=== PATIENT | female | born 1960 | race Caucasian/White ===

== ENCOUNTER → 2017-08-10 07:52 | Outpatient (CLI) | payer OTHER, SELFPAY ==
[2017-08-10 10:47] LABS: ALB/GLOB Ratio 1.1 RATIO (0.9-2.4); AST(SGOT) 27 U/L (15-37); Alanine Aminotransfer ALT/SGPT 25 U/L (13-56); Albumin, Serum 3.3 g/dL (3.2-5.0); Alkaline Phosphatase 87 U/L (45-117); Anion Gap 7 (5-15); BUN 15 mg/dL (7-18); BUN/Creat Ratio 24.5 RATIO (10-20); Bilirubin, Direct 0.15 mg/dL (0.00-0.30); Calcium,Total 8.6 mg/dL (8.5-10.1); Chloride 103 mmol/L (98-107); Cholesterol 150 mg/dL (200); Creatinine, Serum 0.61 mg/dL (0.55-1.02); EST Glomerular Filtration Rate 107 mL/min (>60); Est Glom Filt Rate - Afr Amer 130 mL/min (>60); Globulin 3.1 g/dL (2.2-4.2); Glucose 66 mg/dL (74-106); High Density Lipoprotein 80 mg/dL; Potassium 3.5 mmol/L (3.5-5.1); Protein, Total 6.4 g/dL (6.4-8.2); Sodium Level 141 mmol/L (136-145); Triglycerides 38 mg/dL; Very Low Density Lipoprotein 8 mg/dL (5-40)
[2017-08-10 12:42] LABS: Absolute Lymphocyte Count 1.02 X10^3/ul (0.83-4.51); Absolute Neutrophil Count 2.3 X10^3/uL (2.0-7.7); Basophil# 0.04 X10^3/uL; Eosinophil# 0.31 X10^3/uL; Eosinophils% 7.6 % (0-5); Hematocrit 38.3 % (37-47); Hemoglobin 13.1 g/dl (12.0-15.0); Lymphocyte # 1.02 X10^3/ul (4.0); Lymphocyte % 25.1 % (19-41); Mean Corp Hgb Conc 34.2 g/gl (32-36); Mean Corpuscular Hgb 31.2 pg (27.0-32.0); Mean Corpuscular Volume 91.2 fL (81-99); Mean Platelet Vol. 10.1 fl (6.2-12.0); Monocyte# 0.42 X10^3/uL; Monocyte% 10.3 % (0-10); Neutrophil # 2.28 X10^3/uL (2.7-7.7); Platelet Count 245 K/mm3 (150-450); RBC Distribution Width CV 11.7 % (11.6-14.6); RBC Distribution Width SD 38.5 fl (35.1-43.9); White Blood Count 4.1 K/mm3 (4.4-11.0)
[2017-08-10 12:55] LABS: POSITIVE COUNT NO; POSITIVE DIFFERENTIAL NO; POSITIVE MORPHOLOGY NO
== END ==
PROVIDERS: Nurse Practitioner Family; Family Provider Family Medicine; PCP Family Medicine; Visit Provider Internal Medicine Rheumatology
DX: E78.5 Hyperlipidemia, unspecified (principal); Z79.899 Other long term (current) drug therapy; I10 Essential (primary) hypertension; M06.4 Inflammatory polyarthropathy
CPT/HCPCS: 36415; 80053; 80061; 82248; 85025

== ENCOUNTER → 2018-02-02 10:15 | Outpatient (CLI) | payer OTHER, SELFPAY ==
[2018-02-02 12:10] LABS: Absolute Neutrophil Count 2.6 X10^3/uL (2.0-7.7); Basophil# 0.04 X10^3/uL; Basophil% 0.8 % (0-1); Eosinophil# 0.45 X10^3/uL; Eosinophils% 8.9 % (0-5); Hemoglobin 13.1 g/dl (12.0-15.0); Lymphocyte % 29.8 % (19-41); Mean Corp Hgb Conc 33.6 g/gl (32-36); Mean Corpuscular Volume 92.4 fL (81-99); Monocyte# 0.47 X10^3/uL; Monocyte% 9.3 % (0-10); Neutrophil # 2.56 X10^3/uL (2.7-7.7); Platelet Count 247 K/mm3 (150-450); RBC Distribution Width CV 11.8 % (11.6-14.6); RBC Distribution Width SD 39.4 fl (35.1-43.9); Red Blood Count 4.22 M/mm3 (4.2-5.4)
[2018-02-02 12:13] LABS: POSITIVE COUNT NO; POSITIVE DIFFERENTIAL NO; POSITIVE MORPHOLOGY NO
[2018-02-02 12:34] LABS: ALB/GLOB Ratio 1.2 RATIO (0.9-2.4); AST(SGOT) 23 U/L (15-37); Alanine Aminotransfer ALT/SGPT 26 U/L (13-56); Albumin, Serum 3.5 g/dL (3.2-5.0); Alkaline Phosphatase 91 U/L (45-117); Anion Gap 6 (5-15); BUN 14 mg/dL (7-18); BUN/Creat Ratio 21.9 RATIO (10-20); Calcium,Total 9.1 mg/dL (8.5-10.1); Chloride 103 mmol/L (98-107); Creatinine, Serum 0.64 mg/dL (0.55-1.02); EST Glomerular Filtration Rate 102 mL/min (>60); Est Glom Filt Rate - Afr Amer 123 mL/min (>60); Glucose 80 mg/dL (74-106); Potassium 4.1 mmol/L (3.5-5.1); Protein, Total 6.5 g/dL (6.4-8.2); Sodium Level 142 mmol/L (136-145)
== END ==
PROVIDERS: Family Provider Family Medicine; PCP Family Medicine; Visit Provider Internal Medicine Rheumatology
DX: M06.4 Inflammatory polyarthropathy (principal); I10 Essential (primary) hypertension
CPT/HCPCS: 36415; 80053; 85025

== ENCOUNTER → 2018-06-09 11:54 | Outpatient (CLI) | payer OTHER, SELFPAY ==
[2018-04-03 15:40] VITALS: BMI 27.1
--- NOTE | 2018-06-09 11:59 | RAD_ITS ---
STUDY: X-RAY - SACRUM/COCCYX REASON FOR EXAM: Female, 58 years old. Pain for 10 days after falling on ice TECHNIQUE: 3 view(s) of the sacrum and coccyx were obtained. COMPARISON: None. FINDINGS: Normal bilateral sacroiliac joints. Normal visualized sacral ala and fused sacral bodies. Normal sacrococcygeal junction with a normal angulation. Normal coccygeal segments. The presacral soft tissue structures are unremarkable. Axial calcification mass of the soft tissue pelvis likely representing calcified fibroid, although is nonspecific. RAD/Sacrum-Coccyx min 2 Views IMPRESSION: 1. No sacral fracture. 2. Probable calcified uterine fibroid. Electronically Signed: Tom Regan MD at 18:41 EST , Service support ,
== END ==
PROVIDERS: Family Provider Family Medicine; PCP Family Medicine; Referring Provider Family Medicine; Visit Provider Family Medicine
DX: M53.3 Sacrococcygeal disorders, not elsewhere classified (principal)
CPT/HCPCS: 72220

== ENCOUNTER → 2018-07-31 07:19 | Outpatient (CLI) | payer OTHER, SELFPAY ==
[2018-04-03 15:40] VITALS: BMI 27.1
[2018-07-31 10:23] LABS: Absolute Lymphocyte Count 1.16 X10^3/ul (0.83-4.51); Absolute Neutrophil Count 2.9 X10^3/uL (2.0-7.7); Basophil# 0.01 X10^3/uL; Basophil% 0.2 % (0-1); Eosinophil# 0.43 X10^3/uL; Eosinophils% 8.8 % (0-5); Hemoglobin 12.9 g/dl (12.0-15.0); Lymphocyte # 1.16 X10^3/ul (4.0); Lymphocyte % 23.7 % (19-41); Mean Corp Hgb Conc 33.1 g/gl (32-36); Mean Corpuscular Hgb 30.9 pg (27.0-32.0); Mean Corpuscular Volume 93.3 fL (81-99); Mean Platelet Vol. 10.2 fl (6.2-12.0); Monocyte# 0.39 X10^3/uL; Neutrophil # 2.91 X10^3/uL (2.7-7.7); Neutrophil % 59.3 % (47-70); Platelet Count 228 K/mm3 (150-450); RBC Distribution Width SD 40.5 fl (35.1-43.9); Red Blood Count 4.18 M/mm3 (4.2-5.4); White Blood Count 4.9 K/mm3 (4.4-11.0)
[2018-07-31 10:28] LABS: POSITIVE COUNT NO; POSITIVE DIFFERENTIAL NO; POSITIVE MORPHOLOGY NO
[2018-07-31 10:42] LABS: ALB/GLOB Ratio 1.1 RATIO (0.9-2.4); AST(SGOT) 25 U/L (15-37); Alanine Aminotransfer ALT/SGPT 26 U/L (13-56); Albumin, Serum 3.2 g/dL (3.2-5.0); Alkaline Phosphatase 91 U/L (45-117); Anion Gap 5 (5-15); BUN 16 mg/dL (7-18); BUN/Creat Ratio 28.7 RATIO (10-20); Calcium,Total 8.6 mg/dL (8.5-10.1); Chloride 107 mmol/L (98-107); Creatinine, Serum 0.56 mg/dL (0.55-1.02); EST Glomerular Filtration Rate 119 mL/min (>60); Est Glom Filt Rate - Afr Amer 144 mL/min (>60); Glucose 77 mg/dL (74-106); Potassium 3.7 mmol/L (3.5-5.1); Protein, Total 6.2 g/dL (6.4-8.2); Sodium Level 143 mmol/L (136-145)
== END ==
PROVIDERS: Family Provider Family Medicine; PCP Family Medicine; Referring Provider Internal Medicine Rheumatology; Visit Provider Internal Medicine Rheumatology
DX: M06.4 Inflammatory polyarthropathy (principal); I10 Essential (primary) hypertension
CPT/HCPCS: 36415; 80053; 85025

== ENCOUNTER → 2018-10-06 12:18 | Outpatient (CLI) | payer OTHER, SELFPAY ==
[2018-04-03 15:40] VITALS: BMI 27.1
--- NOTE | 2018-10-06 12:20 | CT_ITS ---
STUDY: CT ABDOMEN AND PELVIS WITH CONTRAST REASON FOR EXAM: Female, 58 years old. Left lower quadrant pain RADIATION DOSAGE (If Supplied By Facility): CTDIvol = ( 8.76 ) mGy, DLP = ( 797.60 ) mGycm TECHNIQUE: Transaxial images were obtained from the dome of the diaphragm to the symphysis pubis with oral contrast. 100 IV/Oral Isovue 300 was administered. Sagittal and coronal images were reconstructed. Individualized dose optimization techniques were used for this CT. COMPARISON: None. FINDINGS: The visualized lung bases are unremarkable. The visualized portions of the heart are within normal limits. Normal liver. Normal gallbladder and extrahepatic biliary system. Normal spleen. Normal pancreas. Normal bilateral adrenal glands. Bilateral renal cysts including measuring 3.4 cm on the right and 3.5 cm on the left. There is no hydronephrosis. Normal visualized stomach. Normal small intestine. Normal colon. There is moderate stool. There is non-visualization of the appendix. Normal abdominal aorta. Normal inferior vena cava. Normal retroperitoneum. Normal urinary bladder. There is calcified uterine fibroid. There is no free fluid in the abdomen or pelvis. Normal abdominal wall. There is dextroscoliosis with degenerative change of the spine. CT/Abdomen/Pelvis WITH Contrast IMPRESSION: Fibroid uterus. Renal cysts. No dilated loops of bowel. Electronically Signed: Jose G Conrad MD at 15:29 EDT , Service support ,
== END ==
PROVIDERS: Family Provider Family Medicine; PCP Family Medicine; Referring Provider Family Medicine; Visit Provider Family Medicine
DX: R10.9 Unspecified abdominal pain (principal)
CPT/HCPCS: 74177; Q9967

== ENCOUNTER → 2018-10-25 14:36 | Outpatient (CLI) | payer OTHER, SELFPAY ==
[2018-04-03 15:40] VITALS: BMI 27.1
[2018-10-25 18:44] LABS: AST(SGOT) 39 U/L (15-37); Alanine Aminotransfer ALT/SGPT 31 U/L (13-56); Albumin, Serum 3.4 g/dL (3.2-5.0); Alkaline Phosphatase 94 U/L (45-117); Bilirubin, Direct 0.14 mg/dL (0.00-0.30); Cholesterol 147 mg/dL (200); Globulin 3.2 g/dL (2.2-4.2); High Density Lipoprotein 79 mg/dL; Protein, Total 6.6 g/dL (6.4-8.2); Triglycerides 49 mg/dL; Very Low Density Lipoprotein 10 mg/dL (5-40)
== END ==
PROVIDERS: Family Provider Family Medicine; PCP Family Medicine; Referring Provider Internal Medicine Cardiovascular Disease; Visit Provider Internal Medicine Cardiovascular Disease
DX: E78.5 Hyperlipidemia, unspecified (principal); I25.10 Atherosclerotic heart disease of native coronary artery without angina pectoris
CPT/HCPCS: 36415; 80061; 80076

== ENCOUNTER → 2019-01-23 09:18 | Outpatient (CLI) | payer OTHER, SELFPAY ==
[2018-10-31 13:01] VITALS: BMI 25.7
[2019-01-23 10:33] LABS: Absolute Lymphocyte Count 1.31 X10^3/uL (0.83-4.51); Absolute Neutrophil Count 2.4 X10^3/uL (2.0-7.7); Basophil# 0.03 X10^3/uL; Basophil% 0.7 % (0-1); Eosinophil# 0.31 X10^3/uL; Eosinophils% 6.8 % (0-5); Hematocrit 38.8 % (37-47); Hemoglobin 13.1 g/dL (12.0-15.0); Lymphocyte # 1.31 X10^3/ul (4.0); Lymphocyte % 28.8 % (19-41); Mean Corp Hgb Conc 33.8 g/dL (32-36); Mean Corpuscular Hgb 30.7 pg (27.0-32.0); Mean Corpuscular Volume 90.9 fL (81-99); Mean Platelet Vol. 9.8 fl (6.2-12.0); NRBC Flagged by Analyzer 0 % (0-5); Neutrophil # 2.38 X10^3/uL (2.7-7.7); Neutrophil % 52.3 % (47-70); Platelet Count 242 K/mm3 (150-450); RBC Distribution Width CV 11.6 % (11.6-14.6); RBC Distribution Width SD 38.3 fl (35.1-43.9); Red Blood Count 4.27 M/mm3 (4.2-5.4); White Blood Count 4.6 K/mm3 (4.4-11.0)
[2019-01-23 11:15] LABS: ALB/GLOB Ratio 1.1 RATIO (0.9-2.4); AST(SGOT) 27 U/L (15-37); Alanine Aminotransfer ALT/SGPT 26 U/L (13-56); Albumin, Serum 3.2 g/dL (3.2-5.0); Alkaline Phosphatase 93 U/L (45-117); Anion Gap 4 (5-15); BUN 11 mg/dL (7-18); BUN/Creat Ratio 20.4 RATIO (10-20); Calcium,Total 8.8 mg/dL (8.5-10.1); Chloride 108 mmol/L (98-107); Creatinine, Serum 0.54 mg/dL (0.55-1.02); EST Glomerular Filtration Rate 124 mL/min (>60); Est Glom Filt Rate - Afr Amer 150 mL/min (>60); Glucose 89 mg/dL (74-106); Protein, Total 6.2 g/dL (6.4-8.2); Sodium Level 142 mmol/L (136-145)
== END ==
PROVIDERS: Family Provider Family Medicine; PCP Family Medicine; Referring Provider Internal Medicine Rheumatology; Visit Provider Internal Medicine Rheumatology
DX: M06.4 Inflammatory polyarthropathy (principal); I10 Essential (primary) hypertension
CPT/HCPCS: 36415; 80053; 85025

== ENCOUNTER → 2019-05-04 10:35 | Outpatient (CLI) | payer OTHER, SELFPAY ==
[2018-10-31 13:01] VITALS: BMI 25.7
[2019-05-04 12:16] LABS: AST(SGOT) 25 U/L (15-37); Alanine Aminotransfer ALT/SGPT 26 U/L (13-56); Albumin, Serum 3.2 g/dL (3.2-5.0); Alkaline Phosphatase 92 U/L (45-117); Bilirubin, Direct 0.13 mg/dL (0.00-0.30); Cholesterol 145 mg/dL (200); High Density Lipoprotein 79 mg/dL; Protein, Total 6.2 g/dL (6.4-8.2); Triglycerides 46 mg/dL; Very Low Density Lipoprotein 9 mg/dL (5-40)
== END ==
PROVIDERS: Family Provider Family Medicine; PCP Family Medicine; Referring Provider Internal Medicine Cardiovascular Disease; Visit Provider Internal Medicine Cardiovascular Disease
DX: E78.5 Hyperlipidemia, unspecified (principal)
CPT/HCPCS: 36415; 80061; 80076

== ENCOUNTER → 2019-06-08 15:00 | Outpatient (CLI) | payer OTHER, SELFPAY ==
[2019-05-07 11:19] VITALS: BMI 27.1
--- NOTE | 2019-06-08 15:05 | ECHOD_ITS ---
Reason For Study: CAD/ASHD Procedure This was a 2D Doppler, Color Flow transthoracic echocardiogram. Exam performed in department. Left Ventricle Normal size and thickness. The estimated ejection fraction is 65 %. Normal diastology for age. No regional wall motion abnormalities noted. Right Ventricle Normal size and thickness. Normal systolic function. Atria Normal left atrium. Normal right atrium. Normal atrial septum. Mitral Valve The mitral valve is structurally normal. No prolapse or stenosis seen. Trivial mitral valve insufficiency. Tricuspid Valve Normal tricuspid valve. Trivial tricuspid valve insufficiency. Right ventricular systolic pressure estimated to be 27 mmHg. Aortic Valve Normal aortic valve. Trisinus/trileaflet aortic valve. Pulmonic Valve Normal pulmonic valve. Trivial pulmonic valve insufficiency. Great Vessels Normal aortic root. Normal arch. Normal inferior vena cava. Inferior vena cava collapse with sniff. Pericardium/Pleural No pericardial effusion. MMode/2D Measurements & Calculations LVIDd: 4.5 cm IVSd: 1.1 cm Ao root diam: 2.7 cm LVIDs: 3.2 cm LVPWd: 1.0 cm RVDd: 3.4 cm FS: 30.0 % LAV(MOD-bp): 32.7 ml LVAd ap4: 21.5 cm2 SV(MOD-sp4): 37.6 ml LAV(MOD-bp) Indexed: 17.9 ml/m2 EDV(MOD-sp4): 57.0 ml LAV(MOD-sp2): 44.0 ml EDV(sp4-el): 56.1 ml LAV(MOD-sp4): 19.2 ml LVAs ap4: 11.3 cm2 ESV(MOD-sp4): 19.3 ml ESV(sp4-el): 18.8 ml EF(MOD-sp4): 66.1 % EF(sp4-el): 66.4 % SV(sp4-el): 37.2 ml LA A4 area: 9.4 cm2 LA dimension(2D): 3.3 cm RA A4 area: 11.0 cm2 Doppler Measurements & Calculations MV E max arpan: 51.8 cm/sec Lat Peak E' Arpan: 8.5 cm/sec Med Peak E' Arpan: 7.8 cm/sec MV A max arpan: 43.9 cm/sec E/E' lat: 6.1 E/E' med: 6.6 MV E/A: 1.2 Ao V2 max: 128.6 cm/sec LV V1 max: 83.3 cm/sec PA V2 max: 77.0 cm/sec Ao max P.6 mmHg LV V1 max P.8 mmHg Ao V2 mean: 90.9 cm/sec Ao mean P.7 mmHg Ao V2 VTI: 24.3 cm PI end-d arpan: 105.3 cm/sec TR max arpan: 231.5 cm/sec TR max P.4 mmHg Interpretation Summary The estimated ejection fraction is 65 %. Normal diastology for age. Trivial mitral valve insufficiency. Trivial tricuspid valve insufficiency. Right ventricular systolic pressure estimated to be 27 mmHg. Compared to echo report dated 03/07/2014, no appreciable changes noted. Ordering Physician: Timo Araiza Referring Physician: Bryanna Anders Performed By: Ana Craig, DANIEL, RVT
== END ==
PROVIDERS: PCP Family Medicine; Referring Provider Internal Medicine Cardiovascular Disease; Visit Provider Internal Medicine Cardiovascular Disease
DX: I10 Essential (primary) hypertension (principal); I25.10 Atherosclerotic heart disease of native coronary artery without angina pectoris; E78.5 Hyperlipidemia, unspecified; Z98.890 Other specified postprocedural states
CPT/HCPCS: 93306

== ENCOUNTER → 2019-06-15 10:35 | Outpatient (CLI) | payer OTHER, SELFPAY ==
[2019-05-07 11:19] VITALS: BMI 27.1
--- NOTE | 2019-06-15 10:36 | STE_ITS ---
Reason For Study: CAD Stress Results Protocol: [facility]le Protocol Maximum Predicted HR: 162 bpm Target HR: 138 bpm % Maximum Predicted HR: 100 % DurationHeart Rate Stage (mm:ss) (bpm) BP Comment Baseline 71 130/68No Chest Pain [facility]le Protocol Stage I 3:00 105 122/70No Chest Pain [facility]le Protocol Stage II 3:00 129 130/68No Chest Pain [facility]le Protocol Stage III 3:00 133 142/64No Chest Pain [facility]le Protocol Stage IV 3:00 162 152/58No Chest Pain Recovery 96 122/70No Chest Pain Stress Duration: 12:00 mm:ss Maximum Stress HR: 162 bpm METS: 13 Baseline Echocardiogram Findings The estimated ejection fraction is 65 %. Stress Echo Wall motion Data Resting WM Intermediate WM Stress WM Resting Wall Motion Wall Motion Stress No regional wall motion No regional wall motion abnormalities noted. abnormalities noted. EKG Data The baseline ECG displays normal sinus rhythm. The patient exercised according to the regular Earle protocol for a total duration of 12:00. The maximum heart rate attained was 171 beats per minute. This was 105% of maximum predicted heart rate. The patient exercised into stage 5 of the Earle protocol. At peak exercise, upsloping ST changes only were noted, which did not meet the criteria for ischemia. No clinical angina was noted. Interpretation Summary The estimated ejection fraction is 65 %. Normal, adequate, treadmill echocardiogram. Negative for ischemia by EKG and echocardiographic criteria. No anginal symptoms noted. Rare PVC noted. Appropriate blood pressure response to exercise. Above average exercise capacity for age. Patient tolerated procedure well. No complications. Test terminated due to target heart rate achieved. Final LVEF is 75%. Ordering Physician: Timo Araiza Referring Physician: Bryanna Anders Performed By: Shaina Jones, STEPHONCS, RVT
== END ==
PROVIDERS: PCP Family Medicine; Referring Provider Internal Medicine Cardiovascular Disease; Visit Provider Internal Medicine Cardiovascular Disease
DX: I10 Essential (primary) hypertension (principal); I25.10 Atherosclerotic heart disease of native coronary artery without angina pectoris; E78.5 Hyperlipidemia, unspecified
CPT/HCPCS: 93017; 93350

== ENCOUNTER → 2019-07-26 14:46 | Outpatient (CLI) | payer OTHER, SELFPAY ==
[2019-05-07 11:19] VITALS: BMI 27.1
[2019-07-26 17:56] LABS: Absolute Neutrophil Count 3.4 X10^3/uL (2.0-7.7); Basophil# 0.04 X10^3/uL; Basophil% 0.7 % (0-1); Eosinophil# 0.26 X10^3/uL; Eosinophils% 4.7 % (0-5); Hematocrit 41.2 % (37-47); Hemoglobin 13.1 g/dL (12.0-15.0); Lymphocyte % 23.7 % (19-41); Mean Corp Hgb Conc 31.8 g/dL (32-36); Mean Corpuscular Hgb 29.6 pg (27.0-32.0); Monocyte% 9.1 % (0-10); NRBC Flagged by Analyzer 0 % (0-5); Neutrophil # 3.37 X10^3/uL (2.7-7.7); Neutrophil % 61.4 % (47-70); Platelet Count 265 K/mm3 (150-450); RBC Distribution Width CV 12.2 % (11.6-14.6); RBC Distribution Width SD 42.1 fl (35.1-43.9); Red Blood Count 4.43 M/mm3 (4.2-5.4); White Blood Count 5.5 K/mm3 (4.4-11.0)
[2019-07-26 18:00] LABS: AST(SGOT) 27 U/L (15-37); Alanine Aminotransfer ALT/SGPT 30 U/L (13-56); Albumin, Serum 3.4 g/dL (3.2-5.0); Alkaline Phosphatase 107 U/L (45-117); Anion Gap 5 (5-15); BUN 15 mg/dL (7-18); BUN/Creat Ratio 23.8 RATIO (10-20); Calcium,Total 8.7 mg/dL (8.5-10.1); Chloride 104 mmol/L (98-107); Creatinine, Serum 0.63 mg/dL (0.55-1.02); EST Glomerular Filtration Rate 103 mL/min (>60); Est Glom Filt Rate - Afr Amer 125 mL/min (>60); Globulin 3.3 g/dL (2.2-4.2); Glucose 84 mg/dL (74-106); Potassium 3.5 mmol/L (3.5-5.1); Protein, Total 6.7 g/dL (6.4-8.2); Sodium Level 141 mmol/L (136-145)
== END ==
PROVIDERS: PCP Family Medicine; Referring Provider Internal Medicine Rheumatology; Visit Provider Internal Medicine Rheumatology
DX: M06.4 Inflammatory polyarthropathy (principal); I10 Essential (primary) hypertension
CPT/HCPCS: 36415; 80053; 85025

== ENCOUNTER → 2019-12-06 09:22 | Outpatient (CLI) | payer OTHER, SELFPAY ==
[2019-05-07 11:19] VITALS: BMI 27.1
[2019-12-06 12:44] LABS: AST(SGOT) 23 U/L (15-37); Alanine Aminotransfer ALT/SGPT 21 U/L (13-56); Albumin, Serum 3.1 g/dL (3.2-5.0); Alkaline Phosphatase 87 U/L (45-117); Cholesterol 155 mg/dL (200); High Density Lipoprotein 77 mg/dL; Protein, Total 6.1 g/dL (6.4-8.2); Triglycerides 42 mg/dL; Very Low Density Lipoprotein 8 mg/dL (5-40)
== END ==
PROVIDERS: PCP Family Medicine; Referring Provider Internal Medicine Cardiovascular Disease; Visit Provider Internal Medicine Cardiovascular Disease
DX: E78.00 Pure hypercholesterolemia, unspecified (principal); E78.5 Hyperlipidemia, unspecified
CPT/HCPCS: 36415; 80061; 80076

== ENCOUNTER → 2019-12-28 13:59 | Outpatient (CLI) | payer OTHER, SELFPAY ==
[2019-12-13 10:27] VITALS: BMI 29.7
--- NOTE | 2019-12-28 13:59 | ECHOD_ITS ---
Reason For Study: CP Procedure This was a 2D Doppler, Color Flow transthoracic echocardiogram. Exam performed in department. Left Ventricle Normal size and thickness. The estimated ejection fraction is 65 %. Stage 1 diastolic dysfunction. No regional wall motion abnormalities noted. Right Ventricle Normal size and thickness. Normal systolic function. Atria Normal left atrium. Normal right atrium. Normal atrial septum. Mitral Valve The mitral valve is structurally normal. No prolapse or stenosis seen. Tricuspid Valve Normal tricuspid valve. Trivial tricuspid valve insufficiency. Unable to estimate RV systolic pressure due to insufficient tricuspid regurgitant envelope. Aortic Valve Trisinus/trileaflet aortic valve. Pulmonic Valve Normal pulmonic valve. Great Vessels Normal aortic root. Normal arch. Normal inferior vena cava. Inferior vena cava collapse with sniff. Pericardium/Pleural No pericardial effusion. MMode/2D Measurements & Calculations LVIDd: 4.8 cm IVSd: 1.1 cm Ao root diam: 3.3 cm LVIDs: 2.7 cm LVPWd: 0.94 cm LA dimension: 3.9 cm FS: 43.1 % LAV(MOD-bp): 51.3 ml LA A4 area: 15.8 cm2 RA A4 area: 16.6 cm2 LAV(MOD-bp) Indexed: 27.4 ml/m2 LAV(MOD-sp2): 60.1 ml LAV(MOD-sp4): 41.9 ml Time Measurements MV dec time: 0.24 sec Doppler Measurements & Calculations MV E max arpan: 75.5 cm/sec Lat Peak E' Arpan: 8.9 cm/sec Med Peak E' Arpan: 14.2 cm/sec MV A max arpan: 87.9 cm/sec E/E' lat: 8.5 E/E' med: 5.3 MV E/A: 0.86 MV V2 max: 111.7 cm/sec MV P1/2t max arpan: 111.0 cm/sec Ao V2 max: 157.3 cm/sec MV max P.0 mmHg MV P1/2t: 51.2 msec Ao max P.9 mmHg MV V2 mean: 57.3 cm/sec MV dec slope: 634.9 cm/sec2 Ao V2 mean: 103.9 cm/sec MV mean P.5 mmHg MVA(P1/2t): 4.3 cm2 Ao mean P.0 mmHg MV V2 VTI: 26.4 cm Ao V2 VTI: 30.3 cm LV V1 max: 118.7 cm/sec PA V2 max: 95.3 cm/sec LV V1 max P.6 mmHg LV V1 mean P.5 mmHg LV V1 mean: 72.5 cm/sec LV V1 VTI: 25.2 cm Interpretation Summary The estimated ejection fraction is 65 %. Stage 1 diastolic dysfunction. Trivial tricuspid valve insufficiency. Unable to estimate RV systolic pressure due to insufficient tricuspid regurgitant envelope. Compared to echo report dated 06/08/2019, no appreciable changes noted. Ordering Physician: Timo Araiza Referring Physician: Bryanna Anders M.D. Performed By: Tylor Chavarria RCS
== END ==
PROVIDERS: PCP Family Medicine; Referring Provider Internal Medicine Cardiovascular Disease; Visit Provider Internal Medicine Cardiovascular Disease
DX: R07.9 Chest pain, unspecified (principal); I25.10 Atherosclerotic heart disease of native coronary artery without angina pectoris; E78.5 Hyperlipidemia, unspecified; I10 Essential (primary) hypertension
CPT/HCPCS: 93306

== ENCOUNTER → 2020-01-04 10:26 | Outpatient (CLI) | payer OTHER, SELFPAY ==
[2019-12-13 10:27] VITALS: BMI 29.7
--- NOTE | 2020-01-04 10:27 | STE_ITS ---
Reason For Study: CHEST PAIN Stress Results Protocol: Earle Protocol Maximum Predicted HR: 162 bpm Target HR: 138 bpm % Maximum Predicted HR: 102 % DurationHeart Rate Stage (mm:ss) (bpm) BP Comment BASELINE 71 126/74 STAGE 1 3:00 110 140/62 STAGE 2 3:00 121 148/78 STAGE 3 3:00 129 158/72 STAGE 4 3:00 166 192/72SOB RECOVERY 102 140/82 Stress Duration: 12:00 mm:ss Maximum Stress HR: 166 bpm Baseline Echocardiogram Findings The estimated ejection fraction is 65 %. Stress Echo Wall motion Data Resting WM Intermediate WM Stress WM Resting Wall Motion Wall Motion Stress No regional wall motion No regional wall motion abnormalities noted. abnormalities noted. EKG Data The baseline ECG displays normal sinus rhythm. The patient exercised according to the regular Earle protocol for a total duration of 12:01. The maximum heart rate attained was 166 beats per minute. This was 102% of maximum predicted heart rate. The patient exercised into stage 5 of the Earle protocol. During stress, there were no ST or T wave changes noted to suggest ischemia. No clinical angina was noted. Interpretation Summary The estimated ejection fraction is 65 %. Normal, adequate, treadmill echocardiogram. Negative for ischemia by EKG and echocardiographic criteria. No anginal symptoms noted. Rare PVCs noted. Appropriate blood pressure response to exercise. Average exercise capacity for age. Test terminated due to the attainment target heart rate, and dyspnea. Final LVEF is 75%. Patient tolerated procedure well. No complications. Ordering Physician: Timo Araiza Referring Physician: Timo Araiza Performed By: Ainsley Dumas RDCS
== END ==
PROVIDERS: PCP Family Medicine; Referring Provider Internal Medicine Cardiovascular Disease; Visit Provider Internal Medicine Cardiovascular Disease
DX: I25.10 Atherosclerotic heart disease of native coronary artery without angina pectoris (principal); R07.9 Chest pain, unspecified; I10 Essential (primary) hypertension; E78.5 Hyperlipidemia, unspecified; Z86.19 Personal history of other infectious and parasitic diseases
CPT/HCPCS: 93017; 93350

== ENCOUNTER → 2020-01-29 16:42 | Outpatient (CLI) | payer OTHER, SELFPAY ==
[2019-12-13 10:27] VITALS: BMI 29.7
[2020-01-29 17:42] LABS: Absolute Lymphocyte Count 1.38 X10^3/uL (0.83-4.51); Absolute Neutrophil Count 2.9 X10^3/uL (2.0-7.7); Basophil# 0.05 X10^3/uL; Eosinophil# 0.28 X10^3/uL; Eosinophils% 5.4 % (0-5); Hematocrit 38.8 % (37-47); Lymphocyte # 1.38 X10^3/ul (4.0); Lymphocyte % 26.8 % (19-41); Mean Corp Hgb Conc 33.5 g/dL (32-36); Mean Corpuscular Hgb 31.1 pg (27.0-32.0); Mean Corpuscular Volume 92.8 fL (81-99); Mean Platelet Vol. 9.9 fl (6.2-12.0); Monocyte# 0.49 X10^3/uL; Monocyte% 9.5 % (0-10); NRBC Flagged by Analyzer 0 % (0-5); Neutrophil # 2.92 X10^3/uL (2.7-7.7); Neutrophil % 56.9 % (47-70); Platelet Count 265 K/mm3 (150-450); RBC Distribution Width CV 11.7 % (11.6-14.6); RBC Distribution Width SD 39.7 fl (35.1-43.9); Red Blood Count 4.18 M/mm3 (4.2-5.4); White Blood Count 5.1 K/mm3 (4.4-11.0)
[2020-01-29 18:38] LABS: ALB/GLOB Ratio 1.1 RATIO (0.9-2.4); AST(SGOT) 28 U/L (15-37); Alanine Aminotransfer ALT/SGPT 26 U/L (13-56); Albumin, Serum 3.4 g/dL (3.2-5.0); Alkaline Phosphatase 105 U/L (45-117); Anion Gap 3 (5-15); BUN 15 mg/dL (7-18); BUN/Creat Ratio 21.9 RATIO (10-20); Chloride 105 mmol/L (98-107); Creatinine, Serum 0.68 mg/dL (0.55-1.02); EST Glomerular Filtration Rate 93 mL/min (>60); Est Glom Filt Rate - Afr Amer 113 mL/min (>60); Globulin 3.2 g/dL (2.2-4.2); Glucose 98 mg/dL (74-106); Potassium 3.9 mmol/L (3.5-5.1); Protein, Total 6.6 g/dL (6.4-8.2); Sodium Level 139 mmol/L (136-145)
[2020-06-10 11:07] LABS: AST(SGOT) 30 U/L (15-37); Alanine Aminotransfer ALT/SGPT 26 U/L (13-56); Albumin, Serum 3.4 g/dL (3.2-5.0); Alkaline Phosphatase 104 U/L (45-117); Bilirubin, Direct 0.19 mg/dL (0.00-0.30); Cholesterol 171 mg/dL (200); Globulin 3.2 g/dL (2.2-4.2); High Density Lipoprotein 95 mg/dL; Protein, Total 6.6 g/dL (6.4-8.2); Triglycerides 46 mg/dL; Very Low Density Lipoprotein 9 mg/dL (5-40)
== END ==
PROVIDERS: Internal Medicine Cardiovascular Disease; PCP Family Medicine; Referring Provider Internal Medicine Rheumatology; Visit Provider Internal Medicine Rheumatology
DX: M06.4 Inflammatory polyarthropathy (principal); I10 Essential (primary) hypertension
CPT/HCPCS: 36415; 80053; 80061; 80076; 85025

== ENCOUNTER → 2020-06-10 08:20 | Outpatient (CLI) | payer OTHER, SELFPAY ==
[2019-12-13 10:27] VITALS: BMI 29.7
== END ==
PROVIDERS: PCP Family Medicine; Referring Provider Internal Medicine Cardiovascular Disease; Visit Provider Internal Medicine Cardiovascular Disease
DX: Z00.00 Encounter for general adult medical examination without abnormal findings (principal)

== ENCOUNTER → 2020-07-01 14:20 | Outpatient (CLI) | payer OTHER, SELFPAY ==
[2020-06-20 15:54] VITALS: BMI 30.9
[2020-07-01 17:30] LABS: Absolute Lymphocyte Count 1.28 X10^3/uL (0.83-4.51); Absolute Neutrophil Count 2.7 X10^3/uL (2.0-7.7); Basophil# 0.05 X10^3/uL; Basophil% 1.1 % (0-1); Eosinophil# 0.26 X10^3/uL; Eosinophils% 5.6 % (0-5); Hematocrit 40.9 % (37-47); Hemoglobin 13.3 g/dL (12.0-15.0); Lymphocyte # 1.28 X10^3/ul (4.0); Lymphocyte % 27.7 % (19-41); Mean Corp Hgb Conc 32.5 g/dL (32-36); Mean Corpuscular Hgb 30.2 pg (27.0-32.0); Mean Corpuscular Volume 92.7 fL (81-99); Mean Platelet Vol. 10.1 fl (6.2-12.0); Monocyte# 0.37 X10^3/uL; NRBC Flagged by Analyzer 0 % (0-5); Neutrophil # 2.65 X10^3/uL (2.7-7.7); Neutrophil % 57.4 % (47-70); Platelet Count 258 K/mm3 (150-450); RBC Distribution Width CV 11.9 % (11.6-14.6); RBC Distribution Width SD 41.1 fl (35.1-43.9); Red Blood Count 4.41 M/mm3 (4.2-5.4); White Blood Count 4.6 K/mm3 (4.4-11.0)
[2020-07-01 17:44] LABS: CRP < 2.90 mg/L (0.0-3.0)
[2020-07-01 17:54] LABS: Erythrocyte Sedimentation Rate 2 mm/hr (0-30)
[2020-07-05 09:17] LABS: B. pertussis IgA 1.1 index (0.0-0.9); B. pertussis IgG 2.75 index (0.00-0.94); B. pertussis IgM 1.3 index (0.0-0.9)
== END ==
PROVIDERS: PCP Family Medicine; Referring Provider Family Medicine; Visit Provider Family Medicine
DX: R59.1 Generalized enlarged lymph nodes (principal)
CPT/HCPCS: 36415; 85025; 85652; 86140

== ENCOUNTER → 2020-07-02 11:29 | Outpatient (CLI) | payer OTHER, SELFPAY ==
[2020-06-20 15:54] VITALS: BMI 30.9
--- NOTE | 2020-07-02 11:35 | RAD_ITS ---
STUDY: X-RAY CHEST REASON FOR EXAM: Female, 60 years old. Patient complains of cough TECHNIQUE: PA and lateral views of the chest. COMPARISON: Comparison is made with prior study dated 03/11/2014. FINDINGS: Hyperinflation. Scattered calcified granulomas. There is no demonstrated pleural abnormality. Normal size heart. Normal mediastinum and tara. Normal visualized pulmonary arteries. There is atherosclerotic tortuosity of the aortic arch and descending thoracic aorta. There are degenerative changes of the visualized thoracic spine. Normal visualized ribs, clavicles, and shoulders. There is no demonstrated abnormality of the visualized soft tissue structures of the upper abdomen. RAD/Chest PA and Lateral IMPRESSION: Hyperinflation. The lungs are clear. Electronically Signed: Robert Judd MD at 13:40 EST , Service support ,
== END ==
PROVIDERS: PCP Family Medicine; Referring Provider Family Medicine; Visit Provider Family Medicine
DX: R05 Cough (principal)
CPT/HCPCS: 71046

== ENCOUNTER → 2020-07-08 16:45 | Outpatient (CLI) | payer OTHER, SELFPAY ==
[2020-06-20 15:54] VITALS: BMI 30.9
--- NOTE | 2020-07-08 16:47 | CT_ITS ---
STUDY: CT SOFT TISSUE NECK WITH CONTRAST REASON FOR EXAM: Female, 60 years old. Lymphadenopathy x few months slightly worse on left. Hx hypertension. RADIATION DOSAGE (If Supplied By Facility): CTDIvol = ( 17.24 ) mGy, DLP = ( 534.17 ) mGycm TECHNIQUE: The patient was scanned in a multi-detector CT scanner. High resolution transaxial imaging was performed following intravenous administration of IV 75mL Isovue-300. Sagittal and coronal images were reconstructed. Individualized dose optimization techniques were used for this CT. COMPARISON: None. FINDINGS: Normal bilateral parotid glands. 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 Normal bilateral parapharyngeal spaces. Normal bilateral carotid spaces. Normal bilateral sublingual and submandibular glands and spaces. Normal visualized nasopharynx. Normal retropharyngeal space. Normal perivertebral space. Normal visualized bilateral faucial tonsils. The visualized tongue, tongue base and oropharynx are normal. The visualized cervical lymph nodes (levels I-) are within normal size limits, and maintain normal morphology. There is no demonstrated solid or cystic mass lesion. There is no abnormal contrast enhancement. Normal epiglottis, bilateral vallecula and hypopharynx. The pre-epiglottic and paraglottic adipose spaces are normal. Normal visualized bilateral piriform sinuses, aryepiglottic folds, vocal cords, and arytenoid-cricoid articulations. Normal subglottic trachea. Normal bilateral lobes of the thyroid gland. Normal visualized pulmonary apices. Normal visualized paranasal sinuses. Normal visualized cervical spine. CT/Soft Tissue Neck WITH Contrast IMPRESSION: Normal enhanced CT examination of the soft tissues of the neck. Electronically Signed: Mariya Blanco MD at 6:59 EST Tel , Service support ,
== END ==
PROVIDERS: PCP Family Medicine; Referring Provider Family Medicine; Visit Provider Family Medicine
DX: R59.1 Generalized enlarged lymph nodes (principal)
CPT/HCPCS: 70491; Q9967

== ENCOUNTER 2020-07-17 10:55 | Emergency (ER) | payer OTHER, SELFPAY ==
[2020-06-20 15:54] VITALS: BMI 30.9
[2020-07-17 10:56] VITALS: BP 145/82; PULSE 87; RESP 16; TEMP 36.2; O2SAT 99; BMI 30.7
--- NOTE | 2020-07-17 11:12 | EKG12_ITS ---
Test Reason : COUGH Blood Pressure : / mmHG Vent. Rate : 069 BPM Atrial Rate : 069 BPM P-R Int : 130 ms QRS Dur : 092 ms QT Int : 418 ms P-R-T Axes : 057 047 000 degrees QTc Int : 447 ms Normal sinus rhythm Normal ECG Confirmed by KENYA RIVERA, JENNIFER ([id number]), sound editor PETROS LOJA ([id number]) on 07/21/2020 2:39:12 PM Referred By: DARIA Confirmed By:JENNIFER ZAMBRANO MD
--- NOTE | 2020-07-17 11:15 | CT_ITS ---
STUDY: CTA CHEST REASON FOR EXAM: Female, 60 years old. Dyspnea. Cough, left-sided chest pain and left shoulder pain. This is worse with deep breath. History of prior COVID. RADIATION DOSAGE (If Supplied By Facility): CTDIvol = ( 11.33 ) mGy, DLP = ( 377.13 ) mGycm TECHNIQUE: The examination was performed with the intravenous administration of IV 100mL Isovue-370. Post-processing of the angiographic images was performed, with multiplanar reformation and 3D reconstruction. Individualized dose optimization techniques were used for this CT. COMPARISON: Comparison is made with prior examination dated 01/05/2013. FINDINGS: Normal enhancement of the main pulmonary artery and right and left pulmonary arteries. Normal enhancement of the bilateral peripheral pulmonary arteries. There is no demonstrated pulmonary embolism. Normal thoracic aorta and visualized great vessels. There is no demonstrated aortic dissection. Normal heart and pericardium. Normal mediastinum. Normal hilar regions. Normal visualized trachea and bronchi. The lungs are well expanded. Normal pulmonary parenchyma. Normal pleura. Normal chest wall structures. There are degenerative changes of thoracic spine. Normal visualized upper abdomen. CT/CTA Chest W/WO Contrast IMPRESSION: No acute abnormality is seen. Electronically Signed: Robert Judd MD at 12:56 EST , Service support ,
--- NOTE | 2020-07-17 11:33 | ED.DCSUM_ITS ---
- ER Visit Summary Date of Service: 07/17/20 Chief Complaint: Chest pain History of Present Illness: The patient is a 60 F who presents with chest pain that began yesterday. Patient states the pain began in her left scapula and then radiated around to the front of her left chest. Patient describes it as a peña. Patient states the pain is worse with coughing, bending, and deep breathing. Patient states the pain is better whenever she applies pressure to her left upper chest. Patient admits to some rhinorrhea. Patient also admits to some shortness of breath and cough. Patient denies any sputum production. Patient admits to nausea but denies any vomiting. Physical Examination: Vital signs are stable. Patient is afebrile. Patient is in no acute distress. Oral mucosa is pink and moist. Neck is supple. Trachea is midline. There is no JVD noted. Heart was regular rate and rhythm. Lungs are clear and equal bilaterally. There is no reproducible tenderness over the left upper chest. Abdomen is soft. Bowel sounds are normal. There is no tenderness. There is no rebound or guarding noted. Skin is warm dry. Cranial nerves II through XII are intact. There are no focal motor or sensory deficits noted. Extremities are intact. There is no calf tenderness or edema. Test Results: EKG was obtained. On my interpretation, there is a normal sinus rhythm with a rate of 69. VA interval, QRS interval, and QT interval are within normal limits. [place] is normal. There are no acute ST or T wave changes. CBC and comprehensive metabolic profile were within normal limits. Troponin was normal. COVID-19 rapid antigen was obtained and was negative. CTA of the chest was obtained. There is no acute cardiopulmonary process noted. This was interpreted by the radiologist and reviewed by myself. Emergency Department Course and Treatment: Patient was given a dose of Toradol here. Patient was given a prescription for Naprosyn. Patient has a HEART score of 3. Patient was advised that this is low risk for acute cardiac event. Case was discussed with Dr. Wilian Cyr. He is agreeable with the plan. He will follow up with the patient. Patient was instructed to follow-up with her primary care physician in 5 to 7 days. Patient understood and was agreeable with the plan. All questions were answered. Disposition: Discharge home Impression: 1. Chest pain This note was generated with [employer] software. It may contain incorrect words, spelling, and punctuation that were not noted in review of the chart prior to signing ED Disposition - Plan for ED Patient: Disposition: Home or Assisted Living Diagnosis: Chest pain Instructions: ED Chest Pain, Uncertain Cause Prescriptions: Naproxen [Naprosyn] 500 mg PO BID PRN #20 tab Transmission Status: Pending to [id number] Referrals: Bryanna Anders MD [Primary Care Provider] - 3-5 Days
[2020-07-17 11:39] VITALS: BP 142/97; PULSE 89; RESP 22; O2SAT 100
[2020-07-17 11:40] VITALS: O2SAT 100
[2020-07-17 11:50] LABS: Absolute Lymphocyte Count 1.15 X10^3/uL (0.83-4.51); Basophil# 0.03 X10^3/uL; Basophil% 0.6 % (0-1); Eosinophils% 4.2 % (0-5); Hematocrit 41.8 % (37-47); Hemoglobin 13.9 g/dL (12.0-15.0); Lymphocyte # 1.15 X10^3/ul (4.0); Lymphocyte % 24.2 % (19-41); Mean Corp Hgb Conc 33.3 g/dL (32-36); Mean Corpuscular Hgb 30.4 pg (27.0-32.0); Mean Corpuscular Volume 91.5 fL (81-99); Mean Platelet Vol. 9.1 fl (6.2-12.0); Monocyte# 0.35 X10^3/uL; Monocyte% 7.4 % (0-10); NRBC Flagged by Analyzer 0 % (0-5); Neutrophil # 3.01 X10^3/uL (2.7-7.7); Neutrophil % 63.2 % (47-70); Platelet Count 271 K/mm3 (150-450); RBC Distribution Width CV 11.9 % (11.6-14.6); RBC Distribution Width SD 39.7 fl (35.1-43.9); Red Blood Count 4.57 M/mm3 (4.2-5.4); White Blood Count 4.8 K/mm3 (4.4-11.0)
[2020-07-17 12:17] LABS: ALB/GLOB Ratio 1.1 RATIO (0.9-2.4); AST(SGOT) 32 U/L (15-37); Alanine Aminotransfer ALT/SGPT 31 U/L (13-56); Albumin, Serum 3.6 g/dL (3.2-5.0); Alkaline Phosphatase 108 U/L (45-117); Anion Gap 6 (5-15); BUN 12 mg/dL (7-18); BUN/Creat Ratio 18.4 RATIO (10-20); Calcium,Total 9.6 mg/dL (8.5-10.1); Chloride 105 mmol/L (98-107); Creatinine, Serum 0.65 mg/dL (0.55-1.02); EST Glomerular Filtration Rate 99 mL/min (>60); Est Glom Filt Rate - Afr Amer 120 mL/min (>60); Estimated Creatinine Clearance 83.86 ml/min; Globulin 3.2 g/dL (2.2-4.2); Glucose 81 mg/dL (74-106); Potassium 3.9 mmol/L (3.5-5.1); Protein, Total 6.8 g/dL (6.4-8.2); Sodium Level 142 mmol/L (136-145)
[2020-07-17] MEDS: Ketorolac 30 MG/ML Syringe IV (13:32)
[2020-07-17 13:41] VITALS: BP 135/82; PULSE 70; RESP 18; O2SAT 98
== END 2020-07-17 13:42 | disposition home or self-care (01) ==
PROVIDERS: Emergency Provider Emergency Medicine; PCP Family Medicine
DX: R07.9 Chest pain, unspecified (principal); R06.02 Shortness of breath; R05 Cough; I25.10 Atherosclerotic heart disease of native coronary artery without angina pectoris; I10 Essential (primary) hypertension; E78.00 Pure hypercholesterolemia, unspecified; Z79.82 Long term (current) use of aspirin; Z79.899 Other long term (current) drug therapy
CPT/HCPCS: 71275; 80053; 84484; 85025; 87426; 93005; 96374; 99285; Q9967; A4216

== ENCOUNTER → 2020-08-13 12:32 | Outpatient (CLI) | payer OTHER, SELFPAY ==
[2020-07-17 10:56] VITALS: BMI 30.7
[2020-08-13 15:37] LABS: Absolute Neutrophil Count 1.8 X10^3/uL (2.0-7.7); Basophil# 0.04 X10^3/uL; Basophil% 1.2 % (0-1); Eosinophils% 5.8 % (0-5); Hematocrit 38.8 % (37-47); Lymphocyte % 31.9 % (19-41); Mean Corp Hgb Conc 33.5 g/dL (32-36); Mean Corpuscular Hgb 30.8 pg (27.0-32.0); Mean Corpuscular Volume 91.9 fL (81-99); Mean Platelet Vol. 10.2 fl (6.2-12.0); Monocyte# 0.34 X10^3/uL; Monocyte% 9.9 % (0-10); NRBC Flagged by Analyzer 0 % (0-5); Neutrophil # 1.76 X10^3/uL (2.7-7.7); Neutrophil % 50.9 % (47-70); POSITIVE MORPHOLOGY YES; Platelet Count 251 K/mm3 (150-450); RBC Distribution Width CV 11.7 % (11.6-14.6); RBC Distribution Width SD 39.8 fl (35.1-43.9); Red Blood Count 4.22 M/mm3 (4.2-5.4); White Blood Count 3.5 K/mm3 (4.4-11.0)
[2020-08-13 15:43] LABS: AST(SGOT) 28 U/L (15-37); Alanine Aminotransfer ALT/SGPT 30 U/L (13-56); Albumin, Serum 3.3 g/dL (3.2-5.0); Alkaline Phosphatase 96 U/L (45-117); Anion Gap 1 (5-15); BUN 14 mg/dL (7-18); BUN/Creat Ratio 22.8 RATIO (10-20); Calcium,Total 9.4 mg/dL (8.5-10.1); Chloride 104 mmol/L (98-107); Creatinine, Serum 0.62 mg/dL (0.55-1.02); EST Glomerular Filtration Rate 106 mL/min (>60); Est Glom Filt Rate - Afr Amer 128 mL/min (>60); Globulin 3.3 g/dL (2.2-4.2); Glucose 75 mg/dL (74-106); Potassium 3.8 mmol/L (3.5-5.1); Protein, Total 6.6 g/dL (6.4-8.2); Sodium Level 139 mmol/L (136-145)
[2020-08-13 16:10] LABS: Differential Indicated SCAN CRITERIA MET
[2020-08-13 16:32] LABS: Differential Comment SCANNED
== END ==
PROVIDERS: PCP Family Medicine; Referring Provider Internal Medicine Rheumatology; Visit Provider Internal Medicine Rheumatology
DX: M06.4 Inflammatory polyarthropathy (principal); I10 Essential (primary) hypertension
CPT/HCPCS: 36415; 80053; 85025

== ENCOUNTER → 2021-02-16 12:40 | Outpatient (CLI) | payer OTHER, SELFPAY ==
[2021-02-16 15:30] LABS: Absolute Lymphocyte Count 0.95 X10^3/uL (0.83-4.51); Absolute Neutrophil Count 3.8 X10^3/uL (2.0-7.7); Basophil# 0.03 X10^3/uL; Basophil% 0.6 % (0-1); Eosinophils% 3.7 % (0-5); Hematocrit 39.9 % (37-47); Hemoglobin 13.3 g/dL (12.0-15.0); Lymphocyte # 0.95 X10^3/ul (0.83-4.51); Lymphocyte % 17.4 % (19-41); Mean Corp Hgb Conc 33.3 g/dL (32-36); Mean Corpuscular Hgb 30.2 pg (27.0-32.0); Mean Corpuscular Volume 90.7 fL (81-99); Mean Platelet Vol. 10.1 fl (6.2-12.0); Monocyte# 0.42 X10^3/uL; Monocyte% 7.7 % (0-10); NRBC Flagged by Analyzer 0 % (0-5); Neutrophil # 3.84 X10^3/uL (2.7-7.7); Neutrophil % 70.4 % (47-70); Platelet Count 261 K/mm3 (150-450); RBC Distribution Width CV 11.8 % (11.6-14.6); RBC Distribution Width SD 39.4 fl (35.1-43.9); White Blood Count 5.5 K/mm3 (4.4-11.0)
[2021-02-16 15:37] LABS: ALB/GLOB Ratio 0.9 RATIO (0.9-2.4); AST(SGOT) 35 U/L (15-37); Alanine Aminotransfer ALT/SGPT 31 U/L (13-56); Albumin, Serum 3.4 g/dL (3.2-5.0); Alkaline Phosphatase 100 U/L (45-117); Anion Gap 5 (5-15); BUN 14 mg/dL (7-18); BUN/Creat Ratio 22.3 RATIO (10-20); Calcium,Total 9.3 mg/dL (8.5-10.1); Chloride 105 mmol/L (98-107); Creatinine, Serum 0.63 mg/dL (0.55-1.02); EST Glomerular Filtration Rate 103 mL/min (>60); Est Glom Filt Rate - Afr Amer 124 mL/min (>60); Globulin 3.6 g/dL (2.2-4.2); Glucose 85 mg/dL (74-106); Potassium 3.8 mmol/L (3.5-5.1); Sodium Level 140 mmol/L (136-145)
== END ==
PROVIDERS: PCP Family Medicine; Referring Provider Internal Medicine Rheumatology; Visit Provider Internal Medicine Rheumatology
DX: M06.4 Inflammatory polyarthropathy (principal); I10 Essential (primary) hypertension
CPT/HCPCS: 36415; 80053; 85025

== ENCOUNTER 2021-05-27 17:11 | Outpatient (CLI) | payer OTHER, SELFPAY | END 2021-05-27 23:59 | disposition short-term general hospital (02) | PROVIDERS: PCP Family Medicine; Referring Provider Family Medicine; Visit Provider Family Medicine | DX: J06.9 Acute upper respiratory infection, unspecified (principal) | CPT/HCPCS: 87635; U0003; U0005 ==

== ENCOUNTER 2021-08-13 13:04 | Outpatient (CLI) | payer OTHER, SELFPAY ==
--- NOTE | 2021-08-13 13:08 | RAD_ITS ---
STUDY: X-RAY CHEST REASON FOR EXAM: Female, 61 years old. CHEST PAIN CHEST PAIN TECHNIQUE: XR Chest 2 Views COMPARISON: Prior comparison studies are not available for review at this time. FINDINGS: There is no demonstrated pleural abnormality. Normal size heart. Normal mediastinum and tara. Normal visualized pulmonary arteries. There is atherosclerotic calcification of the aortic arch with tortuosity. Normal visualized thoracic spine. Normal visualized ribs, clavicles, and shoulders. There is no demonstrated abnormality of the visualized soft tissue structures of the upper abdomen. RAD/Chest PA and Lateral IMPRESSION: There are no acute findings. Electronically Signed: Davi Ziegler MD at 17:32 EDT ,
[2021-08-13 15:08] LABS: Hematocrit 40.3 % (37-47); Hemoglobin 13.3 g/dL (12.0-15.0); Mean Corpuscular Hgb 30.6 pg (27.0-32.0); Mean Corpuscular Volume 92.9 fL (81-99); Mean Platelet Vol. 10.2 fl (6.2-12.0); Platelet Count 287 K/mm3 (150-450); RBC Distribution Width SD 41.4 fl (35.1-43.9); Red Blood Count 4.34 M/mm3 (4.2-5.4); White Blood Count 6.1 K/mm3 (4.4-11.0)
[2021-08-13 15:22] LABS: D-Dimer Quantitative (DVT/PE) 0.59 FEU/ug/m (0.27-0.49)
[2021-08-13 15:27] LABS: Anion Gap 4 (5-15); BUN 15 mg/dL (7-18); BUN/Creat Ratio 20.5 RATIO (10-20); Calcium,Total 8.9 mg/dL (8.5-10.1); Chloride 105 mmol/L (98-107); Creatinine, Serum 0.73 mg/dL (0.55-1.02); EST Glomerular Filtration Rate 86 mL/min (>60); Est Glom Filt Rate - Afr Amer 104 mL/min (>60); Glucose 116 mg/dL (74-106); Potassium 3.9 mmol/L (3.5-5.1); Sodium Level 141 mmol/L (136-145)
== END 2021-08-13 23:59 | disposition home or self-care (01) ==
LOC: MTLAB 13:06
PROVIDERS: PCP Family Medicine; Referring Provider Family Medicine; Visit Provider Family Medicine
DX: R07.9 Chest pain, unspecified (principal)
CPT/HCPCS: 36415; 71046; 80048; 85027; 85379

== ENCOUNTER 2021-08-13 17:04 | Outpatient (CLI) | payer OTHER, SELFPAY ==
--- NOTE | 2021-08-13 17:12 | CT_ITS ---
EXAM: CT ANGIOGRAPHY CHEST WITHOUT AND WITH INTRAVENOUS CONTRAST CLINICAL INDICATION: Chest pain, Elevated D-dimer TECHNIQUE: Helically acquired angiography images were obtained of the chest without and with intravenous contrast. This CT exam was performed using one or more of the following dose reduction techniques: automated exposure control, adjustment of the mA and/or kV according to patient size, and/or use of iterative reconstruction technique. This report was created using [employer] report generation technology. MIP reconstructed images were created and reviewed. CONTRAST: IV 100mL Isovue-370 COMPARISON: None. FINDINGS: PULMONARY ARTERIES: No demonstrated pulmonary embolism or arterial dissection. AORTA: There is atherosclerotic calcification of the aortic arch with tortuosity and elongation of the aortic arch and descending thoracic aorta. Normal in caliber. No evidence of dissection. GREAT VESSELS OF AORTIC ARCH: Unremarkable. Normal in caliber. No evidence of dissection. LUNGS AND PLEURAL SPACES: Unremarkable. No mass. No consolidation or edema. No pleural effusion or thickening. No pneumothorax. HEART: There are calcifications of the coronary arteries. No pericardial effusion. No signs of right heart strain, ratio of right ventricle to left ventricle measures less than 1. MEDIASTINUM: Unremarkable. No mediastinal or hilar adenopathy. Esophagus is unremarkable. No hiatal hernia. THYROID: Unremarkable. No thyroid lesions. BONES/JOINTS: There are degenerative changes of the shoulders. There are multi-level degenerative changes of the thoracic spine. No suspicious lytic or blastic abnormality. CT/CTA Chest W/WO Contrast IMPRESSION: No demonstrated pulmonary embolism or arterial dissection. Electronically Signed: Davi Ziegler MD at 17:52 EDT ,
== END 2021-08-13 23:59 | disposition home or self-care (01) ==
PROVIDERS: PCP Family Medicine; Visit Provider Family Medicine
DX: R07.9 Chest pain, unspecified (principal)
CPT/HCPCS: 71275; Q9967

== ENCOUNTER 2021-08-19 13:53 | Outpatient (CLI) | payer OTHER, SELFPAY ==
[2021-08-19 14:58] LABS: Absolute Lymphocyte Count 1.42 X10^3/uL (0.83-4.51); Absolute Neutrophil Count 3.2 X10^3/uL (2.0-7.7); Basophil# 0.04 X10^3/uL; Basophil% 0.7 % (0-1); Eosinophil# 0.29 X10^3/uL; Eosinophils% 5.4 % (0-5); Hematocrit 38.7 % (37-47); Hemoglobin 12.9 g/dL (12.0-15.0); Lymphocyte # 1.42 X10^3/ul (0.83-4.51); Lymphocyte % 26.4 % (19-41); Mean Corp Hgb Conc 33.3 g/dL (32-36); Mean Corpuscular Hgb 30.7 pg (27.0-32.0); Mean Corpuscular Volume 92.1 fL (81-99); Mean Platelet Vol. 9.9 fl (6.2-12.0); Monocyte# 0.41 X10^3/uL; Monocyte% 7.6 % (0-10); NRBC Flagged by Analyzer 0 % (0-5); Neutrophil % 59.7 % (47-70); Platelet Count 280 K/mm3 (150-450); RBC Distribution Width SD 40.6 fl (35.1-43.9); White Blood Count 5.4 K/mm3 (4.4-11.0)
[2021-08-19 15:28] LABS: AST(SGOT) 36 U/L (15-37); Alanine Aminotransfer ALT/SGPT 28 U/L (13-56); Albumin, Serum 3.3 g/dL (3.2-5.0); Alkaline Phosphatase 101 U/L (45-117); Anion Gap 2 (5-15); BUN 15 mg/dL (7-18); BUN/Creat Ratio 16.3 RATIO (10-20); Calcium,Total 9.2 mg/dL (8.5-10.1); Chloride 106 mmol/L (98-107); Creatinine, Serum 0.92 mg/dL (0.55-1.02); EST Glomerular Filtration Rate 66 mL/min (>60); Est Glom Filt Rate - Afr Amer 80 mL/min (>60); Globulin 3.4 g/dL (2.2-4.2); Glucose 91 mg/dL (74-106); Potassium 3.8 mmol/L (3.5-5.1); Protein, Total 6.7 g/dL (6.4-8.2); Sodium Level 141 mmol/L (136-145)
== END 2021-08-19 23:59 | disposition home or self-care (01) ==
LOC: MTLAB 13:54
PROVIDERS: PCP Family Medicine; Referring Provider Internal Medicine Rheumatology; Visit Provider Internal Medicine Rheumatology
DX: M06.4 Inflammatory polyarthropathy (principal); I10 Essential (primary) hypertension
CPT/HCPCS: 36415; 80053; 85025

== ENCOUNTER → 2021-10-13 | Outpatient (CLI) | payer OTHER, SELFPAY ==
--- NOTE | 2021-10-13 14:10 | RAD_ITS ---
STUDY: X-RAY - RIGHT HAND REASON FOR EXAM: Female, 61 years old. SPRAIN OF FINGER TECHNIQUE: 3 view(s) of the hand. COMPARISON: None. FINDINGS: Normal radiocarpal articulation. Normal distal radioulnar joint. Normal visualized carpal bones. Normal carpal articulations Normal carpometacarpal articulation of the thumb. Normal second through fifth carpometacarpal joints. Normal metacarpi. Normal metacarpophalangeal joint of the thumb. Normal interphalangeal joint of the thumb. Normal proximal and distal phalanges of the thumb. Normal metacarpophalangeal joints of the second through fifth fingers. Obliquely oriented fracture of the base of the fourth middle phalanx along the dorsal surface seen only on the lateral view. Normal phalanges of the second through fifth fingers. Mild soft tissue swelling of the fourth digit. RAD/Hand Min 3 Views IMPRESSION: Hyperflexion avulsion fracture at the dorsal base of the fourth middle phalanx. Electronically Signed: Tom Regan MD ([place]) at 16:00 EDT ,
== END | disposition home or self-care (01) ==
PROVIDERS: PCP Family Medicine; Referring Provider Family Medicine; Visit Provider Family Medicine
DX: S63.619A Unspecified sprain of unspecified finger, initial encounter (principal)
CPT/HCPCS: 73130

== ENCOUNTER → 2021-10-26 | Outpatient (CLI) | payer OTHER, SELFPAY ==
[2021-10-26 17:43] LABS: Absolute Neutrophil Count 4.4 X10^3/uL (2.0-7.7); Basophil# 0.04 X10^3/uL; Basophil% 0.6 % (0-1); Eosinophil# 0.28 X10^3/uL; Eosinophils% 4.2 % (0-5); Hematocrit 37.8 % (37-47); Hemoglobin 12.7 g/dL (12.0-15.0); Mean Corp Hgb Conc 33.6 g/dL (32-36); Mean Corpuscular Volume 92.2 fL (81-99); Mean Platelet Vol. 9.9 fl (6.2-12.0); Monocyte% 7.5 % (0-10); NRBC Flagged by Analyzer 0 % (0-5); Neutrophil # 4.42 X10^3/uL (2.7-7.7); Neutrophil % 66.4 % (47-70); Platelet Count 288 K/mm3 (150-450); RBC Distribution Width CV 12.1 % (11.6-14.6); RBC Distribution Width SD 40.9 fl (35.1-43.9); White Blood Count 6.7 K/mm3 (4.4-11.0)
[2021-10-26 18:05] LABS: ALB/GLOB Ratio 0.9 RATIO (0.9-2.4); AST(SGOT) 36 U/L (15-37); Alanine Aminotransfer ALT/SGPT 35 U/L (13-56); Albumin, Serum 3.2 g/dL (3.2-5.0); Alkaline Phosphatase 100 U/L (45-117); Anion Gap 4 (5-15); BUN 14 mg/dL (7-18); BUN/Creat Ratio 20.4 RATIO (10-20); Calcium,Total 9.1 mg/dL (8.5-10.1); Chloride 105 mmol/L (98-107); Creatinine, Serum 0.68 mg/dL (0.55-1.02); EST Glomerular Filtration Rate 93 mL/min (>60); Est Glom Filt Rate - Afr Amer 112 mL/min (>60); Globulin 3.4 g/dL (2.2-4.2); Glucose 97 mg/dL (74-106); Potassium 3.9 mmol/L (3.5-5.1); Protein, Total 6.6 g/dL (6.4-8.2); Sodium Level 140 mmol/L (136-145)
== END | disposition home or self-care (01) ==
LOC: MTLAB 15:04
PROVIDERS: PCP Family Medicine; Referring Provider Internal Medicine Rheumatology; Visit Provider Internal Medicine Rheumatology
DX: M06.4 Inflammatory polyarthropathy (principal); I10 Essential (primary) hypertension; E78.5 Hyperlipidemia, unspecified; Z79.899 Other long term (current) drug therapy
CPT/HCPCS: 36415; 80053; 85025

== ENCOUNTER → 2021-12-28 | Outpatient (CLI) | payer OTHER, SELFPAY ==
[2021-12-28 17:58] LABS: Absolute Lymphocyte Count 1.07 X10^3/uL (0.83-4.51); Basophil# 0.04 X10^3/uL; Basophil% 0.8 % (0-1); Eosinophil# 0.28 X10^3/uL; Eosinophils% 5.7 % (0-5); Hemoglobin 12.7 g/dL (12.0-15.0); Lymphocyte # 1.07 X10^3/ul (0.83-4.51); Lymphocyte % 21.9 % (19-41); Mean Corp Hgb Conc 33.4 g/dL (32-36); Mean Corpuscular Hgb 31.4 pg (27.0-32.0); Mean Corpuscular Volume 93.8 fL (81-99); Mean Platelet Vol. 9.7 fl (6.2-12.0); Monocyte% 10.2 % (0-10); NRBC Flagged by Analyzer 0 % (0-5); Neutrophil # 2.98 X10^3/uL (2.7-7.7); Neutrophil % 61.2 % (47-70); Platelet Count 292 K/mm3 (150-450); RBC Distribution Width CV 12.4 % (11.6-14.6); RBC Distribution Width SD 42.8 fl (35.1-43.9); Red Blood Count 4.05 M/mm3 (4.2-5.4); White Blood Count 4.9 K/mm3 (4.4-11.0)
[2021-12-28 20:37] LABS: ALB/GLOB Ratio 0.9 RATIO (0.9-2.4); AST(SGOT) 35 U/L (15-37); Alanine Aminotransfer ALT/SGPT 33 U/L (13-56); Albumin, Serum 3.2 g/dL (3.2-5.0); Alkaline Phosphatase 107 U/L (45-117); Anion Gap 9 (5-15); BUN 11 mg/dL (7-18); BUN/Creat Ratio 17.5 RATIO (10-20); Calcium,Total 9.1 mg/dL (8.5-10.1); Chloride 105 mmol/L (98-107); Creatinine, Serum 0.63 mg/dL (0.55-1.02); EST Glomerular Filtration Rate 103 mL/min (>60); Est Glom Filt Rate - Afr Amer 124 mL/min (>60); Globulin 3.5 g/dL (2.2-4.2); Glucose 90 mg/dL (74-106); Potassium 3.7 mmol/L (3.5-5.1); Protein, Total 6.7 g/dL (6.4-8.2); Sodium Level 141 mmol/L (136-145)
== END | disposition home or self-care (01) ==
PROVIDERS: PCP Family Medicine; Referring Provider Internal Medicine Rheumatology; Visit Provider Internal Medicine Rheumatology
DX: M06.4 Inflammatory polyarthropathy (principal); I10 Essential (primary) hypertension; E78.5 Hyperlipidemia, unspecified; Z79.899 Other long term (current) drug therapy
CPT/HCPCS: 36415; 80053; 85025

== ENCOUNTER → 2022-03-08 | Outpatient (CLI) | payer OTHER, SELFPAY ==
[2022-03-08 10:10] LABS: Absolute Lymphocyte Count 1.24 X10^3/uL (0.83-4.51); Absolute Neutrophil Count 2.7 X10^3/uL (2.0-7.7); Basophil# 0.04 X10^3/uL; Basophil% 0.9 % (0-1); Eosinophil# 0.21 X10^3/uL; Eosinophils% 4.5 % (0-5); Hematocrit 38.5 % (37-47); Hemoglobin 13.2 g/dL (12.0-15.0); Lymphocyte # 1.24 X10^3/ul (0.83-4.51); Lymphocyte % 26.4 % (19-41); Mean Corp Hgb Conc 34.3 g/dL (32-36); Mean Corpuscular Hgb 31.7 pg (27.0-32.0); Mean Corpuscular Volume 92.3 fL (81-99); Mean Platelet Vol. 10.3 fl (6.2-12.0); Monocyte# 0.45 X10^3/uL; Monocyte% 9.6 % (0-10); NRBC Flagged by Analyzer 0 % (0-5); Neutrophil # 2.74 X10^3/uL (2.7-7.7); Neutrophil % 58.2 % (47-70); POSITIVE COUNT YES; Platelet Count 247 K/mm3 (150-450); RBC Distribution Width CV 12.3 % (11.6-14.6); RBC Distribution Width SD 40.8 fl (35.1-43.9); Red Blood Count 4.17 M/mm3 (4.2-5.4); White Blood Count 4.7 K/mm3 (4.4-11.0)
[2022-03-08 11:26] LABS: AST(SGOT) 37 U/L (15-37); Alanine Aminotransfer ALT/SGPT 30 U/L (13-56); Albumin, Serum 3.3 g/dL (3.2-5.0); Alkaline Phosphatase 101 U/L (45-117); Anion Gap 2 (5-15); BUN 13 mg/dL (7-18); BUN/Creat Ratio 21.5 RATIO (10-20); Calcium,Total 9.2 mg/dL (8.5-10.1); Chloride 107 mmol/L (98-107); EST Glomerular Filtration Rate 107 mL/min (>60); Est Glom Filt Rate - Afr Amer 129 mL/min (>60); Globulin 3.4 g/dL (2.2-4.2); Glucose 73 mg/dL (74-106); Potassium 4.2 mmol/L (3.5-5.1); Protein, Total 6.7 g/dL (6.4-8.2); Sodium Level 141 mmol/L (136-145)
== END | disposition home or self-care (01) ==
LOC: MTLAB 09:05
PROVIDERS: PCP Family Medicine; Referring Provider Internal Medicine Rheumatology; Visit Provider Internal Medicine Rheumatology
DX: M06.4 Inflammatory polyarthropathy (principal); I10 Essential (primary) hypertension; E78.5 Hyperlipidemia, unspecified; Z79.899 Other long term (current) drug therapy
CPT/HCPCS: 36415; 80053; 85025

== ENCOUNTER 2022-03-11 13:00 | Outpatient (RCR) | payer OTHER, SELFPAY ==
--- NOTE | 2021-12-11 06:57 | HP.OTEVAL ---
Patient's Visit Information SERAFIN KHAN is a 61 year old F, referred to Occupational Therapy by Tito Childers PA-C, with a diagnosis of R RF middle phalanx non disp fx contusion right hand. Date of Evaluation: 12/10/21 Occupational Therapist: Marjorie Lees, LINUS/Julio César, CHT - Subjective This 61 year old female was seen for OT eval with dx right non displaced fx of MF and contusion of right hand-. pt states fall happened September 24. pt states her hand was swollen- she did see a dr. nash two weeks later- pt states she went to ortho about 5 weeks later- pt states she wasn't sure what she could do while waiting to see ortho . pt is right handed. 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 pt states she is seeing Dr. Timmons on Tuesday to discuses her options. until then she would like to know what she can do to increase her ROM and and strength to return to her PLOF. 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 Pt will demo an increase in lateral and tripod pinch by 2# to increase pts independent with opening baggies, containers at PLOF by D/C. Goal:: pt will demo right RF PIP ext to -5* or less demo increase ability to straighten her fingers to put her hand in her pocket by d.c. pt will demo right RF PIP flex to 95* or greater to increase composite fist to hold small objects by d/c Goal:: pt will report no pain greater than 2/10 with use of right hand with ADLs and IADLs by d.c - Rehabilitation General Assessment: pt arrives to OT 11 weeks after she injured her finger- right RF demo with limited PIP flex and extension- weakness and pain have decreased pts IND with ADls and IADLs- pt would benefit from skilled OT services 1-2 x week for 8 weeks to increase pts ROM and return pt to her PLOF. Today therapist ed. pt on AROM, PIP blocking flex/ext to gain ROM along with PROM stretch- pt demo understanding and agree to POC. Rehabilitation Potential: Good - Anticipated Interventions A/AAROM/PROM, Strengthening, Triggerpoint Release, Modalities, Orthoses, Joint Protection/Energy Conservation, Fine Motor Coord/Rick, Education re assistive Equipment, Education re Diagnosis - Visit Plan Frequency: 2-3x /Week Duration: 4 Weeks TEXT: Thank you for the opportunity to evaluate your patient. For Medicare and Medicare HMO plans, please review the plan of care and approve it. It will need to be FAXED BACK to us at [phone] for Medicare purposes. Please let me know if there are questions or concerns regarding this plan of care. Physician Signature: Date:
--- NOTE | 2022-05-12 09:56 | HP.OT.NRP ---
SERAFIN KHAN was seen in my office for initial evaluation on 12/10/21. The following Plan of Care was established for this patient: Initial Frequency: 2-3x /Week Initial Duration: 4 Weeks Plan: pt to use LMB as much as possible. advised to flex in to fist about 10x prior to removing LMB Anticipated Interventions: A/AAROM/PROM, Strengthening, Triggerpoint Release, Modalities, Orthoses, Joint Protection/Energy Conservation, Fine Motor Coord/Rick, Education re assistive Equipment, Education re Diagnosis This patient was last seen in our office 03/11/22. Pertinent comments regarding their Occupational therapy will appear below: pt to use LMB as much as possible advised to flex in to fist about 10x prior to removing LMB to decrease joint soreness. pt continues to struggle with full ext. at -25* flexion at 95* pt ed. on HEP and that recovery from injury does take 6-9 months. pt demo understanding of HEP. at this time pt has not scheduled further apts and due to time lapse in services pt d/c. At this point I will be discontinuing this patient from occupational therapy. I would be happy to see this patient again in the future if found appropriate by the physician. Thank you! Marjorie Lees, OTR/L, CHT
== END 2022-03-11 19:00 | disposition home or self-care (01) ==
LOC: OT 13:00
PROVIDERS: PCP Family Medicine; Referring Provider Physician Assistant; Visit Provider Physician Assistant
DX: M24.541 Contracture, right hand (principal); S62.654D Nondisplaced fracture of middle phalanx of right ring finger, subsequent encounter for fracture with routine healing; S60.221D Contusion of right hand, subsequent encounter
CPT/HCPCS: 97035; 97110; 97140; 97166; 97530

== ENCOUNTER → 2022-06-10 | Outpatient (CLI) | payer OTHER, SELFPAY ==
[2022-06-10 12:15] LABS: Absolute Lymphocyte Count 1.12 X10^3/uL (0.83-4.51); Absolute Neutrophil Count 2.7 X10^3/uL (2.0-7.7); Basophil# 0.03 X10^3/uL; Basophil% 0.7 % (0-1); Eosinophil# 0.17 X10^3/uL; Eosinophils% 3.9 % (0-5); Hematocrit 39.8 % (37-47); Hemoglobin 13.4 g/dL (12.0-15.0); Lymphocyte # 1.12 X10^3/ul (0.83-4.51); Lymphocyte % 25.5 % (19-41); Mean Corp Hgb Conc 33.7 g/dL (32-36); Mean Corpuscular Hgb 31.9 pg (27.0-32.0); Mean Corpuscular Volume 94.8 fL (81-99); Mean Platelet Vol. 9.6 fl (6.2-12.0); Monocyte# 0.39 X10^3/uL; Monocyte% 8.9 % (0-10); NRBC Flagged by Analyzer 0 % (0-5); Neutrophil # 2.65 X10^3/uL (2.7-7.7); Neutrophil % 60.3 % (47-70); Platelet Count 268 K/mm3 (150-450); RBC Distribution Width CV 12.1 % (11.6-14.6); RBC Distribution Width SD 41.8 fl (35.1-43.9); White Blood Count 4.4 K/mm3 (4.4-11.0)
[2022-06-10 12:48] LABS: ALB/GLOB Ratio 0.9 RATIO (0.9-2.4); AST(SGOT) 30 U/L (15-37); Alanine Aminotransfer ALT/SGPT 34 U/L (13-56); Albumin, Serum 3.1 g/dL (3.2-5.0); Alkaline Phosphatase 97 U/L (45-117); Anion Gap 6 (5-15); BUN 17 mg/dL (7-18); BUN/Creat Ratio 26.2 RATIO (10-20); Chloride 104 mmol/L (98-107); Creatinine, Serum 0.65 mg/dL (0.55-1.02); EST Glomerular Filtration Rate 99 mL/min (>60); Est Glom Filt Rate - Afr Amer 120 mL/min (>60); Globulin 3.5 g/dL (2.2-4.2); Glucose 81 mg/dL (74-106); Potassium 3.8 mmol/L (3.5-5.1); Protein, Total 6.6 g/dL (6.4-8.2); Sodium Level 140 mmol/L (136-145)
== END | disposition home or self-care (01) ==
LOC: MTLAB 09:49
PROVIDERS: PCP Family Medicine; Referring Provider Internal Medicine Rheumatology; Visit Provider Internal Medicine Rheumatology
DX: M06.4 Inflammatory polyarthropathy (principal); I10 Essential (primary) hypertension; E78.5 Hyperlipidemia, unspecified; Z79.899 Other long term (current) drug therapy
CPT/HCPCS: 36415; 80053; 85025

== ENCOUNTER → 2022-09-13 | Outpatient (CLI) | payer OTHER, SELFPAY ==
[2022-09-13 10:26] LABS: Absolute Lymphocyte Count 0.96 X10^3/uL (0.83-4.51); Absolute Neutrophil Count 3.3 X10^3/uL (2.0-7.7); Basophil# 0.04 X10^3/uL; Basophil% 0.8 % (0-1); Eosinophil# 0.22 X10^3/uL; Eosinophils% 4.4 % (0-5); Hematocrit 40.1 % (37-47); Hemoglobin 13.3 g/dL (12.0-15.0); Lymphocyte # 0.96 X10^3/ul (0.83-4.51); Lymphocyte % 19.1 % (19-41); Mean Corp Hgb Conc 33.2 g/dL (32-36); Mean Corpuscular Hgb 31.1 pg (27.0-32.0); Mean Corpuscular Volume 93.9 fL (81-99); Mean Platelet Vol. 9.7 fl (6.2-12.0); Monocyte% 9.9 % (0-10); NRBC Flagged by Analyzer 0 % (0-5); Neutrophil # 3.29 X10^3/uL (2.7-7.7); Neutrophil % 65.4 % (47-70); Platelet Count 256 K/mm3 (150-450); RBC Distribution Width CV 12.2 % (11.6-14.6); RBC Distribution Width SD 41.7 fl (35.1-43.9); Red Blood Count 4.27 M/mm3 (4.2-5.4)
[2022-09-13 10:40] LABS: AST(SGOT) 29 U/L (15-37); Alanine Aminotransfer ALT/SGPT 31 U/L (13-56); Albumin, Serum 3.2 g/dL (3.2-5.0); Alkaline Phosphatase 100 U/L (45-117); Anion Gap 5 (5-15); BUN 18 mg/dL (7-18); BUN/Creat Ratio 30.5 RATIO (10-20); Chloride 105 mmol/L (98-107); Creatinine, Serum 0.59 mg/dL (0.55-1.02); EST Glomerular Filtration Rate 110 mL/min (>60); Est Glom Filt Rate - Afr Amer 133 mL/min (>60); Globulin 3.3 g/dL (2.2-4.2); Glucose 88 mg/dL (74-106); Protein, Total 6.5 g/dL (6.4-8.2); Sodium Level 141 mmol/L (136-145)
== END | disposition home or self-care (01) ==
LOC: MTLAB 08:28
PROVIDERS: PCP Family Medicine; Referring Provider Internal Medicine Rheumatology; Visit Provider Internal Medicine Rheumatology
DX: M06.4 Inflammatory polyarthropathy (principal); I10 Essential (primary) hypertension; E78.5 Hyperlipidemia, unspecified; Z79.899 Other long term (current) drug therapy
CPT/HCPCS: 36415; 80053; 85025

== ENCOUNTER → 2022-11-08 | Outpatient (CLI) | payer OTHER, SELFPAY ==
--- NOTE | 2022-11-08 16:43 | RAD_ITS ---
INDICATION: cough EXAMINATION/TECHNIQUE: X-RAY - XR Chest 2 Views COMPARISON: 08/13/2021 FINDINGS: LINES/DEVICES: None. LUNGS: No consolidation. No pneumothorax. MEDIASTINUM: Unremarkable. CARDIAC SILHOUETTE: Not enlarged. BONES AND SOFT TISSUES: Mild degenerative changes of the dorsal spine. RAD/Chest PA and Lateral IMPRESSION: No evidence of active intrathoracic disease. Electronically Signed: Shaina Guido MD at 0:26 EDT ,
[2022-11-08 18:03] LABS: Absolute Lymphocyte Count 1.17 X10^3/uL (0.83-4.51); Absolute Neutrophil Count 2.3 X10^3/uL (2.0-7.7); Basophil# 0.04 X10^3/uL; Eosinophil# 0.14 X10^3/uL; Eosinophils% 3.5 % (0-5); Hematocrit 39.3 % (37-47); Hemoglobin 13.4 g/dL (12.0-15.0); Lymphocyte # 1.17 X10^3/ul (0.83-4.51); Mean Corp Hgb Conc 34.1 g/dL (32-36); Mean Corpuscular Hgb 31.8 pg (27.0-32.0); Mean Corpuscular Volume 93.1 fL (81-99); Mean Platelet Vol. 9.5 fl (6.2-12.0); Monocyte# 0.38 X10^3/uL; Monocyte% 9.4 % (0-10); NRBC Flagged by Analyzer 0 % (0-5); Neutrophil # 2.29 X10^3/uL (2.7-7.7); Neutrophil % 56.9 % (47-70); Platelet Count 271 K/mm3 (150-450); RBC Distribution Width CV 12.3 % (11.6-14.6); RBC Distribution Width SD 41.8 fl (35.1-43.9); Red Blood Count 4.22 M/mm3 (4.2-5.4)
== END | disposition home or self-care (01) ==
LOC: MTLAB 16:42
PROVIDERS: PCP Family Medicine; Referring Provider Family Medicine; Visit Provider Family Medicine
DX: R05.9 Cough, unspecified (principal)
CPT/HCPCS: 36415; 71046; 85025

== ENCOUNTER → 2022-11-08 | Outpatient (CLI) | payer OTHER, SELFPAY | END | disposition home or self-care (01) | LOC: RAD 17:37 | PROVIDERS: PCP Family Medicine; Referring Provider Family Medicine; Visit Provider Family Medicine | DX: Z00.00 Encounter for general adult medical examination without abnormal findings (principal) ==

== ENCOUNTER → 2022-11-10 | Outpatient (CLI) | payer OTHER, SELFPAY ==
[2022-11-10 11:32] LABS: Vitamin D,25 Hydroxy 39.5 ng/mL
[2022-11-10 11:34] LABS: ALB/GLOB Ratio 0.9 RATIO (0.9-2.4); AST(SGOT) 28 U/L (15-37); Alanine Aminotransfer ALT/SGPT 25 U/L (13-56); Alkaline Phosphatase 106 U/L (45-117); Anion Gap 4 (5-15); BUN 16 mg/dL (7-18); BUN/Creat Ratio 29.8 RATIO (10-20); Calcium,Total 8.8 mg/dL (8.5-10.1); Chloride 107 mmol/L (98-107); Creatinine, Serum 0.54 mg/dL (0.55-1.02); EST Glomerular Filtration Rate 123 mL/min (>60); Est Glom Filt Rate - Afr Amer 148 mL/min (>60); Globulin 3.4 g/dL (2.2-4.2); Glucose 86 mg/dL (74-106); Potassium 3.7 mmol/L (3.5-5.1); Protein, Total 6.4 g/dL (6.4-8.2); Sodium Level 139 mmol/L (136-145)
== END | disposition home or self-care (01) ==
LOC: MTLAB 09:17
PROVIDERS: PCP Family Medicine; Referring Provider Family Medicine; Visit Provider Family Medicine
DX: R53.83 Other fatigue (principal)
CPT/HCPCS: 36415; 80053; 82306; 84443

== ENCOUNTER → 2022-11-29 | Outpatient (CLI) | payer OTHER, SELFPAY ==
[2022-11-29 18:07] LABS: Absolute Lymphocyte Count 1.14 X10^3/uL (0.83-4.51); Absolute Neutrophil Count 2.7 X10^3/uL (2.0-7.7); Basophil# 0.03 X10^3/uL; Basophil% 0.7 % (0-1); Eosinophil# 0.19 X10^3/uL; Eosinophils% 4.2 % (0-5); Hematocrit 35.6 % (37-47); Hemoglobin 12.1 g/dL (12.0-15.0); Lymphocyte # 1.14 X10^3/ul (0.83-4.51); Lymphocyte % 24.9 % (19-41); Mean Corpuscular Hgb 31.4 pg (27.0-32.0); Mean Corpuscular Volume 92.5 fL (81-99); Mean Platelet Vol. 9.7 fl (6.2-12.0); Monocyte# 0.53 X10^3/uL; Monocyte% 11.6 % (0-10); NRBC Flagged by Analyzer 0 % (0-5); Neutrophil # 2.67 X10^3/uL (2.7-7.7); Neutrophil % 58.4 % (47-70); Platelet Count 255 K/mm3 (150-450); RBC Distribution Width CV 12.6 % (11.6-14.6); RBC Distribution Width SD 41.6 fl (35.1-43.9); Red Blood Count 3.85 M/mm3 (4.2-5.4); White Blood Count 4.6 K/mm3 (4.4-11.0)
[2022-11-29 18:08] LABS: ALB/GLOB Ratio 0.9 RATIO (0.9-2.4); AST(SGOT) 35 U/L (15-37); Alanine Aminotransfer ALT/SGPT 33 U/L (13-56); Alkaline Phosphatase 105 U/L (45-117); Anion Gap 5 (5-15); BUN 16 mg/dL (7-18); BUN/Creat Ratio 22.8 RATIO (10-20); Calcium,Total 8.3 mg/dL (8.5-10.1); Chloride 108 mmol/L (98-107); EST Glomerular Filtration Rate 90 mL/min (>60); Est Glom Filt Rate - Afr Amer 109 mL/min (>60); Globulin 3.2 g/dL (2.2-4.2); Glucose 94 mg/dL (74-106); Potassium 3.9 mmol/L (3.5-5.1); Protein, Total 6.2 g/dL (6.4-8.2); Sodium Level 142 mmol/L (136-145)
== END | disposition home or self-care (01) ==
LOC: MTLAB 11-30 16:40
PROVIDERS: PCP Family Medicine; Referring Provider Internal Medicine Rheumatology; Visit Provider Internal Medicine Rheumatology
DX: M06.4 Inflammatory polyarthropathy (principal); I10 Essential (primary) hypertension; E78.2 Mixed hyperlipidemia; Z79.899 Other long term (current) drug therapy
CPT/HCPCS: 36415; 80053; 85025

== ENCOUNTER → 2023-02-15 | Outpatient (CLI) | payer OTHER, SELFPAY ==
[2023-02-15 12:11] LABS: Absolute Lymphocyte Count 0.96 X10^3/uL (0.83-4.51); Absolute Neutrophil Count 2.6 X10^3/uL (2.0-7.7); Basophil# 0.04 X10^3/uL; Basophil% 0.9 % (0-1); Hematocrit 39.5 % (37-47); Hemoglobin 13.3 g/dL (12.0-15.0); Lymphocyte # 0.96 X10^3/ul (0.83-4.51); Lymphocyte % 21.1 % (19-41); Mean Corp Hgb Conc 33.7 g/dL (32-36); Mean Corpuscular Hgb 31.2 pg (27.0-32.0); Mean Corpuscular Volume 92.7 fL (81-99); Mean Platelet Vol. 9.6 fl (6.2-12.0); Monocyte# 0.46 X10^3/uL; Monocyte% 10.1 % (0-10); NRBC Flagged by Analyzer 0 % (0-5); Neutrophil # 2.56 X10^3/uL (2.7-7.7); Neutrophil % 56.2 % (47-70); Platelet Count 289 K/mm3 (150-450); RBC Distribution Width CV 12.7 % (11.6-14.6); Red Blood Count 4.26 M/mm3 (4.2-5.4); White Blood Count 4.6 K/mm3 (4.4-11.0)
[2023-02-15 12:59] LABS: AST(SGOT) 33 U/L (15-37); Alanine Aminotransfer ALT/SGPT 37 U/L (13-56); Albumin, Serum 3.1 g/dL (3.2-5.0); Alkaline Phosphatase 101 U/L (45-117); Anion Gap 6 (5-15); BUN 13 mg/dL (7-18); BUN/Creat Ratio 21.2 RATIO (10-20); Bilirubin, Direct 0.13 mg/dL (0.00-0.30); Calcium,Total 8.6 mg/dL (8.5-10.1); Chloride 107 mmol/L (98-107); Cholesterol 164 mg/dL (200); Creatinine, Serum 0.61 mg/dL (0.55-1.02); EST Glomerular Filtration Rate 105 mL/min (>60); Est Glom Filt Rate - Afr Amer 127 mL/min (>60); Globulin 3.2 g/dL (2.2-4.2); Glucose 82 mg/dL (74-106); High Density Lipoprotein 87 mg/dL; Potassium 3.8 mmol/L (3.5-5.1); Protein, Total 6.3 g/dL (6.4-8.2); Sodium Level 140 mmol/L (136-145); Triglycerides 56 mg/dL; Very Low Density Lipoprotein 11 mg/dL (5-40)
== END | disposition home or self-care (01) ==
PROVIDERS: PCP Family Medicine; Referring Provider Nurse Practitioner Gerontology; Visit Provider Nurse Practitioner Gerontology
DX: E78.5 Hyperlipidemia, unspecified (principal); M06.4 Inflammatory polyarthropathy; I10 Essential (primary) hypertension; Z79.899 Other long term (current) drug therapy
CPT/HCPCS: 36415; 80053; 80061; 82248; 85025

== ENCOUNTER 2023-05-07 02:32 | Emergency (ER) | payer OTHER, SELFPAY ==
[2023-05-07 02:33] VITALS: PULSE 77; RESP 18; TEMP 36.1; O2SAT 100; BMI 35.0
--- NOTE | 2023-05-07 02:41 | EKG12_ITS ---
Test Reason : CP Blood Pressure : / mmHG Vent. Rate : 071 BPM Atrial Rate : 071 BPM P-R Int : 118 ms QRS Dur : 100 ms QT Int : 404 ms P-R-T Axes : 060 042 -27 degrees QTc Int : 439 ms Normal sinus rhythm Abnormal QRS-T angle, consider primary T wave abnormality Abnormal ECG Confirmed by SEBLE RIVERA, DEJAN ([id number]), health editor PATRICIO LOPEZ ([id number]) on 05/17/2023 8:51:18 AM Referred By: DARIA Confirmed By:DEJAN PRUETT MD
--- NOTE | 2023-05-07 02:49 | ED.VIS.CHEST ---
HPI History of Present Illness Chief Complaint: Chest Pain Informant: patient Onset/Context/Timing Onset: Hours (2) Activity at onset: sudden Timing: Continuous Quality: Positive for Sharp Location: Left Parasternal Worsened By: Nothing Relieved By: Nothing Associated Symptoms: Positive for Nausea; Negative for Vomiting, Diaphoresis, Dyspnea, Cough, Fever, Lightheadedness, Acid Reflux or Palpitations Narrative Narrative: Patient presents with chest pain that began approximately 2 hours prior to arrival. Patient states it began rather suddenly. Patient states the pain is sharp. Patient states the pain is over the left parasternal area. Patient states nothing makes it better nothing makes it worse. Patient admits to some nausea with the pain. Patient denies any vomiting or diaphoresis. Patient denies any shortness of breath or cough. Patient denies any lightheadedness or dizziness. 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 Chest pain, precordial Essential hypertension Head mass History of 2019 novel coronavirus disease (COVID-19) (08/2019) History of DVT (deep vein thrombosis) Hyperlipidemia Osteoarthritis Rheumatoid arthritis Home Medications hydroxychloroquine 200 mg tablet 200 mg PO BIDCM 03/21/14 [History Last Taken Unknown] aspirin 81 mg tablet,delayed release 81 mg PO QDAY 08/17/17 [History Last Taken Unknown] calcium-vitamin D3-vitamin K 500 mg-500 unit-40 mcg chewable tablet (Viactiv) 1 tab PO QDAY 08/17/17 [History Last Taken Unknown] folic acid 1 mg tablet 2 mg PO DAILY 01/21/22 [History Last Taken Unknown] methotrexate sodium 2.5 mg tablet 15 mg PO QWEEK 01/21/22 [History Last Taken Unknown] multivitamin 1 tab PO DAILY 01/21/22 [History Last Taken Unknown] lisinopril 20 mg tablet 20 mg PO DAILY #90 tabs 02/14/23 [Rx Last Taken Unknown] simvastatin 20 mg tablet 20 mg PO QHS #90 tabs 04/12/23 [Rx Last Taken Unknown] fluticasone propionate 50 mcg/actuation nasal spray,suspension 2 spray intranasal DAILY 05/07/23 [History Last Taken Unknown] Allergy/AdvReac Type Severity Reaction Status Date / Time No Known Allergies Allergy Verified 05/07/23 02:33 Family History (Reviewed 02/14/23 @ 13:56 by Lashawn Dahl NURSING INFORMATICS SPECIALIST, NURSING INFORMATICS SPECIALIST-C) Brother Congenital heart disease Father Hypertension Surgical History History of endometrial ablation History of left heart catheterization (03/22/14) History of local excision of skin lesion S/p bilateral blepharoplasty Social History Smoking Status: Never smoker alcohol intake: current alcohol intake frequency: holidays/special occasions only Alcohol type: wine details: occasional substance use type: does not use caffeine: No ROS ROS ED Constitutional Constitutional ED: Denies chills or fever(s) Eyes Eyes: Denies blurry vision or change in vision ENT ENT ED: Denies rhinorrhea or sore throat Cardiovascular Cardiovascular: Reports chest pain; Denies palpitations Respiratory/Chest Respiratory/Chest: Denies cough or dyspnea Gastrointestinal Gastrointestinal: Reports nausea; Denies vomiting Genitourinary Genitourinary ED: Denies dysuria or hematuria Musculoskeletal Musculoskeletal: Denies back pain or neck pain Integumentary Denies abscess or rash Neurologic Neurologic: Reports headache(s); Denies weakness Allergic/Immunologic Allergic/Immunologic ED: Denies mouth swelling or urticaria EXAM Physical Exam Const Vital Signs: 05/07/23 02:33 05/07/23 02:37 05/07/23 02:42 Temperature 97 F L Temperature Source Temporal Pulse Rate 77 Respiratory Rate 18 Respiratory Effort Normal Blood Pressure Blood Pressure Mean Pulse Ox 100 Oxygen Delivery Method Room Air 05/07/23 04:33 05/07/23 05:06 05/07/23 07:00 Temperature 97.8 F Temperature Source Temporal Pulse Rate 82 65 64 Respiratory Rate 18 14 Respiratory Effort Blood Pressure 131/73 H 139/64 H 132/78 H Blood Pressure Mean 92 89 96 Pulse Ox 99 98 Oxygen Delivery Method Room Air Room Air Positive well nourished and well developed General Appearance ED: well developed and NAD HEENT Reports moist mucous membranes Neck supple and no JVD Chest Wall Chest: tenderness costochondral junction (Left) 3rd rib, 4th rib and 5th rib Resp normal respiratory effort and clear to auscultation bilaterally Cardio regular rate and regular rhythm GI soft to palpation, non-tender and non-distended Extremity normal to inspection General Extremety ED: Negative for edema or tenderness General Extremity: Negative for edema Neuro oriented x3, CN's II-XII intact bilaterally and no sensory deficits noted Sensorium / Orientation: awake and alert Motor Exam: strength 5/5 throughout Psych mental status grossly normal Heart Score History: Slightly/Non-Suspicious ECG: Normal Age: >45 - <65 years Risk Factors: 1 or 2 Risk Factors Troponin: </= Normal Limit Score: 2 MDM MDM MDM Narrative Medical decision making narrative: Differential diagnosis includes cardiac dysrhythmia, cardiac ischemia, pulmonary embolism, pneumonia, pneumothorax, musculoskeletal pain, and anxiety. EKG will be obtained to assess for cardiac dysrhythmia and cardiac ischemia. Chest x-ray will be obtained to assess for pneumonia and pneumothorax. Basic metabolic profile will be obtained to assess for electrolyte abnormality and renal function. High-sensitivity troponin will be obtained to assess for cardiac ischemia. 2-hour repeat high-sensitivity troponin will be obtained to assess for ongoing cardiac ischemia. D-dimer will be obtained to assess for pulmonary embolism. Lab Data Attestation: I reviewed the patient's lab results. Lab results narrative: CBC was reviewed and was within normal limits. Basic metabolic profile was reviewed and was essentially within normal limits. Initial high-sensitivity troponin was reviewed and was normal at 8. D-dimer was reviewed and was elevated at 0.72. 2-hour repeat high-sensitivity troponin was reviewed and was normal at 9. Labs: Laboratory Results - last 24 hr 05/07/23 05/07/23 05/07/23 02:50 04:30 05:03 WBC 6.1 RBC 4.11 L Hgb 12.8 Hct 37.8 MCV 92.0 MCH 31.1 MCHC 33.9 RDW Std Deviation 41.2 RDW Coeff of Diana 12.5 Plt Count 259 MPV 9.2 Immature Gran % (Auto) 0.300 Neut % (Auto) 47.5 Lymph % (Auto) 30.2 Evans % (Auto) 15.0 H Eos % (Auto) 6.2 H Baso % (Auto) 0.8 Absolute Neuts (auto) 2.9 Absolute Lymphs (auto) 1.85 Nucleated RBC % 0 D-Dimer Quant (PE/DVT) 0.72 H* Sodium 143 Potassium 3.7 Chloride 110 H Carbon Dioxide 29.0 Anion Gap 4 L BUN 20 H Creatinine 0.70 Estim Creat Clear Calc 74.98 Est GFR (MDRD) Af Amer 108 Est GFR (MDRD) Non-Af 89 BUN/Creatinine Ratio 28.4 H Glucose 96 Calcium 8.6 Troponin I High Sens 8 9 Radiography Chest X-Ray - ED: 1 View, Read by ED Physician, Read by Radiologist and No Acute Disease CTA PE Study: No Evidence of PE and No Evidence of Dissection Diagnostic Testing: Clinical Impression(s) from Imaging Studies Chest X-Ray 05/07/23 02:55 IMPRESSION: No radiographic evidence of acute cardiopulmonary disease. Electronically Signed: Davi Gonzalez MD at 3:35 EST Reading Location ID and State: [facility] / [place] Tel , Service support , Chest CTA 05/07/23 05:44 IMPRESSION: 1. No pulmonary embolism or other acute abnormality identified. 2. Coronary artery calcifications. Electronically Signed: Davi Gonzalez MD at 6:36 EST Reading Location ID and State: [facility] / [place] Tel , Service support , Portable 1 view chest x-ray was obtained. On my independent interpretation, lung avina are clear. There is normal cardiac silhouette. Bony thorax is normal. There is no acute process noted. Radiologist also interpreted the x-ray and agrees. Because of the elevated D-dimer, CTA of the chest was obtained. There is no evidence of pulmonary embolism or other acute abnormality noted. There are coronary artery calcifications noted. This was interpreted by the radiologist and was also independently reviewed by myself. EKG Initial EKG: Attestation: I personally reviewed and interpreted this EKG as follows: Interpretation: Sinus Rhythm (71) and Non-Specific ST Changes Comments: EKG was obtained. On my independent interpretation, it showed a normal sinus rhythm with a rate of 71. MD interval, QRS interval, and QTc intervals were all normal. Loa was normal. There are no acute ST or T wave changes. Prior EKG tracings: available for review Prior: Unchanged (07/17/2020) Treatment and Re-Evaluation :: Patient was given aspirin here. Patient was advised of her findings. Patient has a HEART score of 2. Patient was advised that this is low risk for acute cardiac event. Patient was instructed to follow-up with her primary care physician in 5 to 7 days. Patient was instructed to return if worse in any way. Patient understood and was agreeable with the plan. All questions were answered. Discharge Plan Triage Chief Complaint: Chest Pain ED Provider: Jose Antonio Poole Dx/Rx/DC Orders Clinical Impression: Chest pain, Essential hypertension Instructions: ED Chest Pain, Uncertain Cause Prescriptions: No Action aspirin 81 mg tablet,delayed release (DR/EC) 81 mg PO QDAY calcium-vitamin D3-vitamin K [Viactiv] 500-500-40 mg-unit-mcg tablet,chewable 1 tab PO QDAY folic acid 1 mg tablet 2 mg PO DAILY methotrexate sodium 2.5 mg tablet 15 mg PO QWEEK multivitamin Tablet 1 tab PO DAILY lisinopril 20 mg tablet 20 mg PO DAILY Qty: 90 3RF hydroxychloroquine 200 MG tablet 200 mg PO BIDCM fluticasone propionate 50 mcg/actuation spray,suspension 2 spray INTRANASAL DAILY Patient Comments: instill 2 sprays into each nostril once daily simvastatin 20 mg tablet 20 mg PO QHS Qty: 90 4RF Primary Care Provider: Bryanna Anders Referrals: Bryanna Anders MD [Primary Care Provider] - 5-7 Days Disposition Disposition: Home, Self Care Discharge Date/Time: 05/07/23 07:41
--- NOTE | 2023-05-07 02:55 | RAD_ITS ---
EXAM: XR CHEST, 1 VIEW CLINICAL INDICATION: chest pain TECHNIQUE: Frontal view of the chest. COMPARISON: Two-view chest 11/08/2022 FINDINGS: LUNGS AND PLEURAL SPACES: Unremarkable. No consolidation or edema. No pneumothorax. No effusion. HEART: Unremarkable. Cardiac silhouette not enlarged. MEDIASTINUM: Central airways and mediastinal contour are unremarkable. BONES/JOINTS: Unremarkable. No acute fracture. SOFT TISSUES: Unremarkable. RAD/Chest 1 View (Portable) IMPRESSION: No radiographic evidence of acute cardiopulmonary disease. Electronically Signed: Davi Gonzalez MD at 3:35 EST ,
[2023-05-07 02:57] LABS: Absolute Lymphocyte Count 1.85 X10^3/uL (0.83-4.51); Absolute Neutrophil Count 2.9 X10^3/uL (2.0-7.7); Basophil# 0.05 X10^3/uL; Basophil% 0.8 % (0-1); Eosinophil# 0.38 X10^3/uL; Eosinophils% 6.2 % (0-5); Hematocrit 37.8 % (37-47); Hemoglobin 12.8 g/dL (12.0-15.0); Lymphocyte # 1.85 X10^3/ul (0.83-4.51); Lymphocyte % 30.2 % (19-41); Mean Corp Hgb Conc 33.9 g/dL (32-36); Mean Corpuscular Hgb 31.1 pg (27.0-32.0); Mean Platelet Vol. 9.2 fl (6.2-12.0); Monocyte# 0.92 X10^3/uL; NRBC Flagged by Analyzer 0 % (0-5); Neutrophil # 2.91 X10^3/uL (2.7-7.7); Neutrophil % 47.5 % (47-70); Platelet Count 259 K/mm3 (150-450); RBC Distribution Width CV 12.5 % (11.6-14.6); RBC Distribution Width SD 41.2 fl (35.1-43.9); Red Blood Count 4.11 M/mm3 (4.2-5.4); White Blood Count 6.1 K/mm3 (4.4-11.0)
[2023-05-07 03:15] LABS: Anion Gap 4 (5-15); BUN 20 mg/dL (7-18); BUN/Creat Ratio 28.4 RATIO (10-20); Calcium,Total 8.6 mg/dL (8.5-10.1); Chloride 110 mmol/L (98-107); EST Glomerular Filtration Rate 89 mL/min (>60); Est Glom Filt Rate - Afr Amer 108 mL/min (>60); Estimated Creatinine Clearance 74.98 ml/min; Glucose 96 mg/dL (74-106); Potassium 3.7 mmol/L (3.5-5.1); Sodium Level 143 mmol/L (136-145); Troponin-I HS (w/2H Reflex) 8 pg/mL (3.0-54.0)
[2023-05-07] MEDS: Aspirin 81 MG TAB.CHEW 324 MG PO (04:26)
[2023-05-07 04:33] VITALS: BP 131/73; PULSE 82
[2023-05-07 04:55] LABS: Reflex Troponin-HS? (from REC) Y
[2023-05-07 05:00] LABS: D-Dimer Quantitative (DVT/PE) 0.72 FEU/ug/m (0.27-0.49)
[2023-05-07 05:06] VITALS: BP 139/64; PULSE 65; RESP 18; O2SAT 99
[2023-05-07 05:32] LABS: Troponin-I HS 9 pg/mL (3.0-54.0)
--- NOTE | 2023-05-07 05:44 | CT_ITS ---
EXAM: CT ANGIOGRAPHY CHEST WITHOUT AND WITH INTRAVENOUS CONTRAST CLINICAL INDICATION: Elevated D-dimer TECHNIQUE: Helically acquired angiography images were obtained of the chest without and with intravenous contrast. This CT exam was performed using one or more of the following dose reduction techniques: automated exposure control, adjustment of the mA and/or kV according to patient size, and/or use of iterative reconstruction technique. MIP reconstructed images were created and reviewed. CONTRAST: IV 100mL Isovue-370 RADIATION DOSE: CTDIvol = 13.9 mGy, DLP = 488.44 mGy-cm COMPARISON: CTA chest 08/13/2021 FINDINGS: PULMONARY ARTERIES: Unremarkable. Normal in caliber. No evidence of pulmonary embolism. AORTA: Unremarkable. No thoracic aortic aneurysm or dissection. GREAT VESSELS OF AORTIC ARCH: Unremarkable. Normal in caliber. No evidence of dissection. LUNGS AND PLEURAL SPACES: Mild scarring in the right middle and left lower lobes. No mass. No pleural effusion or thickening. No pneumothorax. HEART: Coronary artery calcifications. Heart size is normal. No pericardial effusion. MEDIASTINUM: Unremarkable. No mediastinal or hilar adenopathy. Esophagus is unremarkable. No hiatal hernia. THYROID: Unremarkable. No thyroid lesions. BONES/JOINTS: Degenerative changes of the spine. No suspicious lytic or blastic abnormality. CT/CTA Chest W/WO Contrast IMPRESSION: 1. No pulmonary embolism or other acute abnormality identified. 2. Coronary artery calcifications. Electronically Signed: Davi Gonzalez MD at 6:36 EST ,
[2023-05-07 07:00] VITALS: BP 132/78; PULSE 64; RESP 14; TEMP 36.6; O2SAT 98
== END 2023-05-07 07:41 | disposition home or self-care (01) ==
PROVIDERS: Emergency Provider Emergency Medicine; PCP Family Medicine; Visit Provider Emergency Medicine
DX: R07.9 Chest pain, unspecified (principal); I10 Essential (primary) hypertension; I25.10 Atherosclerotic heart disease of native coronary artery without angina pectoris; E78.00 Pure hypercholesterolemia, unspecified; Z79.82 Long term (current) use of aspirin; Z79.899 Other long term (current) drug therapy; Z86.718 Personal history of other venous thrombosis and embolism; Z86.16 Personal history of COVID-19
CPT/HCPCS: 71045; 71275; 80048; 84484; 85025; 85379; 93005; 99283; Q9967; A4216

== ENCOUNTER → 2023-05-17 | Outpatient (CLI) | payer OTHER, SELFPAY ==
[2023-05-17 15:18] LABS: Absolute Lymphocyte Count 1.23 X10^3/uL (0.83-4.51); Absolute Neutrophil Count 2.5 X10^3/uL (2.0-7.7); Basophil# 0.06 X10^3/uL; Basophil% 1.4 % (0-1); Eosinophil# 0.15 X10^3/uL; Eosinophils% 3.5 % (0-5); Hematocrit 39.6 % (37-47); Hemoglobin 12.9 g/dL (12.0-15.0); Lymphocyte # 1.23 X10^3/ul (0.83-4.51); Lymphocyte % 28.3 % (19-41); Mean Corp Hgb Conc 32.6 g/dL (32-36); Mean Corpuscular Hgb 30.3 pg (27.0-32.0); Mean Platelet Vol. 9.5 fl (6.2-12.0); Monocyte# 0.42 X10^3/uL; Monocyte% 9.7 % (0-10); NRBC Flagged by Analyzer 0 % (0-5); Neutrophil # 2.47 X10^3/uL (2.7-7.7); Neutrophil % 56.9 % (47-70); Platelet Count 282 K/mm3 (150-450); RBC Distribution Width CV 12.7 % (11.6-14.6); RBC Distribution Width SD 43.2 fl (35.1-43.9); Red Blood Count 4.26 M/mm3 (4.2-5.4); White Blood Count 4.3 K/mm3 (4.4-11.0)
[2023-05-17 16:05] LABS: AST(SGOT) 48 U/L (15-37); Alanine Aminotransfer ALT/SGPT 40 U/L (13-56); Albumin, Serum 3.3 g/dL (3.2-5.0); Alkaline Phosphatase 97 U/L (45-117); Anion Gap 7 (5-15); BUN 17 mg/dL (7-18); BUN/Creat Ratio 24.3 RATIO (10-20); Calcium,Total 8.9 mg/dL (8.5-10.1); Chloride 105 mmol/L (98-107); EST Glomerular Filtration Rate 90 mL/min (>60); Est Glom Filt Rate - Afr Amer 109 mL/min (>60); Globulin 3.4 g/dL (2.2-4.2); Glucose 100 mg/dL (74-106); Potassium 3.9 mmol/L (3.5-5.1); Protein, Total 6.7 g/dL (6.4-8.2); Sodium Level 140 mmol/L (136-145)
== END | disposition home or self-care (01) ==
LOC: MTLAB 14:00
PROVIDERS: PCP Family Medicine; Referring Provider Internal Medicine Rheumatology; Visit Provider Internal Medicine Rheumatology
DX: M06.4 Inflammatory polyarthropathy (principal); I10 Essential (primary) hypertension; E78.5 Hyperlipidemia, unspecified; Z79.899 Other long term (current) drug therapy
CPT/HCPCS: 36415; 80053; 85025

== ENCOUNTER → 2023-05-30 | Outpatient (CLI) | payer OTHER, SELFPAY ==
--- NOTE | 2023-05-30 09:26 | US_ITS ---
STUDY: ABDOMINAL ULTRASOUND - RIGHT UPPER QUADRANT REASON FOR VISIT: Female, 63 years old ABDOMINAL PAIN -- ELEVATED LIVER ENZ TECHNIQUE: Ultrasound evaluation of the right upper quadrant was performed with real-time and static mackenzie-scale imaging. TECHNICAL QUALITY: Adequate. COMPARISON: None. FINDINGS: Liver: The liver measures 14.8 cm. There is normal echogenicity of the liver. The bile ducts are within normal limits. There is hepatic color flow. The direction of portal flow is hepatopetal. There is no demonstrated mass lesion. Gallbladder: Normal distended gallbladder. The gallbladder wall measures 2.1 mm. There is a negative sonographic Berman''s sign. There is no pericholecystic fluid. There are no gallstones. Common Bile Duct (C.B.D.): The common bile duct measures 6.2 mm. Pancreas: Normal size of the head, body and tail of the pancreas. There is normal echogenicity of the pancreas. There is no demonstrated pancreatic mass or cyst. Right Kidney: Normal size of the right kidney. The right kidney measures 13.5 cm x 5.6 cm x 6 cm. Normal renal cortex. The right cortex measures 1.8 cm. 2 right renal cysts are seen. The larger cyst measures 5.5 cm x 4.7 cm x 4.2 cm. There is no right hydronephrosis. US/Liver IMPRESSION: Right renal cysts. Electronically Signed: Robert Judd MD at 12:48 EST ,
== END | disposition home or self-care (01) ==
PROVIDERS: PCP Family Medicine; Referring Provider Internal Medicine Rheumatology; Visit Provider Internal Medicine Rheumatology
DX: M06.4 Inflammatory polyarthropathy (principal); I10 Essential (primary) hypertension; E78.5 Hyperlipidemia, unspecified; Z79.899 Other long term (current) drug therapy
CPT/HCPCS: 76705

== ENCOUNTER → 2023-06-13 | Outpatient (CLI) | payer OTHER, SELFPAY ==
--- OUTSIDE RECORDS SUMMARY | 2023-06-13 13:04 | XMS RPT_ITS | CCD ---
Author Name Unknown Address [address] [place] [address] Organization [facility] Care Team Providers Care 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 Name Role Phone SURI Gee, Solange Cooney Unavailable Unavailabl Claudia Hui Unavailable Unavailable Salvador Alcantar Unavailable Unavailable Roof MOTTLE LAY UP OPERATOR, Titi Villa Unavailable SURI Gee, Solange Cooney Unavailable Unavailpritesh Gee RN, Solange Cooney Unavailable UnavailBryanna Wiley Primary Care Provider PAMELLA TRUJILLO Attending Unavailable JOELLE CASAS Referring Unavailable BRYANNA ANDERS Primary Care Unavailable Bryanna Anders Primary Care Provider Bryanna Anders Primary Care Provider [phone] BRYANNA ANDERS Primary Care Unavailable FRANCI METCALF Attending Unavailable BRYANNA ANDERS Primary Care Unavailable FRANCI METCALF Referring Unavailable Medications Current Medications Medication Drug Class(es) Dates Sig (Normalized) Sig (Original) polyethylene glycol 3350 341106 mg / potassium chloride 2970 mg / sodium bicarbonate 6740 mg / sodium chloride 5860 mg / sodium sulfate 05771 mg powder for oral solution (1 source) Osmotic Laxative Start: 03-08-2022 End: 03-08-2022 peg 3350-Electrolytes (GOLYTELY) 236-22.74-6.74 -5.86 gram suspension Take 4,000 mL by mouth one time only for 1 dose. 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 Disorders of lipid metabolism (6 sources) Hyperlipidemia; Translations: [Hyperlipidemia, unspecified] Onset: 03-22-2014 03-22-2014 Chronic Essential hypertension (15 sources) Hypertensive disorder; Translations: [Essential hypertension] Onset: 02-15-2014 02-15-2014 Chronic Headache, including migraine (4 sources) Migraine with aura; Translations: [Migraine with aura, not intractable, without status migrainosus] Onset: 01-27-2017 01-27-2017 Chronic Other non-traumatic joint disorders (6 sources) Arthritis; Translations: [Unspecified osteoarthritis, unspecified site] Onset: 02-15-2014 02-15-2014 Chronic Other nutritional; endocrine; and metabolic disorders (10 sources) Body mass index (BMI) 34.0-34.9, adult; Translations: [Body mass index (BMI) 39.0-39.9, adult] Onset: 05-27-2015 12-16-2015 Chronic Other nutritional; endocrine; and metabolic disorders (2 sources) Body mass index (BMI) 39.0-39.9, adult; Translations: [Body mass index (BMI) 39.0-39.9, adult] Onset: 05-27-2015 05-27-2015 Chronic Other nutritional; endocrine; and metabolic disorders (8 sources) Obese class I; Translations: [Obesity, unspecified] Onset: 04-01-2022 Chronic Other screening for suspected conditions (not mental disorders or infectious disease) (6 sources) Patient encounter status; Translations: [Encounter for screening for malignant neoplasm of colon] Onset: 04-13-2023 Episodic Unclassified (6 sources) Aftercare ; Translations: [Encounter for other specified surgical aftercare] Onset: 12-29-2015 12-30-2015 Past or Other Problems Problem Classification Problem Date Documented Date Episodic/Chronic Nonspecific chest pain (6 sources) Precordial pain; Translations: [Precordial pain] Onset: 02-15-2014 02-15-2014 Episodic Other aftercare (12 sources) Long-term (current) use of other medications; Translations: [Other intermediate project manager (current) drug therapy] Onset: 03-22-2014 Resolved: 11-25-2014 11-25-2014 Episodic Other aftercare (2 sources) Other shelter (current) drug therapy; Translations: [Other shelter (current) drug therapy] Onset: 11-25-2014 11-25-2014 Episodic Other and unspecified benign neoplasm (6 sources) Lipoma of head and neck; Translations: [Benign lipomatous neoplasm of skin and subcutaneous tissue of head, face and neck] Onset: 12-29-2015 12-30-2015 Episodic Other circulatory disease (6 sources) Abnormal result of cardiovascular function study, unspecified; Translations: [Abnormal result of cardiovascular function study, unspecified] Onset: 02-15-2014 02-15-2014 Episodic Other lower respiratory disease (4 sources) Dyspnea; Translations: [Shortness of breath] Onset: 01-27-2017 01-27-2017 Episodic Other nutritional; endocrine; and metabolic disorders (6 sources) Body mass index (BMI) 29.0-29.9, adult; Translations: [Body mass index (BMI) 29.0-29.9, adult] Onset: 05-27-2015 07-05-2016 Episodic Residual codes; unclassified (2 sources) FH: Hypertension; Translations: [Family history of ischemic heart disease and other diseases of the circulatory system] 02-15-2014 Episodic Residual codes; unclassified (11 sources) Family history of cancer of colon; Translations: [Family history of malignant neoplasm of digestive organs] Onset: 02-24-2017 Episodic Residual codes; unclassified (1 source) Family history of malignant neoplasm of digestive organs; Translations: [Family history of colon cancer] Onset: 02-24-2017 Episodic Unclassified (10 sources) Mass of head; Translations: [FH: Hypertension] Onset: 10-06-2015 11-11-2015 Episodic Unclassified (4 sources) Long-term drug therapy; Translations: [Long-term (current) use of other medications] Onset: 03-22-2014 Resolved: 11-25-2014 03-22-2014 Results Test Name Value Interpretation Reference Range Facil ity Vital Signs Date Time Vital Sign Value Performing Clinician Facility 04-13-2023 14:25-0500 Body height 165.1 cm Franci Metcalf MD Work Phone: [facility] 04-13-2023 14:25-0500 Body weight 91.17 kg Franci Metcalf MD Work Phone: [facility] 04-13-2023 14:25-0500 Diastolic blood pressure 74 mm[Hg] Franci Metcalf MD Work Phone: [facility] 04-13-2023 14:25-0500 Systolic blood pressure 122 mm[Hg] Franci Metcalf MD Work Phone: [facility] 04-01-2022 09:06-0500 Body height 165.1 cm Franci Metcalf MD Work Phone: [facility] 04-01-2022 09:06-0500 Body weight 87.09 kg Franci Metcalf MD Work Phone: [facility] 04-01-2022 09:06-0500 Diastolic blood pressure 76 mm[Hg] Franci Metcalf MD Work Phone: [facility] 04-01-2022 09:06-0500 Systolic blood pressure 122 mm[Hg] Franci Metcalf MD Work Phone: [facility] 03-08-2022 08:10-0400 Body height 167.6 cm Diane [place]ney[place] PA-C Work Phone: [facility] 03-08-2022 08:10-0400 Body temperature 96.91 [degF] Diane Edgardo PA-C Work Phone: [facility] 03-08-2022 08:10-0400 Body weight 87.36 kg Diane [place]ney[place] PA-C Work Phone: [facility] 03-08-2022 08:10-0400 Diastolic blood pressure 70 mm[Hg] Diane Edgardo PA-C Work Phone: [facility] 03-08-2022 08:10-0400 Heart rate 77 /min Diane [place] PA-C Work Phone: [facility] 03-08-2022 08:10-0400 SaO2% (BldA) [Mass fraction] 100 % Diane PA-C Work Phone: [facility] 03-08-2022 08:10-0400 Systolic blood pressure 114 mm[Hg] Diane Leonf PA-C Work Phone: [facility] 01-27-2017 11:59-0400 BMI (Body Mass Index) 26.62 kg/m2 [facility] Work Phone: 01-27-2017 11:59-0400 BP Diastolic 62 mm[Hg] [facility] Work Phone: 01-27-2017 11:59-0400 BP Systolic 124 mm[Hg] Claudia [facility] Work Phone: 01-27-2017 11:59-0400 Height 165.1 cm Claudia [facility] Work Phone: 01-27-2017 11:59-0400 Pulse (Heart Rate) 80 /min [facility] Work Phone: 01-27-2017 11:59-0400 Respiratory Rate 18 /min Claudia [facility] Work Phone: 01-27-2017 11:59-0400 Weight 72.58 kg Claudia [facility] Work Phone: 07-05-2016 08:43-0500 BMI (Body Mass Index) 29.62 kg/m2 Titi Craig NP [facility] Work Phone: 07-05-2016 08:43-0500 BP Diastolic 70 mm[Hg] Titi Craig NP [facility] Work Phone: 07-05-2016 08:43-0500 BP Systolic 128 mm[Hg] Titi Craig NP [facility] Work Phone: 07-05-2016 08:43-0500 BSA (Body Surface Area) 1.88 m2 Titi Craig NP [facility] Work Phone: 07-05-2016 08:43-0500 Height 165.1 cm Titi Craig MOTTLE LAY UP OPERATOR [facility] Work Phone: 07-05-2016 08:43-0500 Pulse (Heart Rate) 78 /min Titi Craig MOTTLE LAY UP OPERATOR [facility] Work Phone: 07-05-2016 08:43-0500 Respiratory Rate 18 /min Titi Craig MOTTLE LAY UP OPERATOR [facility] Work Phone: 07-05-2016 08:43-0500 Weight 80.74 kg Titi Craig MOTTLE LAY UP OPERATOR [facility] Work Phone: 12-29-2015 14:49-0400 Body Temperature 98.6 [degF] Titi Craig MOTTLE LAY UP OPERATOR [facility] Work Phone: 02-15-2014 13:51-0400 Heart rate 89 /min Solange Gee RN [facility] Work Phone: 02-15-2014 13:51-0400 Heart rate 422 ms Solange Gee RN [facility] Work Phone: Encounters Encounter Date Encounter Type Care Provider Facility Start: 04-14-2023 Documentation procedure Mammog elijah Coordinator [facility] Start: 04-14-2023 Letter encounter Mammography Coordinator [facility] Department Start: 04-13-2023 End: 04-14-2023 ambulatory BRYANNA KEYSHA ANDERS Facility:[facility] Start: 04-13-2023 Encounter for gynecological examination (general) (routine) without abnormal findings FRANCI METCALF [facility] Start: 04-13-2023 End: 04-13-2023 Patient encounter procedure Franci Metcalf MD Work Phone: OB/Gynecology Procedures Date Procedure Procedure Detail Performing Clinician Start: 04-01-2022 End: 04-01-2022 Mammography Franci Metcalf MD Work Phone: Start: 03-30-2021 Mammography Diane cerda PA-C Work Phone: Start: 03-31-2017 Colonoscopy Diane cerda PA-C Work Phone: Start: 01-27-2017 End: 01-27-2017 TRIPP Araiza MD Work Phone: Start: 01-27-2017 End: 01-27-2017 Follow Up Appt 6 months Timo Araiza MD Work Phone: Start: 01-27-2017 End: 01-27-2017 TRIPP Araiza MD Work Phone: Start: 01-27-2017 End: 01-27-2017 Follow Up Appt 6 months Timo Araiza MD Work Phone: Start: 01-03-2017 End: 01-20-2017 *Hepatic Function Panel Timo Araiza MD Work Phone: Start: 01-03-2017 End: 01-20-2017 Lipid 1996 panel - Serum or Plasma Timo Araiza MD Work Phone: Start: 01-03-2017 End: 01-20-2017 *Hepatic Function Panel Timo Araiza MD Work Phone: Start: 01-03-2017 End: 01-20-2017 Lipid panel [AGGREGATE] Timo Araiza MD Work Phone: Start: 07-05-2016 End: 07-05-2016 TRIPP Araiza MD Work Phone: Start: 07-05-2016 End: 07-05-2016 Follow Up Appt 6 months Timo Araiza MD Work Phone: Start: 07-05-2016 End: 07-05-2016 TRIPP Araiza MD Work Phone: Start: 07-05-2016 End: 07-05-2016 Follow Up Appt 6 months Timo Araiza MD Work Phone: Start: 06-11-2016 End: 07-01-2016 *Hepatic Function Panel Timo Araiza MD Work Phone: Start: 06-11-2016 End: 07-01-2016 Lipid 1996 panel - Serum or Plasma Timo Araiza MD Work Phone: Start: 06-11-2016 End: 07-01-2016 *Hepatic Function Panel Timo Araiza MD Work Phone: Start: 06-11-2016 End: 07-01-2016 Lipid panel [AGGREGATE] Timo Araiza MD Work Phone: Start: 12-29-2015 End: 01-01-2016 Follow Up Appt Other Micha Edwards MD Start: 12-29-2015 End: 01-01-2016 Follow Up Appt Other Micha Edwards MD Start: 12-16-2015 End: 12-16-2015 TRIPP Araiza MD Work Phone: Start: 12-16-2015 End: 12-16-2015 Follow Up Appt 6 months Timo Araiza MD Work Phone: Start: 12-16-2015 End: 12-16-2015 TRIPP Araiza MD Work Phone: Start: 12-16-2015 End: 12-16-2015 Follow Up Appt 6 months Timo Araiza MD Work Phone: Start: 11-28-2015 End: 12-08-2015 *Hepatic Function Panel Timo Araiza MD Work Phone: Start: 11-28-2015 End: 12-08-2015 Lipid 1996 panel - Serum or Plasma Timo Araiza MD Work Phone: Start: 11-28-2015 End: 12-08-2015 *Hepatic Function Panel Timo Araiza MD Work Phone: Start: 11-28-2015 End: 12-08-2015 Lipid panel [AGGREGATE] Timo Araiza MD Work Phone: Start: 05-28-2015 End: 05-30-2015 *Hepatic Function Panel Marjorie mohan PA-C Work Phone: Start: 05-28-2015 End: 05-30-2015 Lipid 1996 panel - Serum or Plasma Marjorie Jenkins PA-C Work Phone: Start: 05-28-2015 End: 05-30-2015 *Hepatic Function Panel Marjorie mohan PA-C Work Phone: Start: 05-28-2015 End: 05-30-2015 Lipid panel [AGGREGATE] Marjorie mohan PA-C Work Phone: Start: 05-27-2015 End: 12-16-2015 Complete sleep workup (PSG,CPAP as indicated) & Follow up Timo Araiza MD Work Phone: Start: 05-27-2015 End: 05-27-2015 TRIPP Araiza MD Work Phone: Start: 05-27-2015 End: 05-27-2015 Follow Up Appt 6 months Timo Araiza MD Work Phone: Start: 05-27-2015 End: 12-16-2015 Complete sleep workup (PSG,CPAP as indicated) & Follow up Timo Araiza MD Work Phone: Start: 05-27-2015 End: 05-27-2015 TRIPP Araiza MD Work Phone: Start: 05-27-2015 End: 05-27-2015 Follow Up Appt 6 months Timo Araiza MD Work Phone: Start: 11-11-2014 End: 11-25-2014 *Hepatic Function Panel Timo Araiza MD Work Phone: Start: 11-11-2014 End: 11-25-2014 Lipid 1996 panel - Serum or Plasma Timo Araiza MD Work Phone: Start: 11-11-2014 End: 11-25-2014 *Hepatic Function Panel Timo Araiza MD Work Phone: Start: 11-11-2014 End: 11-25-2014 Lipid panel [AGGREGATE] Timo Araiza MD Work Phone: Start: 05-06-2014 End: 05-16-2014 *Hepatic Function Panel Timo Araiza MD Work Phone: Start: 05-06-2014 End: 05-16-2014 Lipid 1996 panel - Serum or Plasma Timo Araiza MD Work Phone: Start: 05-06-2014 End: 05-16-2014 *Hepatic Function Panel Timo Araiza MD Work Phone: Start: 05-06-2014 End: 05-16-2014 Lipid panel [AGGREGATE] Timo Araiza MD Work Phone: Start: 03-04-2014 End: 03-22-2014 *BMP Timo Araiza MD Work Phone: Start: 03-04-2014 End: 03-22-2014 CBC W Auto Differential panel - Blood Timo Araiza MD Work Phone: Start: 03-04-2014 End: 03-22-2014 Chest x-ray Timo Araiza MD Work Phone: Start: 03-04-2014 End: 03-22-2014 *BMP Timo Araiza MD Work Phone: Start: 03-04-2014 End: 03-22-2014 CBC W Auto Differential panel - Blood Timo Araiza MD Work Phone: Start: 03-04-2014 End: 03-22-2014 Chest x-ray Timo Araiza MD Work Phone: Start: 02-15-2014 End: 03-22-2014 DJN Timo Araiza MD Work Phone: Start: 02-15-2014 End: 03-11-2014 Echocardiography Timo Araiza MD Work Phone: Start: 02-15-2014 End: 03-22-2014 Follow Up Appt 1 year Eros Lanza Work Phone: Start: 02-15-2014 End: 03-22-2014 Left Heart Cath Timo Araiza MD Work Phone: Start: 02-15-2014 End: 03-22-2014 TRIPP Araiza MD Work Phone: Start: 02-15-2014 End: 03-11-2014 Echocardiography Timo Araiza MD Work Phone: Start: 02-15-2014 End: 03-22-2014 Follow Up Appt 1 year Eros Lanza Work Phone: Start: 02-15-2014 End: 03-22-2014 Left Heart Cath Timo Araiza MD Work Phone: Plan of Treatment Date Care Activity Detail Author Start: 03-30-2026 HPV TESTING HPV TESTING [facility] Start: 03-30-2026 PAP TESTING PAP TESTING [facility] Start: 02-25-2025 Urine microalbumin profile [place] [facility] Start: 04-13-2024 BP Controlled (<130/80) BP Controlled (<130/80) [facility] Start: 04-13-2024 Mammography Mammogram Screening [facility] Start: 05-13-2023 Covid-19 Vaccine () Covid-19 Vaccine () [facility] Start: 04-01-2023 BP CONTROLLED (<130/80) BP CONTROLLED (<130/80) [facility] Start: 04-01-2023 Mammography [facility] Start: 03-08-2023 BP CONTROLLED (<130/80) BP CONTROLLED (<130/80) [facility] Start: 01-14-2023 Covid-19 Vaccine () Covid-19 Vaccine () [facility] Start: 01-14-2023 Influenza [facility] Start: 05-16-2022 DEPRESSION ASSESSMENT DEPRESSION ASSESSMENT [facility] Start: 03-31-2022 Colonoscopy COLONOSCOPY [facility] Start: 03-31-2022 COLORECTAL CANCER SCREENING COLORECTAL CANCER SCREENING [facility] Start: 03-30-2022 Mammography MAMMOGRAM [facility] Start: 01-20-2022 LIPID SCREEN LIPID SCREEN [facility] Start: 01-14-2022 Influenza vaccination INFLUENZA (#1) [facility] Start: 01-03-2022 Lipid 1996 panel - Serum or Plasma Lipid Screening [facility] Start: 12-27-2021 COVID-19 VACCINE (5 - Booster for Moderna series) COVID-19 VACCINE (5 - Booster for Moderna series) [facility] Start: 05-16-2021 DEPRESSION ASSESSMENT DEPRESSION ASSESSMENT [facility] Start: 08-04-2017 End: 08-04-2017 Appointment Appointment [facility] Work Phone: Start: 07-20-2017 End: 01-24-2017 *Hepatic Function Panel *Hepatic Function Panel [facility] Work Phone: Start: 07-20-2017 End: 01-24-2017 Lipid 1996 panel *Lipid Profile CC PCP [facility] Work Phone: Start: 07-20-2017 End: 01-24-2017 *Hepatic Function Panel *Hepatic Function Panel [facility] Work Phone: Start: 07-20-2017 End: 01-24-2017 Lipid panel [AGGREGATE] *Lipid Profile CC PCP [facility] Work Phone: Start: 01-27-2017 End: 01-27-2017 TRIPP ALMAGUER [facility] Work Phone: Start: 01-27-2017 End: 01-27-2017 Follow Up Appt 6 months Follow Up Appt 6 months [facility] Work Phone: Start: 01-27-2017 End: 01-27-2017 Neurology Referral Neurology Referral Radha Varghese MD, [address], [address], [place], [address] [facility] Work Phone: Start: 01-27-2017 End: 01-27-2017 Stress Echocardiogram (treadmill) Stress Echocardiogram (treadmill) [facility] Work Phone: Start: 01-27-2017 End: 01-27-2017 Appointment Appointment [facility] Work Phone: Start: 01-27-2017 End: 01-27-2017 TRIPP ALMAGUER [facility] Work Phone: Start: 01-27-2017 End: 01-27-2017 Follow Up Appt 6 months Follow Up Appt 6 months [facility] Work Phone: Start: 01-27-2017 End: 01-27-2017 Neurology Referral Neurology Referral Radha Varghese MD, [address], [place], [address] [facility] Work Phone: Start: 01-27-2017 End: 01-27-2017 Stress Echocardiogram (treadmill) Stress Echocardiogram (treadmill) [facility] Work Phone: Start: 01-03-2017 End: 01-20-2017 *Hepatic Function Panel *Hepatic Function Panel [facility] Work Phone: Start: 01-03-2017 End: 01-20-2017 Lipid 1996 panel *Lipid Profile CC PCP [facility] Work Phone: Start: 01-03-2017 End: 01-20-2017 *Hepatic Function Panel *Hepatic Function Panel [facility] Work Phone: Start: 01-03-2017 End: 01-20-2017 Lipid panel [AGGREGATE] *Lipid Profile CC PCP [facility] Work Phone: Start: 09-23-2016 LIPID SCREEN LIPID SCREEN [facility] Start: 07-05-2016 End: 07-05-2016 DJN DJN [facility] Work Phone: Start: 07-05-2016 End: 07-05-2016 Follow Up Appt 6 months Follow Up Appt 6 months [facility] Work Phone: Start: 07-05-2016 End: 07-05-2016 DJN DJN [facility] Work Phone: Start: 07-05-2016 End: 07-05-2016 Follow Up Appt 6 months Follow Up Appt 6 months [facility] Work Phone: Start: 06-11-2016 End: 07-01-2016 *Hepatic Function Panel *Hepatic Function Panel [facility] Work Phone: Start: 06-11-2016 End: 07-01-2016 Lipid 1996 panel *Lipid Profile CC PCP [facility] Work Phone: Start: 06-11-2016 End: 07-01-2016 *Hepatic Function Panel *Hepatic Function Panel [facility] Work Phone: Start: 06-11-2016 End: 07-01-2016 Lipid panel [AGGREGATE] *Lipid Profile CC PCP [facility] Work Phone: Start: 12-29-2015 End: 01-01-2016 Follow Up Appt Other Follow Up Appt Other [facility] Work Phone: Start: 12-29-2015 End: 12-29-2015 Primary Care Physician Primary Care Physician Bryanna Anders, [facility], [address] [place] [address] [address], [place], [address] [facility] Work Phone: Start: 12-29-2015 End: 01-01-2016 Follow Up Appt Other Follow Up Appt Other [facility] Work Phone: Start: 12-29-2015 End: 12-29-2015 Primary Care Physician Primary Care Physician Bryanna Anders, [facility], [address] [place] [address] [address], [place], [address] [facility] Work Phone: Start: 12-16-2015 End: 12-16-2015 TRIPP DJN [facility] Work Phone: Start: 12-16-2015 End: 12-16-2015 Follow Up Appt 6 months Follow Up Appt 6 months [facility] Work Phone: Start: 12-16-2015 End: 12-16-2015 DJN DJN [facility] Work Phone: Start: 12-16-2015 End: 12-16-2015 Follow Up Appt 6 months Follow Up Appt 6 months [facility] Work Phone: Start: 11-28-2015 End: 12-08-2015 *Hepatic Function Panel *Hepatic Function Panel [facility] Work Phone: Start: 11-28-2015 End: 12-08-2015 Lipid 1996 panel *Lipid Profile CC PCP [facility] Work Phone: Start: 11-28-2015 End: 12-08-2015 *Hepatic Function Panel *Hepatic Function Panel [facility] Work Phone: Start: 11-28-2015 End: 12-08-2015 Lipid panel [AGGREGATE] *Lipid Profile CC PCP [facility] Work Phone: Start: 05-28-2015 End: 05-30-2015 *Hepatic Function Panel *Hepatic Function Panel [facility] Work Phone: Start: 05-28-2015 End: 05-30-2015 Lipid 1996 panel *Lipid Profile CC PCP [facility] Work Phone: Start: 05-28-2015 End: 05-30-2015 *Hepatic Function Panel *Hepatic Function Panel [facility] Work Phone: Start: 05-28-2015 End: 05-30-2015 Lipid panel [AGGREGATE] *Lipid Profile CC PCP [facility] Work Phone: Start: 05-27-2015 End: 12-16-2015 Complete sleep workup (PSG,CPAP as indicated) & Follow up Complete sleep workup (PSG,CPAP as indicated) & Follow up [facility] Work Phone: Start: 05-27-2015 End: 05-27-2015 TRIPP ALMAGUER [facility] Work Phone: Start: 05-27-2015 End: 05-27-2015 Follow Up Appt 6 months Follow Up Appt 6 months [facility] Work Phone: Start: 05-27-2015 End: 12-16-2015 Complete sleep workup (PSG,CPAP as indicated) & Follow up Complete sleep workup (PSG,CPAP as indicated) & Follow up [facility] Work Phone: Start: 05-27-2015 End: 05-27-2015 TRIPP JONN [facility] Work Phone: Start: 05-27-2015 End: 05-27-2015 Follow Up Appt 6 months Follow Up Appt 6 months [facility] Work Phone: Start: 11-11-2014 End: 11-25-2014 *Hepatic Function Panel *Hepatic Function Panel [facility] Work Phone: Start: 11-11-2014 End: 11-25-2014 Lipid 1996 panel *Lipid Profile CC PCP [facility] Work Phone: Start: 11-11-2014 End: 11-25-2014 *Hepatic Function Panel *Hepatic Function Panel [facility] Work Phone: Start: 11-11-2014 End: 11-25-2014 Lipid panel [AGGREGATE] *Lipid Profile CC PCP [facility] Work Phone: Start: 09-23-2014 DIABETES SCREEN DIABETES SCREEN [facility] Start: 09-23-2014 Diabetes Screening Diabetes Screening [facility] Start: 05-06-2014 End: 05-13-2014 *Hepatic Function Panel *Hepatic Function Panel [facility] Work Phone: Start: 05-06-2014 End: 05-13-2014 Lipid 1996 panel *Lipid Profile CC PCP [facility] Work Phone: Start: 05-06-2014 End: 05-13-2014 *Hepatic Function Panel *Hepatic Function Panel [facility] Work Phone: Start: 05-06-2014 End: 05-13-2014 Lipid panel [AGGREGATE] *Lipid Profile CC PCP [facility] Work Phone: Start: 03-04-2014 End: 03-22-2014 *BMP *BMP [facility] Work Phone: Start: 03-04-2014 End: 03-22-2014 CBC W Auto Differential panel - Blood *CBC without Diff [facility] Work Phone: Start: 03-04-2014 End: 03-22-2014 Chest x-ray X-Ray, Chest, PA & Lateral [facility] Work Phone: Start: 03-04-2014 End: 03-22-2014 *BMP *BMP [facility] Work Phone: Start: 03-04-2014 End: 03-22-2014 CBC W Auto Differential panel - Blood *CBC without Diff [facility] Work Phone: Start: 03-04-2014 End: 03-22-2014 Chest x-ray X-Ray, Chest, PA & Lateral [facility] Work Phone: Start: 02-15-2014 End: 03-22-2014 TRIPP ALMAGUER [facility] Work Phone: Start: 02-15-2014 End: 02-15-2014 Echocardiography Echocardiogram (complete) [facility] Work Phone: Start: 02-15-2014 End: 03-22-2014 Follow Up Appt 1 year Follow Up Appt 1 year [facility] Work Phone: Start: 02-15-2014 End: 02-15-2014 Left Heart Cath Left Heart Cath [facility] Work Phone: Start: 02-15-2014 End: 03-22-2014 TRIPP ALMAGUER [facility] Work Phone: Start: 02-15-2014 End: 02-15-2014 Echocardiography Echocardiogram (complete) [facility] Work Phone: Start: 02-15-2014 End: 03-22-2014 Follow Up Appt 1 year Follow Up Appt 1 year [facility] Work Phone: Start: 02-15-2014 End: 02-15-2014 Left Heart Cath Left Heart Cath [facility] Work Phone: Start: 2006 COLOGUARD (FIT-DNA) COLOGUARD (FIT-DNA) [facility] Start: [address] COLONOGRAPHY [facility] Start: 2006 FECAL OCCULT BLOOD FECAL OCCULT BLOOD [facility] Start: 2006 SIGMOIDOSCOPY SIGMOIDOSCOPY [facility] Start: 01-30-1980 SHINGRIX VACCINE (1 of 2) SHINGRIX VACCINE (1 of 2) [facility] Start: 1979 ANNUAL PCP TEAM CHRONIC DISEASE VISIT ANNUAL PCP TEAM CHRONIC DISEASE VISIT [facility] Start: 1979 HEPATITIS C SCREENING HEPATITIS C SCREENING [facility] Start: 1979 HIV SCREENING HIV SCREENING [facility] Start: 1967 PNEUMOCOCCAL (1 - PCV) PNEUMOCOCCAL (1 - PCV) [facility] Start: 1967 Pneumococcal vaccination Pneumococcal Vaccine (1 - PCV) [facility] End: 05-12-2024 ROSIE SCREENING ROSIE SCREENING Radiology Routine Encounter for gynecological examination (general) (routine) without abnormal findings Encounter for screening mammogram for breast cancer 1 Occurrences starting 04/13/2023 until 05/12/2024 [facility] Work Phone: Immunizations Immunization Date Immunization Notes Care Provider Fa cili 03-18-2023 influenza, injectabl e, quadrivalent, preservative free Franci Metcalf MD Work Phone: [facility] Work Phone: 03-18-2023 respiratory syncytia l virus (RSV) vaccine, bivalent (ABRYSVO) Franci Metcalf MD Work Phone: [facility] Work Phone: 05-11-2021 zoster vaccine recombinant Franci Metcalf MD Work Phone: [facility] Work Phone: 11-11-2020 zoster vaccine recombinant Franci Metcalf MD Work Phone: [facility] Work Phone: 09-13-2020 COVID-19 original vaccine, full dose, monovalent (MODERNA) Franci Metcalf MD Work Phone: [facility] Work Phone: 02-03-2020 influenza, injectabl e, quadrivalent, preservative free Diane Reynoso PA-C Work Phone: [facility] Work Phone: 02-03-2020 influenza virus vaccine, unspecified formulation Screen Wstr [facility] 02-25-2019 influenza, injectabl e, quadrivalent, preservative free Diane Reynoso PA-C Work Phone: [facility] Work Phone: 02-23-2018 influenza, injectabl e, quadrivalent, preservative free Diane [place] PA-C Work Phone: [facility] Work Phone: 02-01-2017 influenza, seasonal, injectable Diane [place] PA-C Work Phone: [facility] Work Phone: 02-25-2015 tetanus toxoid, redu rell diphtheria toxoid, and acellular pertussis vaccine, adsorbed Diane Edgardo PA-C Work Phone: [facility] Work Phone: 2014 influenza, seasonal, injectable Diane [place] PA-C Work Phone: [facility] Work Phone: 02-08-2012 influenza, seasonal, injectable Diane Edgardo PA-C Work Phone: [facility] Work Phone: Payers Date Payer Category Payer Unknown [id number] 2020 Unknown [id number] 2020 Unknown [id number] Social History Date Type Detail Facility Start: 04-01-2022 Tobacco smoking stat [facility] Never smoked tobacco [facility] Start: 03-08-2022 End: 04-13-2023 Alcohol intake Current drinker of alcohol (finding) [facility] Start: 09-16-2011 Alcohol Comment ocas glass of wine [facility] Start: 1960 Sex Assigned At Not on file [facility] Start: 02-26-2022 End: 04-01-2022 Exposure to SARS-CoV-2 (event) Not sure [facility] Start: 04-01-2022 Tobacco use and exposure Smoke less tobacco non-user [facility] Start: 04-01-2022 End: 04-13-2023 History of Social function [facility] Start: 04-01-2022 End: 04-13-2023 Tobacco use panel [facility] National Score (1-10 0), lower number is lower risk Not on file [facility] Clinical Notes 07-12-2006 to 04-14-2023 Letter - Coordinator, Mammography - 04/14/2023 2:08 PM Franci Mccormack MD - 04/13/2023 2:23 PM Rebecca Jon Mammo Tech - 04/13/2023 1:50 PM Tony Reynoso PA-C - 03/08/2022 8:14 AM EDT Note Date & Type Note Facility 04-14-2023 Miscellaneous Notes April 15, 2023 PID: [id number] Maegan Pruett [address] [place] [address] Dear Ms. Pruett, We are pleased to inform you that the results of your recent breast imaging exam on 04/13/2023 are normal. Early detection of cancer is very important. We also understand recommendations regarding breast cancer screening are controversial. Please discuss with your primary care provider which strategy is best for you and whether a mammogram is right for you. Your imaging studies and report will be kept on file at [facility] as part of your permanent medical record and are available for your continuing care. Thank you for allowing us to help in meeting your health care needs. Sincerely, Dr. Hdez Interpreting Radiologist [facility] (Normal over 40) documented in this encounter [facility] 04-13-2023 Note HNO ID: [id number] Author: Franci Metcalf MD Service: ? Author Type: Physician Type: Progress Notes Filed: 04/13/2023 2:40 PM Note Text: Maegan is a 63 year old who presents for an annual gynecologic exam without complaints. Postmenopausal: yes HRT use: No. Last Pap: 04/07/2021 normal HPV: 04/01/2021 negative History of abnormal pap: No Last mammogram: today pending History of abnormal mammogram: call back but no bx OB History T4 L4 SAB0 IAB0 Ectopic0 Multiple0 Live Births0 Comment: 4 vaginal deliveries [employer] History LMP: 09/14/2006, Ablation Age at Menarche: Age at First : Age at Menopause: [employer] History Comments: Sexual Activity: Yes; Male; husbands vasectomy Contraception: Vasectomy PAST MEDICAL HISTORY Diagnosis Date Arthritis Embolism and thrombosis of unspecified site 07/12/06 blood clot in left leg Hepatitis in other infectious diseases classified elsewhere Hypertension PMH - PAST MEDICAL HISTORY OF DVT DURING Snoring PAST SURGICAL HISTORY Procedure Laterality Date ANESTHESIA ARTHROSCOPIC PROCEDURE ANKLE AND FOOT CARDIAC CATHETERIZATION HX fall 2013 COLONOSCOPY FLX DX W/COLLJ SPEC WHEN PFRMD 11/16/2011 5 yr repeat due to family history of colon cancer COLONOSCOPY FLX DX W/COLLJ SPEC WHEN PFRMD 03/31/2017 Colonoscopy COLONOSCOPY SCREENING 03/2022 repeat in 5 years ENDOMETRIAL BX W/WO ENDOCERVIX BX W/O DILAT SPX 06/18/2006 EYELID SURGERY PROCEDURE 11/2022 LAPS ABD PRTMANDOMENTUM DX W/WO SPEC BR/WA SPX Laparoscopy, laser PAST SURGICAL HISTORY OF 11/22/2006 Novasure PAST SURGICAL HISTORY OF 2004 left bunionectomy UTERINE ARTERY EMBOLIZ 08/2009 FAMILY HISTORY Problem Relation Age of Onset Cancer Mother colon other (pulmonary fibrosis) Mother other (back surgery) Mother Hypertension Father Prostate Cancer Father Stroke Father Colon Cancer Father other (triple bypass) Father PR x 2 other (near kidney/liver failure) Father Emphysema Brother Cancer Maternal Grandmother Breast Cancer Colon Cancer Maternal Grandmother Stroke Paternal Grandmother Heart Paternal Grandfather Cancer Maternal Aunt Abdominal Cancer ??etiology SOCIAL HISTORY Social History Tobacco Use Smoking status: Never Smokeless tobacco: Never Vaping Use Vaping Use: Never used Substance Use Topics Alcohol use: Yes Comment: ocas glass of wine Drug use: No REVIEW OF SYSTEMS Abdomen: No abdominal pain, nausea, vomiting, diarrhea, or constipation. No bloating, early satiety, indigestion, or increased flatulence. Bladder: No dysuria, gross hematuria, urinary frequency, urinary urgency, or incontinence Breast: No breast lumps, nipple d/c, overlying skin changes, redness or skin retraction Allergies and current medication updated:Yes EXAM: BP 122/74 Ht 5' 5 (1.65m) Wt 201 lb (91.2kg) LMP 09/14/2006 BMI 33.45 kg/(m2). GENERAL: pleasant, female in no apparent distress HEENT: Normocephalic, atraumatic, mucus membranes moist, and no lesions NECK: Supple, full range of motion, no adenopathy, and thyroid normal DERMATOLOGY: Normal, without lesions, non-icteric, and non-hirsute BREAST: soft, non-tender, symmetric, no dominant mass, normal nipple-areolar complex, no lymphadenopathy, and no nipple discharge CHEST: Normal inspiratory effort ABDOMEN: soft, non-tender, and no masses PELVIC: external genitalia normal, normal Bartholin's glands, urethra, [place]'s glands, no vulvar lesions, no cervical lesions, physiologic discharge present, normal appearing perineal body and perianal region, cystocele 1st degree, rectocele 1st degree, cervical prolapse 1st degree BIMANUAL: uterus normal size, shape and consistency, no adnexal masses, and non-tender RECTOVAGINAL: deferred. NEURO: alert and oriented x3,exam grossly non-focal EXTREMITIES: normal ASSESSMENT/PLAN: 1) Health maintenance: Pap/HPV up to date. Mammogram ordered Colon cancer screening: up to date with screening 2) Follow up one year or sooner as needed Franci Metcalf MD [facility] 04-13-2023 Note HNO ID: [id number] Author: Rebecca Sena Mammo Tech Service: ? Author Type: Health Safety Coordinator Type: Progress Notes Filed: 04/13/2023 2:13 PM Note Text: Radiology Service Progress Note PATIENT NAME: Maegan Pruett DATE OF SERVICE: April 13, 2023 TIME: 1:45 PM PATIENT IDENTITY VERIFICATION COMPLETED USING TWO (2) IDENTIFIERS: Name and Date of confirmed by patient verbally. FALL SCREENING: Has the patient had 2 falls in the last year or 1 fall with injury or currently using an Ambulatory Assistive Device (Walker, Cane, Wheelchair, Crutches, etc.)? No PATIENT GENDER DATA: Female. status: : No status: NO. PATIENT RELEVANT IMPLANT DATA REVIEWED: Yes RADIOLOGY DEPARTMENT: Mammography PERIPHERAL IV DATA: Not applicable SIGNED BY: Jaspreet Lizama April 13, 2023 1:45 PM [facility] 04-13-2023 History of Presen t illness Narrative Maegan is a 63 year old who presents for an annual gynecologic exam without complaints. Postmenopausal: yes HRT use: No. Last Pap: 04/07/2021 normal HPV: 04/01/2021 negative History of abnormal pap: No Last mammogram: today pending History of abnormal mammogram: call back but no bx OB History T4 L4 SAB0 IAB0 Ectopic0 Multiple0 Live Births0 Comment: 4 vaginal deliveries [employer] History LMP: 09/14/2006, Ablation Age at Menarche: Age at First : Age at Menopause: [employer] History Comments: Sexual Activity: Yes; Male; husbands vasectomy Contraception: Vasectomy PAST MEDICAL HISTORY Diagnosis Date Arthritis Embolism and thrombosis of unspecified site 07/12/06 blood clot in left leg Hepatitis in other infectious diseases classified elsewhere Hypertension PMH - PAST MEDICAL HISTORY OF DVT DURING Snoring PAST SURGICAL HISTORY Procedure Laterality Date ANESTHESIA ARTHROSCOPIC PROCEDURE ANKLE & FOOT CARDIAC CATHETERIZATION HX fall COLONOSCOPY FLX DX W/COLLJ SPEC WHEN PFRMD 11/16/2011 5 yr repeat due to family history of colon cancer COLONOSCOPY FLX DX W/COLLJ SPEC WHEN PFRMD 03/31/2017 Colonoscopy COLONOSCOPY SCREENING 03/2022 repeat in 5 years ENDOMETRIAL BX W/WO ENDOCERVIX BX W/O DILAT SPX 06/18/2006 EYELID SURGERY PROCEDURE 11/2022 LAPS ABD PRTM&OMENTUM DX W/WO SPEC BR/WA SPX Laparoscopy, laser PAST SURGICAL HISTORY OF 11/22/2006 Novasure PAST SURGICAL HISTORY OF 2004 left bunionectomy UTERINE ARTERY EMBOLIZ 08/2009 FAMILY HISTORY Problem Relation Age of Onset Cancer Mother colon other (pulmonary fibrosis) Mother other (back surgery) Mother Hypertension Father Prostate Cancer Father Stroke Father Colon Cancer Father other (triple bypass) Father PR x 2 other (near kidney/liver failure) Father Emphysema Brother Cancer Maternal Grandmother Breast Cancer Colon Cancer Maternal Grandmother Stroke Paternal Grandmother Heart Paternal Grandfather Cancer Maternal Aunt Abdominal Cancer ??etiology SOCIAL HISTORY Social History Tobacco Use Smoking status: Never Smokeless tobacco: Never Vaping Use Vaping Use: Never used Substance Use Topics Alcohol use: Yes Comment: ocas glass of wine Drug use: No REVIEW OF SYSTEMS Abdomen: No abdominal pain, nausea, vomiting, diarrhea, or constipation. No bloating, early satiety, indigestion, or increased flatulence. Bladder: No dysuria, gross hematuria, urinary frequency, urinary urgency, or incontinence Breast: No breast lumps, nipple d/c, overlying skin changes, redness or skin retraction Allergies and current medication updated:Yes EXAM: BP 122/74 Ht 5' 5 (1.65m) Wt 201 lb (91.2kg) LMP 09/14/2006 BMI 33.45 kg/(m^2). GENERAL: pleasant, female in no apparent distress HEENT: Normocephalic, atraumatic, mucus membranes moist, and no lesions NECK: Supple, full range of motion, no adenopathy, and thyroid normal DERMATOLOGY: Normal, without lesions, non-icteric, and non-hirsute BREAST: soft, non-tender, symmetric, no dominant mass, normal nipple-areolar complex, no lymphadenopathy, and no nipple discharge CHEST: Normal inspiratory effort ABDOMEN: soft, non-tender, and no masses PELVIC: external genitalia normal, normal Bartholin's glands, urethra, [place]'s glands, no vulvar lesions, no cervical lesions, physiologic discharge present, normal appearing perineal body and perianal region, cystocele 1st degree, rectocele 1st degree, cervical prolapse 1st degree BIMANUAL: uterus normal size, shape and consistency, no adnexal masses, and non-tender RECTOVAGINAL: deferred. NEURO: alert and oriented x3,exam grossly non-focal EXTREMITIES: normal ASSESSMENT/PLAN: 1) Health maintenance: Pap/HPV up to date. Mammogram ordered Colon cancer screening: up to date with screening 2) Follow up one year or sooner as needed Franci Metcalf MD documented in this encounter [facility] 04-13-2023 History of Presen t illness Narrative Radiology Service Progress Note PATIENT NAME: Maegan Pruett DATE OF SERVICE: April 13, 2023 TIME: 1:45 PM PATIENT IDENTITY VERIFICATION COMPLETED USING TWO (2) IDENTIFIERS: Name and Date of confirmed by patient verbally. FALL SCREENING: Has the patient had 2 falls in the last year or 1 fall with injury or currently using an Ambulatory Assistive Device (Walker, Cane, Wheelchair, Crutches, etc.)? No PATIENT GENDER DATA: Female. status: : No status: NO. PATIENT RELEVANT IMPLANT DATA REVIEWED: Yes RADIOLOGY DEPARTMENT: Mammography PERIPHERAL IV DATA: Not applicable SIGNED BY: Rebecca Sena Twillion April 13, 2023 1:45 PM documented in this encounter [facility] 07-22-2022 Miscellaneous Notes 2017 colonoscopy report faxed to Dr. Bryanna Anders. Fax confirmation sheet received. Celena Persaud RN Patient called in requesting Colonoscopy report sent to bryanna anders office. Berenice Villagran LPN documented in this encounter [facility] 04-01-2022 Miscellaneous Notes April 01, 2022 PID: [id number] Maegan Pruett [address] [place] [address] Dear Seble, We are pleased to inform you that the results of your recent breast imaging exam on 04/01/2022 are normal. Early detection of cancer is very important. We also understand recommendations regarding breast cancer screening are controversial. Please discuss with your primary care provider which strategy is best for you and whether a mammogram is right for you. Your imaging studies and report will be kept on file at [facility] as part of your permanent medical record and are available for your continuing care. Thank you for allowing us to help in meeting your health care needs. Sincerely, Dr. Dsouza Interpreting Radiologist [facility] (Normal over 40) documented in this encounter [facility] 04-01-2022 History of Presen t illness Narrative Radiology Service Progress Note PATIENT NAME: Maegan Pruett DATE OF SERVICE: April 01, 2022 TIME: 9:55 AM PATIENT IDENTITY VERIFICATION COMPLETED USING TWO (2) IDENTIFIERS: Name and Date of confirmed by patient verbally. FALL SCREENING: Has the patient had 2 falls in the last year or 1 fall with injury or currently using an Ambulatory Assistive Device (Walker, Cane, Wheelchair, Crutches, etc.)? No PATIENT GENDER DATA: Female. status: : No status: NO. PATIENT RELEVANT IMPLANT DATA REVIEWED: Not Applicable RADIOLOGY DEPARTMENT: Mammography PERIPHERAL IV DATA: Not applicable SIGNED BY: Pily Barry Twillion April 01, 2022 9:55 AM documented in this encounter [facility] 04-01-2022 History of Presen t illness Narrative Maegan is a 62 year old who presents for an annual gynecologic exam without complaints. Postmenopausal: yes HRT use: No. Last Pap: 04/07/2021 normal HPV: 04/01/2021 negative History of abnormal pap: No Last mammogram: 2020 normal History of abnormal mammogram: No Sexually active: Yes OB History T4 L4 SAB0 IAB0 Ectopic0 Multiple0 Live Births0 Comment: 4 vaginal deliveries [employer] History LMP: 09/14/2006, Ablation Age at Menarche: Age at First : Age at Menopause: Route [employer] History Comments: Sexual Activity: Yes; Male; husbands vasectomy Contraception: Vasectomy PAST MEDICAL HISTORY Diagnosis Date Arthritis Embolism and thrombosis of unspecified site 07/12/06 blood clot in left leg Hepatitis in other infectious diseases classified elsewhere Hypertension PMH - PAST MEDICAL HISTORY OF DVT DURING Snoring PAST SURGICAL HISTORY Procedure Laterality Date ANESTHESIA ARTHROSCOPIC PROCEDURE ANKLE & FOOT CARDIAC CATHETERIZATION HX fall COLONOSCOPY FLX DX W/COLLJ SPEC WHEN PFRMD 11/16/2011 5 yr repeat due to family history of colon cancer COLONOSCOPY FLX DX W/COLLJ SPEC WHEN PFRMD 03/31/2017 Colonoscopy COLONOSCOPY SCREENING 03/2022 repeat in 5 years ENDOMETRIAL BX W/WO ENDOCERVIX BX W/O DILAT SPX 06/18/2006 LAPS ABD PRTM&OMENTUM DX W/WO SPEC BR/WA SPX Laparoscopy, laser PAST SURGICAL HISTORY OF 11/22/2006 Novasure PAST SURGICAL HISTORY OF 2004 left bunionectomy UTERINE ARTERY EMBOLIZ 08/2009 FAMILY HISTORY Problem Relation Age of Onset Cancer Mother colon other (pulmonary fibrosis) Mother other (back surgery) Mother Hypertension Father Prostate Cancer Father Stroke Father Colon Cancer Father other (triple bypass) Father PR x 2 other (near kidney/liver failure) Father Emphysema Brother Cancer Maternal Grandmother Breast Cancer Colon Cancer Maternal Grandmother Stroke Paternal Grandmother Heart Paternal Grandfather Cancer Maternal Aunt Abdominal Cancer ??etiology SOCIAL HISTORY Social History Tobacco Use Smoking status: Never Smokeless tobacco: Never Vaping Use Vaping Use: Never used Substance Use Topics Alcohol use: Yes Comment: ocas glass of wine Drug use: No REVIEW OF SYSTEMS Abdomen: No abdominal pain, nausea, vomiting, diarrhea, or constipation. No bloating, early satiety, indigestion, or increased flatulence. Bladder: No dysuria, gross hematuria, urinary frequency, urinary urgency, or incontinence Breast: No breast lumps, nipple d/c, overlying skin changes, redness or skin retraction Allergies and current medication updated:Yes EXAM: BP 122/76 Ht 5' 5 (1.65m) Wt 192 lb (87.1kg) LMP 09/14/2006 BMI 31.95 kg/(m^2). GENERAL: pleasant, female in no apparent distress HEENT: Normocephalic, atraumatic, mucus membranes moist, and no lesions NECK: Supple, full range of motion, no adenopathy, and thyroid normal DERMATOLOGY: Normal, without lesions, non-icteric, and non-hirsute BREAST: soft, non-tender, symmetric, no dominant mass, normal nipple-areolar complex, no lymphadenopathy, and no nipple discharge CHEST: Normal inspiratory effort ABDOMEN: soft, non-tender, and no masses PELVIC: external genitalia normal, normal Bartholin's glands, urethra, [place]'s glands, no vulvar lesions, no cervical lesions, good vaginal support, physiologic discharge present, normal appearing perineal body and perianal region, rectocele 1st degree, cervical prolapse 1st degree BIMANUAL: uterus normal size, shape and consistency, no adnexal masses, and non-tender RECTOVAGINAL: deferred. NEURO: alert and oriented x3,exam grossly non-focal EXTREMITIES: normal ASSESSMENT/PLAN: 1) Health maintenance: Pap/HPV up to date. Colon cancer screening: up to date with screening 2) Follow up one year or sooner as needed Franci Metcalf MD documented in this encounter [facility] 03-08-2022 Miscellaneous Notes 03/25 COLON LODI Patient scheduled for colon consult in office with Diane Reynoso 03/08 Nettie Devine Palaeontologist Patient calling to schedule colonoscopy. States she received letter stating she was due. Please contact patient to facilitate. 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 Maegan notes no colon complaints. Patient denies any change in bowel habits, weight changes, blood in stools, black tarry stools or abdominal pain. NOTES family history of colon cancer. Maegan has undergone prior endoscopy. Most recent colonoscopy 03/31/[address] Casas with findings of non-bleeding internal and external hemorrhoids and tortuous colon. Repeat colonoscopy was recommended in 5 years based on family history, and surgeon recommended next procedure be performed with [facility]. Patient denies chest pain, shortness of breath or recent hospitalizations. Denies problems with sedation in the past. PAST MEDICAL HISTORY Diagnosis Date Arthritis Embolism and thrombosis of unspecified site 07/12/06 blood clot in left leg Hepatitis in other infectious diseases classified elsewhere Hypertension PMH - PAST MEDICAL HISTORY OF DVT DURING Snoring PAST SURGICAL HISTORY Procedure Laterality Date ANESTHESIA ARTHROSCOPIC PROCEDURE ANKLE & FOOT CARDIAC CATHETERIZATION HX fall of 2013 COLONOSCOPY FLX DX W/COLLJ SPEC WHEN PFRMD 11/16/2011 5 yr repeat due to family history of colon cancer COLONOSCOPY FLX DX W/COLLJ SPEC WHEN PFRMD 03/31/2017 Colonoscopy ENDOMETRIAL BX W/WO ENDOCERVIX BX W/O DILAT SPX 06/18/06 LAPS ABD PRTM&OMENTUM DX W/WO SPEC BR/WA SPX Laparoscopy, laser PAST SURGICAL HISTORY OF 11/22/2006 [place] PAST SURGICAL HISTORY OF 2004 left bunionectomy UTERINE ARTERY EMBOLIZ 08/2009 Current Outpatient Medications Medication Sig methotrexate 2.5 mg tablet folic acid 1 mg tablet omeprazole (PRILOSEC) 20 mg capsule Take 20 mg by mouth once daily. SIMVASTATIN ORAL Take 20 mg by mouth. LISINOPRIL ORAL Take 20 mg by mouth once daily. ASPIRIN LOW DOSE ORAL Take by mouth. hydroxychloroquine sulfate(PLAQUENIL 200 MG TAB) Take one(1) tablet twice daily. MULTIVITAMIN TAB Take one(1) tablet daily. CALCIUM 500 MG TAB No current facility-administered medications for this visit. ALLERGIES: Patient has no known allergies. PERSONAL HISTORY: Social History Tobacco Use Smoking status: Never Smokeless tobacco: Never Vaping Use Vaping Use: Never used Substance Use Topics Alcohol use: Yes Comment: ocas glass of wine Drug use: No FAMILY HISTORY: FAMILY HISTORY Problem Relation Age of Onset Cancer Mother colon other (pulmonary fibrosis) Mother other (back surgery) Mother Hypertension Father Prostate Cancer Father Stroke Father Colon Cancer Father other (triple bypass) Father PR x 2 other (near kidney/liver failure) Father Emphysema Brother Cancer Maternal Grandmother Breast Cancer Colon Cancer Maternal Grandmother Stroke Paternal Grandmother Heart Paternal Grandfather Cancer Maternal Aunt Abdominal Cancer ??etiology REVIEW OF SYMPTOMS: The review of systems data was entered by the nurse and reviewed by id Nursing Notes: Mary Deutsch RN 03/08/2022 8:12 AM Signed REVIEW OF SYSTEMS: General: The patient denies fatigue, denies weight loss, denies weight gain, denies feeling hot, and denies feelings of cold. Eyes: The patient denies glaucoma, denies eye injury/surgery, wears glasses or contacts. Ear/Nose/Throat: The patient denies allergies, denies hayfever, denies ear infections, and denies bloody noses. Cardiovascular: The patient NOTES chest pain, NOTES heart disease, NOTES high blood pressure,denies cardiac stent, denies prior heart attack, denies irregular heart beat, NOTES high cholesterol, denies poor circulation, denies heart failure, other cardiac issues, denies claudication, denies cold feet, denies peripheral arterial stent. Respiratory: The patient denies tuberculosis, denies pneumonia, denies frequent cough, denies pulmonary embolism, denies shortness of breath, and denies coughing up blood. Gastrointestinal: The patient denies difficulty swallowing, denies acid reflux, denies ulcers, denies vomiting, denies jaundice/hepatitis, denies gallbladder problems, denies black or tarry stools, denies hemorrhoids, denies bleeding from rectum, denies diverticulitis, denies constipation, denies diarrhea, denies loss of stool control, and denies hernias. Kidney/Bladder: The patient denies kidney stones, denies urine infections, and denies bloody urine. Skin: The patient denies a history of skin cancer, denies bleeding/changing moles, and denies a history of skin rash. Neurologic: The patient denies a history of epilepsy/convulsions, denies headaches, denies head/spinal injuries, and denies stroke/TIA. Psychiatric: The patient denies psychiatric medications, denies depression, and denies voices, denies substance abuse. Endocrine: The patient denies thyroid disorders, denies diabetes, and denies hormonal problems. Hematologic: The patient denies a history of bruising, denies bleeding, and denies anemia, NOTES blood clots. Infections: The patient denies a history of measles and mumps, denies rheumatic fever, and denies sexually transmitted diseases. Musculoskeletal: The patient NOTES back pain/injury, denies back problems, denies sciatica, denies knee/foot trouble, NOTES arthritis, or denies gout. When was patient's last Mammogram screening? 2020 Last Colonoscopy: 2016 Mary Deutsch RN I have confirmed and edited as necessary, the PFSH and ROS obtained by others. Diane Reynoso PA-C PHYSICAL EXAMINATION: General: The patient is 62 year old female, well nourished, well hydrated in no acute distress. The patient is oriented to time, place, and person. VITALS: Blood pressure 114/70, pulse 77, temperature 36.1 C (96.9 F), height 167.6 cm (5' 6 ), weight 87.4 kg (192 lb 9.6 oz), last menstrual period 09/14/2006, SpO2 100 %. Body mass index is 31.09 kg/m . HEENT: Normal cephalic, ataumatic, pupils are equally round, sclera are anicteric, mucous membranes are moist, oropharynx is clear. Neck has no masses, asymmetry or lymphadenopathy. Respiratory: Clear to auscultation and percussion. Normal respiratory excursion and pattern. Cardiac: Examination is regular rate and rhythm. Normal S1/S2 Abdominal exam: Soft, nontender, with no palpable masses. No hepatosplenomegaly. No palpable hernias. Extremities: no clubbing, cyanosis or edema. No adenopathy. LABORATORY VALUES: As Noted RADIOLOGIC STUDIES: As Noted Assessment IMPRESSION: family history of colon cancer. Tortuous colon PLAN: I have reviewed my findings with the surgeon. Will plan for lower endoscopy. We discussed the risks and benefits of the planned endoscopy with MAC. I have informed the patient that complications can occur including failure to complete the endoscopy and perforation. The patient had the opportunity to ask questions concerning the planned endoscopy. My staff has also explained the procedure to the patient in understandable terms and has given the patient printed material concerning the procedure. The patient freely consents to surgery. The patient was offered a surgery/procedure at a [facility] facility. I have counseled the patient regarding the risk of exposure to and/or potential harm posed by the COVID-19 virus with having a surgery/procedure at this time versus the risk of delaying the surgery/procedure. It is not possible to know either the risk of delaying the surgery or procedure or chance of getting an infection with perfect accuracy, but a joint decision was made between the patient and myself to proceed at this time with endoscopy. I plan to use Golytely bowel preparation Patient to remain on routine meds including her aspirin for the procedure We will plan for Monitored Anesthetic Care. Recommended per surgeon for patient comfort d/t tortuous colon Diagnoses: (Z12.11) Encounter for screening for malignant neoplasm of colon (primary encounter diagnosis) (Z80.0) Family history of colon cancer (Q43.8) Tortuous colon Consultation requested by Dr. Anders for an opinion regarding screening colonoscopy. My final recommendations will be communicated back to the requesting physician by way of shared Medical record or letter to requesting physician via US mail. Diane Reynoso PA-C documented in this encounter [facility] 03-08-2022 Nurse Note REVIEW OF SYSTEMS: General: The patient denies fatigue, denies weight loss, denies weight gain, denies feeling hot, and denies feelings of cold. Eyes: The patient denies glaucoma, denies eye injury/surgery, wears glasses or contacts. Ear/Nose/Throat: The patient denies allergies, denies hayfever, denies ear infections, and denies bloody noses. Cardiovascular: The patient NOTES chest pain, NOTES heart disease, NOTES high blood pressure,denies cardiac stent, denies prior heart attack, denies irregular heart beat, NOTES high cholesterol, denies poor circulation, denies heart failure, other cardiac issues, denies claudication, denies cold feet, denies peripheral arterial stent. Respiratory: The patient denies tuberculosis, denies pneumonia, denies frequent cough, denies pulmonary embolism, denies shortness of breath, and denies coughing up blood. Gastrointestinal: The patient denies difficulty swallowing, denies acid reflux, denies ulcers, denies vomiting, denies jaundice/hepatitis, denies gallbladder problems, denies black or tarry stools, denies hemorrhoids, denies bleeding from rectum, denies diverticulitis, denies constipation, denies diarrhea, denies loss of stool control, and denies hernias. Kidney/Bladder: The patient denies kidney stones, denies urine infections, and denies bloody urine. Skin: The patient denies a history of skin cancer, denies bleeding/changing moles, and denies a history of skin rash. Neurologic: The patient denies a history of epilepsy/convulsions, denies headaches, denies head/spinal injuries, and denies stroke/TIA. Psychiatric: The patient denies psychiatric medications, denies depression, and denies voices, denies substance abuse. Endocrine: The patient denies thyroid disorders, denies diabetes, and denies hormonal problems. Hematologic: The patient denies a history of bruising, denies bleeding, and denies anemia, NOTES blood clots. Infections: The patient denies a history of measles and mumps, denies rheumatic fever, and denies sexually transmitted diseases. Musculoskeletal: The patient NOTES back pain/injury, denies back problems, denies sciatica, denies knee/foot trouble, NOTES arthritis, or denies gout. When was patient's last Mammogram screening? 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/22/2012 documented as of this encounter (statuses as of 03/31/2022) [facility]02-27-2007 History of Past illness Narrative* Problem Noted Date Resolved Date Embolism and thrombosis of unspecified site 06/1709/22/2012 Overview: blood clot in right leg Leiomyoma of uterus, unspecified 06/18/2005 09/22/2012 Irregular menstrual cycle 06/18/20052012 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 09/22/2012 documented as of this encounter (statuses as of 04/01/2022) [facility]-27-2007 History of Past illness Narrative* Problem Noted Date Resolved Date Embolism and thrombosis of unspecified site 06/1709/22/2012 Overview: blood clot in right leg Leiomyoma of uterus, unspecified 06/18/2005 09/22/2012 Irregular menstrual cycle 06/18/20052012 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 09/22/2012 documented as of this encounter (statuses as of 04/03/2022) [facility]-27[facility]2007 History of Past illness Narrative* Problem Noted Date Resolved Date Embolism and thrombosis of unspecified site 06/1709/22/2012 Overview: blood clot in right leg Leiomyoma of uterus, unspecified 06/18/2005 09/22/2012 Irregular menstrual cycle 06/18/20052012 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 09/22/2012 documented as of this encounter (statuses as of 07/22/2022) [place] [address]-27-2007 History of Past illness Narrative* Problem Noted Date Diagnosed Date Resolved Date Embolism and thrombosis of unspecified site 07/12/2006 09/22/2012 Overview: blood clot in right leg Leiomyoma of uterus, unspecified 06/18/2005 09/22/2012 Irregular menstrual cycle 06/18/2005 Iron deficiency anemia secon alesia to blood loss (chronic) 06/18/2005 09/22/2012 documented as of this encounter (statuses as of 03/20/2023) [place] [address]-27-2007 History of Past illness Narrative* Problem Noted Date Diagnosed Date Resolved Date Embolism and thrombosis of unspecified site 07/12/2006 09/22/2012 Overview: blood clot in right leg Leiomyoma of uterus, unspecified 06/18/2005 09/22/2012 Irregular menstrual cycle 06/18/2005 Iron deficiency anemia secon alesia to blood loss (chronic) 06/18/2005 09/22/2012 documented as of this encounter (statuses as of 04/14/2023) [place] [address]-27-2007 History of Past illness Narrative* Problem Noted Date Diagnosed Date Resolved Date Embolism and thrombosis of unspecified site 07/12/2006 09/22/2012 Overview: blood clot in right leg Leiomyoma of uterus, unspecified 06/18/2005 09/22/2012 Irregular menstrual cycle 06/18/2005 Iron deficiency anemia secon alesia to blood loss (chronic) 06/18/2005 09/22/2012 documented as of this encounter (statuses as of 04/14/2023) [facility] History of Past illness Narrative* Problem Noted Date Diagnosed Date Resolved Date Embolism and thrombosis of unspecified site 07/12/2006 09/22/2012 Overview: blood clot in right leg Leiomyoma of uterus, unspecified 06/18/2005 09/22/2012 Irregular menstrual cycle 06/18/2005 Iron deficiency anemia secon alesia to blood loss (chronic) 06/18/2005 09/22/2012 documented as of this encounter (statuses as of 04/16/2023) [facility] note* Diagnosis Encounter for screening for malignant neoplasm of colon- Primary Special screening for malignant neoplasms, colon Family history of colon cancer Family history of malignant neoplasm of gastrointestinal tract Tortuous colon Volvulus [facility] Diagnosis Family history of colon cancer- Primary Family history of malignant neoplasm of gastrointestinal tract documented in this encounter [facility] note* Diagnosis Encounter for gynecological examination (general) (routine) without abnormal findings- Primary Encounter for screening mammogram for breast cancer Obesity, Class I, BMI 30-34.9 Obesity, unspecified documented in this encounter [facility] note* Diagnosis Encounter for gynecological examination (general) (routine) without abnormal findings Encounter for screening mammogram for breast cancer documented in this encounter [facility] note* Diagnosis Encounter for gynecological examination (general) (routine) without abnormal findings- Primary Encounter for screening mammogram for breast cancer documented in this encounter [facility] note* Diagnosis Encounter for screening mammogram for breast cancer documented in this encounter [facility] for referral (narrative)* Outpatient Procedure (Routine) - Closed Specialty Diagnoses / Procedures Referred By Иван t Referred To Contact [facility] Diagnoses Family history of colon cancer Procedures COLONOSCOPY SCREENING COLONOSCOPY SCREENING COLONOSCOPY FLX DX W/COLLJ SPEC WHEN PFRMD Joelle Casas MD [address] [place] [address] [facility] [address] [place] [address] Referral ID Status Reason Start Date Expiration Date V isits Requested Visits Authorized [id number] Closed Auto-Generate d Referral 03/08/2022 03/08/2023 1 1 [facility] for referral (narrative)* Diagnostic Procedure Only (Routine) - Pending Review Specialty Diagnoses / Procedures Referred By Иван christine Referred To Contact [facility] Diagnoses Encounter for screening mammogram for breast cancer Procedures ROSIE SCREENING W NICOLLE SCREENING DIGITAL BREAST TOMOSYNTHESIS BI SCREENING MAMMOGRAPHY BI 2-VIEW BREAST INC Franci Cruz MD [address] [place] [address] [facility] [address] [place] [address] Referral ID Status Reason Start Date Expiration Date Visits Requested Visits Authorized [id number] Pending Review Auto-Generat ed Referral 05/01/2023 1 1 [facility] for referral (narrative)* Diagnostic Procedure Only (Routine) - Closed Specialty Diagnoses / Procedures Referred By Иван christine Referred To Contact [facility] Diagnoses Encounter for gynecological examination (general) (routine) without abnormal findings Encounter for screening mammogram for breast cancer Procedures ROSIE SCREENING SCREENING MAMMOGRAPHY BI 2-VIEW BREAST INC Franci Cruz MD [address] [place] [address] [facility] [address] [place] [address] Referral ID Status Reason Start Date Expiration Date V isits Requested Visits Authorized [id number] Closed Auto-Generate d Referral 04/01/2022 05/15/2022 1 1 [facility] for referral (narrative)* Diagnostic Procedure Only (Routine) - Pending Review Specialty Diagnoses / Procedures Referred By Иван christine Referred To Contact [facility] Diagnoses Encounter for gynecological examination (general) (routine) without abnormal findings Encounter for screening mammogram for breast cancer Procedures ROSIE SCREENING SCREENING MAMMOGRAPHY BI 2-VIEW BREAST INC Franci Cruz MD [address] [place] [address] [facility] [address] [place] [address] Referral ID Status Reason Start Date Expiration Date Visits Requested Visits Authorized [id number] Pending Review Auto-Generat ed Referral 3 05/12/2024 1 1 [facility] for visit Narrative* Diagnostic Procedure Only (Routine) - Closed Specialty Diagnoses / Procedures Referred By Иван christine Referred To Contact [facility] Diagnoses Encounter for gynecological examination (general) (routine) without abnormal findings Encounter for screening mammogram for breast cancer Procedures ROSIE SCREENING SCREENING MAMMOGRAPHY BI 2-VIEW BREAST INC Franci Cruz MD [address] [place] [address] [facility] [address] [place] [address] Referral ID Status Reason Start Date Expiration Date V isits Requested Visits Authorized [id number] Closed Auto-Generate d Referral 04/01/2022 05/15/2022 1 1 [facility] for visit Narrative* Diagnostic Procedure Only (Routine) - Closed Specialty Diagnoses / Procedures Referred By Иван christine Referred To Contact [facility] Diagnoses Encounter for screening mammogram for breast cancer Procedures ROSIE SCREENING W NICOLLE SCREENING DIGITAL BREAST TOMOSYNTHESIS BI SCREENING MAMMOGRAPHY BI 2-VIEW BREAST INC Franci Cruz MD [address] [place] [address] [facility] [address] [place] [address] Referral ID Status Reason Start Date Expiration Date V isits Requested Visits Authorized [id number] Closed Auto-Generate d Referral 04/01/2022 05/01/2023 1 0 [facility] Summary Purpose Family History No Family History Records FoundNo Family History Records Found Advance Directives No Advanced Directives Records FoundNo Advanced Directives Records Found Additional Source Comments Source Comments (unrecognize d section and content) In the event this informatio n is protected by the Federal Confidentiality of Alcohol and Drug Abuse Patient Records regulations: The Federal rules restrict any use of the information to criminally investigate or prosecute any alcohol or drug abuse patient.[facility] the event this information is protected by the Federal Confidentiality of Alcohol and Drug Abuse Patient Records regulations: The Federal rules restrict any use of the information to criminally investigate or prosecute any alcohol or drug abuse patient.[facility] the event this information is protected by the Federal Confidentiality of Alcohol and Drug Abuse Patient Records regulations: The Federal rules restrict any use of the information to criminally investigate or prosecute any alcohol or drug abuse patient.[facility] the event this information is protected by the Federal Confidentiality of Alcohol and Drug Abuse Patient Records regulations: The Federal rules restrict any use of the information to criminally investigate or prosecute any alcohol or drug abuse patient.[facility] the event this information is protected by the Federal Confidentiality of Alcohol and Drug Abuse Patient Records regulations: The Federal rules restrict any use of the information to criminally investigate or prosecute any alcohol or drug abuse patient.[facility] the event this information is protected by the Federal Confidentiality of Alcohol and Drug Abuse Patient Records regulations: The Federal rules restrict any use of the information to criminally investigate or prosecute any alcohol or drug abuse patient.[facility] the event this information is protected by the Federal Confidentiality of Alcohol and Drug Abuse Patient Records regulations: The Federal rules restrict any use of the information to criminally investigate or prosecute any alcohol or drug abuse patient.[facility] the event this information is protected by the Federal Confidentiality of Alcohol and Drug Abuse Patient Records regulations: The Federal rules restrict any use of the information to criminally investigate or prosecute any alcohol or drug abuse patient.[facility] the event this information is protected by the Federal Confidentiality of Alcohol and Drug Abuse Patient Records regulations: The Federal rules restrict any use of the information to criminally investigate or prosecute any alcohol or drug abuse patient.[facility] Reason for Visit (unrecogniz ed section and content) Specialty Diagnoses / Procedures Referred By Contac t Referred To Contact General Surgery / GENERAL SURGERY Diagnoses COLONOSCOPY RECALL LETTER Procedures NEW DDI PATIENT Self Diane Reynoso PA-C [address] [place] [address] Referral ID Status Reason Start Date Expiration Date Visits Re quested Visits Authorized [id number] Closed 03/08/2022 05/15/2022 1 1 Reason Comments 03/25 COLON LODI Reason Comments Yearly Exam Specialty Diagnoses / Procedures [facility] Diagnoses annual Procedures EST [facility] ANNUAL PATIENT Self Franci Metcalf MD [address] [place] [id number] Referral ID Status Reason Start Date Expiration Date Visits Re quested Visits Authorized [id number] Closed 04/01/2022 05/15/2022 1 1 Reason Comments Results Specialty Diagnoses / Procedures [facility] To Contact [facility] Diagnoses Encounter for gynecological examination (general) (routine) without abnormal findings Annual exam Procedures WELLNESS EXAMS EST 40-64 YRS EST [facility] ANNUAL PATIENT Self Franci Metcalf MD [address] [place] [address] Referral ID Status Reason Start Date Expiration Date Visits Re quested Visits Authorized [id number] Closed 03/28/2023 05/15/2023 1 1 Care Teams (unrecognized sec tion and content) 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 Relationship Specialty Start Date End Date Bryanna Anders [address] [place] [address] PCP - General 08/13/03 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 Relationship Specialty Start Date End Date Bryanna Anders [address] [place] [address] PCP - General 08/13/03 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 Relationship Specialty Start Date End Date Bryanna Anders [address] [place] [address] PCP - General 08/13/03 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 Relationship Specialty Start Date End Date Bryanna Anders [address] [place] [address] PCP - General 08/13/03 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 Relationship Specialty Start Date End Date Bryanna Anders [address] [place] [address] PCP - General 08/13/03 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 Relationship Specialty Start Date End Date Bryanna Anders [address] [place] [address] PCP - General 08/13/03 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 This clinical summary was aggregated from multiple sources. Caution should be exercised in using it in the provision of clinical care. This summary normalizes information from multiple sources, and as a consequence, information in this document may materially change the coding, format and clinical context of patient data. In addition, data may be omitted in some cases. CLINICAL DECISIONS SHOULD BE BASED ON THE PRIMARY CLINICAL RECORDS. [employer]. provides no warranty or guarantee of the accuracy or completeness of information in this document.
[2023-06-13 15:22] LABS: ALB/GLOB Ratio 1.1 RATIO (0.9-2.4); AST(SGOT) 33 U/L (15-37); Alanine Aminotransfer ALT/SGPT 32 U/L (13-56); Albumin, Serum 3.3 g/dL (3.2-5.0); Alkaline Phosphatase 97 U/L (45-117); Anion Gap 4 (5-15); BUN 16 mg/dL (7-18); BUN/Creat Ratio 26.3 RATIO (10-20); Calcium,Total 8.9 mg/dL (8.5-10.1); Chloride 105 mmol/L (98-107); Creatinine, Serum 0.61 mg/dL (0.55-1.02); EST Glomerular Filtration Rate 106 mL/min (>60); Est Glom Filt Rate - Afr Amer 128 mL/min (>60); Globulin 3.1 g/dL (2.2-4.2); Glucose 78 mg/dL (74-106); Potassium 3.7 mmol/L (3.5-5.1); Protein, Total 6.4 g/dL (6.4-8.2); Sodium Level 138 mmol/L (136-145)
== END | disposition home or self-care (01) ==
PROVIDERS: PCP Family Medicine; Referring Provider Internal Medicine Rheumatology; Visit Provider Internal Medicine Rheumatology
DX: M06.4 Inflammatory polyarthropathy (principal); Z79.899 Other long term (current) drug therapy
CPT/HCPCS: 36415; 80053

== ENCOUNTER → 2023-09-06 | Outpatient (CLI) | payer OTHER, SELFPAY ==
[2023-09-06 17:37] LABS: Absolute Neutrophil Count 3.1 X10^3/uL (2.0-7.7); Basophil# 0.05 X10^3/uL; Eosinophil# 0.25 X10^3/uL; Eosinophils% 4.9 % (0-5); Hematocrit 39.7 % (37-47); Hemoglobin 13.2 g/dL (12.0-15.0); Lymphocyte % 23.4 % (19-41); Mean Corp Hgb Conc 33.2 g/dL (32-36); Mean Corpuscular Hgb 31.1 pg (27.0-32.0); Mean Corpuscular Volume 93.4 fL (81-99); Mean Platelet Vol. 9.7 fl (6.2-12.0); Monocyte# 0.47 X10^3/uL; Monocyte% 9.2 % (0-10); NRBC Flagged by Analyzer 0 % (0-5); Neutrophil # 3.14 X10^3/uL (2.7-7.7); Neutrophil % 61.3 % (47-70); Platelet Count 256 K/mm3 (150-450); RBC Distribution Width CV 12.4 % (11.6-14.6); RBC Distribution Width SD 42.3 fl (35.1-43.9); Red Blood Count 4.25 M/mm3 (4.2-5.4); White Blood Count 5.1 K/mm3 (4.4-11.0)
[2023-09-06 19:22] LABS: ALB/GLOB Ratio 0.9 RATIO (0.9-2.4); AST(SGOT) 30 U/L (15-37); Alanine Aminotransfer ALT/SGPT 28 U/L (13-56); Albumin, Serum 3.1 g/dL (3.2-5.0); Alkaline Phosphatase 105 U/L (45-117); Anion Gap 4 (5-15); BUN 15 mg/dL (7-18); BUN/Creat Ratio 19.8 RATIO (10-20); Calcium,Total 9.1 mg/dL (8.5-10.1); Chloride 106 mmol/L (98-107); Creatinine, Serum 0.76 mg/dL (0.55-1.02); EST Glomerular Filtration Rate 82 mL/min (>60); Est Glom Filt Rate - Afr Amer 99 mL/min (>60); Globulin 3.4 g/dL (2.2-4.2); Glucose 74 mg/dL (74-106); Potassium 3.6 mmol/L (3.5-5.1); Protein, Total 6.5 g/dL (6.4-8.2); Sodium Level 141 mmol/L (136-145)
== END | disposition home or self-care (01) ==
LOC: MTLAB 14:08
PROVIDERS: PCP Family Medicine; Referring Provider Internal Medicine Rheumatology; Visit Provider Internal Medicine Rheumatology
DX: M06.4 Inflammatory polyarthropathy (principal); I10 Essential (primary) hypertension; E78.5 Hyperlipidemia, unspecified; Z79.899 Other long term (current) drug therapy
CPT/HCPCS: 36415; 80053; 85025

== ENCOUNTER → 2023-09-07 | Outpatient (CLI) | payer OTHER, SELFPAY ==
--- NOTE | 2023-09-07 10:51 | VDLE_ITS ---
Reason For Study: LLE PAIN RIGHT LEFT CFV is compressible, spontaneous, phasic, GSV is normal. competent and demonstrates normal CFV is compressible, spontaneous, phasic, augmentation. competent, and demonstrates normal Procedure augmentation. This is a venous duplex using B-mode, color FV is compressible, spontaneous, phasic, flow and spectral Doppler. competent and demonstrates normal Exam performed in department. augmentation. The exam was diagnostic. POP V is compressible, spontaneous, and A preliminary report was called and/or faxed phasic. to Lashawn Dahl. T/P Trunk is compressible. PTV is compressible. Acute deep vein thrombosis is noted in the Per V. It is dilated and NONCOMPRESSIBLE. Acute deep vein thrombosis is noted in the SOLEAL V. It is dilated and NONCOMPRESSIBLE. VL/Venous Duplex US, Unilateral Interpretation Summary Acute deep venous thrombosis left peroneal and soleus veins Patent and compressible left great saphenous vein Normal flow patterns right common femoral vein Ordering Physician: Lashawn Dahl Referring Physician: Bryanna Kathleen Performed By: Herber Buck RVT
== END | disposition home or self-care (01) ==
LOC: CVS 10:49
PROVIDERS: PCP Family Medicine; Referring Provider Nurse Practitioner Gerontology; Visit Provider Nurse Practitioner Gerontology
DX: M79.605 Pain in left leg (principal); Z86.718 Personal history of other venous thrombosis and embolism
CPT/HCPCS: 93971

== ENCOUNTER → 2023-12-06 | Outpatient (CLI) | payer OTHER, SELFPAY ==
[2023-12-06 15:10] LABS: Absolute Lymphocyte Count 1.25 X10^3/uL (0.83-4.51); Absolute Neutrophil Count 2.9 X10^3/uL (2.0-7.7); Basophil# 0.05 X10^3/uL; Eosinophil# 0.23 X10^3/uL; Eosinophils% 4.7 % (0-5); Hematocrit 38.3 % (37-47); Lymphocyte # 1.25 X10^3/ul (0.83-4.51); Lymphocyte % 25.6 % (19-41); Mean Corp Hgb Conc 33.9 g/dL (32-36); Mean Corpuscular Hgb 31.6 pg (27.0-32.0); Mean Corpuscular Volume 93.2 fL (81-99); Mean Platelet Vol. 9.9 fl (6.2-12.0); Monocyte# 0.39 X10^3/uL; NRBC Flagged by Analyzer 0 % (0-5); Neutrophil # 2.94 X10^3/uL (2.7-7.7); Neutrophil % 60.3 % (47-70); Platelet Count 299 K/mm3 (150-450); RBC Distribution Width CV 12.2 % (11.6-14.6); RBC Distribution Width SD 42.1 fl (35.1-43.9); Red Blood Count 4.11 M/mm3 (4.2-5.4); White Blood Count 4.9 K/mm3 (4.4-11.0)
[2023-12-06 15:31] LABS: AST(SGOT) 31 U/L (15-37); Alanine Aminotransfer ALT/SGPT 29 U/L (13-56); Albumin, Serum 3.1 g/dL (3.2-5.0); Alkaline Phosphatase 100 U/L (45-117); Anion Gap 5 (5-15); BUN 11 mg/dL (7-18); BUN/Creat Ratio 17.8 RATIO (10-20); Calcium,Total 9.1 mg/dL (8.5-10.1); Chloride 106 mmol/L (98-107); Creatinine, Serum 0.62 mg/dL (0.55-1.02); EST Glomerular Filtration Rate 104 mL/min (>60); Est Glom Filt Rate - Afr Amer 126 mL/min (>60); Globulin 3.2 g/dL (2.2-4.2); Glucose 88 mg/dL (74-106); Potassium 3.9 mmol/L (3.5-5.1); Protein, Total 6.3 g/dL (6.4-8.2); Sodium Level 140 mmol/L (136-145)
== END | disposition home or self-care (01) ==
LOC: MTLAB 13:09
PROVIDERS: PCP Family Medicine; Referring Provider Internal Medicine Rheumatology; Visit Provider Internal Medicine Rheumatology
DX: M06.4 Inflammatory polyarthropathy (principal); Z79.899 Other long term (current) drug therapy
CPT/HCPCS: 36415; 80053; 85025

== ENCOUNTER → 2023-12-08 | Outpatient (CLI) | payer OTHER, SELFPAY ==
--- NOTE | 2023-12-08 10:48 | VDLE_ITS ---
Reason For Study: LLE DVT RIGHT LEFT CFV is compressible, spontaneous, phasic, GSV is normal. competent and demonstrates normal CFV is compressible, spontaneous, phasic, augmentation. competent, and demonstrates normal Procedure augmentation. This is a venous duplex using B-mode, color FV is compressible, spontaneous, phasic, flow and spectral Doppler. competent and demonstrates normal Exam performed in department. augmentation. The exam was diagnostic. POP V is compressible, spontaneous, phasic, A preliminary report was called and/or faxed competent and demonstrates normal to Lashawn Dahl [employer]. augmentation. T/P Trunk is compressible. PTV is compressible. LT PerV is compressible. Soleus V is compressible. Previous DVT from 09/07/23 has resolved. VL/Venous Duplex US, Unilateral Interpretation Summary There is no evidence of left lower extremity deep vein thrombosis. Left great s aphenous vein appears patent and compressible segmentally. Resolved left soleus DVT Normal flow patterns right common femoral vein Ordering Physician: Lashawn Dahl Referring Physician: Lashawn Dahl Performed By: Reuben Stoddard RVT
== END | disposition home or self-care (01) ==
LOC: CVS 10:47
PROVIDERS: PCP Family Medicine; Referring Provider Nurse Practitioner Gerontology; Visit Provider Nurse Practitioner Gerontology
DX: Z86.718 Personal history of other venous thrombosis and embolism (principal)
CPT/HCPCS: 93971

== ENCOUNTER → 2024-02-24 | Outpatient (CLI) | payer OTHER, SELFPAY ==
[2024-02-24 15:11] LABS: Absolute Lymphocyte Count 1.18 X10^3/uL (0.83-4.51); Absolute Neutrophil Count 3.7 X10^3/uL (2.0-7.7); Basophil# 0.05 X10^3/uL; Basophil% 0.8 % (0-1); Eosinophil# 0.29 X10^3/uL; Eosinophils% 4.8 % (0-5); Hematocrit 37.8 % (37-47); Hemoglobin 12.6 g/dL (12.0-15.0); Lymphocyte # 1.18 X10^3/ul (0.83-4.51); Lymphocyte % 19.7 % (19-41); Mean Corp Hgb Conc 33.3 g/dL (32-36); Mean Corpuscular Hgb 30.8 pg (27.0-32.0); Mean Corpuscular Volume 92.4 fL (81-99); Mean Platelet Vol. 9.7 fl (6.2-12.0); Monocyte% 11.7 % (0-10); NRBC Flagged by Analyzer 0.3 % (0-5); Neutrophil # 3.74 X10^3/uL (2.7-7.7); Neutrophil % 62.5 % (47-70); Platelet Count 312 K/mm3 (150-450); RBC Distribution Width CV 12.3 % (11.6-14.6); RBC Distribution Width SD 41.3 fl (35.1-43.9); Red Blood Count 4.09 M/mm3 (4.2-5.4)
[2024-02-24 15:39] LABS: AST(SGOT) 27 U/L (15-37); Alanine Aminotransfer ALT/SGPT 27 U/L (13-56); Albumin, Serum 3.2 g/dL (3.2-5.0); Alkaline Phosphatase 103 U/L (45-117); Anion Gap 4 (5-15); BUN 14 mg/dL (7-18); BUN/Creat Ratio 21.6 RATIO (10-20); Calcium,Total 9.7 mg/dL (8.5-10.1); Chloride 106 mmol/L (98-107); Creatinine, Serum 0.65 mg/dL (0.55-1.02); EST Glomerular Filtration Rate 98 mL/min (>60); Est Glom Filt Rate - Afr Amer 119 mL/min (>60); Globulin 3.1 g/dL (2.2-4.2); Glucose 98 mg/dL (74-106); Potassium 3.6 mmol/L (3.5-5.1); Protein, Total 6.3 g/dL (6.4-8.2); Sodium Level 140 mmol/L (136-145)
== END | disposition home or self-care (01) ==
LOC: MTLAB 13:43
PROVIDERS: PCP Family Medicine; Referring Provider Internal Medicine Rheumatology; Visit Provider Internal Medicine Rheumatology
DX: M06.4 Inflammatory polyarthropathy (principal); Z79.899 Other long term (current) drug therapy
CPT/HCPCS: 36415; 80053; 85025

== ENCOUNTER → 2024-03-13 | Outpatient (CLI) | payer OTHER, SELFPAY ==
--- OUTSIDE RECORDS SUMMARY | 2024-03-13 14:16 | XMS RPT_ITS | CCD ---
Author Organization [facility] Inform ion Partnership [facility] Care Team Providers Care Qa Tech Name Role Phone SURI Gee, Solange Cooney Unavailable UnavailClaudia Lanza Unavailable Unavailable Salvador Alcantar Unavailable Unavailable Roof REGISTERED DENTAL ASSISTANT, Titi Villa Unavailable SURI Gee, Solange Cooney Unavailable Unavailpritesh Gee RN, Solange Cooney Unavailable UnavailBrett Wiley Primary Care Provider PAMELLA TRUJILLO Attending Unavailable JOELLE CASAS Referring Unavailable BRETT ANDERS Primary Care Unavailable Brett Anders Primary Care Provider Brett Anders Primary Care Provider BRETT ANDERS Primary Care Unavailable FRANCI METCALF Attending Unavailable BRETT ANDERS Primary Care Unavailable FRANCI METCALF Referring Unavailable Medications Current Medications Medication Drug Class(es) Dates Sig (Normalized) Sig (Original) polyethylene glycol 3350 399447 mg / potassium chloride 2970 mg / sodium bicarbonate 6740 mg / sodium chloride 5860 mg / sodium sulfate 96170 mg powder for oral solution (1 source) Osmotic Laxative Start: 03-08-2022 End: 03-08-2022 peg 3350-Electrolytes (GOLYTELY) 236-22.74-6.74 -5.86 gram suspension Take 4,000 mL by mouth one time only for 1 dose. 1 Each 0 03/08/2022 03/08/2022 Active Comment on above: Take 4,000 mL by juany th one time only for 1 dose. Completed/Discontinued Medications Medication Drug Class(es) Dates Sig (Normalized) Sig (Original) aspirin 81 mg oral tablet (20 sources) Nonsteroidal Anti-inflammatory Drug Start: 02-15-2014 take 1 tablet by mouth once daily ASPIRIN 81 MG TABS One tablet by mouth daily ASPIRIN [id number] Joanna Falcon RN Start: 02-15-2014 take 1 tablet by juany th once daily ASPIRIN 81 MG TABS One tablet by mouth daily ASPIRIN [id number] Joanna Falcon RN Start: 02-15-2014 take 1 tablet by juany th once daily ASPIRIN EC 81 MG TBEC One tablet by mouth daily ASPIRIN [id number] Marjorie Leahy RN ASPIRIN LOW DOSE ORAL Take by mouth. 0 Active Comment on above: Take by mouth. betamethasone 0.5 mg/ml topical cream (7 sources) Corticosteroid Start: 03-30-20 22 betamethasone dipropionate (DIPROSONE) 0.05 % cream Apply to affected area twice daily. APPLY TO AFFECTED AREA 0 03/30/2022 Active Comment on above: Apply to affected ar ea twice daily. APPLY TO AFFECTED AREA Calcium (9 sources) Phosphate Binder, Calcium Start: 04-29-20 05 CALCIUM 500 MG TAB CALCIUM-VITAMIN D-VITAMIN K CHEW (6 sources) Start: 02-16-20 14 take 1 tablet by mouth once daily VIACTIV CHEW One tablet by mouth daily CALCIUM-VITAMIN D-VITAMIN K CHEW [id number] Joanna Falcon RN Start: 02-15-2014 take 1 tablet by juany th once daily VIACTIV CHEW One tablet by mouth daily CALCIUM-VITAMIN D-VITAMIN K CHEW [id number] Joanna Falcon RN fluticasone propionate 0.05 mg/actuat metered dose nasal spray (7 sources) Corticosteroid Start: 03-09-2022 fluticasone (FLONASE) 50 mcg/actuation nasal spray 2 Sprays once daily. 0 03/09/2022 Active Comment on above: 2 Sprays once daily. folic acid 1 mg oral tablet (8 sources) Start: 12-30-2021 folic acid 1 mg tablet hydroxychloroquine sulfate 200 mg oral tablet (20 sources) Antirheumatic Agent Start: 11-13-2008 hydroxychloroquine sulfate(PLAQUENIL 200 MG TAB) Take one(1) tablet twice daily. 0 0 11/13/2008 Active Comment on above: Take one(1) tablet t wice daily. lisinopril 20 mg oral tablet (20 sources) Angiotensin Converting Enzyme Inhibitor Start: 02-15-2014 take 1 tablet by mouth once daily LISINOPRIL 20 MG TABS One tablet by mouth daily LISINOPRIL [id number] Joanna Falcon RN Comment on above: Take 20 mg by mouth once daily. meloxicam 7.5 mg oral tablet (20 sources) Nonsteroidal Anti-inflammatory Drug Start: 02-15-2014 take 1 tablet by mouth once daily MELOXICAM 7.5 MG TABS One tablet by mouth daily MELOXICAM [id number] Joanna Falcon RN Start: 02-15-2014 MELOXICAM 7.5 MG TABS one tablet every five days. MELOXICAM [id number] Timo Araiza MD Start: 02-15-2014 MELOXICAM 7.5 MG TABS every other day MELOXICAM [id number] Timo Araiza MD methotrexate 2.5 mg oral tablet (8 sources) Folate Analog Metabolic Inhibitor Start: 12-30-2021 methotrexate 2.5 mg tablet MULTIPLE VITAMIN (4 sources) Start: 02-15-2014 take 1 tablet by mouth once daily MULTIVITAMINS CAPS One tablet by mouth daily MULTIPLE VITAMIN 83997812325 Joanna Falcon RN MULTIPLE VITAMIN (2 sources) Start: 02-15-2014 take 1 tablet by mouth once daily MULTIVITAMINS CAPS One tablet by mouth daily MULTIPLE VITAMIN [id number] Joanna Falcon RN Start: 02-15-2014 take 1 tablet by juany th once daily MULTIVITAMINS CAPS One tablet by mouth daily MULTIPLE VITAMIN [id number] Joanna Falcon RN MULTIVITAMIN TAB (9 sources) Start: 04-29-2005 MULTIVITAMIN T AB Take one(1) tablet daily. 0 04/29/2005 Active Comment on above: Take one(1) tablet d aily. omeprazole 20 mg delayed release oral capsule (15 sources) Proton Pump Inhibitor Start: 02-01-2017 take 1 capsule by mouth once daily omeprazole (PRILOSEC) 20 mg capsule Take 20 mg by mouth once daily. 11 02/01/2017 Active Start: 02-15-2014 take 1 tablet by juany th once daily [facility] OMEPRAZOLE 20 MG TBEC One tablet by mouth daily OMEPRAZOLE [id number] Marjorie Jenkins PA-C Start: 02-15-2014 take 1 tablet by juany th once daily [facility] OMEPRAZOLE 20 MG TBEC One tablet by mouth daily OMEPRAZOLE [id number] Marjorie Jenkins PA-C Comment on above: Take 20 mg by mouth once daily. simvastatin 20 mg oral tablet (15 sources) HMG-CoA Reductase Inhibitor Start: 4 take 1 tablet by mouth at bedtime ZOCOR 20 MG TABS One tablet by mouth at bedtime SIMVASTATIN [id number] Marjorie Jenkins PA-C Comment on above: Take 20 mg by mouth. Problems Active Problems Problem Classification Problem Date [...] (current) use of other medications; Translations: [Other custodial (current) drug therapy] Onset: 03-22-2014 Resolved: 11-25-2014 11-25-2014 Episodic Other aftercare (2 sources) Other custodial (current) drug therapy; Translations: [Other custodial (current) drug therapy] Onset: 11-25-2014 11-25-2014 Episodic [...] Results Test Name Value Interpretation Reference Range Facility [facility] 04-14-2023 [facility] HNO ID: [id number] Author: Coordinator, Mammography Service: ? Author Type: Physician Type: Letter Filed: 04/18/2023 11:33 PM Note Text: April 15, 2023 PID: [id number] Serafin Pruett [address] [place] [address] Dear Ms. Pruett, We are pleased to [...] report will be kept on file at [facility] as part of your permanent medical record and are available for your continuing care. Thank you for allowing us to help in meeting your health care needs. Sincerely, Dr. Hdez Interpreting Radiologist [facility] (Normal over 40) Normal [facility] CNOVon 04-13-2023 CNOV Office Visit (OBGYWM ) SERAFIN PRUETT ([id number]) 1960 F Date Time Provider Department 04/13/23 2:20 PM FRANCI METCALF OBGYWM During your visit today, we recorded the following information about you: Blood pressure Weight Height 122/74 91.2 kg 1.651 m Franci Metcalf MD 04/13/2023 2:40 PM Signed Serafin is a 63 year old who presents for an annual gynecologic exam without complaints. Postmenopausal: yes HRT use: No. 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 LMP: 09/14/2006, Ablation Age at Menarche: Age at First : Age at Menopause: Plumber Maintenance History Comments: Sexual Activity: Yes; Male; husbands vasectomy Contraception: Vasectomy PAST MEDICAL HISTORY Diagnosis Date Arthritis Embolism and thrombosis of unspecified site 07/12/06 blood clot in left leg Hepatitis in other infectious diseases classified elsewhere Hypertension PMH - PAST MEDICAL HISTORY OF DVT DURING Snoring PAST SURGICAL HISTORY Procedure Laterality Date ANESTHESIA ARTHROSCOPIC PROCEDURE ANKLE AND FOOT CARDIAC CATHETERIZATION HX fall COLONOSCOPY FLX [...] Colon Cancer Father other (triple bypass) Father CT x 2 other (near kidney/liver failure) Father [...] external genitalia normal, normal Bartholin's glands, urethra, [place]'s glands, no vulvar lesions, no cervical lesions, [...] or sooner as needed Franci Metcalf MD Referring Provider: SELF [200] Allergies As of Date: 04/13/2023 (No Known Allergies) Date Reviewed: 04/13/2023 Reviewed by: Franci Metcalf MD - Fully Assessed Primary Visit Diagnosis:Encounter for gynecological examination (general) (routine) without abnormal findings [Z01.419] Other Visit Diagnosis:Encounter for screening mammogram for breast cancer [Z12.31] Order(s):ROSIE SCREENING [[id number]] Order #: [id number] FUTURE Prescriptions as of 04/13/2023 - betamethasone dipropionate (DIPROSONE) 0.05 % cream Apply to affected area twice daily. APPLY TO AFFECTED AREA - f (more content not included)... Normal [facility] ROSIE SCREENING W TOMOon 04-13 ROSIE SCREENING W NICOLLE * * *Final Report* * * DATE OF EXAM: Apr 13 2023 2:12PM WRW [id number] - ROSIE SCREENING W NICOLLE / PROCEDURE REASON: Encounter for screening mammogram for breast cancer * * * * Physician Interpretation * * * * RESULT: #[id number] - ROSIE SCREENING W NICOLLE BILATERAL DIGITAL SCREENING MAMMOGRAM TOMOSYNTHESIS WITH CAD: 04/13/2023 HISTORY: /Screening Mammogram with NICOLLE - patient reports NO breast symptoms /priors available for comparison Encounter For Screening Mammogram For Breast Cancer. RESULT: TECHNIQUE: The study was acquired using full field digital technology and interpreted from soft copy. Digital Breast Tomosynthesis (DBT) images were obtained and used to assist in the interpretation of this examination. Current study was also evaluated with a Computer Aided Detection (CAD). Comparison is made to exams dated: 01/18/2019 mammogram - [facility], 02/29/2020 mammogram, 03/30/2021 mammogram, and 04/01/2022 mammogram - [facility]. There are scattered areas of fibroglandular density. No significant masses, calcifications, or other findings are seen in either breast. There has been no significant interval change. IMPRESSION: NEGATIVE There is no mammographic evidence of malignancy. A 1 year screening mammogram is recommended. Brianna gallegos/jerrell:04/14/2023 14:08:37 Rubber Attacher(s): RT Dl(Juno)(M), [facility] letter sent: Normal over 40 Mammogram BI-RADS: 1 Negative Multiple national specialty organizations have released breast cancer screening guidelines for women at average risk for developing breast cancer - guidelines that are based on both evidence and opinion, yet differ on when to start and how often to screen for breast cancer. With representation from Breast Imaging, Internal Medicine, Women's Health, Family Medicine, and Medical/Surgical Oncology, the [facility] has carefully reviewed the data and reached the following consensus: 1) All women should engage in shared decision-making with their providers to decide when to start and how often to screen; 2) All women should have the opportunity to start screening mammography at age 40; 3) For women ages 45-55, we recommend annual screening mammograms; 4) For women ages 55 and over, we support both the transition from an annual to a biennial interval if this aligns more with patient's values and preferences, or continuation with annual screening; 5) All women should discuss with their providers when to stop screening mammograms. Engineering Teacher: Jerrell Transcribe Date/Time: Apr 13 2023 1:48P Dictated by: BRIANNA HDEZ MD This examination was interpreted and the report reviewed and electronically signed by: BRIANNA HDEZ MD on Apr 14 2023 2:08PM EST [id number] Normal [facility] 07-22-2022 CNPN Telephone (GENSWS) SEARFIN PRUETT ([id number]) 1960 F Date Time Provider Department 07/22/22 JOELLE CASAS During your visit today, we recorded the following information about you: Berenice Villagran LPN 07/22/2022 10:27 AM Signed Patient called in requesting Colonoscopy report sent to brett anders office. ALON Mason RN 07/22/2022 12:56 PM Signed 2017 colonoscopy report faxed to Dr. Brett Anders. Fax confirmation sheet received. Alanna Lehcuga RN Allergies As of Date: 07/22/2022 (No Known Allergies) Date Reviewed: 04/01/2022 Reviewed by: Franci Metcalf MD - Fully Assessed Reason for Visit: Results [95] Prescriptions as of 07/22/2022 - betamethasone dipropionate (DIPROSONE) 0.05 % cream Apply to affected area twice daily. APPLY TO AFFECTED AREA - fluticasone (FLONASE) 50 mcg/actuation nasal spray 2 Sprays once daily. - methotrexate 2.5 mg tablet - folic acid 1 mg tablet - omeprazole (PRILOSEC) 20 mg capsule Take 20 mg by mouth once daily. - SIMVASTATIN ORAL Take 20 mg by mouth. - LISINOPRIL ORAL Take 20 mg by mouth once daily. - ASPIRIN LOW DOSE ORAL Take by mouth. - hydroxychloroquine sulfate(PLAQUENIL 200 MG TAB) Take one(1) tablet twice daily. - MULTIVITAMIN TAB Take one(1) tablet daily. - CALCIUM 500 MG TAB Problem List As Of Date 07/22/2022 Noted Resolved Leiomyoma of uterus, unspecified [D25.9] 06/18/2005 09/22/2012 Irregular menstrual cycle [N92.6] 06/18/2005 09/22/2012 Iron deficiency anemia secondary to blood loss *06/18/2005 09/22/2012 Embolism and thrombosis of unspecified site [I7*07/12/2006 09/22/2012 Family history of colon cancer [Z80.0] 02/24/2017 Essential (primary) hypertension [I10] 02/21/2017 Obesity, Class I, BMI 30-34.9 [E66.9] 04/01/2022 Encounter Status:Closed by ALANNA LECHUGA on 07/22/22 Normal [facility] ROSIE SCREENINGon 04-01-2022 [facility] ANES POSTPROC EVALon 022 ANES POSTPROC EVAL HNO ID: [id number] Author: Pamella Trujillo APRN.CONTROL CHEMIST Service: Anesthesiology Author Type: Nurse Freight Trucker Type: Anesthesia Postprocedure Evaluation Filed: 03/25/2022 11:53 AM Note Text: POST ANESTHESIA EVALUATION NOTE : 1960 Procedure Summary Date: 03/25/22 Room / Location: LD SURGERY Anesthesia Start: 1121 Anesthesia Stop: 1152 Procedure: COLONOSCOPY SCREENING Diagnosis: Family history of colon cancer Scheduled Providers: Joelle Casas MD; Pamella Trujillo APRN.CONTROL CHEMIST Responsible Provider: Pamella Trujillo APRN.CONTROL CHEMIST Anesthesia Type: MAC ASA Status: 2 Anesthesia Type: MAC Last Vitals Vitals Value Taken Time BP 03/25/22 1152 Temp 03/25/22 1152 Pulse 03/25/22 1152 Resp 03/25/22 1152 SpO2 03/25/22 1152 Post Anesthesia Patient Status Patient Evaluation: PACU. Anticipated Disposition: phase 2 then home. Neurological Status: aware and responsive. Pulmonary Status: breathing comfortably on room air Airway Control: returned to baseline unsupported. Cardiovascular Status: stable. Pain Management: clinically adequate Postoperative Hydration: acceptable. Intraoperative Events: no significant anesthesia events Post Operative Nausea/Vomiting Status: no significant post operative nausea or vomiting Recommendation: continue current plan of care. Anesthesia Observations No Documentation SIGNATURE: Pamella Trujillo APRN.CONTROL CHEMIST PATIENT NAME: Serafin Pruett DATE: March 25, 2022 TIME: 11:52 AM CSN: [id number] [facility] ANES PRE-OPon 03-25-2022 ANES PRE-OP HNO ID: [id number] Author: Pamella Trujillo APRN.CONTROL CHEMIST Service: Anesthesiology Author Type: Nurse Freight Trucker Type: Anesthesia Preprocedure Evaluation Filed: 03/25/2022 11:02 AM Note Text: ANESTHESIOLOGY DAY OF SURGERY NOTE : 1960 Procedure Information Date/Time: 03/25/22 1130 Scheduled providers: Joelle Casas MD; Pamella Trujillo APRN.CONTROL CHEMIST Procedure: COLONOSCOPY SCREENING Location: [facility] SURGERY Estimated body mass index is 31.12 kg/m? as calculated from the following: Height as of 03/22/22: 165.1 cm (5' 5 ). Weight as of 03/22/22: 84.8 kg (187 lb). Most recent hematocrit and potassium results: No results found for this basename: HCT,HEMATOCRIT,K,POTAS SIUM Relevant Problems CARDIO (+) Essential (primary) hypertension I - PHYSICAL EVALUATION AIRWAY Patient intubated: No. Tracheostomy tube not present Mallampati: III. TM distance: >3 FB. Neck ROM: full ROM without neurological symptoms. Mouth opening: adequate. Short neck: no. Thick neck: no Hodge present: no DENTAL Dental findings: teeth intact. Additional exam findings: no II - ANESTHESIA PLAN ASA Score: 2 Anesthetic Plan: MAC The patient is not a current smoker. NPO Status: adequate Beta Prashant Administration of chronic beta prashant medication not planned. Monitoring Plan Monitoring plan: standard ASA. Post Procedure Analgesic Plan Postoperative analgesic plan: per surgical service. Informed Consent Anesthetic risks, benefits, alternatives, personnel and consent discussed: yes. Patient / Responsible Green Party agrees to proceed: yes Patient / Surrogate agrees to blood products: blood products not planned DNR status reviewed with patient and/or family prior to surgery. patient elects to suspend DNR status in the perioperative setting (Full Code). Significant changes in the patient condition since the History and Physical, not otherwise documented in primary service progress note: no. Potential Anesthesia issues that may suggest increased risk of complications or contraindication to planned procedure: potential difficult intubation. No vitals data found for the desired time range. Outpatient Medications as of 03/25/2022 Medication Sig - LISINOPRIL ORAL Take 20 mg by mouth once daily. - ASPIRIN LOW DOSE ORAL Take by mouth. - methotrexate 2.5 mg tablet - folic acid 1 mg tablet - omeprazole (PRILOSEC) 20 mg capsule Take 20 mg by mouth once daily. - SIMVASTATIN ORAL Take 20 mg by mouth. - hydroxychloroquine sulfate(PLAQUENIL 200 MG TAB) Take one(1) tablet twice daily. - MULTIVITAMIN TAB Take one(1) tablet daily. - CALCIUM 500 MG TAB Facility-Administered Medications as of 03/25/2022 Medication Dose Route Frequency - lactated ringers iv infusion 75 mL/hr INTRAVENOUS CONTINUOUS I have interviewed and examined the patient. I have reviewed the medical record and/or the pre-anesthesia evaluation, pertinent labs, and test results. This contains updated information obtained within 48 hours of Surgery/Procedure. SIGNATURE: Pamella Trujillo APRN.CONTROL CHEMIST PATIENT NAME: Serafin Pruett DATE: March 25, 2022 TIME: 11:01 AM CSN: [id number] [facility] BRIEF OP NOTon 03-25-2022 BRIEF OP NOT HNO ID: [id number] Author: Joelle Casas MD Service: General Surgery Author Type: Physician Type: Brief Op Note Filed: 03/25/2022 11:49 AM Note Text: BRIEF OPERATIVE NOTE SURGERY DATE: 03/25/2022 Incision/Procedure Start Time: 11:25 cecal intubation time: 11:38 Incision Close/Procedure End Time: 11:47 Surgeon(s)/Procedurali st(s) and Air Liaison And Special Staff(s): adebayo Procedures: colonoscopy Anesthesia: MAC Findings: hemorrhoids Estimated Blood Loss: 0 ml Specimens: None Complications: None Preop Diagnosis: screening for colon cancer - high risk family history of colon cancer Postop Diagnosis: same as above, hemorrhoids SIGNATURE: Joelle Casas MD PATIENT NAME: Serafin Pruett DATE: March 25, 2022 TIME: 11:48 AM Acct: [id number] Normal [facility] HISTORY PHYSICALon HISTORY PHYSICAL HNO ID: [id number] Author: Joelle Casas MD Service: General Surgery Author Type: Physician Type: HANDP Filed: 03/25/2022 11:13 AM Note Text: HISTORY AND PHYSICAL Serafin Pruett 1960 REFERRING PHYSICIAN: Self CHIEF COMPLAINT: Consult (colonoscopy) HPI: The patient is a 62 year old female referred for endoscopy. Serafin notes no colon complaints. Patient denies any change in bowel habits, weight changes, blood in stools, black tarry stools or abdominal pain. NOTES family history of colon cancer. Serafin has undergone prior endoscopy. Most recent colonoscopy [...] sedation in the past. PAST MEDICAL HISTORY PAST MEDICAL HISTORY Diagnosis Date Arthritis Embolism and thrombosis of unspecified site 07/12/06 blood clot in left leg Hepatitis in other infectious diseases classified elsewhere Hypertension PMH - PAST MEDICAL HISTORY OF DVT DURING Snoring PAST SURGICAL HISTORY PAST SURGICAL HISTORY Procedure Laterality Date ANESTHESIA ARTHROSCOPIC PROCEDURE ANKLE AND FOOT CARDIAC CATHETERIZATION HX fall 2013 COLONOSCOPY FLX DX W/COLLJ SPEC WHEN PFRMD 11/16/2011 5 yr repeat due to family history of colon cancer COLONOSCOPY FLX DX W/COLLJ SPEC WHEN PFRMD 03/31/2017 Colonoscopy ENDOMETRIAL BX W/WO ENDOCERVIX BX W/O DILAT SPX 06/18/06 LAPS ABD PRTMANDOMENTUM DX W/WO SPEC BR/WA SPX Laparoscopy, laser PAST SURGICAL HISTORY OF 11/22/2006 Novasure PAST SURGICAL HISTORY OF 2004 left bunionectomy UTERINE ARTERY EMBOLIZ 08/2009 CURRENT MEDICATIONS Current Outpatient Medications Medication Sig methotrexate 2.5 [...] Patient has no known allergies. PERSONAL HISTORY: SOCIAL HISTORY Social History Tobacco Use Smoking status: Never Smokeless tobacco: Never Vaping Use Vaping Use: Never used Substance Use Topics Alcohol use: Yes Comment: ocas glass of wine Drug use: No FAMILY HISTORY: FAMILY HISTORY FAMILY HISTORY Problem Relation Age of Onset Cancer Mother colon other (pulmonary fibrosis) Mother other (back surgery) Mother Hypertension Father Prostate Cancer Father Stroke Father Colon Cancer Father other (triple bypass) Father CT x 2 other (near kidney/liver failure) Father Emphysema Brother Cancer Maternal Grandmother Breast Cancer Colon Cancer Maternal Grandmother Stroke Paternal Grandmother Heart Paternal Grandfather Cancer Maternal Aunt Abdominal Cancer ??etiology REVIEW OF SYMPTOMS: The review of systems data was entered by the nurse and reviewed by ne Nursing Notes: Mary Deutsch RN 03/08/2022 8:12 [...] patient denies a history of epilepsy/convulsions, denies (more content not included)... Normal [facility] OPERATIVE NOon 03-25-2022 OPERATIVE NO HNO ID: [id number] Author: Joelle Casas MD Service: General Surgery Author Type: Physician Type: Operative Report Filed: 03/26/2022 7:28 AM Note Text: [facility] - Operative Report - SERAFIN Muniz : 1960 AGE: 62. SEX: F PATIENT TYPE: O HOSP SVC: LOCATION: ATTENDING PHYSICIAN: PAMELLA TRUJILLO [facility] NUMBER: [id number] DATE OF SURGERY/PROCEDURE: 03/25/2022 INCISION/PROCEDURE START TIME: 11:25 AM INCISION CLOSE/PROCEDURE END TIME: 11:47 AM PREOPERATIVE DIAGNOSIS: Family history of colon cancer. POSTOPERATIVE DIAGNOSIS: Family history of colon cancer and hemorrhoids. SURGEON: Joelle Casas MD OYSTER FARMER: No Additional Staff SURGERY/PROCEDURE: Screening colonoscopy for high risk for colon cancer. ANESTHESIA: Monitored anesthesia care. LOCATION: [facility]. FINDINGS: Hemorrhoids. INDICATIONS: Serafin Pruett is a 62-year-old female who presents with she states family history of colon cancer. She states her mother had colon cancer. She last had a colonoscopy in 2017. She has been counseled as to the risks of the colonoscopy including but not limited to infection, bleeding, perforation of GI tract requiring emergency surgery, inability to complete the procedure, complications, anesthesia, etc. The patient understands and agrees to proceed. DESCRIPTION OF PROCEDURE: After informed consent was given, the patient was brought to the endoscopy suite. Appropriate time-out protocol was done in the preprocedure area as well as in the endoscopy suite. Patient was then given IV anesthesia by the Anesthesia provider. The endoscope was lubricated, carefully inserted into the patient's anus and advanced into the rectum. It was then advanced into the sigmoid colon, then left colon, past splenic flexure into transverse colon, past hepatic flexure down the right colon into the cecum. The cecum was identified by confluence of taeniae coli, identification of ileocecal valve, appendiceal orifice, and external palpation. At this level, the colonoscope was slowly retracted back and entire colonic mucosal surface was examined. There was no evidence of any masses, polyps, or lesions in the right colon. There was no evidence of any masses, polyps, lesions in the transverse colon. There was no evidence of any masses, polyps, or lesions in the left colon. There was no evidence of any masses, polyps, or lesions in the sigmoid colon. There was no evidence of any masses or polyps in the rectum. Retroflex view in the rectum revealed hemorrhoidal changes, but no active inflammation or bleeding was noted. The colon cleansing preparation was adequate. The endoscope was removed intact. The anal canal revealed no palpable masses. The patient tolerated the procedure well, was brought to recovery room in stable condition. COMPLICATIONS: None. SPECIMENS: None. ESTIMATED BLOOD LOSS: None. Joelle Casas MD LW:[id number] /[id number] Normal [facility] Office Visiton 01-27-2017 Documentation of current medications (procedure) Done Invalid Interpretation Code [facility] Work Phone: [phone] Fall risk assessment No Invalid Interpretation Code [facility] Work Phone: [phone] Protein mass conc Done Invalid Interpretation Code [facility] Work Phone: [phone] Lab Report: Lipid Profileon 01-20-2017 Cholesterol 144 mg/dL Invalid Interpretation Code 200 [facility] Work Phone: [phone] HDL Cholesterol 84 mg/dL Invalid Interpretation Code [facility] Work Phone: [phone] LDL Cholesterol 50 mg/dL Invalid Interpretation Code 0-130 [facility] Work Phone: [phone] Triglyceride 50 mg/dL Invalid Interpretation Code [facility] Work Phone: [phone] very low density lipoproteins 10 mg/dL Invalid Interpretation Code 5-40 [facility] Work Phone: [phone] Lab Report: Liver Profileon 01-20-2017 Alanine aminotransferase (ALT) 25 U/L Invalid Interpretation Code 12-78 [facility] Work Phone: [phone] Albumin 3.5 g/dL Invalid Interpretation Code 3.4-5.0 [facility] Phone: [phone] Alkaline phosphatase (ALP) 91 U/L Invalid Interpretation Code 45-117 [facility] Work Phone: [phone] ALP enzyme act/vol (Bld) 91 U/L Invalid Interpretation Code 45-117 [facility] Phone: [phone] Aspartate aminotransferase (AST) 26 U/L Invalid Interpretation Code 15-37 [facility] Phone: [phone] Bilirubin (direct) 0.16 mg/dL Invalid Interpretation Code 0.00-0.30 [facility] Phone: [phone] Bilirubin (total) 0.50 mg/dL Invalid Interpretation Code 0.20-1.00 [facility] Phone: [phone] Globulin 3.2 g/dL Invalid Interpretation Code 2.3-3.5 [facility] Phone: [phone] Globulin mass conc (S) 3.2 g/dL 2.3-3.5 [facility] Phone: [phone] Protein 6.7 g/dL Invalid Interpretation Code 6.4-8.2 [facility] Phone: [phone] Office Visiton 07-05-2016 Dietary management education, guidance, and counseling (procedure) yes Invalid Interpretation Code [facility] Phone: [phone] Documentation of current medications (procedure) Done Invalid Interpretation Code [facility] Phone: [phone] 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 Left ventricular Ejection fraction 65 % Invalid Interpretation Code [facility] Phone: [phone] Office Visit: postop surgery 8//16on 12-29-2015 Tobacco smoking status NHIS Never Invalid Interpretation Code [facility] Phone: [phone] Tobacco smoking status NHIS Never smoker Invalid Interpretation Code [facility] Work Phone: [phone] Tobacco use CPHS Never smoker Invalid Interpretation Code [facility] Work Phone: [phone] Office Visit: eval soft tiss ue mass left medial foreheadon 10-06-2015 Alcoholism counseling (procedure) no Invalid Interpretation Code [facility] Work Phone: [phone] Protein mass conc no Invalid Interpretation Code [facility] Work Phone: [phone] Office Visiton 05-27-2015 cardiac risk group B Invalid Interpretation Code [facility] Work Phone: [phone] General cardiovascular disease 10Y risk [#] Moran.D'Agostino 3 % Invalid Interpretation Code [facility] Work Phone: [phone] Lab Report: Liver Profileon 05-07-2014 ALK P 91 U/L Invalid Interpretation Code [address] [facility] Work Phone: [phone] GE use only - for [employer] import when terms are not otherwise specified 91 U/L Invalid Interpretation Code [address]36 [facility] Work Phone: [phone] Lab Report: CBCDon 4 Absolute Neutrophil count 3.1 X10 3/UL Normal 2.0-7.7 [facility] Work Phone: [phone] ANC 3.1 X10 3/UL Normal 2.0-7.7 [facility] Work Phone: [phone] Basophils/100 leukocytes 0.7 % Normal 0-1 [facility] Work Phone: [phone] Basophils/100 WBC (Bld) 0.7 % Normal 0-1 [facility] Work Phone: [phone] Eosinophils/100 leukocytes 11.4 % High 0-5 [facility] Work Phone: [phone] Eosinophils/100 WBC (Bld) 11.4 % High 0-5 [facility] Work Phone: [phone] Erythrocytes (RBC) 4.39 10*6/uL Normal 4.2-5.[address] [facility] Work Phone: [phone] Hematocrit (HCT) 39.9 % Normal 37-47 [facility] Work Phone: [phone] Hematocrit Volume Fraction (Bld) 39.9 % Normal 37-47 [facility] Work Phone: [phone] Hemoglobin (HGB) 13.4 g/dL Normal 12.0-15.0 [facility] Work Phone: [phone] Lymphocytes/100 leukocytes 24.2 % Normal 19-41 [facility] Work [phone] Lymphocytes/100 WBC (Bld) 24.2 % Normal 19-41 [facility] Work Phone: [phone] MCH 30.5 pg Normal 27.0-32.0 [facility] Work [phone] Entitic mass (RBC) 30.5 pg Normal 27.0-32.0 [facility] Work Phone: [phone] MCHC 33.6 G/GL Normal 32-36 [facility] Work Phone: [phone] MCHC mass conc (RBC) 33.6 G/GL Normal 32-[address] [facility] [address] [facility] Work Phone: [phone] MCV 90.9 fL Normal 81-99 [facility] Work Phone: [phone] MCV Entitic volume (RBC) 90.9 fL Normal 81-99 [facility] Work Phone: [phone] Monocytes/100 leukocytes 7.2 % Normal 0-10 [facility] Work Phone: [phone] Monocytes/100 WBC (Bld) 7.2 % Normal 0-10 [facility] Work Phone: [phone] Neutrophils/100 leukocytes 56.1 % Normal 47-70 [facility] Work Phone: [phone] Neutrophils/100 WBC (Bld) 56.1 % Normal 47-70 [facility] Work Phone: [phone] Platelet mean volume Entitic volume (Bld) 9.9 fL Normal 6.2-12.0 [facility] Work Phone: Platelets [phone] 10*3/mm3 Normal 150-450 [facility] Work Phone: [phone] Platelets #/vol (Bld) 256 10*3/mm3 Normal 150-450 [facility] Work Phone: [phone] PMV by Tierney 9.9 fL Normal 6.2-12.0 [facility] Work Phone: [phone] RBC #/vol (Bld) 4.39 10*6/uL Normal 4.2-5.4 [facility] Work Phone: [phone] WBC #/vol (Bld) 5.6 10*3/uL Normal 4.4-11.0 [facility] Work Phone: [phone] WBC (Leukocytes) 5.6 10*3/uL Normal 4.4-11.0 [facility] Work Phone: [phone] Lab Report: [facility] 03-11-2014 Albumin/Globulin Ratio 1 {ratio} Normal 0.9-2.4 [facility] Work Phone: [phone] Anion gap 5 mmol/L Normal 5-15 [facility] Work Phone: [phone] Anion gap 4 molar conc 5 Normal 5-15 [facility] Work Phone: [phone] Anion gap molar conc 5 mmol/L Normal 5-15 [facility] Work Phone: [phone] BUN/Creatinine Ratio 20.0 RATIO Normal 10-20 [facility] Work Phone: [phone] Calcium 8.8 mg/dL Normal 8.5-10.1 [facility] Work Phone: [phone] Chloride 105 mmol/L Normal 98-107 [facility] Work Phone: [phone] CO2 30.0 mmol/L Normal 21.0-32.0 [facility] Work Phone: [phone] CO2 ppres (BldV) 30.0 mmol/L Normal 21.0-32.0 [facility] Work Phone: [phone] Creatinine 0.7 mg/dL Normal 0.6-1.0 [facility] Work Phone: [phone] eGFR (non-black) 93 mL/min/{1.73_m2} Normal >60 [facility] Work Phone: [phone] eGFR (non-black) 113 mL/min/{1.73_m2} Normal >60 [facility] Work Phone: [phone] GFRAA 113 mL/min Normal >60 [facility] Work Phone: [phone] Glucose 100 mg/dL Normal 70-110 [facility] Work Phone: [phone] Glucose mass conc 100 mg/dL Normal 70-110 [facility] Work Phone: [phone] Potassium 3.7 mmol/L Normal 3.5-5.1 [facility] Work Phone: [phone] Sodium 140 mmol/L Normal 136-145 [facility] Work Phone: [phone] Urea nitrogen 14 mg/dL Normal 7-18 [facility] Work Phone: [phone] Replaced Document: Tony Garner 02-15-2014 EKG QRS axis 25 deg Invalid Interpretation Code [facility] Work Phone: [phone] electrocardiogram interpretation Sinus Rhythm WITHIN NORMAL LIMITS Invalid Interpretation Code [facility] Work Phone: [phone] Interpretation Sinus Rhythm WITHIN NORMAL LIMITS Invalid Interpretation Code [facility] Work Phone: [phone] P [place] 34 deg Invalid Interpretation Code [facility] Work Phone: [phone] P wave axis, electrocardiogram 34 deg Invalid Interpretation Code [facility] Work Phone: [phone] NV Interval 122 ms Invalid Interpretation Code [facility] Work Phone: [phone] NV interval, electrocardiogram 122 ms Invalid Interpretation Code [facility] Work Phone: [phone] Pulse (Heart Rate) 89 /min Invalid Interpretation Code [facility] Work Phone: [phone] Pulse (Heart Rate) 422 ms Invalid Interpretation Code [facility] Work Phone: [phone] QRS axis, electrocardiogram 25 deg Invalid Interpretation Code [facility] Work Phone: [phone] QRS Duration 100 ms Invalid Interpretation Code [facility] Work Phone: [phone] QRS duration, electrocardiogram 100 ms Invalid Interpretation Code [facility] Work Phone: [phone] QT Interval new path ms Invalid Interpretation Code [facility] Work Phone: [phone] QT interval, electrocardiogram new path ms Invalid Interpretation Code [facility] Work Phone: [phone] T [place] -1 deg Invalid Interpretation Code [facility] Work Phone: [phone] T wave axis, electrocardiogram -1 deg Invalid Interpretation Code [facility] Work Phone: [phone] 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 Glucose 85 mg/dL Invalid Interpretation Code [facility] Work Phone: [phone] Glucose fasting mass conc 85 mg/dL [facility] Work Phone: [phone] Glucose fasting mass conc (BldV) 85 mg/dL Invalid Interpretation Code [facility] Work Phone: [phone] Vital Signs Date Time Vital Sign Value Performing Clinician Facility 04-13-2023 14:25-0500 Body height 165.1 cm Franci Metcalf MD Work Phone: [facility] 04-13-2023 14:25-0500 Body weight 91.17 kg Franci Metcalf MD Work Phone: [facility] 04-13-2023 14:25-0500 Diastolic blood pressure 74 mm[Hg] Franci Metcalf MD Work Phone: [facility] 04-13-2023 14:25-0500 Systolic blood pressure 122 mm[Hg] Franci Metcalf MD Work Phone: [facility] 04-01-2022 09:06-0500 Body height 165.1 cm Franci Metcalf MD Work Phone: [facility] 04-01-2022 09:06-0500 Body weight 87.09 kg Franci Metcalf MD Work Phone: [facility] 04-01-2022 09:06-0500 Diastolic blood pressure 76 mm[Hg] Franci Metcalf MD Work Phone: [facility] 04-01-2022 09:06-0500 Systolic blood pressure 122 mm[Hg] Franci Metcalf MD Work Phone: [facility] 03-08-2022 08:10-0400 Body height 167.6 cm Diane Three Oaks PA-C Work Phone: [facility] 03-08-2022 08:10-0400 Body temperature 96.91 [degF] Diane Three Oaks PA-C Work Phone: [facility] 03-08-2022 08:10-0400 Body weight 87.36 kg Diane Three Oaks PA-C Work Phone: [facility] 03-08-2022 08:10-0400 Diastolic blood pressure 70 mm[Hg] Diane Edgardo PA-C Work Phone: [facility] 03-08-2022 08:10-0400 Heart rate 77 /min Diane Three Oaks PA-C Work Phone: [facility] 03-08-2022 08:10-0400 SaO2% (BldA) [Mass fraction] 100 % Diane Edgardo PA-C Work Phone: [facility] 03-08-2022 08:10-0400 Systolic blood pressure 114 mm[Hg] Diane Leonf PA-C Work Phone: [facility] 01-27-2017 11:59-0400 BMI (Body Mass Index) 26.62 kg/m2 Raisawesley [facility] Work Phone: 01-27-2017 11:59-0400 BP Diastolic 62 mm[Hg] [facility] Work Phone: 01-27-2017 11:59-0400 BP Systolic 124 mm[Hg] [facility] Work Phone: 01-27-2017 11:59-0400 Height 165.1 cm [facility] Work Phone: 01-27-2017 11:59-0400 Pulse (Heart Rate) 80 /min [facility] Work Phone: 01-27-2017 11:59-0400 Respiratory Rate 18 /min Chantalle Corrine [facility] Work Phone: 01-27-2017 11:59-0400 Weight 72.58 kg Claudia Castle [facility] Work Phone: 07-05-2016 08:43-0500 BMI (Body Mass Index) 29.62 kg/m2 Titi Rafa ART [facility] Work Phone: 07-05-2016 08:43-0500 BP Diastolic 70 mm[Hg] Titi Rafa ART [facility] Work Phone: 07-05-2016 08:43-0500 BP Systolic 128 mm[Hg] Titi Rafa ART [facility] Work Phone: 07-05-2016 08:43-0500 BSA (Body Surface Area) 1.88 m2 Titi Rafa ART [facility] Work Phone: 07-05-2016 08:43-0500 Height 165.1 cm Titi Rafa ART [facility] Work Phone: 07-05-2016 08:43-0500 Pulse (Heart Rate) 78 /min Titi Rafa ART [facility] Work Phone: 07-05-2016 08:43-0500 Respiratory Rate 18 /min Titi Rafa ART [facility] Work Phone: 07-05-2016 08:43-0500 Weight 80.74 kg Titi Rafa ART [facility] Work Phone: 12-29-2015 14:49-0400 Body Temperature 98.6 [degF] Titi Craig NP [facility] Work Phone: 02-15-2014 13:51-0400 Heart rate 89 /min Solange Gee RN [facility] Work Phone: 02-15-2014 13:51-0400 Heart rate 422 ms Solange Gee RN [facility] Work Phone: Encounters Encounter Date Encounter Type Care Provider Facility Start: 04-14-2023 Documentation procedure Mammog elijah Coordinator [facility] Start: 04-14-2023 Letter encounter Mammography Coordinator [facility] Start: 04-13-2023 End: 04-14-2023 ambulatory BRETT ANDERS Facility:[facility] Start: 04-13-2023 Encounter for gynecological examination (general) (routine) without abnormal findings FRANCI METCALF [facility] Start: 04-13-2023 End: 04-13-2023 Patient encounter procedure Franci Metcalf MD Work Phone: OB/Gynecology Comment on above: Encounter for gyneco logical examination (general) (routine) without abnormal findings (Primary Dx); Encounter for screening mammogram for breast cancer Start: 04-13-2023 End: 04-13-2023 Patient encounter status Franci Metcalf MD Work Phone: [facility] Start: 04-13-2023 End: 04-13-2023 Subsequent hospital visit by physician [facility] Comment on above: Encounter for screen ing mammogram for breast cancer [Z12.31] Start: 07-22-2022 Telephone encounter Joelle Torres MD Work Phone: General Surgery Comment on above: Results Start: 04-01-2022 Documentation procedure Mammog elijah Coordinator [facility] Start: 04-01-2022 Letter encounter Mammography Coordinator [facility] Department Start: 04-01-2022 End: 04-01-2022 Patient encounter procedure Franci Metcalf MD Work Phone: OB/Gynecology Comment on above: Encounter for gyneco logical examination (general) (routine) without abnormal findings (Primary Dx); Encounter for screening mammogram for breast cancer; Obesity, Class I, BMI 30-34.9 Start: 04-01-2022 End: 04-01-2022 Patient encounter status Franci Metcalf MD Work Phone: OB/Gynecology Start: 04-01-2022 End: 04-01-2022 Subsequent hospital visit by physician [facility] Comment on above: Encounter for gyneco logical examination (general) (routine) without abnormal findings [Z01.419] Start: 03-25-2022 ambulatory PAMELLA TRUJILLO Facility:[facility] Start: 03-08-2022 End: 03-08-2022 Patient encounter procedure Diane Three Oaks PA-C Work Phone: General Surgery Comment on above: Encounter for screen ing for malignant neoplasm of colon (Primary Dx); Family history of colon cancer; Tortuous colon Start: 02-18-2022 Telephone encounter Joelle Torres MD Work Phone: General Surgery Comment on above: 03/25 COLON LODI Procedures Date Procedure Procedure Detail Performing Clinician Start: 04-01-2022 End: 04-01-2022 Mammography Franci Metcalf MD Work Phone: Start: 03-30-2021 Mammography Diane Gra f PA-C Work Phone: Start: 03-31-2017 Colonoscopy Diane Gra f PA-C Work Phone: Start: 01-27-2017 End: 01-27-2017 [...] Start: 12-29-2015 End: 01-01-2016 Follow Up Appt Jacky Edwards MD Start: 12-16-2015 End: 12-16-2015 TRIPP [...] Start: 05-28-2015 End: 05-30-2015 *Hepatic Function Panel EMI [facility] Work Phone: Start: 05-28-2015 End: 05-30-2015 Lipid 1996 panel - Serum or Plasma Marjorie Jenkins PA-C Work Phone: Start: 05-28-2015 End: 05-30-2015 *Hepatic Function Panel [facility] Work Phone: Start: 05-28-2015 End: 05-30-2015 Lipid panel [AGGREGATE] SHAYNA Cuevas-C Work Phone: Start: 05-27-2015 End: 12-16-2015 Complete [...] Author Start: 03-30-2026 HPV TESTING HPV TESTING [facility] Start: 03-30-2026 PAP TESTING PAP TESTING [facility] Start: 02-25-2025 Urine microalbumin profile [facility] Start: 04-13-2024 BP Controlled (<130/80) BP Controlle d (<130/80) [facility] Start: 04-13-2024 Mammography Mammogram Screening [facility] Start: 05-13-2023 Covid-19 Vaccine () Covid-19 Vaccine () [facility] Start: 04-01-2023 BP CONTROLLED (<130/80) BP CONTROLLE D (<130/80) [facility] Start: 04-01-2023 Mammography [facility] Start: 03-08-2023 BP CONTROLLED (<130/80) BP CONTROLLE D (<130/80) [facility] Start: 01-14-2023 Covid-19 Vaccine () Covid-19 Vaccine (2022-24 season) [facility] Start: 01-14-2023 Influenza vaccination Influenza Vacc ine (#1) [facility] Start: 05-16-2022 DEPRESSION ASSESSMENT DEPRESSION ASS ESSMENT [facility] Start: 03-31-2022 Colonoscopy COLONOSCOPY [facility] Start: 03-31-2022 COLORECTAL CANCER SCREENING COLORECTAL CANCER SCREENING [facility] Start: 03-30-2022 Mammography MAMMOGRAM [facility] Start: 01-20-2022 LIPID SCREEN LIPID SCREEN [facility] Start: 01-14-2022 Influenza vaccination INFLUENZA (#1) [facility] Start: 01-03-2022 Lipid 1996 panel - S serenity or Plasma Lipid Screening [facility] Start: 12-27-2021 COVID-19 VACCINE (5 - Booster for Moderna series) COVID-19 VACCINE (5 - Booster for Moderna series) [facility] Start: 05-16-2021 [facility] Start: 08-04-2017 End: 08-04-2017 Appointment Appointment [facility] Work Phone: Start: 07-20-2017 End: 01-24-2017 *Hepatic Function Panel *Hepatic Function Panel [facility] Work Phone: Start: 07-20-2017 End: 01-24-2017 Lipid 1996 panel *Lipid Profile CC PCP [facility] Work Phone: Start: 07-20-2017 End: 01-24-2017 *Hepatic Function Panel *Hepatic Function Panel [facility] Work Phone: Start: 07-20-2017 End: 01-24-2017 Lipid panel [AGGREGATE] *Lipid Profile CC PCP [facility] Work Phone: Start: 01-27-2017 End: 01-27-2017 DJN DJKarla [facility] Work Phone: Start: 01-27-2017 End: 01-27-2017 Follow Up Appt 6 months Follow Up Appt 6 months [facility] Work Phone: Start: 01-27-2017 End: 01-27-2017 Neurology Referral Neurology Referral Radha Varghese MD, [address], [place], [address] [facility] Work Phone: Start: 01-27-2017 End: 01-27-2017 Stress Echocardiogram (treadmill) Stress Echocardiogram (treadmill) [facility] Work Phone: Start: 01-27-2017 End: 01-27-2017 Appointment Appointment [facility] Work Phone: Start: 01-27-2017 End: 01-27-2017 TRIPP ALMAGUER [facility] Work Phone: Start: 01-27-2017 End: 01-27-2017 Follow Up Appt 6 months Follow Up Appt 6 months [facility] Work Phone: Start: 01-27-2017 End: 01-27-2017 Neurology Referral Neurology Referral Radha Varghese MD, [address], [address], [place], [address] [facility] Work Phone: Start: 01-27-2017 End: 01-27-2017 Stress Echocardiogram (treadmill) Stress Echocardiogram (treadmill) [facility] Work Phone: Start: 01-03-2017 End: 01-20-2017 *Hepatic Function Panel *Hepatic Function Panel [facility] Work Phone: Start: 01-03-2017 End: 01-20-2017 Lipid 1996 panel *Lipid Profile CC PCP [facility] Work Phone: Start: 01-03-2017 End: 01-20-2017 *Hepatic Function Panel *Hepatic Function Panel [facility] Work Phone: Start: 01-03-2017 End: 01-20-2017 Lipid panel [AGGREGATE] *Lipid Profile CC PCP [facility] Work Phone: Start: 09-23-2016 LIPID SCREEN LIPID SCREEN [facility] Start: 07-05-2016 End: 07-05-2016 TRIPP ALMAGUER [facility] Work Phone: Start: 07-05-2016 End: 07-05-2016 Follow Up Appt 6 months Follow Up Appt 6 months [facility] Work Phone: Start: 07-05-2016 End: 07-05-2016 TRIPP ALMAGUER [facility] Work Phone: Start: 07-05-2016 End: 07-05-2016 Follow Up Appt 6 months Follow Up Appt 6 months [facility] Work Phone: Start: 06-11-2016 End: 07-01-2016 *Hepatic Function Panel *Hepatic Function Panel [facility] Work Phone: Start: 06-11-2016 End: 07-01-2016 Lipid 1996 panel *Lipid Profile CC PCP [facility] Work Phone: Start: 06-11-2016 End: 07-01-2016 *Hepatic Function Panel *Hepatic Function Panel [facility] Work Phone: Start: 06-11-2016 End: 07-01-2016 Lipid panel [AGGREGATE] *Lipid Profile CC PCP [facility] Work Phone: Start: 12-29-2015 End: 01-01-2016 Follow Up Appt Other Follow Up Appt Other [facility] Work Phone: Start: 12-29-2015 End: 12-29-2015 Primary Care Physician [facility] [address] [place] [address], [address], [place], [address] [facility] Work Phone: Start: 12-29-2015 End: 01-01-2016 Follow Up Appt Other Follow Up Appt Other [facility] Work Phone: Start: 12-29-2015 End: 12-29-2015 Primary Care Physician Primary Care Physician Brett Anders [facility], [address] [place] [address], [facility], [place], [address] [facility] Work Phone: Start: 12-16-2015 End: 12-16-2015 DJN DANAYN [facility] Work Phone: Start: 12-16-2015 End: 12-16-2015 Follow Up Appt 6 months Follow Up Appt 6 months [facility] Work Phone: Start: 12-16-2015 End: 12-16-2015 DJN DANAYN [facility] Work Phone: Start: 12-16-2015 End: 12-16-2015 Follow Up Appt 6 months Follow Up Appt 6 months [facility] Work Phone: Start: 11-28-2015 End: 12-08-2015 *Hepatic Function Panel *Hepatic Function Panel [facility] Work Phone: Start: 11-28-2015 End: 12-08-2015 Lipid 1996 panel *Lipid Profile CC PCP [facility] Work Phone: Start: 11-28-2015 End: 12-08-2015 *Hepatic Function Panel *Hepatic Function Panel [facility] Work Phone: Start: 11-28-2015 End: 12-08-2015 Lipid panel [AGGREGATE] *Lipid Profile CC PCP [facility] Work Phone: Start: 05-28-2015 End: 05-30-2015 *Hepatic Function Panel *Hepatic Function Panel [facility] Work Phone: Start: 05-28-2015 End: 05-30-2015 Lipid 1996 panel *Lipid Profile CC PCP [facility] Work Phone: Start: 05-28-2015 End: 05-30-2015 *Hepatic Function Panel *Hepatic Function Panel [facility] Work Phone: Start: 05-28-2015 End: 05-30-2015 Lipid panel [AGGREGATE] *Lipid Profile CC PCP [facility] Work Phone: Start: 05-27-2015 End: 12-16-2015 Complete sleep workup (PSG,CPAP as indicated) & Follow up Complete sleep workup (PSG,CPAP as indicated) & Follow up [facility] Work Phone: Start: 05-27-2015 End: 05-27-2015 TRIPP ALMAGUER [facility] Work Phone: Start: 05-27-2015 End: 05-27-2015 Follow Up Appt 6 months Follow Up Appt 6 months [facility] Work Phone: Start: 05-27-2015 End: 12-16-2015 Complete sleep workup (PSG,CPAP as indicated) & Follow up Complete sleep workup (PSG,CPAP as indicated) & Follow up [facility] Work Phone: Start: 05-27-2015 End: 05-27-2015 TRIPP ALMAGUER [facility] Work Phone: Start: 05-27-2015 End: 05-27-2015 Follow Up Appt 6 months Follow Up Appt 6 months [facility] Work Phone: Start: 11-11-2014 End: 11-25-2014 *Hepatic Function Panel *Hepatic Function Panel [facility] Work Phone: Start: 11-11-2014 End: 11-25-2014 Lipid 1996 panel *Lipid Profile CC PCP [facility] Work Phone: Start: 11-11-2014 End: 11-25-2014 *Hepatic Function Panel *Hepatic Function Panel [facility] Work Phone: Start: 11-11-2014 End: 11-25-2014 Lipid panel [AGGREGATE] *Lipid Profile CC PCP [facility] Work Phone: Start: 09-23-2014 DIABETES SCREEN DIABETES SCREEN [facility] Start: 09-23-2014 Diabetes Screening Diabetes Screenin g [facility] Start: 05-06-2014 End: 05-13-2014 *Hepatic Function Panel *Hepatic Function Panel [facility] Work Phone: Start: 05-06-2014 End: 05-13-2014 Lipid 1996 panel *Lipid Profile CC PCP [facility] Work Phone: Start: 05-06-2014 End: 05-13-2014 *Hepatic Function Panel *Hepatic Function Panel [facility] Work Phone: Start: 05-06-2014 End: 05-13-2014 Lipid panel [AGGREGATE] *Lipid Profile CC PCP [facility] Work Phone: Start: 03-04-2014 End: 03-22-2014 *BMP *BMP [facility] Work Phone: Start: 03-04-2014 End: 03-22-2014 CBC W Auto Differential panel - Blood *CBC without Diff [facility] Work Phone: Start: 03-04-2014 End: 03-22-2014 Chest x-ray X-Ray, Chest, PA & Lateral [facility] Work Phone: Start: 03-04-2014 End: 03-22-2014 *BMP *BMP [facility] Work Phone: Start: 03-04-2014 End: 03-22-2014 CBC W Auto Differential panel - Blood *CBC without Diff [facility] Work Phone: Start: 03-04-2014 End: 03-22-2014 Chest x-ray X-Ray, Chest, PA & Lateral [facility] Work Phone: Start: 02-15-2014 End: 03-22-2014 DJKarla DJN [facility] Work Phone: Start: 02-15-2014 End: 02-15-2014 Echocardiography Echocardiogram (complete) [facility] Work Phone: Start: 02-15-2014 End: 03-22-2014 Follow Up Appt 1 year Follow Up Appt 1 year [facility] Work Phone: Start: 02-15-2014 End: 02-15-2014 Left Heart Cath Left Heart Cath [facility] Work Phone: Start: 02-15-2014 End: 03-22-2014 DJN DJN [facility] Work Phone: Start: 02-15-2014 End: 02-15-2014 Echocardiography Echocardiogram (complete) [facility] Work Phone: Start: 02-15-2014 End: 03-22-2014 Follow Up Appt 1 year Follow Up Appt 1 year [facility] Work Phone: Start: 02-15-2014 End: 02-15-2014 Left Heart Cath Left Heart Cath [facility] Work Phone: Start: 2006 COLOGUARD (FIT-DNA) COLOGUARD (FIT-D NA) [facility] Start: [address] COLONOGRAPHY [facility] Start: 2006 FECAL OCCULT BLOOD FECAL OCCULT BLOO D [facility] Start: 2006 SIGMOIDOSCOPY SIGMOIDOSCOPY [facility] Start: 01-30-1980 SHINGRIX VACCINE (1 of 2) MEREDITH GRIX VACCINE (1 of 2) [facility] Start: 1979 ANNUAL PCP TEAM CAVALRY OFFICER MAHI DISEASE VISIT ANNUAL PCP TEAM CHRONIC DISEASE VISIT [facility] Start: 1979 HEPATITIS C SCREENING HEPATITIS C SC REENING [facility] Start: 1979 HIV SCREENING HIV SCREENING [facility] Start: 1967 PNEUMOCOCCAL (1 - PCV) PNEUMOCOCCAL (1 - PCV) [facility] Start: 1967 Pneumococcal vaccination Pneum ococcal Vaccine (1 - PCV) [facility] End: 05-12-2024 ROSIE SCREENING ROSIE SCREENING Radiology Routine Encounter for gynecological examination (general) (routine) without abnormal findings Encounter for screening mammogram for breast cancer 1 Occurrences starting 04/13/2023 until 05/12/2024 [facility] Work Phone: Comment on above: 1 Occurrences starti ng 04/13/2023 until 05/12/2024 End: 05-01-2023 ROSIE SCREENING W NICOLLE ROSIE SCREENING W NICOLLE Radiology Routine Encounter for screening mammogram for breast cancer 1 Occurrences starting 04/01/2022 until 05/01/2023 [facility] Work Phone: Comment on above: 1 Occurrences starti ng 04/01/2022 until 05/01/2023 ROSIE SCREENING W NICOLLE ROSIE SCREENI NG W NICOLLE Radiology Routine Encounter for screening mammogram for breast cancer 04/13/2023 2:12 PM EST [facility] Work Phone: Patient Education [facility] Work Phone: End: 03-08-2023 Screening colonoscopy COLONOSCOPY SCREENING Endoscopy Routine Family history of colon cancer 1 Occurrences starting 03/08/2022 until 03/08/2023 [facility] Work Phone: Comment on above: 1 Occurrences starti ng 03/08/2022 until 03/08/2023 [facility] Immunizations Immunization Date Immunization Notes Care Provider Fa cility 03-18-2023 influenza, injectabl e, quadrivalent, preservative free Franci Metcalf MD Work Phone: [facility] Work Phone: 03-18-2023 respiratory syncytia l virus (RSV) vaccine, bivalent (ABRYSVO) Franci Metcalf MD Work Phone: [facility] Work Phone: 05-11-2021 zoster vaccine recombinant Franci Metcalf MD Work Phone: [facility] Work Phone: 11-11-2020 zoster vaccine recombinant Franci Metcalf MD Work Phone: [facility] Work Phone: 09-13-2020 COVID-19 original vaccine, full dose, monovalent (MODERNA) Franci Metcalf MD Work Phone: [facility] Work Phone: 02-03-2020 influenza, injectabl e, quadrivalent, preservative free Diane Three Oaks PA-C Work Phone: [facility] Work Phone: 02-03-2020 influenza virus vaccine, unspecified formulation Screen Wstr [facility] 02-25-2019 influenza, injectabl e, quadrivalent, preservative free Diane Edgardo PA-C Work Phone: [facility] Work Phone: 02-23-2018 influenza, injectabl e, quadrivalent, preservative free Diane Three Oaks PA-C Work Phone: [facility] Work Phone: 02-01-2017 influenza, seasonal, injectable Diane Edgardo PA-C Work Phone: [facility] Work Phone: 02-25-2015 tetanus toxoid, redu rell diphtheria toxoid, and acellular pertussis vaccine, adsorbed Diane Edgardo PA-C Work Phone: [facility] Work Phone: 2014 influenza, seasonal, injectable Diane Three Oaks PA-C Work Phone: [facility] Work Phone: 02-08-2012 influenza, seasonal, injectable Diane Three Oaks PA-C Work Phone: [facility] Work Phone: Payers Date Payer Category Payer Unknown [id number] 2020 Unknown [id number] 2020 Unknown [id number] Social History Date Type Detail Facility Start: 04-01-2022 Tobacco smoking stat [facility] Never smoked tobacco [facility] Start: 03-08-2022 End: 04-13-2023 Alcohol intake Current drinker of alcohol (finding) [facility] Start: 09-16-2011 Alcohol Comment ocas glass of wine [facility] Start: 1960 Sex Assigned At Not on file [facility] Start: 02-26-2022 End: 04-01-2022 Exposure to SARS-CoV-2 (event) Not sure [facility] Start: 04-01-2022 Tobacco use and exposure Smoke less tobacco non-user [facility] Start: 04-01-2022 End: 04-13-2023 History of Social function [facility] Start: 04-01-2022 End: 04-13-2023 Tobacco use panel [facility] National Score (1-10 0), lower number is lower risk Not on file [facility] Clinical Notes 07-12-2006 to 04-14-2023 Letter - Coordinator, Mammography - 04/14/2023 2:08 PM Franci Mccormack MD - 04/13/2023 2:23 PM Rebecca Jon Mammo Tech - 04/13/2023 1:50 PM Tony Reynoso PA-C - 03/08/2022 8:14 AM EDT Note Date & Type Note Facility 04-14-2023 Miscellaneous Notes April 15, 2023 PID: [id number] Serafin Pruett [address] [place] [address] Dear Ms. Pruett, We are pleased to [...] report will be kept on file at [facility] as part of your permanent medical record and are available for your continuing care. Thank you for allowing us to help in meeting your health care needs. Sincerely, Dr. Hdez Interpreting Radiologist [facility] (Normal over 40) documented in this encounter [facility] 04-13-2023 Note HNO ID: [id number] Author: Franci Metcalf MD Service: ? Author Type: Physician Type: Progress Notes Filed: 04/13/2023 2:40 PM Note Text: Serafin is a 63 year old who presents for an annual gynecologic exam without complaints. Postmenopausal: yes HRT use: No. 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 LMP: 09/14/2006, Ablation Age at Menarche: Age at First : Age at Menopause: Plumber Maintenance History Comments: Sexual Activity: Yes; Male; husbands vasectomy Contraception: Vasectomy PAST MEDICAL HISTORY Diagnosis Date Arthritis Embolism and thrombosis of unspecified site 07/12/06 blood clot in left leg Hepatitis in other infectious diseases classified elsewhere Hypertension PMH - PAST MEDICAL HISTORY OF DVT DURING Snoring PAST SURGICAL HISTORY Procedure Laterality Date ANESTHESIA ARTHROSCOPIC PROCEDURE ANKLE AND FOOT CARDIAC CATHETERIZATION HX fall COLONOSCOPY FLX [...] Colon Cancer Father other (triple bypass) Father CT x 2 other (near kidney/liver failure) Father [...] external genitalia normal, normal Bartholin's glands, urethra, [place]'s glands, no vulvar lesions, no cervical lesions, [...] or sooner as needed Franci Metcalf MD [facility] 04-13-2023 Note HNO ID: [id number] Author: Rebecca Sena Mammo Tech Service: ? 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 Postmenopausal: yes HRT use: No. 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 LMP: 09/14/2006, Ablation Age at Menarche: Age at First : Age at Menopause: Plumber Maintenance History Comments: Sexual Activity: Yes; Male; husbands [...] Colon Cancer Father other (triple bypass) Father CT x 2 other (near kidney/liver failure) Father [...] external genitalia normal, normal Bartholin's glands, urethra, [place]'s glands, no vulvar lesions, no cervical lesions, [...] Franci Metcalf MD documented in this encounter [facility] 04-13-2023 History of Presen t illness Narrative Radiology Service Progress Note PATIENT NAME: Serafin Pruett DATE OF SERVICE: April 13, 2023 [...] Jaspreet Lizama April 13, 2023 1:45 PM documented in this encounter [facility] 07-22-2022 Miscellaneous Notes 2016 colonoscopy report faxed to Dr. Brett Anders. Fax confirmation sheet received. Alanna Lechuga RN Patient called in requesting Colonoscopy report sent to brett anders office. Berenice Villagran LPN documented in this encounter [facility] 04-01-2022 Miscellaneous Notes April 01, 2022 PID: [id number] Serafin Pruett [address] [place] [address] Dear Ms. Pruett, We are pleased to [...] report will be kept on file at [facility] as part of your permanent medical record and are available for your continuing care. Thank you for allowing us to help in meeting your health care needs. Sincerely, Dr. Dsouza Interpreting Radiologist [facility] (Normal over 40) documented in this encounter [facility] 04-01-2022 History of Presen t illness Narrative Radiology Service Progress Note PATIENT NAME: Serafin Pruett DATE OF SERVICE: April 01, 2022 [...] DATA: Not applicable SIGNED BY: Pily Barry [employer]over[employer] April 01, 2022 9:55 AM documented in this encounter [facility] 04-01-2022 History of Presen t illness Narrative Serafin is a 62 year old who presents for an annual gynecologic exam without complaints. Postmenopausal: yes HRT use: No. 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 LMP: 09/14/2006, Ablation Age at Menarche: Age at First : Age at Menopause: Plumber Maintenance History Comments: Sexual Activity: Yes; Male; husbands [...] Laparoscopy, laser PAST SURGICAL HISTORY OF 11/22/2006 Altafasure PAST SURGICAL HISTORY OF 2004 left bunionectomy UTERINE ARTERY EMBOLIZ 08/2009 FAMILY HISTORY Problem Relation Age of Onset Cancer Mother colon other (pulmonary fibrosis) Mother other (back surgery) Mother Hypertension Father Prostate Cancer Father Stroke Father Colon Cancer Father other (triple bypass) Father CT x 2 other (near kidney/liver failure) Father [...] external genitalia normal, normal Bartholin's glands, urethra, [place]'s glands, no vulvar lesions, no cervical lesions, [...] Franci Metcalf MD documented in this encounter [facility] 03-08-2022 Miscellaneous Notes 11/10 COLON LODI Patient scheduled for colon consult in office with Diane Reynoso 03/08 Nettie Devine Reinforcing Steel Erector Patient calling to schedule colonoscopy. States she received letter stating she was due. Please contact patient to facilitate. documented in this encounter [facility] 03-08-2022 History of Presen t illness Narrative HISTORY AND PHYSICAL Serafin Pruett 1960 REFERRING PHYSICIAN: Self CHIEF COMPLAINT: Consult (colonoscopy) HPI: The patient is a 62 year old female referred for endoscopy. Serafin notes no colon complaints. Patient denies any change in bowel habits, weight changes, blood in stools, black tarry stools or abdominal pain. NOTES family history of colon cancer. Serafin has undergone prior endoscopy. Most recent colonoscopy [...] Colon Cancer Father other (triple bypass) Father CT x 2 other (near kidney/liver failure) Father Emphysema Brother Cancer Maternal Grandmother Breast Cancer Colon Cancer Maternal Grandmother Stroke Paternal Grandmother Heart Paternal Grandfather Cancer Maternal Aunt Abdominal Cancer ??etiology REVIEW OF SYMPTOMS: The review of systems data was entered by the nurse and reviewed by ne Nursing Notes: Mary Deutsch RN 03/08/2022 8:12 [...] Mammogram screening? 2020 Last Colonoscopy: 2016 Mary Deustch RN I have confirmed and edited as [...] patient was offered a surgery/procedure at a [facility] facility. I have counseled the patient regarding [...] Diane Reynoso PA-C documented in this encounter [facility] 03-08-2022 Nurse Note REVIEW OF SYSTEMS: General: [...] patient's last Mammogram screening? 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/2012 documented as of this encounter (statuses as of 03/08/2022) [facility] History of Past illness Narrative* Problem Noted Date Resolved Date Embolism and thrombosis of unspecified site 06/1709/22/2012 Overview: blood clot in right leg Leiomyoma of uterus, unspecified 06/18/2005 09/22/2012 Irregular menstrual cycle 06/18/20052012 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 09/22/2012 documented as of this encounter (statuses as of 03/31/2022) [facility] History of Past illness Narrative* Problem Noted Date Resolved Date Embolism and thrombosis of unspecified site 06/1709/22/2012 Overview: blood clot in right leg Leiomyoma of uterus, unspecified 06/18/2005 09/22/2012 Irregular menstrual cycle 06/18/20052012 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 09/22/2012 documented as of this encounter (statuses as of 04/01/2022) [facility] History of Past illness Narrative* Problem Noted Date Resolved Date Embolism and thrombosis of unspecified site 06/1709/22/2012 Overview: blood clot in right leg Leiomyoma of uterus, unspecified 06/18/2005 09/22/2012 Irregular menstrual cycle 06/18/20052012 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 09/22/2012 documented as of this encounter (statuses as of 04/03/2022) [facility] History of Past illness Narrative* Problem Noted Date Resolved Date Embolism and thrombosis of unspecified site 06/1709/22/2012 Overview: blood clot in right leg Leiomyoma of uterus, unspecified 06/18/2005 09/22/2012 Irregular menstrual cycle 06/18/20052012 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 09/22/2012 documented as of this encounter (statuses as of 07/22/2022) [facility] History of Past illness Narrative* Problem Noted Date Diagnosed Date Resolved Date Embolism and thrombosis of unspecified site 07/12/2006 09/22/2012 Overview: blood clot in right leg Leiomyoma of uterus, unspecified 06/18/2005 09/22/2012 Irregular menstrual cycle 06/18/2005 Iron deficiency anemia secon alesia to blood loss (chronic) 06/18/2005 09/22/2012 documented as of this encounter (statuses as of 03/20/2023) [facility] History of Past illness Narrative* Problem Noted Date Diagnosed Date Resolved Date Embolism and thrombosis of unspecified site 07/12/2006 09/22/2012 Overview: blood clot in right leg Leiomyoma of uterus, unspecified 06/18/2005 09/22/2012 Irregular menstrual cycle 06/18/2005 Iron deficiency anemia secon alesia to blood loss (chronic) 06/18/2005 09/22/2012 documented as of this encounter (statuses as of 04/14/2023) [facility] History of Past illness Narrative* Problem Noted Date Diagnosed Date Resolved Date Embolism and thrombosis of unspecified site 07/12/2006 09/22/2012 Overview: blood clot in right leg Leiomyoma of uterus, unspecified 06/18/2005 09/22/2012 Irregular menstrual cycle 06/18/2005 Iron deficiency anemia secon alesia to blood loss (chronic) 06/18/2005 09/22/2012 documented as of this encounter (statuses as of 04/14/2023) [facility] History of Past illness Narrative* Problem Noted Date Diagnosed Date Resolved Date Embolism and thrombosis of unspecified site 07/12/2006 09/22/2012 Overview: blood clot in right leg Leiomyoma of uterus, unspecified 06/18/2005 09/22/2012 Irregular menstrual cycle 06/18/2005 Iron deficiency anemia secon alesia to blood loss (chronic) 06/18/2005 09/22/2012 documented as of this encounter (statuses as of 04/16/2023) [facility] Diagnosis Encounter for screening for malignant neoplasm of colon- Primary Special screening for malignant neoplasms, colon Family history of colon cancer Family history of malignant neoplasm of gastrointestinal tract Tortuous colon Volvulus [facility] Diagnosis Family history of colon cancer- Primary Family history of malignant neoplasm of gastrointestinal tract [facility] Diagnosis Encounter for gynecological examination (general) (routine) without abnormal findings- Primary Encounter for screening mammogram for breast cancer Obesity, Class I, BMI 30-34.9 Obesity, unspecified [facility] Diagnosis Encounter for gynecological examination (general) (routine) without abnormal findings Encounter for screening mammogram for breast cancer [facility] Diagnosis Encounter for gynecological examination (general) (routine) without abnormal findings- Primary Encounter for screening mammogram for breast cancer [facility] Diagnosis Encounter for screening mammogram for breast cancer documented in this encounter [facility] for referral (narrative)* Outpatient Procedure (Routine) - Closed Specialty Diagnoses / Procedures Referred By Иван t Referred To Contact [facility] Diagnoses Family history of colon cancer Procedures COLONOSCOPY SCREENING COLONOSCOPY SCREENING COLONOSCOPY FLX DX W/COLLJ SPEC WHEN Joelle Osman MD [address] [place] [address] [facility] [place] [address] Referral ID Status Reason Start Date Expiration Date V isits Requested Visits Authorized [id number] Closed Auto-Generate d Referral 03/08/2022 03/08/2023 1 1 [facility] for referral (narrative)* Diagnostic Procedure Only (Routine) - Pending Review Specialty Diagnoses / Procedures Referred By Contac t Referred To Contact [facility] Diagnoses Encounter for screening mammogram for breast cancer Procedures ROSIE SCREENING W NICOLLE SCREENING DIGITAL BREAST TOMOSYNTHESIS BI SCREENING MAMMOGRAPHY BI 2-VIEW BREAST INC Franci Cruz MD [address] [place] [address] [facility] [address] [place] [address] Referral ID Status Reason Start Date Expiration Date Visits Requested Visits Authorized [id number] Pending Review Auto-Generat ed Referral 05/01/2023 1 1 [facility] for referral (narrative)* Diagnostic Procedure Only (Routine) - Closed Specialty Diagnoses / Procedures Referred By Иван christine Referred To Contact [facility] Diagnoses Encounter for gynecological examination (general) (routine) without abnormal findings Encounter for screening mammogram for breast cancer Procedures ROSIE SCREENING SCREENING MAMMOGRAPHY BI 2-VIEW BREAST INC Franci Cruz MD [address] [place] [address] [facility] [address] [place] [address] Referral ID Status Reason Start Date Expiration Date V isits Requested Visits Authorized [id number] Closed Auto-Generate d Referral 04/01/2022 05/15/2022 1 1 [facility] for referral (narrative)* Diagnostic Procedure Only (Routine) - Pending Review Specialty Diagnoses / Procedures Referred By Иван christine Referred To Contact [facility] Diagnoses Encounter for gynecological examination (general) (routine) without abnormal findings Encounter for screening mammogram for breast cancer Procedures ROSIE SCREENING SCREENING MAMMOGRAPHY BI 2-VIEW BREAST INC Franci Cruz MD [address] [place] [address] [facility] [address] [place] [address] Referral ID Status Reason Start Date Expiration Date Visits Requested Visits Authorized [id number] Pending Review Auto-Generat ed Referral 3 05/12/2024 1 1 [facility] for visit Narrative* Diagnostic Procedure Only (Routine) - Closed Specialty Diagnoses / Procedures Referred By Иван christine Referred To Contact [facility] Diagnoses Encounter for gynecological examination (general) (routine) without abnormal findings Encounter for screening mammogram for breast cancer Procedures ROSIE SCREENING SCREENING MAMMOGRAPHY BI 2-VIEW BREAST INC Franci Cruz MD [address] [place] [address] [facility] [address] [place] [address] Referral ID Status Reason Start Date Expiration Date V isits Requested Visits Authorized [id number] Closed Auto-Generate d Referral 04/01/2022 05/15/2022 1 1 [facility] for visit Narrative* Diagnostic Procedure Only (Routine) - Closed Specialty Diagnoses / Procedures Referred By Иван christine Referred To Contact [facility] Diagnoses Encounter for screening mammogram for breast cancer Procedures ROSIE SCREENING W NICOLLE SCREENING DIGITAL BREAST TOMOSYNTHESIS BI SCREENING MAMMOGRAPHY BI 2-VIEW BREAST INC Franci Cruz MD [address] [place] [address] [facility] [address] [place] [address] Referral ID Status Reason Start Date Expiration Date V isits Requested Visits Authorized [id number] Closed Auto-Generate d Referral 04/01/2022 05/01/2023 1 0 [facility] Summary Purpose Family History No Family History [...] or prosecute any alcohol or drug abuse patient.[facility] the event this information is protected by the Federal Confidentiality of Alcohol and Drug Abuse Patient Records regulations: The Federal rules restrict any use of the information to criminally investigate or prosecute any alcohol or drug abuse patient.[facility] HospitalIn the event this information is protected by the Federal Confidentiality of Alcohol and Drug Abuse Patient Records regulations: The Federal rules restrict any use of the information to criminally investigate or prosecute any alcohol or drug abuse patient.[facility] the event this information is protected by the Federal Confidentiality of Alcohol and Drug Abuse Patient Records regulations: The Federal rules restrict any use of the information to criminally investigate or prosecute any alcohol or drug abuse patient.[facility] the event this information is protected by the Federal Confidentiality of Alcohol and Drug Abuse Patient Records regulations: The Federal rules restrict any use of the information to criminally investigate or prosecute any alcohol or drug abuse patient.[facility] the event this information is protected by the Federal Confidentiality of Alcohol and Drug Abuse Patient Records regulations: The Federal rules restrict any use of the information to criminally investigate or prosecute any alcohol or drug abuse patient.[facility] the event this information is protected by the Federal Confidentiality of Alcohol and Drug Abuse Patient Records regulations: The Federal rules restrict any use of the information to criminally investigate or prosecute any alcohol or drug abuse patient.[facility] the event this information is protected by the Federal Confidentiality of Alcohol and Drug Abuse Patient Records regulations: The Federal rules restrict any use of the information to criminally investigate or prosecute any alcohol or drug abuse patient.[facility] the event this information is protected by the Federal Confidentiality of Alcohol and Drug Abuse Patient Records regulations: The Federal rules restrict any use of the information to criminally investigate or prosecute any alcohol or drug abuse patient.[facility] Reason for Visit (unrecogniz ed section and content) Reason Comments Consult colonoscopy Specialty Diagnoses / Procedures Referred By Иван t Referred To Contact General Surgery / GENERAL SURGERY Diagnoses COLONOSCOPY RECALL LETTER Procedures NEW DDI PATIENT Self Diane Reynoso PA-C [address] [place] [address] Referral ID Status Reason Start Date Expiration Date Visits Re quested Visits Authorized [id number] Closed 03/08/2022 05/15/2022 1 1 Reason Comments 03/25 COLON LODI Reason Comments Yearly Exam Specialty Diagnoses / Procedures Referred By Иван t Referred To Contact [facility] Diagnoses annual Procedures EST [facility] ANNUAL PATIENT Self Franci Metcalf MD [address] [place] [address] Referral ID Status Reason Start Date Expiration Date Visits Re quested Visits Authorized [id number] Closed 04/01/2022 05/15/2022 1 1 Reason Comments Results Specialty Diagnoses / Procedures Referred By Иван t Referred To Contact [facility] Diagnoses Encounter for gynecological examination (general) (routine) without abnormal findings Annual exam Procedures WELLNESS EXAMS EST 40-64 YRS EST [facility] ANNUAL PATIENT Self Franci Metcalf MD [address] [place] [address] Referral ID Status Reason Start Date Expiration Date Visits Re quested Visits Authorized [id number] Closed 03/28/2023 05/15/2023 1 1 Care Teams (unrecognized sec tion and content) Qa Tech Relationship Specialty Start Date End Date Brett Anders [address] [place] [address] PCP - General 08/13/03 Qa Tech Relationship Specialty Start Date End Date Brett Anders [address] [place] [address] PCP - General 08/13/03 Qa Tech Relationship Specialty Start Date End Date Brett Anders [address] [place] [address] PCP - General 08/13/03 Qa Tech Relationship Specialty Start Date End Date Brett Anders [address] [place] [address] PCP - General 08/13/03 Qa Tech Relationship Specialty Start Date End Date Brett Anders [address] [place] [address] PCP - General 08/13/03 Qa Tech Relationship Specialty Start Date End Date Brett Anders [address] [place] [address] PCP - General 08/13/03 Qa Tech Relationship Specialty Start Date End Date Brett Anders [address] [place] [address] PCP - General 08/13/03 Qa Tech Relationship Specialty Start Date End Date Brett Anders [address] [place] [address] PCP - General 08/13/03 Qa Tech Relationship Specialty Start Date End Date Brett Anders [address] [place] [address] PCP - General 08/13/03 INFORMATION SOURCE (unrecogn ized section and content) DATE CREATED AUTHOR 03/27/2022 [facility] DATE CREATED AUTHOR AUTHOR'S ORGANIZ ATION 04/19/2023 [facility] FOR RECORDS PERTAINING TO PATIENTS WHO [...] BE BASED ON THE PRIMARY CLINICAL RECORDS. Why Not Give Back [facility]. provides no warranty or guarantee of the accuracy or completeness of information in this document.
[2024-03-13 15:25] LABS: Protein, Urine (Random) 32.6 mg/dL (<11.9); Protein:Creat Ratio 667 mg/g CRE (0-200)
[2024-03-13 15:28] LABS: Partial Thromboplast Time 27.2 Seconds (24.1-36.2)
[2024-03-13 15:49] LABS: AST(SGOT) 30 U/L (15-37); Alanine Aminotransfer ALT/SGPT 27 U/L (13-56); Albumin, Serum 3.2 g/dL (3.2-5.0); Alkaline Phosphatase 97 U/L (45-117); Bilirubin, Direct 0.18 mg/dL (0.00-0.30); Cholesterol 153 mg/dL (200); Globulin 3.2 g/dL (2.2-4.2); High Density Lipoprotein 85 mg/dL; Protein, Total 6.4 g/dL (6.4-8.2); Triglycerides 63 mg/dL; Very Low Density Lipoprotein 13 mg/dL (5-40)
[2024-03-16 00:07] LABS: Protein C, Functional 100 % (73-180); Protein S, Free 119 % (61-136); Protein S, Total 113 % (60-150)
== END | disposition home or self-care (01) ==
PROVIDERS: PCP Family Medicine; Referring Provider Nurse Practitioner Gerontology; Visit Provider Nurse Practitioner Gerontology
DX: I80.209 Phlebitis and thrombophlebitis of unspecified deep vessels of unspecified lower extremity (principal); I10 Essential (primary) hypertension
CPT/HCPCS: 36415; 80061; 80076; 82570; 84156; 85303; 85305; 85306; 85730

== ENCOUNTER → 2024-04-03 | Outpatient (CLI) | payer OTHER, SELFPAY ==
--- NOTE | 2024-04-03 13:43 | STRESSREP ---
Stress Test Report Exercise myocardial perfusion stress test. 64-year-old lady with a history of chest pain Stress protocol: Resting EKG demonstrates normal sinus rhythm with a rate of 66 bpm resting blood pressure is 126/82 mmHg. The patient exercised according to the regular [facility] protocol for a total duration of 6 minutes and 30 seconds attaining a maximum heart rate of 164 bpm which was 104% of maximum predicted heart rate; the maximum workload was 8.5 metabolic equivalents. At rest there were no ST or T wave changes noted to suggest ischemia and at peak exercise upsloping ST changes only were noted which did not meet the criteria for ischemia. No clinical angina was noted the test was terminated due to the target heart rate being achieved/fatigue. The peak blood pressure was 192/82 mmHg. Rate-pressure product was 28,800. Myocardial perfusion protocol. 12.0 mCi of technetium 99m sestamibi was injected at rest. The patient exercised according to regular [facility] protocol for total duration of 6-1/2 minutes and at peak exercise 34.5 mCi of technetium 99m sestamibi was injected stress images were obtained stress and rest images were reconstructed in comparing the short axis vertical long and horizontal long axis. Gated images were also obtained. Perfusion SPECT analysis: Review of the stress images demonstrate normal uptake of tracer noted in all areas of the myocardium. The resting images similarly demonstrate normal uptake of tracer noted in all areas of the myocardium. No areas of reversibility are noted to suggest ischemia no previous infarct was noted. Gated SPECT analysis: The gated ejection fraction is 62%. Conclusion: Normal exercise myocardial perfusion stress test at a moderate workload Preserved ejection fraction.
== END | disposition home or self-care (01) ==
PROVIDERS: PCP Family Medicine; Referring Provider Nurse Practitioner Gerontology; Visit Provider Nurse Practitioner Gerontology
DX: R07.9 Chest pain, unspecified (principal); I25.10 Atherosclerotic heart disease of native coronary artery without angina pectoris
CPT/HCPCS: 78452; 93017; A9500

== ENCOUNTER → 2024-05-25 | Outpatient (CLI) | payer OTHER, SELFPAY ==
[2024-05-25 12:07] LABS: Absolute Lymphocyte Count 1.24 X10^3/uL (0.83-4.51); Absolute Neutrophil Count 3.5 X10^3/uL (2.0-7.7); Basophil# 0.05 X10^3/uL; Basophil% 0.9 % (0-1); Eosinophil# 0.31 X10^3/uL; Eosinophils% 5.5 % (0-5); Hematocrit 39.9 % (37-47); Hemoglobin 13.1 g/dL (12.0-15.0); Lymphocyte # 1.24 X10^3/ul (0.83-4.51); Lymphocyte % 22.2 % (19-41); Mean Corp Hgb Conc 32.8 g/dL (32-36); Mean Corpuscular Hgb 30.8 pg (27.0-32.0); Mean Corpuscular Volume 93.7 fL (81-99); Mean Platelet Vol. 9.7 fl (6.2-12.0); Monocyte# 0.43 X10^3/uL; Monocyte% 7.7 % (0-10); NRBC Flagged by Analyzer 0 % (0-5); Neutrophil # 3.54 X10^3/uL (2.7-7.7); Neutrophil % 63.3 % (47-70); Platelet Count 279 K/mm3 (150-450); RBC Distribution Width CV 12.5 % (11.6-14.6); RBC Distribution Width SD 42.4 fl (35.1-43.9); Red Blood Count 4.26 M/mm3 (4.2-5.4); White Blood Count 5.6 K/mm3 (4.4-11.0)
[2024-05-25 12:32] LABS: AST(SGOT) 38 U/L (15-37); Alanine Aminotransfer ALT/SGPT 41 U/L (13-56); Albumin, Serum 3.2 g/dL (3.2-5.0); Alkaline Phosphatase 109 U/L (45-117); Anion Gap 4 (5-15); BUN 17 mg/dL (7-18); BUN/Creat Ratio 24.6 RATIO (10-20); Calcium,Total 9.1 mg/dL (8.5-10.1); Chloride 106 mmol/L (98-107); Creatinine, Serum 0.69 mg/dL (0.55-1.02); EST Glomerular Filtration Rate 91 mL/min (>60); Est Glom Filt Rate - Afr Amer 110 mL/min (>60); Globulin 3.2 g/dL (2.2-4.2); Glucose 79 mg/dL (74-106); Protein, Total 6.4 g/dL (6.4-8.2); Sodium Level 140 mmol/L (136-145)
== END | disposition home or self-care (01) ==
LOC: MTLAB 10:04
PROVIDERS: PCP Family Medicine; Referring Provider Internal Medicine Rheumatology; Visit Provider Internal Medicine Rheumatology
DX: M06.4 Inflammatory polyarthropathy (principal)
CPT/HCPCS: 36415; 80053; 85025

== ENCOUNTER → 2024-07-27 | Outpatient (CLI) | payer OTHER, SELFPAY ==
[2024-07-27 17:54] LABS: Absolute Lymphocyte Count 1.32 X10^3/uL (0.83-4.51); Absolute Neutrophil Count 4.1 X10^3/uL (2.0-7.7); Basophil# 0.06 X10^3/uL; Basophil% 0.9 % (0-1); Eosinophil# 0.26 X10^3/uL; Eosinophils% 4.1 % (0-5); Hematocrit 36.7 % (37-47); Hemoglobin 12.4 g/dL (12.0-15.0); Lymphocyte # 1.32 X10^3/ul (0.83-4.51); Lymphocyte % 20.8 % (19-41); Mean Corp Hgb Conc 33.8 g/dL (32-36); Mean Corpuscular Hgb 31.5 pg (27.0-32.0); Mean Corpuscular Volume 93.1 fL (81-99); Mean Platelet Vol. 9.7 fl (6.2-12.0); Monocyte# 0.56 X10^3/uL; Monocyte% 8.8 % (0-10); NRBC Flagged by Analyzer 0 % (0-5); Neutrophil # 4.11 X10^3/uL (2.7-7.7); Neutrophil % 64.9 % (47-70); Platelet Count 284 K/mm3 (150-450); RBC Distribution Width CV 12.5 % (11.6-14.6); RBC Distribution Width SD 42.9 fl (35.1-43.9); Red Blood Count 3.94 M/mm3 (4.2-5.4); White Blood Count 6.3 K/mm3 (4.4-11.0)
[2024-07-27 18:48] LABS: ALB/GLOB Ratio 1.5 RATIO (0.9-2.4); AST(SGOT) 36 U/L (<=31); Alanine Aminotransfer ALT/SGPT 26 U/L (<=34); Albumin, Serum 3.6 g/dL (3.4-4.8); Alkaline Phosphatase 100 U/L (35-104); Anion Gap 10 (5-15); BUN 14 mg/dL (4-19); BUN/Creat Ratio 19.5 RATIO (10-20); Carbon Dioxide 26.3 mmol/L (21.0-32.0); Chloride 104 mmol/L (98-108); Creatinine, Serum 0.73 mg/dL (0.70-1.20); EST Glomerular Filtration Rate 93 (>60); Globulin 2.3 g/dL (2.2-4.2); Glucose 78 mg/dL (70-99); Sodium Level 141 mmol/L (133-145); Total Bilirubin 0.26 mg/dL (0.00-1.30)
== END | disposition home or self-care (01) ==
LOC: MTLAB 16:06
PROVIDERS: PCP Family Medicine; Referring Provider Internal Medicine Rheumatology; Visit Provider Internal Medicine Rheumatology
DX: M06.4 Inflammatory polyarthropathy (principal); Z79.899 Other long term (current) drug therapy
CPT/HCPCS: 36415; 80053; 85025

== ENCOUNTER → 2024-10-29 | Outpatient (CLI) | payer OTHER, SELFPAY ==
[2024-10-29 18:04] LABS: Absolute Lymphocyte Count 1.28 X10^3/uL (0.83-4.51); Basophil# 0.04 X10^3/uL; Basophil% 0.7 % (0-1); Eosinophil# 0.38 X10^3/uL; Eosinophils% 6.2 % (0-5); Hematocrit 39.2 % (37-47); Hemoglobin 13.2 g/dL (12.0-15.0); Lymphocyte # 1.28 X10^3/ul (0.83-4.51); Lymphocyte % 20.9 % (19-41); Mean Corp Hgb Conc 33.7 g/dL (32-36); Mean Corpuscular Hgb 31.4 pg (27.0-32.0); Mean Corpuscular Volume 93.3 fL (81-99); Mean Platelet Vol. 10.3 fl (6.2-12.0); Monocyte# 0.43 X10^3/uL; NRBC Flagged by Analyzer 0 % (0-5); Neutrophil # 3.97 X10^3/uL (2.7-7.7); Neutrophil % 64.9 % (47-70); Platelet Count 279 K/mm3 (150-450); RBC Distribution Width CV 12.5 % (11.6-14.6); RBC Distribution Width SD 42.7 fl (35.1-43.9); White Blood Count 6.1 K/mm3 (4.4-11.0)
--- OUTSIDE RECORDS SUMMARY | 2024-10-29 23:23 | XMS RPT_ITS | CCD ---
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 Brett Leon Primary Care Provider Dr. Brett Leon Referring Provider [phone] Keith Mccray Attending Provider PAMELLA TRUJILLO Attending Unavailable JOELLE CASAS Referring Unavailable BRETT LEON Primary Care Unavailable Brett Leon Primary Care Provider [phone] Dr. Brett Leon Primary Care Provider Dr. Brett Leon Referring Provider Dr. Keith Mccray Attending Provider Brett Leon Primary Care Provider Dr. Brett Leon Primary Care Provider Dr. Brett Leon Referring Provider [phone] Janay ART, KAELYN-C Lashawn Attending Provider Dr. Brett Leon Primary Care Provider [phone] Brett Leon Referring Provider [phone] Janay ART, RAMP SERVICE AGENT-C Lashawn Attending Provider Dr. Saud Mccall Attending Provider Jolliff, Brett Keysha Primary Care Provider FRANCI METCALF Referring Unavailable JOLLIFF, BRETT KEYSHA Primary Care Unavailable FRANCI METCALF Attending Unavailable HAURY, WES Referring Unavailable JOLLIFF, BRETT KEYSHA Primary Care Unavailable HAURY, WES Referring Unavailable JOLLIFF, BRETT KEYSHA Primary Care Unavailable Martita RIVERA, Dr. Brett Guzmán Primary Care Provider Brayan RIVERA, Dr. Scott Attending Provider Brayan RIVERA, Dr. Scott Referring Provider Susan Anderson Attending Provider Unavailable Martita RIVERA, Dr. Brett Guzmán Referring Provider Michelle RIVERA, Dr. Gutiérrez Attending Provider Janay ART, Lashawn Referring Unavailable Saud Mccall Attending Unavailable Jolliff, Brett S Primary Care Unavailable Vellanki, Sonia Referring Unavailable Vellanki, Sonia Attending Unavailable Jolliff, Brett S Primary Care Unavailable Janay ART, Lashawn Referring Unavailable Jolliff, Brett S Primary Care Unavailable Shazia, Keith Attending Unavailable Susan Anderson Attending Unavailable Jolliff, Brett S Primary Care Unavailable Janay ART, Lashawn Consulting Unavailable Janay ART, Lashawn Referring Unavailable Jolliff, Brett S Primary Care Unavailable Shazia, Keith Attending Unavailable Jolliff, Brett S Primary Care Unavailable Jolliff, Brett S Referring Unavailable Brock Martinez Attending Unavailable Shazia, Holladay Attending Unavailable Jolliff, Brett S Primary Care Unavailable Jolliff, Brett S Referring Unavailable Janay ART, Lashawn Attending Unavailable Jolliff, Brett S Referring Unavailable Jolliff, Brett S Primary Care Unavailable Janay ART, Lashawn Attending Unavailable Jolliff, Brett S Primary Care Unavailable Vellanki, Sonia Referring Unavailable Vellanki, Sonia Attending Unavailable Jolliff, Brett S Primary Care Unavailable Vellanki, Sonia Attending Unavailable Vellanki, Sonia Referring Unavailable Jolliff, Brett S Primary Care Unavailable Vellanki, Sonia Referring Unavailable Vellanki, Sonia Attending Unavailable Jolliff, Brett S Primary Care Unavailable Lashawn Dahl NP Attending Unavailable Lashawn Dahl NP Referring Unavailable Jokristianiff, Brett S Primary Care Unavailable Lashawn Dahl NP Attending Unavailable Lashawn Dahl NP Referring Unavailable Jocindi Brett S Primary Care Unavailable Janay ART, Lashawn Attending Unavailable Lashawn Dahl NP Referring Unavailable Jokristianiff, Brett S Primary Care Unavailable Keith Mccray Attending Unavailable Pam Dickinson Primary Care Unavailable Keith Mccray Referring Unavailable Janay ART, Lashawn Attending Unavailable Janay ART, Lashawn Referring Unavailable Jokristianiff, Brett S Consulting Unavailable Jolliff, Brett S Primary Care Unavailable Medications Current Medications Medication Drug Class(es) Dates Sig (Normalized) Sig (Original) aspirin 81 mg delayed release oral tablet (20 sources) Nonsteroidal Anti-inflammatory Drug Start: 08-17-2017 take 1 tablet by mouth once daily Aspirin 81 mg tablet,delayed release (DR/EC) Active 81 mg PO daily August 17, 2017 12:00am Start: 03-21-2014 End: 12-23-2015 take 1 tablet by mouth once daily Aspirin 81 MG Tab.Chew Discontinued 81 mg PO DAILY@0800 March 21, 2014 1:00am December 23, 2015 10:03am Start: 02-15-2014 take 1 tablet by juany th once daily ASPIRIN 81 MG TABS One tablet by mouth daily ASPIRIN [id number] Joanna Falcon RN Start: 02-15-2014 take 1 tablet by juany th once daily ASPIRIN 81 MG TABS One tablet by mouth daily ASPIRIN [id number] Joanna Falcon RN Start: 02-15-2014 take 1 tablet by juany th once daily ASPIRIN EC 81 MG TBEC One tablet by mouth daily ASPIRIN [id number] Marjorie Leahy RN ASPIRIN LOW DOSE ORAL Take by mouth. Active ASPIRIN LOW DOSE ORAL Take by mouth. 0 Active Comment on above: Take by mouth. Calcium (13 sources) Phosphate Binder, Calcium Start: 04-29-2005 CALCIUM 500 MG TAB 0 04/29/2005 Active Start: 04-29-2005 CALCIUM 500 MG TAB calcium carbonate 1250 mg / cholecalciferol 500 unt / vitamin k1 0.04 mg chewable tablet (20 sources) Vitamin D, Warfarin Reversal Agent, Vitamin K Start: 03-21-2014 End: 08-17-2017 Calcium-Vitamin D3-Vitamin K (Viactiv) 500-500-40 mg-unit-mcg tablet,chewable Active 1 {tbl} PO daily August 17, 2017 12:00am Start: 03-21-2014 End: 08-17-2017 Calcium-Vitamin D3-Vitamin K Discontinued 1 EACH PO DAILY March 21, 2014 1:00am August 17, 2017 10:22am fluticasone propionate 0.05 mg/actuat metered dose nasal spray (18 sources) Corticosteroid Start: 05-07-2023 Fluticasone Pr opionate 50 mcg/actuation spray,suspension Active 2 NMA INTRANASAL DAILY May 07, 2023 1:00am Start: 05-07-2023 Fluticasone Pr opionate Active 2 SPRAY INTRANASAL DAILY May 07, 2023 1:00am Start: 03-09-2022 fluticasone (F LONASE) 50 mcg/actuation nasal spray 2 Sprays once daily. 03/09/2022 Active Comment on above: 2 Sprays once daily. folic acid 1 mg oral tablet (20 sources) Start: 01-21-2022 take 2 tablets by mouth once daily Folic Acid 1 mg tablet Active 2 mg PO DAILY January 21, 2022 12:00am Start: 01-21-2022 take 2 mg by mouth once daily Folic Acid Active 2 MG PO DAILY January 21, 2022 12:00am Start: 12-30-2021 folic acid 1 m g tablet 12/30/2021 Active hydroxychloroquine sulfate 200 mg oral tablet (20 sources) Antirheumatic Agent Start: 11-13-2008 take 1 tablet by mouth twice daily at mealtime Hydroxychloroquine 200 MG tablet Active 200 mg PO TWICE DAILY WITH MEALS March 21, 2014 1:00am Comment on above: Take one(1) tablet t wice daily. lisinopril 20 mg oral tablet (20 sources) Angiotensin Converting Enzyme Inhibitor Start: 02-15-2014 End: 03-08-2024 take 1 tablet by mouth once daily Lisinopril 20 mg tablet Active 20 mg PO DAILY March 08, 2024 9:22am Comment on above: Take 20 mg by mouth once daily. methotrexate 2.5 mg oral tablet (20 sources) Folate Analog Metabolic Inhibitor Start: 01-21-2022 Methotrexate Sodium 2.5 mg tablet Active 15 mg PO EVERY WEEK January 21, 2022 12:00am Start: 01-21-2022 take 15 mg by mouth every week Methotrexate Sodium Active 15 MG PO EVERY WEEK January 21, 2022 12:00am Start: 12-30-2021 methotrexate 2 .5 mg tablet 12/30/2021 Active Multivitamin preparation (14 sources) Start: 01-21-2022 take 1 tablet by mouth once daily Multivitamin Active 1 TABLET PO DAILY January 20, 2022 11:00pm Start: 01-21-2022 take 1 tablet by juany th once daily Multivitamin Active 1 TABLET PO DAILY January 21, 2022 12:00am MULTIVITAMIN TAB (13 sources) Start: 04-29-2005 MULTIVITAMIN T AB Take one(1) tablet daily. 0 04/29/2005 Active Comment on above: Take one(1) tablet d aily. Multivitamin tablet (1 source) Start: 01-21-2022 Multivitamin t ablet Active 1 {tbl} PO DAILY January 21, 2022 12:00am Multivitamin With Folic Acid (20 sources) Start: 03-21-2014 take 1 tablet by mouth once daily Multivitamin With Folic Acid Active 1 TABLET PO DAILY March 21, 2014 9:42am Start: 03-21-2014 End: 01-21-2022 take 1 tablet by mouth once daily Multivitamin With Folic Acid Discontinued 1 TABLET PO DAILY March 21, 2014 12:00am January 21, 2022 2:17pm Start: 03-21-2014 End: 01-21-2022 take 1 tablet by mouth once daily Multivitamin With Folic Acid Discontinued 1 TABLET PO DAILY March 21, 2014 1:00am January 21, 2022 3:17pm Start: 03-21-2014 take 1 tablet by juany th once daily Multivitamin With Folic Acid Active 1 TABLET PO DAILY March 21, 2014 1:00am polyethylene glycol 3350 [id number] mg / potassium chloride 2970 mg / sodium bicarbonate 6740 mg / sodium chloride 5860 mg / sodium sulfate 52439 mg powder for oral solution (1 source) Osmotic Laxative Start: 03-08-2022 End: 03-08-2022 peg 3350-Electrolytes (GOLYTELY) 236-22.74-6.74 -5.86 gram suspension Take 4,000 mL by mouth one time only for 1 dose. 1 Each 0 03/08/2022 03/08/2022 Active Comment on above: Take 4,000 mL by juany th one time only for 1 dose. Completed/Discontinued Medications Medication Drug Class(es) Dates Sig (Normalized) Sig (Original) acetaminophen 325 mg / oxyCODONE hydrochloride 5 mg oral tablet (20 sources) Opioid Agonist Start: 12-23-2015 End: 08-19-2017 Oxycodone-Acetamino phen 1 TABLET tablet Discontinued 1 - 2 {tbl} PO 4 TIMES DAILY NEEDED as needed for Pain December 23, 2015 10:04am August 19, 2017 11:21am Start: 12-23-2015 End: 08-19-2017 take 1 tablet by mouth four times daily as needed Oxycodone-Acetaminophen Discontinued 1 - 2 TABLET PO 4 TIMES DAILY NEEDED December 23, 2015 10:04am August 19, 2017 11:21am apixaban 5 mg oral tablet (3 sources) Factor Xa Inhibitor Start: 09-07-2023 End: 03-08-2024 take 1 tablet by mouth once Apixaban (Eliquis Dvt-Pe Treat 30d Start) 5 mg (74 tabs) tablets,dose pack Discontinued 0 PO per package directions September 07, 2023 12:00am March 08, 2024 9:21am PO PER PKG DIR betamethasone 0.5 mg/ml topical cream (10 sources) Corticosteroid Start: 03-30-2022 End: 05-28-2024 betamethasone dipropionate (DIPROSONE) 0.05 % cream Apply to affected area twice daily. APPLY TO AFFECTED AREA 03/30/2022 05/28/2024 Discontinued (Other) Comment on above: Apply to affected ar ea twice daily. APPLY TO AFFECTED AREA CALCIUM-VITAMIN D-VITAMIN K CHEW (6 sources) Start: 02-15-2014 take 1 tablet by mouth once daily VIACTIV CHEW One tablet by mouth daily CALCIUM-VITAMIN D-VITAMIN K CHEW [id number] Joanna Falcon RN Start: 02-15-2014 take 1 tablet by juany th once daily VIACTIV CHEW One tablet by mouth daily CALCIUM-VITAMIN D-VITAMIN K CHEW [id number] Joanna Falcon RN cefadroxil 500 mg oral capsule (20 sources) Cephalosporin Antibacterial Start: 12-23-2015 End: 08-17-2017 take 1 capsule by mouth twice daily Cefadroxil 500 MG capsule Discontinued 500 mg PO TWICE A DAY December 23, 2015 12:00am August 17, 2017 10:24am ipratropium bromide 0.042 mg/actuat metered dose nasal spray (1 source) Anticholinergic Start: 05-31-2024 End: 06-28-2024 Ipratropium [place] 42 mcg (0.06 %) spray,non-aerosol Discontinued 2 NMA INTRANASAL THREE TIMES A DAY May 31, 2024 1:00am June 28, 2024 10:01am administer into each nostril meloxicam 7.5 mg oral tablet (20 sources) Nonsteroidal Anti-inflammatory Drug Start: 08-17-2017 End: 08-19-2017 Meloxicam 7.5 mg tablet Discontinued 7.5 mg PO .COMPLEX August 17, 2017 10:23am August 19, 2017 11:21am 7.5 mg PO 1 tablet every 5 days Start: 02-15-2014 End: 08-17-2017 take 1 tablet by mouth every other day Meloxicam 7.5 MG tablet Discontinued 7.5 mg PO EVERY OTHER DAY March 21, 2014 1:00am August 17, 2017 10:24am Start: 02-15-2014 MELOXICAM 7.5 MG TABS one tablet every five days. MELOXICAM [id number] Timo Araiza MD Start: 02-15-2014 take 1 tablet by juany once daily MELOXICAM 7.5 MG TABS One tablet by mouth daily MELOXICAM [id number] Joanna Falcon RN MULTIPLE VITAMIN (4 sources) Start: 02-15-2014 take 1 tablet by mouth once daily MULTIVITAMINS CAPS One tablet by mouth daily MULTIPLE VITAMIN [id number] Joanna Falcon RN MULTIPLE VITAMIN (2 sources) Start: 02-15-2014 take 1 tablet by mouth once daily MULTIVITAMINS CAPS One tablet by mouth daily MULTIPLE VITAMIN [id number] Joanna Falcon RN Start: 02-15-2014 take 1 tablet by juany th once daily MULTIVITAMINS CAPS One tablet by mouth daily MULTIPLE VITAMIN [id number] Joanna Falcon RN Multivitamin With Folic Acid 1 TABLET tablet (1 source) Start: 03-21-2014 End: 01-21-2022 take 1 tablet by mouth once daily Multivitamin With Folic Acid 1 TABLET tablet Discontinued 1 {tbl} PO DAILY March 21, 2014 1:00am January 21, 2022 3:17pm naproxen 500 mg oral tablet (20 sources) Nonsteroidal Anti-inflammatory Drug Start: 07-17-2020 End: 05-07-2023 take 1 tablet by mouth twice daily as needed Naproxen 500 MG tablet Discontinued 500 mg PO TWICE DAILY NEEDED July 17, 2020 1:00am May 07, 2023 3:39am omeprazole 20 mg delayed release oral capsule (20 sources) Proton Pump Inhibitor Start: 03-21-2014 End: 05-28-2024 take 1 capsule by mouth once daily Omeprazole 20 mg capsule,delayed release(DR/EC) Discontinued 20 mg PO DAILY April 12, 2023 3:48pm May 07, 2023 3:39am Start: 02-15-2014 take 1 tablet by juany th once daily [facility] OMEPRAZOLE 20 MG TBEC One tablet by mouth daily OMEPRAZOLE [id number] Marjorie Jenkins PA-C Start: 02-15-2014 take 1 tablet by juany th once daily [facility] OMEPRAZOLE 20 MG TBEC One tablet by mouth daily OMEPRAZOLE [id number] Marjorie Jenkins PA-C Comment on above: Take 20 mg by mouth once daily. simvastatin 20 mg oral tablet (20 sources) HMG-CoA Reductase Inhibitor Start: End: take 1 tablet by mouth at bedtime Simvastatin 20 mg tablet Discontinued 20 mg PO AT BEDTIME April 12, 2023 3:48pm September 07, 2023 9:46am Comment on above: Take 20 mg by mouth. Problems Active Problems Problem Classification Problem Date Documented Da te Episodic/Chronic Abdominal pain (3 sources) Pain in female pelvis; Translations: [Pelvic and perineal pain] Onset: 05-31-2024 05-28-2024 Episodic Benign neoplasm of uterus (6 sources) Uterine leiomyoma; Translations: [Leiomyoma of uterus, unspecified] Onset: 06-18-2005 Resolved: 09-22-2012 09-22-2012 Episodic Coronary atherosclerosis and other heart disease (20 sources) Coronary atherosclerosis; Translations: [Atherosclerotic heart disease of [place] coronary artery without angina pectoris] Onset: 03-08-2024 Chronic Deficiency and other anemia (4 sources) Iron deficiency anemia due to blood loss; Translations: [Iron deficiency anemia secondary to blood loss (chronic)] Onset: 06-18-2005 Resolved: 09-22-2012 09-22-2012 Chronic Digestive congenital anomalies (1 source) Tortuous colon; 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 Disorders of lipid metabolism (20 sources) Hyperlipidemia; Translations: [Hyperlipidemia, unspecified] Onset: 03-22-2014 03-22-2014 Chronic Essential hypertension (20 sources) Hypertensive disorder; Translations: [Essential (primary) hypertension] Onset: 02-15-2014 02-15-2014 Chronic Headache, including migraine (4 sources) Migraine with aura; Translations: [Migraine with aura, not intractable, without status migrainosus] Onset: 01-27-2017 01-27-2017 Chronic Immunizations and screening for infectious disease (1 source) Patient encounter status; Translations: [Encounter for screening for human papillomavirus (HPV)] 05-28-2024 Episodic Other connective tissue disease (3 sources) Pain in left lower limb; Translations: [Pain in left leg] 09-07-2023 Episodic Other non-traumatic joint disorders (6 sources) Arthritis; [...] Chronic Other nutritional; endocrine; and metabolic disorders (12 sources) Obese class I; Translations: [Obesity, unspecified] Onset: 04-01-2022 Chronic Other screening for suspected conditions (not mental disorders or infectious disease) (20 sources) Cardiovascular stress test abnormal; Translations: [Abnormal result of other cardiovascular function study] Onset: 05-28-2024 Episodic Rheumatoid arthritis and related disease (1 source) Inflammatory polyarthropathy; Translations: [Inflammatory polyarthropathy] Onset: 08-07-2024 Chronic Unclassified (6 sources) Aftercare ; Translations: [Encounter for other specified surgical aftercare] Onset: 12-29-2015 12-30-2015 Past or Other Problems Problem Classification Problem Date Documented Da te Episodic/Chronic Aortic and peripheral arterial embolism or thrombosis (4 sources) Vascular disorder; Translations: [Embolism and thrombosis of unspecified artery] Onset: 07-12-2006 Resolved: 09-22-2012 09-22-2012 Chronic Cardiac dysrhythmias (2 sources) Palpitations; Translations: [Palpitations] Onset: 03-08-2024 03-08-2024 Episodic Menstrual disorders (4 sources) Irregular periods; Translations: [Irregular menstruation, unspecified] Onset: 06-18-2005 Resolved: 09-22-2012 09-22-2012 Chronic Nonspecific chest pain (20 sources) Precordial pain; Translations: [Precordial pain] Onset: 02-15-2014 02-15-2014 Episodic Other aftercare (12 sources) Long-term (current) use of other medications; Translations: [Other fdc (current) drug therapy] Onset: 03-22-2014 Resolved: 11-25-2014 11-25-2014 Episodic Other aftercare (2 sources) Other fdc (current) drug therapy; Translations: [Other predatory animal exterminator (current) drug therapy] Onset: 11-25-2014 11-25-2014 Episodic Other and unspecified benign neoplasm (6 sources) Lipoma of head and neck; Translations: [Benign lipomatous neoplasm of skin and subcutaneous tissue of head, face and neck] Onset: 12-29-2015 12-30-2015 Episodic Other circulatory disease (6 sources) Abnormal result of cardiovascular function study, unspecified; Translations: [Abnormal result of cardiovascular function study, unspecified] Onset: 02-15-2014 02-15-2014 Episodic Other infections; including parasitic (20 sources) Personal history of other infectious and parasitic diseases; Translations: [History of 2019 novel coronavirus disease (COVID-19)] Onset: 05-16-2019 01-21-2022 Episodic Other lower respiratory disease (4 sources) Dyspnea; Translations: [Shortness of breath] Onset: 01-27-2017 01-27-2017 Episodic Other nutritional; endocrine; and metabolic disorders (6 sources) Body mass index (BMI) 29.0-29.9, adult; Translations: [Body mass index (BMI) 29.0-29.9, adult] Onset: 05-27-2015 07-05-2016 Episodic Phlebitis; thrombophlebitis and thromboembolism (8 sources) H/O: Deep vein thrombosis; Translations: [Personal history of other venous thrombosis and embolism] Onset: 12-30-2023 09-07-2023 Episodic Residual codes; unclassified (2 sources) FH: Hypertension; Translations: [Family history of ischemic heart disease and other diseases of the circulatory system] 02-15-2014 Episodic Residual codes; unclassified (20 sources) History of cardiac catheterization; Translations: [Other specified postprocedural states] Onset: 03-22-2014 01-21-2022 Episodic Comment on above: Nonobstructive CAD o f mid LAD with 40% stenosis, normal LCX and RCA Residual codes; unclassified (15 sources) Family history of cancer of colon; [...] Test Name Value Interpretation Reference Range Facility Limited Chest CT Cardiac [facility] 10[facility] Cardiac Only [facility] [address] [place] [id number] Cardiac Only MR#: [id number] Acct: [id number] Name: SERAFIN PRUETT Rep #: [id number] : 1960 F 64 From: Robert sesay MD PCP: Dr. Pam Dickinson MD Status: REG REF Study: Limited Chest CT Cardiac Only Date of Exam: Exam# [id number] Ordering Dr: Keith Mccray MD PROCEDURE: LIMITED CHEST CT CARDIAC ONLY REASON FOR EXAM: HTHN/HLD TECHNIQUE: Supine chest CT without contrast, high resolution CT (HRCT) protocol. One or more dose reduction techniques were used (e.g., Automated exposure control, adjustment of the mA and/or kV according to patient size, use of iterative reconstruction technique). Dose report: CTDI L volume: 12.19. DLP: 219.42 COMPARISON: Prior CT scan of the thorax dated May 07, 2023. FINDINGS: Hardware: None Lymph nodes: Small benign-appearing mediastinal lymph nodes. Heart and Vasculature: Coronary artery calcifications are noted. Atherosclerotic calcifications of the thoracic aorta. Thoracic aorta and pulmonary arteries have normal contours; noncontrast technique limits evaluation. Coronary Artery Calcifications: Present Lungs and Airways: The lungs are normally expanded and clear. No septal thickening nodules or abnormal pulmonary opacities. Pleura: No pleural effusion. Upper Abdomen: Unremarkable Bones: Degenerative changes of the thoracic spine. CT/Limited Chest CT Cardiac Only IMPRESSION: Coronary artery calcification (CAC) is is present The lungs are clear. Reading Location: [place] [address] CC: Dr. Pam Dickinson MD; Dr. Keith Mccray MD [place]: Signed Normal [facility] Cardiology Visit Reporton Cardiology Visit Report [facility] [address] [place] [address] OFFICE VISIT Date of Service: 09/11/24 MR#: [id number] Acct: [id number] Name: SERAFIN PRUETT Rep #: [id number] : 1960 Provider: Dr. Keith Mccray MD Age/Sex: 64/F Location: [facility] Status: Signed HPI HPI History of Present Illness Details: Mrs. No is a very pleasant 64 year-old female who presents to the office today for a cardiovascular visit. She has a history of nonobstructive coronary artery disease, hypertension, hyperlipidemia, diffuse arthritis on Plaquenil. She underwent left heart catheterization at [facility] 03/22/14, which demonstrated nonobstructive disease in the range of an eccentric 40% stenosis in the midportion of the LAD which did not appear to be flow-limiting. Her LV function was normal and we elected to treat her with medications. From a cardiac standpoint, the patient is doing well. She does acknowledge occasional racing sensation. She denies SOB, Orthopnea, and PND. She does not have bleeding issues; no blood in urine, stool or nosebleeds. She denies any decrease in energy level, myalgias, or claudication. She does not have edema, or sudden weight gain. She does have occasional lightheadedness. She denies dizziness, lightheadedness, syncopal or near syncopal episodes, and headaches. 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: No Accompanied by: Self Is patient in pain?: No Allergies No Known Allergies Allergy (Verified 09/11/24 10:56) Medications ???Medication ???Instructions ???Recorded ???Confirmed ???Type hydroxychloroquine 200 mg tablet 200 mg PO BIDCM 03/21/14 09/11/24 History aspirin 81 mg tablet,delayed 81 mg PO QDAY 08/17/17 09/11/24 Hi story release calcium 500 mg-vitamin D3 500 1 tab PO QDAY 08/17/17 09/11/24 Hi story unit-vitamin K 40 mcg chewable tablet (Viactiv) folic acid 1 mg tablet 2 mg PO DAILY 01/21/22 09/11/24 Hi story methotrexate sodium 2.5 mg tablet 15 mg PO QWEEK 01/21/22 09/11/24 History multivitamin 1 tab PO DAILY 01/21/22 09/11/24 H istory fluticasone propionate 50 2 spray intranasal DAILY 05/07/23 09/11/24 History mcg/actuation nasal spray,suspension lisinopril 20 mg tablet 20 mg PO DAILY #90 tabs 09/11/24 0 09/11/24 Rx simvastatin 20 mg tablet 20 mg PO QHS #90 tabs 09/11/24 Rx Have you fallen in the past year?: No 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 Osteoarthritis Rheumatoid arthritis Essential hypertension History of 2019 novel coronavirus disease (COVID-19) (08/2019) Atherosclerotic heart disease of [place] coronary artery without angina pectoris Hyperlipidemia Abnormal stress test Chest pain, precordial Head mass Arthritis History of DVT (deep vein thrombosis) Surgical History History of ankle surgery History of colonoscopy S/p bilateral blepharoplasty History of left heart catheterization (03/22/14) History of local excision of skin lesion History of endometrial ablation Family History Brother Congenital heart disease Heart disease Father Hypertension Cancer prostate Mother Pulmonary fibrosis Colon cancer Cancer lung cancer Social History Smoking Status: Never smoker alcohol intake: current alcohol intake frequency: holidays/special occasions only Alcohol type: wine details: occasional substance use type: does not use caffeine: No ROS Const Const: Negative for fatigue, weakness, headache(s), daytime sleepiness or difficulty sleeping ENT ENT: Negative for headache(s), dizziness or Nosebleed/epistaxis Cardio Chest Pain: No Palpitations: No Edema: None Resp Respiratory: Negative for SOB with activity, SOB at rest, SOB orthopnea SOB lying down or Cough GI GI: Negative nausea, vomiting or heartburn Neuro Neuro: Positive for lightheadedness and near syncope; Negative for dizziness, headache(s) or weakness Endo Endo: Negative for fatigue Cardiology Exam Const Appearance: cooperative and no acute distress Nutritional Appearance: obese Orientation: alert and oriented x3 Head Head: normal to inspection Ears: hearing grossly normal bilaterally Nose: external nose normal Face and Sinus: face symmetric Eyes General: appearance normal, both (more content not included)... Normal [facility] Absolute neutrophil countOrd ered By: Sonia Schmidt on 07-27-2024 Neutrophils (Bld) [#/Vol] 4.1 10*3/uL 2.0-7.7 [facility] Anion gap in Serum or Plasma Ordered By: Sonia Schmidt on 07-27-2024 Anion gap [Moles/Vol] 10 mmol/L 5-15 [facility] BUN/creatinine ratioOrdered By: Sonia Schmidt on 07-27-2024 Urea nitrogen/Creatinine [Mass ratio] 19.5 mg/mg 10-20 [facility] Basophil percentageOrdered B y: Sonia Schmidt on 07-27-2024 Basophils/100 WBC (Bld) 0.9 % 0-1 [facility] Bilirubin, totalOrdered By: Soniamegan Schmidt on 07-27-2024 Bilirubin [Mass/Vol] 0.26 mg/dL 0.00-1.30 [facility] CBC W/Diff, Automatedon 07-14 Absolute Lymph 1.32 X10 3/uL Normal 0.83-4.51 [facility] Comment on above: Performed By: #### L 500.4050, L100.0100 #### [facility] [address] [place], [address] Absolute Neut 4.1 X10 3/uL Normal 2.0-7.7 [facility] Comment on above: Performed By: #### L 500.4050, L100.0100 #### [facility] [address] [place], [address] Basophils/100 WBC (Bld) 0.9 % Normal 0-1 [facility] Comment on above: Performed By: #### L 500.4050, L100.0100 #### [facility] [address] [place], [address] Eosinophils/100 WBC (Bld) 4.1 % Normal 0-5 [facility] Comment on above: Performed By: #### L 500.4050, L100.0100 #### [facility] [address] [place], [address] Erythrocyte distribution width (RBC) [Ratio] 12.5 % Normal 11.6-14.6 [facility] Comment on above: Performed By: #### L 500.4050, L100.0100 #### [facility] [address] [place], [address] Hematocrit (Bld) [Volume fraction] 36.7 % Low 37-47 [facility] Comment on above: Performed By: #### L 500.4050, L100.0100 #### [facility] [address] [place], [address] Hemoglobin (Bld) [Mass/Vol] 12.4 g/dL Normal 12.0-15.0 [facility] Comment on above: Performed By: #### L 500.4050, L100.0100 #### [facility] [address] [place], [address] IG% 0.500 Normal 0.0-0.9 [facility] Comment on above: Result Comment: IG% - Immature Granulocytes (promyelocytes, myelocytes and metamyelocytes) > 1% indicates that a LEFT SHIFT is Present. Performed By: #### L 500.4050, L100.0100 #### [facility] [address] [place], [address] Lymphocytes/100 WBC (Bld) 20.8 % Normal 19-41 [facility] Comment on above: Performed By: #### L 500.4050, L100.0100 #### [facility] [address] [place], [address] MCH (RBC) [Entitic mass] 31.5 pg Normal 27.0-32.0 [facility] Comment on above: Performed By: #### L 500.4050, L100.0100 #### [facility] [address] [place], [address] MCHC (RBC) [Mass/Vol] 33.8 g/dL Normal 32-36 [facility] Comment on above: Performed By: #### L 500.4050, L100.0100 #### [facility] [address] [place], [address] MCV (RBC) [Entitic vol] 93.1 fL Normal 81-99 [facility] Comment on above: Performed By: #### L 500.4050, L100.0100 #### [facility] [address] [place], [address] Monocytes/100 WBC (Bld) 8.8 % Normal 0-10 [facility] Comment on above: Performed By: #### L 500.4050, L100.0100 #### [facility] [address] [place], [address] Neutrophils/100 WBC (Bld) 64.9 % Normal 47-70 [facility] Comment on above: Performed By: #### L 500.4050, L100.0100 #### [facility] [address] [place], [address] Nucleated RBC (Bld) [#/Vol] 0 10*3/uL Normal 0-5 [facility] Comment on above: Performed By: #### L 500.4050, L100.0100 #### [facility] [address] [place], [address] Platelet mean volume (Bld) [Entitic vol] 9.7 fL Normal 6.2-12.0 [facility] Comment on above: Performed By: #### L 500.4050, L100.0100 #### [facility] [address] [place], [address] Platelets (Bld) [#/Vol] 284 10*3/uL Normal 150-450 [facility] Comment on above: Performed By: #### L 500.4050, L100.0100 #### [facility] [address] [place], [address] RBC (Bld) [#/Vol] 3.94 10*6/uL Low 4.2-5.4 [facility] Comment on above: Performed By: #### L 500.4050, L100.0100 #### [facility] [address] [place], [address] RDW SD 42.9 fl Normal 35.1-43.9 [facility] Comment on above: Performed By: #### L 500.4050, L100.0100 #### [facility] [address] [place], [address] WBC (Bld) [#/Vol] 6.3 10*3/uL Normal 4.4-11.0 [facility] Comment on above: Performed By: #### L 500.4050, L100.0100 #### [facility] [address] [place], [address] Carbon dioxide, total [Moles /volume] in Central venous bloodOrdered By: Sonia Schmidt on 07-27-2024 CO2 [Moles/Vol] 26.3 mmol/L 21.0-32.0 [facility] Chloride assayOrdered By: Demarcus Schmidt on 07-27-2024 Chloride [Moles/Vol] 104 mmol/L 98-108 [facility] Comprehensive Metabolic Prof ilon 07-27-2024 Albumin [Mass/Vol] 3.6 g/dL Normal 3.4-4.8 [facility] Comment on above: Performed By: #### L 500.4050, L100.0100 #### [facility] [address] [place], [address] Albumin/Globulin [Mass ratio] 1.5 {ratio} Normal 0.9-2.4 [facility] Comment on above: Performed By: #### L 500.4050, L100.0100 #### [facility] [address] [place], [address] ALK PHOS 100 U/L Normal 35-104 [facility] Comment on above: Performed By: #### L 500.4050, L100.0100 #### [facility] [address] [place], [address] ALT [Catalytic activity/Vol] 26 U/L Normal <=34 [facility] Comment on above: Performed By: #### L 500.4050, L100.0100 #### [facility] [address] [place], [address] AST [Catalytic activity/Vol] 36 U/L High <=31 [facility] Comment on above: Performed By: #### L 500.4050, L100.0100 #### [facility] [address] [place], [address] Bilirubin [Mass/Vol] 0.26 mg/dL Normal 0.00-1.30 [facility] Comment on above: Performed By: #### L 500.4050, L100.0100 #### [facility] [address] [place], [address] BUN/CRE 19.5 RATIO Normal 10-20 [facility] Comment on above: Performed By: #### L 500.4050, L100.0100 #### [facility] [address] [place], [address] Calcium [Mass/Vol] 9.0 mg/dL Normal 7.6-11.0 [facility] Comment on above: Performed By: #### L 500.4050, L100.0100 #### [facility] [address] [place], [address] Chloride [Moles/Vol] 104 mmol/L Normal 98-108 [facility] Comment on above: Performed By: #### L 500.4050, L100.0100 #### [facility] [address] [place], [address] CO2 [Moles/Vol] 26.3 mmol/L Normal 21.0-32.0 [facility] Comment on above: Performed By: #### L 500.4050, L100.0100 #### [facility] [address] [place], [address] Creatinine [Mass/Vol] 0.73 mg/dL Normal 0.70-1.20 [facility] Comment on above: Performed By: #### L 500.4050, L100.0100 #### [facility] [address] [place], [address] GAP 10 Normal 5-15 [facility] Comment on above: Performed By: #### L 500.4050, L100.0100 #### [facility] [address] [place], [address] GFR/1.73 sq M.predicted among non-blacks MDRD (S/P/Bld) [Vol rate/Area] 93 mL/min/{1.73_m2} Normal >60 [facility] Comment on above: Result Comment: mL/m in/1.73m2 CKD-EPI Creatinine Equation (2020) Performed By: #### L 500.4050, L100.0100 #### [facility] [address] [place], [address] Globulin (S) [Mass/Vol] 2.3 g/dL Normal 2.2-4.2 [facility] Comment on above: Performed By: #### L 500.4050, L100.0100 #### [facility] [address] [place], [address] Glucose [Mass/Vol] 78 mg/dL Normal 70-99 [facility] Comment on above: Performed By: #### L 500.4050, L100.0100 #### [facility] [address] [place], [address] Potassium [Moles/Vol] 4.0 mmol/L Normal 3.3-5.1 [facility] Comment on above: Performed By: #### L 500.4050, L100.0100 #### [facility] [address] [place], [address] Sodium [Moles/Vol] 141 mmol/L Normal 133-145 [facility] Comment on above: Performed By: #### L 500.4050, L100.0100 #### [facility] [address] [place], [address] T PROT 6.0 g/dL Normal 5.9-8.4 [facility] Comment on above: Performed By: #### L 500.4050, L100.0100 #### [facility] [address] [place], [address] Urea nitrogen [Mass/Vol] 14 mg/dL Normal 4-19 [facility] Comment on above: Performed By: #### L 500.4050, L100.0100 #### [facility] [address] [place], [address] Eosinophil percentageOrdered By: Sonia Schmidt on 07-27-2024 Eosinophils/100 WBC (Bld) 4.1 % 0-5 [facility] Erythrocyte distribution wid th ratioOrdered By: Sonia Schmidt on 07-27-2024 Erythrocyte distribution width (RBC) [Ratio] 12.5 % 11.6-14.6 [facility] Erythrocyte distribution wid th standard deviationOrdered By: Sonia Schmidt on 07-27-2024 Erythrocyte distribution width (RBC) [Entitic vol] 42.9 fL 35.1-43.9 [facility] GFR/1.73 sq M.predicted nuno g non-blacks MDRD (S/P/Bld) [Vol rate/Area]Ordered By: Sonia Schmidt on 07-27-2024 Estimated GFR (MDRD) Non-Af Amer 93 >60 [facility] Comment on above: mL/min/1.73m2 CKD-EP I Creatinine Equation (2020) Hematocrit Auto (Bld) [Volum e fraction]Ordered By: Sonia Schmidt on 07-27-2024 Hematocrit (Bld) [Volume fraction] 36.7 % Low 37-47 [facility] Hemoglobin measurementOrdere d By: Sonia Schmidt on 07-27-2024 Hemoglobin (Bld) [Mass/Vol] 12.4 g/dL 12.0-15.0 [facility] Immature granulocytes/100 WB C Auto (Bld)Ordered By: Sonia Schmidt on 07-27-2024 Immature granulocytes/100 WBC (Bld) 0.500 % 0.0-0.9 [facility] Comment on above: IG% - Immature Granu locytes (promyelocytes, myelocytes and metamyelocytes) > 1% indicates that a LEFT SHIFT is Present. Laboratory - Chemistry and C hemistry - challengeOrdered By: Sonia Schmidt on 07-27-2024 AST [Catalytic activity/Vol] 36 U/L High <32 [facility] Lymphocytes Auto (Unsp spec) [#/Vol]Ordered By: Sonia Schmidt on 07-27-2024 Lymphocytes (Bld) [#/Vol] 1.32 10*3/uL 0.83-4.51 [facility] Lymphocytes/100 WBC Auto (Un sp spec)Ordered By: Sonia Schmidt on 07-27-2024 Lymphocytes/100 WBC (Bld) 20.8 % 19-41 [facility] MCV (mean corpuscular volume ) determinationOrdered By: Sonia Schmidt on 07-27-2024 MCV (RBC) [Entitic vol] 93.1 fL 81-99 [facility] Mean corpuscular hemoglobin (MCH) determinationOrdered By: Sonia Schmidt on 07-27-2024 MCH (RBC) [Entitic mass] 31.5 pg 27.0-32.0 [facility] Mean corpuscular hemoglobin concentration (MCHC) determinationOrdered By: Sonia Schmidt on 07-27-2024 MCHC (RBC) [Mass/Vol] 33.8 g/dL 32-36 [facility] Mean platelet volume determi nationOrdered By: Sonia Schmidt on 07-27-2024 Platelet mean volume (Bld) [Entitic vol] 9.7 fL 6.2-12.0 [facility] Monocyte percentageOrdered B y: Sonia Schmidt on 07-27-2024 Monocytes/100 WBC (Bld) 8.8 % 0-10 [facility] Neutrophil percentageOrdered By: Sonia Schmidt on 07-27-2024 Neutrophils/100 WBC (Bld) 64.9 % 47-70 [facility] Nucleated red blood cell per centageOrdered By: Sonia Schmidt on 07-27-2024 Nucleated RBC/100 WBC (Bld) [Ratio] 0 % 0-5 [facility] Platelet countOrdered By: Demarcus Schmidt on 07-27-2024 Platelets (Bld) [#/Vol] 284 10*3/uL 150-450 [facility] Potassium (Unsp spec) [Mass/ Vol]Ordered By: Sonia Schmidt on 07-27-2024 Potassium [Moles/Vol] 4.0 mmol/L 3.3-5.1 [facility] RBC Auto (Bld) [#/Vol]Ordere d By: Sonia Schmidt on 07-27-2024 RBC (Bld) [#/Vol] 3.94 10*6/uL Low 4.2-5.4 [facility] Serum creatinine measurement (mass/volume)Ordered By: Sonia Schmidt on 07-27-2024 Creatinine [Mass/Vol] 0.73 mg/dL 0.70-1.20 [facility] Serum globulin measurementOr dered By: Sonia Schmidt on 07-27-2024 Globulin (S) [Mass/Vol] 2.3 g/dL 2.2-4.2 [facility] Serum glucose measurement (m ass/volume)Ordered By: Sonia Schmidt on 07-27-2024 Glucose [Mass/Vol] 78 mg/dL 70-99 [facility] Serum or plasma alanine bone otransferase (ALT) measurementOrdered By: Sonia Schmidt on 07-27-2024 ALT [Catalytic activity/Vol] 26 U/L <35 [facility] Serum or plasma albumin jac urement (mass/volume)Ordered By: Sonia Schmidt on 07-27-2024 Albumin [Mass/Vol] 3.6 g/dL 3.4-4.8 [facility] Serum or plasma albumin/glob ulin mass ratioOrdered By: Sonia Schmidt on 07-27-2024 Albumin/Globulin [Mass ratio] 1.5 {ratio} 0.9-2.4 [facility] Serum or plasma alkaline john sphatase measurementOrdered By: Sonia Schmidt on 07-27-2024 ALP [Catalytic activity/Vol] 100 U/L 35-104 [facility] Serum or plasma calcium jac urement (mass/volume)Ordered By: Sonia Schmidt on 07-27-2024 Calcium [Mass/Vol] 9.0 mg/dL 7.6-11.0 [facility] Serum or plasma urea nitroge n measurement (mass/volume)Ordered By: Sonia Schmidt on 07-27-2024 Urea nitrogen [Mass/Vol] 14 mg/dL 4-19 [facility] Sodium levelOrdered By: Ada Schmidt on 07-27-2024 Sodium [Moles/Vol] 141 mmol/L 133-145 [facility] Total proteinOrdered By: Markie Schmidt on 07-27-2024 Protein [Mass/Vol] 6.0 g/dL 5.9-8.4 [facility] White blood cell (WBC) count Ordered By: Sonia Schmidt on 07-27-2024 WBC (Bld) [#/Vol] 6.3 10*3/uL 4.4-11.0 [facility] Oncology Visit Reporton 06-16 Oncology Visit Report [facility] [address] [place] [address] OFFICE VISIT Date of Service: 06/28/24 0858 MR#: [id number] Acct: [id number] Name: SERAFIN PRUETT Rep #: [id number] : 1960 From: Brock Martinez MD Age/Sex: 64/F [place] [facility] [place]: Signed HPI Subjective Date of Service 06/28/24 Chief Complaint History of recurrent DVTs. History of Present Illness 64-year-old female who provides history of: 1. Lower extremity distal DVT (does not remember which leg) around 01/2000 while being with her fourth child and following a long flight to [place]. She was treated with systemic anticoagulation throughout the rest of her no bleeding complications. 2. Lower extremity distal DVT (again does not remember which leg) approximately 5 years later following the first event after an accidental fall on ice and injuring her leg, treated with approximately 3 months anticoagulation. There are no records for the above 2 events. 3. August 2023 left lower extremity distal DVT following a long drive from [place]. Treated with systemic anticoagulation, does not recall for how long no bleeding complications. Also noted from patient's records that in 2020, 2021 and 2022 she was evaluated in the emergency room for chest pain, CTA was obtained and no evidence of pulmonary embolism was found in any of these. She used control pills prior her first , she is G4, P4. No family history of hypercoagulability her father was on blood thinners but she does not recall what was the indication. 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 Osteoarthritis Rheumatoid arthritis Essential hypertension History of 2019 novel coronavirus disease (COVID-19) (08/2019) Atherosclerotic heart disease of [place] coronary artery without angina pectoris Hyperlipidemia Abnormal stress test Chest pain, precordial Head mass Arthritis History of DVT (deep vein thrombosis) Surgical History History of ankle surgery History of colonoscopy S/p bilateral blepharoplasty History of left heart catheterization (03/22/14) History of local excision of skin lesion History of endometrial ablation Family History (Updated 06/28/24 @ 09:03 by Susan Anderson) Brother Congenital heart disease Heart disease Father Hypertension Cancer prostate Mother Pulmonary fibrosis Colon cancer Cancer lung cancer Social History Smoking Status: Never smoker alcohol intake: current alcohol intake frequency: holidays/special occasions only Alcohol type: wine details: occasional substance use type: does not use caffeine: No ROS ROS Narrative She has residual bilateral lower extremities DVTs and some swelling at the end of the day. Otherwise systems review was negative Constitutional Constitutional: Reports systems reviewed and no addt'l complaints, except as documented Cardiovascular Cardiovascular: Reports systems reviewed and no addt'l complaints, except as documented, edema and other Details: Varicose veins lower extremity Respiratory/Chest Respiratory/Chest: Reports systems reviewed and no addt'l complaints, except as documented Gastrointestinal Gastrointestinal: Reports systems reviewed and no addt'l complaints, except as documented Genitourinary Genitourinary: Reports systems reviewed and no addt'l complaints, except as documented Musculoskeletal Musculoskeletal: Reports systems reviewed and no addt'l complaints, except as documented Integumentary Integumentary: Reports systems reviewed and no addt'l complaints, except as documented Neurologic Neurologic: Reports systems reviewed and no addt'l complaints, except as documented Psychiatric Psychiatric: Reports systems reviewed and no addt'l complaints, except as documented Endocrine Endocrinology: Reports systems reviewed and no addt'l complaints, except as documented Hematologic/Lymphatic Hematologic/Lymphatic: Denies anemia, easy bleeding or easy bruising Allergic/Immunologic Allergic/Immunologic: Reports systems reviewed and no addt'l complaints, except as documented Intake Vital Signs 03/08/24 09:09 06/28/24 08:59 06/28/24 09:05 Height 5 ft 5 in 5 ft 5 in 5 ft 5 in Weight: 95.424 kg BMI 34.9 BP 121/80 H Blood Pressure Location Lt brachial Position Sitting Respiration 16 Pulse 79 Pulse Source Monitor Temp 97.4 F L Temperature Source Temporal Artery Pulse Oximetry (%) 98 Oxygen Delivery Method room air Intake Is patient in pain?: No Allergies No Known Allergies Allergy (Verified 06/28/24 09:00) Medications ???Medication ???Instructions ? (more content not included)... Normal [facility] US Pelvison 05-31-2024 Indication pelvic pain Impression The uterus is axial and measures 56 mm x 59 mm x 69 mm. The endometrial thickness is 2.3 mm. 1. GRICEL/Cervical subserous fibroid measures 29 mm x 30 mm x 26 mm. 2. GRICEL/ Cervical subserous fibroid measures 37 mm x 39 mm x 33 mm. The right ovary measures 21 mm x 15 mm x 16 mm. The left ovary is not visualized. There is no free fluid visualized. Recommendations Fibroid uterus. Clinical correlation is recommended. 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 View: Suboptimal view: restricted by increased bowel gas. Suboptimal view: fibroids prevented a clear view of the adnexa Uterus Uterus: Visualized Uterus position: axial Description of uterine malformations: none Myometrium: normal Endometrium: normal Cervix details: normal Uterus length 56 mm Uterus width 69 mm Uterus height 59 mm Uterus Vol 121.2 cm Endometrial thickness, total 2.3 mm Fibroids: Fibroids identified Uterine fibroid D1 29 mm Uterine fibroid D2 30 mm Uterine fibroid D3 26 mm Uterine fibroid mean 28.2 mm Uterine fibroid vol 11.655 cm Uterine fibroids findings: GRICEL/Cervical. Subserous Uterine fibroid D1 37 mm Uterine fibroid D2 39 mm Uterine fibroid D3 33 mm Uterine fibroid mean 36.5 mm Uterine fibroid vol 25.273 cm Uterine fibroids findings: GRICEL/ Cervical. Subserous Polyps: No polyps identified Right Ovary Rt ovary: Suboptimal Rt ovary morphology: postmenopausal atrophic Rt ovary D1 21 mm Rt ovary D2 15 mm Rt ovary D3 16 mm Rt ovary Vol 2.6 cm Rt ovarian cyst(s): No cysts identified Left Ovary Lt ovary: Not visualized Cul de Sac Visualized. no free fluid visualized Performed By: Apple Hernandez RDMS Read By: Laurel Barker M.D. MATERNAL MEDICINE [facility] Radiology Study observation (narrative) [facility] Bacteria Ur Culton Bacteria identified Cx Nom (U) ORGANISM ID: 1 10,000 -<50,000 CFU/ml Normal urogenital ananda Normal [facility] Comment on above: Performed By: #### 6 30-4 #### [facility] CLIA [id number] [address] [place] [address] [place] CNOVon 05-28-2024 CNOV Office Visit (OBGYWM ) SERAFIN PRUETT ([id number]) 1960 F Date Time Provider Department 05/28/24 3:20 PM FRANCI METCALF OBGYWM During your visit today, we recorded the following information about you: Blood pressure Weight Height 122/70 93.4 kg 1.645 m Franci Metcalf MD 05/28/2024 4:02 PM Signed Serafin is a 64 year old who presents for an annual gynecologic exam with complaints, right flank pain last 3 days, has had in the past. No dysuria or gross hematuria. . No fever, no h/o kidney stones. Took ibuprofen once this weekend. better w/ certain movements. Doesn't feel like sore muscle, had sore back recently and not the same. no vaginal bleeding Some NIKHIL, not enough to wear pads/liners Postmenopausal: yes HRT use: No. Still get period: No Menopause symptoms: None Time with current partner: 37 years Number of lifetime partners: 1 control frequency: Never HPV vaccine: Unsure; Last pap smear: up to date History of abnormal pap: No, all prior PAP smears have been normal Bothersome pelvic pain: Yes OB History T4 L4 SAB0 IAB0 Ectopic0 Multiple0 Live Births0 Comment: 4 vaginal deliveries Senior Risk Manager History LMP: 09/14/2006, Ablation Age at Menarche: 14 Age at First : Age at Menopause: Senior Risk Manager History Comments: Sexual Activity: Yes; Male; husbands [...] Colon Cancer Father other (triple bypass) Father CA x 2 other (near kidney/liver failure) Father Emphysema Brother Cancer Maternal Grandmother Breast Cancer Colon Cancer Maternal Grandmother Stroke Paternal Grandmother Heart Paternal Grandfather Cancer Maternal Aunt Abdominal Cancer ??etiology SOCIAL HISTORY Social History Tobacco Use Smoking status: Never Smokeless tobacco: Never Vaping Use Vaping status: Never Used Substance Use Topics Alcohol use: Yes Comment: ocas glass of wine Drug use: No REVIEW OF SYSTEMS Abdomen: No abdominal pain, nausea, vomiting, diarrhea, or constipation. No bloating, early satiety, indigestion, or increased flatulence. Bladder: No dysuria, gross hematuria, urinary frequency, urinary urgency, or incontinence Breast: No breast lumps, nipple d/c, overlying skin changes, redness or skin retraction Allergies and current medication updated:Yes SENSITIVE EXAM: The sensitive examination was discussed with the Patient or Patient's Authorized Rotary Helper. As applicable, any other physician, advance practice provider, medical student, or other health professional student that will be observing or involved in the sensitive examination for educational or training purposes was discussed with the Patient or Authorized Rotary Helper. The Patient or Authorized Rotary Helper has agreed to proceed with the sensitive examination. (Sensitive examination includes inspection and/or palpation of the breasts, pelvis, prostate and anorectal regions). EXAM: BP 122/70 Ht 5' 4.75 (1.65m) Wt 206 lb (93.4kg) LMP 09/14/2006 BMI 34.53 kg/(m2). GENERAL: pleasant, female in no apparent [...] external genitalia normal, normal Bartholin's glands, urethra, [place]'s glands, no vulvar lesions, no cervical lesions, physiologic discharge present, normal appearing perineal body and perianal regio (more content not included)... Normal [facility] HIGH RISK HUMAN PAPILLOMA ARSLAN (HPV), PCR FOR DETECTION AND GENOTYPINGon 05-28-2024 HPV 16 Ag Ql (Unsp spec) Not detected Normal Not detected [facility] Comment on above: Order Comment: Speci men Type: FLUID SPECIMEN Ordering Facility: [facility] Address: [address] [place] [address] Performed By: #### H PVHRT #### [facility] CLIA [id number] [address] [place] [address] [place] HPV 18 Ag Ql (Unsp spec) Not detected Normal Not detected [facility] Comment on above: Order Comment: Speci men Type: FLUID SPECIMEN Ordering Facility: [facility] Address: [address] [place] [address] Performed By: #### H PVHRT #### [facility] CLIA [id number] [address] [place] [address] [place] HPV 31+33+35+39+45+51+52+56 +58+59+66+68 DNA SAMANTHA+probe Ql (Cvx) Not detected Normal Not detected [facility] Comment on above: Order Comment: Speci men Type: FLUID SPECIMEN Ordering Facility: [facility] Address: [address] [place] [address] Result Comment: High Risk HPV Other Type includes HPV types 31, 33, 35, 39, 45, 51, 52, 56, 58, 59, 66 and 68. Performed By: #### H PVHRT #### [facility] CLIA [id number] [address] [place] [address] [place] ROSIE SCREENING W TOMOon 05-28 ROSIE SCREENING W NICOLLE * * *Final Report* * * DATE OF EXAM: May 28 2024 3:07PM [id number] [id number] - ROSIE SCREENING W NICOLLE / PROCEDURE REASON: Encounter for screening mammogram for malignant neoplasm of breast * * * * Physician Interpretation * * * * RESULT: [facility] [address] [id number] #[id number] - [facility] SCREENING W NICOLLE HISTORY: Patient is 64 years old and is seen for screening and is asymptomatic in both breasts. Patient states no personal history of breast cancer. Patient states no personal history of other cancers. COMPARISON STUDIES: The present examination has been compared to prior imaging studies dated 02/29/2020 (mammogram), 03/30/2021 (mammogram), 05/20/2021 (ultrasound), 05/20/2021 (mammogram), 04/01/2022 (mammogram) and 04/13/2023 (mammogram). MAMMOGRAM TECHNIQUE: The study was acquired using full field digital technology and interpreted from soft copy. Digital Breast Tomosynthesis (DBT) images were obtained and used to assist in the interpretation of this examination. Computer-aided detection was utilized by the radiologist in the interpretation of this examination. MAMMOGRAM FINDINGS: There are scattered areas of fibroglandular density. No suspicious masses, calcifications or other abnormalities are seen in either breast. There are no significant interval changes. IMPRESSION: There is no mammographic evidence of malignancy in either breast. Routine screening mammogram is recommended. Annual mammogram will be due in 1 year. BI-RADS Category 1: Negative RISK: Based on the Tyrer-Cuzick (TC) risk assessment model, this patient has a 7.9% lifetime risk of developing breast cancer, meaning they are at average risk for developing breast cancer. However, this is only an estimate based on available history provided on the patient's questionnaire. We encourage all patients to talk with their providers about these results, further recommendations for managing breast health, and appropriate supplemental screening options if the patient has dense breast tissue. Interpreting Radiologist: Sharona Gonzalez M.D. FACR, FS Electronically signed on: 05/29/2024 Miner Pick: KARAN Transcribe Date/Time: May 28 2024 2:56P Dictated by: SHARONA GNOZALEZ MD This examination was interpreted and the report reviewed and electronically signed by: SHARONA GONZALEZ MD on May 29 2024 8:00AM EST [id number] Normal [facility] PAP TESTon 05-28-2024 ADEQUACY Satisfactory for interpretation. Normal [facility] Comment on above: Order Comment: Speci men Type: FLUID SPECIMEN Ordering Facility: [facility] Address: [address] [place] [address] Performed By: #### L [id number] #### [facility] CLIA [id number] [address] [place] [address] [place] CASE REPORT Normal [facility] Comment on above: Order Comment: Speci men Type: FLUID SPECIMEN Ordering Facility: [facility] Address: [address] [place] [address] Result Comment: Gyne cologic Cytology Report Case: [id number] Authorizing Provider: Franci Metcalf MD Collected: 05/28/2024 04:14 PM Ordering Location: OB/Gynecology Received: 05/29/2024 11:56 AM First Screen: Uziel, Deb, CT, ASCP Specimen: Pap Test, ThinPrep, Cervix Performed By: #### L [id number] #### [facility] CLIA [id number] [address] [place] [address] [place] CLINICAL HISTORY, CYTOLOGY, WAXED BAG MACHINE OPERATOR Routine Exam Normal [facility] Comment on above: Order Comment: Speci men Type: FLUID SPECIMEN Ordering Facility: [facility] Address: [address] [place] [address] Result Comment: Post Menopausal Performed By: #### L [id number] #### [facility] CLIA [id number] [address] [place] [address] [place] FINAL PERFORMING LAB Normal [facility] Comment on above: Order Comment: Speci men Type: FLUID SPECIMEN Ordering Facility: [facility] Address: [address] [place] [address] Result Comment: Tech nical component, terrazzo tile setter screening performed at [facility], [address] [place] [address] CLIA# [id number] Diagnostic interpretation performed at [facility], [address] [place], [place] [address] CLIA# [id number] Evaluation Assistant: Mauro Street M.D. Performed By: #### L [id number] #### [facility] CLIA [id number] [address] [place] [address] [place] INTERPRETATION, CYTOLOGY, WAXED BAG MACHINE OPERATOR Normal [facility] Comment on above: Order Comment: Speci men Type: FLUID SPECIMEN Ordering Facility: [facility] Address: [address] [place] [address] Result Comment: Nega tive for intraepithelial lesion or malignancy. Performed By: #### L [id number] #### [facility] CLIA [id number] [address] [place] [address] [place] PAP DISCLAIMER COMMENT The Pap Smear is a screening test for cervical cancer. False negative results occur with all screening tests, emphasizing the need for rescreening at recommended intervals, and clinical correlation. Normal [facility] Comment on above: Order Comment: Speci men Type: FLUID SPECIMEN Ordering Facility: [facility] Address: [address] [place] [address] Performed By: #### L [id number] #### [facility] CLIA [id number] [address] [place] [address] [place] PAP NURSING INFORMATION SYSTEMS COORDINATOR COMMENT This specimen has be en analyzed by the ThinPrep Imaging System, an automated imaging and review system, which assists the laboratory in evaluating cells on ThinPrep Pap tests. Following automated imaging, selected avina from every slide are reviewed by a terrazzo tile setter. Normal [facility] Comment on above: Order Comment: Speci men Type: FLUID SPECIMEN Ordering Facility: [facility] Address: [address] [place] [address] Performed By: #### L [id number] #### [facility] CLIA [id number] [address] [place] [address] [place] UA DIP, URINE (POC)on 2024 BILIRUBIN UA (POCT) Negative Negative [facility] CLARITY UA (POCT) Clear [facility] COLOR UA (POCT) Yellow [facility] GLUCOSE UA (POCT) Negative Negative mg/dL [facility] Hemoglobin Ql (U) Large Abnormal Negative [facility] Interpretation and review of laboratory results Abnormal [facility] KETONE UA (POCT) Negative Negative mg/dL [facility] LEUKOCYTES UA (POCT) Negative Negative [facility] NITRITE UA (POCT) Negative Negative [facility] PH UA (POCT) 5.5 4.5 - 8.0 [facility] Protein Ql (U) 100 mg/dL Abnormal Negative [facility] SPECIFIC GRAVITY UA (POCT) >=1.030 1.005 - 1.030 [facility] UROBILINOGEN UA (POCT) 0.2 Uma l E.U./dL [facility] Location:[facility], [address] [facility], [place], [place], [id number] [place] [address] POINT OF CARE [facility] Absolute neutrophil countOrd ered By: Sonia Schmidt on 05-25-2024 Neutrophils (Bld) [#/Vol] 3.5 10*3/uL 2.0-7.7 [facility] Albumin to globulin ratioOrd ered By: Sonia Schmidt on 05-25-2024 Albumin/Globulin [Mass ratio] 1.0 {ratio} 0.9-2.4 [facility] Basophil percentageOrdered B y: Sonia Schmidt on 05-25-2024 Basophils/100 WBC (Bld) 0.9 % 0-1 [facility] Bilirubin, totalOrdered By: Sonia Schmidt on 05-25-2024 Bilirubin [Mass/Vol] 0.40 mg/dL 0.20-1.00 [facility] Comment on above: For patients on eltr ombopag therapy, use of Dimension [place] TBIL is not recommended. Blood urea nitrogen (BUN)/cr eatinine ratioOrdered By: Sonia Schmidt on 05-25-2024 Urea nitrogen/Creatinine [Mass ratio] 24.6 mg/mg High 10- [facility] CBC W/Diff, Automatedon 05-16 Absolute Lymph 1.24 X10 3/uL Normal 0.83-4.51 [facility] Comment on above: Performed By: #### L 100.0100, L500.4050 #### [facility] [address] [place], [address] Absolute Neut 3.5 X10 3/uL Normal 2.0-7.7 [facility] Comment on above: Performed By: #### L 100.0100, L500.4050 #### [facility] [address] [place], [address] Basophils/100 WBC (Bld) 0.9 % Normal 0-1 [facility] Comment on above: Performed By: #### L 100.0100, [id number] #### [facility] [address] [place], [address] Eosinophils/100 WBC (Bld) 5.5 % High 0-5 [facility] Comment on above: Performed By: #### L 100.0100, L500.4050 #### [facility] [address] [place], [address] Erythrocyte distribution width (RBC) [Ratio] 12.5 % Normal 11.6-14.6 [facility] Comment on above: Performed By: #### L 100.0100, L500.4050 #### [facility] [address] [place], [address] Hematocrit (Bld) [Volume fraction] 39.9 % Normal 37-47 [facility] Comment on above: Performed By: #### L 100.0100, L500.4050 #### [facility] [address] [place], [address] Hemoglobin (Bld) [Mass/Vol] 13.1 g/dL Normal 12.0-15.0 [facility] Comment on above: Performed By: #### L 100.0100, L500.4050 #### [facility] [address] [place], [address] IG% 0.400 Normal 0.0-0.9 [facility] Comment on above: Result Comment: IG% - Immature Granulocytes (promyelocytes, myelocytes and metamyelocytes) > 1% indicates that a LEFT SHIFT is Present. Performed By: #### L 100.0100, L500.4050 #### [facility] [address] [place], [address] Lymphocytes/100 WBC (Bld) 22.2 % Normal 19-41 [facility] Comment on above: Performed By: #### L 100.0100, L500.4050 #### [facility] [address] [place], [address] MCH (RBC) [Entitic mass] 30.8 pg Normal 27.0-32.0 [facility] Comment on above: Performed By: #### L 100.0100, L500.4050 #### [facility] [address] [place], [address] MCHC (RBC) [Mass/Vol] 32.8 g/dL Normal 32-36 [facility] Comment on above: Performed By: #### L 100.0100, L500.4050 #### [facility] [address] [place], [address] MCV (RBC) [Entitic vol] 93.7 fL Normal 81-99 [facility] Comment on above: Performed By: #### L 100.0100, L500.4050 #### [facility] [address] [place], [address] Monocytes/100 WBC (Bld) 7.7 % Normal 0-10 [facility] Comment on above: Performed By: #### L 100.0100, L500.4050 #### [facility] [address] [place], [address] Neutrophils/100 WBC (Bld) 63.3 % Normal 47-70 [facility] Comment on above: Performed By: #### L 100.0100, L500.4050 #### [facility] [address] [place], [address] Nucleated RBC (Bld) [#/Vol] 0 10*3/uL Normal 0-5 [facility] Comment on above: Performed By: #### L 100.0100, L500.4050 #### [facility] [address] [place], [address] Platelet mean volume (Bld) [Entitic vol] 9.7 fL Normal 6.2-12.0 [facility] Comment on above: Performed By: #### L 100.0100, L500.4050 #### [facility] [address] [place], [address] Platelets (Bld) [#/Vol] 279 10*3/uL Normal 150-450 [facility] Comment on above: Performed By: #### L 100.0100, L500.4050 #### [facility] [address] [place], [address] RBC (Bld) [#/Vol] 4.26 10*6/uL Normal 4.2-5.4 [facility] Comment on above: Performed By: #### L 100.0100, L500.4050 #### [facility] [address] [place], [address] RDW SD 42.4 fl Normal 35.1-43.9 [facility] Comment on above: Performed By: #### L 100.0100, L500.4050 #### [facility] [address] [place], [address] WBC (Bld) [#/Vol] 5.6 10*3/uL Normal 4.4-11.0 [facility] Comment on above: Performed By: #### L 100.0100, L500.4050 #### [facility] [address] [place], [address] Carbon dioxide measurementOr dered By: Sonia Schmidt on 05-25-2024 CO2 [Moles/Vol] 30.0 mmol/L 21.0-32.0 [facility] Chloride measurementOrdered By: Sonia Schmidt on 05-25-2024 Chloride [Moles/Vol] 106 mmol/L 98-107 [facility] Comprehensive Metabolic Prof ilon 05-25-2024 Albumin [Mass/Vol] 3.2 g/dL Normal 3.2-5.0 [facility] Comment on above: Performed By: #### L 100.0100, L500.4050 #### [facility] [address] [place], [address] Albumin/Globulin [Mass ratio] 1.0 {ratio} Normal 0.9-2.4 [facility] Comment on above: Performed By: #### L 100.0100, L500.4050 #### [facility] [address] [place], [address] ALK P 109 U/L Normal 45-117 [facility] Comment on above: Performed By: #### L 100.0100, L500.4050 #### [facility] [address] [place], [address] ALT [Catalytic activity/Vol] 41 U/L Normal 13-56 [facility] Comment on above: Performed By: #### L 100.0100, L500.4050 #### [facility] [address] [place], [address] AST [Catalytic activity/Vol] 38 U/L High 15-37 [facility] Comment on above: Performed By: #### L 100.0100, L500.4050 #### [facility] [address] [place], [address] Bilirubin [Mass/Vol] 0.40 mg/dL Normal 0.20-1.00 [facility] Comment on above: Result Comment: For patients on eltrombopag therapy, use of Dimension [place] TBIL is not recommended. Performed By: #### L 100.0100, L500.4050 #### [facility] [address] [place], [address] BUN/CRE 24.6 RATIO High 10-20 [facility] Comment on above: Performed By: #### L 100.0100, L500.4050 #### [facility] [address] [place], [address] CA,Total 9.1 mg/dL Normal 8.5-10.1 [facility] Comment on above: Performed By: #### L 100.0100, L500.4050 #### [facility] [address] [place], [address] Chloride [Moles/Vol] 106 mmol/L Normal 98-107 [facility] Comment on above: Performed By: #### L 100.0100, L500.4050 #### [facility] [address] [place], [address] CO2 [Moles/Vol] 30.0 mmol/L Normal 21.0-32.0 [facility] Comment on above: Performed By: #### L 100.0100, L500.4050 #### [facility] [address] [place], [address] Creatinine [Mass/Vol] 0.69 mg/dL Normal 0.55-1.02 [facility] Comment on above: Result Comment: The validity of the calculated GFR GFRAA in patients over 70 years has not been determined. Clinical correlation is essential. Performed By: #### L 100.0100, L500.4050 #### [facility] [address] [place], [address] EST GFR - AA 110 mL/min Normal >60 [facility] Comment on above: Result Comment: Afri can [place] GFR Calc Performed By: #### L 100.0100, L500.4050 #### [facility] [address] [place], [address] GAP 4 Low 5-15 [facility] Comment on above: Performed By: #### L 100.0100, L500.4050 #### [facility] [address] [place], [address] GFR/1.73 sq M.predicted among non-blacks MDRD (S/P/Bld) [Vol rate/Area] 91 mL/min/{1.73_m2} Normal >60 [facility] Comment on above: Result Comment: Non- GFR Calc Performed By: #### L 100.0100, L500.4050 #### [facility] [address] [place], [address] Globulin (S) [Mass/Vol] 3.2 g/dL Normal 2.2-4.2 [facility] Comment on above: Performed By: #### L 100.0100, L500.4050 #### [facility] [address] [place], [address] Glucose [Mass/Vol] 79 mg/dL Normal 74-106 [facility] Comment on above: Performed By: #### L 100.0100, L500.4050 #### [facility] [address] [place], [address] Potassium [Moles/Vol] 4.0 mmol/L Normal 3.5-5.1 [facility] Comment on above: Performed By: #### L 100.0100, L500.4050 #### [facility] [address] [place], [address] Sodium [Moles/Vol] 140 mmol/L Normal 136-145 [facility] Comment on above: Performed By: #### L 100.0100, L500.4050 #### [facility] [address] [place], [address] T PROT 6.4 g/dL Normal 6.4-8.2 [facility] Comment on above: Performed By: #### L 100.0100, L500.4050 #### [facility] [address] [place], [address] Urea nitrogen [Mass/Vol] 17 mg/dL Normal 7-18 [facility] Comment on above: Performed By: #### L 100.0100, L500.4050 #### [facility] [address] [place], [address] Eosinophil percentageOrdered By: Sonia Schmidt on 05-25-2024 Eosinophils/100 WBC (Bld) 5.5 % High 0-5 [facility] Erythrocyte distribution wid th ratioOrdered By: Sonia Schmidt on 05-25-2024 Erythrocyte distribution width (RBC) [Ratio] 12.5 % 11.6-14.6 [facility] Erythrocyte distribution wid th standard deviationOrdered By: Sonia Schmidt on 05-25-2024 Erythrocyte distribution width (RBC) [Entitic vol] 42.4 fL 35.1-43.9 [facility] Estimated glomerular filtrat ion rate (GFR) AmericanOrdered By: Sonia Schmidt on 05-25-2024 Estimated GFR (MDRD) Amer 110 mL/min >60 [facility] Comment on above: GFR Calc Glomerular filtration rate ( GFR) estimationOrdered By: Sonia Schmidt on 05-25-2024 Estimated GFR (MDRD) Non-Af Amer 91 mL/min >60 [facility] Comment on above: Non- GFR Calc Glucose measurementOrdered B y: Sonia Schmidt on 05-25-2024 Glucose [Mass/Vol] 79 mg/dL 74-106 [facility] Hematocrit Auto (Bld) [Volum e fraction]Ordered By: Sonia Schmidt on 05-25-2024 Hematocrit (Bld) [Volume fraction] 39.9 % 37-47 [facility] Hemoglobin measurementOrdere d By: Sonia Schmidt on 05-25-2024 Hemoglobin (Bld) [Mass/Vol] 13.1 g/dL 12.0-15.0 [facility] Immature granulocytes/100 WB C Auto (Bld)Ordered By: Sonia Schmidt on 05-25-2024 Immature granulocytes/100 WBC (Bld) 0.400 % 0.0-0.9 [facility] Comment on above: IG% - Immature Granu locytes (promyelocytes, myelocytes and metamyelocytes) > 1% indicates that a LEFT SHIFT is Present. Laboratory - Chemistry and C hemistry - challengeOrdered By: Sonia Schmidt on 05-25-2024 AST [Catalytic activity/Vol] 38 U/L High 15-37 [facility] Lymphocytes Auto (Unsp spec) [#/Vol]Ordered By: Sonia Schmidt on 05-25-2024 Lymphocytes (Bld) [#/Vol] 1.24 10*3/uL 0.83-4.51 [facility] Lymphocytes/100 WBC Auto (Un sp spec)Ordered By: Sonia Schmidt on 05-25-2024 Lymphocytes/100 WBC (Bld) 22.2 % 19-41 [facility] MCV (mean corpuscular volume ) determinationOrdered By: Sonia Schmidt on 05-25-2024 MCV (RBC) [Entitic vol] 93.7 fL 81-99 [facility] Mean corpuscular hemoglobin (MCH) determinationOrdered By: Sonia Schmidt on 05-25-2024 MCH (RBC) [Entitic mass] 30.8 pg 27.0-32.0 [facility] Mean corpuscular hemoglobin concentration (MCHC) determinationOrdered By: Sonia Schmidt on 05-25-2024 MCHC (RBC) [Mass/Vol] 32.8 g/dL 32-36 [facility] Mean platelet volume determi nationOrdered By: Sonia Schmidt on 05-25-2024 Platelet mean volume (Bld) [Entitic vol] 9.7 fL 6.2-12.0 [facility] Monocyte percentageOrdered B y: Sonia Schmidt on 05-25-2024 Monocytes/100 WBC (Bld) 7.7 % 0-10 [facility] Neutrophil percentageOrdered By: Sonia Schmidt on 05-25-2024 Neutrophils/100 WBC (Bld) 63.3 % 47-70 [facility] Nucleated red blood cell per centageOrdered By: Sonia Schmidt on 05-25-2024 Nucleated RBC/100 WBC (Bld) [Ratio] 0 % 0-5 [facility] Platelet countOrdered By: Demarcus Schmidt on 05-25-2024 Platelets (Bld) [#/Vol] 279 10*3/uL 150-450 [facility] Potassium measurementOrdered By: Sonia Schmidt on 05-25-2024 Potassium [Moles/Vol] 4.0 mmol/L 3.5-5.1 [facility] RBC Auto (Bld) [#/Vol]Ordere d By: Sonia Schmidt on 05-25-2024 RBC (Bld) [#/Vol] 4.26 10*6/uL 4.2-5.4 [facility] Serum anion gap measurementO rdered By: Sonia Schmidt on 05-25-2024 Anion gap [Moles/Vol] 4 mmol/L Low 5-15 [facility] Serum globulin measurementOr dered By: Sonia Schmidt on 05-25-2024 Globulin (S) [Mass/Vol] 3.2 g/dL 2.2-4.2 [facility] Serum or plasma alanine bone otransferase (ALT) measurementOrdered By: Sonia Schmidt on 05-25-2024 ALT [Catalytic activity/Vol] 41 U/L 13-56 [facility] Serum or plasma albumin jac urement (mass/volume)Ordered By: Sonia Schmidt on 05-25-2024 Albumin [Mass/Vol] 3.2 g/dL 3.2-5.0 [facility] Serum or plasma alkaline john sphatase measurementOrdered By: Sonia Schmidt on 05-25-2024 ALP [Catalytic activity/Vol] 109 U/L 45-117 [facility] Serum or plasma calcium jac urement (mass/volume)Ordered By: Sonia Schmidt on 05-25-2024 Calcium [Mass/Vol] 9.1 mg/dL 8.5-10.1 [facility] Serum or plasma creatinine m easurement (mass/volume)Ordered By: Sonia Schmidt on 05-25-2024 Creatinine [Mass/Vol] 0.69 mg/dL 0.55-1.02 [facility] Comment on above: The validity of the calculated GFR & GFRAA in patients over 70 years has not been determined. Clinical correlation is essential. Serum or plasma urea nitroge n measurement (mass/volume)Ordered By: Sonia Schmidt on 05-25-2024 Urea nitrogen [Mass/Vol] 17 mg/dL 7-18 [facility] Sodium levelOrdered By: Ada Schmidt on 05-25-2024 Sodium [Moles/Vol] 140 mmol/L 136-145 [facility] Total proteinOrdered By: Markie Schmidt on 05-25-2024 Protein [Mass/Vol] 6.4 g/dL 6.4-8.2 [facility] White blood cell (WBC) count Ordered By: Sonia Schmidt on 05-25-2024 WBC (Bld) [#/Vol] 5.6 10*3/uL 4.4-11.0 [facility] CNPNon 04-27-2024 CNPN Telephone (OBGYWM) SERAFIN PRUETT ([id number]) 1960 F Date Time Provider Department 04/27/24 FRANCI METCALF OBGEOFF During your visit today, we recorded the following information about you: Emily Tamayo RN 04/27/2024 4:54 PM Signed Patient needs Mamm with NICOLLE order. Please file and then route to PSS to call patient and assist with scheduling. Emily Tamayo RN Allergies As of Date: 04/27/2024 (No Known Allergies) Date Reviewed: 04/13/2023 Reviewed by: Franci Metcalf MD - Fully Assessed Reason for Visit: Orders [681] Primary Visit Diagnosis:Encounter for screening mammogram for malignant neoplasm of breast [Z12.31] Order(s):ROSIE SCREENING W NICOLLE [[id number]] Order #: [id number] FUTURE Prescriptions as of 05/08/2024 - betamethasone dipropionate (DIPROSONE) 0.05 % cream [...] MG TAB Problem List As Of Date 04/27/2024 Noted Resolved Leiomyoma of uterus, unspecified [D25.9] 06/18/2005 09/22/2012 Irregular menstrual cycle [N92.6] 06/18/2005 09/22/2012 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 Cardiovascular Services [address] [place] [address] MR#: [id number] Acct: [id number] Name: SERAFIN PRUETT Rep #: [id number] : 1960 64 From: Keith Mccray MD Primary Care: Dr. Brett Leon MD Status: REG CLI Referring Dr: Lashawn Dahl NP [employer]AMP SERVICE AGENT-Khadar Sex: F C Stress Test Report Exercise myocardial perfusion stress test. 64-year-old lady with a history of chest pain Stress protocol: Resting EKG demonstrates normal sinus rhythm with a rate of 66 bpm resting blood pressure is 126/82 mmHg. The patient exercised according to the regular [facility] protocol for a total duration of 6 minutes and 30 seconds attaining a maximum heart rate of 164 bpm which was 104% of maximum predicted heart rate; the maximum workload was 8.5 metabolic equivalents. At rest there were no ST or T wave changes noted to suggest ischemia and at peak exercise upsloping ST changes only were noted which did not meet the criteria for ischemia. No clinical angina was noted the test was terminated due to the target heart rate being achieved/fatigue. The peak blood pressure was 192/82 mmHg. Rate- pressure product was 28,800. Myocardial perfusion protocol. 12.0 mCi of technetium 99m sestamibi was injected at rest. The patient exercised according to regular [facility] protocol for total duration of 6-1/2 minutes and at peak exercise 34.5 mCi of technetium 99m sestamibi was injected stress images were obtained stress and rest images were reconstructed in comparing the short axis vertical long and horizontal long axis. Gated images were also obtained. Perfusion SPECT analysis: Review of the stress images demonstrate normal uptake of tracer noted in all areas of the myocardium. The resting images similarly demonstrate normal uptake of tracer noted in all areas of the myocardium. No areas of reversibility are noted to suggest ischemia no previous infarct was noted. Gated SPECT analysis: The gated ejection fraction is 62%. Conclusion: Normal exercise myocardial perfusion stress test at a moderate workload Preserved ejection fraction. 04/03/241343 Date Keith Mccray MD CC: CORBY Dahl; Dr. Brett Leon MD Date Dictated: 04/03/241342 Date Transcribed: 04/03/241342 [place]: [place] Signed [facility] [facility] [place] Normal [facility] Comment on above: Order Comment: PLEAS E CHECK ORDER BEFORE SENDING OUTRUSSEL VIPER [id number] PS/FZRUSSEL VIPER [id number] PS/FZ Result Comment: TEST RESULTS LIMITS Dilute Young[employer] Viper Venom DRVVT Screen Seconds 33.7 sec Reference Range: <= 47.0 DRVVT Confirm Seconds Testing Not Indicated DRVVT Ratio Testing Not Indicated TESTING PERFORMED AT [facility]. ORIGINAL REPORT ON FILE IN LAB CONTAINS ADDITIONAL TEST SITE INFORMATION. Performed By: #### L 501.0900, L3100.7325, L3100.7050, L300.4310, L801.1541, L801.1543 ####[facility] [address] [place], [place], [address] Miscellaneous Lab Procedure 2on 03-17-2024 [facility] [place] 2 COMMENT Normal [facility] Comment on above: Order Comment: SAMMY Olvera CHECK ORDER BEFORE SENDING OUTANTITHROMBIN ACT [id number] PS/FZANTITHROMBIN ACT [id number] PS/FZ Result Comment: Test Current Units Reference Result Interval --- Antithrombin Activity 01 101 % 75-135 Direct Xa inhibitor anticoagulants such as rivaroxaban, apixaban and edoxaban will lead to spuriously elevated antithrombin activity levels possibly masking a deficiency. Disclaimer The Previous Result is listed for the most recent test performed by [facility] in the past 5 years where there is sufficient patient demographic data to match the result to the patient. Results from certain tests are excluded from the Previous Result display. Performing Labs 01: [facility], [address] [place] [id number] Dir: Azael Malave MD For inquiries, the physician may contact Lab: [phone] Performed By: #### L 501.0900, L3100.7325, L3100.7050, L300.4310, L801.1541, L801.1543 ####[facility] [address] [place], [address] Protein C, Functionalon 11- PROTEIN C,FUNC 100 Normal 73-180 [facility] Comment on above: Order Comment: PLEAS E CHECK ORDER BEFORE SENDING OUT Result Comment: Perf ormed at: [address] [id number] Powder Room Attendant: Azael Malave MD, Phone: [phone] Performed By: #### L 501.0900, L3100.7325, L3100.7050, L300.4310, L801.1541, L801.1543 ####[facility] [address] [place], [address] Protein S Antigenon 03-16-20 24 PROTEIN S, FREE 119 Normal 61-136 [facility] Comment on above: Order Comment: PLEAS E CHECK ORDER BEFORE SENDING OUT Performed By: #### L 501.0900, L3100.7325, L3100.7050, L300.4310, L801.1541, L801.1543 ####[facility] [address] [place], [address] PROTEIN S,TOTAL 113 Normal 60-150 [facility] Comment on above: Order Comment: PLEAS E CHECK ORDER BEFORE SENDING OUT Result Comment: This test was developed and its performance characteristics determined by [employer]. It has not been cleared or approved by the Food and Drug Administration. Performed By: #### L 501.0900, L3100.7325, L3100.7050, L300.4310, L801.1541, L801.1543 ####[facility] [address] [place], [address] Lipid Profileon 03-13-2024 Cholesterol [Mass/Vol] 153 mg/dL Normal 200 [facility] Comment on above: Result Comment: <200 mg/dL Desirable 200-240 mg/dL Borderline >240 mg/dL High Risk Performed By: #### L 500.4100, L500.3400 ####[facility] [address] [place], [address] Cholesterol in HDL [Mass/Vol] 85 mg/dL Normal [facility] Comment on above: Result Comment: The drugs N-Acetylcysteine and Metamizole may falsely depress this assay. Reference Range HDL <40 mg/dL Low HDL Cholesterol HDL >or= 60 mg/dL High HDL Cholesterol Performed By: #### L 500.4100, L500.3400 ####[facility] [address] [place], [address] Cholesterol in LDL [Mass/Vol] 55 mg/dL Normal 0-130 [facility] Comment on above: Performed By: #### L 500.4100, L500.3400 ####[facility] [address] [place], [address] Cholesterol in VLDL [Mass/Vol] 13 mg/dL Normal 5-40 [facility] Comment on above: Performed By: #### L 500.4100, L500.3400 ####[facility] [address] [place], [address] Triglyceride [Mass/Vol] 63 mg/dL Normal [facility] Comment on above: Result Comment: The drugs N-Acetylcysteine and Metamizole may falsely depress this assay. Serum Triglycerides Reference Interval Normal <150 mg/dL Borderline high 150 - 199 mg/dL High 200 - 499 mg/dL Very High > or = 500 mg/dL Performed By: #### L 500.4100, L500.3400 ####[facility] [address] [place], [address] Liver Profileon 03-13-2024 Albumin [Mass/Vol] 3.2 g/dL Normal 3.2-5.0 [facility] Comment on above: Performed By: #### L 500.4100, L500.3400 ####[facility] [address] [place], [address] ALK P 97 U/L Normal 45-117 [facility] Comment on above: Performed By: #### L 500.4100, L500.3400 ####[facility] [address] [place], [address] ALT [Catalytic activity/Vol] 27 U/L Normal 13-56 [facility] Comment on above: Performed By: #### L 500.4100, L500.3400 ####[facility] [address] [place], [address] AST [Catalytic activity/Vol] 30 U/L Normal 15-37 [facility] Comment on above: Performed By: #### L 500.4100, L500.3400 ####[facility] [address] [place], [address] Bilirubin [Mass/Vol] 0.60 mg/dL Normal 0.20-1.00 [facility] Comment on above: Result Comment: For patients on eltrombopag therapy, use of Dimension [place] TBIL is not recommended. Performed By: #### L 500.4100, L500.3400 ####[facility] [address] [place], [address] Bilirubin.direct [Mass/Vol] 0.18 mg/dL Normal 0.00-0.30 [facility] Comment on above: Performed By: #### L 500.4100, L500.3400 ####[facility] [address] [place], [address] Globulin (S) [Mass/Vol] 3.2 g/dL Normal 2.2-4.2 [facility] Comment on above: Performed By: #### L 500.4100, L500.3400 ####[facility] [address] [place], [address] T PROT 6.4 g/dL Normal 6.4-8.2 [facility] Comment on above: Performed By: #### L 500.4100, L500.3400 ####[facility] [address] [place], [address] Partial Thromboplast Timeon 03-13-2024 aPTT Coag (Bld) [Time] 27.2 s Normal 24.1-36.2 [facility] Comment on above: Order Comment: PLEKAILASH E CHECK ORDER BEFORE SENDING OUT Performed By: #### L 501.0900, L3100.7325, L3100.7050, L300.4310, L801.1541, L801.1543 ####[facility] [address] [place], [address] Protein+Creatinine Ratio,Uri neon 03-13-2024 PROT:CRE RATIO 667 mg/g CRE High 0-200 [facility] Comment on above: Performed By: #### L 501.0900, L3100.7325, L3100.7050, L300.4310, L801.1541, L801.1543 ####[facility] [address] [place], [address] Protein (U) [Mass/Vol] 32.6 mg/dL High <11.9 [facility] Comment on above: Performed By: #### L 501.0900, L3100.7325, L3100.7050, L300.4310, L801.1541, L801.1543 ####[facility] [address] [place], [address] UR CREAT 48.90 mg/dL Normal NO RANGE EST. [facility] Comment on above: Performed By: #### L 501.0900, L3100.7325, L3100.7050, L300.4310, L801.1541, L801.1543 ####[facility] [address] [place], [address] Cardiology Visit Reporton Cardiology Visit Report [facility] [address] [place] [address] OFFICE VISIT Date of Service: 03/08/24 MR#: [id number] Acct: [id number] Name: SERAFIN PRUETT Rep #: [id number] : 1960 Provider: CORBY durbin Age/Sex: 64/F Location: [facility] [place] Status: Signed HPI HPI History of Present Illness Details: Mrs. No is a very pleasant 64 year-old female who presents to the office today for a cardiovascular visit. She has a history of nonobstructive coronary artery disease, hypertension, hyperlipidemia, diffuse arthritis on Plaquenil, positive family history of congenital heart disease in her brother who apparently had been found to have a hole in his heart, was surgically repaired 3 times, and subsequently suddenly at age 39. She underwent left heart catheterization at [facility] 03/22/14, which demonstrated nonobstructive disease in the range of an eccentric 40% stenosis in the midportion of the LAD which did not appear to be flow-limiting. Her LV function was normal and we elected to treat her with medications including PPIs. At her previous appointment, she states that she had been taking care of her mother in [place], and drove up for her appointment that day. She had complained of painful left lower extremity. She underwent testing and was positive for a DVT. She was started on Eliquis at that time. She states she has a history of DVT's. From a cardiac standpoint, the patient is doing well. She does acknowledge occasional racing sensation. She states that she notices this most when lying in bed. She does acknowledge occasional left sided chest pain.She describes this as a hard pinch, usually at rest. She denies SOB, Orthopnea, and PND. She does not have bleeding issues; no blood in urine, stool or nosebleeds. She denies any decrease in energy level, myalgias, or claudication. She does not have edema, or sudden weight gain. She does have occasional lightheadedness. She denies dizziness, lightheadedness, syncopal or near syncopal episodes, and headaches. She states that she does have random nausea. 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 Required: No Is patient in pain?: No Allergies No Known Allergies Allergy (Verified 03/08/24 09:22) Medications ???Medication ???Instructions ???Recorded ???Confirmed ???Type hydroxychloroquine 200 mg tablet 200 mg PO BIDCM 03/21/14 03/08/24 History aspirin 81 mg tablet,delayed 81 mg PO QDAY 08/17/17 03/08/24 History release calcium 500 mg-vitamin D3 500 1 tab PO QDAY 08/17/17 03/08/24 History unit-vitamin K 40 mcg chewable tablet (Viactiv) folic acid 1 mg tablet 2 mg PO DAILY 01/21/22 03/08/24 History methotrexate sodium 2.5 mg tablet 15 mg PO QWEEK 01/21/22 03/08/24 History multivitamin 1 tab PO DAILY 01/21/22 03/08/24 History fluticasone propionate 50 2 spray intranasal DAILY 05/07/23 03/08/24 History mcg/actuation nasal spray,suspension simvastatin 20 mg tablet 20 mg PO QHS #90 tabs 09/15/23 03/08/24 Rx lisinopril 20 mg tablet 20 mg PO DAILY #90 tabs 03/08/24 03/08/24 Rx Nurse's Note: no medication list, does not know names of medications [facility] Medical History Osteoarthritis Rheumatoid arthritis Essential hypertension History of 2019 novel coronavirus disease (COVID-19) (08/2019) Atherosclerotic heart disease of [place] coronary artery without angina pectoris Hyperlipidemia Abnormal stress test Chest pain, precordial Head mass Arthritis History of DVT (deep vein thrombosis) Surgical History S/p bilateral blepharoplasty History of left heart catheterization (03/22/14) History of local excision of skin lesion History of endometrial ablation Family History Brother Congenital heart disease Father Hypertension Social History Smoking Status: Never smoker alcohol intake: current alcohol intake frequency: holidays/special occasions only Alcohol type: wine details: occasional substance use type: does not use caffeine: No ROS Const Const: Negative for fatigue, weakness, fever(s), headache(s), chills, frequent falls, weight gain or weight loss Eyes Eyes: Negative for blind spots, loss of peripheral vision, transient loss of vision, blurry vision, change in vision, double vision, floa (more content not included)... Normal [facility] CBC W/Diff, Automatedon 02-13 Absolute Lymph 1.18 X10 3/uL Normal 0.83-4.51 [facility] Comment on above: Performed By: #### L 100.0100, L500.4050 ####[facility] [address] [place], [address] Absolute Neut 3.7 X10 3/uL Normal 2.0-7.7 [facility] Comment on above: Performed By: #### L 100.0100, L500.4050 ####[facility] [address] [facility] [place], [address] Basophils/100 WBC (Bld) 0.8 % Normal 0-1 [facility] Comment on above: Performed By: #### L 100.0100, L500.4050 ####[facility] [address] [place] [place], [address] Eosinophils/100 WBC (Bld) 4.8 % Normal 0-5 [facility] Comment on above: Performed By: #### L 100.0100, L500.4050 ####[facility] [address] [place], [address] Erythrocyte distribution width (RBC) [Ratio] 12.3 % Normal 11.6-14.6 [facility] Comment on above: Performed By: #### L 100.0100, L500.4050 ####[facility] [address] [place], [address] Hematocrit (Bld) [Volume fraction] 37.8 % Normal 37-47 [facility] Comment on above: Performed By: #### L 100.0100, L500.4050 ####[facility] [address] [place], [address] Hemoglobin (Bld) [Mass/Vol] 12.6 g/dL Normal 12.0-15.0 [facility] Comment on above: Performed By: #### L 100.0100, L500.4050 ####[facility] [address] [place], [address] IG% 0.500 Normal 0.0-0.9 [facility] Comment on above: Result Comment: IG% - Immature Granulocytes (promyelocytes, myelocytes and metamyelocytes) > 1% indicates that a LEFT SHIFT is Present. Performed By: #### L 100.0100, L500.4050 ####[facility] [address] [place], [address] Lymphocytes/100 WBC (Bld) 19.7 % Normal 19-41 [facility] Comment on above: Performed By: #### L 100.0100, L500.4050 ####[facility] [address] [place] [place], [address] MCH (RBC) [Entitic mass] 30.8 pg Normal 27.0-32.0 [facility] Comment on above: Performed By: #### L 100.0100, L500.4050 ####[facility] [address] [place], [address] MCHC (RBC) [Mass/Vol] 33.3 g/dL Normal 32-36 [facility] Comment on above: Performed By: #### L 100.0100, L500.4050 ####[facility] [address] [place], [address] MCV (RBC) [Entitic vol] 92.4 fL Normal 81-99 [facility] Comment on above: Performed By: #### L 100.0100, L500.4050 ####[facility] [address] [place], [address] Monocytes/100 WBC (Bld) 11.7 % High 0-10 [facility] Comment on above: Performed By: #### L 100.0100, L500.4050 ####[facility] [address] [place], [address] Neutrophils/100 WBC (Bld) 62.5 % Normal 47-70 [facility] Comment on above: Performed By: #### L 100.0100, L500.4050 ####[facility] [address] [place], [address] Nucleated RBC (Bld) [#/Vol] 0.3 10*3/uL Normal 0-5 [facility] Comment on above: Performed By: #### L 100.0100, L500.4050 ####[facility] [address] [place], [address] Platelet mean volume (Bld) [Entitic vol] 9.7 fL Normal 6.2-12.0 [facility] Comment on above: Performed By: #### L 100.0100, L500.4050 ####[facility] [address] [place], [address] Platelets (Bld) [#/Vol] 312 10*3/uL Normal 150-450 [facility] Comment on above: Performed By: #### L 100.0100, L500.4050 ####[facility] [address] [place], [address] RBC (Bld) [#/Vol] 4.09 10*6/uL Low 4.2-5.4 [facility] Comment on above: Performed By: #### L 100.0100, L500.4050 ####[facility] [address] [place], [address] RDW SD 41.3 fl Normal 35.1-43.9 [facility] Comment on above: Performed By: #### L 100.0100, L500.4050 ####[facility] [address] [place], [address] WBC (Bld) [#/Vol] 6.0 10*3/uL Normal 4.4-11.0 [facility] Comment on above: Performed By: #### L 100.0100, L500.4050 ####[facility] [address] [place], [address] Comprehensive Metabolic [facility] 02-24-2024 Albumin [Mass/Vol] 3.2 g/dL Normal 3.2-5.0 [facility] Comment on above: Performed By: #### L 100.0100, L500.4050 ####[facility] [address] [place], [address] Albumin/Globulin [Mass ratio] 1.0 {ratio} Normal 0.9-2.4 [facility] Comment on above: Performed By: #### L 100.0100, L500.4050 ####[facility] [address] [place], [address] ALK P 103 U/L Normal 45-117 [facility] Comment on above: Performed By: #### L 100.0100, L500.4050 ####[facility] [address] [place], [address] ALT [Catalytic activity/Vol] 27 U/L Normal 13-56 [facility] Comment on above: Performed By: #### L 100.0100, L500.4050 ####[facility] [address] [place], [address] AST [Catalytic activity/Vol] 27 U/L Normal 15-37 [facility] Comment on above: Performed By: #### L 100.0100, L500.4050 ####[facility] [address] [place], [address] Bilirubin [Mass/Vol] 0.40 mg/dL Normal 0.20-1.00 [facility] Comment on above: Result Comment: For patients on eltrombopag therapy, use of Dimension [place] TBIL is not recommended. Performed By: #### L 100.0100, L500.4050 ####[facility] [address] [place], [address] BUN/CRE 21.6 RATIO High 10-20 [facility] Comment on above: Performed By: #### L 100.0100, L500.4050 ####[facility] [address] [place], [address] CA,Total 9.7 mg/dL Normal 8.5-10.1 [facility] Comment on above: Performed By: #### L 100.0100, L500.4050 ####[facility] [address] [place], [address] Chloride [Moles/Vol] 106 mmol/L Normal 98-107 [facility] Comment on above: Performed By: #### L 100.0100, L500.4050 ####[facility] [address] [place], [address] CO2 [Moles/Vol] 30.0 mmol/L Normal 21.0-32.0 [facility] Comment on above: Performed By: #### L 100.0100, L500.4050 ####[facility] [address] [place], [address] Creatinine [Mass/Vol] 0.65 mg/dL Normal 0.55-1.02 [facility] Comment on above: Result Comment: The validity of the calculated GFR GFRAA in patients over 70 years has not been determined. Clinical correlation is essential. Performed By: #### L 100.0100, L500.4050 ####[facility] [address] [place], [address] EST GFR - AA 119 mL/min Normal >60 [facility] Comment on above: Result Comment: Afri can Ukrainian GFR Calc Performed By: #### L 100.0100, L500.4050 ####[facility] [address] [place], [address] GAP 4 Low 5-15 [facility] Comment on above: Performed By: #### L 100.0100, L500.4050 ####[facility] [address] [place], [address] GFR/1.73 sq M.predicted among non-blacks MDRD (S/P/Bld) [Vol rate/Area] 98 mL/min/{1.73_m2} Normal >60 [facility] Comment on above: Result Comment: Non- GFR Calc Performed By: #### L 100.0100, L500.4050 ####[facility] [address] [place], [address] Globulin (S) [Mass/Vol] 3.1 g/dL Normal 2.2-4.2 [facility] Comment on above: Performed By: #### L 100.0100, L500.4050 ####[facility] [address] [place], [address] Glucose [Mass/Vol] 98 mg/dL Normal 74-106 [facility] Comment on above: Performed By: #### L 100.0100, L500.4050 ####[facility] [address] [place], [address] Potassium [Moles/Vol] 3.6 mmol/L Normal 3.5-5.1 [facility] Comment on above: Performed By: #### L 100.0100, L500.4050 ####[facility] [address] [place], [address] Sodium [Moles/Vol] 140 mmol/L Normal 136-145 [facility] Comment on above: Performed By: #### L 100.0100, L500.4050 ####[facility] [address] [place], [address] T PROT 6.3 g/dL Low 6.4-8.2 [facility] Comment on above: Performed By: #### L 100.0100, L500.4050 ####[facility] [address] [place], [address] Urea nitrogen [Mass/Vol] 14 mg/dL Normal 7-18 [facility] Comment on above: Performed By: #### L 100.0100, L500.4050 ####[facility] [address] [place], [address] Venous Duplex US, Unilateral on 12-08-2023 Venous Duplex US, Unilateral [facility] [address] [place] [address] Venous Duplex US, Unilateral 12/08/23 1100 MR#: [id number] Acct: [id number] Name: SERAFIN PRUETT Rep #: [id number] : 1960 63 From: Saud Mccall MD Attending Dr: Lashawn Dahl [employer] SERVICE AGENT-C Status: MONCHO Rubalcava Ordering Dr: Lashawn Dahl NP [employer] SERVICE [employer]ENT-C Date: 12/08/23 Location: [facility] Sex: F C Admitted: Reason For Study: LLE DVT RIGHT LEFT CFV is compressible, spontaneous, phasic, GSV is normal. competent and demonstrates normal CFV is compressible, spontaneous, phasic, augmentation. competent, and demonstrates normal Procedure augmentation. This is a venous duplex using B-mode, color FV is compressible, spontaneous, phasic, flow and spectral Doppler. competent and demonstrates normal Exam performed in department. augmentation. The exam was diagnostic. POP V is compressible, spontaneous, phasic, A preliminary report was called and/or faxed competent and demonstrates normal to Lashawn TAVAREZ. augmentation. T/P Trunk is compressible. PTV is compressible. LT PerV is compressible. Soleus V is compressible. Previous DVT from 09/07/23 has resolved. VL/Venous Duplex US, Unilateral Interpretation Summary There is no evidence of left lower extremity deep vein thrombosis. Left great saphenous vein appears patent and compressible segmentally. Resolved left soleus DVT Normal flow patterns right common femoral vein Ordering Physician: Lashawn Dahl Referring Physician: Lashawn Dahl Performed By: Reuben Stoddard, RVT 12/08/23 1750 Date Saud Mccall MD CC: KAELYN-C Lashawn Dahl; Dr. Brett Leon MD Date Dictated: 12/08/23 1100 Date Transcribed: 12/08/231749 Miner Pick: Signed Normal [facility] CBC W/Diff, Automatedon 07- Absolute Lymph 1.25 X10 3/uL Normal 0.83-4.51 [facility] Comment on above: Performed By: #### L 100.0100, L500.4050 ####[facility] [address] [place], [address] Absolute Neut 2.9 X10 3/uL Normal 2.0-7.7 [facility] Comment on above: Performed By: #### L 100.0100, L500.4050 ####[facility] [address] [place], [address] Basophils/100 WBC (Bld) 1.0 % Normal 0-1 [facility] Comment on above: Performed By: #### L 100.0100, L500.4050 ####[facility] [address] [place], [address] Eosinophils/100 WBC (Bld) 4.7 % Normal 0-5 [facility] Comment on above: Performed By: #### L 100.0100, L500.4050 ####[facility] [address] [place], [address] Erythrocyte distribution width (RBC) [Ratio] 12.2 % Normal 11.6-14.6 [facility] Comment on above: Performed By: #### L 100.0100, L500.4050 ####[facility] [address] [place], [address] Hematocrit (Bld) [Volume fraction] 38.3 % Normal 37-47 [facility] Comment on above: Performed By: #### L 100.0100, L500.4050 ####[facility] [address] [place], [address] Hemoglobin (Bld) [Mass/Vol] 13.0 g/dL Normal 12.0-15.0 [facility] Comment on above: Performed By: #### L 100.0100, L500.4050 ####[facility] [address] [place], [address] IG% 0.400 Normal 0.0-0.9 [facility] Comment on above: Result Comment: IG% - Immature Granulocytes (promyelocytes, myelocytes and metamyelocytes) > 1% indicates that a LEFT SHIFT is Present. Performed By: #### L 100.0100, L500.4050 ####[facility] [address] [place], [address] Lymphocytes/100 WBC (Bld) 25.6 % Normal 19-41 [facility] Comment on above: Performed By: #### L 100.0100, L500.4050 ####[facility] [address] [place], [address] MCH (RBC) [Entitic mass] 31.6 pg Normal 27.0-32.0 [facility] Comment on above: Performed By: #### L 100.0100, L500.4050 ####[facility] [address] [place], [address] MCHC (RBC) [Mass/Vol] 33.9 g/dL Normal 32-36 [facility] Comment on above: Performed By: #### L 100.0100, L500.4050 ####[facility] [address] [place], [address] MCV (RBC) [Entitic vol] 93.2 fL Normal 81-99 [facility] Comment on above: Performed By: #### L 100.0100, L500.4050 ####[facility] [address] [place], [address] Monocytes/100 WBC (Bld) 8.0 % Normal 0-10 [facility] Comment on above: Performed By: #### L 100.0100, L500.4050 ####[facility] [address] [place], [address] Neutrophils/100 WBC (Bld) 60.3 % Normal 47-70 [facility] Comment on above: Performed By: #### L 100.0100, L500.4050 ####[facility] [address] [place], [address] Nucleated RBC (Bld) [#/Vol] 0 10*3/uL Normal 0-5 [facility] Comment on above: Performed By: #### L 100.0100, L500.4050 ####[facility] [address] [place], [address] Platelet mean volume (Bld) [Entitic vol] 9.9 fL Normal 6.2-12.0 [facility] Comment on above: Performed By: #### L 100.0100, L500.4050 ####[facility] [address] [place], [address] Platelets (Bld) [#/Vol] 299 10*3/uL Normal 150-450 [facility] Comment on above: Performed By: #### L 100.0100, L500.4050 ####[facility] [address] [place], [address] RBC (Bld) [#/Vol] 4.11 10*6/uL Low 4.2-5.4 [facility] Comment on above: Performed By: #### L 100.0100, L500.4050 ####[facility] [address] [place], [address] RDW SD 42.1 fl Normal 35.1-43.9 [facility] Comment on above: Performed By: #### L 100.0100, L500.4050 ####[facility] [address] [place], [address] WBC (Bld) [#/Vol] 4.9 10*3/uL Normal 4.4-11.0 [facility] Comment on above: Performed By: #### L 100.0100, L500.4050 ####[facility] [address] [place], [address] Comprehensive Metabolic Prof ilon 12-06-2023 Albumin [Mass/Vol] 3.1 g/dL Low 3.2-5.0 [facility] Comment on above: Performed By: #### L 100.0100, L500.4050 ####[facility] [address] [place], [address] Albumin/Globulin [Mass ratio] 1.0 {ratio} Normal 0.9-2.4 [facility] Comment on above: Performed By: #### L 100.0100, L500.4050 ####[facility] [address] [place], [address] ALK P 100 U/L Normal 45-117 [facility] Comment on above: Performed By: #### L 100.0100, L500.4050 ####[facility] [address] [place], [address] ALT [Catalytic activity/Vol] 29 U/L Normal 13-56 [facility] Comment on above: Performed By: #### L 100.0100, L500.4050 ####[facility] [address] [place], [address] AST [Catalytic activity/Vol] 31 U/L Normal 15-37 [facility] Comment on above: Performed By: #### L 100.0100, L500.4050 ####[facility] [address] [place], [address] Bilirubin [Mass/Vol] 0.40 mg/dL Normal 0.20-1.00 [facility] Comment on above: Result Comment: For patients on eltrombopag therapy, use of Dimension [place] TBIL is not recommended. Performed By: #### L 100.0100, L500.4050 ####[facility] [address] [place], [address] BUN/CRE 17.8 RATIO Normal 10-20 [facility] Comment on above: Performed By: #### L 100.0100, L500.4050 ####[facility] [address] [place], [address] CA,Total 9.1 mg/dL Normal 8.5-10.1 [facility] Comment on above: Performed By: #### L 100.0100, L500.4050 ####[facility] [address] [place], [address] Chloride [Moles/Vol] 106 mmol/L Normal 98-107 [facility] Comment on above: Performed By: #### L 100.0100, L500.4050 ####[facility] [address] [place], [address] CO2 [Moles/Vol] 29.0 mmol/L Normal 21.0-32.0 [facility] Comment on above: Performed By: #### L 100.0100, L500.4050 ####[facility] [address] [place], [address] Creatinine [Mass/Vol] 0.62 mg/dL Normal 0.55-1.02 [facility] Comment on above: Result Comment: The validity of the calculated GFR GFRAA in patients over 70 years has not been determined. Clinical correlation is essential. Performed By: #### L 100.0100, L500.4050 ####[facility] [address] [place], [address] EST GFR - AA 126 mL/min Normal >60 [facility] Comment on above: Result Comment: Afri can Ukrainian GFR Calc Performed By: #### L 100.0100, L500.4050 ####[facility] [address] [place], [address] GAP 5 Normal 5-15 [facility] Comment on above: Performed By: #### L 100.0100, L500.4050 ####[facility] [address] [place], [address] GFR/1.73 sq M.predicted among non-blacks MDRD (S/P/Bld) [Vol rate/Area] 104 mL/min/{1.73_m2} Normal >60 [facility] Comment on above: Result Comment: Non- GFR Calc Performed By: #### L 100.0100, L500.4050 ####[facility] [address] [place], [address] Globulin (S) [Mass/Vol] 3.2 g/dL Normal 2.2-4.2 [facility] Comment on above: Performed By: #### L 100.0100, L500.4050 ####[facility] [address] [place], [address] Glucose [Mass/Vol] 88 mg/dL Normal 74-106 [facility] Comment on above: Performed By: #### L 100.0100, L500.4050 ####[facility] [address] [place], [address] Potassium [Moles/Vol] 3.9 mmol/L Normal 3.5-5.1 [facility] Comment on above: Performed By: #### L 100.0100, L500.4050 ####[facility] [address] [place], [address] Sodium [Moles/Vol] 140 mmol/L Normal 136-145 [facility] Comment on above: Performed By: #### L 100.0100, L500.4050 ####[facility] [address] [place], [address] T PROT 6.3 g/dL Low 6.4-8.2 [facility] Comment on above: Performed By: #### L 100.0100, L500.4050 ####[facility] [address] [place], [address] Urea nitrogen [Mass/Vol] 11 mg/dL Normal 7-18 [facility] Comment on above: Performed By: #### L 100.0100, L500.4050 ####[facility] [address] [place], [address] Absolute lymphocyte countOrd ered By: Sonia Schmidt on 09-06-2023 Lymphocytes Auto (Unsp spec) [#/Vol] 1.20 10*3/uL 0.83-4.51 [facility] Automated lymphocyte count a s percentage of total leukocytesOrdered By: Sonia Schmidt on 09-06-2023 Lymphocytes/100 WBC Auto (Unsp spec) 23.4 % 19-41 [facility] Basophil percentageOrdered B y: Sonia Schmidt on 09-06-2023 Basophils/100 WBC (Bld) 1.0 % 0-1 [facility] Bilirubin [Mass/Vol] 0.30 mg/dL 0.20-1.00 [facility] Comment on above: For patients on eltr ombopag therapy, use of Dimension [place] TBIL is not recommended. Chloride [Moles/Vol] 106 mmol/L 98-107 [facility] Eosinophils/100 WBC (Bld) 4.9 % 0-5 [facility] Glucose [Mass/Vol] 74 mg/dL 74-106 [facility] Hemoglobin (Bld) [Mass/Vol] 13.2 g/dL 12.0-15.0 [facility] Monocytes/100 WBC (Bld) 9.2 % 0-10 [facility] Neutrophils (Bld) [#/Vol] 3.1 10*3/uL 2.0-7.7 [facility] Neutrophils/100 WBC (Bld) 61.3 % 47-70 [facility] Potassium [Moles/Vol] 3.6 mmol/L 3.5-5.1 [facility] Protein [Mass/Vol] 6.5 g/dL 6.4-8.2 [facility] Sodium [Moles/Vol] 141 mmol/L 136-145 [facility] WBC (Bld) [#/Vol] 5.1 10*3/uL 4.4-11.0 [facility] Determination of erythrocyte mean corpuscular volume (MCV)Ordered By: Sonia Schmidt on 09-06-2023 MCV (RBC) [Entitic vol] 93.4 fL 81-99 [facility] Erythrocyte distribution wid th ratioOrdered By: Sonia Brayan on 09-06-2023 Erythrocyte distribution width (RBC) [Ratio] 12.4 % 11.6-14.6 [facility] Erythrocyte distribution wid th standard deviationOrdered By: Sonia Schmidt on 09-06-2023 Erythrocyte distribution width (RBC) [Entitic vol] 42.3 fL 35.1-43.9 [facility] Hematocrit Auto (Bld) [Volum e fraction]Ordered By: Sonia Brayan on 09-06-2023 Hematocrit (Bld) [Volume fraction] 39.7 % 37-47 [facility] Immature granulocytes/100 WB C Auto (Bld)Ordered By: [facility] Brayan on 09-06-2023 Immature granulocytes/100 WBC (Bld) 0.200 % 0.0-0.9 [facility] Comment on above: IG% - Immature Granu locytes (promyelocytes, myelocytes and metamyelocytes) > 1% indicates that a LEFT SHIFT is Present. Laboratory - Chemistry and C hemistry - challengeOrdered By: Sonia Schmidt on 09-06-2023 Albumin/Globulin [Mass ratio] 0.9 {ratio} 0.9-2.4 [facility] ALP [Catalytic activity/Vol] 105 U/L 45-117 [facility] ALT [Catalytic activity/Vol] 28 U/L 13-56 [facility] CO2 [Moles/Vol] 31.0 mmol/L 21.0-32.0 [facility] Globulin (S) [Mass/Vol] 3.4 g/dL 2.2-4.2 [facility] Urea nitrogen/Creatinine [Mass ratio] 19.8 mg/mg 10-20 [facility] Laboratory - Hematology and Cell countsOrdered By: Sonia Schmidt on 09-06-2023 MCH (RBC) [Entitic mass] 31.1 pg 27.0-32.0 [facility] MCHC (RBC) [Mass/Vol] 33.2 g/dL 32-36 [facility] Nucleated RBC/100 WBC (Bld) [Ratio] 0 % 0-5 [facility] Platelet mean volume (Bld) [Entitic vol] 9.7 fL 6.2-12.0 [facility] Platelets (Bld) [#/Vol] 256 10*3/uL 150-450 [facility] No Panel InformationOrdered By: Sonia Schmidt on 09-06-2023 Estimated GFR (MDRD) Amer 99 mL/min >60 [facility] Comment on above: GFR Calc Estimated GFR (MDRD) Non-Af Amer 82 mL/min >60 [facility] Comment on above: Non- GFR Calc RBC Auto (Bld) [#/Vol]Ordere d By: Sonia Schmidt on 09-06-2023 RBC (Bld) [#/Vol] 4.25 10*6/uL 4.2-5.4 [facility] Serum or plasma calcium jac urement (mass/volume)Ordered By: Sonia Schmidt on 09-06-2023 Calcium [Mass/Vol] 9.1 mg/dL 8.5-10.1 [facility] Serum or plasma creatinine m easurement (mass/volume)Ordered By: Sonia Schmidt on 09-06-2023 Creatinine [Mass/Vol] 0.76 mg/dL 0.55-1.02 [facility] Comment on above: The validity of the calculated GFR & GFRAA in patients over 70 years has not been determined. Clinical correlation is essential. Serum or plasma urea nitroge n measurement (mass/volume)Ordered By: Sonia Schmidt on 09-06-2023 Urea nitrogen [Mass/Vol] 15 mg/dL 7-18 [facility] Thin prep Papanicolaou smear with manual screeningOrdered By: Sonia Schmidt on 09-06-2023 Thin prep Papanicolaou smear with manual screening 3.1 g/dL 3.2-5.0 [facility] Thin prep Papanicolaou smear with manual screening 30 U/L 15-37 [facility] Thin prep Papanicolaou smear with manual screening 4 5-15 [facility] Basophil percentageOrdered B y: Sonia Schmidt on 06-13-2023 Bilirubin [Mass/Vol] 0.40 mg/dL 0.20-1.00 [facility] Comment on above: For patients on eltr ombopag therapy, use of Dimension [place] TBIL is not recommended. Chloride [Moles/Vol] 105 mmol/L 98-107 [facility] Glucose [Mass/Vol] 78 mg/dL 74-106 [facility] Potassium [Moles/Vol] 3.7 mmol/L 3.5-5.1 [facility] Protein [Mass/Vol] 6.4 g/dL 6.4-8.2 [facility] Sodium [Moles/Vol] 138 mmol/L 136-145 [facility] Laboratory - Chemistry and C hemistry - challengeOrdered By: Sonia Schmidt on 06-13-2023 Albumin/Globulin [Mass ratio] 1.1 {ratio} 0.9-2.4 [facility] ALP [Catalytic activity/Vol] 97 U/L 45-117 [facility] ALT [Catalytic activity/Vol] 32 U/L 13-56 [facility] CO2 [Moles/Vol] 29.0 mmol/L 21.0-32.0 [facility] Globulin (S) [Mass/Vol] 3.1 g/dL 2.2-4.2 [facility] Urea nitrogen/Creatinine [Mass ratio] 26.3 mg/mg 10-20 [facility] No Panel InformationOrdered By: Sonia Schmidt on 06-13-2023 Estimated GFR (MDRD) Amer 128 mL/min >60 [facility] Comment on above: GFR Calc Estimated GFR (MDRD) Non-Af Amer 106 mL/min >60 [facility] Comment on above: Non- GFR Calc Serum or plasma calcium jac urement (mass/volume)Ordered By: Sonia Schmidt on 06-13-2023 Calcium [Mass/Vol] 8.9 mg/dL 8.5-10.1 [facility] Serum or plasma creatinine m easurement (mass/volume)Ordered By: Sonia Schmidt on 06-13-2023 Creatinine [Mass/Vol] 0.61 mg/dL 0.55-1.02 [facility] Comment on above: The validity of the calculated GFR & GFRAA in patients over 70 years has not been determined. Clinical correlation is essential. Serum or plasma urea nitroge n measurement (mass/volume)Ordered By: Sonia Schmidt on 06-13-2023 Urea nitrogen [Mass/Vol] 16 mg/dL 7-18 [facility] Thin prep Papanicolaou smear with manual screeningOrdered By: Sonia Schmidt on 06-13-2023 Thin prep Papanicolaou smear with manual screening 3.3 g/dL 3.2-5.0 [facility] Thin prep Papanicolaou smear with manual screening 33 U/L 15-37 [facility] Thin prep Papanicolaou smear with manual screening 4 5-15 [facility] Absolute lymphocyte countOrd ered By: Sonia Schmidt on 05-17-2023 Lymphocytes Auto (Unsp spec) [#/Vol] 1.23 10*3/uL 0.83-4.51 [facility] Basophil percentageOrdered B y: Sonia Schmidt on 05-17-2023 Basophils/100 WBC (Bld) 1.4 % 0-1 [facility] Bilirubin [Mass/Vol] 0.50 mg/dL 0.20-1.00 [facility] Comment on above: For patients on eltr ombopag therapy, use of Dimension [place] TBIL is not recommended. Chloride [Moles/Vol] 105 mmol/L 98-107 [facility] Eosinophils/100 WBC (Bld) 3.5 % 0-5 [facility] Glucose [Mass/Vol] 100 mg/dL 74-106 [facility] Comment on above: Fasting Glucose resu lt from 100 to 125 mg/dL suggests IMPAIRED HOMEOSTASIS per A.D.A. criteria. Neutrophils (Bld) [#/Vol] 2.5 10*3/uL 2.0-7.7 [facility] Neutrophils/100 WBC (Bld) 56.9 % 47-70 [facility] Potassium [Moles/Vol] 3.9 mmol/L 3.5-5.1 [facility] Protein [Mass/Vol] 6.7 g/dL 6.4-8.2 [facility] Sodium [Moles/Vol] 140 mmol/L 136-145 [facility] WBC (Bld) [#/Vol] 4.3 10*3/uL 4.4-11.0 [facility] Blood erythrocytes count (nu mber/volume)Ordered By: Sonia Schmidt on 05-17-2023 RBC (Bld) [#/Vol] 4.26 10*6/uL 4.2-5.4 [facility] Blood hemoglobin measurement (mass/volume)Ordered By: Sonia Schmidt on 05-17-2023 Hemoglobin (Bld) [Mass/Vol] 12.9 g/dL 12.0-15.0 [facility] Blood lymphocytes/100 leukoc ytesOrdered By: Sonia Schmidt on 05-17-2023 Lymphocytes/100 WBC (Bld) 28.3 % 19-41 [facility] Blood monocytes/100 leukocyt esOrdered By: Sonia Schmidt on 05-17-2023 Monocytes/100 WBC (Bld) 9.7 % 0-10 [facility] Blood platelet mean volumeOr dered By: Sonia Schmidt on 05-17-2023 Platelet mean volume (Bld) [Entitic vol] 9.5 fL 6.2-12.0 [facility] Determination of erythrocyte mean corpuscular volume (MCV)Ordered By: Sonia Schmidt on 05-17-2023 MCV (RBC) [Entitic vol] 93.0 fL 81-99 [facility] Hematocrit Auto (Bld) [Volum e fraction]Ordered By: Sonia Schmidt on 05-17-2023 Hematocrit (Bld) [Volume fraction] 39.6 % 37-47 [facility] Laboratory - Chemistry and C hemistry - challengeOrdered By: Sonia Schmidt on 05-17-2023 ALP [Catalytic activity/Vol] 97 U/L 45-117 [facility] ALT [Catalytic activity/Vol] 40 U/L 13-56 [facility] CO2 [Moles/Vol] 28.0 mmol/L 21.0-32.0 [facility] Globulin (S) [Mass/Vol] 3.4 g/dL 2.2-4.2 [facility] Urea nitrogen/Creatinine [Mass ratio] 24.3 mg/mg 10-20 [facility] Laboratory - Hematology and Cell countsOrdered By: Sonia Schmidt on 05-17-2023 Erythrocyte distribution width (RBC) [Entitic vol] 43.2 fL 35.1-43.9 [facility] Erythrocyte distribution width (RBC) [Ratio] 12.7 % 11.6-14.6 [facility] Immature granulocytes/100 WBC (Bld) 0.200 % 0.0-0.9 [facility] Comment on above: IG% - Immature Granu locytes (promyelocytes, myelocytes and metamyelocytes) > 1% indicates that a LEFT SHIFT is Present. MCH (RBC) [Entitic mass] 30.3 pg 27.0-32.0 [facility] Nucleated RBC/100 WBC (Bld) [Ratio] 0 % 0-5 [facility] MCHC Auto (RBC) [Mass/Vol]Or dered By: Sonia Schmidt on 05-17-2023 MCHC (RBC) [Mass/Vol] 32.6 g/dL 32-36 [facility] No Panel InformationOrdered By: Sonia Schmidt on 05-17-2023 Estimated GFR (MDRD) Amer 109 mL/min >60 [facility] Comment on above: GFR Calc Estimated GFR (MDRD) Non-Af Amer 90 mL/min >60 [facility] Comment on above: Non- GFR Calc Platelets bldOrdered By: Markie Schmidt on 05-17-2023 Platelets (Bld) [#/Vol] 282 10*3/uL 150-450 [facility] Serum or plasma albumin jac urement (mass/volume)Ordered By: Sonia Schmidt on 05-17-2023 Albumin [Mass/Vol] 3.3 g/dL 3.2-5.0 [facility] Serum or plasma albumin/glob ulin mass ratioOrdered By: Sonia Schmidt on 05-17-2023 Albumin/Globulin [Mass ratio] 1.0 {ratio} 0.9-2.4 [facility] Serum or plasma calcium jac urement (mass/volume)Ordered By: Sonia Schmidt on 05-17-2023 Calcium [Mass/Vol] 8.9 mg/dL 8.5-10.1 [facility] Serum or plasma creatinine m easurement (mass/volume)Ordered By: Sonia Schmidt on 05-17-2023 Creatinine [Mass/Vol] 0.70 mg/dL 0.55-1.02 [facility] Comment on above: The validity of the calculated GFR & GFRAA in patients over 70 years has not been determined. Clinical correlation is essential. Serum or plasma urea nitroge n measurement (mass/volume)Ordered By: Sonia Schmidt on 05-17-2023 Urea nitrogen [Mass/Vol] 17 mg/dL 7-18 [facility] Thin prep Papanicolaou smear with manual screeningOrdered By: Soniamegan Schmidt on 05-17-2023 Thin prep Papanicolaou smear with manual screening 48 U/L 15-37 [facility] Thin prep Papanicolaou smear with manual screening 7 5-15 [facility] Absolute lymphocyte countOrd ered By: Jose Antonio Poole on 05-07-2023 Lymphocytes Auto (Unsp spec) [#/Vol] 1.85 10*3/uL 0.83-4.51 [facility] Basophil percentageOrdered B y: Jose Antonio Poole on 05-07-2023 Basophils/100 WBC (Bld) 0.8 % 0-1 [facility] Chloride [Moles/Vol] 110 mmol/L 98-107 [facility] Eosinophils/100 WBC (Bld) 6.2 % 0-5 [facility] Glucose [Mass/Vol] 96 mg/dL 74-106 [facility] Neutrophils (Bld) [#/Vol] 2.9 10*3/uL 2.0-7.7 [facility] Neutrophils/100 WBC (Bld) 47.5 % 47-70 [facility] Potassium [Moles/Vol] 3.7 mmol/L 3.5-5.1 [facility] Sodium [Moles/Vol] 143 mmol/L 136-145 [facility] WBC (Bld) [#/Vol] 6.1 10*3/uL 4.4-11.0 [facility] Blood erythrocytes count (nu mber/volume)Ordered By: Jose Antonio Poole on 05-07-2023 RBC (Bld) [#/Vol] 4.11 10*6/uL 4.2-5.4 [facility] Blood hemoglobin measurement (mass/volume)Ordered By: Jose Antonio Poole on 05-07-2023 Hemoglobin (Bld) [Mass/Vol] 12.8 g/dL 12.0-15.0 [facility] Blood lymphocytes/100 leukoc ytesOrdered By: Jose Antonio Poole on 05-07-2023 Lymphocytes/100 WBC (Bld) 30.2 % 19-41 [facility] Blood monocytes/100 leukocyt esOrdered By: Jose Antonio Poole on 05-07-2023 Monocytes/100 WBC (Bld) 15.0 % 0-10 [facility] Blood platelet mean volumeOr dered By: Jose Antonio Poole on 05-07-2023 Platelet mean volume (Bld) [Entitic vol] 9.2 fL 6.2-12.0 [facility] Determination of erythrocyte mean corpuscular volume (MCV)Ordered By: Jose Antonio Poole on 05-07-2023 MCV (RBC) [Entitic vol] 92.0 fL 81-99 [facility] Hematocrit Auto (Bld) [Volum e fraction]Ordered By: Jose Antonio Poole on 05-07-2023 Hematocrit (Bld) [Volume fraction] 37.8 % 37-47 [facility] Laboratory - Chemistry and C hemistry - challengeOrdered By: Jose Antonio Poole on 05-07-2023 CO2 [Moles/Vol] 29.0 mmol/L 21.0-32.0 [facility] Urea nitrogen/Creatinine [Mass ratio] 28.4 mg/mg 10-20 [facility] Laboratory - Hematology and Cell countsOrdered By: Jose Antonio Poole on 05-07-2023 Erythrocyte distribution width (RBC) [Entitic vol] 41.2 fL 35.1-43.9 [facility] Erythrocyte distribution width (RBC) [Ratio] 12.5 % 11.6-14.6 [facility] Immature granulocytes/100 WBC (Bld) 0.300 % 0.0-0.9 [facility] Comment on above: IG% - Immature Granu locytes (promyelocytes, myelocytes and metamyelocytes) > 1% indicates that a LEFT SHIFT is Present. MCH (RBC) [Entitic mass] 31.1 pg 27.0-32.0 [facility] Nucleated RBC/100 WBC (Bld) [Ratio] 0 % 0-5 [facility] MCHC Auto (RBC) [Mass/Vol]Or dered By: Jose Antonio Poole on 05-07-2023 MCHC (RBC) [Mass/Vol] 33.9 g/dL 32-36 [facility] No Panel InformationOrdered By: Jose Antonio Poole on 05-07-2023 Troponin I High Sensitivity 9 pg/mL 3.0-54.0 [facility] Comment on above: Please Note: New Maira t Units and Gender Specific Reference Ranges. For more information see Policy Stat Procedure [place] High Sensitivity Troponin (TNIH) and attachments. D-Dimer Quantitative (PE/DVT) 0.72 FEU/ug/m 0.27-0.49 [facility] Comment on above: D-Dimer ELEVATED (>0 .49): Additional studies and clinicalassessments are indicated to conclude diagnosis of:Deep Vein Thrombosis (DVT) or Pulmonary Embolism (PE)CRITICAL VALUE VERIFIED. CALLED TO STEWART CALVILLO07/08/22 0500 Micha Donahue.RESULTS READ BACK BY SAME . Estimated Creatinine Clearance Calc 74.98 ml/min [facility] Estimated GFR (MDRD) Amer 108 mL/min >60 [facility] Comment on above: GFR Calc Estimated GFR (MDRD) Non-Af Amer 89 mL/min >60 [facility] Comment on above: Non- GFR Calc Platelets bldOrdered By: Clara Poole on 05-07-2023 Platelets (Bld) [#/Vol] 259 10*3/uL 150-450 [facility] Serum or plasma calcium jac urement (mass/volume)Ordered By: Jose Antonio Poole on 05-07-2023 Calcium [Mass/Vol] 8.6 mg/dL 8.5-10.1 [facility] Serum or plasma creatinine m easurement (mass/volume)Ordered By: Jose Antonio Poole on 05-07-2023 Creatinine [Mass/Vol] 0.70 mg/dL 0.55-1.02 [facility] Comment on above: The validity of the calculated GFR & GFRAA in patients over 70 years has not been determined. Clinical correlation is essential. Serum or plasma urea nitroge n measurement (mass/volume)Ordered By: Jose Antonio Poole on 05-07-2023 Urea nitrogen [Mass/Vol] 20 mg/dL 7-18 [facility] Thin prep Papanicolaou smear with manual screeningOrdered By: Jose Antonio Poole on 05-07-2023 Thin prep Papanicolaou smear with manual screening 4 5-15 [facility] Absolute lymphocyte countOrd ered By: Lashawn Dahl on 02-15-2023 Lymphocytes Auto (Unsp spec) [#/Vol] 0.96 10*3/uL 0.83-4.51 [facility] Basophil percentageOrdered B y: Lashawn Dahl on 02-15-2023 Basophils/100 WBC (Bld) 0.9 % 0-1 [facility] Eosinophils/100 WBC (Bld) 11.0 % 0-5 [facility] Neutrophils (Bld) [#/Vol] 2.6 10*3/uL 2.0-7.7 [facility] Neutrophils/100 WBC (Bld) 56.2 % 47-70 [facility] WBC (Bld) [#/Vol] 4.6 10*3/uL 4.4-11.0 [facility] Bilirubin [Mass/Vol] 0.50 mg/dL 0.20-1.00 [facility] Comment on above: For patients on eltr ombopag therapy, use of Dimension [place] TBIL is not recommended. Chloride [Moles/Vol] 107 mmol/L 98-107 [facility] Cholesterol [Mass/Vol] 164 mg/dL <200 [facility] Comment on above: <200 mg/dL Desirable 200-240 mg/dL Borderline >240 mg/dL High Risk Glucose [Mass/Vol] 82 mg/dL 74-106 [facility] Potassium [Moles/Vol] 3.8 mmol/L 3.5-5.1 [facility] Protein [Mass/Vol] 6.3 g/dL 6.4-8.2 [facility] Sodium [Moles/Vol] 140 mmol/L 136-145 [facility] Triglyceride [Mass/Vol] 56 mg/dL <199 [facility] Comment on above: The drugs N-Acetylcy steine and Metamizole may falsely depress this assay.Serum Triglycerides Reference Interval Normal <150 mg/dL Borderline high 150 - 199 mg/dL High 200 - 499 mg/dL Very High > or = 500 mg/dL Blood erythrocytes count (nu mber/volume)Ordered By: Lashawn Dahl on 02-15-2023 RBC (Bld) [#/Vol] 4.26 10*6/uL 4.2-5.4 [facility] Blood hemoglobin measurement (mass/volume)Ordered By: Lashawn Dahl on 02-15-2023 Hemoglobin (Bld) [Mass/Vol] 13.3 g/dL 12.0-15.0 [facility] Blood lymphocytes/100 leukoc ytesOrdered By: Lashawn Dahl on 02-15-2023 Lymphocytes/100 WBC (Bld) 21.1 % 19-41 [facility] Blood monocytes/100 leukocyt esOrdered By: Lashawn Dahl on 02-15-2023 Monocytes/100 WBC (Bld) 10.1 % 0-10 [facility] Blood platelet mean volumeOr dered By: Lashawn Dahl on 02-15-2023 Platelet mean volume (Bld) [Entitic vol] 9.6 fL 6.2-12.0 [facility] Determination of erythrocyte mean corpuscular volume (MCV)Ordered By: Lashawn Dahl on 02-15-2023 MCV (RBC) [Entitic vol] 92.7 fL 81-99 [facility] Direct bilirubinOrdered By: Lashawn Dahl on 02-15-2023 Bilirubin.direct [Mass/Vol] 0.13 mg/dL 0.00-0.30 [facility] Hematocrit Auto (Bld) [Volum e fraction]Ordered By: Lashawn Dahl on 02-15-2023 Hematocrit (Bld) [Volume fraction] 39.5 % 37-47 [facility] Laboratory - Chemistry and C hemistry - challengeOrdered By: Lashawn Dahl on 02-15-2023 ALP [Catalytic activity/Vol] 101 U/L 45-117 [facility] ALT [Catalytic activity/Vol] 37 U/L 13-56 [facility] CO2 [Moles/Vol] 27.0 mmol/L 21.0-32.0 [facility] Globulin (S) [Mass/Vol] 3.2 g/dL 2.2-4.2 [facility] Urea nitrogen/Creatinine [Mass ratio] 21.2 mg/mg 10-20 [facility] Laboratory - Hematology and Cell countsOrdered By: Lashawn Dahl on 02-15-2023 Erythrocyte distribution width (RBC) [Entitic vol] 43.0 fL 35.1-43.9 [facility] Erythrocyte distribution width (RBC) [Ratio] 12.7 % 11.6-14.6 [facility] Immature granulocytes/100 WBC (Bld) 0.700 % 0.0-0.9 [facility] Comment on above: IG% - Immature Granu locytes (promyelocytes, myelocytes and metamyelocytes) > 1% indicates that a LEFT SHIFT is Present. MCH (RBC) [Entitic mass] 31.2 pg 27.0-32.0 [facility] Nucleated RBC/100 WBC (Bld) [Ratio] 0 % 0-5 [facility] MCHC Auto (RBC) [Mass/Vol]Or dered By: Lashawn Dahl on 02-15-2023 MCHC (RBC) [Mass/Vol] 33.7 g/dL 32-36 [facility] No Panel InformationOrdered By: Lashawn Dahl on 02-15-2023 Estimated GFR (MDRD) Amer 127 mL/min >60 [facility] Comment on above: GFR Calc Estimated GFR (MDRD) Non-Af Amer 105 mL/min >60 [facility] Comment on above: Non- GFR Calc Platelets bldOrdered By: Danny Dahl on 02-15-2023 Platelets (Bld) [#/Vol] 289 10*3/uL 150-450 [facility] Serum or plasma albumin jac urement (mass/volume)Ordered By: Lashawn Dahl on 02-15-2023 Albumin [Mass/Vol] 3.1 g/dL 3.2-5.0 [facility] Serum or plasma albumin/glob ulin mass ratioOrdered By: Lashawn Dahl on 02-15-2023 Albumin/Globulin [Mass ratio] 1.0 {ratio} 0.9-2.4 [facility] Serum or plasma calcium jac urement (mass/volume)Ordered By: Lashawn Dahl on 02-15-2023 Calcium [Mass/Vol] 8.6 mg/dL 8.5-10.1 [facility] Serum or plasma cholesterol in HDL measurement (mass/volume)Ordered By: Lashawn Dahl on 02-15-2023 Cholesterol in HDL [Mass/Vol] 87 mg/dL >40 [facility] Comment on above: The drugs N-Acetylcy steine and Metamizole may falsely depress this assay. Reference Range HDL <40 mg/dL Low HDL Cholesterol HDL >or= 60 mg/dL High HDL Cholesterol Serum or plasma cholesterol in VLDL measurement (mass/volume)Ordered By: Lashawn Dahl on 02-15-2023 Cholesterol in VLDL [Mass/Vol] 11 mg/dL 5-40 [facility] Serum or plasma creatinine m easurement (mass/volume)Ordered By: Lashawn Dahl on 02-15-2023 Creatinine [Mass/Vol] 0.61 mg/dL 0.55-1.02 [facility] Comment on above: The validity of the calculated GFR & GFRAA in patients over 70 years has not been determined. Clinical correlation is essential. Serum or plasma low density lipoprotein (LDL) cholesterol measurement (mass/volume)Ordered By: Lashawn Dahl on 02-15-2023 Cholesterol in LDL [Mass/Vol] 66 mg/dL 0-130 [facility] Serum or plasma urea nitroge n measurement (mass/volume)Ordered By: Lashawn Dahl on 02-15-2023 Urea nitrogen [Mass/Vol] 13 mg/dL 7-18 [facility] Thin prep Papanicolaou smear with manual screeningOrdered By: Lashawn Dhal on 02-15-2023 Thin prep Papanicolaou smear with manual screening 33 U/L 15-37 [facility] Thin prep Papanicolaou smear with manual screening 6 5-15 [facility] Absolute lymphocyte countOrd ered By: Sonia Schmidt on 11-29-2022 Lymphocytes Auto (Unsp spec) [#/Vol] 1.14 10*3/uL 0.83-4.51 [facility] Basophil percentageOrdered B y: Sonia Schmidt on 11-29-2022 Basophils/100 WBC (Bld) 0.7 % 0-1 [facility] Bilirubin [Mass/Vol] 0.30 mg/dL 0.20-1.00 [facility] Comment on above: For patients on eltr ombopag therapy, use of Dimension [place] TBIL is not recommended. Chloride [Moles/Vol] 108 mmol/L 98-107 [facility] Eosinophils/100 WBC (Bld) 4.2 % 0-5 [facility] Glucose [Mass/Vol] 94 mg/dL 74-106 [facility] Neutrophils (Bld) [#/Vol] 2.7 10*3/uL 2.0-7.7 [facility] Neutrophils/100 WBC (Bld) 58.4 % 47-70 [facility] Potassium [Moles/Vol] 3.9 mmol/L 3.5-5.1 [facility] Protein [Mass/Vol] 6.2 g/dL 6.4-8.2 [facility] Sodium [Moles/Vol] 142 mmol/L 136-145 [facility] WBC (Bld) [#/Vol] 4.6 10*3/uL 4.4-11.0 [facility] Blood erythrocytes count (nu mber/volume)Ordered By: Sonia Schmidt on 11-29-2022 RBC (Bld) [#/Vol] 3.85 10*6/uL 4.2-5.4 [facility] Blood hemoglobin measurement (mass/volume)Ordered By: Sonia Schmidt on 11-29-2022 Hemoglobin (Bld) [Mass/Vol] 12.1 g/dL 12.0-15.0 [facility] Blood lymphocytes/100 leukoc ytesOrdered By: Sonia Schmidt on 11-29-2022 Lymphocytes/100 WBC (Bld) 24.9 % 19-41 [facility] Blood monocytes/100 leukocyt esOrdered By: Sonia Schmidt on 11-29-2022 Monocytes/100 WBC (Bld) 11.6 % 0-10 [facility] Blood platelet mean volumeOr dered By: Sonia Schmidt on 11-29-2022 Platelet mean volume (Bld) [Entitic vol] 9.7 fL 6.2-12.0 [facility] Determination of erythrocyte mean corpuscular volume (MCV)Ordered By: Sonia Schmidt on 11-29-2022 MCV (RBC) [Entitic vol] 92.5 fL 81-99 [facility] Hematocrit Auto (Bld) [Volum e fraction]Ordered By: Sonia Schmidt on 11-29-2022 Hematocrit (Bld) [Volume fraction] 35.6 % 37-47 [facility] Laboratory - Chemistry and C hemistry - challengeOrdered By: Soniamegan Schmidt on 11-29-2022 ALP [Catalytic activity/Vol] 105 U/L 45-117 [facility] ALT [Catalytic activity/Vol] 33 U/L 13-56 [facility] CO2 [Moles/Vol] 29.0 mmol/L 21.0-32.0 [facility] Globulin (S) [Mass/Vol] 3.2 g/dL 2.2-4.2 [facility] Urea nitrogen/Creatinine [Mass ratio] 22.8 mg/mg 10-20 [facility] Laboratory - Hematology and Cell countsOrdered By: Sonia Schmidt on 11-29-2022 Erythrocyte distribution width (RBC) [Entitic vol] 41.6 fL 35.1-43.9 [facility] Erythrocyte distribution width (RBC) [Ratio] 12.6 % 11.6-14.6 [facility] Immature granulocytes/100 WBC (Bld) 0.200 % 0.0-0.9 [facility] Comment on above: IG% - Immature Granu locytes (promyelocytes, myelocytes and metamyelocytes) > 1% indicates that a LEFT SHIFT is Present. MCH (RBC) [Entitic mass] 31.4 pg 27.0-32.0 [facility] Nucleated RBC/100 WBC (Bld) [Ratio] 0 % 0-5 [facility] MCHC Auto (RBC) [Mass/Vol]Or dered By: Sonia Schmidt on 11-29-2022 MCHC (RBC) [Mass/Vol] 34.0 g/dL 32-36 [facility] No Panel InformationOrdered By: Sonia Schmidt on 11-29-2022 Estimated GFR (MDRD) Amer 109 mL/min >60 [facility] Comment on above: GFR Calc Estimated GFR (MDRD) Non-Af Amer 90 mL/min >60 [facility] Comment on above: Non- GFR Calc Platelets bldOrdered By: Markie Schmidt on 11-29-2022 Platelets (Bld) [#/Vol] 255 10*3/uL 150-450 [facility] Serum or plasma albumin jac urement (mass/volume)Ordered By: Sonia Schmidt on 11-29-2022 Albumin [Mass/Vol] 3.0 g/dL 3.2-5.0 [facility] Serum or plasma albumin/glob ulin mass ratioOrdered By: Sonia Schmidt on 11-29-2022 Albumin/Globulin [Mass ratio] 0.9 {ratio} 0.9-2.4 [facility] Serum or plasma calcium jac urement (mass/volume)Ordered By: Sonia Schmidt on 11-29-2022 Calcium [Mass/Vol] 8.3 mg/dL 8.5-10.1 [facility] Serum or plasma creatinine m easurement (mass/volume)Ordered By: Sonia Schmidt on 11-29-2022 Creatinine [Mass/Vol] 0.70 mg/dL 0.55-1.02 [facility] Comment on above: The validity of the calculated GFR & GFRAA in patients over 70 years has not been determined. Clinical correlation is essential. Serum or plasma urea nitroge n measurement (mass/volume)Ordered By: Sonia Schmidt on 11-29-2022 Urea nitrogen [Mass/Vol] 16 mg/dL -18 [facility] Thin prep Papanicolaou smear with manual screeningOrdered By: Sonia Schmidt on 11-29-2022 Thin prep Papanicolaou smear with manual screening 35 U/L -37 [facility] Thin prep Papanicolaou smear with manual screening 5 5-15 [facility] Basophil percentageOrdered B y: Pam Dickinson on 11-10-2022 Bilirubin [Mass/Vol] 0.50 mg/dL 0.20-1.00 [facility] Comment on above: For patients on eltr ombopag therapy, use of Dimension [place] TBIL is not recommended. Chloride [Moles/Vol] 107 mmol/L 98-107 [facility] Glucose [Mass/Vol] 86 mg/dL 74-106 [facility] Potassium [Moles/Vol] 3.7 mmol/L 3.5-5.1 [facility] Protein [Mass/Vol] 6.4 g/dL 6.4-8.2 [facility] Sodium [Moles/Vol] 139 mmol/L 136-145 [facility] Laboratory - Chemistry and C hemistry - challengeOrdered By: Pam Dickinson on 11-10-2022 ALP [Catalytic activity/Vol] 106 U/L 45-117 [facility] ALT [Catalytic activity/Vol] 25 U/L 13-56 [facility] CO2 [Moles/Vol] 28.0 mmol/L 21.0-32.0 [facility] Globulin (S) [Mass/Vol] 3.4 g/dL 2.2-4.2 [facility] Urea nitrogen/Creatinine [Mass ratio] 29.8 mg/mg 10-20 [facility] No Panel InformationOrdered By: Pam Dickinson on 11-10-2022 Estimated GFR (MDRD) Amer 148 mL/min >60 [facility] Comment on above: GFR Calc Estimated GFR (MDRD) Non-Af Amer 123 mL/min >60 [facility] Comment on above: Non- GFR Calc Thyroid Stimulating Hormone (TSH) 0.90 uIU/mL 0.358-3.74 [facility] [facility] Vitamin D 25-Hydroxy 39.5 ng/mL [facility] Comment on above: Vitamin D 25(OH) Sta tus Range Deficiency <20 ng/mL (50nmol/L) Insufficiency 20 - 30 ng/mL (50 - 75 nmol/L) Sufficiency 30 - 100 ng/mL (75 - 250 nmol/L) Toxicity >100 ng/mL (>250 nmol/L) Serum or plasma albumin jac urement (mass/volume)Ordered By: Pam Dickinson on 11-10-2022 Albumin [Mass/Vol] 3.0 g/dL 3.2-5.0 [facility] Serum or plasma albumin/glob ulin mass ratioOrdered By: Pam Dickinson on 11-10-2022 Albumin/Globulin [Mass ratio] 0.9 {ratio} 0.9-2.4 [facility] Serum or plasma calcium jac urement (mass/volume)Ordered By: Pam Dickinson on 11-10-2022 Calcium [Mass/Vol] 8.8 mg/dL 8.5-10.1 [facility] Serum or plasma creatinine m easurement (mass/volume)Ordered By: Pam Dickinson on 11-10-2022 Creatinine [Mass/Vol] 0.54 mg/dL 0.55-1.02 [facility] Comment on above: The validity of the calculated GFR & GFRAA in patients over 70 years has not been determined. Clinical correlation is essential. Serum or plasma urea nitroge n measurement (mass/volume)Ordered By: Pam Dickinson on 11-10-2022 Urea nitrogen [Mass/Vol] 16 mg/dL 7-18 [facility] Thin prep Papanicolaou smear with manual screeningOrdered By: Pam Dickinson on 11-10-2022 Thin prep Papanicolaou smear with manual screening 28 U/L 15-37 [facility] Thin prep Papanicolaou smear with manual screening 4 5-15 [facility] Absolute lymphocyte countOrd ered By: Wilian Cyr on 11-08-2022 Lymphocytes Auto (Unsp spec) [#/Vol] 1.17 10*3/uL 0.83-4.51 [facility] Basophil percentageOrdered B y: Wilian Cyr on 11-08-2022 Basophils/100 WBC (Bld) 1.0 % 0-1 [facility] Eosinophils/100 WBC (Bld) 3.5 % 0-5 [facility] Neutrophils (Bld) [#/Vol] 2.3 10*3/uL 2.0-7.7 [facility] Neutrophils/100 WBC (Bld) 56.9 % 47-70 [facility] WBC (Bld) [#/Vol] 4.0 10*3/uL 4.4-11.0 [facility] Blood erythrocytes count (nu mber/volume)Ordered By: Wilian Cyr on 11-08-2022 RBC (Bld) [#/Vol] 4.22 10*6/uL 4.2-5.4 [facility] Blood hemoglobin measurement (mass/volume)Ordered By: Wilian Cyr on 11-08-2022 Hemoglobin (Bld) [Mass/Vol] 13.4 g/dL 12.0-15.0 [facility] Blood lymphocytes/100 leukoc ytesOrdered By: Wilian Cyr on 11-08-2022 Lymphocytes/100 WBC (Bld) 29.0 % 19-41 [facility] Blood monocytes/100 leukocyt esOrdered By: Wilian Cyr on 11-08-2022 Monocytes/100 WBC (Bld) 9.4 % 0-10 [facility] Blood platelet mean volumeOr dered By: Wilian Cyr on 11-08-2022 Platelet mean volume (Bld) [Entitic vol] 9.5 fL 6.2-12.0 [facility] Determination of erythrocyte mean corpuscular volume (MCV)Ordered By: Wilian Cyr on 11-08-2022 MCV (RBC) [Entitic vol] 93.1 fL 81-99 [facility] Hematocrit Auto (Bld) [Volum e fraction]Ordered By: Wilian Cyr on 11-08-2022 Hematocrit (Bld) [Volume fraction] 39.3 % 37-47 [facility] Laboratory - Hematology and Cell countsOrdered By: Wilian Cyr on 11-08-2022 Erythrocyte distribution width (RBC) [Entitic vol] 41.8 fL 35.1-43.9 [facility] Erythrocyte distribution width (RBC) [Ratio] 12.3 % 11.6-14.6 [facility] Immature granulocytes/100 WBC (Bld) 0.200 % 0.0-0.9 [facility] Comment on above: IG% - Immature Granu locytes (promyelocytes, myelocytes and metamyelocytes) > 1% indicates that a LEFT SHIFT is Present. MCH (RBC) [Entitic mass] 31.8 pg 27.0-32.0 [facility] Nucleated RBC/100 WBC (Bld) [Ratio] 0 % 0-5 [facility] MCHC Auto (RBC) [Mass/Vol]Or dered By: Wilian Cyr on 11-08-2022 MCHC (RBC) [Mass/Vol] 34.1 g/dL 32-36 [facility] Platelets bldOrdered By: Annel Cyr on 11-08-2022 Platelets (Bld) [#/Vol] 271 10*3/uL 150-450 [facility] Absolute lymphocyte countOrd ered By: Dr. Schmidt on 09-13-2022 Lymphocytes Auto (Unsp spec) [#/Vol] 0.96 10*3/uL 0.83-4.51 [facility] Basophil percentageOrdered B y: Dr. Schmidt on 09-13-2022 Basophils/100 WBC (Bld) 0.8 % 0-1 [facility] Bilirubin [Mass/Vol] 0.40 mg/dL 0.20-1.00 [facility] Comment on above: For patients on eltr ombopag therapy, use of Dimension [place] TBIL is not recommended. Chloride [Moles/Vol] 105 mmol/L 98-107 [facility] Eosinophils/100 WBC (Bld) 4.4 % 0-5 [facility] Glucose [Mass/Vol] 88 mg/dL 74-106 [facility] Neutrophils (Bld) [#/Vol] 3.3 10*3/uL 2.0-7.7 [facility] Neutrophils/100 WBC (Bld) 65.4 % 47-70 [facility] Potassium [Moles/Vol] 4.0 mmol/L 3.5-5.1 [facility] Protein [Mass/Vol] 6.5 g/dL 6.4-8.2 [facility] Sodium [Moles/Vol] 141 mmol/L 136-145 [facility] WBC (Bld) [#/Vol] 5.0 10*3/uL 4.4-11.0 [facility] Blood erythrocytes count (nu mber/volume)Ordered By: Dr. Schmidt on 09-13-2022 RBC (Bld) [#/Vol] 4.27 10*6/uL 4.2-5.4 [facility] Blood hemoglobin measurement (mass/volume)Ordered By: Dr. Schmidt on 09-13-2022 Hemoglobin (Bld) [Mass/Vol] 13.3 g/dL 12.0-15.0 [facility] Blood lymphocytes/100 leukoc ytesOrdered By: Dr. Schmidt on 09-13-2022 Lymphocytes/100 WBC (Bld) 19.1 % 19-41 [facility] Blood monocytes/100 leukocyt esOrdered By: Dr. Schmidt on 09-13-2022 Monocytes/100 WBC (Bld) 9.9 % 0-10 [facility] Blood platelet mean volumeOr dered By: Dr. Schmidt on 09-13-2022 Platelet mean volume (Bld) [Entitic vol] 9.7 fL 6.2-12.0 [facility] Determination of erythrocyte mean corpuscular volume (MCV)Ordered By: Dr. Schmidt on 09-13-2022 MCV (RBC) [Entitic vol] 93.9 fL 81-99 [facility] Hematocrit Auto (Bld) [Volum e fraction]Ordered By: Dr. Schmidt on 09-13-2022 Hematocrit (Bld) [Volume fraction] 40.1 % 37-47 [facility] Laboratory - Chemistry and C hemistry - challengeOrdered By: Dr. Schmidt on 09-13-2022 ALP [Catalytic activity/Vol] 100 U/L 45-117 [facility] ALT [Catalytic activity/Vol] 31 U/L 13-56 [facility] CO2 [Moles/Vol] 31.0 mmol/L 21.0-32.0 [facility] Globulin (S) [Mass/Vol] 3.3 g/dL 2.2-4.2 [facility] Urea nitrogen/Creatinine [Mass ratio] 30.5 mg/mg 10-20 [facility] Laboratory - Hematology and Cell countsOrdered By: Dr. Schmidt on 09-13-2022 Erythrocyte distribution width (RBC) [Entitic vol] 41.7 fL 35.1-43.9 [facility] Erythrocyte distribution width (RBC) [Ratio] 12.2 % 11.6-14.6 [facility] Immature granulocytes/100 WBC (Bld) 0.400 % 0.0-0.9 [facility] Comment on above: IG% - Immature Granu locytes (promyelocytes, myelocytes and metamyelocytes) > 1% indicates that a LEFT SHIFT is Present. MCH (RBC) [Entitic mass] 31.1 pg 27.0-32.0 [facility] Nucleated RBC/100 [facility]Bld) [[facility]] 0 % [facility] [Mass/Vol]Or dered By: Dr. Schmidt on 09-13-2022 MCHC (RBC) [Mass/Vol] 33.2 g/dL 32-36 [facility] No Panel InformationOrdered By: Dr. Schmidt on 09-13-2022 Estimated GFR (MDRD) Amer 133 mL/min >60 [facility] Comment on above: GFR Calc Estimated GFR (MDRD) Non-Af Amer 110 mL/min >60 [facility] Comment on above: Non- GFR Calc Platelets bldOrdered By: Dr. Schmidt on 09-13-2022 Platelets (Bld) [#/Vol] 256 10*3/uL 150-450 [facility] Serum or plasma albumin jac urement (mass/volume)Ordered By: Dr. Schmidt on 09-13-2022 Albumin [Mass/Vol] 3.2 g/dL 3.2-5.0 [facility] Serum or plasma albumin/glob ulin mass ratioOrdered By: Dr. Schmidt on 09-13-2022 Albumin/Globulin [Mass ratio] 1.0 {ratio} 0.9-2.4 [facility] Serum or plasma calcium jac urement (mass/volume)Ordered By: Dr. Schmidt on 09-13-2022 Calcium [Mass/Vol] 9.0 mg/dL 8.5-10.1 [facility] Serum or plasma creatinine m easurement (mass/volume)Ordered By: Dr. Schmidt on 09-13-2022 Creatinine [Mass/Vol] 0.59 mg/dL 0.55-1.02 [facility] Comment on above: The validity of the calculated GFR & GFRAA in patients over 70 years has not been determined. Clinical correlation is essential. Serum or plasma urea nitroge n measurement (mass/volume)Ordered By: Dr. Schmidt on 09-13-2022 Urea nitrogen [Mass/Vol] 18 mg/dL 7-18 [facility] Thin prep Papanicolaou smear with manual screeningOrdered By: Dr. Schmidt on 09-13-2022 Thin prep Papanicolaou smear with manual screening 29 U/L 15-37 [facility] Thin prep Papanicolaou smear with manual screening 5 5-15 [facility] Absolute lymphocyte countOrd ered By: Dr. Schmidt on 06-10-2022 Lymphocytes Auto (Unsp spec) [#/Vol] 1.12 10*3/uL 0.83-4.51 [facility] Basophil percentageOrdered B y: Dr. Schmidt on 06-10-2022 Basophils/100 WBC (Bld) 0.7 % 0-1 [facility] Bilirubin [Mass/Vol] 0.40 mg/dL 0.20-1.00 [facility] Comment on above: For patients on eltr ombopag therapy, use of Dimension [place] TBIL is not recommended. Chloride [Moles/Vol] 104 mmol/L 98-107 [facility] Eosinophils/100 WBC (Bld) 3.9 % 0-5 [facility] Glucose [Mass/Vol] 81 mg/dL 74-106 [facility] Neutrophils (Bld) [#/Vol] 2.7 10*3/uL 2.0-7.7 [facility] Neutrophils/100 WBC (Bld) 60.3 % 47-70 [facility] Potassium [Moles/Vol] 3.8 mmol/L 3.5-5.1 [facility] Protein [Mass/Vol] 6.6 g/dL 6.4-8.2 [facility] Sodium [Moles/Vol] 140 mmol/L 136-145 [facility] WBC (Bld) [#/Vol] 4.4 10*3/uL 4.4-11.0 [facility] Blood erythrocytes count (nu mber/volume)Ordered By: Dr. Schmidt on 06-10-2022 RBC (Bld) [#/Vol] 4.20 10*6/uL 4.2-5.4 [facility] Blood hemoglobin measurement (mass/volume)Ordered By: Dr. Schmidt on 06-10-2022 Hemoglobin (Bld) [Mass/Vol] 13.4 g/dL 12.0-15.0 [facility] Blood lymphocytes/100 leukoc ytesOrdered By: Dr. Schmidt on 06-10-2022 Lymphocytes/100 WBC (Bld) 25.5 % 19-41 [facility] Blood monocytes/100 leukocyt esOrdered By: Dr. Schmidt on 06-10-2022 Monocytes/100 WBC (Bld) 8.9 % 0-10 [facility] Blood platelet mean volumeOr dered By: Dr. Schmidt on 06-10-2022 Platelet mean volume (Bld) [Entitic vol] 9.6 fL 6.2-12.0 [facility] Determination of erythrocyte mean corpuscular volume (MCV)Ordered By: Dr. Schmidt on 06-10-2022 MCV (RBC) [Entitic vol] 94.8 fL 81-99 [facility] Hematocrit Auto (Bld) [Volum e fraction]Ordered By: Dr. Schmidt on 06-10-2022 Hematocrit (Bld) [Volume fraction] 39.8 % 37-47 [facility] Laboratory - Chemistry and C hemistry - challengeOrdered By: Dr. Schmidt on 06-10-2022 ALP [Catalytic activity/Vol] 97 U/L 45-117 [facility] ALT [Catalytic activity/Vol] 34 U/L 13-56 [facility] CO2 [Moles/Vol] 30.0 mmol/L 21.0-32.0 [facility] Globulin (S) [Mass/Vol] 3.5 g/dL 2.2-4.2 [facility] Urea nitrogen/Creatinine [Mass ratio] 26.2 mg/mg 10-20 [facility] Laboratory - Hematology and Cell countsOrdered By: Dr. Schmidt on 06-10-2022 Erythrocyte distribution width (RBC) [Entitic vol] 41.8 fL 35.1-43.9 [facility] Erythrocyte distribution width (RBC) [Ratio] 12.1 % 11.6-14.6 [facility] Immature granulocytes/100 WBC (Bld) 0.700 % 0.0-0.9 [facility] Comment on above: IG% - Immature Granu locytes (promyelocytes, myelocytes and metamyelocytes) > 1% indicates that a LEFT SHIFT is Present. MCH (RBC) [Entitic mass] 31.9 pg 27.0-32.0 [facility] Nucleated RBC/100 WBC (Bld) [Ratio] 0 % 0-5 [facility] ([facility]) [Mass/Vol]Or dered By: Dr. Schmidt on 06-10-2022 MCHC (RBC) [Mass/Vol] 33.7 g/dL 32-36 [facility] No Panel InformationOrdered By: Dr. Schmidt on 06-10-2022 Estimated GFR (MDRD) Amer 120 mL/min >60 [facility] Comment on above: GFR Calc Estimated GFR (MDRD) Non-Af Amer 99 mL/min >60 [facility] Comment on above: Non- GFR Calc Platelets bldOrdered By: Dr. Schmidt on 06-10-2022 Platelets (Bld) [#/Vol] 268 10*3/uL 150-450 [facility] Serum or plasma albumin jac urement (mass/volume)Ordered By: Dr. Schmidt on 06-10-2022 Albumin [Mass/Vol] 3.1 g/dL 3.2-5.0 [facility] Serum or plasma albumin/glob ulin mass ratioOrdered By: Dr. Schmidt on 06-10-2022 Albumin/Globulin [Mass ratio] 0.9 {ratio} 0.9-2.4 [facility] Serum or plasma calcium jac urement (mass/volume)Ordered By: Dr. Schmidt on 06-10-2022 Calcium [Mass/Vol] 9.0 mg/dL 8.5-10.1 [facility] Serum or plasma creatinine m easurement (mass/volume)Ordered By: Dr. Schmidt on 06-10-2022 Creatinine [Mass/Vol] 0.65 mg/dL 0.55-1.02 [facility] Comment on above: The validity of the calculated GFR & GFRAA in patients over 70 years has not been determined. Clinical correlation is essential. Serum or plasma urea nitroge n measurement (mass/volume)Ordered By: Dr. Schmidt on 06-10-2022 Urea nitrogen [Mass/Vol] 17 mg/dL 7-18 [facility] Thin prep Papanicolaou smear with manual screeningOrdered By: Dr. Schmidt on 06-10-2022 Thin prep Papanicolaou smear with manual screening 30 U/L 15-37 [facility] Thin prep Papanicolaou smear with manual screening 6 5-15 [facility] ROSIE SCREENINGon 04-01-2022 [facility] ANES POSTPROC EVALon 022 ANES POSTPROC EVAL HNO ID: [id number] Author: Pamella Trujillo APRN.OPERATING ROOM ASSISTANT Service: Anesthesiology Author Type: Nurse Design Director Type: Anesthesia Postprocedure Evaluation Filed: 03/25/2022 11:53 AM Note Text: POST ANESTHESIA EVALUATION NOTE : 1960 Procedure Summary Date: 03/25/22 Room / Location: SURGERY Anesthesia Start: 1121 Anesthesia Stop: 1152 Procedure: COLONOSCOPY SCREENING Diagnosis: Family history of colon cancer Scheduled Providers: Joelle Casas MD; Pamella Trujillo APRN.OPERATING ROOM ASSISTANT Responsible Provider: Pamella Trujillo APRN.OPERATING ROOM ASSISTANT Anesthesia Type: MAC ASA Status: 2 Anesthesia [...] Anesthesia Observations No Documentation SIGNATURE: Pamella Trujillo APRN.OPERATING ROOM ASSISTANT PATIENT NAME: Serafin Pruett DATE: March 25, 2022 TIME: 11:52 AM CSN: [id number] [facility] ANES PRE-OPon 03-25-2022 ANES PRE-OP HNO ID: [id number] Author: Pamella Trujillo APRN.OPERATING ROOM ASSISTANT Service: Anesthesiology Author Type: Nurse Design Director Type: Anesthesia Preprocedure Evaluation Filed: 03/25/2022 11:02 AM Note Text: ANESTHESIOLOGY DAY OF SURGERY NOTE : 1960 Procedure Information Date/Time: 03/25/22 1130 Scheduled providers: Joelle Casas MD; Pamella Trujillo APRN.OPERATING ROOM ASSISTANT Procedure: COLONOSCOPY SCREENING Location: LD SURGERY Estimated body mass index is 31.12 kg/m? as calculated from the following: Height as of 03/22/22: 165.1 cm (5' 5). Weight as of 03/22/22: 84.8 kg (187 [...] and consent discussed: yes. Patient / Responsible Democrat agrees to proceed: yes Patient / Surrogate [...] 48 hours of Surgery/Procedure. SIGNATURE: Pamella Trujillo APRN.CRNA PATIENT NAME: Serafin Pruett DATE: March 25, 2022 TIME: 11:01 AM CSN: [id number] [facility] BRIEF OP NOTon 03-25-2022 BRIEF OP NOT HNO ID: [id number] Author: Joelle Casas MD Service: General Surgery Author Type: Physician Type: Brief Op Note Filed: 03/25/2022 11:49 AM Note Text: BRIEF OPERATIVE NOTE SURGERY DATE: 03/25/2022 Incision/Procedure Start Time: 11:25 cecal intubation time: 11:38 Incision Close/Procedure End Time: 11:47 Surgeon(s)/Procedurali st(s) and Nailing Machine Operator(s): [email or web address] Procedures: colonoscopy Anesthesia: MAC Findings: hemorrhoids Estimated Blood Loss: 0 ml Specimens: None Complications: None Preop Diagnosis: screening for colon cancer - high risk family history of colon cancer Postop Diagnosis: same as above, hemorrhoids SIGNATURE: Joelle Casas MD PATIENT NAME: Serafin Pruett DATE: March 25, 2022 TIME: 11:48 AM Acct: [id number] [facility] HISTORY PHYSICALon HISTORY PHYSICAL HNO ID: [id number] Author: Joelle Casas MD Service: General Surgery [...] Colon Cancer Father other (triple bypass) Father CA x 2 other (near kidney/liver failure) Father Emphysema Brother Cancer Maternal Grandmother Breast Cancer Colon Cancer Maternal Grandmother Stroke Paternal Grandmother Heart Paternal Grandfather Cancer Maternal Aunt Abdominal Cancer ??etiology REVIEW OF SYMPTOMS: The review of systems data was entered by the nurse and reviewed by me Nursing Notes: Mary Deutsch RN 03/08/2022 8:12 [...] epilepsy/convulsions, denies (more content not included)... Normal [facility] OPERATIVE NOon 03-25-2022 OPERATIVE NO HNO ID: [id number] Author: Joelle Casas MD Service: General Surgery Author Type: Physician Type: Operative Report Filed: 03/26/2022 7:28 AM Note Text: [facility] [place] : 1960 AGE: 62. SEX: F PATIENT TYPE: O HOSP SVC: LOCATION: ATTENDING PHYSICIAN: PAMELLA TRUJILLO [facility] NUMBER: [id number] DATE OF SURGERY/PROCEDURE: 03/25/2022 INCISION/PROCEDURE START TIME: 11:25 AM INCISION CLOSE/PROCEDURE END TIME: 11:47 AM PREOPERATIVE DIAGNOSIS: Family history of colon cancer. POSTOPERATIVE DIAGNOSIS: Family history of colon cancer and hemorrhoids. SURGEON: Joelle Casas MD POWER SWITCHBOARD OPERATOR: No Additional Staff SURGERY/PROCEDURE: Screening colonoscopy for high risk for colon cancer. ANESTHESIA: Monitored anesthesia care. LOCATION: [facility]. FINDINGS: Hemorrhoids. INDICATIONS: Serafin Pruett is [...] ESTIMATED BLOOD LOSS: None. Joelle Casas MD LW:[id number] Normal [facility] Absolute lymphocyte countOrd ered By: Dr. Schmidt on 03-08-2022 Lymphocytes Auto (Unsp spec) [#/Vol] 1.24 10*3/uL 0.83-4.51 [facility] Basophil percentageOrdered B y: Dr. Schmidt on 03-08-2022 Basophils/100 WBC (Bld) 0.9 % 0-1 [facility] Bilirubin [Mass/Vol] 0.50 mg/dL 0.20-1.00 [facility] Comment on above: For patients on eltr ombopag therapy, use of Dimension [place] TBIL is not recommended. Chloride [Moles/Vol] 107 mmol/L 98-107 [facility] Eosinophils/100 WBC (Bld) 4.5 % 0-5 [facility] Glucose [Mass/Vol] 73 mg/dL 74-106 [facility] Neutrophils (Bld) [#/Vol] 2.7 10*3/uL 2.0-7.7 [facility] Neutrophils/100 WBC (Bld) 58.2 % 47-70 [facility] Potassium [Moles/Vol] 4.2 mmol/L 3.5-5.1 [facility] Protein [Mass/Vol] 6.7 g/dL 6.4-8.2 [facility] Sodium [Moles/Vol] 141 mmol/L 136-145 [facility] WBC (Bld) [#/Vol] 4.7 10*3/uL 4.4-11.0 [facility] Blood erythrocytes count (nu mber/volume)Ordered By: Dr. Schmidt on 03-08-2022 RBC (Bld) [#/Vol] 4.17 10*6/uL 4.2-5.4 [facility] Blood hemoglobin measurement (mass/volume)Ordered By: Dr. Schmidt on 03-08-2022 Hemoglobin (Bld) [Mass/Vol] 13.2 g/dL 12.0-15.0 [facility] Blood lymphocytes/100 leukoc ytesOrdered By: Dr. Schmidt on 03-08-2022 Lymphocytes/100 WBC (Bld) 26.4 % 19-41 [facility] Blood monocytes/100 leukocyt esOrdered By: Dr. Schmidt on 03-08-2022 Monocytes/100 WBC (Bld) 9.6 % 0-10 [facility] Blood platelet mean volumeOr dered By: Dr. Schmidt on 03-08-2022 Platelet mean volume (Bld) [Entitic vol] 10.3 fL 6.2-12.0 [facility] Determination of erythrocyte mean corpuscular volume (MCV)Ordered By: Dr. Schmidt on 03-08-2022 MCV (RBC) [Entitic vol] 92.3 fL 81-99 [facility] Hematocrit Auto (Bld) [Volum e fraction]Ordered By: Dr. Schmidt on 03-08-2022 Hematocrit (Bld) [Volume fraction] 38.5 % 37-47 [facility] Laboratory - Chemistry and C hemistry - challengeOrdered By: Dr. Schmidt on 03-08-2022 ALP [Catalytic activity/Vol] 101 U/L 45-117 [facility] ALT [Catalytic activity/Vol] 30 U/L 13-56 [facility] CO2 [Moles/Vol] 32.0 mmol/L 21.0-32.0 [facility] Globulin (S) [Mass/Vol] 3.4 g/dL 2.2-4.2 [facility] Urea nitrogen/Creatinine [Mass ratio] 21.5 mg/mg 10-20 [facility] Laboratory - Hematology and Cell countsOrdered By: Dr. Schmidt on 03-08-2022 Erythrocyte distribution width (RBC) [Entitic vol] 40.8 fL 35.1-43.9 [facility] Erythrocyte distribution width (RBC) [Ratio] 12.3 % 11.6-14.6 [facility] Immature granulocytes/100 WBC (Bld) 0.400 % 0.0-0.9 [facility] Comment on above: IG% - Immature Granu locytes (promyelocytes, myelocytes and metamyelocytes) > 1% indicates that a LEFT SHIFT is Present. MCH (RBC) [Entitic mass] 31.7 pg 27.0-32.0 [facility] Nucleated RBC/100 WBC (Bld) [Ratio] 0 % 0-5 [facility] MCHC Auto (RBC) [Mass/Vol]Or dered By: Dr. Schmidt on 03-08-2022 MCHC (RBC) [Mass/Vol] 34.3 g/dL 32-36 [facility] No Panel InformationOrdered By: Dr. Schmidt on 03-08-2022 Estimated GFR (MDRD) Amer 129 mL/min >60 [facility] Comment on above: GFR Calc Estimated GFR (MDRD) Non-Af Amer 107 mL/min >60 [facility] Comment on above: Non- GFR Calc Platelets bldOrdered By: Dr. Schmidt on 03-08-2022 Platelets (Bld) [#/Vol] 247 10*3/uL 150-450 [facility] Serum or plasma albumin jac urement (mass/volume)Ordered By: Dr. Schmidt on 03-08-2022 Albumin [Mass/Vol] 3.3 g/dL 3.2-5.0 [facility] Serum or plasma albumin/glob ulin mass ratioOrdered By: Dr. Schmidt on 03-08-2022 Albumin/Globulin [Mass ratio] 1.0 {ratio} 0.9-2.4 [facility] Serum or plasma calcium jac urement (mass/volume)Ordered By: Dr. Schmidt on 03-08-2022 Calcium [Mass/Vol] 9.2 mg/dL 8.5-10.1 [facility] Serum or plasma creatinine m easurement (mass/volume)Ordered By: Dr. Schmidt on 03-08-2022 Creatinine [Mass/Vol] 0.60 mg/dL 0.55-1.02 [facility] Comment on above: The validity of the calculated GFR & GFRAA in patients over 70 years has not been determined. Clinical correlation is essential. Serum or plasma urea nitroge n measurement (mass/volume)Ordered By: Dr. Schmidt on 03-08-2022 Urea nitrogen [Mass/Vol] 13 mg/dL 7-18 [facility] Thin prep Papanicolaou smear with manual screeningOrdered By: Dr. Schmidt on 03-08-2022 Thin prep Papanicolaou smear with manual screening 37 U/L 15-37 [facility] Thin prep Papanicolaou smear with manual screening 2 5-15 [facility] Absolute lymphocyte counton 12-28-2021 Lymphocytes Auto (Unsp spec) [#/Vol] 1.07 10*3/uL 0.83-4.51 [facility] Work Phone: Basophil percentageon 2021 Basophils/100 WBC (Bld) 0.8 % 0-1 [facility] Work Phone: Bilirubin [Mass/Vol] 0.30 mg/dL 0.20-1.00 [facility] Work Phone: Comment on above: For patients on eltr ombopag therapy, use of Dimension [place] TBIL is not recommended. Chloride [Moles/Vol] 105 mmol/L 98-107 [facility] Work Phone: Eosinophils/100 WBC (Bld) 5.7 % 0-5 [facility] Work Phone: Glucose [Mass/Vol] 90 mg/dL 74-106 [facility] Work Phone: Neutrophils (Bld) [#/Vol] 3.0 10*3/uL 2.0-7.7 [facility] Work Phone: Neutrophils/100 WBC (Bld) 61.2 % 47-70 [facility] Work Phone: Potassium [Moles/Vol] 3.7 mmol/L 3.5-5.1 [facility] Work Phone: Protein [Mass/Vol] 6.7 g/dL 6.4-8.2 [facility] Work Phone: Sodium [Moles/Vol] 141 mmol/L 136-145 [facility] Work Phone: WBC (Bld) [#/Vol] 4.9 10*3/uL 4.4-11.0 [facility] Work Phone: Blood erythrocytes count (nu mber/volume)on 12-28-2021 RBC (Bld) [#/Vol] 4.05 10*6/uL 4.2-5.4 [facility] Work Phone: [phone] Blood hemoglobin measurement (mass/volume)on 12-28-2021 Hemoglobin (Bld) [Mass/Vol] 12.7 g/dL 12.0-15.0 [facility] Work Phone: [phone] Blood lymphocytes/100 leukoc yteson 12-28-2021 Lymphocytes/100 WBC (Bld) 21.9 % 19-41 [facility] Work Phone: [phone] Blood monocytes/100 leukocyt eson 12-28-2021 Monocytes/100 WBC (Bld) 10.2 % 0-10 [facility] Work Phone: Blood platelet mean volumeon 12-28-2021 Platelet mean volume (Bld) [Entitic vol] 9.7 fL 6.2-12.0 [facility] Work Phone: Determination of erythrocyte mean corpuscular volume (MCV)on 12-28-2021 MCV (RBC) [Entitic vol] 93.8 fL 81-99 [facility] Work Phone: Hematocrit Auto (Bld) [Volum e fraction]on 12-28-2021 Hematocrit (Bld) [Volume fraction] 38.0 % 37-47 [facility] Work Phone: Laboratory - Chemistry and C hemistry - challengeon 12-28-2021 ALP [Catalytic activity/Vol] 107 U/L 45-117 [facility] Work Phone: [phone] ALT [Catalytic activity/Vol] 33 U/L 13-56 [facility] Work Phone: CO2 [Moles/Vol] 27.0 mmol/L 21.0-32.0 [facility] Work Phone: [phone] Globulin (S) [Mass/Vol] 3.5 g/dL 2.2-4.2 [facility] Work Phone: Urea nitrogen/Creatinine [Mass ratio] 17.5 mg/mg 10-20 [facility] Work Phone: Laboratory - Hematology and Cell countson 12-28-2021 Erythrocyte distribution width (RBC) [Entitic vol] 42.8 fL 35.1-43.9 [facility] Work Phone: [phone] Erythrocyte distribution width (RBC) [Ratio] 12.4 % 11.6-14.6 [facility] Work Phone: Immature granulocytes/100 WBC (Bld) 0.200 % 0.0-0.9 [facility] Work Phone: Comment on above: IG% - Immature Granu locytes (promyelocytes, myelocytes and metamyelocytes) > 1% indicates that a LEFT SHIFT is Present. MCH (RBC) [Entitic mass] 31.4 pg 27.0-32.0 [facility] Work Phone: Nucleated RBC/100 WBC (Bld) [Ratio] 0 % 0-5 [facility] Work Phone: MCHC Auto (RBC) [Mass/Vol]on 12-28-2021 MCHC (RBC) [Mass/Vol] 33.4 g/dL 32-36 [facility] Work Phone: No Panel Informationon 12-28 Estimated GFR (MDRD) Amer 124 mL/min >60 [facility] Work Phone: Comment on above: GFR Calc Estimated GFR (MDRD) Non-Af Amer 103 mL/min >60 [facility] Work Phone: Comment on above: Non- GFR Calc Platelets bldon 12-28-2021 Platelets (Bld) [#/Vol] 292 10*3/uL 150-450 [facility] Work Phone: Serum or plasma albumin jac urement (mass/volume)on 12-28-2021 Albumin [Mass/Vol] 3.2 g/dL 3.2-5.0 [facility] Work Phone: Serum or plasma albumin/glob ulin mass ratioon 12-28-2021 Albumin/Globulin [Mass ratio] 0.9 {ratio} 0.9-2.4 [facility] Work Phone: Serum or plasma calcium jac urement (mass/volume)on 12-28-2021 Calcium [Mass/Vol] 9.1 mg/dL 8.5-10.1 [facility] Work Phone: Serum or plasma creatinine m easurement (mass/volume)on 12-28-2021 Creatinine [Mass/Vol] 0.63 mg/dL 0.55-1.02 [facility] Work Phone: Comment on above: The validity of the calculated GFR & GFRAA in patients over 70 years has not been determined. Clinical correlation is essential. Serum or plasma urea nitroge n measurement (mass/volume)on 12-28-2021 Urea nitrogen [Mass/Vol] 11 mg/dL 7-18 [facility] Work Phone: Thin prep Papanicolaou smear with manual screeningon 12-28-2021 Thin prep Papanicolaou smear with manual screening 35 U/L 15-37 [facility] Work Phone: Thin prep Papanicolaou smear with manual screening 9 5-15 [facility] Work Phone: Absolute lymphocyte counton 10-26-2021 Lymphocytes Auto (Unsp spec) [#/Vol] 1.40 10*3/uL 0.83-4.51 [facility] Work Phone: Basophil percentageon 2021 Basophils/100 WBC (Bld) 0.6 % 0-1 [facility] Work Phone: Bilirubin [Mass/Vol] 0.30 mg/dL 0.20-1.00 [facility] Work Phone: Comment on above: For patients on eltr ombopag therapy, use of Dimension [place] TBIL is not recommended. Chloride [Moles/Vol] 105 mmol/L 98-107 [facility] Work Phone: Eosinophils/100 WBC (Bld) 4.2 % 0-5 [facility] Work Phone: [phone] Glucose [Mass/Vol] 97 mg/dL 74-106 [facility] Work Phone: Neutrophils (Bld) [#/Vol] 4.4 10*3/uL 2.0-7.7 [facility] Work Phone: [phone] Neutrophils/100 WBC (Bld) 66.4 % 47-70 [facility] Work Phone: Potassium [Moles/Vol] 3.9 mmol/L 3.5-5.1 [facility] Work Phone: [phone] Protein [Mass/Vol] 6.6 g/dL 6.4-8.2 [facility] Work Phone: Sodium [Moles/Vol] 140 mmol/L 136-145 [facility] Work Phone: WBC (Bld) [#/Vol] 6.7 10*3/uL 4.4-11.0 [facility] Work Phone: [phone] Blood erythrocytes count (nu mber/volume)on 10-26-2021 RBC (Bld) [#/Vol] 4.10 10*6/uL 4.2-5.4 [facility]: [phone] Blood hemoglobin measurement (mass/volume)on 10-26-2021 Hemoglobin (Bld) [Mass/Vol] 12.7 g/dL 12.0-15.0 [facility] Work Phone: Blood lymphocytes/100 leukoc yteson 10-26-2021 Lymphocytes/100 WBC (Bld) 21.0 % 19-41 [facility] Work Phone: Blood monocytes/100 leukocyt eson 10-26-2021 Monocytes/100 WBC (Bld) 7.5 % 0-10 [facility] Work Phone: [phone] Blood platelet mean volumeon 10-26-2021 Platelet mean volume (Bld) [Entitic vol] 9.9 fL 6.2-12.0 [facility] Work Phone: Determination of erythrocyte mean corpuscular volume (MCV)on 10-26-2021 MCV (RBC) [Entitic vol] 92.2 fL 81-99 [facility] Work Phone: Hematocrit Auto (Bld) [Volum e fraction]on 10-26-2021 Hematocrit (Bld) [Volume fraction] 37.8 % 37-47 [facility] Work Phone: Laboratory - Chemistry and C hemistry - challengeon 10-26-2021 ALP [Catalytic activity/Vol] 100 U/L 45-117 [facility] Work Phone: ALT [Catalytic activity/Vol] 35 U/L 13-56 [facility] Work Phone: CO2 [Moles/Vol] 31.0 mmol/L 21.0-32.0 [facility] Work Phone: Globulin (S) [Mass/Vol] 3.4 g/dL 2.2-4.2 [facility] Work Phone: Urea nitrogen/Creatinine [Mass ratio] 20.4 mg/mg 10-20 [facility] Work Phone: Laboratory - Hematology and Cell countson 10-26-2021 Erythrocyte distribution width (RBC) [Entitic vol] 40.9 fL 35.1-43.9 [facility] Work Phone: Erythrocyte distribution width (RBC) [Ratio] 12.1 % 11.6-14.6 [facility] Work Phone: Immature granulocytes/100 WBC (Bld) 0.300 % 0.0-0.9 [facility] Work Phone: Comment on above: IG% - Immature Granu locytes (promyelocytes, myelocytes and metamyelocytes) > 1% indicates that a LEFT SHIFT is Present. MCH (RBC) [Entitic mass] 31.0 pg 27.0-32.0 [facility] Work Phone: Nucleated RBC/100 WBC (Bld) [Ratio] 0 % 0-5 [facility] Work Phone: MCHC Auto (RBC) [Mass/Vol]on 10-26-2021 MCHC (RBC) [Mass/Vol] 33.6 g/dL 32-36 [facility] Work Phone: No Panel Informationon 10-26 Estimated GFR (MDRD) Amer 112 mL/min >60 [facility] Work Phone: Comment on above: GFR Calc Estimated GFR (MDRD) Non-Af Amer 93 mL/min >60 [facility] Work Phone: Comment on above: Non- GFR Calc Platelets bldon 10-26-2021 Platelets (Bld) [#/Vol] 288 10*3/uL 150-450 [facility] Work Phone: Serum or plasma albumin jac urement (mass/volume)on 10-26-2021 Albumin [Mass/Vol] 3.2 g/dL 3.2-5.0 [facility] Work Phone: Serum or plasma albumin/glob ulin mass ratioon 10-26-2021 Albumin/Globulin [Mass ratio] 0.9 {ratio} 0.9-2.4 [facility] Work Phone: Serum or plasma calcium jac urement (mass/volume)on 10-26-2021 Calcium [Mass/Vol] 9.1 mg/dL 8.5-10.1 [facility] Work Phone: Serum or plasma creatinine m easurement (mass/volume)on 10-26-2021 Creatinine [Mass/Vol] 0.68 mg/dL 0.55-1.02 [facility] Work Phone: Comment on above: The validity of the calculated GFR & GFRAA in patients over 70 years has not been determined. Clinical correlation is essential. Serum or plasma urea nitroge n measurement (mass/volume)on 10-26-2021 Urea nitrogen [Mass/Vol] 14 mg/dL 7-18 [facility] Work Phone: Thin prep Papanicolaou smear with manual screeningon 10-26-2021 Thin prep Papanicolaou smear with manual screening 36 U/L 15-37 [facility] Work Phone: Thin prep Papanicolaou smear with manual screening 4 5-15 [facility] Work Phone: Absolute lymphocyte counton 08-19-2021 Lymphocytes Auto (Unsp spec) [#/Vol] 1.42 10*3/uL 0.83-4.51 [facility] Work Phone: Basophil percentageon 2021 Basophils/100 WBC (Bld) 0.7 % 0-1 [facility] Work Phone: Bilirubin [Mass/Vol] 0.30 mg/dL 0.20-1.00 [facility] Work Phone: Comment on above: For patients on eltr ombopag therapy, use of Dimension [place] TBIL is not recommended. Chloride [Moles/Vol] 106 mmol/L 98-107 [facility] Work Phone: Eosinophils/100 WBC (Bld) 5.4 % 0-5 [facility] Work Phone: Glucose [Mass/Vol] 91 mg/dL 74-106 [facility] Work Phone: Neutrophils (Bld) [#/Vol] 3.2 10*3/uL 2.0-7.7 [facility] Work Phone: [phone] Neutrophils/100 WBC (Bld) 59.7 % 47-70 [facility] Work Phone: Potassium [Moles/Vol] 3.8 mmol/L 3.5-5.1 [facility] Work Phone: Protein [Mass/Vol] 6.7 g/dL 6.4-8.2 [facility] Work Phone: Sodium [Moles/Vol] 141 mmol/L 136-145 [facility] Work Phone: WBC (Bld) [#/Vol] 5.4 10*3/uL 4.4-11.0 [facility] Work Phone: Blood erythrocytes count (nu mber/volume)on 08-19-2021 RBC (Bld) [#/Vol] 4.20 10*6/uL 4.2-5.4 [facility] Work Phone: Blood hemoglobin measurement (mass/volume)on 08-19-2021 Hemoglobin (Bld) [Mass/Vol] 12.9 g/dL 12.0-15.0 [facility] Work Phone: Blood lymphocytes/100 leukoc yteson 08-19-2021 Lymphocytes/100 WBC (Bld) 26.4 % 19-41 [facility] Work Phone: Blood monocytes/100 leukocyt eson 08-19-2021 Monocytes/100 WBC (Bld) 7.6 % 0-10 [facility] Work Phone: Blood platelet mean volumeon 08-19-2021 Platelet mean volume (Bld) [Entitic vol] 9.9 fL 6.2-12.0 [facility] Work Phone: Determination of erythrocyte mean corpuscular volume (MCV)on 08-19-2021 MCV (RBC) [Entitic vol] 92.1 fL 81-99 [facility] Work Phone: Hematocrit Auto (Bld) [Volum e fraction]on 08-19-2021 Hematocrit (Bld) [Volume fraction] 38.7 % 37-47 [facility] Work Phone: Laboratory - Chemistry and C hemistry - challengeon 08-19-2021 ALP [Catalytic activity/Vol] 101 U/L 45-117 [facility] Work Phone: ALT [Catalytic activity/Vol] 28 U/L 13-56 [facility] Work Phone: CO2 [Moles/Vol] 33.0 mmol/L 21.0-32.0 [facility] Work Phone: Globulin (S) [Mass/Vol] 3.4 g/dL 2.2-4.2 [facility] Work Phone: Urea nitrogen/Creatinine [Mass ratio] 16.3 mg/mg 10-20 [facility] Work Phone: Laboratory - Hematology and Cell countson 08-19-2021 Erythrocyte distribution width (RBC) [Entitic vol] 40.6 fL 35.1-43.9 [facility] Work Phone: Erythrocyte distribution width (RBC) [Ratio] 12.0 % 11.6-14.6 [facility] Work Phone: Immature granulocytes/100 WBC (Bld) 0.200 % 0.0-0.9 [facility] Work Phone: Comment on above: IG% - Immature Granu locytes (promyelocytes, myelocytes and metamyelocytes) > 1% indicates that a LEFT SHIFT is Present. MCH (RBC) [Entitic mass] 30.7 pg 27.0-32.0 [facility] Work Phone: Nucleated RBC/100 WBC (Bld) [Ratio] 0 % 0-5 [facility] Work Phone: MCHC Auto (RBC) [Mass/Vol]on 08-19-2021 MCHC (RBC) [Mass/Vol] 33.3 g/dL 32-36 [facility] Work Phone: No Panel Informationon 08-19 Estimated GFR (MDRD) Amer 80 mL/min >60 [facility] Work Phone: Comment on above: GFR Calc Estimated GFR (MDRD) Non-Af Amer 66 mL/min >60 [facility] Work Phone: Comment on above: Non- GFR Calc Platelets bldon 08-19-2021 Platelets (Bld) [#/Vol] 280 10*3/uL 150-450 [facility] Work Phone: Serum or plasma albumin jac urement (mass/volume)on 08-19-2021 Albumin [Mass/Vol] 3.3 g/dL 3.2-5.0 [facility] Work Phone: Serum or plasma albumin/glob ulin mass ratioon 08-19-2021 Albumin/Globulin [Mass ratio] 1.0 {ratio} 0.9-2.4 [facility] Work Phone: Serum or plasma calcium jac urement (mass/volume)on 08-19-2021 Calcium [Mass/Vol] 9.2 mg/dL 8.5-10.1 [facility] Work Phone: Serum or plasma creatinine m easurement (mass/volume)on 08-19-2021 Creatinine [Mass/Vol] 0.92 mg/dL 0.55-1.02 [facility] Work Phone: Comment on above: The validity of the calculated GFR & GFRAA in patients over 70 years has not been determined. Clinical correlation is essential. Serum or plasma urea nitroge n measurement (mass/volume)on 08-19-2021 Urea nitrogen [Mass/Vol] 15 mg/dL 7-18 [facility] Work Phone: Thin prep Papanicolaou smear with manual screeningon 08-19-2021 Thin prep Papanicolaou smear with manual screening 36 U/L 15-37 [facility] Work Phone: Thin prep Papanicolaou smear with manual screening 2 5-15 [facility] Work Phone: Basophil percentageon 2021 Chloride [Moles/Vol] 105 mmol/L 98-107 [facility] Work Phone: Glucose [Mass/Vol] 116 mg/dL 74-106 [facility] Work Phone: Comment on above: Fasting Glucose resu lt from 100 to 125 mg/dL suggests IMPAIRED HOMEOSTASIS per A.D.A. criteria. Potassium [Moles/Vol] 3.9 mmol/L 3.5-5.1 [facility] Work Phone: Sodium [Moles/Vol] 141 mmol/L 136-145 [facility] Work Phone: WBC (Bld) [#/Vol] 6.1 10*3/uL 4.4-11.0 [facility] Work Phone: Blood erythrocytes count (nu mber/volume)on 08-13-2021 RBC (Bld) [#/Vol] 4.34 10*6/uL 4.2-5.4 [facility] Work Phone: Blood hemoglobin measurement (mass/volume)on 08-13-2021 Hemoglobin (Bld) [Mass/Vol] 13.3 g/dL 12.0-15.0 [facility] Work Phone: Blood platelet mean volumeon 08-13-2021 Platelet mean volume (Bld) [Entitic vol] 10.2 fL 6.2-12.0 [facility] Work Phone: Determination of erythrocyte mean corpuscular volume (MCV)on 08-13-2021 MCV (RBC) [Entitic vol] 92.9 fL 81-99 [facility] Work Phone: Hematocrit Auto (Bld) [Volum e fraction]on 08-13-2021 Hematocrit (Bld) [Volume fraction] 40.3 % 37-47 [facility] Work Phone: Laboratory - Chemistry and C hemistry - challengeon 08-13-2021 CO2 [Moles/Vol] 32.0 mmol/L 21.0-32.0 [facility] Work Phone: Urea nitrogen/Creatinine [Mass ratio] 20.5 mg/mg 10-20 [facility] Work Phone: Laboratory - Hematology and Cell countson 08-13-2021 Erythrocyte distribution width (RBC) [Entitic vol] 41.4 fL 35.1-43.9 [facility] Work Phone: Erythrocyte distribution width (RBC) [Ratio] 12.0 % 11.6-14.6 [facility] Work Phone: MCH (RBC) [Entitic mass] 30.6 pg 27.0-32.0 [facility] Work Phone: MCHC Auto (RBC) [Mass/Vol]on 08-13-2021 MCHC (RBC) [Mass/Vol] 33.0 g/dL 32-36 [facility] Work Phone: No Panel Informationon 08-13 D-Dimer Quantitative (PE/DVT) 0.59 FEU/ug/m 0.27-0.49 [facility] Work Phone: Comment on above: D-Dimer ELEVATED (>0 .49): Additional studies and clinicalassessments are indicated to conclude diagnosis of:Deep Vein Thrombosis (DVT) or Pulmonary Embolism (PE) Estimated GFR (MDRD) Amer 104 mL/min >60 [facility] Work Phone: Comment on above: GFR Calc Estimated GFR (MDRD) Non-Af Amer 86 mL/min >60 [facility] Work Phone: Comment on above: Non- GFR Calc Platelets bldon 08-13-2021 Platelets (Bld) [#/Vol] 287 10*3/uL 150-450 [facility] Work Phone: Serum or plasma calcium jac urement (mass/volume)on 08-13-2021 Calcium [Mass/Vol] 8.9 mg/dL 8.5-10.1 [facility] Work Phone: Serum or plasma creatinine m easurement (mass/volume)on 08-13-2021 Creatinine [Mass/Vol] 0.73 mg/dL 0.55-1.02 [facility] Work Phone: Comment on above: The validity of the calculated GFR & GFRAA in patients over 70 years has not been determined. Clinical correlation is essential. Serum or plasma urea nitroge n measurement (mass/volume)on 08-13-2021 Urea nitrogen [Mass/Vol] 15 mg/dL 7-18 [facility] Work Phone: Thin prep Papanicolaou smear with manual screeningon 08-13-2021 Thin prep Papanicolaou smear with manual screening 4 5-15 [facility] Work Phone: Laboratory - Microbiology an d Antimicrobial susceptibilityon 05-27-2021 SARS-CoV-2 (COVID-19) RNA SAMANTHA+probe Ql (Unsp spec) Not detected Not Detect [facility] [employer] Work Phone: Comment on above: Normal Reference Ran ge: Not DetectedMethod:(RT-PCR) real-time reverse transcriptase PCRLuminex LEELA Instrument*The Food and Drug Administration (FDA) has issued an Emergency Use Authorization (EAU) for the LEELA SARS-CoV-2 Assay for the rapid detection of the virus that causes COVID-19. This test has been validated, but the FDAs independent review of this validation is pending.*Negative results do not preclude infection and should not be used as the sole basis for treatment or patient management. Optimum specimen types and timing for peak viral levels during infections caused by SARS-CoV-2 have not been determined. Collection of multiple specimens from the same patient may be necessary to detect the virus. The possibility of a false negative result should be considered if the patient has clinical presentation or has had recent exposure. Office Visiton 01-27-2017 Documentation of current medications (procedure) Done Invalid Interpretation Code [employer] Work Phone: [phone] Fall risk assessment No Invalid Interpretation Code [employer] Work Phone: [phone] Protein mass conc Done Invalid Interpretation Code [employer] Work Phone: [phone] Lab Report: Lipid Profileon 01-20-2017 Cholesterol 144 mg/dL Invalid Interpretation Code 200 [employer] Work Phone: [phone] HDL Cholesterol 84 mg/dL Invalid Interpretation Code [employer] Work Phone: [phone] LDL Cholesterol 50 mg/dL Invalid Interpretation Code 0-130 [employer] Work Phone: [phone] Triglyceride 50 mg/dL Invalid Interpretation Code [employer] Work Phone: [phone] low density lipoproteins 10 mg/dL Invalid Interpretation Code 5-40 [employer] Work Phone: [phone] Lab Report: Liver Profileon 01-20-2017 Alanine aminotransferase (ALT) 25 U/L Invalid Interpretation Code 12-78 [employer] Work Phone: [phone] Albumin 3.5 g/dL Invalid Interpretation Code 3.4-5.0 [employer] Work Phone: [phone] Alkaline phosphatase (ALP) 91 U/L Invalid Interpretation Code 45-117 [facility] Work Phone: [phone] ALP enzyme act/vol (Bld) 91 U/L Invalid Interpretation Code 45-117 [facility] Work Phone: [phone] Aspartate aminotransferase (AST) 26 U/L Invalid Interpretation Code 15-37 [facility] Work Phone: [phone] Bilirubin (direct) 0.16 mg/dL Invalid Interpretation Code 0.00-0.30 [facility] Work Phone: [phone] Bilirubin (total) 0.50 mg/dL Invalid Interpretation Code 0.20-1.00 [facility] Work Phone: [phone] Globulin 3.2 g/dL Invalid Interpretation Code 2.3-3.5 [facility] Work Phone: [phone] Globulin mass conc (S) 3.2 g/dL 2.3-3.5 [facility] Work Phone: [phone] Protein 6.7 g/dL Invalid Interpretation Code 6.4-8.2 [facility] Work Phone: [phone] Office Visiton 07-05-2016 Dietary management education, guidance, and counseling (procedure) yes Invalid Interpretation Code [facility] Work Phone: [phone] Documentation of current medications (procedure) Done Invalid Interpretation Code [facility] Phone: [phone] 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 Left ventricular Ejection fraction 65 % Invalid Interpretation Code [facility] Work Phone: [phone] Office Visit: postop surgery //16on 12-29-2015 Tobacco smoking status NHIS Never Invalid Interpretation Code [facility] Work Phone: [phone] Tobacco smoking status NHIS Never smoker Invalid Interpretation Code [facility] Work Phone: [phone] Tobacco use CPHS Never smoker Invalid Interpretation Code [facility] Work Phone: [phone] Office Visit: eval soft tiss ue mass left medial foreheadon 10-06-2015 Alcoholism counseling (procedure) no Invalid Interpretation Code [facility] Work Phone: [phone] Protein mass conc no Invalid Interpretation Code [facility] Work Phone: [phone] Office Visiton 05-27-2015 cardiac risk group B Invalid Interpretation Code [facility] Work Phone: [phone] General cardiovascular disease 10Y risk [#] Juvencio'Kyrie 3 % Invalid Interpretation Code [facility] Work Phone: [phone] Lab Report: Liver Profileon 05-07-2014 ALK P 91 U/L Invalid Interpretation Code 50-136 [facility] Work Phone: [phone] GE use only - for [employer] import when terms are not otherwise specified 91 U/L Invalid Interpretation Code 50-136 [facility] Work Phone: [phone] Lab Report: CBCDon 4 Absolute Neutrophil count 3.1 X10 3/UL Normal 2.0-7.7 [facility] Work Phone: ANC 3.1 X10 3/UL Normal 2.0-7.7 [facility] Work Phone: Basophils/100 leukocytes 0.7 % Normal 0-1 [facility] Work Phone: Basophils/100 WBC (Bld) 0.7 % Normal 0-1 [facility] Work Phone: Eosinophils/100 leukocytes 11.4 % High 0-5 [facility] Work Phone: Eosinophils/100 WBC (Bld) 11.4 % High 0-5 [facility] Work Phone: Erythrocytes (RBC) 4.39 10*6/uL Normal 4.2-5.[address] [facility] Work Phone: Hematocrit (HCT) 39.9 % Normal 37-47 [facility] Work Phone: Hematocrit Volume Fraction (Bld) 39.9 % Normal 37-47 [facility] Work Phone: Hemoglobin (HGB) 13.4 g/dL Normal 12.0-15.0 [facility] Work Phone: Lymphocytes/100 leukocytes 24.2 % Normal 19-41 [facility] Work Phone: Lymphocytes/100 WBC (Bld) 24.2 % Normal 19-41 [facility] Work Phone: MCH 30.5 pg Normal 27.0-32.0 [facility] Work Phone: MCH Entitic mass (RBC) 30.5 pg Normal 27.0-32.0 [facility] Work Phone: MCHC 33.6 G/GL Normal 32-36 [facility] Work Phone: MCHC mass conc (RBC) 33.6 G/GL Normal 32-[address] [facility] Work Phone: MCV 90.9 fL Normal 81-99 [facility] Work Phone: MCV Entitic volume (RBC) 90.9 fL Normal 81-99 [facility] Work Phone: Monocytes/100 leukocytes 7.2 % Normal 0-10 [facility] Work Phone: Monocytes/100 WBC (Bld) 7.2 % Normal 0-10 [facility] Work Phone: Neutrophils/100 leukocytes 56.1 % Normal 47-70 [facility] Work Phone: Neutrophils/100 WBC (Bld) 56.1 % Normal 47-70 [facility] Work Phone: Platelet mean volume Entitic volume (Bld) 9.9 fL Normal 6.2-12.0 [facility] Work Phone: Platelets 256 10*3/mm3 Normal 150-450 [facility] Work Phone: Platelets #/vol (Bld) 256 10*3/mm3 Normal 150-450 [facility] Work Phone: PMV by Tierney 9.9 fL Normal 6.2-12.0 [facility] Work Phone: RBC #/vol (Bld) 4.39 10*6/uL Normal 4.2-5.4 [facility] Work Phone: [phone] WBC #/vol (Bld) 5.6 10*3/uL Normal 4.4-11.0 [facility] Work Phone: [phone] WBC (Leukocytes) 5.6 10*3/uL Normal 4.4-11.0 [facility] Work Phone: [phone] Lab Report: [facility] 03-11-2014 Albumin/Globulin Ratio 1 {ratio} Normal 0.9-2.4 [facility] Work Phone: [phone] Anion gap 5 mmol/L Normal 5-15 [facility] Work Phone: [phone] Anion gap 4 molar conc 5 Normal 5-15 [facility] Work Phone: [phone] Anion gap molar conc 5 mmol/L Normal 5-[address] [facility] Work Phone: [phone] BUN/Creatinine Ratio 20.0 RATIO Normal 10-[address] [facility] Work Phone: [phone] Calcium 8.8 mg/dL Normal 8.5-10.1 [facility] Work Phone: [phone] Chloride 105 mmol/L Normal 98-107 [facility] Work Phone: [phone] CO2 30.0 mmol/L Normal 21.0-32.0 [facility] Work Phone: [phone] CO2 ppres (BldV) 30.0 mmol/L Normal 21.0-32.0 [facility] Work Phone: [phone] Creatinine 0.7 mg/dL Normal 0.6-1.0 [facility] Work Phone: [phone] eGFR (non-black) 93 mL/min/{1.73_m2} Normal >60 [facility] Work Phone: [phone] eGFR (non-black) 113 mL/min/{1.73_m2} Normal >60 [facility] Work Phone: [phone] GFRAA 113 mL/min Normal >60 [facility] Work Phone: [phone] Glucose 100 mg/dL Normal 70-110 [facility] Work Phone: Glucose mass conc 100 mg/dL Normal 70-110 [facility] Work Phone: [phone] Potassium 3.7 mmol/L Normal 3.5-5.1 [facility] Work Phone: Sodium 140 mmol/L Normal 136-145 [facility] Work Phone: [phone] Urea nitrogen 14 mg/dL Normal 7-18 [facility] Work Phone: [phone] Document: Tony Garner 02-15-2014 EKG QRS axis 25 deg Invalid Interpretation Code [facility] Work Phone: [phone] electrocardiogram interpretation Sinus Rhythm WITHIN NORMAL LIMITS Invalid Interpretation Code [facility] Work Phone: [phone] Interpretation Sinus Rhythm WITHIN NORMAL LIMITS Invalid Interpretation Code [employer] [facility] Work Phone: [phone] P [place] 34 deg Invalid Interpretation Code [facility] Work Phone: [phone] P wave axis, electrocardiogram 34 deg Invalid Interpretation Code [facility] Work Phone: [phone] [place] Interval 122 ms Invalid Interpretation Code [facility] Work Phone: [phone] [place] interval, electrocardiogram 122 ms Invalid Interpretation Code [facility] Work Phone: [phone] Pulse (Heart Rate) 89 /min Invalid Interpretation Code [facility] Work Phone: Pulse (Heart Rate) 422 ms Invalid Interpretation Code [facility] Work Phone: QRS axis, electrocardiogram 25 deg Invalid Interpretation Code [facility] Work Phone: [phone] QRS Duration 100 ms Invalid Interpretation Code [facility] Work Phone: QRS duration, electrocardiogram 100 ms Invalid Interpretation Code [facility] Work Phone: [phone] QT Interval new path ms Invalid Interpretation Code [facility] Work Phone: [phone] QT interval, electrocardiogram new path ms Invalid Interpretation Code [facility] Work Phone: [phone] T [place] -1 deg Invalid Interpretation Code [facility] Work Phone: [phone] T wave axis, electrocardiogram -1 deg Invalid Interpretation Code [facility] Work Phone: [phone] 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 Brett Leon MD Work Phone: [facility] 06-28-2024 09:05-0500 Body mass index (BMI) [Ratio] 34.9 kg/m2 Dr. Brett Leon MD Work Phone: [facility] 06-28-2024 09:05-0500 Body temperature 97.4 [degF] Dr. Brett Leon MD Work Phone: [facility] 06-28-2024 09:05-0500 Body weight 95.[address] Brett Leon MD Work Phone: [facility] 06-28-2024 09:05-0500 Diastolic blood pressure 80 mm[Hg] Dr. Brett Leon MD Work Phone: [facility] 06-28-2024 09:05-0500 Heart rate 79 /min Dr. Brett Leon MD Work Phone: [facility] 06-28-2024 09:05-0500 Respiratory rate 16 /min Dr. Brett Leon MD Work Phone: [facility] 06-28-2024 09:05-0500 SaO2% (BldA) [Mass fraction] 98 % Dr. Brett Leon MD Work Phone: [facility] 06-28-2024 09:05-0500 Systolic blood pressure 121 mm[Hg] Dr. Brett Leon MD Work Phone: [facility] 05-28-2024 15:25-0500 Body height 164.5 cm Franci Metcalf MD Work Phone: [facility] 05-28-2024 15:25-0500 Body mass index (BMI) [Ratio] 34.55 kg/m2 Franci Metcalf MD Work Phone: [facility] 05-28-2024 15:25-0500 Body weight 93.44 kg Franci Metcalf MD Work Phone: [facility] 05-28-2024 15:25-0500 Diastolic blood pressure 70 mm[Hg] Franci Metcalf MD Work Phone: [facility] 05-28-2024 15:25-0500 Systolic blood pressure 122 mm[Hg] Franci Metcalf MD Work Phone: [facility] 09-07-2023 09:59-0400 Diastolic blood pressure 82 mm[Hg] Dr. Brett Leon Work Phone: [facility] 09-07-2023 09:59-0400 Systolic blood pressure 140 mm[Hg] Dr. Brett Leon Work Phone: [facility] 09-07-2023 09:29-0400 Body height 165.[address] Brett Leon Work Phone: [facility] 09-07-2023 09:29-0400 Body mass index (BMI) [Ratio] 32.9 kg/m2 Dr. Brett Leon Work Phone: [facility] 09-07-2023 09:29-0400 Body weight 89.[address] Brett Leon Work Phone: [facility] 09-07-2023 09:29-0400 Heart rate 79 /min Dr. Brett Leon Work Phone: [facility] 09-07-2023 09:29-0400 Respiratory rate 18 /min Dr. Brett Leon Work Phone: [facility] 09-07-2023 09:29-0400 SaO2% (BldA) [Mass fraction] 100 % Dr. Brett Leon Work Phone: [facility] 05-07-2023 07:00-0500 Body temperature 97.8 [degF] Dr. Brett Leon Work Phone: [facility] 05-07-2023 07:00-0500 Diastolic blood pressure 78 mm[Hg] Dr. Brett Leon Work Phone: [facility] 05-07-2023 07:00-0500 Heart rate 64 /min Dr. Brett Leon Work Phone: [facility] 05-07-2023 07:00-0500 Respiratory rate 14 /min Dr. Brett Leon Work Phone: [facility] 05-07-2023 07:00-0500 SaO2% (BldA) [Mass fraction] 98 % Dr. Brett Leon Work Phone: [facility] 05-07-2023 07:00-0500 Systolic blood pressure 132 mm[Hg] Dr. Brett Leon Work Phone: [facility] 05-07-2023 02:33-0500 Body height 165.[address] Brett Leon Work Phone: [facility] 05-07-2023 02:33-0500 Body mass index (BMI) [Ratio] 35 kg/m2 Dr. Brett Leon Work Phone: [facility] 05-07-2023 02:33-0500 Body weight 95.[address] Brett Leon Work Phone: [facility] 04-13-2023 14:25-0500 Body height 165.1 cm Franci Metcalf MD Work Phone: [facility] 04-13-2023 14:25-0500 Body weight 91.17 kg Franci Metcalf MD Work Phone: [facility] 04-13-2023 14:25-0500 Diastolic blood pressure 74 mm[Hg] Franci Metcalf MD Work Phone: [facility] 04-13-2023 14:25-0500 Systolic blood pressure 122 mm[Hg] Franci Metcalf MD Work Phone: [facility] 02-14-2023 13:35-0400 Body mass index (BMI) [Ratio] 33.4 kg/m2 Dr. Brett Leon Work Phone: [facility] 02-14-2023 13:35-0400 Body weight 91.[address] Brett Leon Work Phone: [facility] 02-14-2023 13:35-0400 Diastolic blood pressure 85 mm[Hg] Dr. Brett Leon Work Phone: [facility] 02-14-2023 13:35-0400 Heart rate 80 /min Dr. Brett Leon Work Phone: [facility] 02-14-2023 13:35-0400 Respiratory rate 18 /min Dr. Brett Leon Work Phone: [facility] 02-14-2023 13:35-0400 SaO2% (BldA) [Mass fraction] 97 % Dr. Brett Leon Work Phone: [facility] 02-14-2023 13:35-0400 Systolic blood pressure 134 mm[Hg] Dr. Brett Leon Work Phone: [facility] 04-01-2022 09:06-0500 Body height 165.1 cm Franci Metcalf MD Work Phone: [facility] 04-01-2022 09:06-0500 Body weight 87.09 kg Franci Metcalf MD Work Phone: [facility] 04-01-2022 09:06-0500 Diastolic blood pressure 76 mm[Hg] Franci Metcalf MD Work Phone: [facility] 04-01-2022 09:06-0500 Systolic blood pressure 122 mm[Hg] Franci Metcalf MD Work Phone: [facility] 03-08-2022 08:10-0400 Body height 167.6 cm Diane Niwot PA-C Work Phone: [facility] 03-08-2022 08:10-0400 Body temperature 96.91 [degF] Diane Niwot PA-C Work Phone: [facility] 03-08-2022 08:10-0400 Body weight 87.36 kg Diane Niwot PA-C Work Phone: [facility] 03-08-2022 08:10-0400 Diastolic blood pressure 70 mm[Hg] Diane Niwot PA-C Work Phone: [facility] 03-08-2022 08:10-0400 Heart rate 77 /min Diane Edgardo PA-C Work Phone: [facility] 03-08-2022 08:10-0400 SaO2% (BldA) [Mass fraction] 100 % Diane Edgardo PA-C Work Phone: [facility] 03-08-2022 08:10-0400 Systolic blood pressure 114 mm[Hg] Diane Edgardo PA-C Work Phone: [facility] 01-21-2022 15:14-0400 Body height 165.[address] Brett Leon Work Phone: [facility] Work Phone: 01-21-2022 15:14-0400 Body mass index (BMI) [Ratio] 31.9 kg/m2 Dr. Brett Leon Work Phone: [facility] Work Phone: 01-21-2022 15:14-0400 Body weight 87.[address] Brett Leon Work Phone: [facility] Work Phone: 01-21-2022 15:14-0400 Diastolic blood pressure 73 mm[Hg] Dr. Brett Leon Work Phone: [facility] Work Phone: 01-21-2022 15:14-0400 Heart rate 78 /min Dr. Brett Leon Work Phone: [facility] Work Phone: 01-21-2022 15:14-0400 Respiratory rate 16 /min Dr. Brett Leon Work Phone: [facility] Work Phone: 01-21-2022 15:14-0400 Systolic blood pressure 126 mm[Hg] Dr. Brett Leon Work Phone: [facility] Work Phone: 01-27-2017 11:59-0400 BMI (Body Mass Index) 26.62 [...] Phone: 01-27-2017 11:59-0400 Weight 72.58 kg [facility] Work Phone: 07-05-2016 08:43-0500 BMI (Body Mass Index) 29.62 kg/m2 [facility] Work Phone: 07-05-2016 08:43-0500 BP Diastolic 70 mm[Hg] Titi Craig NP [facility] Work Phone: 07-05-2016 08:43-0500 BP Systolic 128 mm[Hg] Titi Roof RAMP SERVICE AGENT [facility] Work Phone: 07-05-2016 08:43-0500 BSA (Body Surface Area) 1.88 m2 Titi Craig NP [facility] Work Phone: 07-05-2016 08:43-0500 Height 165.1 cm Titi Craig NP [facility] Work Phone: 07-05-2016 08:43-0500 Pulse (Heart Rate) 78 /min Titi Craig NP [facility] Work Phone: 07-05-2016 08:43-0500 Respiratory Rate 18 /min Titi Craig NP [facility] Work Phone: 07-05-2016 08:43-0500 Weight 80.74 kg Titi Craig NP [facility] Work Phone: 12-29-2015 14:49-0400 Body Temperature 98.6 [degF] Titi Craig NP [facility] Work Phone: 02-15-2014 13:51-0400 Heart rate 89 /min Solange Gee RN [facility] Work Phone: 02-15-2014 13:51-0400 Heart rate 422 ms Solange Gee RN [facility] Work Phone: Encounters Encounter Date Encounter Type Care Provider Facility Start: 10-12-2024 ambulatory [facility] Facility:[facility] Start: 09-11-2024 End: 09-11-2024 ambulatory [facility] Facility:[facility] Start: 07-27-2024 End: 07-27-[address] Brett Leon MD Work Phone: [facility] Work Phone: Start: 07-27-2024 End: 07-27-[address] Sonia Schmidt MD -Laboratory, [place] Work Phone: Start: 07-27-2024 End: 07-27-2024 ambulatory Sonia Schmidt Facility:[facility] Start: 06-28-2024 End: 06-28-[address] Brock Martinez MD -[facility] [place] Work Phone: Start: 06-28-2024 End: 06-28-2024 ambulatory Brett Arielle Leon Facility:[facility] Start: 05-31-2024 Non-patient / Non-visit Susan Flores justina -[facility] Work Phone: Start: 05-31-2024 End: 05-31-2024 ambulatory Integrity [facility] Work Phone: OB/Gynecology Start: 05-31-2024 End: 05-31-2024 Patient encounter procedure [facility]/Gynecology Start: 05-28-2024 End: 05-28-2024 Patient encounter procedure Franci Metcalf MD Work Phone: OB/Gynecology Comment on above: Encounter for gyneco logical examination (general) (routine) without abnormal findings (Primary Dx); Encounter for screening for human papillomavirus (HPV); Pap smear for cervical cancer screening; Encounter for screening mammogram for breast cancer; Pelvic pain in female Start: 05-28-2024 End: 05-28-2024 Patient encounter status Franci Metcalf MD Work Phone: [facility] Start: 05-28-2024 End: 05-28-2024 ambulatory FRANCI METCALF Facility:[facility] Start: 05-28-2024 End: 05-28-2024 Subsequent hospital visit by physician Screen Mammo [facility] Mammogram Comment on above: Encounter for screen ing mammogram for malignant neoplasm of breast [Z12.31] Start: 05-25-2024 End: 05-25-[address] Sonia Schmidt MD -Laboratory, [place] Work Phone: Start: 05-25-2024 End: 05-25-2024 ambulatory Sonia Schmidt Facility:[facility] Start: 04-27-2024 End: 05-08-2024 Telephone encounter Franci Metcalf MD Work Phone: OB/Gynecology Comment on above: Orders Start: 04-03-2024 ambulatory Lashawn Dahl [employer]AMP SERVICE AGENT Facili ty:[facility] Start: 04-03-2024 End: 04-03-2024 ambulatory Lashawn Dahl RAMP SERVICE AGENT Facility:[facility] Start: 03-15-2024 ambulatory Lashawn Dahl RAMP SERVICE AGENT Facili ty:[facility] Start: 03-13-2024 End: 03-13-2024 ambulatory Lashawn Dahl RAMP SERVICE AGENT Facility:[facility] Start: 03-08-2024 End: 03-08-2024 ambulatory Lashawn Dahl RAMP SERVICE AGENT Facility:[facility] Start: 02-24-2024 End: 02-24-2024 ambulatory [facility] Facility:[facility] Start: 12-08-2023 ambulatory Lashawn Dahl RAMP SERVICE AGENT Facili ty:[facility] Start: 12-08-2023 End: 12-08-2023 ambulatory Lashawn Dahl RAMP SERVICE AGENT Facility:[facility] Start: 12-06-2023 End: 12-06-2023 ambulatory [facility] Facility:[facility] Start: 09-07-2023 Non-patient / Non-visit Dr. Cristina Leon Work Phone: [facility] Start: 09-07-2023 End: 09-07-[address] Brett Leon Work Phone: [facility] Work Phone: Start: 09-07-2023 End: 09-07-[address] Brett Leon Work Phone: [facility] Work Phone: Start: 09-07-2023 End: 09-07-[address] Brett Leon Work Phone: [facility] Work Phone: Start: 09-06-2023 End: 09-06-[address] Brett Leon Work Phone: [facility] Work Phone: Start: 09-06-2023 End: 09-06-[address] Brett Leon Work Phone: [facility] Work Phone: Start: 06-13-2023 End: 06-13-2023 ambulatory [facility] Work Phone: Start: 06-13-2023 End: 06-13-[address] [facility] Start: 05-30-2023 End: 05-30-[address] Brett Leon Work Phone: [facility] Work Phone: Start: 05-30-2023 End: 05-30-[address] Brett Leon Work Phone: [facility], [facility] Work Phone: Start: 05-17-2023 End: 05-17-[address] Brett Leon Work Phone: [facility] Work Phone: Start: 05-17-2023 End: 05-17-[address] Brett Leon Work Phone: [facility] Work Phone: Start: 05-07-2023 End: 05-07-2023 Emergency department patient visit Dr. Brett Leon Work Phone: [facility]Emergency Department Work Phone: Start: 04-14-2023 Documentation procedure Mammog elijah Coordinator [facility] Start: 04-14-2023 Letter encounter Mammography Coordinator [facility] Department Start: 04-13-2023 End: 04-13-2023 Patient encounter procedure Franci Metcalf MD Work Phone: OB/Gynecology Comment on above: Encounter for gyneco logical examination (general) (routine) without abnormal findings (Primary Dx); Encounter for screening mammogram for breast cancer Start: 04-13-2023 End: 04-13-2023 Patient encounter status Franci Metcalf MD Work Phone: [facility] Start: 04-13-2023 End: 04-13-2023 Subsequent hospital visit by physician Screen Mammo [facility] Wstr Mammogram Comment on above: Encounter for screen ing mammogram for breast cancer [Z12.31] Start: 02-15-2023 End: 02-15-[address] Brett Leon Work Phone: [facility] Work Phone: Start: 02-14-2023 End: 02-14-[address] Brett Leon Work Phone: [facility] Work Phone: Start: 11-29-2022 End: 11-29-2022 ambulatory [facility] Work Phone: Start: 11-29-2022 End: 11-29-2022 Patient encounter procedure [facility] Work Phone: Start: 11-10-2022 End: 11-10-2022 ambulatory [facility] Work Phone: Start: 11-10-2022 End: 11-10-2022 Patient encounter procedure [facility] Work Phone: Start: 11-08-2022 End: 11-08-2022 ambulatory [facility] Work Phone: Start: 11-08-2022 End: 11-08-2022 Patient encounter procedure [facility]-Radiology, [facility] Work Phone: Start: 09-13-2022 End: 09-13-2022 ambulatory [facility] Work Phone: Start: 09-13-2022 End: 09-13-2022 Patient encounter procedure [facility] Start: 07-22-2022 Telephone encounter Joelle Torres MD Work Phone: General Surgery Comment on above: Results Start: 06-10-2022 End: 06-10-2022 ambulatory [facility] Work Phone: Start: 06-10-2022 End: 06-10-2022 Patient encounter procedure [facility] Start: 04-01-2022 Documentation procedure Mammog elijah Coordinator [facility] Start: 04-01-2022 Letter encounter Mammography Coordinator [facility] Department Start: 04-01-2022 End: 04-01-2022 Patient [...] Subsequent hospital visit by physician Screen Mammo [facility] Mammogram Comment on above: Encounter for gyneco logical examination (general) (routine) without abnormal findings [Z01.419] Start: 03-25-2022 ambulatory PAMELLA TRUJILLO Facility:[facility] Start: 03-11-2022 End: 03-11-[address] Brett Leon Work Phone: [facility] Work Phone: Start: 03-11-2022 End: 03-11-[address] Brett Leon Work Phone: [facility]-Occupational Therapy Start: 03-11-[address] Brett babcock Work Phone: [facility]ational [facility] Start: 03-08-2022 End: 03-08-[address] Brett Leon Work Phone: [facility] Work Phone: Start: 03-08-2022 End: 03-08-2022 Patient encounter procedure Diane Reynoso PA-C Work Phone: General Surgery Comment on above: Encounter for screen ing for malignant neoplasm of colon (Primary Dx); Family history of colon cancer; Tortuous colon Start: 02-18-2022 Telephone encounter Joelle Torres MD Work Phone: General Surgery Comment on above: 03/25 COLON LODI Start: 01-21-2022 End: 01-21-[address] Brett Leon Work Phone: [facility] Start: 12-30-2021 Registered Recurring [facility]-Occupational Therapy Start: 12-28-2021 End: 12-28-[address] [facility] Start: 10-26-2021 End: 10-26-2021 [facility] Start: 10-13-2021 End: 10-13-2021 [facility] Start: 08-19-2021 End: 08-19-2021 [facility] encounter [facility] Start: 08-13-2021 End: 08-13-2021 Patient encounter procedure [facility]-Cat Scan, [facility] Start: 08-13-2021 End: 08-13-2021 [facility] Start: 05-27-2021 End: 05-27-[address] [facility] Date Procedure Procedure Detail Performing Clinician Start: 05-31-2024 Us pelvic nonobstetr ic real-time image complete Franci Metcalf MD Work Phone: Start: 05-28-2024 Urnls dip stick/tabl et rgnt auto w/o microscopy Franci Metcalf MD Work Phone: Start: 05-30-[address] Brett Leon Work Phone: Start: 05-07-2023 CT angiography of ch est with contrast Dr. Brett Leon Work Phone: Start: 05-07-2023 Plain chest X-ray Dr. Preston Leon Work Phone: Start: 11-08-2022 Plain chest X-ray Start: 04-01-2022 End: 04-01-2022 Mammography Franci Metcalf MD Work Phone: Start: 10-13-2021 Plain x-ray of hand Start: 08-13-2021 CT angiography of ch est with contrast Start: 08-13-2021 Plain chest X-ray Start: 03-30-2021 Mammography Diane cerda PA-C Work [...] Follow Up Appt Jacky Edwards MD Start: 12-29-2015 End: 01-01-2016 Follow [...] Author Start: 03-30-2026 HPV TESTING HPV TESTING [facility] Start: 03-30-2026 PAP TESTING PAP TESTING [facility] Start: 05-29-2025 End: 05-29-2025 Patient encounter procedure Mammogram Comment on above: Encounter for gyneco logical examination (general) (routine) without abnormal findings [Z01.419]; Encounter for screening mammogram for breast cancer [Z12.31] annual Start: 05-28-2025 BP Controlled (<130/80) BP Controlle d (<130/80) [facility] Start: 05-28-2025 Screening for malign ant neoplasm of breast Mammogram Screening [facility] Start: 02-25-2025 Urine microalbumin profile [facility] Start: 05-31-2024 End: 05-31-2024 Manual pelvic examination 05/31/2024 2:00 PM EST Procedure OB/Gynecology [address] [place] [id number] Remote, [facility] [address] [place] [id number] Pelvic pain in female [R10.2] OB/Gynecology Comment on above: Pelvic pain in femal e [R10.2] Start: 05-28-2024 End: 05-28-2024 Patient encounter procedure Mammogram Comment on above: Encounter for screen ing mammogram for malignant neoplasm of breast [Z12.31] annual Start: 05-28-2024 End: 05-28-2025 US Pelvis PELVIC US [facility] Routine Pelvic pain in female Expected: 05/28/2024, Expires: 05/28/2025 [facility] Comment on above: Expected: 05/28/2024 , Expires: 05/28/2025 Start: 04-13-2024 BP Controlled (<130/80) BP Controlle d (<130/80) [facility] Start: 04-13-2024 Mammography Mammogram Screening [facility] Start: 04-13-2024 Screening for malign ant neoplasm of breast Mammogram Screening [facility] Start: 03-27-2024 Covid-19 Vaccine ( season) Covid-19 Vaccine () [facility] Start: 01-15-2024 Covid-19 Vaccine ( season) Covid-19 Vaccine ( season) [facility] Start: 01-15-2024 Influenza vaccination Influenza Vacc ine (#1) [facility] Start: 05-13-2023 Covid-19 Vaccine ( season) Covid-19 Vaccine ( season) [facility] Start: 05-07-2023 [facility] Start: 04-01-2023 BP CONTROLLED (<130/80) BP CONTROLLE D (<130/80) [facility] Start: 04-01-2023 Mammography [facility] Start: 03-08-2023 BP CONTROLLED (<130/80) BP CONTROLLE D (<130/80) [facility] Start: 01-14-2023 Covid-19 Vaccine ( season) Covid-19 Vaccine () [facility] Start: 01-14-2023 Influenza vaccination Influenza Vacc ine (#1) [facility] Start: 05-16-2022 DEPRESSION ASSESSMENT DEPRESSION ASS ESSMENT [facility] Start: 03-31-2022 Colonoscopy COLONOSCOPY [facility] Start: 03-31-2022 COLORECTAL CANCER SCREENING COLORECTAL CANCER SCREENING [facility] Start: 03-31-2022 Screening for malign ant neoplasm of colon [facility] Start: 03-30-2022 Mammography MAMMOGRAM [facility] Start: 03-30-2022 Screening for malign ant neoplasm of cervix Cervical Cancer Screening [facility] Start: 01-20-2022 LIPID SCREEN LIPID SCREEN [facility] Start: 01-14-2022 Influenza vaccination INFLUENZA (#1) [facility] Start: 01-03-2022 Lipid 1996 panel - S serenity or Plasma Lipid Screening [facility] Start: 01-03-2022 Lipid panel Lipid Scre[facility] Start: 12-27-2021 COVID-19 VACCINE (5 - Booster for Moderna series) COVID-19 VACCINE (5 - Booster for Moderna series) [facility] Start: 05-16-2021 DEPRESSION ASSESSMENT DEPRESSION ASS ESSMENT [facility] Start: 08-04-2017 End: 08-04-2017 Appointment Appointment [facility] Work Phone: Start: 07-20-2017 End: 01-24-2017 *Hepatic Function Panel *Hepatic Function Panel [facility] Work Phone: Start: 07-20-2017 End: 01-24-2017 Lipid 1996 panel *Lipid Profile CC PCP [facility] Work Phone: Start: 07-20-2017 End: 01-24-2017 *Hepatic Function Panel *Hepatic Function Panel [facility] Work Phone: Start: 07-20-2017 End: 01-24-2017 Lipid panel [AGGREGATE] *Lipid Profile CC PCP [facility] Work Phone: Start: 01-27-2017 End: 01-27-2017 DJN DJN [facility] Work Phone: Start: 01-27-2017 End: 01-27-2017 Follow Up Appt 6 months Follow Up Appt 6 months [facility] Work Phone: Start: 01-27-2017 End: 01-27-2017 Neurology Referral Neurology Referral Radha Varghese MD, [address], [place], [address] [facility] Phone: Start: 01-27-2017 End: 01-27-2017 Stress Echocardiogram (treadmill) Stress Echocardiogram (treadmill) [facility] Work Phone: Start: 01-27-2017 End: 01-27-2017 Appointment Appointment [facility] Phone: Start: 01-27-2017 End: 01-27-2017 TRIPP ALMAGUER [facility] Work Phone: Start: 01-27-2017 End: 01-27-2017 Follow Up Appt 6 months Follow Up Appt 6 months [facility] Phone: Start: 01-27-2017 End: 01-27-2017 Neurology Referral Neurology Referral Radha Varghese MD, [address], [place], [address] [facility] Phone: Start: 01-27-2017 End: 01-27-2017 Stress Echocardiogram (treadmill) Stress Echocardiogram (treadmill) [facility] Phone: Start: 01-03-2017 End: 01-20-2017 *Hepatic Function Panel *Hepatic Function Panel [facility] Work Phone: Start: 01-03-2017 End: 01-20-2017 Lipid 1996 panel *Lipid Profile CC PCP [facility] Work Phone: Start: 01-03-2017 End: 01-20-2017 *Hepatic Function Panel *Hepatic Function Panel [facility] Work Phone: Start: 01-03-2017 End: 01-20-2017 Lipid panel [AGGREGATE] *Lipid Profile CC PCP [facility] Work Phone: Start: 09-23-2016 LIPID SCREEN LIPID SCREEN [facility] Start: 07-05-2016 End: 07-05-2016 TRIPP ALMAGUER [facility] Work Phone: Start: 07-05-2016 End: 07-05-2016 Follow Up Appt 6 months Follow Up Appt 6 months [facility] Work Phone: Start: 07-05-2016 End: 07-05-2016 TRIPP ALMAGUER [facility] Work Phone: Start: 07-05-2016 [...] 07-01-2016 *Hepatic Function Panel *Hepatic Function Panel [facility] Work Phone: Start: 06-11-2016 End: 07-01-2016 Lipid panel [AGGREGATE] *Lipid Profile CC PCP [facility] Work Phone: Start: 12-29-2015 End: 01-01-2016 Follow Up Appt Other Follow Up Appt Other [facility] Work Phone: Start: 12-29-2015 End: 12-29-2015 Primary Care Physician Primary Care Physician Brett Leon, [facility], [address] [place] [address] [address], [place], [address] [facility] Work Phone: Start: 12-29-2015 End: 01-01-2016 Follow Up Appt Other Follow Up Appt Other [facility] Work Phone: Start: 12-29-2015 End: 12-29-2015 Primary Care Physician Primary Care Physician Brett Leon [facility], [address] [place] [address] [address], [place], [address] [facility] Work Phone: Start: 12-16-2015 End: 12-16-2015 DJN DJN [facility] Work Phone: Start: 12-16-2015 End: 12-16-2015 Follow Up Appt 6 months Follow Up Appt 6 months [facility] Work Phone: Start: 12-16-2015 End: 12-16-2015 TRIPP ALMAGUER [facility] Work Phone: Start: 12-16-2015 End: 12-16-2015 Follow Up Appt 6 months Follow Up Appt 6 months [facility] Work Phone: Start: 11-28-2015 End: 12-08-2015 *Hepatic Function Panel *Hepatic Function Panel [facility] Work Phone: Start: 11-28-2015 End: 12-08-2015 Lipid 1996 panel *Lipid Profile CC PCP [facility] Work Phone: Start: 11-28-2015 End: 12-08-2015 *Hepatic Function Panel *Hepatic Function Panel [facility] Work Phone: Start: 11-28-2015 End: 12-08-2015 Lipid panel [AGGREGATE] *Lipid Profile CC PCP [facility] Work Phone: Start: 05-28-2015 End: 05-30-2015 *Hepatic Function Panel *Hepatic Function Panel [facility] Work Phone: Start: 05-28-2015 End: 05-30-2015 Lipid 1996 panel *Lipid Profile CC PCP [facility] Work Phone: Start: 05-28-2015 End: 05-30-2015 *Hepatic Function Panel *Hepatic Function Panel [facility] Work Phone: Start: 05-28-2015 End: 05-30-2015 Lipid panel [AGGREGATE] *Lipid Profile CC PCP [facility] Work Phone: Start: 05-27-2015 End: 12-16-2015 Complete sleep workup (PSG,CPAP as indicated) & Follow up Complete sleep workup (PSG,CPAP as indicated) & Follow up [facility] Work Phone: Start: 05-27-2015 End: 05-27-2015 TRIPP DANAYKarla [facility] Work Phone: Start: 05-27-2015 End: 05-27-2015 Follow Up Appt 6 months Follow Up Appt 6 months [facility] Work Phone: Start: 05-27-2015 End: 12-16-2015 Complete sleep workup (PSG,CPAP as indicated) & Follow up Complete sleep workup (PSG,CPAP as indicated) & Follow up [facility] Work Phone: Start: 05-27-2015 End: 05-27-2015 RTIPP DANAYN [facility] Work Phone: Start: 05-27-2015 End: 05-27-2015 Follow Up Appt 6 months Follow Up Appt 6 months [facility] Work Phone: Start: 11-11-2014 End: 11-25-2014 *Hepatic Function Panel *Hepatic Function Panel [facility] Work Phone: Start: 11-11-2014 End: 11-25-2014 Lipid 1996 panel *Lipid Profile CC PCP [facility] Work Phone: Start: 11-11-2014 End: 11-25-2014 *Hepatic Function Panel *Hepatic Function Panel [facility] Work Phone: Start: 11-11-2014 End: 11-25-2014 Lipid panel [AGGREGATE] *Lipid Profile CC PCP [facility] Work Phone: Start: 09-23-2014 DIABETES SCREEN DIABETES SCREEN [facility] Start: 09-23-2014 Diabetes Screening Diabetes Screenin g [facility] Start: 05-06-2014 End: 05-13-2014 *Hepatic Function Panel *Hepatic Function Panel [facility] Work Phone: Start: 05-06-2014 End: 05-13-2014 Lipid 1996 panel *Lipid Profile CC PCP [facility] Work Phone: Start: 05-06-2014 End: 05-13-2014 *Hepatic Function Panel *Hepatic Function Panel [facility] Work Phone: Start: 05-06-2014 End: 05-13-2014 Lipid panel [AGGREGATE] *Lipid Profile CC PCP [facility] Work Phone: Start: 03-04-2014 End: 03-22-2014 *BMP *BMP [facility] Work Phone: Start: 03-04-2014 End: 03-22-2014 CBC W Auto Differential panel - Blood *CBC without Diff [facility] Work Phone: Start: 03-04-2014 End: 03-22-2014 Chest x-ray X-Ray, Chest, PA & Lateral [facility] Work Phone: Start: 03-04-2014 End: 03-22-2014 *BMP *BMP [facility] Work Phone: Start: 03-04-2014 End: 03-22-2014 CBC W Auto Differential panel - Blood *CBC without Diff [facility] Work Phone: Start: 03-04-2014 End: 03-22-2014 Chest x-ray X-Ray, Chest, PA & Lateral [facility] Work Phone: Start: 02-15-2014 End: 03-22-2014 TRIPP JONN [facility] Work Phone: Start: 02-15-2014 End: 02-15-2014 Echocardiography Echocardiogram (complete) [facility] Work Phone: Start: 02-15-2014 End: 03-22-2014 Follow Up Appt 1 year Follow Up Appt 1 year [facility] Work Phone: Start: 02-15-2014 End: 02-15-2014 Left Heart Cath Left Heart Cath [facility] Work Phone: Start: 02-15-2014 End: 03-22-2014 DJN DJN [facility] Work Phone: Start: 02-15-2014 End: 02-15-2014 Echocardiography Echocardiogram (complete) [facility] Work Phone: Start: 02-15-2014 End: 03-22-2014 Follow Up Appt 1 year Follow Up Appt 1 year [facility] Work Phone: Start: 02-15-2014 End: 02-15-2014 Left Heart Cath Left Heart Cath [facility] Work Phone: Start: 2006 COLOGUARD (FIT-DNA) COLOGUARD (FIT-D NA) [facility] Start: [address] COLONOGRAPHY [facility] Start: 2006 FECAL OCCULT BLOOD FECAL OCCULT BLOO D [facility] Start: 2006 Screening for malign ant neoplasm of colon [facility] Start: 2006 SIGMOIDOSCOPY SIGMOIDOSCOPY [facility] Start: 01-30-1980 Pneumococcal Vaccine : 50+ (1 of 2 - PCV) Pneumococcal Vaccine: 50+ (1 of 2 - PCV) [facility] Start: 01-30-1980 SHINGRIX VACCINE (1 of 2) MEREDITH GRIX VACCINE (1 of 2) [facility] Start: 1979 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 VISIT ANNUAL PCP TEAM CHRONIC DISEASE VISIT [facility] Start: 1979 Anxiety Screening Anxiety Screening [facility] Start: 1979 BP Controlled (<130/80) BP Controlle d (<130/80) [facility] Start: 1979 Depression Screening Depression Scre ening [facility] Start: 1979 HEPATITIS C SCREENING HEPATITIS C [facility] Start: 1979 Hepatitis C screening Hepatitis C [facility] Start: 1979 HIV SCREENING HIV SCREENING [facility] Start: 1979 HIV screening HIV Screening [facility] Start: 1967 PNEUMOCOCCAL (1 - PCV) PNEUMOCOCCAL (1 - PCV) [facility] Start: 1967 Pneumococcal vaccination Pneum ococcal Vaccine (1 - PCV) [facility] Bacteria identified in Urine by Culture BACTERIAL CULTURE, URINE Microbiology Routine Pelvic pain in female 05/28/2024 4:35 PM EST [facility] End: 05-27-2025 DBT Breast - bilateral screening [facility] Routine Encounter for screening mammogram for malignant neoplasm of breast 1 Occurrences starting 04/30/2024 until 05/27/2025 [facility] Work Phone: Comment on above: 1 Occurrences starti ng 04/30/2024 until 05/27/2025 End: 06-27-2025 DBT Breast - bilateral screening [facility] Routine Encounter for gynecological examination (general) (routine) without abnormal findings Encounter for screening mammogram for breast cancer 1 Occurrences starting 05/28/2024 until 06/27/2025 [facility] Work Phone: Comment on above: 1 Occurrences starti ng 05/28/2024 until 06/27/2025 DBT Breast - bilater al screening [facility] Routine Encounter for screening mammogram for malignant neoplasm of breast 05/28/2024 3:08 PM EST [facility] Work Phone: End: 05-12-2024 ROSIE SCREENING [facility] Routine Encounter for gynecological examination (general) (routine) without abnormal findings Encounter for screening mammogram for breast cancer 1 Occurrences starting 04/13/2023 until 05/12/2024 [facility] Work Phone: Comment on above: 1 Occurrences starti ng 04/13/2023 until 05/12/2024 End: 05-01-2023 [facility]IE SCREENING [facility]CRE[facility] Routine Encounter for screening mammogram for breast cancer 1 Occurrences starting 04/01/2022 until 05/01/2023 [facility] Work Phone: Comment on above: 1 Occurrences starti ng 04/01/2022 until 05/01/2023 [facility] SCREENING [facility] ROS[facility] SCREENI NG [facility] Routine Encounter for screening mammogram for breast cancer 04/13/2023 2:12 PM EST [facility] Work Phone: PAP TEST PAP TEST Lab Rou chrissie Encounter for gynecological examination (general) (routine) without abnormal findings Encounter for screening for human papillomavirus (HPV) Pap smear for cervical cancer screening Ordered: 05/28/2024 [facility] Comment on above: Ordered: 05/28/2024 [facility] Work Phone: Patient referral [facility] Work Phone: End: 03-08-2023 Screening colonoscopy COLONOSCOPY SCREENING Endoscopy Routine Family history of colon cancer 1 Occurrences starting 03/08/2022 until 03/08/2023 [facility] Work Phone: Comment on above: 1 Occurrences starti ng 03/08/2022 until 03/08/2023 US.doppler Lower ext remity vein [facility] Immunizations Immunization Date Immunization Notes Care Provider Fa cility 03-18-2023 influenza, injectabl e, quadrivalent, preservative free Franci Metcalf MD Work Phone: [facility] Work Phone: 03-18-2023 respiratory syncytia l virus (RSV) vaccine, bivalent (ABRYSVO) Franci Metcalf MD Work Phone: [facility] Work Phone: 03-18-2023 influenza virus vaccine, unspecified formulation Franci Metcalf MD Work Phone: [facility] 05-11-2021 zoster vaccine recombinant Franci Metcalf MD Work Phone: [facility] Work Phone: 11-11-2020 zoster vaccine recombinant Franci Metcalf MD Work Phone: [facility] Work Phone: 09-13-2020 COVID-19 original vaccine, full dose, monovalent (MODERNA) Franci Metcalf MD Work Phone: [facility] Work Phone: 02-03-2020 influenza, injectabl e, quadrivalent, preservative free Diane Edgardo PA-C Work Phone: [facility] Work Phone: 02-03-2020 influenza virus vaccine, unspecified formulation Screen Wstr [facility] 02-25-2019 influenza, injectabl e, quadrivalent, preservative free Diane Niwot PA-C Work Phone: [facility] Work Phone: 02-23-2018 influenza, injectabl e, quadrivalent, preservative free Diane Edgardo PA-C Work Phone: [facility] Work Phone: 02-01-2017 influenza, seasonal, injectable Diane Reynoso PA-C Work Phone: [facility] Work Phone: 02-25-2015 tetanus toxoid, redu rell diphtheria toxoid, and acellular pertussis vaccine, adsorbed Dianeirais Reynoso PA-C Work Phone: [facility] Work Phone: 2014 influenza, seasonal, injectable Diane Reynoso PA-C Work Phone: [facility] Work Phone: 02-08-2012 influenza, seasonal, injectable Diane Reynoso PA-C Work Phone: [facility] Work Phone: Payers Date Payer Category Payer Self-pay [id number] 2023 Private Health Insurance [id number] Johnston ETNA POS [id number] 2023-Present [phone] [address] [place] [address] POS [id number] 2023 Private Health Insurance [id number] 2020 Unknown [id number] 2016 Unknown [id number] Unknown [id number] Unknown [id number] Unknown [facility] PACK[facility] [id number] Unknown [id number] Unknown [id number] .462 Unknown [id number] .462 Unknown [id number] .462 Unknown [id number] .462 Unknown [id number] .462 Unknown [id number] .462 Unknown [id number] .462 Unknown [id number] .462 Unknown [id number] .462 Unknown [id number] [id number] .462 Unknown [id number] [id number] .462 Unknown [id number] [id number] .462 Unknown [id number] .462 Unknown [id number] .462 Unknown [id number] .462 Unknown [id number] .462 Social History Date Type Detail Facility Start: 04-03-2021 End: 05-07-2023 Tobacco smoking status NHIS Unknown if ever smoked [facility] Start: 1960 Sex Assigned At Female [facility] Start: 04-01-2022 End: 05-07-2023 Tobacco smoking status NHIS Never smoked tobacco [facility] Start: 03-08-2022 End: 05-28-2024 Alcohol intake Current drinker of alcohol (finding) [facility] Start: 09-16-2011 Alcohol Comment ocas glass of wine [facility] Start: 1960 Sex Assigned At Not on file [facility] Start: 02-26-2022 End: 04-01-2022 Exposure to SARS-CoV-2 (event) Not sure [facility] Start: 04-01-2022 Tobacco use and exposure Smokeless tobacco non-user [facility] Start: 04-01-2022 End: 04-13-2023 History of Social function [facility] Start: 04-01-2022 End: 04-13-2023 Tobacco use panel [facility] National Score (1-100), lower number is lower risk Not on file [facility] Start: 08-07-2024 Sex Female (finding) [facility] Mental Status Date Assessment Result Facility 05-07-2023 Cognitive function Voice/Name [facility] Work Phone: Clinical Notes 07-12-2006 to 06-28-2024 Note Date & Type Note Facility 06-28-2024 Evaluation note Diagnosis Onset Date Resolution History of DVT (deep vein thrombosis) chronic June 28, 2024 8:55am [facility] Work Phone: [phone] NoteHNO ID: [id number] Author: LAUREL BARKER MD Service: ? Author Type: Physician Type: Progress Notes Filed: 05/31/2024 22:49 Note Text: The patient presents for requested ultrasound. Full report available in the Imaging tab in [facility]. Laurel Barker [facility]01-16-2025 History of Present illness Narrative* Laurel Barker MD - 05/31/2024 10:33 PM EST The patient presents for requested ultrasound. Full report available in the Imaging tab in Epic. Laurel Barker MD [facility] Note* Addendum Note - Franci Metcalf MD - 05/28/2024 4:31 PM ESTAddended by: FRANCI METCALF on: 05/28/2024 04:31 PM Modules accepted: Orders [facility]01-13-2025 Miscellaneous Notes* Addendum Note - Franci Metcalf MD - 05/28/2024 4:31 PM ESTAddended by: FRANCI METCALF on: 05/28/2024 04:31 PM Modules accepted: Orders * Addendum Note - Shannon Boland MA - 05/28/2024 4:27 PM ESTAddended by: SHANNON BOLAND on: 05/28/2024 04:27 PM Modules accepted: Orders documented in this encounterGrand [facility]-13-[facility] Note* Addendum Note - Shannon Boland MA - 05/28/2024 4:27 PM ESTAddended by: SHANNON BOLAND on: 05/28/2024 04:27 PM Modules accepted: Orders [facility]01-13-2025 NoteHNO ID: [id number] Author: FRANCI METCALF MD Service: ? Author Type: Physician Type: Progress Notes Filed: 05/28/2024 16:02 Note Text: Serafin is a 64 year old who presents for an annual gynecologic exam with complaints, right flank pain last 3 days, has had in the past. No dysuria or gross hematuria. . No fever, no h/o kidney stones. Took ibuprofen once this weekend. better w/ certain movements. Doesn't feel like sore muscle, had sore back recently and not the same. no vaginal bleeding Some NIKHIL, not enough to wear pads/liners Postmenopausal: yes HRT use: No. Still get period: No Menopause symptoms: None Time with current partner: 37 years Number of lifetime partners: 1 control frequency: Never HPV vaccine: Unsure; Last pap smear: up to date History of abnormal pap: No, all prior PAP smears have been normal Bothersome pelvic pain: Yes OB History T4 L4 SAB0 IAB0 Ectopic0 Multiple0 Live Births0 Comment: 4 vaginal deliveries Senior Risk Manager History LMP: 09/14/2006, Ablation Age at Menarche: 14 Age at First : Age at Menopause: Senior Risk Manager History Comments: Sexual Activity: Yes; Male; husbands [...] Colon Cancer Father other (triple bypass) Father CA x 2 other (near kidney/liver failure) Father Emphysema Brother Cancer Maternal Grandmother Breast Cancer Colon Cancer Maternal Grandmother Stroke Paternal Grandmother Heart Paternal Grandfather Cancer Maternal Aunt Abdominal Cancer ??etiology SOCIAL HISTORY Social History Tobacco Use Smoking status: Never Smokeless tobacco: Never Vaping Use Vaping status: Never Used Substance Use Topics Alcohol use: Yes Comment: ocas glass of wine Drug use: No REVIEW OF SYSTEMS Abdomen: No abdominal pain, nausea, vomiting, diarrhea, or constipation. No bloating, early satiety, indigestion, or increased flatulence. Bladder: No dysuria, gross hematuria, urinary frequency, urinary urgency, or incontinence Breast: No breast lumps, nipple d/c, overlying skin changes, redness or skin retraction Allergies and current medication updated:Yes SENSITIVE EXAM: The sensitive examination was discussed with the Patient or Patient's Authorized Rotary Helper. As applicable, any other physician, advance practice provider, medical student, or other health professional student that will be observing or involved in the sensitive examination for educational or training purposes was discussed with the Patient or Authorized Rotary Helper. The Patient or Authorized Rotary Helper has agreed to proceed with the sensitive examination. (Sensitive examination includes inspection and/or palpation of the breasts, pelvis, prostate and anorectal regions). EXAM: BP 122/70 Ht 5' 4.75 (1.65m) Wt 206 lb (93.4kg) LMP 09/14/2006 BMI 34.53 kg/(m2). GENERAL: pleasant, female in no apparent [...] external genitalia normal, normal Bartholin's glands, urethra, [place]'s glands, no vulvar lesions, no cervical lesions, physiologic discharge present, normal appearing perineal body and perianal region, cystocele 1st degree, rectocele 1st degree, cervical prolapse 1st degree BIMANUAL: uterus normal size, shape and consistency, no adnexal masses, and non-tender RECTOVAGINAL: rectovaginal exam negative for any masses or nodularity. NEURO: jareth (more content not included)...[facility]01-13-2025 History of Present illness Narrative* Franci Metcalf MD - 05/28/2024 3:20 PM EST Serafin is a 64 year old who presents for an annual gynecologic exam with complaints, right flank pain last 3 days, has had in the past. No dysuria or gross hematuria. . No fever, no h/o kidney stones. Took ibuprofen once this weekend. better w/ certain movements. Doesn't feel like sore muscle, had sore back recently and not the same. no vaginal bleeding Some NIKHIL, not enough to wear pads/liners Postmenopausal: yes HRT use: No. Still get period: No Menopause symptoms: None Time with current partner: 37 years Number of lifetime partners: 1 control frequency: Never HPV vaccine: Unsure; Last pap smear: up to date History of abnormal pap: No, all prior PAP smears have been normal Bothersome pelvic pain: Yes OB History T4 L4 SAB0 IAB0 Ectopic0 Multiple0 Live Births0 Comment: 4 vaginal deliveries Senior Risk Manager History LMP: 09/14/2006, Ablation Age at Menarche: 14 Age at First : Age at Menopause: Senior Risk Manager History Comments: Sexual Activity: Yes; Male; husbands [...] Colon Cancer Father other (triple bypass) Father CA x 2 other (near kidney/liver failure) Father Emphysema Brother Cancer Maternal Grandmother Breast Cancer Colon Cancer Maternal Grandmother Stroke Paternal Grandmother Heart Paternal Grandfather Cancer Maternal Aunt Abdominal Cancer ??etiology SOCIAL HISTORY Social History Tobacco Use Smoking status: Never Smokeless tobacco: Never Vaping Use Vaping status: Never Used Substance Use Topics Alcohol use: Yes Comment: ocas glass of wine Drug use: No REVIEW OF SYSTEMS Abdomen: No abdominal pain, nausea, vomiting, diarrhea, or constipation. No bloating, early satiety, indigestion, or increased flatulence. Bladder: No dysuria, gross hematuria, urinary frequency, urinary urgency, or incontinence Breast: No breast lumps, nipple d/c, overlying skin changes, redness or skin retraction Allergies and current medication updated:Yes SENSITIVE EXAM: The sensitive examination was discussed with the Patient or Patient's Authorized Rotary Helper. As applicable, any other physician, advance practice provider, medical student, or other health professional student that will be observing or involved in the sensitive examination for educational or training purposes was discussed with the Patient or Authorized Rotary Helper. The Patient or Authorized Rotary Helper has agreed to proceed with the sensitive examination. (Sensitive examination includes inspection and/or palpation of the breasts, pelvis, prostate and anorectal regions). EXAM: BP 122/70 Ht 5' 4.75 (1.65m) Wt 206 lb (93.4kg) LMP 09/14/2006 BMI 34.53 kg/(m^2). GENERAL: pleasant, female in no apparent [...] external genitalia normal, normal Bartholin's glands, urethra, [place]'s glands, no vulvar lesions, no cervical lesions, physiologic discharge present, normal appearing perineal body and perianal region, cystocele 1st degree, rectocele 1st degree, cervical prolapse 1st degree BIMANUAL: uterus normal size, shape and consistency, no adnexal masses, and non-tender RECTOVAGINAL: rectovaginal exam negative for any masses or nodularity. NEURO: alert and oriented x3,exam grossly non-focal EXTREMITIES: normal ASSESSMENT/PLAN: 1) Health maintenance: Pap done with HPV. Mammogram ordered check US and UA for right flank d/w her mixed incont. Offered pelvic floor PT or meds, will monitor for now. D/w her symptomatic measures 2) Follow up one year or sooner as needed Franci Metcalf MD documented in this encounterGrand [facility]01-13-2025 History of Present illness Narrative* Asif Nguyen Mammo Tech - 05/28/2024 2:50 PM EST Radiology Service Progress Note PATIENT NAME: Serafin Pruett DATE OF SERVICE: May 28, 2024 TIME: 3:25 PM PATIENT IDENTITY VERIFICATION COMPLETED USING TWO (2) IDENTIFIERS: Name and Date of confirmedby patient verbally. FALL SCREENING: Has the patient had 2 falls in the last year or 1 fall with injury or currently using an Ambulatory Assistive Device (Walker, Cane, Wheelchair, Crutches, etc.)? No PATIENT GENDER DATA: Assigned female at . status: : No status:NO. PATIENT RELEVANT IMPLANT DATA REVIEWED: Not Applicable PATIENT PRESENTS WITH AN IMPLANTABLE OR ATTACHED INTEGRATION TECHNICIAN: No RADIOLOGY DEPARTMENT: Mammography PERIPHERAL IV DATA: Not applicable SIGNED BY: Jaspreet Lizama May 28, 2024 3:25 PM documented in this encounterGrand Lake [facility]01-13-2025 NoteHNO ID: [id number] Author: ASIF NGUYEN Mammo Tech Service: ? Author Type: [place] Type: Progress Notes Filed: 05/28/2024 15:25 Note Text: Radiology Service Progress Note PATIENT NAME: Serafin Pruett DATE OF SERVICE: May 28, 2024 TIME: 3:25 PM PATIENT IDENTITY VERIFICATION COMPLETED USING TWO (2) IDENTIFIERS: Name and Date of confirmed by patient verbally. FALL SCREENING: Has the patient had 2 falls in the last year or 1 fall with injury or currently using an Ambulatory Assistive Device (Walker, Cane, Wheelchair, Crutches, etc.)? No PATIENT GENDER DATA: Assigned female at . status: : No status: NO. PATIENT RELEVANT IMPLANT DATA REVIEWED: Not Applicable PATIENT PRESENTS WITH AN IMPLANTABLE OR ATTACHED INTEGRATION TECHNICIAN: No RADIOLOGY DEPARTMENT: Mammography PERIPHERAL IV DATA: Not applicable SIGNED BY: Jaspreet Lizama May 28, 2024 3:25 [facility]12-13-2024 Telephone encounter Note* Telephone Encounter - Emily Tamayo RN - 04/27/2024 4:53 PM EST Patient needs Mamm with NICOLLE order. Please file and then route to PSS to call patient and assist with scheduling. Emily Tamayo RN [facility]12-13-2024 Miscellaneous Notes* Telephone Encounter - Emily Tamayo RN - 04/27/2024 4:53 PM EST Patient needs Mamm with NICOLLE order. Please file and then route to PSS to call patient and assist with scheduling. Emily Tamayo RN documented in this encounterGrand Lake [facility]11-30-2023 Miscellaneous Notes* Letter - Donovan Dean - 04/14/2023 2:08 PM EST April 15, 2023 PID: [id number] Serafin Pruett [address] [place] [id number] Dear Ms. Pruett, We are pleased to [...] report will be kept on file at [facility] as part of your permanent medical record and are available for your continuing care. Thank you for allowing us to help in meeting your health care needs. Sincerely, Dr. Hdez Interpreting Radiologist [facility] (Normal over 40) documented in this encounterGrand Lake Joint Township [facility]11-29-2023 History of Present illness Narrative* Franci Metcalf MD - 04/13/2023 2:23 PM EST Serafin is a 63 year old who presents for an annual gynecologic exam without complaints. Postmenopausal: yes HRT use: No. Last Pap: 04/07/2021 normal HPV: 04/01/2021 negative History of abnormal pap: No Last mammogram: today pending History of abnormal mammogram: call back but no bx OB History T4 L4 SAB0 IAB0 Ectopic0 Multiple0 Live Births0 Comment: 4 vaginal deliveries Senior Risk Manager History LMP: 09/14/2006, Ablation Age at Menarche: Age at First : Age at Menopause: Senior Risk Manager History Comments: Sexual Activity: Yes; Male; husbands [...] Colon Cancer Father other (triple bypass) Father CA x 2 other (near kidney/liver failure) Father [...] external genitalia normal, normal Bartholin's glands, urethra, [place]'s glands, no vulvar lesions, no cervical lesions, [...] needed Franci Metcalf MD documented in this encounterGrand Lake [facility]11-29-2023 History of Present illness Narrative* Asif Nguyen Mammo Tech - 04/13/2023 1:50 PM EST Radiology Service Progress Note PATIENT NAME: Serafin Pruett DATE OF SERVICE: April 13, 2023 TIME: 1:45 PM PATIENT IDENTITY VERIFICATION COMPLETED USING TWO (2) IDENTIFIERS: Name and Date of confirmedby patient verbally. FALL SCREENING: Has the patient had 2 falls in the last year or 1 fall with injury or currently using an Ambulatory Assistive Device (Walker, Cane, Wheelchair, Crutches, etc.)? No PATIENT GENDER DATA: Female. status: : No status: NO. PATIENT RELEVANT IMPLANT DATA REVIEWED: Yes RADIOLOGY DEPARTMENT: Mammography PERIPHERAL IV DATA: Not applicable SIGNED BY: Enedina Lizamao Yaneth April 13, 2023 1:45 PM documented in this encounterGrand Lake [facility]03-09-2023 Miscellaneous Notes* Telephone Encounter - Celena Persaud RN - 07/22/2022 12:55 PM EST 2017 colonoscopy report faxed to Dr. Brett Leon. Fax confirmation sheet received. Ceelna Persaud RN * Telephone Encounter - Berenice Villagran LPN - 07/22/2022 10:23 AM EST Patient called in requesting Colonoscopy report sent to brett leon office. Berenice Villagran LPN documented in this encounterGrand Lake [facility]11-17-2022 Miscellaneous Notes* Letter - Mammography Coordinator - 04/01/2022 11:14 PM EST April 01, 2022 PID: [id number] Serafin Pruett [address] [place] [address] Dear Ms. Pruett, We are pleased to [...] report will be kept on file at [facility] as part of your permanent medical record and are available for your continuing care. Thank you for allowing us to help in meeting your health care needs. Sincerely, Dr. Dsouza Interpreting Radiologist [facility] (Normal over 40) documented in this encounterGrand Lake Joint Township [facility]11-17-2022 History of Present illness Narrative* Pily Barry Mammo Tech - 04/01/2022 9:50 AM EST Radiology Service Progress Note PATIENT NAME: Serafin Pruett DATE OF SERVICE: April 01, 2022 TIME: 9:55 AM PATIENT IDENTITY VERIFICATION COMPLETED USING TWO (2) IDENTIFIERS: Name and Date of confirmedby patient verbally. FALL SCREENING: Has the patient had 2 falls in the last year or 1 fall with injury or currently using an Ambulatory Assistive Device (Walker, Cane, Wheelchair, Crutches, etc.)? No PATIENT GENDER DATA: Female. status: : No status: NO. PATIENT RELEVANT IMPLANT DATA REVIEWED: Not Applicable RADIOLOGY DEPARTMENT: Mammography PERIPHERAL IV DATA: Not applicable SIGNED BY: Jaspreet Arauz April 01, 2022 9:55 AM documented in this encounterGrand Lake [facility]11-17-2022 History of Present illness Narrative* Franci Metcalf MD - 04/01/2022 9:01 AM EST Serafin is a 62 year old who presents for an annual gynecologic exam without complaints. Postmenopausal: yes HRT use: No. Last Pap: 04/07/2021 normal HPV: 04/01/2021 negative History of abnormal pap: No Last mammogram: 2020 normal History of abnormal mammogram: No Sexually active: Yes OB History T4 L4 SAB0 IAB0 Ectopic0 Multiple0 Live Births0 Comment: 4 vaginal deliveries Senior Risk Manager History LMP: 09/14/2006, Ablation Age at Menarche: Age at First : Age at Menopause: Senior Risk Manager History Comments: Sexual Activity: Yes; Male; husbands [...] Colon Cancer Father other (triple bypass) Father CA x 2 other (near kidney/liver failure) Father [...] external genitalia normal, normal Bartholin's glands, urethra, [place]'s glands, no vulvar lesions, no cervical lesions, [...] needed Franci Metcalf MD documented in this encounterGrand Lake [facility]10-24-2022 Miscellaneous Notes* Telephone Encounter - Nettie Devine - 03/08/2022 9:23 AM EDT 03/25 COLON LODI * Telephone Encounter - Nettie Devine - 02/25/2022 11:21 AM EDT Patient scheduled for colon consult in office with Diane Reynoso 03/08 Nettie Devine Capacity Planning Manager * Telephone Encounter - Tianna Trujillo RN - 02/18/2022 4:12 PM EDT Patient calling to schedule colonoscopy. States she received letter stating she was due. Please contact patient to facilitate. documented in this encounterGrand Lake Joint Township [facility]10-24-2022 History of Present illness Narrative* Diane Reynoso PA-C - 03/08/2022 8:14 AM EDT HISTORY AND PHYSICAL Serafin Pruett 1960 REFERRING [...] colonoscopy 03/31/[address] Casas with findings ofnon-bleeding internal and external hemorrhoids and tortuous colon. [...] Laparoscopy, laser PAST SURGICAL HISTORY OF 11/22/2006 Novannika PAST SURGICAL HISTORY OF 2004 left bunionectomy [...] Colon Cancer Father other (triple bypass) Father CA x 2 other (near kidney/liver failure) Father Emphysema Brother Cancer Maternal Grandmother Breast Cancer Colon Cancer Maternal Grandmother Stroke Paternal Grandmother Heart Paternal Grandfather Cancer Maternal Aunt Abdominal Cancer ??etiology REVIEW OF SYMPTOMS: The review of systems data was entered by the nurse and reviewed by ct Nursing Notes: Mary Deutsch RN 03/08/2022 8:12 [...] pain, NOTES heart disease, NOTES high blood pressure,deniescardiac stent, denies prior heart attack, denies irregular [...] nourished, well hydrated in no acute distress. Thepatient is oriented to time, place, and person. VITALS: Blood pressure 114/70, pulse 77, temperature 36.1 C (96.9 F), height 167.6 cm (5' 6), weight 87.4 kg (192 lb 9.6 oz), last menstrual period 09/14/2006, SpO2 100 %. Body mass index is 31.09 kg/m . HEENT: Normal cephalic, ataumatic, pupils are equally round, sclera are anicteric, mucous membranesare moist, oropharynx is clear. Neck has no [...] Will plan for lower endoscopy. We discussed therisks and benefits of the planned endoscopy with MAC. I have informed the patient that complications can occur including failure to complete the endoscopy and perforation. The patient had the opportunity to ask questions concerning the planned endoscopy. My staff has also explained the procedure tothe patient in understandable terms and has given the patient printed material concerning the procedure. The patient freely consents to surgery. The patient was offered a surgery/procedure at a [facility] facility. I have counseled the patient [...] (Q43.8) Tortuous colon Consultation requested by Dr. Leon for an opinion regarding screening colonoscopy. My final recommendations will be communicated back to the requesting physician by way of shared Medical record orletter to requesting physician via US mail. Diane Reynoso PA-C documented in this encounterGrand Lake Joint [facility]10-24-2022 Nurse Note* Mary Deutsch RN - 03/08/2022 8:08 AM EDT REVIEW OF SYSTEMS: General: The patient denies fatigue, denies weight loss, denies weight gain, denies feeling hot, and denies feelings of cold. Eyes: The patient denies glaucoma, denies eye injury/surgery, wears glasses or contacts. Ear/Nose/Throat: The patient denies allergies, denies hayfever, denies ear infections, and denies bloody noses. 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/22/2012 documented as of this encounter (statuses as of 03/08/2022) [facility] of Past illness Narrative* Problem Noted Date Resolved Date Embolism and thrombosis of unspecified site 06/1709/22/2012 Overview: blood clot in right leg Leiomyoma of uterus, unspecified 06/18/2005 09/22/2012 Irregular menstrual cycle 06/18/20052012 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 09/22/2012 documented as of this encounter (statuses as of 03/31/2022) [facility] History of Past illness Narrative* Problem Noted Date Resolved Date Embolism and thrombosis of unspecified site 06/1709/22/2012 Overview: blood clot in right leg Leiomyoma of uterus, unspecified 06/18/2005 09/22/2012 Irregular menstrual cycle 06/18/20052012 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 09/22/2012 documented as of this encounter (statuses as of 04/01/2022) [facility] of Past illness Narrative* Problem Noted Date Resolved Date Embolism and thrombosis of unspecified site 06/1709/22/2012 Overview: blood clot in right leg Leiomyoma of uterus, unspecified 06/18/2005 09/22/2012 Irregular menstrual cycle 06/18/20052012 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 09/22/2012 documented as of this encounter (statuses as of 04/03/2022) [facility] History of Past illness Narrative* Problem Noted Date Resolved Date Embolism and thrombosis of unspecified site 06/1709/22/2012 Overview: blood clot in right leg Leiomyoma of uterus, unspecified 06/18/2005 09/22/2012 Irregular menstrual cycle 06/18/20052012 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 09/22/2012 documented as of this encounter (statuses as of 07/22/2022) [facility] History of Past illness Narrative* Problem Noted Date Diagnosed Date Resolved Date Embolism and thrombosis of unspecified site 07/12/2006 09/22/2012 Overview: blood clot in right leg Leiomyoma of uterus, unspecified 06/18/2005 09/22/2012 Irregular menstrual cycle 06/18/2005 Iron deficiency anemia secon alesia to blood loss (chronic) 06/18/2005 09/22/2012 documented as of this encounter (statuses as of 03/20/2023) [facility] History of Past illness Narrative* Problem Noted Date Diagnosed Date Resolved Date Embolism and thrombosis of unspecified site 07/12/2006 09/22/2012 Overview: blood clot in right leg Leiomyoma of uterus, unspecified 06/18/2005 09/22/2012 Irregular menstrual cycle 06/18/2005 Iron deficiency anemia secon alesia to blood loss (chronic) 06/18/2005 09/22/2012 documented as of this encounter (statuses as of 04/14/2023) [facility] History of Past illness Narrative* Problem Noted Date Diagnosed Date Resolved Date Embolism and thrombosis of unspecified site 07/12/2006 09/22/2012 Overview: blood clot in right leg Leiomyoma of uterus, unspecified 06/18/2005 09/22/2012 Irregular menstrual cycle 06/18/2005 Iron deficiency anemia secon alesia to blood loss (chronic) 06/18/2005 09/22/2012 documented as of this encounter (statuses as of 04/14/2023) [facility] History of Past illness Narrative* Problem Noted Date Diagnosed Date Resolved Date Embolism and thrombosis of unspecified site 07/12/2006 09/22/2012 Overview: blood clot in right leg Leiomyoma of uterus, unspecified 06/18/2005 09/22/2012 Irregular menstrual cycle 06/18/2005 05 /02/2013 Iron deficiency anemia secon alesia to blood loss (chronic) 06/18/2005 09/22/2012 documented as of this encounter (statuses as of 04/16/2023) [facility] noteNo assessment information availableWHolmes County [facility] Work Phone: evaluation note* Diagnosis Encounter for screening for malignant neoplasm of colon- Primary Special screening for malignant neoplasms, colon Family history of colon cancer Family history of malignant neoplasm of gastrointestinal tract Tortuous colon Volvulus documented in this encounter [facility] note* Diagnosis Onset Date Resolution Status Atherosclerotic heart diseas e of [place] coronary artery without angina pectoris chronic Essential hypertension chron ic [facility] Work Phone: evaluation note* Diagnosis Family history of colon cancer- Primary Family history of malignant neoplasm of gastrointestinal tract documented in this encounter [facility] note* Diagnosis Encounter for gynecological examination (general) (routine) without abnormal findings- Primary Encounter for screening mammogram for breast cancer Obesity, Class I, BMI 30-34.9 Obesity, unspecified documented [facility] [place] [facility]* Diagnosis Encounter for gynecological examination (general) (routine) without abnormal findings Encounter for screening mammogram for breast cancer [facility] Diagnosis Encounter for gynecological examination (general) (routine) without abnormal findings- Primary Encounter for screening mammogram for breast cancer documented in this encounter [facility] note* Diagnosis Encounter for screening mammogram for breast cancer documented in this encounter [facility] note* Diagnosis Onset Date Resolution Status Atherosclerotic heart diseas e of [place] coronary artery without angina pectoris chronic Essential hypertension chron ic Hyperlipidemia [facility] Work Phone: Evaluation note* Diagnosis Onset Date Resolution Status History of DVT (deep vein thrombosis) acute Atherosclerotic heart diseas e of [place] coronary artery without angina pectoris chronic Essential hypertension chron ic Hyperlipidemia [facility] Work Phone: evaluation note* Diagnosis Encounter for screening mammogram for malignant neoplasm of breast- Primary Other screening mammogram documented in this encounter [facility] note* Diagnosis Encounter for gynecological examination (general) (routine) without abnormal findings- Primary Encounter for screening for human papillomavirus (HPV) Special screening examination for human papillomavirus (HPV) Pap smear for cervical cancer screening Screening for malignant neoplasm of the cervix Encounter for screening mammogram for breast cancer Pelvic pain in female Unspecified symptom associated with female genital organs [facility] Diagnosis Encounter for screening mammogram for malignant neoplasm of breast Other screening mammogram documented [facility] this [facility]* Diagnosis Pelvic pain in female- Primary Unspecified symptom associated with female genital organs Fibroids, subserous Subserous leiomyoma of uterus documented in this encounter [facility] for referral (narrative)* Outpatient Procedure (Routine) - Closed Specialty Diagnoses / Procedures Referred By Иван christine Referred To Contact [facility] Diagnoses Family history of colon cancer Procedures COLONOSCOPY SCREENING COLONOSCOPY SCREENING COLONOSCOPY FLX DX W/COLLJ SPEC WHEN PFRMJoelle Acevedo MD [address] [address] [facility] [address] [place] [address] Referral ID Status Reason Start Date Expiration Date V isits Requested Visits Authorized [id number] Closed Auto-Generate d Referral 03/08/2022 03/08/2023 1 1 [facility] for referral (narrative)* Diagnostic Procedure Only (Routine) - Pending Review Specialty Diagnoses / Procedures Referred By Иван christine Referred To Contact [facility] Diagnoses Encounter for screening mammogram for breast cancer Procedures ROSIE SCREENING W NICOLLE SCREENING DIGITAL BREAST TOMOSYNTHESIS BI SCREENING MAMMOGRAPHY BI 2-VIEW BREAST INC CAD Franci Metcalf MD [address] [place] [address] [facility] [address] [place] [address] Referral ID Status Reason Start Date Expiration Date Visits Requested Visits Authorized [id number] Pending Review Auto-Generat ed Referral 2 05/01/2023 1 1 [facility] for referral (narrative)* Diagnostic Procedure Only (Routine) - Closed Specialty Diagnoses / Procedures Referred By Иван christine Referred To Contact [facility] Diagnoses Encounter for gynecological examination (general) (routine) without abnormal findings Encounter for screening mammogram for breast cancer Procedures ROSIE SCREENING SCREENING MAMMOGRAPHY BI 2-VIEW BREAST INC CAD Franci Metcalf MD [address] [place] [address] [facility] [address] [place] [address] Referral ID Status Reason Start Date Expiration Date V isits Requested Visits Authorized [id number] Closed Auto-Generate d Referral 04/01/2022 05/15/2022 1 1 [facility] for referral (narrative)* Diagnostic Procedure Only (Routine) - Pending Review Specialty Diagnoses / Procedures Referred By Иван christine Referred To Contact [facility] Diagnoses Encounter for gynecological examination (general) (routine) without abnormal findings Encounter for screening mammogram for breast cancer Procedures ROSIE SCREENING SCREENING MAMMOGRAPHY BI 2-VIEW BREAST INC Franci Cruz MD [address] [place] [address] [facility] [address] [place] [address] Referral ID Status Reason Start Date Expiration Date Visits Requested Visits Authorized [id number] Pending Review Auto-Generat ed Referral 3 05/12/2024 1 1 [facility] for referral (narrative)* Diagnostic Procedure Only (Routine) - Authorized Specialty Diagnoses / Procedures Referred By Иван t Referred To Contact [facility] Diagnoses Encounter for screening mammogram for malignant neoplasm of breast Procedures ROSIE SCREENING W NICOLLE SCREENING DIGITAL BREAST TOMOSYNTHESIS BI SCREENING MAMMOGRAPHY BI 2-VIEW BREAST INC CAD Wes Argueta APRN.APPLICATION SUPPORT INTERN [address] [place] [address] [facility] [address] [place] [address] Referral ID Status Reason Start Date Expiration Date Visits Requested Visits Authorized [id number] Authorized Auto-Generat ed Referral 4 05/27/2025 1 1 [facility] for referral (narrative)* Diagnostic Procedure Only (Routine) - Authorized Specialty Diagnoses / Procedures Referred By Иван christine Referred To Contact [facility] Diagnoses Pelvic pain in female Procedures PELVIC US WHI US PELVIC NONOBSTETRIC REAL-TIME IMAGE COMPLETE Franci Metcalf MD [address] [place] [address] [facility] [address] [place] [address] Referral ID Status Reason Start Date Expiration Date Visits Requested Visits Authorized [id number] Authorized Auto-Generat ed Referral 05/28/2024 05/28/2025 1 1 * Diagnostic Procedure Only (Routine) - Authorized Specialty Diagnoses / Procedures Referred By Иван christine Referred To Contact [facility] Diagnoses Encounter for gynecological examination (general) (routine) without abnormal findings Encounter for screening mammogram for breast cancer Procedures ROSIE SCREENING W NICOLLE SCREENING DIGITAL BREAST TOMOSYNTHESIS BI SCREENING MAMMOGRAPHY BI 2-VIEW BREAST INC CAD Franci Metcalf MD [address] [place] [address] [facility] [address] [place] [address] Referral ID Status Reason Start Date Expiration Date Visits Requested Visits Authorized [id number] Authorized Auto-Generat ed Referral 05/28/2024 06/27/2025 1 1 [facility] (narrative)No reason for referral information availableWHolmes [facility] Work Phone: [facility] Narrative* Diagnostic Procedure Only (Routine) - Closed Specialty Diagnoses / Procedures Referred By Иван christine Referred To Contact [facility] Diagnoses Encounter for gynecological examination (general) (routine) without abnormal findings Encounter for screening mammogram for breast cancer Procedures ROSIE SCREENING SCREENING MAMMOGRAPHY BI 2-VIEW BREAST INC Franci Cruz MD [address] [place] [address] [facility] [address] [place] [address] Referral ID Status Reason Start Date Expiration Date V isits Requested Visits Authorized [id number] Closed Auto-Generate d Referral 04/01/2022 05/15/2022 1 1 [facility] for visit Narrative* Diagnostic Procedure Only (Routine) - Closed Specialty Diagnoses / Procedures Referred By Иван t Referred To Contact [facility] Diagnoses Encounter for screening mammogram for breast cancer Procedures ROSEI SCREENING W NICOLLE SCREENING DIGITAL BREAST TOMOSYNTHESIS BI SCREENING MAMMOGRAPHY BI 2-VIEW BREAST INC CAD Franci Metcalf MD [address] [place] [address] [facility] [address] [place] [address] Referral ID Status Reason Start Date Expiration Date V isits Requested Visits Authorized [id number] Closed Auto-Generate d Referral 04/01/2022 05/01/2023 1 0 [facility] for visit Narrative* Diagnostic Procedure Only (Routine) - Closed Specialty Diagnoses / Procedures Referred By Иван t Referred To Contact [facility] Diagnoses Encounter for screening mammogram for malignant neoplasm of breast Procedures ROSIE SCREENING W NICOLLE SCREENING DIGITAL BREAST TOMOSYNTHESIS BI SCREENING MAMMOGRAPHY BI 2-VIEW BREAST INC CAD Wes Argueta, SYSTEM CONTROLLER.APPLICATION SUPPORT INTERN [address] [place] [address] [facility] [address] [place] [address] Referral ID Status Reason Start Date Expiration Date V isits Requested Visits Authorized [id number] Closed Auto-Generate d Referral 04/30/2024 05/27/2025 1 1 [facility] for visit Narrative* Diagnostic Procedure Only (Routine) - Closed Specialty Diagnoses / Procedures Referred By Иван t Referred To Contact [facility] Diagnoses Pelvic pain in female Procedures PELVIC US I US PELVIC NONOBSTETRIC REAL-TIME IMAGE COMPLETE Franci Metcalf MD [address] [place] [address] [facility] [address] [place] [address] Referral ID Status Reason Start Date Expiration Date V isits Requested Visits Authorized [id number] Closed Auto-Generate d Referral 05/28/2024 05/28/2025 1 1 [facility] Chief Complaint and Reason for Visit Chief Complaint 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, CP - R/O PE PAIN- COPY PCP Chief Complaint NONDISP FX MED RT RI NG FIN,CONTUS RT HAND Chief Complaint 10 MO F/U NONDISP FX MED RT RING FIN,CONTUS RT HAND Reason for Visit Atherosclerotic hear t disease of [place] coronary artery without angina pectoris Essential hypertension Chief Complaint NONDISP FX MED RT RI NG FIN,CONTUS RT HAND PAIN- COPY PCP Chief Complaint PAIN- COPY PCP S/O- PAIN- COPY PCP Chief Complaint S/O- PAIN- COPY PCP EORDER Cough, unspecified EORDER Chief Complaint S/O- PAIN- COPY PCP EORDER Cough, unspecified EORDER STANDING ORDER Chief Complaint 1 Y FU S/O- 2DRS, BRAYAN AND JANAY AND 2 ORDERS chest pain Reason for Visit Atherosclerotic hear t disease of [place] coronary artery without angina pectoris Essential hypertension Hyperlipidemia Chief Complaint 1 Y FU S/O- 2DRS, SABI AND 2 ORDERS chest pain S/O- COPY PCP Reason for Visit Atherosclerotic hear t disease of [place] coronary artery without angina pectoris Essential hypertension Hyperlipidemia Chief Complaint 1 Y FU S/O- 2DRS, BRAYAN AND JANAY AND 2 ORDERS chest pain S/O- COPY PCP ABDOMINAL PAIN Reason for Visit Atherosclerotic hear t disease of [place] coronary artery without angina pectoris Essential hypertension Hyperlipidemia Chief Complaint chest pain S/O- COPY PCP ABDOMINAL PAIN Chief Complaint S/O- COPY PCP ABDOMINAL PAIN S/O- PAIN- COPY PCP 6 M FU LT LEG PAIN Reason for Visit History of DVT (deep vein thrombosis) Atherosclerotic heart disease of [place] coronary artery without angina pectoris Essential hypertension Hyperlipidemia Chief Complaint Admit Date PAIN- COPY PCP May 25, 2024 1 0:03am Amb Documentation May 31, 2024 3 :55pm 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 June 28, 2024 8:55am Reason for Visit Admit Date History of DVT (deep vein thrombosis) Fe bruary 2024 8:55am Family History No Family History Records Found Relationship Condition Age at Onset Recorded Date/T felipe brother Congenital anomaly of heart Unknown father Hypertension Unknown Relationship Condition Age at Onset Recorded Date/T felipe brother Congenital anomaly of heart Unknown Cardiac disease Unknown father Hypertension Unknown Malignant neoplasm Unknown mother Fibrosis of lung Unknown Malignant neoplasm of colon Unknown Advance Directives No Advanced Directives Records Found Advance Directive Response Recorded Date/ Time Advance Directives No December 14, 2 016 8:54am Living Will No July 17, 2020 12:40pm Power of Client Service Associate No July 17 12:40pm Advance Directive Response Recorded Date/ Time Advance Directives No December 14, 2 016 7:54am Living Will No July 17, 2020 11:40am Power of Client Service Associate No July 17 11:40am Advance Directive Response Recorded Date/ Time Advance Directives No December 14, 2 016 7:54am Living Will No May 07, 2 023 2:33am Power of Client Service Associate No May 07, 2023 2:33am Advance Directive Response Recorded Date/ Time Advance Directives No December 14 2 016 8:54am Living Will No May 07, 2 023 3:33am Power of Client Service Associate No May 07, 2023 3:33am Advance Directive Response Recorded Date/ Time Advance Directives No December 14, 2 016 8:54am Summary Purpose Additional Source Comments Goals (unrecognized section and content) Goals may be documented in a n alternate sectionGoals may be documented in an alternate sectionGoals may be documented in an alternate sectionGoals may be documented in an alternate sectionGoals may be documented in an alternate sectionGoals may be documented in an alternate sectionGoals may be documented in an alternate sectionGoals may be documented in an alternate sectionGoals may be documented in an alternate sectionGoals may be documented in an alternate sectionGoals may be documented in an alternate sectionGoals may be documented in an alternate sectionGoals may be documented in an alternate sectionGoals may be documented in an alternate sectionGoals may be documented in an alternate sectionGoals may be documented in an alternate sectionGoals may be documented in an alternate sectionGoals may be documented in an alternate sectionGoals may be documented in an alternate sectionGoals may be documented in an alternate sectionGoals may be documented in an alternate section Source Comments (unrecognize d section and content) In the event this informatio n is protected by the [facility] of Alcohol and Drug Abuse Patient Records regulations: The Federal rules restrict any use of the information to criminally investigate or prosecute any alcohol or drug abuse patient.[facility] HospitalIn the event this information is protected by the Federal Confidentiality of Alcohol and Drug Abuse Patient Records regulations: The Federal rules restrict any use of the information to criminally investigate or prosecute any alcohol or drug abuse patient.[facility] HospitalIn the event this information is protected by the Federal Confidentiality of Alcohol and Drug Abuse Patient Records regulations: The Federal rules restrict any use of the information to criminally investigate or prosecute any alcohol or drug abuse patient.[facility] HospitalIn the event this information is protected by the Federal Confidentiality of Alcohol and Drug Abuse Patient Records regulations: The Federal rules restrict any use of the information to criminally investigate or prosecute any alcohol or drug abuse patient.[facility] HospitalIn the event this information is protected by the Federal Confidentiality of Alcohol and Drug Abuse Patient Records regulations: The Federal rules restrict any use of the information to criminally investigate or prosecute any alcohol or drug abuse patient.[facility] HospitalIn the event this information is protected by the Federal Confidentiality of Alcohol and Drug Abuse Patient Records regulations: The Federal rules restrict any use of the information to criminally investigate or prosecute any alcohol or drug abuse patient.[facility] HospitalIn the event this information is protected by the Federal Confidentiality of Alcohol and Drug Abuse Patient Records regulations: The Federal rules restrict any use of the information to criminally investigate or prosecute any alcohol or drug abuse patient.[facility] HospitalIn the event this information is protected by the Federal Confidentiality of Alcohol and Drug Abuse Patient Records regulations: The Federal rules restrict any use of the information to criminally investigate or prosecute any alcohol or drug abuse patient.[facility] HospitalIn the event this information is protected by the Federal Confidentiality of Alcohol and Drug Abuse Patient Records regulations: The Federal rules restrict any use of the information to criminally investigate or prosecute any alcohol or drug abuse patient.[facility] HospitalIn the event this information is protected by the Federal Confidentiality of Alcohol and Drug Abuse Patient Records regulations: The Federal rules restrict any use of the information to criminally investigate or prosecute any alcohol or drug abuse patient.[facility] HospitalIn the event this information is protected by the Federal Confidentiality of Alcohol and Drug Abuse Patient Records regulations: The Federal rules restrict any use of the information to criminally investigate or prosecute any alcohol or drug abuse patient.[facility] HospitalIn the event this information is protected by the Federal Confidentiality of Alcohol and Drug Abuse Patient Records regulations: The Federal rules restrict any use of the information to criminally investigate or prosecute any alcohol or drug abuse patient.[facility] HospitalIn the event this information is protected by the Federal Confidentiality of Alcohol and Drug Abuse Patient Records regulations: The Federal rules restrict any use of the information to criminally investigate or prosecute any alcohol or drug abuse patient.[facility] Reason for Visit (unrecogniz ed section and content) Reason Comments Consult colonoscopy Specialty Diagnoses / Procedures Referred By Antoniaac t Referred To Contact General Surgery / GENERAL SURGERY Diagnoses COLONOSCOPY RECALL LETTER Procedures NEW DDI PATIENT Self Diane Reynoso PA-C [address] [place] [address] Referral ID Status Reason Start Date Expiration Date Visits Re quested Visits Authorized [id number] Closed 03/08/2022 05/15/2022 1 1 Reason Comments 03/25 COLON LODI Reason Comments Yearly Exam Specialty Diagnoses / Procedures Referred By Иван t Referred To Contact [facility] Diagnoses annual Procedures EST [facility] ANNUAL PATIENT Self Franci Metcalf MD [address] [place] [address] Referral ID Status Reason Start Date Expiration Date Visits Re quested Visits Authorized [id number] Closed 04/01/2022 05/15/2022 1 1 Reason Comments Results Specialty Diagnoses / Procedures Referred By Contac t Referred To Contact [facility] Diagnoses Encounter for gynecological examination (general) (routine) without abnormal findings Annual exam Procedures WELLNESS EXAMS EST 40-64 YRS EST [facility] ANNUAL PATIENT Self Franci Metcalf MD [address] [place] [address] Referral ID Status Reason Start Date Expiration Date Visits Re quested Visits Authorized [id number] Closed 03/28/2023 05/15/2023 1 1 Reason Comments Orders Reason Comments Yearly Exam With Mammogram Care Teams (unrecognized sec tion and content) 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 Remote Sensing Scientist Relationship Specialty Start Date End Date Brett Leon [address] [place] [address] PCP - General 08/13/03 Microwave Remote Sensing Scientist Relationship Specialty Start Date End Date Brett Leon [address] [place] [address] PCP - General 08/13/03 Microwave Remote Sensing Scientist Relationship Specialty Start Date End Date Brett Leon [address] [place] [address] PCP - General 08/13/03 Microwave Remote Sensing Scientist Relationship Specialty Start Date End Date Brett Leon [address] [place] [address] PCP - General 08/13/03 Team Status: Active Member Role Status Dates Dr. Brett Leon MD Family Provider Active Dr. Brett Leon MD Primary Care Provider Active Team Status: Inactive Member Role Status Dates Dr. Brett Leon MD Primary Care Provider Active Tito CORRAL PA-C Attending Provider, Referring Pr ovider Active Team Status: Inactive Member Role Status Dates Dr. Brett Leon MD Primary Care Provider Active Dr. Sonia Schmidt MD Attending Provider, Referring Provider Active Microwave Remote Sensing Scientist Relationship Specialty Start Date End Date Brett Leon [address] [place], [place] [address] PCP - General 08/13/03 Team Status: Inactive Member Role Status Dates Dr. Brett Leon MD Primary Care Provider Active Dr. Wilian Cyr MD Attending Provider, Referring Pr ovider Active Team Status: Active Member Role Status Dates Dr. Brett Leon MD Primary Care Provider Active Dr. Wilian Cyr MD Attending Provider, Referring Pr ovider Active Team Status: Active Member Role Status Dates Dr. Brett Leon MD Primary Care Provider Active Pam Dickinson MD Attending Provider, Referring Provide r Active Team Status: Inactive Member Role Status Dates Dr. Brett Leon MD Primary Care Provider Active Pam Dickinson MD Attending Provider, Referring Provide r Active Microwave Remote Sensing Scientist Relationship Specialty Start Date End Date Brett Leon [address] [place] [address] PCP - General 08/13/03 Microwave Remote Sensing Scientist Relationship Specialty Start Date End Date Brett Leon [address] [place] [address] PCP - General 08/13/03 Microwave Remote Sensing Scientist Relationship Specialty Start Date End Date Brett Leon [address] [place] [address] PCP - General 08/13/03 Microwave Remote Sensing Scientist Relationship Specialty Start Date End Date Brett Leon [address] [place] [address] PCP - General 08/13/03 Team Status: Inactive Member Role Status Dates Dr. Brett Leon MD Primary Care Provider, Referrin g Provider Active Lashawn Dahl RAMP SERVICE AGENT, RAMP SERVICE AGENT-C Attending Provider Active Team Status: Inactive Member Role Status Dates Dr. Brett Leon MD Primary Care Provider Active Lashawn Dahl RAMP SERVICE AGENT, RAMP SERVICE AGENT-C Attending Provider, Referring P rovider Active Dr. Sonia Schmidt MD Other Provider Active Team Status: Inactive Member Role Status Dates Dr. Brett Leon MD Primary Care Provider Active Dr. Jose Antonio Poole DO Emergency Provider Active Team Status: Inactive Member Role Status Dates Dr. Brett Leon MD Primary Care Provider Active Dr. Jose Antonio Poole DO Attending Provider, Emergency P rovider Active Team Status: Active Member Role Status Dates Dr. Brett Leon MD Primary Care Provider Active Dr. Saud Mccall MD Attending Provider Active Team Status: Active Member Role Status Dates Dr. Brett Leon MD Primary Care Provider Active Lashawn Dahl RAMP SERVICE AGENT, RAMP SERVICE AGENT-C Attending Provider, Referring P rovijosue Active Team Status: Inactive Member Role Status Dates Dr. Brett Leon MD Primary Care Provider Active Lashawn Dahl RAMP SERVICE AGENT, RAMP SERVICE AGENT-C Attending Provider, Referring P rovider Active Microwave Remote Sensing Scientist Relationship Specialty Start Date End Date Brett Leon [address] [place] [address] PCP - General 08/13/03 Microwave Remote Sensing Scientist Relationship Specialty Start Date End Date Brett Leon [address] [place] [address] PCP - General 08/13/03 Microwave Remote Sensing Scientist Relationship Specialty Start Date End Date Brett Leon [address] [place] [address] PCP - General 08/13/03 Team Status: Active Member Role Status Dates Dr. Brett Leon MD Primary Care Provider Active Team Status: Inactive Member Role Status Dates Dr. Brett Leon MD Primary Care Provider Active Start: May 25, 2024 End: May 25, 2024 Dr. Sonia Schmidt MD Attending Provider Active Start: May 25, 2024 End: May 25, 2024 Dr. Sonia Schmidt MD Referring Provider Active Start: May 25, 2024 End: May 25, 2024 Team Status: Active Member Role Status Dates Dr. Brett Leon MD Primary Care Provider Active Start: May 31, 2024 Susan Anderson Attending Provider Active Start: May 31, 2024 Team Status: Inactive Member Role Status Dates Dr. Brett Leon MD Primary Care Provider Active Start: June 28, 2024 End: June 28, 2024 Dr. Brett Leon MD Referring Provider Active Start: June 28, 2024 End: June 28, 2024 Dr. Brock Martinez MD Attending Provider Active Start: June 28, 2024 End: June 28, 2024 Team Status: Inactive Member Role Status Dates Dr. Brett Leon MD Primary Care Provider Active Start: July 27, 2024 End: July 27, 2024 Dr. Sonia Schmidt MD Attending Provider Active Start: July 27, 2024 End: July 27, 2024 Dr. Sonia Schmidt MD Referring Provider Active Start: July 27, 2024 End: July 27, 2024 INFORMATION SOURCE (unrecogn ized section and content) DATE CREATED AUTHOR 03/27/2022 [facility] DATE CREATED AUTHOR AUTHOR'S ORGANIZ ATION 06/06/2024 [facility] DATE CREATED AUTHOR AUTHOR'S ORGANIZ ATION 10/14/2024 [facility] FOR RECORDS PERTAINING TO PATIENTS WHO ARE [...] BE BASED ON THE PRIMARY CLINICAL RECORDS. [employer] provides no warranty or guarantee of the accuracy or completeness of information in this document.
[2024-10-30 15:14] LABS: ALB/GLOB Ratio 1.6 RATIO (0.9-2.4); AST(SGOT) 36 U/L (<=31); Alanine Aminotransfer ALT/SGPT 24 U/L (<=34); Albumin, Serum 3.7 g/dL (3.4-4.8); Alkaline Phosphatase 112 U/L (35-104); Anion Gap 11 (5-15); BUN 12 mg/dL (4-19); BUN/Creat Ratio 18.4 RATIO (10-20); Calcium,Total 9.1 mg/dL (7.6-11.0); Carbon Dioxide 26.1 mmol/L (21.0-32.0); Chloride 103 mmol/L (98-108); Creatinine, Serum 0.67 mg/dL (0.70-1.20); EST Glomerular Filtration Rate 98 (>60); Globulin 2.4 g/dL (2.2-4.2); Glucose 85 mg/dL (70-99); Potassium 3.7 mmol/L (3.3-5.1); Protein, Total 6.1 g/dL (5.9-8.4); Sodium Level 141 mmol/L (133-145); Total Bilirubin 0.29 mg/dL (0.00-1.30)
== END | disposition home or self-care (01) ==
LOC: MTLAB 13:43
PROVIDERS: PCP Family Medicine; Referring Provider Internal Medicine Rheumatology; Visit Provider Internal Medicine Rheumatology
DX: M06.4 Inflammatory polyarthropathy (principal); Z79.899 Other long term (current) drug therapy
CPT/HCPCS: 36415; 80053; 85025

== ENCOUNTER → 2025-01-18 | Outpatient (CLI) | payer OTHER, SELFPAY ==
[2025-01-18 18:00] LABS: Hematocrit 36.7 % (37-47); Hemoglobin 12.5 g/dL (12.0-15.0); Immature Granulocytes Count 0.040 X10^3/uL (0.0-0.0); Mean Corp Hgb Conc 34.1 g/dL (32-36); Mean Corpuscular Volume 91.8 fL (81-99); Mean Platelet Vol. 10.0 fl (6.2-12.0); NRBC Flagged by Analyzer 0 % (0-5); Platelet Count 317 K/mm3 (150-450); RBC Distribution Width CV 12.6 % (11.6-14.6); RBC Distribution Width SD 42.4 fl (35.1-43.9); Red Blood Count 4.00 M/mm3 (4.2-5.4); White Blood Count 6.5 K/mm3 (4.4-11.0)
[2025-01-18 18:31] LABS: AST(SGOT) 37 U/L (<=31); Alanine Aminotransfer ALT/SGPT 27 U/L (<=34); Albumin, Serum 3.5 g/dL (3.4-4.8); Alkaline Phosphatase 103 U/L (35-104); Anion Gap 10 (5-15); BUN 15 mg/dL (4-19); BUN/Creat Ratio 22.3 RATIO (10-20); Calcium,Total 9.5 mg/dL (7.6-11.0); Carbon Dioxide 26.7 mmol/L (21.0-32.0); Chloride 103 mmol/L (98-108); Globulin 2.7 g/dL (2.2-4.2); Glucose 90 mg/dL (70-99); Potassium 3.7 mmol/L (3.3-5.1)
== END | disposition home or self-care (01) ==
LOC: MTLAB 15:12
PROVIDERS: PCP Family Medicine; Referring Provider Internal Medicine Rheumatology; Visit Provider Internal Medicine Rheumatology
DX: M06.4 Inflammatory polyarthropathy (principal); I10 Essential (primary) hypertension; Z79.899 Other long term (current) drug therapy
CPT/HCPCS: 36415; 80053; 85025

== ENCOUNTER → 2025-03-19 | Outpatient (CLI) | payer OTHER, SELFPAY ==
--- NOTE | 2025-03-19 16:34 | RAD_ITS ---
PROCEDURE: RAD/HIP, UNI W/ Pelvis 2-3 Views
== END | disposition home or self-care (01) ==
LOC: MTRAD 16:19
PROVIDERS: PCP Family Medicine; Referring Provider Family Medicine; Visit Provider Family Medicine
DX: M25.551 Pain in right hip (principal)
CPT/HCPCS: 73502

== ENCOUNTER → 2025-03-28 | Outpatient (CLI) | payer OTHER, SELFPAY ==
--- NOTE | 2025-03-28 13:51 | BD_ITS ---
PROCEDURE: DEXA BONE DENSITY STUDY 03/28/2025 REASON FOR EXAM: F, age 65 y/o . Postmenopausal. TECHNIQUE: Procedure Code: BDDBD Modality: DX Procedure: DEXA BONE DENSITY STUDY COMPARISON: None FINDINGS: BMD and T-SCORES Lumbar spine: 0.946 g/cm2, T-score -0.3 Levels: L1 through L4 Left femoral neck: 0.887 g/cm2, T-score 0.3 Femoral neck comparison data not recommended for monitoring change. Left total hip: 1.050 g/cm2, T-score 0.9 Right femoral neck: 0.900 g/cm2, T-score 0.5 Femoral neck comparison data not recommended for monitoring change. Right total hip: 1.013 g/cm2, T-score 0.6 The World Health Organization has defined the following categories based on bone density: Normal bone density: T-score equal to or greater than -1.0 Osteopenia: T-score between -1.0 and -2.5 Osteoporosis: T-score equal to or less than -2.5 FRAX (or Comparable) Fracture Risk Assessment: 10 Year Probability of Fracture: Major Osteoporotic Fracture: 23% Hip Fracture: 0.4% (Note: FRAX is not to be reported in setting of normal range bone density, osteoporosis on DEXA, known history of osteoporosis, prior osteoporotic hip or vertebral fracture, or for any patient undergoing pharmacological treatment for bone loss.) The National Osteoporosis Foundation (NOF) recommends pharmacological treatment for patients with a FRAX 10-year risk of 3% or higher for a hip fracture, or 20% or higher for a major osteoporotic fracture, to prevent osteoporosis and reduce fracture risk. The patient does meet the pharmacological treatment recommendations for prevention of osteoporosis. BD/Dexa Bone Density Study IMPRESSION: NORMAL T-SCORES. Recommend follow-up as clinically warranted. Reading Location: [place] [id number]
--- OUTSIDE RECORDS SUMMARY | 2025-03-28 18:40 | XMS RPT_ITS | CCD ---
Author Organization [facility] Care Team Providers Care Student Admissions Clerk Name Role Phone SURI Gee, Solange Cooney Unavailable Unavailabl Claudia Hui Unavailable Unavailable Salvador Alcantar Unavailable Unavailable Rafa ART, Titi Villa Unavailable SURI Gee, Solange Cooney Unavailable Unavailabl breanne Gee RN, Solange Cooney Unavailable UnavailBrett Wiley Primary Care Provider [phone] Dr. Brett Leon Primary Care Provider Dr. Brett Leon Referring Provider [phone] Ketih Mccray Attending Provider PAMELLA TRUJILLO Attending Unavailable JOELLE CASAS Referring Unavailable BRETT LEON Primary Care Unavailable Brett Leon Primary Care Provider [phone] Dr. Brett Leon Primary Care Provider Dr. Brett Leon Referring Provider Dr. Keith Mccray Attending Provider Brett Leon Primary Care Provider [phone] Dr. Brett Leon Primary Care Provider Dr. Brett Leon Referring Provider [phone] [place] ART, KAELYN-C Lashawn Attending Provider Dr. Brett Leon Primary Care Provider [phone] Brett Leon Referring Provider [phone] [place] ART, EGG CASER-C Lashawn Attending Provider Dr. Saud Mccall Attending Provider Jolliff, Brett Keysha Primary Care Provider FRANCI METCALF Referring Unavailable JOLLIFF, BRETT KEYSHA Primary Care Unavailable FRANCI METCALF Attending Unavailable HAVARGAS, WES Referring Unavailable JOLLIFF, BRETT KEYSHA Primary Care Unavailable HAURY, WES Referring Unavailable JOLLIFF, BRETT KEYSHA Primary Care Unavailable Martita RIVERA, Dr. Brett Guzmán Primary Care Provider Brayan RIVEAR, Dr. Scott Attending Provider Brayan RIVERA, Dr. Scott Referring Provider Susan Anderson Attending Provider Unavailable Martita RIVERA, Dr. Brett Guzmán Referring Provider Michelle RIVERA, Dr. Gutiérrez Attending Provider Martita RIVERA, Dr. Brett Guzmán Primary Care Provider Brayan RIVERA, Dr. Scott Attending Provider Brayan RIVERA, Dr. Scott Referring Provider Martita RIVERA, Dr. Brett Guzmán Referring Provider Shazia RIEVRA, Dr. Parker Attending Provider Dr. Keith Mccray MD Referring Provider Alok RIVERA, Pam Primary Care Provider [place] ART-C, Lashawn Attending Provider Alok RIVERA, Pam Primary Care Physician Dr. Sonia Schmidt MD Attending Physician Dr. Sonia Schmidt MD Referring Provider [place] EGG CASER-C, Lashawn Attending Physician Sonia Schmidt Attending Unavailable Sonia Schmidt Referring Unavailable Pam Dickinson Primary Care Unavailable Obinna Cochran Referring Unavailable Obinna Cochran Attending Unavailable Obinna Cochran Primary Care Unavailable Alok, Chalvivienne Primary Care Unavailable Shazia, Keith Referring Unavailable Shazia, Keith Attending Unavailable Obinna Cochran Referring Unavailable Obinna Cochran Attending Unavailable Obinna Cochran Primary Care Unavailable Alok, Chalon Primary Care Unavailable [place] EGG CASER, Lashawn Attending Unavailable [place] EGG CASER, Lashawn Consulting Unavailable Jolliff, Brett S Primary Care Unavailable Shazia, Keith Attending Unavailable [place]ham EGG CASER, Lashawn Referring Unavailable Alok, Chalon Primary Care Unavailable Shazia, Keith Referring Unavailable Shazia, Keith Attending Unavailable Shazia, Lyons Attending Unavailable Jolliff, Brett S Primary Care Unavailable Jolliff, Brett S Referring Unavailable Brock Martinez Attending Unavailable Jolliff, Brett S Primary Care Unavailable Jolliff, Brett S Referring Unavailable Jolliff, Brett S Primary Care Unavailable [place] EGG CASER, Lashawn Attending Unavailable Susan Anderson Attending Unavailable Jolliff, Brett S Primary Care Unavailable Jolliff, Brett S Primary Care Unavailable [place] EGG CASER, Lashawn Referring Unavailable [place] EGG CASER, Lashawn Attending Unavailable Vellanki, Sonia Referring Unavailable Vellanki, Sonia Attending Unavailable Jolliff, Brett S Primary Care Unavailable Vellanki, Sonia Referring Unavailable Vellanki, Sonia Attending Unavailable Jolliff, Brett S Primary Care Unavailable Vellanki, Sonia Referring Unavailable Vellanki, Sonia Attending Unavailable Alok, Chalon Primary Care Unavailable Medications Current Medications Medication Drug Class(es) Dates Sig (Normalized) Sig (Original) aspirin 81 mg delayed release oral tablet (20 sources) Nonsteroidal Anti-inflammatory Drug Start: 08-17-2017 take 1 tablet by mouth once daily Start: 03-21-2014 End: 12-23-2015 take 1 tablet by mouth once daily Aspirin 81 MG Tab.Chew Discontinued 81 mg PO DAILY@0800 March 21, 2014 1:00am December 23, 2015 10:03am Start: 02-15-2014 take 1 tablet by juany th once daily ASPIRIN 81 MG TABS One tablet by mouth daily ASPIRIN [id number] Joanna Falcon RN Start: 02-15-2014 take 1 tablet by juany th once daily ASPIRIN 81 MG TABS One tablet by mouth daily ASPIRIN [id number] Joanna Falcon RN Start: 02-15-2014 take 1 tablet by juany th once daily ASPIRIN EC 81 MG TBEC One tablet by mouth daily ASPIRIN [id number] Marjorie Leahy RN ASPIRIN LOW DOSE ORAL [...] Agent, Vitamin K Start: 03-21-2014 End: 08-17-2017 Start: 03-21-2014 End: 08-17-2017 Calcium-Vitamin D3-Vitamin K Discontinued 1 EACH PO DAILY March 21, 2014 1:00am August 17, 2017 10:22am fluticasone propionate 0.05 mg/actuat metered dose nasal spray (20 sources) Corticosteroid Start: 05-07-2023 Start: 05-07-2023 Fluticasone Pr opionate Active 2 SPRAY INTRANASAL DAILY May 07, 2023 1:00am Start: 03-09-2022 fluticasone (F LONASE) 50 mcg/actuation nasal spray 2 Sprays once daily. 03/09/2022 Active Comment on above: 2 Sprays once daily. folic acid 1 mg oral tablet (20 sources) Start: 01-21-2022 take 2 tablets by mouth once daily Start: 01-21-2022 take 2 mg by mouth once daily Folic Acid Active 2 MG PO DAILY January 21, 2022 12:00am Start: 12-30-2021 folic acid 1 m g tablet 12/30/2021 Active hydroxychloroquine sulfate 200 mg oral tablet (20 sources) Antirheumatic Agent Start: 11-13-2008 take 1 tablet by mouth twice daily at mealtime Comment on above: Take one(1) tablet t wice daily. methotrexate 2.5 mg oral tablet (20 sources) Folate Analog Metabolic Inhibitor Start: 01-21-2022 Start: 01-21-2022 take 15 mg by mouth [...] Take one(1) tablet d aily. Multivitamin tablet (3 sources) Start: 01-21-2022 Start: 01-21-2022 Multivitamin t ablet Active 1 [...] March 21, 2014 1:00am polyethylene glycol 3350 362308 mg / potassium chloride 2970 mg / sodium bicarbonate 6740 mg / sodium chloride 5860 mg / sodium sulfate 26239 mg powder for oral solution (1 source) Osmotic Laxative Start: 03-08-2022 End: 03-08-2022 peg 3350-Electrolytes (GOLYTELY) 236-22.74-6.74 -5.86 gram suspension Take 4,000 mL by mouth one time only for 1 dose. 1 Each 0 03/08/2022 03/08/2022 Active Comment on above: Take 4,000 mL by juany one time only for 1 dose. Completed/Discontinued [...] 2017 11:21am apixaban 5 mg oral tablet (5 sources) Factor Xa Inhibitor Start: 09-07-2023 End: 03-08-2024 take 1 tablet by mouth once Apixaban (Eliquis Dvt-Pe Treat 30d Start) 5 mg (74 tabs) tablets,dose pack Discontinued 0 PO per package directions 74 0 September 07, 2023 12:00am March 08, 2024 [...] by mouth daily CALCIUM-VITAMIN D-VITAMIN K CHEW [id number] Joanna Falcon RN Start: 02-15-2014 take 1 tablet by juany once daily VIACTIV CHEW One tablet by mouth daily CALCIUM-VITAMIN D-VITAMIN K CHEW [id number] Joanna Falcon RN cefadroxil 500 mg oral capsule (20 sources) Cephalosporin Antibacterial Start: 12-23-2015 End: 08-17-2017 take 1 capsule by mouth twice daily Cefadroxil 500 MG capsule Discontinued 500 mg PO TWICE A DAY 8 0 December 23, 2015 12:00am August 17, 2017 10:24am ipratropium bromide 0.042 mg/actuat metered dose nasal spray (3 sources) Anticholinergic Start: 05-31-2024 End: 06-28-2024 Ipratropium Preston 42 mcg (0.06 %) spray,non-aerosol Discontinued 2 NMA INTRANASAL THREE TIMES A DAY May 31, 2024 1:00am June 28, 2024 10:01am administer into each nostril lisinopril 20 mg oral tablet (20 sources) Angiotensin Converting Enzyme Inhibitor Start: 02-15-2014 End: 09-11-2024 take 1 tablet by mouth once daily Lisinopril 20 mg tablet Discontinued 20 mg PO DAILY 90 3 September 15, 2023 2:31pm March 08, 2024 9:22am Comment on above: [...] TABS one tablet every five days. MELOXICAM [id number] Timo Araiza MD Start: 02-15-2014 take 1 tablet by juany th once daily MELOXICAM 7.5 MG TABS One tablet by mouth daily MELOXICAM [id number] Joanna Falcon RN MULTIPLE VITAMIN (4 sources) Start: 02-15-2014 take 1 tablet by mouth once daily MULTIVITAMINS CAPS One tablet by mouth daily MULTIPLE VITAMIN [id number] Joanna Falcon RN MULTIPLE VITAMIN (2 sources) Start: 02-15-2014 take 1 tablet by mouth once daily MULTIVITAMINS CAPS One tablet by mouth daily MULTIPLE VITAMIN [id number] Joanna Falcon RN Start: 02-15-2014 take 1 tablet by juany th once daily MULTIVITAMINS CAPS One tablet by mouth daily MULTIPLE VITAMIN [id number] Joanna Falcon RN Multivitamin With Folic Acid 1 TABLET tablet (3 sources) Start: 03-21-2014 End: 01-21-2022 take 1 tablet [...] capsule,delayed release(DR/EC) Discontinued 20 mg PO DAILY 90 3 April 12, 2023 3:48pm May 07, 2023 3:39am Start: 02-15-2014 take 1 tablet by juany th once daily [facility] OMEPRAZOLE 20 MG TBEC One tablet by mouth daily OMEPRAZOLE [id number] Marjorie Jenkins PA-C Start: 02-15-2014 take 1 tablet by juany th once daily [facility] OMEPRAZO[facility] 20 MG TBEC One tablet by mouth daily OMEPRAZOLE [id number] Marjorie Jenkins PA-C Comment on above: Take 20 mg by mouth once daily. simvastatin 20 mg oral tablet (20 sources) HMG-CoA Reductase Inhibitor Start: End: take 1 tablet by mouth at bedtime Simvastatin 20 mg tablet Discontinued 20 mg PO AT BEDTIME 90 4 September 15, 2023 2:32pm September 11, 2024 11:01am Comment on above: Take 20 mg by mouth. Problems Active Problems Problem Classification Problem Date Documented Da te Episodic/Chronic Abdominal pain (3 sources) Pain in female pelvis; Translations: [Pelvic and perineal pain] Onset: 05-31-2024 05-28-2024 Episodic Benign neoplasm of uterus (6 sources) Uterine leiomyoma; Translations: [Leiomyoma of uterus, unspecified] Onset: 06-18-2005 Resolved: 09-22-2012 09-22-2012 Episodic Cardiac dysrhythmias (3 sources) Palpitations; Translations: [Palpitations] 03-08-2024 Episodic Coronary atherosclerosis and other heart disease (20 sources) Coronary atherosclerosis; Translations: [Atherosclerotic heart disease of sioux coronary artery without angina pectoris] Onset: 05-01-2024 Chronic Deficiency and other anemia (4 sources) [...] (HPV)] 05-28-2024 Episodic Other connective tissue disease (5 sources) Pain in left lower limb; Translations: [...] other cardiovascular function study] Onset: 05-28-2024 Episodic Phlebitis; thrombophlebitis and thromboembolism (8 sources) H/O: Deep vein thrombosis; Translations: [Personal history of other venous thrombosis and embolism] 09-07-2023 Episodic Rheumatoid arthritis and related disease (2 sources) Rheumatoid arthritis, unspecified; Translations: [Inflammatory polyarthropathy] Onset: 02-04-2025 Chronic Unclassified (6 sources) Aftercare ; Translations: [Encounter for other specified surgical aftercare] Onset: 12-29-2015 12-30-2015 Past or Other Problems Problem Classification Problem Date Documented Date Episodic/Chronic Aortic and peripheral arterial embolism or thrombosis (4 sources) Vascular disorder; Translations: [Embolism and thrombosis of unspecified artery] Onset: 07-12-2006 Resolved: 09-22-2012 09-22-2012 Chronic Menstrual disorders (4 sources) Irregular periods; Translations: [Irregular menstruation, unspecified] Onset: 06-18-2005 Resolved: 09-22-2012 09-22-2012 Chronic Nonspecific chest pain (20 sources) Precordial pain; Translations: [Precordial pain] Onset: 02-15-2014 02-15-2014 Episodic Other aftercare (12 sources) Long-term (current) use of other medications; Translations: [Other jail (current) drug therapy] Onset: 03-22-2014 Resolved: 11-25-2014 11-25-2014 Episodic Other aftercare (2 sources) Other vehicle dynamics engineer (current) drug therapy; Translations: [Other vehicle dynamics engineer (current) drug therapy] Onset: 11-25-2014 11-25-2014 Episodic [...] Test Name Value Interpretation Reference Range Facility HIP, UNI W/ Pelvis 2-3 Views on 03-19-2025 HIP, UNI W/ Pelvis 2-3 Views [facility] Services [address] [place], [place] [id number] HIP, UNI W/ Pelvis 2-3 Views MR#: [id number] Acct: [id number] Name: SERAFIN PRUETT Rep #: [id number] : 1960 F 65 From: Rashaad Dougherty MD PCP: Dr. Obinna Cochran MD Status: REG CLI Study: HIP, UNI W/ Pelvis 2-3 Views Date of Exam: 09/07 Exam# [id number] Ordering Dr: Obinna Cochran PROCEDURE: HIP, UNI W/ PELVIS 2-3 VIEWS 03/19/2025 REASON FOR EXAM: R HIP PAIN TECHNIQUE: Procedure Code: RADHP Modality: DX Procedure: HIP, UNI W/ PELVIS 2-3 VIEWS Laterality: FINDINGS: No evidence of acute fracture or dislocation. Joint spaces are maintained. 5.4 cm calcified lesion within the pelvis likely representing a fibroid. RAD/HIP, UNI W/ Pelvis 2-3 Views IMPRESSION: No acute osseous abnormalities. Uterine fibroid. Reading Location: [facility] CC: Dr. Obinna Cochran MD Middle Card Tender: Signed Normal [facility] Absolute lymphocyte countOrd ered By: Sonia Schmidt on 01-18-2025 Lymphocytes Auto (Unsp spec) [#/Vol] 1.05 10*3/uL 0.83-4.51 [facility] Absolute neutrophil countOrd ered By: Sonia Schmidt on 01-18-2025 Neutrophils (Bld) [#/Vol] 4.4 10*3/uL 2.0-7.7 [facility] Anion gap in Serum or Plasma Ordered By: Sonia Schmidt on 01-18-2025 Anion gap [Moles/Vol] 10 mmol/L 5-15 [facility] Automated blood erythrocyte countOrdered By: Sonia Schmidt on 01-18-2025 RBC (Bld) [#/Vol] 4.00 10*6/uL Low 4.2-5.4 [facility] Comment on above: Performed By: #### L 100.0100, L500.4103 ####[facility] [address] [place], [place], [id number] Automated blood hematocrit ( percentage)Ordered By: Sonia Schmidt on 01-18-2025 Hematocrit (Bld) [Volume fraction] 36.7 % Low 37-47 [facility] Comment on above: Performed By: #### L 100.0100, L500.4050 ####[facility] [address] [place], [address] Automated lymphocyte count a s percentage of total leukocytesOrdered By: Sonia Schmidt on 01-18-2025 Lymphocytes/100 WBC Auto (Unsp spec) 16.2 % Low 19-41 [facility] BUN/creatinine ratioOrdered By: Sonia Schmidt on 01-18-2025 Urea nitrogen/Creatinine [Mass ratio] 22.3 mg/mg High 10-20 [facility] Basophil percentageOrdered B y: Sonia Schmidt on 01-18-2025 Basophils/100 WBC (Bld) 0.8 % Normal 0-[address] [facility] Comment on above: Performed By: #### L 100.0100, L500.4050 ####[facility] [address] [place], [address] Bilirubin, totalOrdered By: Sonia Schmidt on 01-18-2025 Bilirubin [Mass/Vol] 0.23 mg/dL 0.00-1.30 [facility] CBC W/Diff, Automatedon Absolute Lymph 1.05 X10 3/uL Normal 0.83-4.51 [facility] Comment on above: Performed By: #### L 100.0100, L500.4050 ####[facility] [address] [place], [address] Absolute Neut 4.4 X10 3/uL Normal 2.0-7.7 [facility] Comment on above: Performed By: #### L 100.0100, L500.4050 ####[facility] [address] [place], [address] IG% 0.600 Normal 0.0-0.9 [facility] Comment on above: Result Comment: IG% - Immature Granulocytes (promyelocytes, myelocytes and metamyelocytes) > 1% indicates that a LEFT SHIFT is Present. Performed By: #### L 100.0100, L500.4050 ####[facility] [address] [place], [address] Lymphocytes/100 WBC (Bld) 16.2 % Low 19-41 [facility] Comment on above: Performed By: #### L 100.0100, L500.4050 ####[facility] [address] [place], [address] Nucleated RBC (Bld) [#/Vol] 0 10*3/uL Normal 0-5 [facility] Comment on above: Performed By: #### L 100.0100, L500.4050 ####[facility] [address] [place], [address] RDW SD 42.4 fl Normal 35.1-43.9 [facility] Comment on above: Performed By: #### L 100.0100, L500.4050 ####[facility] [address] [place], [address] Carbon dioxide, total [Moles /volume] in Central venous bloodOrdered By: Sonia Schmidt on 01-18-2025 CO2 [Moles/Vol] 26.7 mmol/L 21.0-32.0 [facility] Chloride assayOrdered By: Demarcus Shcmidt on 01-18-2025 Chloride [Moles/Vol] 103 mmol/L 98-108 [facility] Comprehensive Metabolic Prof ilon 01-18-2025 Albumin [Mass/Vol] 3.5 g/dL Normal 3.4-4.8 [facility] Comment on above: Performed By: #### L 100.0100, L500.4050 ####[facility] [address] [place], [address] Albumin/Globulin [Mass ratio] 1.3 {ratio} Normal 0.9-2.4 [facility] Comment on above: Performed By: #### L 100.0100, L500.4050 ####[facility] [address] [place], [address] ALK PHOS 103 U/L Normal 35-104 [facility] Comment on above: Performed By: #### L 100.0100, L500.4050 ####[facility] [address] [place], [address] ALT [Catalytic activity/Vol] 27 U/L Normal <=34 [facility] Comment on above: Performed By: #### L 100.0100, L500.4050 ####[facility] [address] [place], [address] AST [Catalytic activity/Vol] 37 U/L High <=31 [facility] Comment on above: Performed By: #### L 100.0100, L500.4050 ####[facility] [address] [place], [address] Bilirubin [Mass/Vol] 0.23 mg/dL Normal 0.00-1.30 [facility] Comment on above: Performed By: #### L 100.0100, L500.4050 ####[facility] [address] [place], [address] BUN/CRE 22.3 RATIO High 10-20 [facility] Comment on above: Performed By: #### L 100.0100, L500.4050 ####[facility] [address] [place], [address] Calcium [Mass/Vol] 9.5 mg/dL Normal 7.6-11.0 [facility] Comment on above: Performed By: #### L 100.0100, L500.4050 ####[facility] [address] [place], [address] Chloride [Moles/Vol] 103 mmol/L Normal 98-108 [facility] Comment on above: Performed By: #### L 100.0100, L500.4050 ####[facility] [address] [place], [address] CO2 [Moles/Vol] 26.7 mmol/L Normal 21.0-32.0 [facility] Comment on above: Performed By: #### L 100.0100, L500.4050 ####[facility] [address] [place], [address] Creatinine [Mass/Vol] 0.65 mg/dL Low 0.70-1.20 [facility] Comment on above: Performed By: #### L 100.0100, L500.4050 ####[facility] [address] [place], [address] GAP 10 Normal 5-15 [facility] Comment on above: Performed By: #### L 100.0100, L500.4050 ####[facility] [address] [place], [address] GFR/1.73 sq M.predicted among non-blacks MDRD (S/P/Bld) [Vol rate/Area] 99 mL/min/{1.73_m2} Normal >60 [facility] Comment on above: Result Comment: mL/m in/1.73m2 CKD-EPI Creatinine Equation (2020) Performed By: #### L 100.0100, L500.4050 ####[facility] [address] [place], [address] Globulin (S) [Mass/Vol] 2.7 g/dL Normal 2.2-4.2 [facility] Comment on above: Performed By: #### L 100.0100, L500.4050 ####[facility] [address] [place], [address] Glucose [Mass/Vol] 90 mg/dL Normal 70-99 [facility] Comment on above: Performed By: #### L 100.0100, L500.4050 ####[facility] [address] [place], [address] Potassium [Moles/Vol] 3.7 mmol/L Normal 3.3-5.1 [facility] Comment on above: Performed By: #### L 100.0100, L500.4050 ####[facility] [address] [place], [address] Sodium [Moles/Vol] 140 mmol/L Normal 133-145 [facility] Comment on above: Performed By: #### L 100.0100, L500.4050 ####[facility] [address] [place], [address] T PROT 6.2 g/dL Normal 5.9-8.4 [facility] Comment on above: Performed By: #### L 100.0100, L500.4050 ####[facility] [address] [place], [address] Urea nitrogen [Mass/Vol] 15 mg/dL Normal 4-19 [facility] Comment on above: Performed By: #### L 100.0100, L500.4050 ####[facility] [address] [place], [address] Eosinophil percentageOrdered By: Sonia Schmidt on 01-18-2025 Eosinophils/100 WBC (Bld) 4.9 % Normal 0-5 [facility] Comment on above: Performed By: #### L 100.0100, L500.4050 ####[facility] [address] [place], [address] Erythrocyte distribution wid th ratioOrdered By: Sonia Schmidt on 01-18-2025 Erythrocyte distribution width (RBC) [Ratio] 12.6 % Normal 11.6-14.6 [facility] Comment on above: Performed By: #### L 100.0100, L500.4050 ####[facility] [address] [place], [address] Erythrocyte distribution wid th standard deviationOrdered By: Sonia Schmidt on 01-18-2025 Erythrocyte distribution width (RBC) [Ratio] 42.4 fl 35.1-43.9 [facility] Glomerular filtration rate ( GFR) estimation/1.73 sq m using serum, plasma, or whole bOrdered By: Sonia Schmidt on 01-18-2025 GFR/1.73 sq M.predicted among non-blacks MDRD (S/P/Bld) [Vol rate/Area] 99 mL/min/{1.73_m2} >60 [facility] Comment on above: mL/min/1.73m2 CKD-EP I Creatinine Equation (2020) Hemoglobin measurementOrdere d By: Sonia Schmidt on 01-18-2025 Hemoglobin (Bld) [Mass/Vol] 12.5 g/dL Normal 12.0-15.0 [facility] Comment on above: Performed By: #### L 100.0100, L500.4050 ####[facility] [address] [place], [address] Immature granulocytes/100 WB C Auto (Bld)Ordered By: Sonia Schmidt on 01-18-2025 Immature granulocytes/100 WBC (Bld) 0.600 % 0.0-0.9 [facility] Comment on above: IG% - Immature Granu locytes (promyelocytes, myelocytes and metamyelocytes) > 1% indicates that a LEFT SHIFT is Present. Laboratory - Chemistry and C hemistry - challengeOrdered By: Sonia Schmidt on 01-18-2025 AST [Catalytic activity/Vol] 37 U/L High <32 [facility] MCV (mean corpuscular volume ) determinationOrdered By: Sonia Schmidt on 01-18-2025 MCV (RBC) [Entitic vol] 91.8 fL Normal 81-[address] [facility] Comment on above: Performed By: #### L 100.0100, L500.4050 ####[facility] [address] [place], [address] Mean corpuscular hemoglobin (MCH) determinationOrdered By: Sonia Schmidt on 01-18-2025 MCH (RBC) [Entitic mass] 31.3 pg Normal 27.0-32.0 [facility] Comment on above: Performed By: #### L 100.0100, L500.4050 ####[facility] [address] [place], [address] Mean corpuscular hemoglobin concentration (MCHC) determinationOrdered By: Sonia Schmidt on 01-18-2025 MCHC (RBC) [Mass/Vol] 34.1 g/dL Normal 32-36 [facility] Comment on above: Performed By: #### L 100.0100, L500.4050 ####[facility] [address] [place], [address] Mean platelet volume determi nationOrdered By: Sonia Schmidt on 01-18-2025 Platelet mean volume (Bld) [Entitic vol] 10.0 fL Normal 6.2-12.0 [facility] Comment on above: Performed By: #### L 100.0100, L500.4050 ####[facility] [address] [place], [address] Monocyte percentageOrdered B y: Sonia Schmidt on 01-18-2025 Monocytes/100 WBC (Bld) 9.7 % Normal 0-[address] [facility] Comment on above: Performed By: #### L 100.0100, L500.4050 ####[facility] [address] [place], [address] Neutrophil percentageOrdered By: Soniamegan Schmidt on 01-18-2025 Neutrophils/100 WBC (Bld) 67.8 % Normal 47-70 [facility] Comment on above: Performed By: #### L 100.0100, L500.4050 ####[facility] [address] [place], [address] Nucleated red blood cell per centageOrdered By: Sonia Schmidt on 01-18-2025 Nucleated RBC/100 WBC (Bld) [Ratio] 0 % 0-5 [facility] Platelet countOrdered By: Demarcus Schmidt on 01-18-2025 Platelets (Bld) [#/Vol] 317 10*3/uL Normal 150-450 [facility] Comment on above: Performed By: #### L 100.0100, L500.4050 ####[facility] [address] [place], [address] Potassium measurement (mass/ volume)Ordered By: Sonia Schmidt on 01-18-2025 Potassium (Unsp spec) [Mass/Vol] 3.7 mmol/L 3.3-5.1 [facility] Serum creatinine measurement (mass/volume)Ordered By: Sonia Schmidt on 01-18-2025 Creatinine [Mass/Vol] 0.65 mg/dL Low 0.70-1.20 [facility] Serum globulin measurementOr dered By: Sonia Schmidt on 01-18-2025 Globulin (S) [Mass/Vol] 2.7 g/dL 2.2-4.2 [facility] Serum glucose measurement (m ass/volume)Ordered By: Sonia Schmidt on 01-18-2025 Glucose [Mass/Vol] 90 mg/dL 70-99 [facility] Serum or plasma alanine bone otransferase (ALT) measurementOrdered By: Sonia Schmidt on 01-18-2025 ALT [Catalytic activity/Vol] 27 U/L <35 [facility] Serum or plasma albumin jac urement (mass/volume)Ordered By: Sonia Schmidt on 01-18-2025 Albumin [Mass/Vol] 3.5 g/dL 3.4-4.8 [facility] Serum or plasma albumin/glob ulin mass ratioOrdered By: Sonia Schmidt on 01-18-2025 Albumin/Globulin [Mass ratio] 1.3 {ratio} 0.9-2.4 [facility] Serum or plasma alkaline john sphatase measurementOrdered By: Sonia Schmidt on 01-18-2025 ALP [Catalytic activity/Vol] 103 U/L 35-104 [facility] Serum or plasma calcium jac urement (mass/volume)Ordered By: Sonia Schmidt on 01-18-2025 Calcium [Mass/Vol] 9.5 mg/dL 7.6-11.0 [facility] Serum or plasma urea nitroge n measurement (mass/volume)Ordered By: Sonia Schmidt on 01-18-2025 Urea nitrogen [Mass/Vol] 15 mg/dL 4-19 [facility] Sodium levelOrdered By: Ada Schmidt on 01-18-2025 Sodium [Moles/Vol] 140 mmol/L 133-145 [facility] Total proteinOrdered By: Markie Schmidt on 01-18-2025 Protein [Mass/Vol] 6.2 g/dL 5.9-8.4 [facility] White blood cell (WBC) count Ordered By: Sonia Schmidt on 01-18-2025 WBC (Bld) [#/Vol] 6.5 10*3/uL Normal 4.4-11.0 [facility] Comment on above: Performed By: #### L 100.0100, L500.4050 ####[facility] [address] [place], [address] Comprehensive Metabolic Prof [facility] 10-30-2024 Albumin [Mass/Vol] 3.7 g/dL Normal 3.4-4.8 [facility] Comment on above: Performed By: #### L 100.0100, L500.4050 #### [facility] [address] [place], [address] Albumin/Globulin [Mass ratio] 1.6 {ratio} Normal 0.9-2.4 [facility] Comment on above: Performed By: #### L 100.0100, L500.4050 #### [facility] [address] [place], [address] ALK PHOS 112 U/L High 35-104 [facility] Comment on above: Performed By: #### L 100.0100, L500.4050 #### [facility] [address] [place], [address] ALT [Catalytic activity/Vol] 24 U/L Normal <=34 [facility] Comment on above: Performed By: #### L 100.0100, L500.4050 #### [facility] [address] [place], [address] AST [Catalytic activity/Vol] 36 U/L High <=31 [facility] Comment on above: Performed By: #### L 100.0100, L500.4050 #### [facility] [address] [place], [address] Bilirubin [Mass/Vol] 0.29 mg/dL Normal 0.00-1.30 [facility] Comment on above: Performed By: #### L 100.0100, L500.4050 #### [facility] [address] [place], [address] BUN/CRE 18.4 RATIO Normal 10-20 [facility] Comment on above: Performed By: #### L 100.0100, L500.4050 #### [facility] [address] [place], [address] Calcium [Mass/Vol] 9.1 mg/dL Normal 7.6-11.0 [facility] Comment on above: Performed By: #### L 100.0100, L500.4050 #### [facility] [address] [place], [address] Chloride [Moles/Vol] 103 mmol/L Normal 98-108 [facility] Comment on above: Performed By: #### L 100.0100, L500.4050 #### [facility] [address] [place], [address] CO2 [Moles/Vol] 26.1 mmol/L Normal 21.0-32.0 [facility] Comment on above: Performed By: #### L 100.0100, L500.4050 #### [facility] [address] [place], [address] Creatinine [Mass/Vol] 0.67 mg/dL Low 0.70-1.20 [facility] Comment on above: Performed By: #### L 100.0100, L500.4050 #### [facility] [address] [place], [address] GAP 11 Normal 5-15 [facility] Comment on above: Performed By: #### L 100.0100, L500.4050 #### [facility] [address] [place], [address] GFR/1.73 sq M.predicted among non-blacks MDRD (S/P/Bld) [Vol rate/Area] 98 mL/min/{1.73_m2} Normal >60 [facility] Comment on above: Result Comment: mL/m in/1.73m2 CKD-EPI Creatinine Equation (2020) Performed By: #### L 100.0100, L500.4050 #### [facility] [address] [place], [address] Globulin (S) [Mass/Vol] 2.4 g/dL Normal 2.2-4.2 [facility] Comment on above: Performed By: #### L 100.0100, L500.4050 #### [facility] [address] [place], [address] Glucose [Mass/Vol] 85 mg/dL Normal 70-99 [facility] Comment on above: Performed By: #### L 100.0100, L500.4050 #### [facility] [address] [place], [address] Potassium [Moles/Vol] 3.7 mmol/L Normal 3.3-5.1 [facility] Comment on above: Performed By: #### L 100.0100, L500.4050 #### [facility] [address] [place], [address] Sodium [Moles/Vol] 141 mmol/L Normal 133-145 [facility] Comment on above: Performed By: #### L 100.0100, L500.4050 #### [facility] [address] [place], [address] T PROT 6.1 g/dL Normal 5.9-8.4 [facility] Comment on above: Performed By: #### L 100.0100, L500.4050 #### [facility] [address] [place], [address] Urea nitrogen [Mass/Vol] 12 mg/dL Normal 4-19 [facility] Comment on above: Performed By: #### L 100.0100, L500.4050 #### [facility] [address] [place], [address] Absolute lymphocyte countOrd ered By: Sonia Schmidt on 10-29-2024 Lymphocytes Auto (Unsp spec) [#/Vol] 1.28 10*3/uL 0.83-4.51 [facility] Absolute neutrophil countOrd ered By: Sonia Schmidt on 10-29-2024 Neutrophils (Bld) [#/Vol] 4.0 10*3/uL 2.0-7.7 [facility] Anion gap in Serum or Plasma Ordered By: Sonia Schmidt on 10-29-2024 Anion gap [Moles/Vol] 11 mmol/L 5-15 [facility] Automated lymphocyte count a s percentage of total leukocytesOrdered By: Sonia Schmidt on 10-29-2024 Lymphocytes/100 WBC Auto (Unsp spec) 20.9 % - [facility] BUN/creatinine ratioOrdered By: Sonia Schmidt on 10-29-2024 Urea nitrogen/Creatinine [Mass ratio] 18.4 mg/mg 10-20 [facility] Basophil percentageOrdered B y: Sonia Schmidt on 10-29-2024 Basophils/100 WBC (Bld) 0.7 % 0-[address] [facility] Bilirubin, totalOrdered By: Sonia Schmidt on 10-29-2024 Bilirubin [Mass/Vol] 0.29 mg/dL 0.00-1.30 [facility] CBC W/Diff, Automatedon 10-14 Absolute Lymph 1.28 X10 3/uL Normal 0.83-4.51 [facility] Comment on above: Performed By: #### L 100.0100, L500.4050 #### [facility] [address] [place], [address] Absolute Neut 4.0 X10 3/uL Normal 2.0-7.7 [facility] Comment on above: Performed By: #### L 100.0100, L500.4050 #### [facility] [address] [place], [address] Basophils/100 WBC (Bld) 0.7 % Normal 0-[address] [facility] Comment on above: Performed By: #### L 100.0100, L500.4050 #### [facility] [address] [place], [address] Eosinophils/100 WBC (Bld) 6.2 % High 0-5 [facility] Comment on above: Performed By: #### L 100.0100, L500.4050 #### [facility] [address] [place], [address] Erythrocyte distribution width (RBC) [Ratio] 12.5 % Normal 11.6-14.6 [facility] Comment on above: Performed By: #### L 100.0100, L500.4050 #### [facility] [address] [place], [address] Hematocrit (Bld) [Volume fraction] 39.2 % Normal 37-47 [facility] Comment on above: Performed By: #### L 100.0100, L500.4050 #### [facility] [address] [place], [address] Hemoglobin (Bld) [Mass/Vol] 13.2 g/dL Normal 12.0-15.0 [facility] Comment on above: Performed By: #### L 100.0100, L500.4050 #### [facility] [address] [place], [address] IG% 0.300 Normal 0.0-0.9 [facility] Comment on above: Result Comment: IG% - Immature Granulocytes (promyelocytes, myelocytes and metamyelocytes) > 1% indicates that a LEFT SHIFT is Present. Performed By: #### L 100.0100, L500.4050 #### [facility] [address] [place], [address] Lymphocytes/100 WBC (Bld) 20.9 % Normal 19-41 [facility] Comment on above: Performed By: #### L 100.0100, L500.4050 #### [facility] [address] [place], [address] MCH (RBC) [Entitic mass] 31.4 pg Normal 27.0-32.0 [facility] Comment on above: Performed By: #### L 100.0100, L500.4050 #### [facility] [address] [place], [address] MCHC (RBC) [Mass/Vol] 33.7 g/dL Normal 32-36 [facility] Comment on above: Performed By: #### L 100.0100, L500.4050 #### [facility] [address] [place], [address] MCV (RBC) [Entitic vol] 93.3 fL Normal 81-99 [facility] Comment on above: Performed By: #### L 100.0100, L500.4050 #### [facility] [address] [place], [address] Monocytes/100 WBC (Bld) 7.0 % Normal 0-[address] [facility] Comment on above: Performed By: #### L 100.0100, L500.4050 #### [facility] [address] [place], [address] Neutrophils/100 WBC (Bld) 64.9 % Normal 47-70 [facility] Comment on above: Performed By: #### L 100.0100, L500.4050 #### [facility] [address] [place], [address] Nucleated RBC (Bld) [#/Vol] 0 10*3/uL Normal 0-5 [facility] Comment on above: Performed By: #### L 100.0100, L500.4050 #### [facility] [address] [place], [address] Platelet mean volume (Bld) [Entitic vol] 10.3 fL Normal 6.2-12.0 [facility] Comment on above: Performed By: #### L 100.0100, L500.4050 #### [facility] [address] [place], [address] Platelets (Bld) [#/Vol] 279 10*3/uL Normal 150-450 [facility] Comment on above: Performed By: #### L 100.0100, L500.4050 #### [facility] [address] [place], [address] RBC (Bld) [#/Vol] 4.20 10*6/uL Normal 4.2-5.4 [facility] Comment on above: Performed By: #### L 100.0100, L500.4050 #### [facility] [address] [place], [address] RDW SD 42.7 fl Normal 35.1-43.9 [facility] Comment on above: Performed By: #### L 100.0100, L500.4050 #### [facility] [address] [facility] [place], [address] WBC (Bld) [#/Vol] 6.1 10*3/uL Normal 4.4-11.0 [facility] Comment on above: Performed By: #### L 100.0100, L500.4050 #### [facility] [address] [facility] [place], [address] Carbon dioxide, total [Moles /volume] in Central venous bloodOrdered By: Sonia Schmidt on 10-29-2024 CO2 [Moles/Vol] 26.1 mmol/L 21.0-32.0 [facility] Chloride assayOrdered By: Demarcus Schmidt on 10-29-2024 Chloride [Moles/Vol] 103 mmol/L 98-108 [facility] Coronary Angiography CTon Coronary Angiography CT [facility] Imaging Services [address] [place] [address] 10/29/24 1838 MR#: [id number] Acct: [id number] Name: SERAFIN PRUETT Rep #: [id number] : 1960 64 From: Keith Mccray MD PCP: Dr. Pam Dickinson MD Status:REG REF Y Location: CT Calcium Scoring Date of Study:: 10/12/24 Indications Indications: Coronary Calcium Scoring: High-resolution Computed Tomographic imaging of the chest was performed on [10/12/24 ], with particular attention paid to the coronary arteries. Images from the examination were analyzed for the presence and extent of coronary artery calcification , using coronary calcium quantification software. The patient tolerated the procedure well and there were no complications. The results of the coronary calcification analysis are provided below. Findings Coronary Artery Left Main (LM): 0 Left Anterior Descending (LAD): 142 Left Circumflex (LCX): 18 Right Coronary Artery (RCA): 107 Total Agatston Score: 267 Percentile Ranking: Greater than 90th percentile Calcium Scoring Interpretation: Different methods to categorize the overall amount of coronary plaque. Overall amount CAC SIS Visual of coronary plaque P1 Mild -100 <2 1-2 vessels with mild amount of plaque P2 Moderate 101-300 3-4 1-2 vessels with moderate amount, 3 vessels with mild amount of plaque P3 Severe 301-999 5-7 3 vessels with moderate amount, 1 vessel with severe amount of plaque P4 Extensive >1000 >8 2-3 vessels with severe amount of plaque Calcium Score: Moderate: 1-2 vessels w/moderate amt, 3 vessels w/mild amt of plaque Conclusion: 1-2 vessel atherosclerotic plaquing noted. Premature coronary disease present. 10/29/241838 Date Keith Mccray MD Cosigner Signature (if applicable): Date CC: Dr. Pam Dickinson MD; Dr. Keith Mccray MD Signed Normal [facility] Eosinophil percentageOrdered By: Sonia Schmidt on 10-29-2024 Eosinophils/100 WBC (Bld) 6.2 % High 0-5 [facility] Erythrocyte distribution wid th ratioOrdered By: Sonia Schmidt on 10-29-2024 Erythrocyte distribution width (RBC) [Ratio] 12.5 % 11.6-14.6 [facility] Erythrocyte distribution wid th standard deviationOrdered By: Sonia Schmidt on 10-29-2024 Erythrocyte distribution width (RBC) [Ratio] 42.7 fl 35.1-43.9 [facility] Glomerular filtration rate ( GFR) estimation/1.73 sq m using serum, plasma, or whole bOrdered By: Sonia Schmidt on 10-29-2024 GFR/1.73 sq M.predicted among non-blacks MDRD (S/P/Bld) [Vol rate/Area] 98 mL/min/{1.73_m2} >60 [facility] Comment on above: mL/min/1.73m2 CKD-EP I Creatinine Equation (2020) Hematocrit Auto (Bld) [Volum e fraction]Ordered By: Sonia Schmidt on 10-29-2024 Hematocrit (Bld) [Volume fraction] 39.2 % 37-47 [facility] Hemoglobin measurementOrdere d By: Sonia Schmidt on 10-29-2024 Hemoglobin (Bld) [Mass/Vol] 13.2 g/dL 12.0-15.0 [facility] Immature granulocytes/100 WB C Auto (Bld)Ordered By: Sonia Schmidt on 10-29-2024 Immature granulocytes/100 WBC (Bld) 0.300 % 0.0-0.9 [facility] Comment on above: IG% - Immature Granu locytes (promyelocytes, myelocytes and metamyelocytes) > 1% indicates that a LEFT SHIFT is Present. Laboratory - Chemistry and C hemistry - challengeOrdered By: Sonia Schmidt on 10-29-2024 AST [Catalytic activity/Vol] 36 U/L High <32 [facility] MCV (mean corpuscular volume ) determinationOrdered By: Sonia Schmidt on 10-29-2024 MCV (RBC) [Entitic vol] 93.3 fL 81-[address] [facility] Mean corpuscular hemoglobin (MCH) determinationOrdered By: Sonia Schmidt on 10-29-2024 MCH (RBC) [Entitic mass] 31.4 pg 27.0-32.0 [facility] Mean corpuscular hemoglobin concentration (MCHC) determinationOrdered By: Sonia Schmidt on 10-29-2024 MCHC (RBC) [Mass/Vol] 33.7 g/dL 32-36 [facility] Mean platelet volume determi nationOrdered By: Sonia Schmidt on 10-29-2024 Platelet mean volume (Bld) [Entitic vol] 10.3 fL 6.2-12.0 [facility] Monocyte percentageOrdered B y: Sonia Schmidt on 10-29-2024 Monocytes/100 WBC (Bld) 7.0 % 0-[address] [facility] Neutrophil percentageOrdered By: Sonia Schmidt on 10-29-2024 Neutrophils/100 WBC (Bld) 64.9 % 47-70 [facility] Nucleated red blood cell per centageOrdered By: Sonia Schmidt on 10-29-2024 Nucleated RBC/100 WBC (Bld) [Ratio] 0 % 0-5 [facility] Platelet countOrdered By: Demarcus Schmidt on 10-29-2024 Platelets (Bld) [#/Vol] 279 10*3/uL 150-450 [facility] Potassium measurement (mass/ volume)Ordered By: Sonia Schmidt on 10-29-2024 Potassium (Unsp spec) [Mass/Vol] 3.7 mmol/L 3.3-5.1 [facility] RBC Auto (Bld) [#/Vol]Ordere d By: Sonia Schmidt on 10-29-2024 RBC (Bld) [#/Vol] 4.20 10*6/uL 4.2-5.4 [facility] Serum creatinine measurement (mass/volume)Ordered By: Sonia Schmidt on 10-29-2024 Creatinine [Mass/Vol] 0.67 mg/dL Low 0.70-1.20 [facility] Serum globulin measurementOr dered By: Sonia Schmidt on 10-29-2024 Globulin (S) [Mass/Vol] 2.4 g/dL 2.2-4.2 [facility] Serum glucose measurement (m ass/volume)Ordered By: Sonia Schmidt on 10-29-2024 Glucose [Mass/Vol] 85 mg/dL 70-99 [facility] Serum or plasma alanine bone otransferase (ALT) measurementOrdered By: Sonia Schmidt on 10-29-2024 ALT [Catalytic activity/Vol] 24 U/L <35 [facility] Serum or plasma albumin jac urement (mass/volume)Ordered By: Sonia Schmidt on 10-29-2024 Albumin [Mass/Vol] 3.7 g/dL 3.4-4.8 [facility] Serum or plasma albumin/glob ulin mass ratioOrdered By: Sonia Schmidt on 10-29-2024 Albumin/Globulin [Mass ratio] 1.6 {ratio} 0.9-2.4 [facility] Serum or plasma alkaline john sphatase measurementOrdered By: Sonia Schmidt on 10-29-2024 ALP [Catalytic activity/Vol] 112 U/L High 35-104 [facility] Serum or plasma calcium jac urement (mass/volume)Ordered By: Sonia Schmidt on 10-29-2024 Calcium [Mass/Vol] 9.1 mg/dL 7.6-11.0 [facility] Serum or plasma urea nitroge n measurement (mass/volume)Ordered By: Sonia Schmidt on 10-29-2024 Urea nitrogen [Mass/Vol] 12 mg/dL 4-19 [facility] Sodium levelOrdered By: Ada Schmidt on 10-29-2024 Sodium [Moles/Vol] 141 mmol/L 133-145 [facility] Total proteinOrdered By: Markie Schmidt on 10-29-2024 Protein [Mass/Vol] 6.1 g/dL 5.9-8.4 [facility] White blood cell (WBC) count Ordered By: Sonia Schmidt on 10-29-2024 WBC (Bld) [#/Vol] 6.1 10*3/uL 4.4-11.0 [facility] Limited Chest CT Cardiac Onl yon 10-12-[address] Cardiac Only [facility] Imaging Services [address] [place] [id number] Cardiac Only MR#: [id number] Acct: [id number] Name: SERAFIN PRUETT Rep #: [id number] : 1960 F 64 From: Robert sesay MD PCP: Dr. Pam Dickinson MD Status: REG REF Study: Limited Chest CT Cardiac Only Date of Exam: Exam# [id number] Ordering Dr: Keith Mccray MD PROCEDURE: LIMITED [...] present The lungs are clear. Reading Location: [place] [address] CC: Dr. Pam Dickinson MD; Dr. Keith Mccray MD Middle Card Tender: Signed Normal [facility] Cardiology Visit Reporton Cardiology Visit Report [facility] [address] [place] [address] OFFICE VISIT Date of Service: 09/11/24 MR#: [id number] Acct: [id number] Name: SERAFIN PRUETT Rep #: [id number] : 1960 Provider: Dr. Keith Mccray MD Age/Sex: 64/F Location: [facility] [place] Status: Signed HPI HPI History of Present Illness Details: Mrs. No is a very pleasant 64 year-old female who presents to the office today for a cardiovascular visit. She has a history of nonobstructive coronary artery disease, hypertension, hyperlipidemia, diffuse arthritis on Plaquenil. 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 Normal [facility] Absolute lymphocyte countOrd ered By: Sonia Schmidt on 07-27-2024 Lymphocytes Auto (Unsp spec) [#/Vol] 1.32 10*3/uL 0.83-4.51 [facility] Absolute neutrophil countOrd ered By: Sonia Schmidt on 07-27-2024 Neutrophils (Bld) [#/Vol] 4.1 10*3/uL 2.0-7.7 [facility] Anion gap in Serum or Plasma Ordered By: Sonia Schmidt on 07-27-2024 Anion gap [Moles/Vol] 10 mmol/L 5-15 [facility] Automated lymphocyte count a s percentage of total leukocytesOrdered By: Sonia Schmidt on 07-27-2024 Lymphocytes/100 WBC Auto (Unsp spec) 20.8 % 19-41 [facility] BUN/creatinine ratioOrdered By: Sonia Schmidt on 07-27-2024 Urea nitrogen/Creatinine [Mass ratio] 19.5 mg/mg 10-20 [facility] Basophil percentageOrdered B y: Sonia Schmidt on 07-27-2024 Basophils/100 WBC (Bld) 0.9 % 0-[address] [facility] Bilirubin, totalOrdered By: Sonia Schmidt on 07-27-2024 Bilirubin [Mass/Vol] 0.26 mg/dL 0.00-1.30 [facility] CBC W/Diff, Automatedon 07-14 Absolute Lymph 1.32 X10 3/uL Normal 0.83-4.51 [facility] Comment on above: Performed By: #### L 500.4050, L100.0100 ####[facility] [address] [place], [address] Absolute Neut 4.1 X10 3/uL Normal 2.0-7.7 [facility] Comment on above: Performed By: #### L 500.4050, L100.0100 ####[facility] [address] [place], [address] Basophils/100 WBC (Bld) 0.9 % Normal 0-[address] [facility] Comment on above: Performed By: #### L 500.4050, L100.0100 ####[facility] [address] [place], [address] Eosinophils/100 WBC (Bld) 4.1 % Normal 0-5 [facility] Comment on above: Performed By: #### L 500.4050, L100.0100 ####[facility] [address] [place], [address] Erythrocyte distribution width (RBC) [Ratio] 12.5 % Normal 11.6-14.6 [facility] Comment on above: Performed By: #### L 500.4050, L100.0100 ####[facility] [address] [place], [address] Hematocrit (Bld) [Volume fraction] 36.7 % Low 37-47 [facility] Comment on above: Performed By: #### L 500.4050, L100.0100 ####[facility] [address] [place], [address] Hemoglobin (Bld) [Mass/Vol] 12.4 g/dL Normal 12.0-15.0 [facility] Comment on above: Performed By: #### L 500.4050, L100.0100 ####[facility] [address] [place], [address] IG% 0.500 Normal 0.0-0.9 [facility] Comment on above: Result Comment: IG% - Immature Granulocytes (promyelocytes, myelocytes and metamyelocytes) > 1% indicates that a LEFT SHIFT is Present. Performed By: #### L 500.4050, L100.0100 ####[facility] [address] [place], [address] Lymphocytes/100 WBC (Bld) 20.8 % Normal 19-41 [facility] Comment on above: Performed By: #### L 500.4050, L100.0100 ####[facility] [address] [place], [address] MCH (RBC) [Entitic mass] 31.5 pg Normal 27.0-32.0 [facility] Comment on above: Performed By: #### L 500.4050, L100.0100 ####[facility] [address] [place], [address] MCHC (RBC) [Mass/Vol] 33.8 g/dL Normal 32-36 [facility] Comment on above: Performed By: #### L 500.4050, L100.0100 ####[facility] [address] [place], [address] MCV (RBC) [Entitic vol] 93.1 fL Normal 81-[address] [facility] Comment on above: Performed By: #### L 500.4050, L100.0100 ####[facility] [address] [place], [address] Monocytes/100 WBC (Bld) 8.8 % Normal 0-[address] [facility] Comment on above: Performed By: #### L 500.4050, L100.0100 ####[facility] [address] [place], [address] Neutrophils/100 WBC (Bld) 64.9 % Normal 47-70 [facility] Comment on above: Performed By: #### L 500.4050, L100.0100 ####[facility] [address] [place], [address] Nucleated RBC (Bld) [#/Vol] 0 10*3/uL Normal 0-5 [facility] Comment on above: Performed By: #### L 500.4050, L100.0100 ####[facility] [address] [place], [address] Platelet mean volume (Bld) [Entitic vol] 9.7 fL Normal 6.2-12.0 [facility] Comment on above: Performed By: #### L 500.4050, L100.0100 ####[facility] [address] [place], [address] Platelets (Bld) [#/Vol] 284 10*3/uL Normal 150-450 [facility] Comment on above: Performed By: #### L 500.4050, L100.0100 ####[facility] [address] [place], [address] RBC (Bld) [#/Vol] 3.94 10*6/uL Low 4.2-5.4 [facility] Comment on above: Performed By: #### L 500.4050, L100.0100 ####[facility] [address] [place], [address] RDW SD 42.9 fl Normal 35.1-43.9 [facility] Comment on above: Performed By: #### L 500.4050, L100.0100 ####[facility] [address] [place], [address] WBC (Bld) [#/Vol] 6.3 10*3/uL Normal 4.4-11.0 [facility] Comment on above: Performed By: #### L 500.4050, L100.0100 ####[facility] [address] [place], [address] Carbon dioxide, total [Moles /volume] in Central venous bloodOrdered By: Sonia Schmidt on 07-27-2024 CO2 [Moles/Vol] 26.3 mmol/L 21.0-32.0 [facility] Chloride assayOrdered By: Demarcus Schmidt on 07-27-2024 Chloride [Moles/Vol] 104 mmol/L 98-108 [facility] Comprehensive Metabolic Prof ilon 07-27-2024 Albumin [Mass/Vol] 3.6 g/dL Normal 3.4-4.8 [facility] Comment on above: Performed By: #### L 500.4050, L100.0100 ####[facility] [address] [place], [address] Albumin/Globulin [Mass ratio] 1.5 {ratio} Normal 0.9-2.4 [facility] Comment on above: Performed By: #### L 500.4050, L100.0100 ####[facility] [address] [place], [address] ALK PHOS 100 U/L Normal 35-104 [facility] Comment on above: Performed By: #### L 500.4050, L100.0100 ####[facility] [address] [place], [address] ALT [Catalytic activity/Vol] 26 U/L Normal <=34 [facility] Comment on above: Performed By: #### L 500.4050, L100.0100 ####[facility] [address] [place], [address] AST [Catalytic activity/Vol] 36 U/L High <=31 [facility] Comment on above: Performed By: #### L 500.4050, L100.0100 ####[facility] [address] [place], [address] Bilirubin [Mass/Vol] 0.26 mg/dL Normal 0.00-1.30 [facility] Comment on above: Performed By: #### L 500.4050, L100.0100 ####[facility] [address] [place], [address] BUN/CRE 19.5 RATIO Normal 10-20 [facility] Comment on above: Performed By: #### L 500.4050, L100.0100 ####[facility] [address] [place], [address] Calcium [Mass/Vol] 9.0 mg/dL Normal 7.6-11.0 [facility] Comment on above: Performed By: #### L 500.4050, L100.0100 ####[facility] [address] [place], [address] Chloride [Moles/Vol] 104 mmol/L Normal 98-108 [facility] Comment on above: Performed By: #### L 500.4050, L100.0100 ####[facility] [address] [place], [address] CO2 [Moles/Vol] 26.3 mmol/L Normal 21.0-32.0 [facility] Comment on above: Performed By: #### L 500.4050, L100.0100 ####[facility] [address] [place], [address] Creatinine [Mass/Vol] 0.73 mg/dL Normal 0.70-1.20 [facility] Comment on above: Performed By: #### L 500.4050, L100.0100 ####[facility] [address] [place], [address] GAP 10 Normal 5-15 [facility] Comment on above: Performed By: #### L 500.4050, L100.0100 ####[facility] [address] [place], [address] GFR/1.73 sq M.predicted among non-blacks MDRD (S/P/Bld) [Vol rate/Area] 93 mL/min/{1.73_m2} Normal >60 [facility] Comment on above: Result Comment: mL/m in/1.73m2 CKD-EPI Creatinine Equation (2020) Performed By: #### L 500.4050, L100.0100 ####[facility] [address] [place], [address] Globulin (S) [Mass/Vol] 2.3 g/dL Normal 2.2-4.2 [facility] Comment on above: Performed By: #### L 500.4050, L100.0100 ####[facility] [address] [place], [address] Glucose [Mass/Vol] 78 mg/dL Normal 70-99 [facility] Comment on above: Performed By: #### L 500.4050, L100.0100 ####[facility] [address] [place], [address] Potassium [Moles/Vol] 4.0 mmol/L Normal 3.3-5.1 [facility] Comment on above: Performed By: #### L 500.4050, L100.0100 ####[facility] [address] [place], [address] Sodium [Moles/Vol] 141 mmol/L Normal 133-145 [facility] Comment on above: Performed By: #### L 500.4050, L100.0100 ####[facility] [address] [place], [address] T PROT 6.0 g/dL Normal 5.9-8.4 [facility] Comment on above: Performed By: #### L 500.4050, L100.0100 ####[facility] [address] [place], [address] Urea nitrogen [Mass/Vol] 14 mg/dL Normal 4-19 [facility] Comment on above: Performed By: #### L 500.4050, L100.0100 ####[facility] [address] [place], [address] Eosinophil percentageOrdered By: Sonia Schmidt on 07-27-2024 Eosinophils/100 WBC (Bld) 4.1 % 0-5 [facility] Erythrocyte distribution wid th ratioOrdered By: Sonia Schmidt on 07-27-2024 Erythrocyte distribution width (RBC) [Ratio] 12.5 % 11.6-14.6 [facility] Erythrocyte distribution wid th standard deviationOrdered By: Sonia Schmidt on 07-27-2024 Erythrocyte distribution width (RBC) [Entitic vol] 42.9 fL 35.1-43.9 [facility] Erythrocyte distribution width (RBC) [Ratio] 42.9 fl 35.1-43.9 [facility] GFR/1.73 sq M.predicted nuno g non-blacks MDRD (S/P/Bld) [Vol rate/Area]Ordered By: Sonia Schmidt on 07-27-2024 Estimated GFR (MDRD) Non-Af Amer 93 >60 [facility] Comment on above: mL/min/1.73m2 CKD-EP I Creatinine Equation (2020) Glomerular filtration rate ( GFR) estimation/1.73 sq m using serum, plasma, or whole bOrdered By: Sonia Schmidt on 07-27-2024 GFR/1.73 sq M.predicted among non-blacks MDRD (S/P/Bld) [Vol rate/Area] 93 mL/min/{1.73_m2} >60 [facility] Comment on above: mL/min/1.73m2 CKD-EP I Creatinine Equation (2020) Hematocrit Auto (Bld) [Volum e fraction]Ordered By: Sonia Schmidt on 07-27-2024 Hematocrit (Bld) [Volume fraction] 36.7 % Low 37-47 [facility] Hemoglobin measurementOrdere d By: Sonia Schmidt on 07-27-2024 Hemoglobin (Bld) [Mass/Vol] 12.4 g/dL 12.0-15.0 [facility] Immature granulocytes/100 WB C Auto (Bld)Ordered By: Sonia Schmidt on 07-27-2024 Immature granulocytes/100 WBC (Bld) 0.500 % 0.0-0.9 [facility] Comment on above: IG% - Immature Granu locytes (promyelocytes, myelocytes and metamyelocytes) > 1% indicates that a LEFT SHIFT is Present. Laboratory - Chemistry and C hemistry - challengeOrdered By: Sonia Schmidt on 07-27-2024 AST [Catalytic activity/Vol] 36 U/L High <32 [facility] Lymphocytes Auto (Unsp spec) [#/Vol]Ordered By: Sonia Schmidt on 07-27-2024 Lymphocytes (Bld) [#/Vol] 1.32 10*3/uL 0.83-4.51 [facility] Lymphocytes/100 WBC Auto (Un sp spec)Ordered By: Sonia Schmidt on 07-27-2024 Lymphocytes/100 WBC (Bld) 20.8 % 19-41 [facility] MCV (mean corpuscular volume ) determinationOrdered By: Sonia Schmidt on 07-27-2024 MCV (RBC) [Entitic vol] 93.1 fL 81-[address] [facility] Mean corpuscular hemoglobin (MCH) determinationOrdered By: Sonia Schmidt on 07-27-2024 MCH (RBC) [Entitic mass] 31.5 pg 27.0-32.0 [facility] Mean corpuscular hemoglobin concentration (MCHC) determinationOrdered By: Sonia Schmidt on 07-27-2024 MCHC (RBC) [Mass/Vol] 33.8 g/dL 32-36 [facility] Mean platelet volume determi nationOrdered By: Sonia Schmidt on 07-27-2024 Platelet mean volume (Bld) [Entitic vol] 9.7 fL 6.2-12.0 [facility] Monocyte percentageOrdered B y: Sonia Schmidt on 07-27-2024 Monocytes/100 WBC (Bld) 8.8 % 0-[address] [facility] Neutrophil percentageOrdered By: Sonia Schmidt on 07-27-2024 Neutrophils/100 WBC (Bld) 64.9 % 47-70 [facility] Nucleated red blood cell per centageOrdered By: Sonia Schmidt on 07-27-2024 Nucleated RBC/100 WBC (Bld) [Ratio] 0 % 0-5 [facility] Platelet countOrdered By: Demarcus Schmidt on 07-27-2024 Platelets (Bld) [#/Vol] 284 10*3/uL 150-450 [facility] Potassium (Unsp spec) [Mass/ Vol]Ordered By: Sonia Schmidt on 07-27-2024 Potassium [Moles/Vol] 4.0 mmol/L 3.3-5.1 [facility] Potassium measurement (mass/ volume)Ordered By: Sonia Schmidt on 07-27-2024 Potassium (Unsp spec) [Mass/Vol] 4.0 mmol/L 3.3-5.1 [facility] RBC Auto (Bld) [#/Vol]Ordere d By: Sonia Schmidt on 07-27-2024 RBC (Bld) [#/Vol] 3.94 10*6/uL Low 4.2-5.4 [facility] Serum creatinine measurement (mass/volume)Ordered By: Sonia Schmidt on 07-27-2024 Creatinine [Mass/Vol] 0.73 mg/dL 0.70-1.20 [facility] Serum globulin measurementOr dered By: Sonia Schmidt on 07-27-2024 Globulin (S) [Mass/Vol] 2.3 g/dL 2.2-4.2 [facility] Serum glucose measurement (m ass/volume)Ordered By: Sonia Schmidt on 07-27-2024 Glucose [Mass/Vol] 78 mg/dL 70-99 [facility] Serum or plasma alanine bone otransferase (ALT) measurementOrdered By: Sonia Schmidt on 07-27-2024 ALT [Catalytic activity/Vol] 26 U/L <35 [facility] Serum or plasma albumin jac urement (mass/volume)Ordered By: Sonia Schmidt on 07-27-2024 Albumin [Mass/Vol] 3.6 g/dL 3.4-4.8 [facility] Serum or plasma albumin/glob ulin mass ratioOrdered By: Sonia Schmidt on 07-27-2024 Albumin/Globulin [Mass ratio] 1.5 {ratio} 0.9-2.4 [facility] Serum or plasma alkaline john sphatase measurementOrdered By: Sonia Schmidt on 07-27-2024 ALP [Catalytic activity/Vol] 100 U/L 35-104 [facility] Serum or plasma calcium jac urement (mass/volume)Ordered By: Sonia Schmidt on 07-27-2024 Calcium [Mass/Vol] 9.0 mg/dL 7.6-11.0 [facility] Serum or plasma urea nitroge n measurement (mass/volume)Ordered By: Sonia Schmidt on 07-27-2024 Urea nitrogen [Mass/Vol] 14 mg/dL 4-19 [facility] Sodium levelOrdered By: Ada Schmidt on 07-27-2024 Sodium [Moles/Vol] 141 mmol/L 133-145 [facility] Total proteinOrdered By: Markie Schmidt on 07-27-2024 Protein [Mass/Vol] 6.0 g/dL 5.9-8.4 [facility] White blood cell (WBC) count Ordered By: Sonia Schmidt on 07-27-2024 WBC (Bld) [#/Vol] 6.3 10*3/uL 4.4-11.0 [facility] Oncology Visit Reporton 06-[address] [facility] [place] [address] OFFICE VISIT Date of Service: 06/28/24 0858 MR#: [id number] Acct: [id number] Name: SERAFIN PRUETT Rep #: [id number] : 1960 From: Brock Martinez MD Age/Sex: 64/F Location: [facility] [place] Status: Signed HPI Subjective Date of Service 06/28/24 Chief Complaint History of recurrent DVTs. History of Present Illness 64-year-old female who provides history of: 1. Lower extremity distal DVT (does not remember which leg) around 01/2000 while being with her fourth child and following a long flight to [place]. She was treated with systemic anticoagulation throughout [...] distal DVT following a long drive from [place]. Treated with systemic anticoagulation, does not recall [...] does not recall what was the indication. 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 (more content not included)... Normal [facility] US Pelvison 05-31-2024 Indication pelvic pain Impression [...] recommended. History Medical History Surgery: Endometrial Ablation TELEPHONE AD TAKER History Postmenopausal: Postmenopausal Method Transabdominal, transvaginal, 3D [...] Read By: Laurel Barker M.D. MATERNAL MEDICINE [facility] Radiology Study observation (narrative) Analia chaudhary [facility] Bacteria Ur Culton 5 Bacteria identified Cx Nom (U) ORGANISM ID: 1 10,000 -<50,000 CFU/ml Normal urogenital ananda Normal [facility] Comment on above: Performed By: #### 6 30-4 #### [facility] CLIA [id number] [address] [place] [address] [place] CNOVon 05-28-2024 CNOV Office Visit (OBGYWM ) SERAFIN PRUETT ([id number]) 1960 F Date Time Provider Department 05/28/24 [...] Multiple0 Live Births0 Comment: 4 vaginal deliveries [employer] History LMP: 09/14/2006, Ablation Age at Menarche: 14 Age at First : Age at Menopause: [employer] History Comments: Sexual Activity: Yes; Male; husbands [...] Colon Cancer Father other (triple bypass) Father VT x 2 other (near kidney/liver failure) Father [...] discussed with the Patient or Patient's Authorized Director Of Infection Control. As applicable, any other physician, advance practice provider, medical student, or other health professional student that will be observing or involved in the sensitive examination for educational or training purposes was discussed with the Patient or Authorized Director Of Infection Control. The Patient or Authorized Director Of Infection Control has agreed to proceed with the sensitive examination. (Sensitive examination includes inspection and/or palpation of the breasts, pelvis, prostate and anorectal regions). EXAM: BP 122/70 Ht 5' 4.75" (1.65m) Wt 206 lb (93.4kg) LMP 09/14/2006 [...] external genitalia normal, normal Bartholin's glands, urethra, [place]'s glands, no vulvar lesions, no cervical lesions, physiologic discharge present, normal appearing perineal body and perianal regio (more content not included)... Normal [facility] HIGH RISK HUMAN PAPILLOMA ARSLAN (HPV), PCR FOR DETECTION AND GENOTYPINGon 05-28-2024 HPV 16 Ag Ql (Unsp spec) Not detected Normal Not detected [facility] Comment on above: Order Comment: Speci men Type: FLUID SPECIMEN Ordering Facility: [facility] Address: [address] [place] [address] Performed By: #### H PVHRT #### [facility] CLIA [id number] [address] [place] [address] [place] HPV 18 Ag Ql (Unsp spec) Not detected Normal Not detected [facility] Comment on above: Order Comment: Speci men Type: FLUID SPECIMEN Ordering Facility: [facility] Address: [address] [place] [address] Performed By: #### H PVHRT #### [facility] CLIA [id number] [address] [place] [address] [place] HPV 31+33+35+39+45+51+52+56 +58+59+66+68 DNA SAMANTHA+probe Ql (Cvx) Not detected Normal Not detected [facility] Comment on above: Order Comment: Speci men Type: FLUID SPECIMEN Ordering Facility: [facility] Address: [address] [place] [address] Result Comment: High Risk HPV Other Type includes HPV types 31, 33, 35, 39, 45, 51, 52, 56, 58, 59, 66 and 68. Performed By: #### H PVHRT #### [facility] CLIA [id number] [address] [facility] [id number] [place] [address] [place] ROSIE SCREENING W TOMOon 05-28 ROSIE SCREENING W NICOLLE * * *Final Report* * * DATE OF EXAM: May 28 2024 3:07PM WRW [id number] - ROSIE SCREENING W NICOLLE / PROCEDURE REASON: Encounter for screening mammogram for malignant neoplasm of breast * * * * Physician Interpretation * * * * RESULT: [facility] [address] [place] [address] #[id number] - ROSIE SCREENING W NICOLLE HISTORY: Patient is 64 [...] tissue. Interpreting Radiologist: Sharona Gonzalez M.D. FACR, FSBI Electronically signed on: 05/29/2024 Middle Card Tender: KARAN Transcribe Date/Time: May 28 2024 2:56P Dictated by: SHARONA GONZALEZ MD This examination was interpreted and the report reviewed and electronically signed by: SHARONA GONZALEZ MD on May 29 2024 8:00AM EST [id number] Normal [facility] PAP TESTon 05-28-2024 ADEQUACY Satisfactory for interpretation. Normal [facility] Comment on above: Order Comment: Speci men Type: FLUID SPECIMEN Ordering Facility: [facility] Address: [address] [place] [address] Performed By: #### L [id number] #### [facility] CLIA [id number] [address] [place] [address] [place] CASE REPORT Normal [facility] Comment on above: Order Comment: Speci men Type: FLUID SPECIMEN Ordering Facility: [facility] Address: [address] [place] [address] Result Comment: Gyne cologic Cytology Report Case: [id number] Authorizing Provider: Franci Metcalf MD Collected: 05/28/2024 04:14 PM Ordering Location: OB/Gynecology Received: 05/29/2024 11:56 AM First Screen: Uziel, Deb, CT, ASCP Specimen: Pap Test, ThinPrep, Cervix Performed By: #### L [id number] #### [facility] CLIA [id number] [address] [place] [address] [place] [facility] CLINICAL HISTORY, CYTOLOGY, TELEPHONE AD TAKER Routine Exam Normal [facility] Comment on above: Order Comment: Speci men Type: FLUID SPECIMEN Ordering Facility: [facility] Address: [address] [place] [address] Result Comment: Post Menopausal Performed By: #### L [id number] #### [facility] CLIA [id number] [address] [place] [address] [place] FINAL PERFORMING LAB Normal [facility] Comment on above: Order Comment: Speci men Type: FLUID SPECIMEN Ordering Facility: [facility] Address: [address] [place] [address] Result Comment: Tech nical component, garage door installer screening performed at [facility], [address] [place] [address] CLIA# [id number] Diagnostic interpretation performed at [facility], [address] [place] [address] CLIA# [id number] Promotional Marketing Agent: Mauro Street M.D. Performed By: #### L [id number] #### [facility] CLIA [id number] [address] [place] [address] [place] INTERPRETATION, CYTOLOGY, TELEPHONE AD TAKER Normal [facility] Comment on above: Order Comment: Speci men Type: FLUID SPECIMEN Ordering Facility: [facility] Address: [address] [place] [address] Result Comment: Nega tive for intraepithelial lesion or malignancy. Performed By: #### L [id number] #### [facility] CLIA [id number] [address] [place] [address] [place] PAP DISCLAIMER COMMENT The Pap Smear is a screening test for cervical cancer. False negative results occur with all screening tests, emphasizing the need for rescreening at recommended intervals, and clinical correlation. Normal [facility] Comment on above: Order Comment: Speci men Type: FLUID SPECIMEN Ordering Facility: [facility] Address: [address] [place] [address] Performed By: #### L [id number] #### [facility] CLIA [id number] [address] [place] [address] [place] PAP DEWATERING FILTERING SUPERVISOR COMMENT This specimen has be en analyzed by the ThinPrep Imaging System, an automated imaging and review system, which assists the laboratory in evaluating cells on ThinPrep Pap tests. Following automated imaging, selected avina from every slide are reviewed by a garage door installer. Normal [facility] Comment on above: Order Comment: Speci men Type: FLUID SPECIMEN Ordering Facility: [facility] Address: [address] [place] [id number] Performed By: #### L [id number] #### [facility] CLIA [id number] [address] [place] [address] [place] UA DIP, URINE (POC)on 2024 BILIRUBIN UA (POCT) Negative Negative [facility] CLARITY UA (POCT) Clear [facility] COLOR UA (POCT) Yellow [facility] GLUCOSE UA (POCT) Negative Negative mg/dL [facility] Hemoglobin Ql (U) Large Abnormal Negative [facility] Interpretation and review of laboratory results Abnormal [facility] KETONE UA (POCT) Negative Negative mg/dL [facility] LEUKOCYTES UA (POCT) Negative Negative [facility] NITRITE UA (POCT) Negative Negative [facility] PH UA (POCT) 5.5 4.5 - 8.0 [facility] Protein Ql (U) 100 mg/dL Abnormal Negative [facility] SPECIFIC GRAVITY UA (POCT) >=1.030 1.005 - 1.030 [facility] UROBILINOGEN UA (POCT) 0.2 Uma l E.U./dL [facility] Location:[facility], [address] [facility], [place], [place], [id number] [place] [address] POINT OF CARE [facility] Absolute neutrophil countOrd ered By: Sonia Schmidt on 05-25-2024 Neutrophils (Bld) [#/Vol] 3.5 10*3/uL 2.0-7.7 [facility] Albumin to globulin ratioOrd ered By: Sonia Schmidt on 05-25-2024 Albumin/Globulin [Mass ratio] 1.0 {ratio} 0.9-2.4 [facility] Basophil percentageOrdered B y: Sonia Schmidt on 05-25-2024 Basophils/100 WBC (Bld) 0.9 % 0-[address] [facility] Bilirubin, totalOrdered By: Sonia Schmidt on 05-25-2024 Bilirubin [Mass/Vol] 0.40 mg/dL 0.20-1.00 [facility] Comment on above: For patients on eltr ombopag therapy, use of Dimension [place] TBIL is not recommended. Blood urea nitrogen (BUN)/cr eatinine ratioOrdered By: Sonia Schmidt on 05-25-2024 Urea nitrogen/Creatinine [Mass ratio] 24.6 mg/mg High 10-20 [facility] CBC W/Diff, Automatedon 05-16 Absolute Lymph 1.24 X10 3/uL Normal 0.83-4.51 [facility] Comment on above: Performed By: #### L 500.4050, L100.0100 #### [facility] [address] [place], [address] Absolute Neut 3.5 X10 3/uL Normal 2.0-7.7 [facility] Comment on above: Performed By: #### L 500.4050, L100.0100 #### [facility] [address] [place], [address] Basophils/100 WBC (Bld) 0.9 % Normal 0-[address] [facility] Comment on above: Performed By: #### L 500.4050, L100.0100 #### [facility] [address] [place], [address] Eosinophils/100 WBC (Bld) 5.5 % High 0-5 [facility] Comment on above: Performed By: #### L 500.4050, L100.0100 #### [facility] [address] [place], [address] Erythrocyte distribution width (RBC) [Ratio] 12.5 % Normal 11.6-14.6 [facility] Comment on above: Performed By: #### L 500.4050, L100.0100 #### [facility] [address] [place], [address] Hematocrit (Bld) [Volume fraction] 39.9 % Normal 37-47 [facility] Comment on above: Performed By: #### L 500.4050, L100.0100 #### [facility] [address] [place], [address] Hemoglobin (Bld) [Mass/Vol] 13.1 g/dL Normal 12.0-15.0 [facility] Comment on above: Performed By: #### L 500.4050, L100.0100 #### [facility] [address] [place], [address] IG% 0.400 Normal 0.0-0.9 [facility] Comment on above: Result Comment: IG% - Immature Granulocytes (promyelocytes, myelocytes and metamyelocytes) > 1% indicates that a LEFT SHIFT is Present. Performed By: #### L 500.4050, L100.0100 #### [facility] [address] [place], [address] Lymphocytes/100 WBC (Bld) 22.2 % Normal 19-41 [facility] Comment on above: Performed By: #### L 500.4050, L100.0100 #### [facility] [address] [place], [address] MCH (RBC) [Entitic mass] 30.8 pg Normal 27.0-32.0 [facility] Comment on above: Performed By: #### L 500.4050, L100.0100 #### [facility] [address] [place], [address] MCHC (RBC) [Mass/Vol] 32.8 g/dL Normal 32-36 [facility] Comment on above: Performed By: #### L 500.4050, L100.0100 #### [facility] [address] [place], [address] MCV (RBC) [Entitic vol] 93.7 fL Normal 81-[address] [facility] Comment on above: Performed By: #### L 500.4050, L100.0100 #### [facility] [address] [place], [address] Monocytes/100 WBC (Bld) 7.7 % Normal 0-[address] [facility] Comment on above: Performed By: #### L 500.4050, L100.0100 #### [facility] [address] [place], [address] Neutrophils/100 WBC (Bld) 63.3 % Normal 47-70 [facility] Comment on above: Performed By: #### L 500.4050, L100.0100 #### [facility] [address] [place], [address] Nucleated RBC (Bld) [#/Vol] 0 10*3/uL Normal 0-5 [facility] Comment on above: Performed By: #### L 500.4050, L100.0100 #### [facility] [address] [place], [address] Platelet mean volume (Bld) [Entitic vol] 9.7 fL Normal 6.2-12.0 [facility] Comment on above: Performed By: #### L 500.4050, L100.0100 #### [facility] [address] [place], [address] Platelets (Bld) [#/Vol] 279 10*3/uL Normal 150-450 [facility] Comment on above: Performed By: #### L 500.4050, L100.0100 #### [facility] [address] [place], [address] RBC (Bld) [#/Vol] 4.26 10*6/uL Normal 4.2-5.4 [facility] Comment on above: Performed By: #### L 500.4050, L100.0100 #### [facility] [address] [place], [address] RDW SD 42.4 fl Normal 35.1-43.9 [facility] Comment on above: Performed By: #### L 500.4050, L100.0100 #### [facility] [address] [place], [address] WBC (Bld) [#/Vol] 5.6 10*3/uL Normal 4.4-11.0 [facility] Comment on above: Performed By: #### L 500.4050, L100.0100 #### [facility] [address] [place], [address] Carbon dioxide measurementOr dered By: Sonia Schmidt on 05-25-2024 CO2 [Moles/Vol] 30.0 mmol/L 21.0-32.0 [facility] Chloride measurementOrdered By: Sonia Schmidt on 05-25-2024 Chloride [Moles/Vol] 106 mmol/L 98-107 [facility] Comprehensive Metabolic Prof ilon 05-25-2024 Albumin [Mass/Vol] 3.2 g/dL Normal 3.2-5.0 [facility] Comment on above: Performed By: #### L 500.4050, L100.0100 #### [facility] [address] [place], [address] Albumin/Globulin [Mass ratio] 1.0 {ratio} Normal 0.9-2.4 [facility] Comment on above: Performed By: #### L 500.4050, L100.0100 #### [facility] [address] [place], [address] ALK P 109 U/L Normal 45-117 [facility] Comment on above: Performed By: #### L 500.4050, L100.0100 #### [facility] [address] [place], [address] ALT [Catalytic activity/Vol] 41 U/L Normal 13-56 [facility] Comment on above: Performed By: #### L 500.4050, L100.0100 #### [facility] [address] [place], [address] AST [Catalytic activity/Vol] 38 U/L High 15-37 [facility] Comment on above: Performed By: #### L 500.4050, L100.0100 #### [facility] [address] [place], [address] Bilirubin [Mass/Vol] 0.40 mg/dL Normal 0.20-1.00 [facility] Comment on above: Result Comment: For patients on eltrombopag therapy, use of Dimension [place] TBIL is not recommended. Performed By: #### L 500.4050, L100.0100 #### [facility] [address] [place], [address] BUN/CRE 24.6 RATIO High 10-20 [facility] Comment on above: Performed By: #### L 500.4050, L100.0100 #### [facility] [address] [place], [address] CA,Total 9.1 mg/dL Normal 8.5-10.1 [facility] Comment on above: Performed By: #### L 500.4050, L100.0100 #### [facility] [address] [place], [address] Chloride [Moles/Vol] 106 mmol/L Normal 98-107 [facility] Comment on above: Performed By: #### L 500.4050, L100.0100 #### [facility] [address] [place], [address] CO2 [Moles/Vol] 30.0 mmol/L Normal 21.0-32.0 [facility] Comment on above: Performed By: #### L 500.4050, L100.0100 #### [facility] [address] [place], [address] Creatinine [Mass/Vol] 0.69 mg/dL Normal 0.55-1.02 [facility] Comment on above: Result Comment: The validity of the calculated GFR GFRAA in patients over 70 years has not been determined. Clinical correlation is essential. Performed By: #### L 500.4050, L100.0100 #### [facility] [address] [place], [address] EST GFR - AA 110 mL/min Normal >60 [facility] Comment on above: Result Comment: Afri can [place] GFR Calc Performed By: #### L 500.4050, L100.0100 #### [facility] [address] [place], [address] GAP 4 Low 5-15 [facility] Comment on above: Performed By: #### L 500.4050, L100.0100 #### [facility] [address] [place], [address] GFR/1.73 sq M.predicted among non-blacks MDRD (S/P/Bld) [Vol rate/Area] 91 mL/min/{1.73_m2} Normal >60 [facility] Comment on above: Result Comment: Non- GFR Calc Performed By: #### L 500.4050, L100.0100 #### [facility] [address] [place], [address] Globulin (S) [Mass/Vol] 3.2 g/dL Normal 2.2-4.2 [facility] Comment on above: Performed By: #### L 500.4050, L100.0100 #### [facility] [address] [place], [address] Glucose [Mass/Vol] 79 mg/dL Normal 74-106 [facility] Comment on above: Performed By: #### L 500.4050, L100.0100 #### [facility] [address] [place], [address] Potassium [Moles/Vol] 4.0 mmol/L Normal 3.5-5.1 [facility] Comment on above: Performed By: #### L 500.4050, L100.0100 #### [facility] [address] [place], [address] Sodium [Moles/Vol] 140 mmol/L Normal 136-145 [facility] Comment on above: Performed By: #### L 500.4050, L100.0100 #### [facility] [address] [place], [address] T PROT 6.4 g/dL Normal 6.4-8.2 [facility] Comment on above: Performed By: #### L 500.4050, L100.0100 #### [facility] [address] [place], [address] Urea nitrogen [Mass/Vol] 17 mg/dL Normal 7-18 [facility] Comment on above: Performed By: #### L 500.4050, L100.0100 #### [facility] [address] [place], [address] Eosinophil percentageOrdered By: Sonia Schmidt on 05-25-2024 Eosinophils/100 WBC (Bld) 5.5 % High 0-5 [facility] Erythrocyte distribution wid th ratioOrdered By: Sonia Schmidt on 05-25-2024 Erythrocyte distribution width (RBC) [Ratio] 12.5 % 11.6-14.6 [facility] Erythrocyte distribution wid th standard deviationOrdered By: Sonia Schmidt on 05-25-2024 Erythrocyte distribution width (RBC) [Entitic vol] 42.4 fL 35.1-43.9 [facility] Estimated glomerular filtrat ion rate (GFR) AmericanOrdered By: Sonia Schmidt on 05-25-2024 Estimated GFR (MDRD) Amer 110 mL/min >60 [facility] Comment on above: GFR Calc Glomerular filtration rate ( GFR) estimationOrdered By: Sonia Schmidt on 05-25-2024 Estimated GFR (MDRD) Non-Af Amer 91 mL/min >60 [facility] Comment on above: Non- GFR Calc Glucose measurementOrdered B y: Sonia Schmidt on 05-25-2024 Glucose [Mass/Vol] 79 mg/dL 74-106 [facility] Hematocrit Auto (Bld) [Volum e fraction]Ordered By: Sonia Schmidt on 05-25-2024 Hematocrit (Bld) [Volume fraction] 39.9 % 37-47 [facility] Hemoglobin measurementOrdere d By: Sonia Schmidt on 05-25-2024 Hemoglobin (Bld) [Mass/Vol] 13.1 g/dL 12.0-15.0 [facility] Immature granulocytes/100 WB C Auto (Bld)Ordered By: Sonia Schmidt on 05-25-2024 Immature granulocytes/100 WBC (Bld) 0.400 % 0.0-0.9 [facility] Comment on above: IG% - Immature Granu locytes (promyelocytes, myelocytes and metamyelocytes) > 1% indicates that a LEFT SHIFT is Present. Laboratory - Chemistry and C hemistry - challengeOrdered By: Sonia Schmidt on 05-25-2024 AST [Catalytic activity/Vol] 38 U/L High 15-37 [facility] Lymphocytes Auto (Unsp spec) [#/Vol]Ordered By: Sonia Schmidt on 05-25-2024 Lymphocytes (Bld) [#/Vol] 1.24 10*3/uL 0.83-4.51 [facility] Lymphocytes/100 WBC Auto (Un sp spec)Ordered By: Sonia Schmidt on 05-25-2024 Lymphocytes/100 WBC (Bld) 22.2 % 19-41 [facility] MCV (mean corpuscular volume ) determinationOrdered By: Sonia Schmidt on 05-25-2024 MCV (RBC) [Entitic vol] 93.7 fL 81-[address] [facility] Mean corpuscular hemoglobin (MCH) determinationOrdered By: Sonia Schmidt on 05-25-2024 MCH (RBC) [Entitic mass] 30.8 pg 27.0-32.0 [facility] Mean corpuscular hemoglobin concentration (MCHC) determinationOrdered By: Sonia Schmidt on 05-25-2024 MCHC (RBC) [Mass/Vol] 32.8 g/dL 32-36 [facility] Mean platelet volume determi nationOrdered By: Sonia Schmidt on 05-25-2024 Platelet mean volume (Bld) [Entitic vol] 9.7 fL 6.2-12.0 [facility] Monocyte percentageOrdered B y: Sonia Schmidt on 05-25-2024 Monocytes/100 WBC (Bld) 7.7 % 0-[address] [facility] Neutrophil percentageOrdered By: Sonia Schmidt on 05-25-2024 Neutrophils/100 WBC (Bld) 63.3 % 47-70 [facility] Nucleated red blood cell per centageOrdered By: Sonia Schmidt on 05-25-2024 Nucleated RBC/100 WBC (Bld) [Ratio] 0 % 0-5 [facility] Platelet countOrdered By: Demarcus Schmidt on 05-25-2024 Platelets (Bld) [#/Vol] 279 10*3/uL 150-450 [facility] Potassium measurementOrdered By: Sonia Schmidt on 05-25-2024 Potassium [Moles/Vol] 4.0 mmol/L 3.5-5.1 [facility] RBC Auto (Bld) [#/Vol]Ordere d By: Sonia Schmidt on 05-25-2024 RBC (Bld) [#/Vol] 4.26 10*6/uL 4.2-5.4 [facility] Serum anion gap measurementO rdered By: Sonia Schmidt on 05-25-2024 Anion gap [Moles/Vol] 4 mmol/L Low 5-15 [facility] Serum globulin measurementOr dered By: Sonia Schmidt on 05-25-2024 Globulin (S) [Mass/Vol] 3.2 g/dL 2.2-4.2 [facility] Serum or plasma alanine bone otransferase (ALT) measurementOrdered By: Sonia Schmidt on 05-25-2024 ALT [Catalytic activity/Vol] 41 U/L 13-56 [facility] Serum or plasma albumin jac urement (mass/volume)Ordered By: Sonia Schmidt on 05-25-2024 Albumin [Mass/Vol] 3.2 g/dL 3.2-5.0 [facility] Serum or plasma alkaline john sphatase measurementOrdered By: Sonia Schmidt on 05-25-2024 ALP [Catalytic activity/Vol] 109 U/L 45-117 [facility] Serum or plasma calcium jac urement (mass/volume)Ordered By: Sonia Schmidt on 05-25-2024 Calcium [Mass/Vol] 9.1 mg/dL 8.5-10.1 [facility] Serum or plasma creatinine m easurement (mass/volume)Ordered By: Sonia Schmidt on 05-25-2024 Creatinine [Mass/Vol] 0.69 mg/dL 0.55-1.02 [facility] Comment on above: The validity of the calculated GFR & GFRAA in patients over 70 years has not been determined. Clinical correlation is essential. Serum or plasma urea nitroge n measurement (mass/volume)Ordered By: Sonia Schmidt on 05-25-2024 Urea nitrogen [Mass/Vol] 17 mg/dL 7-18 [facility] Sodium levelOrdered By: Ada Schmidt on 05-25-2024 Sodium [Moles/Vol] 140 mmol/L 136-145 [facility] Total proteinOrdered By: Markie Schmidt on 05-25-2024 Protein [Mass/Vol] 6.4 g/dL 6.4-8.2 [facility] White blood cell (WBC) count Ordered By: Sonia Schmidt on 05-25-2024 WBC (Bld) [#/Vol] 5.6 10*3/uL 4.4-11.0 [facility] Aranza 04-27-2024 HAZEL Telephone (OBGYWM) BILLSERAFIN Tom ([id number]) 1960 F Date Time Provider Department 04/27/24 FRANCI METCALF OBJULIANEWEros During your visit today, we recorded the [...] of breast [Z12.31] Order(s):ROSIE SCREENING W NICOLLE [[id number]] Order #: [id number] FUTURE Prescriptions as of 05/08/2024 - betamethasone [...] Status:Closed by EMILY TAMAYO on 05/08/24 Normal [facility] Stress Reporton 04-03-2024 Stress Report [facility] [address] [place] [address] MR#: [id number] Acct: [id number] Name: SERAFIN PRUETT Rep #: [id number] : 1960 64 From: Keith Mccray MD Primary Care: Dr. Brett Leon MD Status: REG CLI Referring Dr: Lashawn Dahl NP EGG CASER-C Sex: F C Stress Test Report Exercise [...] MD Date Dictated: 04/03/241342 Date Transcribed: 04/03/241342 Middle Card Tender: [place] Signed Normal [facility] Absolute lymphocyte countOrd ered By: Soniamegan Schmidt on 09-06-2023 Lymphocytes Auto (Unsp spec) [#/Vol] 1.20 10*3/uL 0.83-4.51 [facility] Automated lymphocyte count a s percentage of total leukocytesOrdered By: Sonia Schmidt on 09-06-2023 Lymphocytes/100 WBC Auto (Unsp spec) 23.4 % 19-41 [facility] Basophil percentageOrdered B y: Sonia Schmidt on 09-06-2023 Basophils/100 WBC (Bld) 1.0 % 0-[address] [facility] Bilirubin [Mass/Vol] 0.30 mg/dL 0.20-1.00 [facility] Comment on above: For patients on eltr ombopag therapy, use of Dimension [place] TBIL is not recommended. Chloride [Moles/Vol] 106 mmol/L 98-107 [facility] Eosinophils/100 WBC (Bld) 4.9 % 0-5 [facility] Glucose [Mass/Vol] 74 mg/dL 74-106 [facility] Hemoglobin (Bld) [Mass/Vol] 13.2 g/dL 12.0-15.0 [facility] Monocytes/100 WBC (Bld) 9.2 % 0-[address] [facility] Neutrophils (Bld) [#/Vol] 3.1 10*3/uL 2.0-7.7 [facility] Neutrophils/100 WBC (Bld) 61.3 % 47-70 [facility] Potassium [Moles/Vol] 3.6 mmol/L 3.5-5.1 [facility] Protein [Mass/Vol] 6.5 g/dL 6.4-8.2 [facility] Sodium [Moles/Vol] 141 mmol/L 136-145 [facility] WBC (Bld) [#/Vol] 5.1 10*3/uL 4.4-11.0 [facility] Determination of erythrocyte mean corpuscular volume (MCV)Ordered By: Sonia Schmidt on 09-06-2023 MCV (RBC) [Entitic vol] 93.4 fL 81-[address] [facility] Erythrocyte distribution wid th ratioOrdered By: Sonia Schmidt on 09-06-2023 Erythrocyte distribution width (RBC) [Ratio] 12.4 % 11.6-14.6 [facility] Erythrocyte distribution wid th standard deviationOrdered By: Sonia Schmidt on 09-06-2023 Erythrocyte distribution width (RBC) [Entitic vol] 42.3 fL 35.1-43.9 [facility] Hematocrit Auto (Bld) [Volum e fraction]Ordered By: Sonia Schmidt on 09-06-2023 Hematocrit (Bld) [Volume fraction] 39.7 % 37-47 [facility] Immature granulocytes/100 WB C Auto (Bld)Ordered By: [facility] Brayan on 09-06-2023 Immature granulocytes/100 WBC (Bld) 0.200 % 0.0-0.9 [facility] Comment on above: IG% - Immature Granu locytes (promyelocytes, myelocytes and metamyelocytes) > 1% indicates that a LEFT SHIFT is Present. Laboratory - Chemistry and C hemistry - challengeOrdered By: Sonia Schmidt on 09-06-2023 Albumin/Globulin [Mass ratio] 0.9 {ratio} 0.9-2.4 [facility] ALP [Catalytic activity/Vol] 105 U/L 45-117 [facility] ALT [Catalytic activity/Vol] 28 U/L 13-56 [facility] CO2 [Moles/Vol] 31.0 mmol/L 21.0-32.0 [facility] Globulin (S) [Mass/Vol] 3.4 g/dL 2.2-4.[address] [facility] Urea nitrogen/Creatinine [Mass ratio] 19.8 mg/mg 10-20 [facility] Laboratory - Hematology and Cell countsOrdered By: Sonia Schmidt on 09-06-2023 MCH (RBC) [Entitic mass] 31.1 pg 27.0-32.0 [facility] MCHC (RBC) [Mass/Vol] 33.2 g/dL 32-36 [facility] Nucleated RBC/100 WBC (Bld) [Ratio] 0 % 0-5 [facility] Platelet mean volume (Bld) [Entitic vol] 9.7 fL 6.2-12.0 [facility] Platelets (Bld) [#/Vol] 256 10*3/uL 150-450 [facility] No Panel InformationOrdered By: Sonia Schmidt on 09-06-2023 Estimated GFR (MDRD) Amer 99 mL/min >60 [facility] Comment on above: GFR Calc Estimated GFR (MDRD) Non-Af Amer 82 mL/min >60 [facility] Comment on above: Non- GFR Calc RBC Auto (Bld) [#/Vol]Ordere d By: Sonia Schmidt on 09-06-2023 RBC (Bld) [#/Vol] 4.25 10*6/uL 4.2-5.4 [facility] Serum or plasma calcium jac urement (mass/volume)Ordered By: Sonia Schmidt on 09-06-2023 Calcium [Mass/Vol] 9.1 mg/dL 8.5-10.1 [facility] Serum or plasma creatinine m easurement (mass/volume)Ordered By: Sonia Schmidt on 09-06-2023 Creatinine [Mass/Vol] 0.76 mg/dL 0.55-1.02 [facility] Comment on above: The validity of the calculated GFR & GFRAA in patients over 70 years has not been determined. Clinical correlation is essential. Serum or plasma urea nitroge n measurement (mass/volume)Ordered By: Sonia Schmidt on 09-06-2023 Urea nitrogen [Mass/Vol] 15 mg/dL 7-18 [facility] Thin prep Papanicolaou smear with manual screeningOrdered By: Sonia Schmidt on 09-06-2023 Thin prep Papanicolaou smear with manual screening 3.1 g/dL 3.2-5.0 [facility] Thin prep Papanicolaou smear with manual screening 30 U/L 15-37 [facility] Thin prep Papanicolaou smear with manual screening 4 5-15 [facility] Basophil percentageOrdered B y: Sonia Schmidt on 06-13-2023 Bilirubin [Mass/Vol] 0.40 mg/dL 0.20-1.00 [facility] Comment on above: For patients on eltr ombopag therapy, use of Dimension [place] TBIL is not recommended. Chloride [Moles/Vol] 105 mmol/L 98-107 [facility] Glucose [Mass/Vol] 78 mg/dL 74-106 [facility] Potassium [Moles/Vol] 3.7 mmol/L 3.5-5.1 [facility] Protein [Mass/Vol] 6.4 g/dL 6.4-8.2 [facility] Sodium [Moles/Vol] 138 mmol/L 136-145 [facility] Laboratory - Chemistry and C hemistry - challengeOrdered By: Sonia Schmidt on 06-13-2023 Albumin/Globulin [Mass ratio] 1.1 {ratio} 0.9-2.4 [facility] ALP [Catalytic activity/Vol] 97 U/L 45-117 [facility] ALT [Catalytic activity/Vol] 32 U/L 13-56 [facility] CO2 [Moles/Vol] 29.0 mmol/L 21.0-32.0 [facility] Globulin (S) [Mass/Vol] 3.1 g/dL 2.2-4.2 [facility] Urea nitrogen/Creatinine [Mass ratio] 26.3 mg/mg 10-20 [facility] No Panel InformationOrdered By: Sonia Schmidt on 06-13-2023 Estimated GFR (MDRD) Amer 128 mL/min >60 [facility] Comment on above: GFR Calc Estimated GFR (MDRD) Non-Af Amer 106 mL/min >60 [facility] Comment on above: Non- GFR Calc Serum or plasma calcium jac urement (mass/volume)Ordered By: Sonia Schmidt on 06-13-2023 Calcium [Mass/Vol] 8.9 mg/dL 8.5-10.1 [facility] Serum or plasma creatinine m easurement (mass/volume)Ordered By: Sonia Schmidt on 06-13-2023 Creatinine [Mass/Vol] 0.61 mg/dL 0.55-1.02 [facility] Comment on above: The validity of the calculated GFR & GFRAA in patients over 70 years has not been determined. Clinical correlation is essential. Serum or plasma urea nitroge n measurement (mass/volume)Ordered By: Sonia Schmidt on 06-13-2023 Urea nitrogen [Mass/Vol] 16 mg/dL 7-18 [facility] Thin prep Papanicolaou smear with manual screeningOrdered By: [facility] Brayan on 06-13-2023 Thin prep Papanicolaou smear with manual screening 3.3 g/dL 3.2-5.0 [facility] Thin prep Papanicolaou smear with manual screening 33 U/L 15-37 [facility] Thin prep Papanicolaou smear with manual screening 4 5-15 [facility] Absolute lymphocyte countOrd ered By: Sonia Schmidt on 05-17-2023 Lymphocytes Auto (Unsp spec) [#/Vol] 1.23 10*3/uL 0.83-4.51 [facility] Basophil percentageOrdered B y: Sonia Schmidt on 05-17-2023 Basophils/100 WBC (Bld) 1.4 % 0-1 [facility] Bilirubin [Mass/Vol] 0.50 mg/dL 0.20-1.00 [facility] Comment on above: For patients on eltr ombopag therapy, use of Dimension [place] TBIL is not recommended. Chloride [Moles/Vol] 105 mmol/L 98-107 [facility] Eosinophils/100 WBC (Bld) 3.5 % 0-5 [facility] Glucose [Mass/Vol] 100 mg/dL 74-106 [facility] Comment on above: Fasting Glucose resu lt from 100 to 125 mg/dL suggests IMPAIRED HOMEOSTASIS per A.D.A. criteria. Neutrophils (Bld) [#/Vol] 2.5 10*3/uL 2.0-7.7 [facility] Neutrophils/100 WBC (Bld) 56.9 % 47-70 [facility] Potassium [Moles/Vol] 3.9 mmol/L 3.5-5.1 [facility] Protein [Mass/Vol] 6.7 g/dL 6.4-8.2 [facility] Sodium [Moles/Vol] 140 mmol/L 136-145 [facility] WBC (Bld) [#/Vol] 4.3 10*3/uL 4.4-11.0 [facility] Blood erythrocytes count (nu mber/volume)Ordered By: Sonia Schmidt on 05-17-2023 RBC (Bld) [#/Vol] 4.26 10*6/uL 4.2-5.4 [facility] Blood hemoglobin measurement (mass/volume)Ordered By: Sonia Schmidt on 05-17-2023 Hemoglobin (Bld) [Mass/Vol] 12.9 g/dL 12.0-15.0 [facility] Blood lymphocytes/100 leukoc ytesOrdered By: Sonia Schmidt on 05-17-2023 Lymphocytes/100 WBC (Bld) 28.3 % 19-41 [facility] Blood monocytes/100 leukocyt esOrdered By: Sonia Schmidt on 05-17-2023 Monocytes/100 WBC (Bld) 9.7 % 0-[address] [facility] Blood platelet mean volumeOr dered By: Sonia Schmidt on 05-17-2023 Platelet mean volume (Bld) [Entitic vol] 9.5 fL 6.2-12.0 [facility] Determination of erythrocyte mean corpuscular volume (MCV)Ordered By: Sonia Schmidt on 05-17-2023 MCV (RBC) [Entitic vol] 93.0 fL 81-[address] [facility] Hematocrit Auto (Bld) [Volum e fraction]Ordered By: Sonia Schmidt on 05-17-2023 Hematocrit (Bld) [Volume fraction] 39.6 % 37-47 [facility] Laboratory - Chemistry and C hemistry - challengeOrdered By: Sonia Schmidt on 05-17-2023 ALP [Catalytic activity/Vol] 97 U/L 45-117 [facility] ALT [Catalytic activity/Vol] 40 U/L 13-56 [facility] CO2 [Moles/Vol] 28.0 mmol/L 21.0-32.0 [facility] Globulin (S) [Mass/Vol] 3.4 g/dL 2.2-4.[address] [facility] Urea nitrogen/Creatinine [Mass ratio] 24.3 mg/mg 10-20 [facility] Laboratory - Hematology and Cell countsOrdered By: Sonia Schmidt on 05-17-2023 Erythrocyte distribution width (RBC) [Entitic vol] 43.2 fL 35.1-43.9 [facility] Erythrocyte distribution width (RBC) [Ratio] 12.7 % 11.6-14.6 [facility] Immature granulocytes/100 WBC (Bld) 0.200 % 0.0-0.9 [facility] Comment on above: IG% - Immature Granu locytes (promyelocytes, myelocytes and metamyelocytes) > 1% indicates that a LEFT SHIFT is Present. MCH (RBC) [Entitic mass] 30.3 pg 27.0-32.0 [facility] Nucleated RBC/100 WBC (Bld) [Ratio] 0 % 0-5 [facility] MCHC Auto (RBC) [Mass/Vol]Or dered By: Sonia Schmidt on 05-17-2023 MCHC (RBC) [Mass/Vol] 32.6 g/dL 32-36 [facility] No Panel InformationOrdered By: Sonia Schmidt on 05-17-2023 Estimated GFR (MDRD) Amer 109 mL/min >60 [facility] Comment on above: GFR Calc Estimated GFR (MDRD) Non-Af Amer 90 mL/min >60 [facility] Comment on above: Non- GFR Calc Platelets bldOrdered By: Markie Schmidt on 05-17-2023 Platelets (Bld) [#/Vol] 282 10*3/uL 150-450 [facility] Serum or plasma albumin jac urement (mass/volume)Ordered By: Sonia Schmidt on 05-17-2023 Albumin [Mass/Vol] 3.3 g/dL 3.2-5.0 [facility] Serum or plasma albumin/glob ulin mass ratioOrdered By: Sonia Schmidt on 05-17-2023 Albumin/Globulin [Mass ratio] 1.0 {ratio} 0.9-2.4 [facility] Serum or plasma calcium jac urement (mass/volume)Ordered By: Sonia Schmidt on 05-17-2023 Calcium [Mass/Vol] 8.9 mg/dL 8.5-10.1 [facility] Serum or plasma creatinine m easurement (mass/volume)Ordered By: Sonia Schmidt on 05-17-2023 Creatinine [Mass/Vol] 0.70 mg/dL 0.55-1.02 [facility] Comment on above: The validity of the calculated GFR & GFRAA in patients over 70 years has not been determined. Clinical correlation is essential. Serum or plasma urea nitroge n measurement (mass/volume)Ordered By: Sonia Schmidt on 05-17-2023 Urea nitrogen [Mass/Vol] 17 mg/dL 7-18 [facility] Thin prep Papanicolaou smear with manual screeningOrdered By: Soniamegan Schmidt on 05-17-2023 Thin prep Papanicolaou smear with manual screening 48 U/L 15-37 [facility] Thin prep Papanicolaou smear with manual screening 7 5-15 [facility] Absolute lymphocyte countOrd ered By: Jose Antonio Poole on 05-07-2023 Lymphocytes Auto (Unsp spec) [#/Vol] 1.85 10*3/uL 0.83-4.51 [facility] Basophil percentageOrdered B y: Jose Antonio Poole on 05-07-2023 Basophils/100 WBC (Bld) 0.8 % 0-[address] [facility] Chloride [Moles/Vol] 110 mmol/L 98-107 [facility] Eosinophils/100 WBC (Bld) 6.2 % 0-5 [facility] Glucose [Mass/Vol] 96 mg/dL 74-106 [facility] Neutrophils (Bld) [#/Vol] 2.9 10*3/uL 2.0-7.7 [facility] Neutrophils/100 WBC (Bld) 47.5 % 47-70 [facility] Potassium [Moles/Vol] 3.7 mmol/L 3.5-5.1 [facility] Sodium [Moles/Vol] 143 mmol/L 136-145 [facility] WBC (Bld) [#/Vol] 6.1 10*3/uL 4.4-11.0 [facility] Blood erythrocytes count (nu mber/volume)Ordered By: Jose Antonio Poole on 05-07-2023 RBC (Bld) [#/Vol] 4.11 10*6/uL 4.2-5.4 [facility] Blood hemoglobin measurement (mass/volume)Ordered By: Jose Antonio Poole on 05-07-2023 Hemoglobin (Bld) [Mass/Vol] 12.8 g/dL 12.0-15.0 [facility] Blood lymphocytes/100 leukoc ytesOrdered By: Jose Antonio Poole on 05-07-2023 Lymphocytes/100 WBC (Bld) 30.2 % 19-41 [facility] Blood monocytes/100 leukocyt esOrdered By: Jose Antonio Poole on 05-07-2023 Monocytes/100 WBC (Bld) 15.0 % 0-[address] [facility] Blood platelet mean volumeOr dered By: Jose Antonio Poole on 05-07-2023 Platelet mean volume (Bld) [Entitic vol] 9.2 fL 6.2-12.0 [facility] Determination of erythrocyte mean corpuscular volume (MCV)Ordered By: Jose Antonio Poole on 05-07-2023 MCV (RBC) [Entitic vol] 92.0 fL 81-[address] [facility] Hematocrit Auto (Bld) [Volum e fraction]Ordered By: Jose Antonio Poole on 05-07-2023 Hematocrit (Bld) [Volume fraction] 37.8 % 37-47 [facility] Laboratory - Chemistry and C hemistry - challengeOrdered By: Jose Antonio Poole on 05-07-2023 CO2 [Moles/Vol] 29.0 mmol/L 21.0-32.0 [facility] Urea nitrogen/Creatinine [Mass ratio] 28.4 mg/mg 10-20 [facility] Laboratory - Hematology and Cell countsOrdered By: Jose Antonio Poole on 05-07-2023 Erythrocyte distribution width (RBC) [Entitic vol] 41.2 fL 35.1-43.9 [facility] Erythrocyte distribution width (RBC) [Ratio] 12.5 % 11.6-14.6 [facility] Immature granulocytes/100 WBC (Bld) 0.300 % 0.0-0.9 [facility] Comment on above: IG% - Immature Granu locytes (promyelocytes, myelocytes and metamyelocytes) > 1% indicates that a LEFT SHIFT is Present. MCH (RBC) [Entitic mass] 31.1 pg 27.0-32.0 [facility] Nucleated RBC/100 WBC (Bld) [Ratio] 0 % 0-5 [facility] MCHC Auto (RBC) [Mass/Vol]Or dered By: Jose Antonio Poole on 05-07-2023 MCHC (RBC) [Mass/Vol] 33.9 g/dL 32-36 [facility] No Panel InformationOrdered By: Jose Antonio Poole on 05-07-2023 Troponin I High Sensitivity 9 pg/mL 3.0-54.0 [facility] Comment on above: Please Note: New Maira t Units and Gender Specific Reference Ranges. For more information see Policy Stat Procedure [place] High Sensitivity Troponin (TNIH) and attachments. D-Dimer Quantitative (PE/DVT) 0.72 FEU/ug/m 0.27-0.49 [facility] Comment on above: D-Dimer ELEVATED (>0 .49): Additional studies and clinicalassessments are indicated to conclude diagnosis of:Deep Vein Thrombosis (DVT) or Pulmonary Embolism (PE)CRITICAL VALUE VERIFIED. CALLED TO STEWART CALVILLO07/08/22 0500 [address].RESULTS READ BACK BY SAME . Estimated Creatinine Clearance Calc 74.98 ml/min [facility] Estimated GFR (MDRD) Amer 108 mL/min >60 [facility] Comment on above: GFR Calc Estimated GFR (MDRD) Non-Af Amer 89 mL/min >60 [facility] Comment on above: Non- GFR Calc Platelets bldOrdered By: Clara Poole on 05-07-2023 Platelets (Bld) [#/Vol] 259 10*3/uL 150-450 [facility] Serum or plasma calcium jac urement (mass/volume)Ordered By: Jose Antonio Poole on 05-07-2023 Calcium [Mass/Vol] 8.6 mg/dL 8.5-10.1 [facility] Serum or plasma creatinine m easurement (mass/volume)Ordered By: Jose Antonio Poole on 05-07-2023 Creatinine [Mass/Vol] 0.70 mg/dL 0.55-1.02 [facility] Comment on above: The validity of the calculated GFR & GFRAA in patients over 70 years has not been determined. Clinical correlation is essential. Serum or plasma urea nitroge n measurement (mass/volume)Ordered By: Jose Antonio Poole on 05-07-2023 Urea nitrogen [Mass/Vol] 20 mg/dL 7-18 [facility] Thin prep Papanicolaou smear with manual screeningOrdered By: Jose Antonio Poole on 05-07-2023 Thin prep Papanicolaou smear with manual screening 4 5-15 [facility] Absolute lymphocyte countOrd ered By: Lashawn Dahl on 02-15-2023 Lymphocytes Auto (Unsp spec) [#/Vol] 0.96 10*3/uL 0.83-4.51 [facility] Basophil percentageOrdered B y: Lashawn Dahl on 02-15-2023 Basophils/100 WBC (Bld) 0.9 % 0-[address] [facility] Eosinophils/100 WBC (Bld) 11.0 % 0-5 [facility] Neutrophils (Bld) [#/Vol] 2.6 10*3/uL 2.0-7.7 [facility] Neutrophils/100 WBC (Bld) 56.2 % 47-70 [facility] WBC (Bld) [#/Vol] 4.6 10*3/uL 4.4-11.0 [facility] Bilirubin [Mass/Vol] 0.50 mg/dL 0.20-1.00 [facility] Comment on above: For patients on eltr ombopag therapy, use of Dimension [place] TBIL is not recommended. Chloride [Moles/Vol] 107 mmol/L 98-107 [facility] Cholesterol [Mass/Vol] 164 mg/dL <200 [facility] Comment on above: <200 mg/dL Desirable 200-240 mg/dL Borderline >240 mg/dL High Risk Glucose [Mass/Vol] 82 mg/dL 74-106 [facility] Potassium [Moles/Vol] 3.8 mmol/L 3.5-5.1 [facility] Protein [Mass/Vol] 6.3 g/dL 6.4-8.2 [facility] Sodium [Moles/Vol] 140 mmol/L 136-145 [facility] Triglyceride [Mass/Vol] 56 mg/dL <[address] [facility] Comment on above: The drugs N-Acetylcy steine and Metamizole may falsely depress this assay.Serum Triglycerides Reference Interval Normal <150 mg/dL Borderline high 150 - 199 mg/dL High 200 - 499 mg/dL Very High > or = 500 mg/dL Blood erythrocytes count (nu mber/volume)Ordered By: Lashawn Dahl on 02-15-2023 RBC (Bld) [#/Vol] 4.26 10*6/uL 4.2-5.4 [facility] Blood hemoglobin measurement (mass/volume)Ordered By: Lashawn Dahl on 02-15-2023 Hemoglobin (Bld) [Mass/Vol] 13.3 g/dL 12.0-15.0 [facility] Blood lymphocytes/100 leukoc ytesOrdered By: Lashawn Dahl on 02-15-2023 Lymphocytes/100 WBC (Bld) 21.1 % 19-41 [facility] Blood monocytes/100 leukocyt esOrdered By: Lashawn Dahl on 02-15-2023 Monocytes/100 WBC (Bld) 10.1 % 0-10 [facility] Blood platelet mean volumeOr dered By: Lashawn Dahl on 02-15-2023 Platelet mean volume (Bld) [Entitic vol] 9.6 fL 6.2-12.0 [facility] Determination of erythrocyte mean corpuscular volume (MCV)Ordered By: Lashawn Dahl on 02-15-2023 MCV (RBC) [Entitic vol] 92.7 fL 81-[address] [facility] Direct bilirubinOrdered By: Lashawn Dahl on 02-15-2023 Bilirubin.direct [Mass/Vol] 0.13 mg/dL 0.00-0.30 [facility] Hematocrit Auto (Bld) [Volum e fraction]Ordered By: Lashawn Dahl on 02-15-2023 Hematocrit (Bld) [Volume fraction] 39.5 % 37-47 [facility] Laboratory - Chemistry and C hemistry - challengeOrdered By: Lashawn Dahl on 02-15-2023 ALP [Catalytic activity/Vol] 101 U/L 45-117 [facility] ALT [Catalytic activity/Vol] 37 U/L 13-56 [facility] CO2 [Moles/Vol] 27.0 mmol/L 21.0-32.0 [facility] Globulin (S) [Mass/Vol] 3.2 g/dL 2.2-4.[address] [facility] Urea nitrogen/Creatinine [Mass ratio] 21.2 mg/mg 10-20 [facility] Laboratory - Hematology and Cell countsOrdered By: Lashawn Dahl on 02-15-2023 Erythrocyte distribution width (RBC) [Entitic vol] 43.0 fL 35.1-43.9 [facility] Erythrocyte distribution width (RBC) [Ratio] 12.7 % 11.6-14.6 [facility] Immature granulocytes/100 WBC (Bld) 0.700 % 0.0-0.9 [facility] Comment on above: IG% - Immature Granu locytes (promyelocytes, myelocytes and metamyelocytes) > 1% indicates that a LEFT SHIFT is Present. MCH (RBC) [Entitic mass] 31.2 pg 27.0-32.0 [facility] Nucleated RBC/100 WBC (Bld) [Ratio] 0 % 0-5 [facility] MCHC Auto (RBC) [Mass/Vol]Or dered By: Lashawn Dahl on 02-15-2023 MCHC (RBC) [Mass/Vol] 33.7 g/dL 32-36 [facility] No Panel InformationOrdered By: Lashawn Dahl on 02-15-2023 Estimated GFR (MDRD) Amer 127 mL/min >60 [facility] Comment on above: GFR Calc Estimated GFR (MDRD) Non-Af Amer 105 mL/min >60 [facility] Comment on above: Non- GFR Calc Platelets bldOrdered By: Danny Dahl on 02-15-2023 Platelets (Bld) [#/Vol] 289 10*3/uL 150-450 [facility] Serum or plasma albumin jac urement (mass/volume)Ordered By: Lashawn Dahl on 02-15-2023 Albumin [Mass/Vol] 3.1 g/dL 3.2-5.0 [facility] Serum or plasma albumin/glob ulin mass ratioOrdered By: Lashawn Dahl on 02-15-2023 Albumin/Globulin [Mass ratio] 1.0 {ratio} 0.9-2.4 [facility] Serum or plasma calcium jac urement (mass/volume)Ordered By: Lashawn Dahl on 02-15-2023 Calcium [Mass/Vol] 8.6 mg/dL 8.5-10.1 [facility] Serum or plasma cholesterol in HDL measurement (mass/volume)Ordered By: Lashawn Dahl on 02-15-2023 Cholesterol in HDL [Mass/Vol] 87 mg/dL >40 [facility] Comment on above: The drugs N-Acetylcy steine and Metamizole may falsely depress this assay. Reference Range HDL <40 mg/dL Low HDL Cholesterol HDL >or= 60 mg/dL High HDL Cholesterol Serum or plasma cholesterol in VLDL measurement (mass/volume)Ordered By: Lashawn Dahl on 02-15-2023 Cholesterol in VLDL [Mass/Vol] 11 mg/dL 5-40 [facility] Serum or plasma creatinine m easurement (mass/volume)Ordered By: Lashawn Dahl on 02-15-2023 Creatinine [Mass/Vol] 0.61 mg/dL 0.55-1.02 [facility] Comment on above: The validity of the calculated GFR & GFRAA in patients over 70 years has not been determined. Clinical correlation is essential. Serum or plasma low density lipoprotein (LDL) cholesterol measurement (mass/volume)Ordered By: Lashawn Dahl on 02-15-2023 Cholesterol in LDL [Mass/Vol] 66 mg/dL 0-130 [facility] Serum or plasma urea nitroge n measurement (mass/volume)Ordered By: Lashawn Dahl on 02-15-2023 Urea nitrogen [Mass/Vol] 13 mg/dL 7-18 [facility] Thin prep Papanicolaou smear with manual screeningOrdered By: Lashawn Dahl on 02-15-2023 Thin prep Papanicolaou smear with manual screening 33 U/L 15-37 [facility] Thin prep Papanicolaou smear with manual screening 6 5-15 [facility] Absolute lymphocyte countOrd ered By: Sonia Schmidt on 11-29-2022 Lymphocytes Auto (Unsp spec) [#/Vol] 1.14 10*3/uL 0.83-4.51 [facility] Basophil percentageOrdered B y: Sonia Schmidt on 11-29-2022 Basophils/100 WBC (Bld) 0.7 % 0-[address] [facility] Bilirubin [Mass/Vol] 0.30 mg/dL 0.20-1.00 [facility] Comment on above: For patients on eltr ombopag therapy, use of Dimension [place] TBIL is not recommended. Chloride [Moles/Vol] 108 mmol/L 98-107 [facility] Eosinophils/100 WBC (Bld) 4.2 % 0-5 [facility] Glucose [Mass/Vol] 94 mg/dL 74-106 [facility] Neutrophils (Bld) [#/Vol] 2.7 10*3/uL 2.0-7.7 [facility] Neutrophils/100 WBC (Bld) 58.4 % 47-70 [facility] Potassium [Moles/Vol] 3.9 mmol/L 3.5-5.1 [facility] Protein [Mass/Vol] 6.2 g/dL 6.4-8.2 [facility] Sodium [Moles/Vol] 142 mmol/L 136-145 [facility] WBC (Bld) [#/Vol] 4.6 10*3/uL 4.4-11.0 [facility] Blood erythrocytes count (nu mber/volume)Ordered By: Sonia Schmidt on 11-29-2022 RBC (Bld) [#/Vol] 3.85 10*6/uL 4.2-5.4 [facility] Blood hemoglobin measurement (mass/volume)Ordered By: Sonia Schmidt on 11-29-2022 Hemoglobin (Bld) [Mass/Vol] 12.1 g/dL 12.0-15.0 [facility] Blood lymphocytes/100 leukoc ytesOrdered By: Sonia Schmidt on 11-29-2022 Lymphocytes/100 WBC (Bld) 24.9 % 19-41 [facility] Blood monocytes/100 leukocyt esOrdered By: Sonia Schmidt on 11-29-2022 Monocytes/100 WBC (Bld) 11.6 % 0-10 [facility] Blood platelet mean volumeOr dered By: Sonia Schmidt on 11-29-2022 Platelet mean volume (Bld) [Entitic vol] 9.7 fL 6.2-12.0 [facility] Determination of erythrocyte mean corpuscular volume (MCV)Ordered By: Sonia Schmidt on 11-29-2022 MCV (RBC) [Entitic vol] 92.5 fL 81-[address] [facility] Hematocrit Auto (Bld) [Volum e fraction]Ordered By: Sonia Schmidt on 11-29-2022 Hematocrit (Bld) [Volume fraction] 35.6 % 37-47 [facility] Laboratory - Chemistry and C hemistry - challengeOrdered By: Sonia Schmidt on 11-29-2022 ALP [Catalytic activity/Vol] 105 U/L 45-117 [facility] ALT [Catalytic activity/Vol] 33 U/L 13-56 [facility] CO2 [Moles/Vol] 29.0 mmol/L 21.0-32.0 [facility] Globulin (S) [Mass/Vol] 3.2 g/dL 2.2-4.[address] [facility] Urea nitrogen/Creatinine [Mass ratio] 22.8 mg/mg 10-20 [facility] Laboratory - Hematology and Cell countsOrdered By: Sonia Schmidt on 11-29-2022 Erythrocyte distribution width (RBC) [Entitic vol] 41.6 fL 35.1-43.9 [facility] Erythrocyte distribution width (RBC) [Ratio] 12.6 % 11.6-14.6 [facility] Immature granulocytes/100 WBC (Bld) 0.200 % 0.0-0.9 [facility] Comment on above: IG% - Immature Granu locytes (promyelocytes, myelocytes and metamyelocytes) > 1% indicates that a LEFT SHIFT is Present. MCH (RBC) [Entitic mass] 31.4 pg 27.0-32.0 [facility] Nucleated RBC/100 WBC (Bld) [Ratio] 0 % 0-5 [facility] MCHC Auto (RBC) [Mass/Vol]Or dered By: Sonia Schmidt on 11-29-2022 MCHC (RBC) [Mass/Vol] 34.0 g/dL 32-36 [facility] No Panel InformationOrdered By: Sonia Schmidt on 11-29-2022 Estimated GFR (MDRD) Amer 109 mL/min >60 [facility] Comment on above: GFR Calc Estimated GFR (MDRD) Non-Af Amer 90 mL/min >60 [facility] Comment on above: Non- GFR Calc Platelets bldOrdered By: Markie Schmidt on 11-29-2022 Platelets (Bld) [#/Vol] 255 10*3/uL 150-450 [facility] Serum or plasma albumin jac urement (mass/volume)Ordered By: Sonia Schmidt on 11-29-2022 Albumin [Mass/Vol] 3.0 g/dL 3.2-5.0 [facility] Serum or plasma albumin/glob ulin mass ratioOrdered By: Sonia Schmidt on 11-29-2022 Albumin/Globulin [Mass ratio] 0.9 {ratio} 0.9-2.4 [facility] Serum or plasma calcium jac urement (mass/volume)Ordered By: Sonia Schmidt on 11-29-2022 Calcium [Mass/Vol] 8.3 mg/dL 8.5-10.1 [facility] Serum or plasma creatinine m easurement (mass/volume)Ordered By: Sonia Schmidt on 11-29-2022 Creatinine [Mass/Vol] 0.70 mg/dL 0.55-1.02 [facility] Comment on above: The validity of the calculated GFR & GFRAA in patients over 70 years has not been determined. Clinical correlation is essential. Serum or plasma urea nitroge n measurement (mass/volume)Ordered By: Sonia Schmidt on 11-29-2022 Urea nitrogen [Mass/Vol] 16 mg/dL 7-18 [facility] Thin prep Papanicolaou smear with manual screeningOrdered By: Sonia Schmidt on 11-29-2022 Thin prep Papanicolaou smear with manual screening 35 U/L 15-37 [facility] Thin prep Papanicolaou smear with manual screening 5 5-15 [facility] Basophil percentageOrdered B y: Pam Dickinson on 11-10-2022 Bilirubin [Mass/Vol] 0.50 mg/dL 0.20-1.00 [facility] Comment on above: For patients on eltr ombopag therapy, use of Dimension [place] TBIL is not recommended. Chloride [Moles/Vol] 107 mmol/L 98-107 [facility] Glucose [Mass/Vol] 86 mg/dL 74-106 [facility] Potassium [Moles/Vol] 3.7 mmol/L 3.5-5.1 [facility] Protein [Mass/Vol] 6.4 g/dL 6.4-8.2 [facility] Sodium [Moles/Vol] 139 mmol/L 136-145 [facility] Laboratory - Chemistry and C hemistry - challengeOrdered By: Pam Dickinson on 11-10-2022 ALP [Catalytic activity/Vol] 106 U/L 45-117 [facility] ALT [Catalytic activity/Vol] 25 U/L 13-56 [facility] CO2 [Moles/Vol] 28.0 mmol/L 21.0-32.0 [facility] Globulin (S) [Mass/Vol] 3.4 g/dL 2.2-4.2 [facility] Urea nitrogen/Creatinine [Mass ratio] 29.8 mg/mg 10-20 [facility] No Panel InformationOrdered By: Pam Dickinson on 11-10-2022 Estimated GFR (MDRD) Amer 148 mL/min >60 [facility] Comment on above: GFR Calc Estimated GFR (MDRD) Non-Af Amer 123 mL/min >60 [facility] Comment on above: Non- GFR Calc Thyroid Stimulating Hormone (TSH) 0.90 uIU/mL 0.358-3.74 [facility] Vitamin D 25-Hydroxy 39.5 ng/mL [facility] Comment on above: Vitamin D 25(OH) Sta tus Range Deficiency <20 ng/mL (50nmol/L) Insufficiency 20 - 30 ng/mL (50 - 75 nmol/L) Sufficiency 30 - 100 ng/mL (75 - 250 nmol/L) Toxicity >100 ng/mL (>250 nmol/L) Serum or plasma albumin jac urement (mass/volume)Ordered By: Pam Dickinson on 11-10-2022 Albumin [Mass/Vol] 3.0 g/dL 3.2-5.0 [facility] Serum or plasma albumin/glob ulin mass ratioOrdered By: Pam Dickinson on 11-10-2022 Albumin/Globulin [Mass ratio] 0.9 {ratio} 0.9-2.4 [facility] Serum or plasma calcium jac urement (mass/volume)Ordered By: Pam Dickinson on 11-10-2022 Calcium [Mass/Vol] 8.8 mg/dL 8.5-10.1 [facility] Serum or plasma creatinine m easurement (mass/volume)Ordered By: Pam Dickinson on 11-10-2022 Creatinine [Mass/Vol] 0.54 mg/dL 0.55-1.02 [facility] Comment on above: The validity of the calculated GFR & GFRAA in patients over 70 years has not been determined. Clinical correlation is essential. Serum or plasma urea nitroge n measurement (mass/volume)Ordered By: Pam Dickinson on 11-10-2022 Urea nitrogen [Mass/Vol] 16 mg/dL 7-18 [facility] Thin prep Papanicolaou smear with manual screeningOrdered By: Pam Dickinson on 11-10-2022 Thin prep Papanicolaou smear with manual screening 28 U/L 15-37 [facility] Thin prep Papanicolaou smear with manual screening 4 5-15 [facility] Absolute lymphocyte countOrd ered By: Wilian Cyr on 11-08-2022 Lymphocytes Auto (Unsp spec) [#/Vol] 1.17 10*3/uL 0.83-4.51 [facility] Basophil percentageOrdered B y: Wilian Cyr on 11-08-2022 Basophils/100 WBC (Bld) 1.0 % 0-1 [facility] Eosinophils/100 WBC (Bld) 3.5 % 0-5 [facility] Neutrophils (Bld) [#/Vol] 2.3 10*3/uL 2.0-7.7 [facility] Neutrophils/100 WBC (Bld) 56.9 % 47-70 [facility] WBC (Bld) [#/Vol] 4.0 10*3/uL 4.4-11.0 [facility] Blood erythrocytes count (nu mber/volume)Ordered By: Wilian Cyr on 11-08-2022 RBC (Bld) [#/Vol] 4.22 10*6/uL 4.2-5.4 [facility] Blood hemoglobin measurement (mass/volume)Ordered By: Wilian Cyr on 11-08-2022 Hemoglobin (Bld) [Mass/Vol] 13.4 g/dL 12.0-15.0 [facility] Blood lymphocytes/100 leukoc ytesOrdered By: Wilian Cyr on 11-08-2022 Lymphocytes/100 WBC (Bld) 29.0 % 19-41 [facility] Blood monocytes/100 leukocyt esOrdered By: Wilian Cyr on 11-08-2022 Monocytes/100 WBC (Bld) 9.4 % 0-[address] [facility] Blood platelet mean volumeOr dered By: Wilian Cyr on 11-08-2022 Platelet mean volume (Bld) [Entitic vol] 9.5 fL 6.2-12.0 [facility] Determination of erythrocyte mean corpuscular volume (MCV)Ordered By: Wilian Cyr on 11-08-2022 MCV (RBC) [Entitic vol] 93.1 fL 81-[address] [facility] Hematocrit Auto (Bld) [Volum e fraction]Ordered By: Wilian Cyr on 11-08-2022 Hematocrit (Bld) [Volume fraction] 39.3 % 37-47 [facility] Laboratory - Hematology and Cell countsOrdered By: Wilian Cyr on 11-08-2022 Erythrocyte distribution width (RBC) [Entitic vol] 41.8 fL 35.1-43.9 [facility] Erythrocyte distribution width (RBC) [Ratio] 12.3 % 11.6-14.6 [facility] Immature granulocytes/100 WBC (Bld) 0.200 % 0.0-0.9 [facility] Comment on above: IG% - Immature Granu locytes (promyelocytes, myelocytes and metamyelocytes) > 1% indicates that a LEFT SHIFT is Present. MCH (RBC) [Entitic mass] 31.8 pg 27.0-32.0 [facility] Nucleated RBC/100 WBC (Bld) [Ratio] 0 % 0-5 [facility] MCHC Auto (RBC) [Mass/Vol]Or dered By: Wilian Cyr on 11-08-2022 MCHC (RBC) [Mass/Vol] 34.1 g/dL 32-36 [facility] Platelets bldOrdered By: Annel Cyr on 11-08-2022 Platelets (Bld) [#/Vol] 271 10*3/uL 150-450 [facility] Absolute lymphocyte countOrd ered By: Dr. Schmidt on 09-13-2022 Lymphocytes Auto (Unsp spec) [#/Vol] 0.96 10*3/uL 0.83-4.51 [facility] Basophil percentageOrdered B y: Dr. Schmidt on 09-13-2022 Basophils/100 WBC (Bld) 0.8 % 0-[address] [facility] Bilirubin [Mass/Vol] 0.40 mg/dL 0.20-1.00 [facility] Comment on above: For patients on eltr ombopag therapy, use of Dimension [place] TBIL is not recommended. Chloride [Moles/Vol] 105 mmol/L 98-107 [facility] Eosinophils/100 WBC (Bld) 4.4 % 0-5 [facility] Glucose [Mass/Vol] 88 mg/dL 74-106 [facility] Neutrophils (Bld) [#/Vol] 3.3 10*3/uL 2.0-7.7 [facility] Neutrophils/100 WBC (Bld) 65.4 % 47-70 [facility] Potassium [Moles/Vol] 4.0 mmol/L 3.5-5.1 [facility] Protein [Mass/Vol] 6.5 g/dL 6.4-8.2 [facility] Sodium [Moles/Vol] 141 mmol/L 136-145 [facility] WBC (Bld) [#/Vol] 5.0 10*3/uL 4.4-11.0 [facility] Blood erythrocytes count (nu mber/volume)Ordered By: Dr. Schmidt on 09-13-2022 RBC (Bld) [#/Vol] 4.27 10*6/uL 4.2-5.4 [facility] Blood hemoglobin measurement (mass/volume)Ordered By: Dr. Schmidt on 09-13-2022 Hemoglobin (Bld) [Mass/Vol] 13.3 g/dL 12.0-15.0 [facility] Blood lymphocytes/100 leukoc ytesOrdered By: Dr. Schmidt on 09-13-2022 Lymphocytes/100 WBC (Bld) 19.1 % 19-41 [facility] Blood monocytes/100 leukocyt esOrdered By: Dr. Schmidt on 09-13-2022 Monocytes/100 WBC (Bld) 9.9 % 0-[address] [facility] Blood platelet mean volumeOr dered By: Dr. Schmidt on 09-13-2022 Platelet mean volume (Bld) [Entitic vol] 9.7 fL 6.2-12.0 [facility] Determination of erythrocyte mean corpuscular volume (MCV)Ordered By: Dr. Schmidt on 09-13-2022 MCV (RBC) [Entitic vol] 93.9 fL 81-[address] [facility] Hematocrit Auto (Bld) [Volum e fraction]Ordered By: Dr. Schmidt on 09-13-2022 Hematocrit (Bld) [Volume fraction] 40.1 % 37-47 [facility] Laboratory - Chemistry and C hemistry - challengeOrdered By: Dr. Schmidt on 09-13-2022 ALP [Catalytic activity/Vol] 100 U/L 45-117 [facility] ALT [Catalytic activity/Vol] 31 U/L 13-56 [facility] CO2 [Moles/Vol] 31.0 mmol/L 21.0-32.0 [facility] Globulin (S) [Mass/Vol] 3.3 g/dL 2.2-4.2 [facility] Urea nitrogen/Creatinine [Mass ratio] 30.5 mg/mg 10-20 [facility] Laboratory - Hematology and Cell countsOrdered By: Dr. Schmidt on 09-13-2022 Erythrocyte distribution width (RBC) [Entitic vol] 41.7 fL 35.1-43.9 [facility] Erythrocyte distribution width (RBC) [Ratio] 12.2 % 11.6-14.6 [facility] Immature granulocytes/100 WBC (Bld) 0.400 % 0.0-0.9 [facility] Comment on above: IG% - Immature Granu locytes (promyelocytes, myelocytes and metamyelocytes) > 1% indicates that a LEFT SHIFT is Present. MCH (RBC) [Entitic mass] 31.1 pg 27.0-32.0 [facility] Nucleated RBC/100 WBC (Bld) [Ratio] 0 % 0-5 [facility] MCHC Auto (RBC) [Mass/Vol]Or dered By: Dr. Schmidt on 09-13-2022 MCHC (RBC) [Mass/Vol] 33.2 g/dL 32-36 [facility] No Panel InformationOrdered By: Dr. Schmidt on 09-13-2022 Estimated GFR (MDRD) Amer 133 mL/min >60 [facility] Comment on above: GFR Calc Estimated GFR (MDRD) Non-Af Amer 110 mL/min >60 [facility] Comment on above: Non- GFR Calc Platelets bldOrdered By: Dr. Schmidt on 09-13-2022 Platelets (Bld) [#/Vol] 256 10*3/uL 150-450 [facility] Serum or plasma albumin jac urement (mass/volume)Ordered By: Dr. Schmidt on 09-13-2022 Albumin [Mass/Vol] 3.2 g/dL 3.2-5.0 [facility] Serum or plasma albumin/glob ulin mass ratioOrdered By: Dr. Schmidt on 09-13-2022 Albumin/Globulin [Mass ratio] 1.0 {ratio} 0.9-2.4 [facility] Serum or plasma calcium jac urement (mass/volume)Ordered By: Dr. Schmidt on 09-13-2022 Calcium [Mass/Vol] 9.0 mg/dL 8.5-10.1 [facility] Serum or plasma creatinine m easurement (mass/volume)Ordered By: Dr. Schmidt on 09-13-2022 Creatinine [Mass/Vol] 0.59 mg/dL 0.55-1.02 [facility] Comment on above: The validity of the calculated GFR & GFRAA in patients over 70 years has not been determined. Clinical correlation is essential. Serum or plasma urea nitroge n measurement (mass/volume)Ordered By: Dr. Schmidt on 09-13-2022 Urea nitrogen [Mass/Vol] 18 mg/dL 7-18 [facility] Thin prep Papanicolaou smear with manual screeningOrdered By: Dr. Schmidt on 09-13-2022 Thin prep Papanicolaou smear with manual screening 29 U/L 15-37 [facility] Thin prep Papanicolaou smear with manual screening 5 5-15 [facility] Absolute lymphocyte countOrd ered By: Dr. Schmidt on 06-10-2022 Lymphocytes Auto (Unsp spec) [#/Vol] 1.12 10*3/uL 0.83-4.51 [facility] Basophil percentageOrdered B y: Dr. Schmidt on 06-10-2022 Basophils/100 WBC (Bld) 0.7 % 0-[address] [facility] Bilirubin [Mass/Vol] 0.40 mg/dL 0.20-1.00 [facility] Comment on above: For patients on eltr ombopag therapy, use of Dimension [place] TBIL is not recommended. Chloride [Moles/Vol] 104 mmol/L 98-107 [facility] Eosinophils/100 WBC (Bld) 3.9 % 0-5 [facility] Glucose [Mass/Vol] 81 mg/dL 74-106 [facility] Neutrophils (Bld) [#/Vol] 2.7 10*3/uL 2.0-7.7 [facility] Neutrophils/100 WBC (Bld) 60.3 % 47-70 [facility] Potassium [Moles/Vol] 3.8 mmol/L 3.5-5.1 [facility] Protein [Mass/Vol] 6.6 g/dL 6.4-8.2 [facility] Sodium [Moles/Vol] 140 mmol/L 136-145 [facility] WBC (Bld) [#/Vol] 4.4 10*3/uL 4.4-11.0 [facility] Blood erythrocytes count (nu mber/volume)Ordered By: Dr. Schmidt on 06-10-2022 RBC (Bld) [#/Vol] 4.20 10*6/uL 4.2-5.4 [facility] Blood hemoglobin measurement (mass/volume)Ordered By: Dr. Schmidt on 06-10-2022 Hemoglobin (Bld) [Mass/Vol] 13.4 g/dL 12.0-15.0 [facility] Blood lymphocytes/100 leukoc ytesOrdered By: Dr. Schmidt on 06-10-2022 Lymphocytes/100 WBC (Bld) 25.5 % 19-41 [facility] Blood monocytes/100 leukocyt esOrdered By: Dr. Schmidt on 06-10-2022 Monocytes/100 WBC (Bld) 8.9 % 0-[address] [facility] Blood platelet mean volumeOr dered By: Dr. Schmidt on 06-10-2022 Platelet mean volume (Bld) [Entitic vol] 9.6 fL 6.2-12.0 [facility] Determination of erythrocyte mean corpuscular volume (MCV)Ordered By: Dr. Schmidt on 06-10-2022 MCV (RBC) [Entitic vol] 94.8 fL 81-[address] [facility] Hematocrit Auto (Bld) [Volum e fraction]Ordered By: Dr. Schmidt on 06-10-2022 Hematocrit (Bld) [Volume fraction] 39.8 % 37-47 [facility] Laboratory - Chemistry and C hemistry - challengeOrdered By: Dr. Schmidt on 06-10-2022 ALP [Catalytic activity/Vol] 97 U/L 45-117 [facility] ALT [Catalytic activity/Vol] 34 U/L 13-56 [facility] CO2 [Moles/Vol] 30.0 mmol/L 21.0-32.0 [facility] Globulin (S) [Mass/Vol] 3.5 g/dL 2.2-4.[address] [facility] Urea nitrogen/Creatinine [Mass ratio] 26.2 mg/mg 10-20 [facility] - Hematology and Cell countsOrdered By: Dr. Schmidt on 06-10-2022 Erythrocyte distribution width (RBC) [Entitic vol] 41.8 fL 35.1-43.9 [facility] Erythrocyte distribution width (RBC) [Ratio] 12.1 % 11.6-14.6 [facility] Immature granulocytes/100 WBC (Bld) 0.700 % 0.0-0.9 [facility] Comment on above: IG% - Immature Granu locytes (promyelocytes, myelocytes and metamyelocytes) > 1% indicates that a LEFT SHIFT is Present. MCH (RBC) [Entitic mass] 31.9 pg 27.0-32.0 [facility] Nucleated RBC/100 WBC (Bld) [Ratio] 0 % 0-5 [facility] MCHC Auto (RBC) [Mass/Vol]Or dered By: Dr. Schmidt on 06-10-2022 MCHC (RBC) [Mass/Vol] 33.7 g/dL 32-36 [facility] No Panel InformationOrdered By: Dr. Schmidt on 06-10-2022 Estimated GFR (MDRD) Amer 120 mL/min >60 [facility] Comment on above: GFR Calc Estimated GFR (MDRD) Non-Af Amer 99 mL/min >60 [facility] Comment on above: Non- GFR Calc Platelets bldOrdered By: Dr. Schmidt on 06-10-2022 Platelets (Bld) [#/Vol] 268 10*3/uL 150-450 [facility] Serum or plasma albumin jac urement (mass/volume)Ordered By: Dr. Schmidt on 06-10-2022 Albumin [Mass/Vol] 3.1 g/dL 3.2-5.0 [facility] Serum or plasma albumin/glob ulin mass ratioOrdered By: Dr. Schmidt on 06-10-2022 Albumin/Globulin [Mass ratio] 0.9 {ratio} 0.9-2.4 [facility] Serum or plasma calcium jac urement (mass/volume)Ordered By: Dr. Schmidt on 06-10-2022 Calcium [Mass/Vol] 9.0 mg/dL 8.5-10.1 [facility] Serum or plasma creatinine m easurement (mass/volume)Ordered By: Dr. Schmidt on 06-10-2022 Creatinine [Mass/Vol] 0.65 mg/dL 0.55-1.02 [facility] Comment on above: The validity of the calculated GFR & GFRAA in patients over 70 years has not been determined. Clinical correlation is essential. Serum or plasma urea nitroge n measurement (mass/volume)Ordered By: Dr. Schmidt on 06-10-2022 Urea nitrogen [Mass/Vol] 17 mg/dL 7-18 [facility] Thin prep Papanicolaou smear with manual screeningOrdered By: Dr. Schmidt on 06-10-2022 Thin prep Papanicolaou smear with manual screening 30 U/L 15-37 [facility] Thin prep Papanicolaou smear with manual screening 6 5-15 [facility] ROSIE SCREENINGon 04-01-2022 [facility] ANES POSTPROC EVALon 11-10-2 022 ANES POSTPROC EVAL HNO ID: [id number] Author: Pamella Trujillo APRN.CARE MANAGER CNA Service: Anesthesiology Author Type: Nurse Manufacturing Plant Technician Type: Anesthesia Postprocedure Evaluation Filed: 03/25/2022 11:53 AM Note Text: POST ANESTHESIA EVALUATION NOTE : 1960 Procedure Summary Date: 03/25/22 Room / Location: [facility]ERY Anesthesia Start: 1121 Anesthesia Stop: 1152 Procedure: COLONOSCOPY SCREENING Diagnosis: Family history of colon cancer Scheduled Providers: Joelle Casas MD; Pamella Trujillo APRN.CARE MANAGER CNA Responsible Provider: Pamella Trujillo APRN.CARE MANAGER CNA Anesthesia Type: MAC ASA Status: 2 Anesthesia [...] Anesthesia Observations No Documentation SIGNATURE: Pamella Trujillo APRN.CARE MANAGER CNA PATIENT NAME: Serafin Pruett DATE: March 25, 2022 TIME: 11:52 AM CSN: [id number] [facility] ANES PRE-OPon 03-25-2022 ANES PRE-OP HNO ID: [id number] Author: Pamella Trujillo APRN.CARE MANAGER CNA Service: Anesthesiology Author Type: Nurse Manufacturing Plant Technician Type: Anesthesia Preprocedure Evaluation Filed: 03/25/2022 11:02 AM Note Text: ANESTHESIOLOGY DAY OF SURGERY NOTE : 1960 Procedure Information Date/Time: 03/25/22 1130 Scheduled providers: Joelle Casas MD; Pamella Trujillo APRN.CARE MANAGER CNA Procedure: COLONOSCOPY SCREENING Location: [facility] Estimated body mass index is 31.12 kg/m? as calculated from the following: Height as of 03/22/22: 165.1 cm (5' 5"). Weight as of 03/22/22: 84.8 kg (187 [...] and consent discussed: yes. Patient / Responsible [employer] agrees to proceed: yes Patient / [...] March 25, 2022 TIME: 11:01 AM CSN: [id number] [facility] BRIEF OP NOTon 03-25-2022 BRIEF OP NOT HNO ID: [id number] Author: Joelle Casas MD Service: General Surgery Author Type: Physician Type: Brief Op Note Filed: 03/25/2022 11:49 AM Note Text: BRIEF OPERATIVE NOTE SURGERY DATE: 03/25/2022 Incision/Procedure Start Time: 11:25 cecal intubation time: 11:38 Incision Close/Procedure End Time: 11:47 Surgeon(s)/Procedurali st(s) and Bone Grinder(s): [email or web address] Procedures: colonoscopy Anesthesia: MAC Findings: hemorrhoids Estimated Blood Loss: 0 ml Specimens: None Complications: None Preop Diagnosis: screening for colon cancer - high risk family history of colon cancer Postop Diagnosis: same as above, hemorrhoids SIGNATURE: Joelle Casas MD PATIENT NAME: Serafin Pruett DATE: March 25, 2022 TIME: 11:48 AM Acct: [id number] [facility] HISTORY PHYSICALon HISTORY PHYSICAL HNO ID: [id number] Author: Joelle Casas MD Service: General Surgery [...] ANKLE AND FOOT CARDIAC CATHETERIZATION HX fall of 2013 [...] Colon Cancer Father other (triple bypass) Father VT x 2 other (near kidney/liver failure) Father [...] (more content not included)... Normal [facility] OPERATIVE NOon 03-25-2022 OPERATIVE NO HNO ID: [id number] Author: Joelle Casas MD Service: General Surgery Author Type: Physician Type: Operative Report Filed: 03/26/2022 7:28 AM Note Text: [facility] - Operative Report - [place] : 1960 AGE: 62. SEX: F PATIENT TYPE: O HOSP SVC: LOCATION: ATTENDING PHYSICIAN: PAMELLA REY NUMBER: [id number] DATE OF SURGERY/PROCEDURE: 03/25/2022 INCISION/PROCEDURE START TIME: 11:25 AM INCISION CLOSE/PROCEDURE END TIME: 11:47 AM PREOPERATIVE DIAGNOSIS: Family history of colon cancer. POSTOPERATIVE DIAGNOSIS: Family history of colon cancer and hemorrhoids. SURGEON: Joelle Casas MD COLUMNIST: No Additional Staff SURGERY/PROCEDURE: Screening colonoscopy for high risk for colon cancer. ANESTHESIA: Monitored anesthesia care. LOCATION: [facility]. FINDINGS: Hemorrhoids. INDICATIONS: Serafin Pruett is [...] ESTIMATED BLOOD LOSS: None. Joelle Casas MD LW:[id number] Normal [facility] Absolute lymphocyte countOrd ered By: Dr. Schmidt on 03-08-2022 Lymphocytes Auto (Unsp spec) [#/Vol] 1.24 10*3/uL 0.83-4.51 [facility] Basophil percentageOrdered B y: Dr. Schmidt on 03-08-2022 Basophils/100 WBC (Bld) 0.9 % 0-[address] [facility] Bilirubin [Mass/Vol] 0.50 mg/dL 0.20-1.00 [facility] Comment on above: For patients on eltr ombopag therapy, use of Dimension [place] TBIL is not recommended. Chloride [Moles/Vol] 107 mmol/L 98-107 [facility] Eosinophils/100 WBC (Bld) 4.5 % 0-5 [facility] Glucose [Mass/Vol] 73 mg/dL 74-106 [facility] Neutrophils (Bld) [#/Vol] 2.7 10*3/uL 2.0-7.7 [facility] Neutrophils/100 WBC (Bld) 58.2 % 47-70 [facility] Potassium [Moles/Vol] 4.2 mmol/L 3.5-5.1 [facility] Protein [Mass/Vol] 6.7 g/dL 6.4-8.2 [facility] Sodium [Moles/Vol] 141 mmol/L 136-145 [facility] WBC (Bld) [#/Vol] 4.7 10*3/uL 4.4-11.0 [facility] Blood erythrocytes count (nu mber/volume)Ordered By: Dr. Schmidt on 03-08-2022 RBC (Bld) [#/Vol] 4.17 10*6/uL 4.2-5.4 [facility] Blood hemoglobin measurement (mass/volume)Ordered By: Dr. Schmidt on 03-08-2022 Hemoglobin (Bld) [Mass/Vol] 13.2 g/dL 12.0-15.0 [facility] Blood lymphocytes/100 leukoc ytesOrdered By: Dr. Schmidt on 03-08-2022 Lymphocytes/100 WBC (Bld) 26.4 % 19-41 [facility] Blood monocytes/100 leukocyt esOrdered By: Dr. Schmidt on 03-08-2022 Monocytes/100 WBC (Bld) 9.6 % 0-[address] [facility] Blood platelet mean volumeOr dered By: Dr. Schmidt on 03-08-2022 Platelet mean volume (Bld) [Entitic vol] 10.3 fL 6.2-12.0 [facility] Determination of erythrocyte mean corpuscular volume (MCV)Ordered By: Dr. Schmidt on 03-08-2022 MCV (RBC) [Entitic vol] 92.3 fL 81-[address] [facility] Hematocrit Auto (Bld) [Volum e fraction]Ordered By: Dr. Schmidt on 03-08-2022 Hematocrit (Bld) [Volume fraction] 38.5 % 37-47 [facility] Laboratory - Chemistry and C hemistry - challengeOrdered By: Dr. Schmidt on 03-08-2022 ALP [Catalytic activity/Vol] 101 U/L 45-117 [facility] ALT [Catalytic activity/Vol] 30 U/L 13-56 [facility] CO2 [Moles/Vol] 32.0 mmol/L 21.0-32.0 [facility] Globulin (S) [Mass/Vol] 3.4 g/dL 2.2-4.[address] [facility] Urea nitrogen/Creatinine [Mass ratio] 21.5 mg/mg 10-20 [facility] Laboratory - Hematology and Cell countsOrdered By: Dr. Schmidt on 03-08-2022 Erythrocyte distribution width (RBC) [Entitic vol] 40.8 fL 35.1-43.9 [facility] Erythrocyte distribution width (RBC) [Ratio] 12.3 % 11.6-14.6 [facility] Immature granulocytes/100 WBC (Bld) 0.400 % 0.0-0.9 [facility] Comment on above: IG% - Immature Granu locytes (promyelocytes, myelocytes and metamyelocytes) > 1% indicates that a LEFT SHIFT is Present. MCH (RBC) [Entitic mass] 31.7 pg 27.0-32.0 [facility] Nucleated RBC/100 WBC (Bld) [Ratio] 0 % 0-5 [facility] MCHC Auto (RBC) [Mass/Vol]Or dered By: Dr. Schmidt on 03-08-2022 MCHC (RBC) [Mass/Vol] 34.3 g/dL 32-36 [facility] No Panel InformationOrdered By: Dr. Schmidt on 03-08-2022 Estimated GFR (MDRD) Amer 129 mL/min >60 [facility] Comment on above: GFR Calc Estimated GFR (MDRD) Non-Af Amer 107 mL/min >60 [facility] Comment on above: Non- GFR Calc Platelets bldOrdered By: Dr. Schmidt on 03-08-2022 Platelets (Bld) [#/Vol] 247 10*3/uL 150-450 [facility] Serum or plasma albumin jac urement (mass/volume)Ordered By: Dr. Schmidt on 03-08-2022 Albumin [Mass/Vol] 3.3 g/dL 3.2-5.0 [facility] Serum or plasma albumin/glob ulin mass ratioOrdered By: Dr. Schmidt on 03-08-2022 Albumin/Globulin [Mass ratio] 1.0 {ratio} 0.9-2.4 [facility] Serum or plasma calcium jac urement (mass/volume)Ordered By: Dr. Schmidt on 03-08-2022 Calcium [Mass/Vol] 9.2 mg/dL 8.5-10.1 [facility] Serum or plasma creatinine m easurement (mass/volume)Ordered By: Dr. Schmidt on 03-08-2022 Creatinine [Mass/Vol] 0.60 mg/dL 0.55-1.02 [facility] Comment on above: The validity of the calculated GFR & GFRAA in patients over 70 years has not been determined. Clinical correlation is essential. Serum or plasma urea nitroge n measurement (mass/volume)Ordered By: Dr. Schmidt on 03-08-2022 Urea nitrogen [Mass/Vol] 13 mg/dL 7-18 [facility] Thin prep Papanicolaou smear with manual screeningOrdered By: Dr. Schmidt on 03-08-2022 Thin prep Papanicolaou smear with manual screening 37 U/L 15-37 [facility] Thin prep Papanicolaou smear with manual screening 2 5-15 [facility] Absolute lymphocyte counton 12-28-2021 Lymphocytes Auto (Unsp spec) [#/Vol] 1.07 10*3/uL 0.83-4.51 [facility] Work Phone: Basophil percentageon 2021 Basophils/100 WBC (Bld) 0.8 % 0-[address] [facility] Work Phone: Bilirubin [Mass/Vol] 0.30 mg/dL 0.20-1.00 [facility] Work Phone: Comment on above: For patients on eltr ombopag therapy, use of Dimension [place] TBIL is not recommended. Chloride [Moles/Vol] 105 mmol/L 98-107 [facility] Work Phone: Eosinophils/100 WBC (Bld) 5.7 % 0-5 [facility] Work Phone: Glucose [Mass/Vol] 90 mg/dL 74-106 [facility] Work Phone: Neutrophils (Bld) [#/Vol] 3.0 10*3/uL 2.0-7.7 [facility] Work Phone: Neutrophils/100 WBC (Bld) 61.2 % 47-70 [facility] Work Phone: Potassium [Moles/Vol] 3.7 mmol/L 3.5-5.1 [facility] Work Phone: Protein [Mass/Vol] 6.7 g/dL 6.4-8.2 [facility] Work Phone: Sodium [Moles/Vol] 141 mmol/L 136-145 [facility] Work Phone: WBC (Bld) [#/Vol] 4.9 10*3/uL 4.4-11.0 [facility] Work Phone: Blood erythrocytes count (nu mber/volume)on 12-28-2021 RBC (Bld) [#/Vol] 4.05 10*6/uL 4.2-5.4 [facility] Work Phone: Blood hemoglobin measurement (mass/volume)on 12-28-2021 Hemoglobin (Bld) [Mass/Vol] 12.7 g/dL 12.0-15.0 [facility] Work Phone: Blood lymphocytes/100 leukoc yteson 12-28-2021 Lymphocytes/100 WBC (Bld) 21.9 % 19-41 [facility] Work Phone: Blood monocytes/100 leukocyt eson 12-28-2021 Monocytes/100 WBC (Bld) 10.2 % 0-[address] [facility] Work Phone: Blood platelet mean volumeon 12-28-2021 Platelet mean volume (Bld) [Entitic vol] 9.7 fL 6.2-12.0 [facility] Work Phone: Determination of erythrocyte mean corpuscular volume (MCV)on 12-28-2021 MCV (RBC) [Entitic vol] 93.8 fL 81-[address] [facility] Work Phone: Hematocrit Auto (Bld) [Volum e fraction]on 12-28-2021 Hematocrit (Bld) [Volume fraction] 38.0 % 37-47 [facility] Work Phone: Laboratory - Chemistry and C hemistry - challengeon 12-28-2021 ALP [Catalytic activity/Vol] 107 U/L 45-117 [facility] Work Phone: ALT [Catalytic activity/Vol] 33 U/L 13-56 [facility] Work Phone: CO2 [Moles/Vol] 27.0 mmol/L 21.0-32.0 [facility] Work Phone: Globulin (S) [Mass/Vol] 3.5 g/dL 2.2-4.[address] [facility] Work Phone: Urea nitrogen/Creatinine [Mass ratio] 17.5 mg/mg 10-20 [facility] Work Phone: Laboratory - Hematology and Cell countson 12-28-2021 Erythrocyte distribution width (RBC) [Entitic vol] 42.8 fL 35.1-43.9 [facility] Work Phone: Erythrocyte distribution width (RBC) [Ratio] 12.4 % 11.6-14.6 [facility] Work Phone: Immature granulocytes/100 WBC (Bld) 0.200 % 0.0-0.9 [facility] Work Phone: Comment on above: IG% - Immature Granu locytes (promyelocytes, myelocytes and metamyelocytes) > 1% indicates that a LEFT SHIFT is Present. MCH (RBC) [Entitic mass] 31.4 pg 27.0-32.0 [facility] Work Phone: Nucleated RBC/100 WBC (Bld) [Ratio] 0 % 0-5 [facility] Work Phone: MCHC Auto (RBC) [Mass/Vol]on 12-28-2021 MCHC (RBC) [Mass/Vol] 33.4 g/dL 32-36 [facility] Work Phone: No Panel Informationon 12-28 Estimated GFR (MDRD) Amer 124 mL/min >60 [facility] Work Phone: Comment on above: GFR Calc Estimated GFR (MDRD) Non-Af Amer 103 mL/min >60 [facility] Work Phone: Comment on above: Non- GFR Calc Platelets bldon 12-28-2021 Platelets (Bld) [#/Vol] 292 10*3/uL 150-450 [facility] Work Phone: Serum or plasma albumin jac urement (mass/volume)on 12-28-2021 Albumin [Mass/Vol] 3.2 g/dL 3.2-5.0 [facility] Work Phone: Serum or plasma albumin/glob ulin mass ratioon 12-28-2021 Albumin/Globulin [Mass ratio] 0.9 {ratio} 0.9-2.4 [facility] Work Phone: Serum or plasma calcium jac urement (mass/volume)on 12-28-2021 Calcium [Mass/Vol] 9.1 mg/dL 8.5-10.1 [facility] Work Phone: Serum or plasma creatinine m easurement (mass/volume)on 12-28-2021 Creatinine [Mass/Vol] 0.63 mg/dL 0.55-1.02 [facility] Work Phone: Comment on above: The validity of the calculated GFR & GFRAA in patients over 70 years has not been determined. Clinical correlation is essential. Serum or plasma urea nitroge n measurement (mass/volume)on 12-28-2021 Urea nitrogen [Mass/Vol] 11 mg/dL 7-18 [facility] Work Phone: Thin prep Papanicolaou smear with manual screeningon 12-28-2021 Thin prep Papanicolaou smear with manual screening 35 U/L 15-37 [facility] Work Phone: Thin prep Papanicolaou smear with manual screening 9 - [facility] Work Phone: Absolute lymphocyte counton 10-26-2021 Lymphocytes Auto (Unsp spec) [#/Vol] 1.40 10*3/uL 0.83-4.51 [facility] Work Phone: Basophil percentageon 2021 Basophils/100 WBC (Bld) 0.6 % 0-[address] [facility] Work Phone: Bilirubin [Mass/Vol] 0.30 mg/dL 0.20-1.00 [facility] Work Phone: Comment on above: For patients on eltr ombopag therapy, use of Dimension [place] TBIL is not recommended. Chloride [Moles/Vol] 105 mmol/L 98-107 [facility] Work Phone: Eosinophils/100 WBC (Bld) 4.2 % 0-5 [facility] Work Phone: Glucose [Mass/Vol] 97 mg/dL 74-106 [facility] Work Phone: Neutrophils (Bld) [#/Vol] 4.4 10*3/uL 2.0-7.7 [facility] Work Phone: Neutrophils/100 WBC (Bld) 66.4 % 47-70 [facility] Work Phone: Potassium [Moles/Vol] 3.9 mmol/L 3.5-5.1 [facility] Work Phone: Protein [Mass/Vol] 6.6 g/dL 6.4-8.2 [facility] Work Phone: Sodium [Moles/Vol] 140 mmol/L 136-145 [facility] Work Phone: WBC (Bld) [#/Vol] 6.7 10*3/uL 4.4-11.0 [facility] Work Phone: Blood erythrocytes count (nu mber/volume)on 10-26-2021 RBC (Bld) [#/Vol] 4.10 10*6/uL 4.2-5.4 [facility]: Blood hemoglobin measurement (mass/volume)on 10-26-2021 Hemoglobin (Bld) [Mass/Vol] 12.7 g/dL 12.0-15.0 [facility] Work Phone: Blood lymphocytes/100 leukoc yteson 10-26-2021 Lymphocytes/100 WBC (Bld) 21.0 % 19-41 [facility] Work Phone: Blood monocytes/100 leukocyt eson 10-26-2021 Monocytes/100 WBC (Bld) 7.5 % 0-[address] [facility] Work Phone: Blood platelet mean volumeon 10-26-2021 Platelet mean volume (Bld) [Entitic vol] 9.9 fL 6.2-12.0 [facility] Work Phone: Determination of erythrocyte mean corpuscular volume (MCV)on 10-26-2021 MCV (RBC) [Entitic vol] 92.2 fL 81-[address] [facility] Work [phone] Hematocrit Auto (Bld) [Volum e fraction]on 10-26-2021 Hematocrit (Bld) [Volume fraction] 37.8 % 37-47 [facility] Work Phone: Laboratory - Chemistry and C hemistry - challengeon 10-26-2021 ALP [Catalytic activity/Vol] 100 U/L 45-117 [facility] Work Phone: ALT [Catalytic activity/Vol] 35 U/L 13-56 [facility] Work Phone: CO2 [Moles/Vol] 31.0 mmol/L 21.0-32.0 [facility] Work Phone: Globulin (S) [Mass/Vol] 3.4 g/dL 2.2-4.[address] [facility] Work Phone: Urea nitrogen/Creatinine [Mass ratio] 20.4 mg/mg 10-20 [facility] Work Phone: Laboratory - Hematology and Cell countson 10-26-2021 Erythrocyte distribution width (RBC) [Entitic vol] 40.9 fL 35.1-43.9 [facility] Work Phone: Erythrocyte distribution width (RBC) [Ratio] 12.1 % 11.6-14.6 [facility] Work Phone: Immature granulocytes/100 WBC (Bld) 0.300 % 0.0-0.9 [facility] Work Phone: Comment on above: IG% - Immature Granu locytes (promyelocytes, myelocytes and metamyelocytes) > 1% indicates that a LEFT SHIFT is Present. MCH (RBC) [Entitic mass] 31.0 pg 27.0-32.0 [facility] Work Phone: Nucleated RBC/100 WBC (Bld) [Ratio] 0 % 0-5 [facility] Work Phone: MCHC Auto (RBC) [Mass/Vol]on 10-26-2021 MCHC (RBC) [Mass/Vol] 33.6 g/dL 32-36 [facility] Work Phone: No Panel Informationon 10-26 Estimated GFR (MDRD) Amer 112 mL/min >60 [facility] Work Phone: Comment on above: GFR Calc Estimated GFR (MDRD) Non-Af Amer 93 mL/min >60 [facility] Work Phone: Comment on above: Non- GFR Calc Platelets bldon 10-26-2021 Platelets (Bld) [#/Vol] 288 10*3/uL 150-450 [facility] Work Phone: Serum or plasma albumin jac urement (mass/volume)on 10-26-2021 Albumin [Mass/Vol] 3.2 g/dL 3.2-5.0 [facility] Work Phone: Serum or plasma albumin/glob ulin mass ratioon 10-26-2021 Albumin/Globulin [Mass ratio] 0.9 {ratio} 0.9-2.4 [facility] Work Phone: Serum or plasma calcium jac urement (mass/volume)on 10-26-2021 Calcium [Mass/Vol] 9.1 mg/dL 8.5-10.1 [facility] Work Phone: Serum or plasma creatinine m easurement (mass/volume)on 10-26-2021 Creatinine [Mass/Vol] 0.68 mg/dL 0.55-1.02 [facility] Work Phone: Comment on above: The validity of the calculated GFR & GFRAA in patients over 70 years has not been determined. Clinical correlation is essential. Serum or plasma urea nitroge n measurement (mass/volume)on 10-26-2021 Urea nitrogen [Mass/Vol] 14 mg/dL 7-18 [facility] Work Phone: Thin prep Papanicolaou smear with manual screeningon 10-26-2021 Thin prep Papanicolaou smear with manual screening 36 U/L 15-37 [facility] Work Phone: Thin prep Papanicolaou smear with manual screening 4 5-15 [facility] Work Phone: Absolute lymphocyte counton 08-19-2021 Lymphocytes Auto (Unsp spec) [#/Vol] 1.42 10*3/uL 0.83-4.51 [facility] Work Phone: Basophil percentageon 2021 Basophils/100 WBC (Bld) 0.7 % 0-[address] [facility] Work Phone: Bilirubin [Mass/Vol] 0.30 mg/dL 0.20-1.00 [facility] Work Phone: Comment on above: For patients on eltr ombopag therapy, use of Dimension [place] TBIL is not recommended. Chloride [Moles/Vol] 106 mmol/L 98-107 [facility] Work Phone: Eosinophils/100 WBC (Bld) 5.4 % 0-5 [facility] Work Phone: Glucose [Mass/Vol] 91 mg/dL 74-106 [facility] Work Phone: Neutrophils (Bld) [#/Vol] 3.2 10*3/uL 2.0-7.7 [facility] Work Phone: Neutrophils/100 WBC (Bld) 59.7 % 47-70 [facility] Work Phone: Potassium [Moles/Vol] 3.8 mmol/L 3.5-5.1 [facility] Work Phone: Protein [Mass/Vol] 6.7 g/dL 6.4-8.2 [facility] Work Phone: Sodium [Moles/Vol] 141 mmol/L 136-145 [facility] Work Phone: WBC (Bld) [#/Vol] 5.4 10*3/uL 4.4-11.0 [facility] Work Phone: Blood erythrocytes count (nu mber/volume)on 08-19-2021 RBC (Bld) [#/Vol] 4.20 10*6/uL 4.2-5.4 [facility] Work Phone: Blood hemoglobin measurement (mass/volume)on 08-19-2021 Hemoglobin (Bld) [Mass/Vol] 12.9 g/dL 12.0-15.0 [facility] Work Phone: Blood lymphocytes/100 leukoc yteson 08-19-2021 Lymphocytes/100 WBC (Bld) 26.4 % 19-41 [facility] Work Phone: Blood monocytes/100 leukocyt eson 08-19-2021 Monocytes/100 WBC (Bld) 7.6 % 0-[address] [facility] Work Phone: Blood platelet mean volumeon 08-19-2021 Platelet mean volume (Bld) [Entitic vol] 9.9 fL 6.2-12.0 [facility] Work Phone: Determination of erythrocyte mean corpuscular volume (MCV)on 08-19-2021 MCV (RBC) [Entitic vol] 92.1 fL 81-[address] [facility] Work Phone: Hematocrit Auto (Bld) [Volum e fraction]on 08-19-2021 Hematocrit (Bld) [Volume fraction] 38.7 % 37-47 [facility] Work Phone: Laboratory - Chemistry and C hemistry - challengeon 08-19-2021 ALP [Catalytic activity/Vol] 101 U/L 45-117 [facility] Work Phone: ALT [Catalytic activity/Vol] 28 U/L 13-56 [facility] Work Phone: CO2 [Moles/Vol] 33.0 mmol/L 21.0-32.0 [facility] Work Phone: Globulin (S) [Mass/Vol] 3.4 g/dL 2.2-4.[address] [facility] Work Phone: Urea nitrogen/Creatinine [Mass ratio] 16.3 mg/mg 10-20 [facility] Work Phone: Laboratory - Hematology and Cell countson 08-19-2021 Erythrocyte distribution width (RBC) [Entitic vol] 40.6 fL 35.1-43.9 [facility] Work Phone: Erythrocyte distribution width (RBC) [Ratio] 12.0 % 11.6-14.6 [facility] Work Phone: Immature granulocytes/100 WBC (Bld) 0.200 % 0.0-0.9 [facility] Work Phone: Comment on above: IG% - Immature Granu locytes (promyelocytes, myelocytes and metamyelocytes) > 1% indicates that a LEFT SHIFT is Present. MCH (RBC) [Entitic mass] 30.7 pg 27.0-32.0 [facility] Work Phone: Nucleated RBC/100 WBC (Bld) [Ratio] 0 % 0-5 [facility] Work Phone: MCHC Auto (RBC) [Mass/Vol]on 08-19-2021 MCHC (RBC) [Mass/Vol] 33.3 g/dL 32-36 [facility] Work Phone: No Panel Informationon 08-19 Estimated GFR (MDRD) Amer 80 mL/min >60 [facility] Work Phone: Comment on above: GFR Calc Estimated GFR (MDRD) Non-Af Amer 66 mL/min >60 [facility] Work Phone: Comment on above: Non- GFR Calc Platelets bldon 08-19-2021 Platelets (Bld) [#/Vol] 280 10*3/uL 150-450 [facility] Work Phone: Serum or plasma albumin jac urement (mass/volume)on 08-19-2021 Albumin [Mass/Vol] 3.3 g/dL 3.2-5.0 [facility] Work Phone: Serum or plasma albumin/glob ulin mass ratioon 08-19-2021 Albumin/Globulin [Mass ratio] 1.0 {ratio} 0.9-2.4 [facility] Work Phone: Serum or plasma calcium jac urement (mass/volume)on 08-19-2021 Calcium [Mass/Vol] 9.2 mg/dL 8.5-10.1 [facility] Work Phone: Serum or plasma creatinine m easurement (mass/volume)on 08-19-2021 Creatinine [Mass/Vol] 0.92 mg/dL 0.55-1.02 [facility] Work Phone: Comment on above: The validity of the calculated GFR & GFRAA in patients over 70 years has not been determined. Clinical correlation is essential. Serum or plasma urea nitroge n measurement (mass/volume)on 08-19-2021 Urea nitrogen [Mass/Vol] 15 mg/dL 7-18 [facility] Work Phone: Thin prep Papanicolaou smear with manual screeningon 08-19-2021 Thin prep Papanicolaou smear with manual screening 36 U/L 15-37 [facility] Work Phone: Thin prep Papanicolaou smear with manual screening 2 5-15 [facility] Work Phone: Basophil percentageon 2021 Chloride [Moles/Vol] 105 mmol/L 98-107 [facility] Work Phone: Glucose [Mass/Vol] 116 mg/dL 74-106 [facility] Work Phone: Comment on above: Fasting Glucose resu lt from 100 to 125 mg/dL suggests IMPAIRED HOMEOSTASIS per A.D.A. criteria. Potassium [Moles/Vol] 3.9 mmol/L 3.5-5.1 [facility] Work Phone: Sodium [Moles/Vol] 141 mmol/L 136-145 [facility] Work Phone: WBC (Bld) [#/Vol] 6.1 10*3/uL 4.4-11.0 [facility] Work Phone: Blood erythrocytes count (nu mber/volume)on 08-13-2021 RBC (Bld) [#/Vol] 4.34 10*6/uL 4.2-5.4 [facility] Work Phone: Blood hemoglobin measurement (mass/volume)on 08-13-2021 Hemoglobin (Bld) [Mass/Vol] 13.3 g/dL 12.0-15.0 [facility] Work Phone: Blood platelet mean volumeon 08-13-2021 Platelet mean volume (Bld) [Entitic vol] 10.2 fL 6.2-12.0 [facility] Work Phone: Determination of erythrocyte mean corpuscular volume (MCV)on 08-13-2021 MCV (RBC) [Entitic vol] 92.9 fL 81-[address] [facility] Work Phone: Hematocrit Auto (Bld) [Volum e fraction]on 08-13-2021 Hematocrit (Bld) [Volume fraction] 40.3 % 37-47 [facility] Work Phone: Laboratory - Chemistry and C hemistry - challengeon 08-13-2021 CO2 [Moles/Vol] 32.0 mmol/L 21.0-32.0 [facility] Work Phone: Urea nitrogen/Creatinine [Mass ratio] 20.5 mg/mg 10-20 [facility] Work Phone: Laboratory - Hematology and Cell countson 08-13-2021 Erythrocyte distribution width (RBC) [Entitic vol] 41.4 fL 35.1-43.9 [facility] Work Phone: Erythrocyte distribution width (RBC) [Ratio] 12.0 % 11.6-14.6 [facility] Work Phone: MCH (RBC) [Entitic mass] 30.6 pg 27.0-32.0 [facility] Work Phone: MCHC Auto (RBC) [Mass/Vol]on 08-13-2021 MCHC (RBC) [Mass/Vol] 33.0 g/dL 32-36 [facility] Work Phone: No Panel Informationon 08-13 D-Dimer Quantitative (PE/DVT) 0.59 FEU/ug/m 0.27-0.49 [facility] Work Phone: Comment on above: D-Dimer ELEVATED (>0 .49): Additional studies and clinicalassessments are indicated to conclude diagnosis of:Deep Vein Thrombosis (DVT) or Pulmonary Embolism (PE) Estimated GFR (MDRD) Amer 104 mL/min >60 [facility] Work Phone: Comment on above: GFR Calc Estimated GFR (MDRD) Non-Af Amer 86 mL/min >60 [facility] Work Phone: Comment on above: Non- GFR Calc Platelets bldon 08-13-2021 Platelets (Bld) [#/Vol] 287 10*3/uL 150-450 [facility] Work Phone: Serum or plasma calcium jac urement (mass/volume)on 08-13-2021 Calcium [Mass/Vol] 8.9 mg/dL 8.5-10.1 [facility] Work Phone: Serum or plasma creatinine m easurement (mass/volume)on 08-13-2021 Creatinine [Mass/Vol] 0.73 mg/dL 0.55-1.02 [facility] Work Phone: Comment on above: The validity of the calculated GFR & GFRAA in patients over 70 years has not been determined. Clinical correlation is essential. Serum or plasma urea nitroge n measurement (mass/volume)on 08-13-2021 Urea nitrogen [Mass/Vol] 15 mg/dL 7-18 [facility] Work Phone: Thin prep Papanicolaou smear with manual screeningon 08-13-2021 Thin prep Papanicolaou smear with manual screening 4 5-15 [facility] Work Phone: Laboratory - Microbiology an d Antimicrobial susceptibilityon 05-27-2021 SARS-CoV-2 (COVID-19) RNA SAMANTHA+probe Ql (Unsp spec) Not detected Not Detect [facility] Work Phone: Comment on above: Normal Reference [...] current medications (procedure) Done Invalid Interpretation Code [employer] Phone: [phone] Fall risk assessment No Invalid Interpretation Code [employer] Work Phone: [phone] Protein mass conc Done Invalid Interpretation Code [employer] Work Phone: [phone] Lab Report: Lipid Profileon 01-20-2017 Cholesterol 144 mg/dL Invalid Interpretation Code 200 [employer] Work Phone: [phone] Cholesterol 84 mg/dL Invalid Interpretation Code [employer] Work Phone: [phone] Cholesterol 50 mg/dL Invalid Interpretation Code 0-130 [employer] Phone: [phone] Triglyceride 50 mg/dL Invalid Interpretation Code [employer] Work Phone: [phone] low density lipoproteins 10 mg/dL Invalid Interpretation Code 5-40 [employer] Phone: [phone] Lab Report: Liver Profileon 01-20-2017 Alanine aminotransferase (ALT) 25 U/L Invalid Interpretation Code 12-78 [employer] Work Phone: [phone] Albumin 3.5 g/dL Invalid Interpretation Code 3.4-5.0 [employer] Work Phone: [phone] Alkaline phosphatase (ALP) 91 U/L Invalid Interpretation Code 45-117 [employer] Work Phone: [phone] ALP enzyme act/vol (Bld) 91 U/L Invalid Interpretation Code 45-117 [facility] Work Phone: [phone] Aspartate aminotransferase (AST) 26 U/L Invalid Interpretation Code 15-37 [facility] Work Phone: [phone] Bilirubin (direct) 0.16 mg/dL Invalid Interpretation Code 0.00-0.30 [facility] Work Phone: [phone] Bilirubin (total) 0.50 mg/dL Invalid Interpretation Code 0.20-1.00 [facility] Work Phone: [phone] Globulin 3.2 g/dL Invalid Interpretation Code 2.3-3.5 [facility] Work Phone: [phone] Globulin mass conc (S) 3.2 g/dL 2.3-3.5 [facility] Work Phone: [phone] Protein 6.7 g/dL Invalid Interpretation Code 6.4-8.2 [facility] Work Phone: [phone] Office Visiton 07-05-2016 Dietary management education, guidance, and counseling (procedure) yes Invalid Interpretation Code [facility] Work Phone: [phone] Documentation of current medications (procedure) Done Invalid Interpretation Code [facility] Work Phone: [phone] 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 Left ventricular Ejection fraction 65 % Invalid Interpretation Code [facility] Work Phone: [phone] Office Visit: postop surgery 16on 12-29-2015 Tobacco smoking status NHIS Never Invalid Interpretation Code [facility] Work Phone: [phone] Tobacco smoking status NHIS Never smoker Invalid Interpretation Code [facility] Work Phone: [phone] Tobacco use CPHS Never smoker Invalid Interpretation Code [facility] Work Phone: [phone] Office Visit: eval soft tiss ue mass left medial foreheadon 10-06-2015 Alcoholism counseling (procedure) no Invalid Interpretation Code [facility] Work Phone: [phone] Protein mass conc no Invalid Interpretation Code [facility] Work Phone: Office Visiton 05-27-2015 cardiac risk group B Invalid Interpretation Code [facility] Work Phone: [phone] General cardiovascular disease 10Y risk [#] [place].D'Agostedu[place] 3 % Invalid Interpretation Code [facility] Work Phone: [phone] Lab Report: Liver Profileon 05-07-2014 ALK P 91 U/L Invalid Interpretation Code 50-136 [facility] Work Phone: [phone] GE use only - for [employer] import when terms are not otherwise specified 91 U/L Invalid Interpretation Code 50-136 [facility] Work Phone: [phone] Lab Report: CBCDon 4 Absolute Neutrophil count 3.1 X10 3/UL Normal 2.0-7.7 [facility] Work Phone: [phone] ANC 3.1 X10 3/UL Normal 2.0-7.7 [facility] Work Phone: Basophils/100 leukocytes 0.7 % Normal 0-1 [facility] Work Phone: Basophils/100 WBC (Bld) 0.7 % Normal 0-1 [facility] Work Phone: Eosinophils/100 leukocytes 11.4 % High 0-5 [facility] Work Phone: Eosinophils/100 WBC (Bld) 11.4 % High 0-5 [facility] Work Phone: Erythrocytes (RBC) 4.39 10*6/uL Normal 4.2-5.[address] [facility] Work Phone: Hematocrit (HCT) 39.9 % Normal 37-47 [facility] Work Phone: Hematocrit Volume Fraction (Bld) 39.9 % Normal 37-47 [facility] Work Phone: Hemoglobin (HGB) 13.4 g/dL Normal 12.0-15.0 [facility] Work Phone: Lymphocytes/100 leukocytes 24.2 % Normal 19-41 [facility] Work Phone: Lymphocytes/100 WBC (Bld) 24.2 % Normal 19-41 [facility] Work Phone: MCH 30.5 pg Normal 27.0-32.0 [facility] Work Phone: MCH Entitic mass (RBC) 30.5 pg Normal 27.0-32.0 [facility] Work Phone: MCHC 33.6 G/GL Normal 32-36 [facility] Work Phone: [phone] MCHC mass conc (RBC) 33.6 G/GL Normal 32-[address] [facility] Work Phone: MCV 90.9 fL Normal 81-99 [facility] Work Phone: [phone] MCV Entitic volume (RBC) 90.9 fL Normal 81-99 [facility] Work Phone: Monocytes/100 leukocytes 7.2 % Normal 0-10 [facility] Work Phone: Monocytes/100 WBC (Bld) 7.2 % Normal 0-10 [facility] Work Phone: Neutrophils/100 leukocytes 56.1 % Normal 47-70 [facility] Work Phone: Neutrophils/100 WBC (Bld) 56.1 % Normal 47-70 [facility] Work Phone: [phone] Platelet mean volume Entitic volume (Bld) 9.9 fL Normal 6.2-12.0 [facility] Work Phone: Platelets 256 10*3/mm3 Normal 150-450 [facility] Work Phone: Platelets #/vol (Bld) 256 10*3/mm3 Normal 150-450 [facility] Work Phone: PMV by Tierney 9.9 fL Normal 6.2-12.0 [facility] Work Phone: RBC #/vol (Bld) 4.39 10*6/uL Normal 4.2-5.4 [facility] Work Phone: WBC #/vol (Bld) 5.6 10*3/uL Normal 4.4-11.0 [facility] Work Phone: [phone] WBC (Leukocytes) 5.6 10*3/uL Normal 4.4-11.0 [facility] Work Phone: [phone] Lab Report: Linda 03-11-2014 Albumin/Globulin Ratio 1 {ratio} Normal 0.9-2.4 [facility] Work Phone: [phone] Anion gap 5 mmol/L Normal 5-15 [facility] Work Phone: [phone] Anion gap 4 molar conc 5 Normal 5-15 [facility] Work Phone: [phone] Anion gap molar conc 5 mmol/L Normal 5-[address] [facility] Work Phone: [phone] BUN/Creatinine Ratio 20.0 RATIO Normal 10-[address] [facility] Work Phone: [phone] Calcium 8.8 mg/dL Normal 8.5-10.1 [facility] Work Phone: [phone] Chloride 105 mmol/L Normal 98-107 [facility] Work Phone: [phone] CO2 30.0 mmol/L Normal 21.0-32.0 [facility] Work Phone: [phone] CO2 ppres (BldV) 30.0 mmol/L Normal 21.0-32.0 [facility] Work Phone: [phone] Creatinine 0.7 mg/dL Normal 0.6-1.0 [facility] Work Phone: [phone] eGFR (non-black) 93 mL/min/{1.73_m2} Normal >60 [facility] Work Phone: [phone] eGFR (non-black) 113 mL/min/{1.73_m2} Normal >60 [facility] Work Phone: [phone] GFRAA 113 mL/min Normal >60 [facility] Work Phone: [phone] Glucose 100 mg/dL Normal 70-110 [facility] Work Phone: [phone] Glucose mass conc 100 mg/dL Normal 70-110 [facility] Work Phone: [phone] Potassium 3.7 mmol/L Normal 3.5-5.1 [facility] Work Phone: Sodium 140 mmol/L Normal 136-145 [facility] Work Phone: [phone] Urea nitrogen 14 mg/dL Normal 7-18 [employer] [facility] Work Phone: [phone] Replaced Document: Tony RODRIGUES Observationson 02-15-2014 EKG QRS axis 25 deg Invalid Interpretation Code [facility] Work Phone: electrocardiogram interpretation Sinus Rhythm WITHIN NORMAL LIMITS Invalid Interpretation Code [employer] Work Phone: Interpretation Sinus Rhythm WITHIN NORMAL LIMITS Invalid Interpretation Code [employer] Work Phone: P [place] 34 deg Invalid Interpretation Code [employer] [facility] Work Phone: [phone] P wave axis, electrocardiogram 34 deg Invalid Interpretation Code [employer] Work Phone: [phone] [place] Interval 122 ms Invalid Interpretation Code [employer] [facility] Work Phone: [phone] [place] interval, electrocardiogram 122 ms Invalid Interpretation Code [employer] Work Phone: Pulse (Heart Rate) 89 /min Invalid Interpretation Code [employer] Work Phone: Pulse (Heart Rate) 422 ms Invalid Interpretation Code [facility] Work Phone: QRS axis, electrocardiogram 25 deg Invalid Interpretation Code [employer] Work Phone: [phone] QRS Duration 100 ms Invalid Interpretation Code [employer] Work Phone: QRS duration, electrocardiogram 100 ms Invalid Interpretation Code [employer] Work Phone: QT Interval new path ms Invalid Interpretation Code [facility] Work Phone: QT interval, electrocardiogram new path ms Invalid Interpretation Code [facility] Work Phone: T [place] -1 deg Invalid Interpretation Code [employer] Work Phone: T wave axis, electrocardiogram -1 deg Invalid Interpretation Code [employer] Work Phone: Clinical 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 Brett Leon MD Work Phone: [facility] 09-11-2024 10:54-0400 Body mass index (BMI) [Ratio] 34.9 kg/m2 Dr. Brett Leon MD Work Phone: [facility] 09-11-2024 10:54-0400 Body weight 95.[address] Brett Leon MD Work Phone: [phone] [place] [address] 09-11-2024 10:54-0400 Diastolic blood pressure 74 mm[Hg] Dr. Brett Leon MD Work Phone: [phone] [place] [address] 09-11-2024 10:54-0400 Heart rate 82 /min Dr. Brett Leon MD Work Phone: [phone] [place] [address] 09-11-2024 10:54-0400 Respiratory rate 16 /min Dr. Brett Leon MD Work Phone: [facility] 09-11-2024 10:54-0400 Systolic blood pressure 123 mm[Hg] Dr. Brett Leon MD Work Phone: [facility] 06-28-2024 09:05-0500 Body height 165.[address] Brett Leon MD Work Phone: [facility] 06-28-2024 09:05-0500 Body mass index (BMI) [Ratio] 34.9 kg/m2 Dr. Brett Leon MD Work Phone: [facility] 06-28-2024 09:05-0500 Body temperature 97.4 [degF] Dr. Brett Leon MD Work Phone: [facility] 06-28-2024 09:05-0500 Body weight 95.[address] Brett Leon MD Work Phone: [facility] 06-28-2024 09:05-0500 Diastolic blood pressure 80 mm[Hg] Dr. Brett Leon MD Work Phone: [facility] 06-28-2024 09:05-0500 Heart rate 79 /min Dr. Brett Leon MD Work Phone: [facility] 06-28-2024 09:05-0500 Respiratory rate 16 /min Dr. Brett Leon MD Work Phone: [facility] 06-28-2024 09:05-0500 SaO2% (BldA) [Mass fraction] 98 % Dr. Brett Leon MD Work Phone: [facility] 06-28-2024 09:05-0500 Systolic blood pressure 121 mm[Hg] Dr. Brett Leon MD Work Phone: [facility] 05-28-2024 15:25-0500 Body height 164.5 cm Franci Metcalf MD Work Phone: [facility] 05-28-2024 15:25-0500 Body mass index (BMI) [Ratio] 34.55 kg/m2 Franci Metcalf MD Work Phone: [facility] 05-28-2024 15:25-0500 Body weight 93.44 kg Franci Metcalf MD Work Phone: [facility] 05-28-2024 15:25-0500 Diastolic blood pressure 70 mm[Hg] Franci Metcalf MD Work Phone: [facility] 05-28-2024 15:25-0500 Systolic blood pressure 122 mm[Hg] Franci Metcalf MD Work Phone: [facility] 09-07-2023 09:59-0400 Diastolic blood pressure 82 mm[Hg] Dr. Brett Leon Work Phone: [facility] 09-07-2023 09:59-0400 Systolic blood pressure 140 mm[Hg] Dr. Brett Leon Work Phone: [facility] 09-07-2023 09:29-0400 Body height 165.[address] Brett Leon Work Phone: [facility] 09-07-2023 09:29-0400 Body mass index (BMI) [Ratio] 32.9 kg/m2 Dr. Brett Leon Work Phone: [facility] 09-07-2023 09:29-0400 Body weight 89.[address] Brett Leon Work Phone: [facility] 09-07-2023 09:29-0400 Heart rate 79 /min Dr. Brett Leon Work Phone: [facility] 09-07-2023 09:29-0400 Respiratory rate 18 /min Dr. Brett Leon Work Phone: [facility] 09-07-2023 09:29-0400 SaO2% (BldA) [Mass fraction] 100 % Dr. Brett Leon Work Phone: [facility] 05-07-2023 07:00-0500 Body temperature 97.8 [degF] Dr. Brett Leon Work Phone: [facility] 05-07-2023 07:00-0500 Diastolic blood pressure 78 mm[Hg] Dr. Brett Leon Work Phone: [facility] 05-07-2023 07:00-0500 Heart rate 64 /min Dr. Brett Leon Work Phone: [facility] 05-07-2023 07:00-0500 Respiratory rate 14 /min Dr. Brett Leon Work Phone: [facility] 05-07-2023 07:00-0500 SaO2% (BldA) [Mass fraction] 98 % Dr. Brett Leon Work Phone: [facility] 05-07-2023 07:00-0500 Systolic blood pressure 132 mm[Hg] Dr. Brett Leon Work Phone: [facility] 05-07-2023 02:33-0500 Body height 165.[address] Brett Leon Work Phone: [facility] 05-07-2023 02:33-0500 Body mass index (BMI) [Ratio] 35 kg/m2 Dr. Brett Leon Work Phone: [facility] 05-07-2023 02:33-0500 Body weight 95.[address] Brett Leon Work Phone: [facility] 04-13-2023 14:25-0500 Body height 165.1 cm Franci Metcalf MD Work Phone: [facility] 04-13-2023 14:25-0500 Body weight 91.17 kg Franci Metcalf MD Work Phone: [facility] 04-13-2023 14:25-0500 Diastolic blood pressure 74 mm[Hg] Franci Metcalf MD Work Phone: [facility] 04-13-2023 14:25-0500 Systolic blood pressure 122 mm[Hg] Franci Metcalf MD Work Phone: [facility] 02-14-2023 13:35-0400 Body mass index (BMI) [Ratio] 33.4 kg/m2 Dr. Brett Leon Work Phone: [facility] 02-14-2023 13:35-0400 Body weight 91.[address] Brett Leon Work Phone: [facility] 02-14-2023 13:35-0400 Diastolic blood pressure 85 mm[Hg] Dr. Brett Leon Work Phone: [facility] 02-14-2023 13:35-0400 Heart rate 80 /min Dr. Brett Leon Work Phone: [facility] 02-14-2023 13:35-0400 Respiratory rate 18 /min Dr. Brett Leon Work Phone: [facility] 02-14-2023 13:35-0400 SaO2% (BldA) [Mass fraction] 97 % Dr. Brett Leon Work Phone: [facility] 02-14-2023 13:35-0400 Systolic blood pressure 134 mm[Hg] Dr. Brett Leon Work Phone: [facility] 04-01-2022 09:06-0500 Body height 165.1 cm Franci Metcalf MD Work Phone: [facility] 04-01-2022 09:06-0500 Body weight 87.09 kg Franci Metcalf MD Work Phone: [facility] 04-01-2022 09:06-0500 Diastolic blood pressure 76 mm[Hg] Franci Metcalf MD Work Phone: [facility] 04-01-2022 09:06-0500 Systolic blood pressure 122 mm[Hg] Franci Metcalf MD Work Phone: [facility] 03-08-2022 08:10-0400 Body height 167.6 cm Diane Edgardo PA-C Work Phone: [facility] 03-08-2022 08:10-0400 Body temperature 96.91 [degF] Diane Tatum PA-C Work Phone: [facility] 03-08-2022 08:10-0400 Body weight 87.36 kg Diane Edgardo PA-C Work Phone: [facility] 03-08-2022 08:10-0400 Diastolic blood pressure 70 mm[Hg] Diane Edgardo PA-C Work Phone: [facility] 03-08-2022 08:10-0400 Heart rate 77 /min Diane Tatum PA-C Work Phone: [facility] 03-08-2022 08:10-0400 SaO2% (BldA) [Mass fraction] 100 % Diane Edgardo PA-C Work Phone: [facility] 03-08-2022 08:10-0400 Systolic blood pressure 114 mm[Hg] Diane Tatum PA-C Work Phone: [facility] 01-21-2022 15:14-0400 Body height 165.[address] Brett Leon Work Phone: [facility] Work Phone: 01-21-2022 15:14-0400 Body mass index (BMI) [Ratio] 31.9 kg/m2 Dr. Brett Leon Work Phone: [facility] Work Phone: 01-21-2022 15:14-0400 Body weight 87.[address] Brett Leon Work Phone: [facility] Work Phone: 01-21-2022 15:14-0400 Diastolic blood pressure 73 mm[Hg] Dr. Brett Leno Work Phone: [facility] Work Phone: 01-21-2022 15:14-0400 Heart rate 78 /min Dr. Brett Leon Work Phone: [facility] Work Phone: 01-21-2022 15:14-0400 Respiratory rate 16 /min Dr. Brett Leon Work Phone: [facility] Work Phone: 01-21-2022 15:14-0400 Systolic blood pressure 126 mm[Hg] Dr. Brett Leon Work Phone: [facility] Work Phone: 01-27-2017 11:59-0400 BMI (Body Mass Index) 26.62 kg/m2 [facility] Work Phone: 01-27-2017 11:59-0400 BP Diastolic 62 mm[Hg] [facility] Work Phone: 01-27-2017 11:59-0400 BP Systolic 124 mm[Hg] [facility] Work Phone: 01-27-2017 11:59-0400 Height 165.1 cm Claudia Castle [facility] Work Phone: 01-27-2017 11:59-0400 Pulse (Heart Rate) 80 /min Claudia Castle [facility] Work Phone: 01-27-2017 11:59-0400 Respiratory Rate 18 /min Claudia Castle [facility] Work Phone: 01-27-2017 11:59-0400 Weight 72.58 kg Claudia Castle [facility] Work Phone: 07-05-2016 08:43-0500 BMI (Body Mass Index) 29.62 kg/m2 Titi Craig NP [facility] Work Phone: 07-05-2016 08:43-0500 BP Diastolic 70 mm[Hg] Titi Craig EGG CASER [facility] Work Phone: 07-05-2016 08:43-0500 BP Systolic 128 mm[Hg] Titi Craig EGG CASER [facility] Work Phone: 07-05-2016 08:43-0500 BSA (Body Surface Area) 1.88 m2 Titi Craig EGG CASER [facility] Work Phone: 07-05-2016 08:43-0500 Height 165.1 cm Titi Craig EGG CASER [facility] Work Phone: 07-05-2016 08:43-0500 Pulse (Heart Rate) 78 /min Titi Craig EGG CASER [facility] Work Phone: 07-05-2016 08:43-0500 Respiratory Rate 18 /min Titi Craig EGG CASER [facility] Work Phone: 07-05-2016 08:43-0500 Weight 80.74 kg Titi Craig EGG CASER [facility] Work Phone: 12-29-2015 14:49-0400 Body Temperature 98.6 [degF] Titi Craig EGG CASER [facility] Work Phone: 02-15-2014 13:51-0400 Heart rate 89 /min Solange Gee RN [facility] Work Phone: 02-15-2014 13:51-0400 Heart rate 422 ms Solange Gee RN [facility] Work Phone: Encounters Encounter Date Encounter Type Care Provider Facility Start: 03-28-2025 [facility] Start: 03-19-2025 [facility] Start: 01-18-2025 End: 01-18-2025 ambulatory Pam Dickinson MD Work Phone: -Laboratory [employer] Start: 01-18-2025 End: 01-18-[address] Sonia Schmidt MD -[facility] Work Phone: Start: 01-18-2025 End: 01-18-2025 ambulatory [facility] Facility:[facility] Start: 10-30-2024 Non-patient / Non-visit Lashawn TAVAREZ -[facility] Work Phone: Start: 10-30-2024 [facility] Start: 10-29-2024 End: 10-29-[address] Brett Leon MD Work Phone: [facility] Work Phone: Start: 10-29-2024 End: 10-29-[address] Sonia Schmidt MD -[facility] Work Phone: Start: 10-29-2024 End: 10-29-2024 ambulatory [facility] Facility:[facility] Start: 10-12-[address] Keith Mccary MD -[facility] Work Phone: Start: 10-12-2024 ambulatory [facility] Start: 09-11-2024 End: 09-11-[address] Keith Mccray MD -[facility] Work Phone: Start: 09-11-2024 End: 09-11-2024 ambulatory Keith Mccray Facility:[facility] Start: 07-27-2024 End: 07-27-[address] Brett Leon MD Work Phone: [facility] Work Phone: Start: 07-27-2024 End: 07-27-[address] Sonia Schmidt MD -Laboratory, [place] Work Phone: Start: 07-27-2024 End: 07-27-2024 ambulatory Sonia Schmidt Facility:[facility] Start: 06-28-2024 End: 06-28-[address] Brock Martinez MD -[facility] Work Phone: Start: 06-28-2024 End: 06-28-2024 ambulatory Brock Martinez Facility:[facility] Start: 05-31-2024 [facility] Work Phone: Start: 05-31-2024 End: 05-31-2024 ambulatory Network Engineer Administrator [employer] Work Phone: OB/Gynecology [...] encounter status Franci Metcalf MD Work Phone: [facility] Start: 05-28-2024 End: 05-28-2024 ambulatory FRANCI METCALF Facility:[facility] Start: 05-28-2024 End: 05-28-2024 Subsequent hospital visit by physician Screen Mammo [facility] Mammogram Comment on above: Encounter for screen ing mammogram for malignant neoplasm of breast [Z12.31] Start: 05-25-2024 End: 05-25-[address] [facility] Work [facility]: Start: 05-25-2024 End: 05-25-2024 ambulatory Sonia Schmidt Facility:[facility] Start: 04-27-2024 End: 05-08-2024 Telephone encounter Franci Metcalf MD Work Phone: OB/Gynecology Comment on above: Orders Start: 04-03-2024 ambulatory Brett Leon Facility: [facility] Start: 04-03-2024 End: 04-03-2024 ambulatory Brett Leon Facility:[facility] Start: 09-07-2023 Non-patient / Non-visit Dr. Cristina Leon Work Phone: [facility] Start: 09-07-2023 End: 09-07-[address] Brett Leon Work Phone: [facility] Work Phone: Start: 09-07-2023 End: 09-07-[address] Brett Leon Work Phone: [facility]-Cardiovascul [facility] Services Work Phone: Start: 09-07-2023 End: 09-07-[address] Brett Leon Work Phone: [facility] Work Phone: Start: 09-06-2023 End: 09-06-[address] Brett Leon Work Phone: [facility] Work Phone: Start: 09-06-2023 End: 09-06-[address] Brett Leon Work Phone: [facility] [place] Work Phone: Start: 06-13-2023 End: 06-13-2023 ambulatory [facility] Work Phone: Start: 06-13-2023 End: 06-13-2023 Patient encounter procedure [facility] Work Phone: Start: 05-30-2023 End: 05-30-[address] Brett Leon Work Phone: [facility] Work Phone: Start: 05-30-2023 End: 05-30-[address] Brett Leon Work Phone: [facility] Work Phone: Start: 05-17-2023 End: 05-17-[address] Brett Leon Work Phone: [facility] Work Phone: Start: 05-17-2023 End: 05-17-[address] Brett Leon Work Phone: [facility] Work Phone: Start: 05-07-2023 End: 05-07-2023 Emergency department patient visit Dr. Brett Leon Work Phone: [facility]-Emergency Department Work Phone: Start: 04-14-2023 Documentation procedure Mammog elijah Coordinator [facility] Start: 04-14-2023 Letter encounter Mammography Coordinator [facility] Department Start: 04-13-2023 End: 04-13-2023 Patient encounter procedure Franci Metcalf MD Work Phone: OB/Gynecology Comment on above: Encounter for gyneco logical examination (general) (routine) without abnormal findings (Primary Dx); Encounter for screening mammogram for breast cancer Start: 04-13-2023 End: 04-13-2023 Patient encounter status Franci Metcalf MD Work Phone: [facility] Start: 04-13-2023 End: 04-13-2023 Subsequent hospital visit by physician Screen Mammo [facility] Mamm[facility] Comment on above: Encounter for screen ing mammogram for breast cancer [Z12.31] Start: 02-15-2023 End: 02-15-[address] Brett Leon Work Phone: [facility] Work Phone: Start: 02-14-2023 End: 02-14-[address] Brett Leon Work Phone: [facility] Work Phone: Start: 11-29-2022 End: 11-29-2022 ambulatory [facility] Work Phone: Start: 11-29-2022 End: 11-29-2022 Patient encounter procedure [facility] Work Phone: Start: 11-10-2022 End: 11-10-2022 ambulatory [facility] Work Phone: Start: 11-10-2022 End: 11-10-2022 Patient encounter procedure [facility] Work Phone: Start: 11-08-2022 End: 11-08-2022 ambulatory [facility] Work Phone: Start: 11-08-2022 End: 11-08-2022 Patient encounter procedure [facility]-Radiology, [facility] Work Phone: Start: 09-13-2022 End: 09-13-2022 ambulatory [facility] Work Phone: Start: 09-13-2022 End: 09-13-2022 Patient encounter procedure [facility] Start: 07-22-2022 Telephone encounter Joelle Torres MD Work Phone: General Surgery Comment on above: Results Start: 06-10-2022 End: 06-10-2022 ambulatory [facility] Work Phone: Start: 06-10-2022 End: 06-10-2022 Patient encounter procedure [facility] Start: 04-01-2022 Documentation procedure Mammog elijah Coordinator [facility] Start: 04-01-2022 Letter encounter Mammography Coordinator [facility] Department Start: 04-01-2022 End: 04-01-2022 Patient [...] Subsequent hospital visit by physician Screen Mammo [facility] Mammogram Comment on above: Encounter for gyneco logical examination (general) (routine) without abnormal findings [Z01.419] Start: 03-25-2022 ambulatory PAMELLA Rubalcava [place] Facility:[facility] Start: 03-11-2022 End: 03-11-[address] Brett Leon Work Phone: [facility] Work Phone: Start: 03-11-2022 End: 03-11-[address] Brett Leon Work Phone: [facility]-Occupational Therapy Start: 03-11-[address] Brett babcock Work Phone: [facility]-Occupational Therapy Start: 03-08-2022 End: 03-08-[address] Brett Leon Work Phone: [facility] Work Phone: Start: 03-08-2022 End: 03-08-2022 Patient encounter procedure Diane Reynoso PA-C Work Phone: General Surgery Comment on above: Encounter for screen ing for malignant neoplasm of colon (Primary Dx); Family history of colon cancer; Tortuous colon Start: 02-18-2022 Telephone encounter Joelle Torres MD Work Phone: General Surgery Comment on above: 03/25 COLON LODI Start: 01-21-2022 End: 01-21-[address] Bertt Leon Work Phone: [facility] Start: 12-30-2021 Registered Recurring [facility]-Occupational Therapy Start: 12-28-2021 End: 12-28-2021 [facility] Start: 10-26-2021 End: 10-26-2021 [facility] Start: 10-13-2021 End: 10-13-2021 Patient encounter [facility] Start: 08-19-2021 End: 08-19-2021 Patient encounter [facility] Start: 08-13-2021 End: 08-13-2021 Patient encounter procedure [facility]-Cat Scan, [facility] Start: 08-13-2021 End: 08-13-2021 [facility] encounter [facility] Start: 05-27-2021 End: 05-27-2021 [facility] Date Procedure Procedure Detail Performing Clinician Start: 10-12-2024 CT angiography of co ronary arteries Dr. Brett Leon MD Work Phone: Start: 05-31-2024 Us pelvic nonobstetr ic real-time [...] Plain chest X-ray Start: 03-30-2021 Mammography Diane Gra f PA-C [...] Author Start: 03-30-2026 HPV TESTING HPV TESTING [facility] Start: 03-30-2026 PAP TESTING PAP TESTING [facility] Start: 05-29-2025 End: 05-29-2025 Patient encounter procedure Mammogram Comment on above: Encounter for gyneco logical examination (general) (routine) without abnormal findings [Z01.419]; Encounter for screening mammogram for breast cancer [Z12.31] annual Start: 05-28-2025 BP Controlled (<130/80) BP Controlle d (<130/80) [facility] Start: 05-28-2025 Screening for malign ant neoplasm of breast Mammogram Screening [facility] Start: 02-25-2025 Urine microalbumin profile [facility] Start: 05-31-2024 End: 05-31-2024 Manual pelvic examination 05/31/2024 2:00 PM EST Procedure OB/Gynecology [address] [place] [id number] Remote, Network Engineer [facility] [address] [place] [id number] Pelvic pain in female [R10.2] OB/Gynecology Comment on above: Pelvic pain in femal e [R10.2] Start: 05-28-2024 End: 05-28-2024 Patient encounter procedure Mammogram Comment on above: Encounter for screen ing mammogram for malignant neoplasm of breast [Z12.31] annual Start: 05-28-2024 End: 05-28-2025 US Pelvis PELVIC US [facility] Routine Pelvic pain in female Expected: 05/28/2024, Expires: 05/28/2025 [facility] Comment on above: Expected: 05/28/2024 , Expires: 05/28/2025 Start: 04-13-2024 BP Controlled (<130/80) BP Controlle d (<130/80) [facility] Start: 04-13-2024 Mammography Mammogram Screening [facility] Start: 04-13-2024 Screening for malign ant neoplasm of breast Mammogram Screening [facility] Start: 03-27-2024 Covid-19 Vaccine ( season) Covid-19 Vaccine ( season) [facility] Start: 01-15-2024 Covid-19 Vaccine ( season) Covid-19 Vaccine ( season) [facility] Start: 01-15-2024 Influenza vaccination Influenza Vacc ine (#1) [facility] Start: 05-13-2023 Covid-19 Vaccine ( season) Covid-19 Vaccine ( season) [facility] Start: 05-07-2023 [facility] Start: 04-01-2023 BP CONTROLLED (<130/80) BP CONTROLLE D (<130/80) [facility] Start: 04-01-2023 Mammography [facility] Start: 03-08-2023 BP CONTROLLED (<130/80) BP CONTROLLE D (<130/80) [facility] Start: 01-14-2023 Covid-19 Vaccine ( season) Covid-19 Vaccine ( season) [facility] Start: 01-14-2023 Influenza vaccination Influenza Vacc ine (#1) [facility] Start: 05-16-2022 DEPRESSION ASSESSMENT DEPRESSION ASS ESSMENT [facility] Start: 03-31-2022 Colonoscopy COLONOSCOPY [facility] Start: 03-31-2022 COLORECTAL CANCER SCREENING COLORECTAL CANCER SCREENING [facility] Start: 03-31-2022 Screening for malign ant neoplasm of colon [facility] Start: 03-30-2022 Mammography MAMMOGRAM [facility] Start: 03-30-2022 Screening for malign ant neoplasm of cervix Cervical Cancer Screening [facility] Start: 01-20-2022 LIPID SCREEN LIPID SCREEN [facility] Start: 01-14-2022 Influenza vaccination INFLUENZA (#1) [facility] Start: 01-03-2022 Lipid 1996 panel - S serenity or Plasma Lipid Screening [facility] Start: 01-03-2022 Lipid panel Lipid Screening [facility] Start: 12-27-2021 COVID-19 VACCINE (5 - Booster for Moderna series) COVID-19 VACCINE (5 - Booster for Moderna series) [facility] Start: 05-16-2021 DEPRESSION ASSESSMENT DEPRESSION ASS ESSMENT [facility] Start: 08-04-2017 End: 08-04-2017 Appointment Appointment [facility] Work Phone: Start: 07-20-2017 End: 01-24-2017 *Hepatic Function Panel *Hepatic Function Panel [facility] Work Phone: Start: 07-20-2017 End: 01-24-2017 Lipid 1996 panel *Lipid Profile CC PCP [facility] Work Phone: Start: 07-20-2017 End: 01-24-2017 *Hepatic Function Panel *Hepatic Function Panel [facility] Work Phone: Start: 07-20-2017 End: 01-24-2017 Lipid panel [AGGREGATE] *Lipid Profile CC PCP [facility] Work Phone: Start: 01-27-2017 End: 01-27-2017 TRIPP ALMAGUER [facility] Work Phone: Start: 01-27-2017 End: 01-27-2017 Follow Up Appt 6 months Follow Up Appt 6 months [facility] Work Phone: Start: 01-27-2017 End: 01-27-2017 Neurology Referral Neurology Referral Radha Varghese MD, [address], [place], [address] [facility] Work Phone: Start: 01-27-2017 End: 01-27-2017 Stress Echocardiogram (treadmill) Stress Echocardiogram (treadmill) [facility] Work Phone: Start: 01-27-2017 End: 01-27-2017 Appointment Appointment [facility] Work Phone: Start: 01-27-2017 End: 01-27-2017 TRIPP ALMAGUER [facility] Work Phone: Start: 01-27-2017 End: 01-27-2017 Follow Up Appt 6 months Follow Up Appt 6 months [facility] Work Phone: Start: 01-27-2017 End: 01-27-2017 Neurology Referral Neurology Referral Radha Varghese MD, [address], [place], [address] [facility] Work Phone: Start: 01-27-2017 End: 01-27-2017 Stress Echocardiogram (treadmill) Stress Echocardiogram (treadmill) [facility] Work Phone: Start: 01-03-2017 End: 01-20-2017 *Hepatic Function Panel *Hepatic Function Panel [facility] Work Phone: Start: 01-03-2017 End: 01-20-2017 Lipid 1996 panel *Lipid Profile CC PCP [facility] Work Phone: Start: 01-03-2017 End: 01-20-2017 *Hepatic Function Panel *Hepatic Function Panel [facility] Work Phone: Start: 01-03-2017 End: 01-20-2017 Lipid panel [AGGREGATE] *Lipid Profile CC PCP [facility] Work Phone: Start: 09-23-2016 LIPID SCREEN LIPID SCREEN [facility] Start: 07-05-2016 End: 07-05-2016 TRIPP ALMAGUER [facility] Work Phone: Start: 07-05-2016 End: 07-05-2016 Follow Up Appt 6 months Follow Up Appt 6 months [facility] Work Phone: Start: 07-05-2016 End: 07-05-2016 DANAYN TRIPP [facility] Work Phone: Start: 07-05-2016 End: 07-05-2016 Follow Up Appt 6 months Follow Up Appt 6 months [facility] Work Phone: Start: 06-11-2016 End: 07-01-2016 *Hepatic Function Panel *Hepatic Function Panel [facility] Work Phone: Start: 06-11-2016 End: 07-01-2016 Lipid 1996 panel *Lipid Profile CC PCP [facility] Work Phone: Start: 06-11-2016 End: 07-01-2016 *Hepatic Function Panel *Hepatic Function Panel [facility] Work Phone: Start: 06-11-2016 End: 07-01-2016 Lipid panel [AGGREGATE] *Lipid Profile CC PCP [facility] Work Phone: Start: 12-29-2015 End: 01-01-2016 Follow Up Appt Other Follow Up Appt Other [facility] Work Phone: Start: 12-29-2015 End: 12-29-2015 Primary Care Physician Primary Care Physician Brett Leon, [facility], [address] [place] [address] [address], [place], [address] [facility] Work Phone: Start: 12-29-2015 End: 01-01-2016 Follow Up Appt Other Follow Up Appt Other [facility] Work Phone: Start: 12-29-2015 End: 12-29-2015 Primary Care Physician Primary Care Physician Brett Loen [facility], [address] [place] [address] [address], [place], [address] [facility] Work Phone: Start: 12-16-2015 End: 12-16-2015 DJN DANAYN [facility] Work Phone: Start: 12-16-2015 End: [...] Lipid 1996 panel *Lipid Profile CC PCP [facility] Work Phone: Start: 11-28-2015 End: 12-08-2015 *Hepatic Function Panel *Hepatic Function Panel [facility] Work Phone: Start: 11-28-2015 End: 12-08-2015 Lipid panel [AGGREGATE] *Lipid Profile CC PCP [facility] Work Phone: Start: 05-28-2015 End: 05-30-2015 *Hepatic Function Panel *Hepatic Function Panel [facility] Work Phone: Start: 05-28-2015 End: 05-30-2015 Lipid 1996 panel *Lipid Profile CC PCP [facility] Work Phone: Start: 05-28-2015 End: 05-30-2015 *Hepatic Function Panel *Hepatic Function Panel [facility] Work Phone: Start: 05-28-2015 End: 05-30-2015 Lipid panel [AGGREGATE] *Lipid Profile CC PCP [facility] Work Phone: Start: 05-27-2015 End: 12-16-2015 Complete sleep workup (PSG,CPAP as indicated) & Follow up Complete sleep workup (PSG,CPAP as indicated) & Follow up [facility] Work Phone: Start: 05-27-2015 End: 05-27-2015 TRIPP ALMAGUER [facility] Work Phone: Start: 05-27-2015 End: 05-27-2015 Follow Up Appt 6 months Follow Up Appt 6 months [facility] Work Phone: Start: 05-27-2015 End: 12-16-2015 Complete sleep workup (PSG,CPAP as indicated) & Follow up Complete sleep workup (PSG,CPAP as indicated) & Follow up [facility] Work Phone: Start: 05-27-2015 End: 05-27-2015 TRIPP ALMAGUER [facility] Work Phone: Start: 05-27-2015 End: 05-27-2015 Follow Up Appt 6 months Follow Up Appt 6 months [facility] Work Phone: Start: 11-11-2014 End: 11-25-2014 *Hepatic Function Panel *Hepatic Function Panel [facility] Work Phone: Start: 11-11-2014 End: 11-25-2014 Lipid 1996 panel *Lipid Profile CC PCP [facility] Work Phone: Start: 11-11-2014 End: 11-25-2014 *Hepatic Function Panel *Hepatic Function Panel [facility] [facility] Work Phone: Start: 11-11-2014 End: 11-25-2014 Lipid panel [AGGREGATE] *Lipid Profile CC PCP [facility] Work Phone: Start: 09-23-2014 DIABETES SCREEN DIABETES SCREEN [facility] Start: 09-23-2014 Diabetes Screening Diabetes Screenin g [facility] Start: 05-06-2014 End: 05-13-2014 *Hepatic Function Panel *Hepatic Function Panel [facility] Work Phone: Start: 05-06-2014 End: 05-13-2014 Lipid 1996 panel *Lipid Profile CC PCP [facility] Work Phone: Start: 05-06-2014 End: 05-13-2014 *Hepatic Function Panel *Hepatic Function Panel [facility] Work Phone: Start: 05-06-2014 End: 05-13-2014 Lipid panel [AGGREGATE] *Lipid Profile CC PCP [facility] Work Phone: Start: 03-04-2014 End: 03-22-2014 *BMP *BMP [facility] Work Phone: Start: 03-04-2014 End: 03-22-2014 CBC W Auto Differential panel - Blood *CBC without Diff [facility] Work Phone: Start: 03-04-2014 End: 03-22-2014 Chest x-ray X-Ray, Chest, PA & Lateral [facility] Work Phone: Start: 03-04-2014 End: 03-22-2014 *BMP *BMP [facility] Work Phone: Start: 03-04-2014 End: 03-22-2014 CBC W Auto Differential panel - Blood *CBC without Diff [facility] Work Phone: Start: 03-04-2014 End: 03-22-2014 Chest x-ray X-Ray, Chest, PA & Lateral [facility] Work Phone: Start: 02-15-2014 End: 03-22-2014 TRIPP ALMAGUER [facility] Work Phone: Start: 02-15-2014 End: 02-15-2014 Echocardiography Echocardiogram (complete) [facility] Work Phone: Start: 02-15-2014 End: 03-22-2014 Follow Up Appt 1 year Follow Up Appt 1 year [facility] Work Phone: Start: 02-15-2014 End: 02-15-2014 Left Heart Cath Left Heart Cath [facility] Work Phone: Start: 02-15-2014 End: 03-22-2014 DJN DJN [facility] Work Phone: Start: 02-15-2014 End: 02-15-2014 Echocardiography Echocardiogram (complete) [facility] Work Phone: Start: 02-15-2014 End: 03-22-2014 Follow Up Appt 1 year Follow Up Appt 1 year [facility] Work Phone: Start: 02-15-2014 End: 02-15-2014 Left Heart Cath Left Heart Cath [facility] Work Phone: Start: 2006 COLOGUARD (FIT-DNA) COLOGUARD (FIT-D NA) [facility] Start: [address] COLONOGRAPHY [facility] Start: 2006 FECAL OCCULT BLOOD FECAL OCCULT BLOO D [facility] Start: 2006 Screening for malign ant neoplasm of colon [facility] Start: 2006 SIGMOIDOSCOPY SIGMOIDOSCOPY [facility] Start: 01-30-1980 Pneumococcal Vaccine : 50+ (1 of 2 - PCV) Pneumococcal Vaccine: 50+ (1 of 2 - PCV) [facility] Start: 01-30-1980 SHINGRIX VACCINE (1 of 2) MEREDITH GRIX VACCINE (1 of 2) [facility] Start: 1979 ANNUAL PCP TEAM 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 TECHNICIAN MAHI DISEASE VISIT ANNUAL PCP TEAM CHRONIC DISEASE VISIT [facility] Start: 1979 Anxiety Screening Anxiety Screening [facility] Start: 1979 BP Controlled (<130/80) BP Controlle d (<130/80) [facility] Start: 1979 Depression Screening Depression Scre ening [facility] Start: 1979 HEPATITIS C SCREENING HEPATITIS C [facility] Start: 1979 Hepatitis C screening Hepatitis C [facility] Start: 1979 HIV SCREENING HIV SCREENING [facility] Start: 1979 HIV screening HIV Screening [facility] Start: 1967 PNEUMOCOCCAL (1 - PCV) PNEUMOCOCCAL (1 - PCV) [facility] Start: 1967 Pneumococcal vaccination Pneum ococcal Vaccine (1 - PCV) [facility] Bacteria identified in Urine by Culture BACTERIAL CULTURE, URINE Microbiology Routine Pelvic pain in female 05/28/2024 4:35 PM EST [facility] End: 05-27-2025 DBT Breast - bilateral screening [facility]IE SCREENING [facility] Routine Encounter for screening mammogram for malignant neoplasm of breast 1 Occurrences starting 04/30/2024 until 05/27/2025 [facility] Work Phone: Comment on above: 1 Occurrences starti ng 04/30/2024 until 05/27/2025 End: 06-27-2025 DBT Breast - bilateral screening [facility]IE SCREENING [facility] Routine Encounter for gynecological examination (general) (routine) without abnormal findings Encounter for screening mammogram for breast cancer 1 Occurrences starting 05/28/2024 until 06/27/2025 [facility] Work Phone: Comment on above: 1 Occurrences starti ng 05/28/2024 until 06/27/2025 DBT Breast - bilater al screening [facility]IE SCREENING [facility] Routine Encounter for screening mammogram for malignant neoplasm of breast 05/28/2024 3:08 PM EST [facility] Work Phone: End: 05-12-2024 ROSIE SCREENING [facility] SCREEN[facility] Radiology Routine Encounter for gynecological examination (general) (routine) without abnormal findings Encounter for screening mammogram for breast cancer 1 Occurrences starting 04/13/2023 until 05/12/2024 [facility] Work Phone: Comment on above: 1 Occurrences starti ng 04/13/2023 until 05/12/2024 End: 05-01-2023 ROSIE SCREENING [facility] SCREEN[facility] Routine Encounter for screening mammogram for breast cancer 1 Occurrences starting 04/01/2022 until 05/01/2023 [facility] Work Phone: Comment on above: 1 Occurrences starti ng 04/01/2022 until 05/01/2023 ROSIE SCREENING [facility] ROSIE SCREENI NG [facility] Routine Encounter for screening mammogram for breast cancer 04/13/2023 2:12 PM EST [facility] Work Phone: PAP TEST PAP TEST Lab Rou chrissie Encounter for gynecological examination (general) (routine) without abnormal findings Encounter for screening for human papillomavirus (HPV) Pap smear for cervical cancer screening Ordered: 05/28/2024 [facility] Comment on above: Ordered: 05/28/2024 [facility] Work Phone: Patient referral [facility] Work Phone: End: 03-08-2023 Screening colonoscopy COLONOSCOPY SCREENING Endoscopy Routine Family history of colon cancer 1 Occurrences starting 03/08/2022 until 03/08/2023 [facility] Work Phone: Comment on above: 1 Occurrences starti ng 03/08/2022 until 03/08/2023 US.doppler Lower ext [facility] Immunizations Immunization Date Immunization Notes Care Provider Fa cili 03-18-2023 influenza, injectabl e, quadrivalent, preservative free Franci Metcalf MD Work Phone: [facility] Work Phone: 03-18-2023 respiratory syncytia l virus (RSV) vaccine, bivalent (ABRYSVO) Franci Metcalf MD Work Phone: [facility] Work Phone: 03-18-2023 influenza virus vaccine, unspecified formulation Franci Metcalf MD Work Phone: [facility] 05-11-2021 zoster vaccine recombinant Franci Metcalf MD Work Phone: [facility] Work Phone: 11-11-2020 zoster vaccine recombinant Franci Metcalf MD Work Phone: [facility] Work Phone: 09-13-2020 COVID-19 original vaccine, full dose, monovalent (MODERNA) Franci Metcalf MD Work Phone: [facility] Work Phone: 02-03-2020 influenza, injectabl e, quadrivalent, preservative free Diane Reynoso PA-C Work Phone: [facility] Work Phone: 02-03-2020 influenza virus vaccine, unspecified formulation Screen Wstr [facility] 02-25-2019 influenza, injectabl e, quadrivalent, preservative free Diane Reynoso PA-C Work Phone: [facility] Work Phone: 02-23-2018 influenza, injectabl e, quadrivalent, preservative free Diane Tatum PA-C Work Phone: [facility] Work Phone: 02-01-2017 influenza, seasonal, injectable Diane Tatum PA-C Work Phone: [facility] Work Phone: 02-25-2015 tetanus toxoid, redu rell diphtheria toxoid, and acellular pertussis vaccine, adsorbed Diane Edgardo PA-C Work Phone: [facility] Work Phone: 2014 influenza, seasonal, injectable Diane Edgardo PA-C Work Phone: [facility] Work Phone: 02-08-2012 influenza, seasonal, injectable Diane Tatum PA-C Work Phone: [facility] Work Phone: Payers Date Payer Category Payer Self-pay [id number] 2023 Private Health Insurance [employer] [place] [employer] POS [id number] 2023-Present [phone] [address] [place] [address] POS [id number] 2023 Private Health Insurance [id number] 2020 Unknown [id number] 2016 Unknown [id number] Unknown [id number] Unknown [id number] Unknown [facility] PACKAGE PLAN [id number] Unknown [id number] Unknown [id number] Unknown [id number] Unknown [id number] .[id number] Unknown [id number] .[id number] Unknown [id number] .462 Unknown [id number] .462 Unknown [id number] .462 Unknown [id number] .462 Unknown [id number] .462 Unknown [id number] .462 Unknown [id number] .462 Unknown [id number] .462 Unknown [id number] .462 Unknown [id number] .462 Social History Date Type Detail Facility Start: 04-03-2021 End: 05-07-2023 Tobacco smoking status NHIS Unknown if ever smoked [facility] Start: 1960 Sex Assigned At Female W [facility] Start: 04-01-2022 End: 05-07-2023 Tobacco smoking status NHIS Never smoked tobacco [facility] Start: 03-08-2022 End: 05-28-2024 Alcohol intake Current drinker of alcohol (finding) [facility] Start: 09-16-2011 Alcohol Comment ocas glass of wine [facility] Start: 1960 Sex Assigned At Not on file [facility] Start: 02-26-2022 End: 04-01-2022 Exposure to SARS-CoV-2 (event) Not sure [facility] Start: 04-01-2022 Tobacco use and exposure Smokeless tobacco non-user [facility] Start: 04-01-2022 End: 04-13-2023 History of Social function [facility] Start: 04-01-2022 End: 04-13-2023 Tobacco use panel [facility] National Score (1-100), lower number is lower risk Not on file [facility] Start: 08-07-2024 Sex Female (finding) [facility] Mental Status Date Assessment Result Facility 05-07-2023 Cognitive function Voice/Name [facility] Work Phone: Clinical Notes 07-12-2006 to 09-11-2024 Note Date & Type Note Facility 09-11-2024 Evaluation note Diagnosis Onset Date Resolution 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 Author Type: Physician Type: Progress Notes Filed: 05/31/2024 22:49 Note Text: The patient presents for requested ultrasound. Full report available in the "Imaging" tab in [facility]. Laurel Barker [facility]01-16-2025 History of Present illness Narrative* Laurel Barker MD - 05/31/2024 10:33 PM EST The patient presents for requested ultrasound. Full report available in the "Imaging" tab in Epic. Laurel Barker MD documented in [facility]01-[facility] Note* Addendum Note - Franci Metcalf MD - 05/28/2024 4:31 PM ESTAddended by: FRANCI METCALF on: 05/28/2024 04:31 PM Modules accepted: Orders [facility]01-13-2025 Miscellaneous Notes* Addendum Note - Franci Metcalf MD - 05/28/2024 4:31 PM ESTAddended by: FRANCI METCALF on: 05/28/2024 04:31 PM Modules accepted: Orders * Addendum Note - Shannon Boland MA - 05/28/2024 4:27 PM ESTAddended by: SHANNON BOLAND on: 05/28/2024 04:27 PM Modules accepted: Orders documented in this encounterH[facility]01-[facility]-2025 Note* Addendum Note - Shannon Bloand MA - 05/28/2024 4:27 PM ESTAddended by: SHANNON BOLAND on: 05/28/2024 04:27 PM Modules accepted: Orders [facility]01-13-2025 NoteHNO ID: [id number] Author: FRANCI METCALF MD Service: ? Author [...] Multiple0 Live Births0 Comment: 4 vaginal deliveries [employer] History LMP: 09/14/2006, Ablation Age at Menarche: 14 Age at First : Age at Menopause: [employer] History Comments: Sexual Activity: Yes; Male; husbands [...] Colon Cancer Father other (triple bypass) Father VT x 2 other (near kidney/liver failure) Father [...] discussed with the Patient or Patient's Authorized Director Of Infection Control. As applicable, any other physician, advance practice provider, medical student, or other health professional student that will be observing or involved in the sensitive examination for educational or training purposes was discussed with the Patient or Authorized Director Of Infection Control. The Patient or Authorized Director Of Infection Control has agreed to proceed with the sensitive examination. (Sensitive examination includes inspection and/or palpation of the breasts, pelvis, prostate and anorectal regions). EXAM: BP 122/70 Ht 5' 4.75" (1.65m) Wt 206 lb (93.4kg) LMP 09/14/2006 [...] external genitalia normal, normal Bartholin's glands, urethra, [place]'s glands, no vulvar lesions, no cervical lesions, physiologic discharge present, normal appearing perineal body and perianal region, cystocele 1st degree, rectocele 1st degree, cervical prolapse 1st degree BIMANUAL: uterus normal size, shape and consistency, no adnexal masses, and non-tender RECTOVAGINAL: rectovaginal exam negative for any masses or nodularity. NEURO: jareth (more content not included)...[facility]01-13-2025 History of Present illness Narrative* Franci Metcalf [...] Multiple0 Live Births0 Comment: 4 vaginal deliveries [employer]ceiving [employer] History LMP: 09/14/2006, Ablation Age at Menarche: 14 Age at First : Age at Menopause: [employer] History Comments: Sexual Activity: Yes; Male; husbands [...] Colon Cancer Father other (triple bypass) Father VT x 2 other (near kidney/liver failure) Father [...] discussed with the Patient or Patient's Authorized Director Of Infection Control. As applicable, any other physician, advance practice provider, medical student, or other health professional student that will be observing or involved in the sensitive examination for educational or training purposes was discussed with the Patient or Authorized Director Of Infection Control. The Patient or Authorized Director Of Infection Control has agreed to proceed with the sensitive examination. (Sensitive examination includes inspection and/or palpation of the breasts, pelvis, prostate and anorectal regions). EXAM: BP 122/70 Ht 5' 4.75" (1.65m) Wt 206 lb (93.4kg) LMP 09/14/2006 [...] external genitalia normal, normal Bartholin's glands, urethra, [place]'s glands, no vulvar lesions, no cervical lesions, [...] needed Franci Metcalf MD documented in [facility]01-[facility] History of Present illness Narrative* Asif [...] PATIENT PRESENTS WITH AN IMPLANTABLE OR ATTACHED HOME MANAGEMENT SUPERVISOR: No RADIOLOGY DEPARTMENT: Mammography PERIPHERAL IV DATA: Not applicable SIGNED BY: Jaspreet Lizama May 28, 2024 3:25 PM documented in this encounterH[facility]01-13-2025 NoteHNO ID: [id number] Author: ASIF NGUYEN Mammo Tech Service: ? Author Type: General Neurologist Type: Progress Notes Filed: 05/28/2024 15:25 Note [...] PATIENT PRESENTS WITH AN IMPLANTABLE OR ATTACHED HOME MANAGEMENT SUPERVISOR: No RADIOLOGY DEPARTMENT: Mammography PERIPHERAL IV DATA: Not applicable SIGNED BY: Enedina Lizamao [employer] May 28, 2024 3:25 [facility]12-13-2024 Telephone encounter Note* Telephone Encounter - Emily Tamayo RN - 04/27/2024 4:53 PM EST Patient needs Mamm with NCIOLLE order. Please file and then route to PSS to call patient and assist with scheduling. Emily Tamayo RN [facility]12-13-2024 Miscellaneous Notes* Telephone Encounter - Emily Tamayo RN - 04/27/2024 4:53 PM EST Patient needs Mamm with NICOLLE order. Please file and then route to PSS to call patient and assist with scheduling. Emily Tamayo RN documented in this encounterH[facility]11-30-2023 Miscellaneous Notes* Letter - Coordinator, Mammography - 04/14/2023 2:08 PM EST April 15, 2023 PID: [id number] Serafin Pruett [address] [place] [address] Dear Ms. Pruett, We are pleased to [...] report will be kept on file at [facility] as part of your permanent medical record and are available for your continuing care. Thank you for allowing us to help in meeting your health care needs. Sincerely, Dr. Hdez Interpreting Radiologist [facility] (Normal over 40) documented in this encounterHarrison [facility] Hospital11-29-2023 History of Present illness Narrative* Franci [...] Multiple0 Live Births0 Comment: 4 vaginal deliveries [employer] History LMP: 09/14/2006, Ablation Age at Menarche: Age at First : Age at Menopause: [employer] History Comments: Sexual Activity: Yes; Male; husbands [...] Colon Cancer Father other (triple bypass) Father VT x 2 other (near kidney/liver failure) Father [...] medication updated:Yes EXAM: BP 122/74 Ht 5' 5" (1.65m) Wt 201 lb (91.2kg) LMP 09/14/2006 [...] external genitalia normal, normal Bartholin's glands, urethra, [place]'s glands, no vulvar lesions, no cervical lesions, [...] needed Franci Metcalf MD documented in this encounterHarrison [facility] Hospital11-29-2023 History of Present illness Narrative* Nathen, Asif, Mammo Yaneth - 04/13/2023 1:50 PM EST Radiology Service [...] 13, 2023 1:45 PM documented in this encounterHarrison [facility] Hospital03-09-2023 Miscellaneous Notes* Telephone Encounter - Celena Persaud RN - 07/22/2022 12:55 PM EST 2016 colonoscopy report faxed to Dr. Brett Leon. Fax confirmation sheet received. Celena Persaud RN * Telephone Encounter - Berenice Villagran LPN - 07/22/2022 10:23 AM EST Patient called in requesting Colonoscopy report sent to brett leon office. Berenice Villagran LPN documented in this encounterHarrison [facility] Hospital11-17-2022 Miscellaneous Notes* Letter - Mammography Coordinator - 04/01/2022 11:14 PM EST April 01, 2022 PID: [id number] Serafin Pruett [address] [place] [address] Dear Ms. Pruett, We are pleased to [...] report will be kept on file at [facility] as part of your permanent medical record and are available for your continuing care. Thank you for allowing us to help in meeting your health care needs. Sincerely, Dr. Dsouza Interpreting Radiologist [facility] (Normal over 40) documented in this encounterHarrison [facility] Hospital11-17-2022 History of Present illness Narrative* Pily [...] 01, 2022 9:55 AM documented in this encounterHarrison [facility] Hospital11-17-2022 History of Present illness Narrative* Franci [...] Multiple0 Live Births0 Comment: 4 vaginal deliveries [employer]ceiving [employer] Processing History LMP: 09/14/2006, Ablation Age at Menarche: Age at First : Age at Menopause: [employer] History Comments: Sexual Activity: Yes; Male; husbands [...] Colon Cancer Father other (triple bypass) Father VT x 2 other (near kidney/liver failure) Father [...] medication updated:Yes EXAM: BP 122/76 Ht 5' 5" (1.65m) Wt 192 lb (87.1kg) LMP 09/14/2006 [...] external genitalia normal, normal Bartholin's glands, urethra, [place]'s glands, no vulvar lesions, no cervical lesions, [...] needed Franci Metcalf MD documented in this encounterHarrison [facility] Hospital10-24-2022 Miscellaneous Notes* Telephone Encounter - Nettie Devine - 03/08/2022 9:23 AM EDT 03/25 COLON LODI * Telephone Encounter - Nettie Devine - 02/25/2022 11:21 AM EDT Patient scheduled for colon consult in office with Diane Reyonso 03/08 Nettie [facility] Communications Engineer * Telephone Encounter - Tianna Trujillo RN - 02/18/2022 4:12 PM EDT Patient calling to schedule colonoscopy. States she received letter stating she was due. Please contact patient to facilitate. [facility] History of Present illness Narrative* Diane [...] Colon Cancer Father other (triple bypass) Father [place] x 2 other (near kidney/liver failure) Father [...] C (96.9 F), height 167.6 cm (5' 6"), weight 87.4 kg (192 lb 9.6 oz), [...] patient was offered a [facility] a [facility]. I have counseled the patient [...] mail. 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/22/2012 documented as of this encounter (statuses as of 03/08/2022) [place] [id number] History of Past illness Narrative* Problem Noted Date Resolved Date Embolism and thrombosis of unspecified site 06/1709/22/2012 Overview: blood clot in right leg Leiomyoma of uterus, unspecified 06/18/2005 09/22/2012 Irregular menstrual cycle 06/18/20052012 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 09/22/2012 documented as of this encounter (statuses as of 03/31/2022) [place] [id number] History of Past illness Narrative* Problem Noted Date Resolved Date Embolism and thrombosis of unspecified site 06/1709/22/2012 Overview: blood clot in right leg Leiomyoma of uterus, unspecified 06/18/2005 09/22/2012 Irregular menstrual cycle 06/18/20052012 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 09/22/2012 documented as of this encounter (statuses as of 04/01/2022) [facility] of Past illness Narrative* Problem Noted Date Resolved Date Embolism and thrombosis of unspecified site 06/1709/22/2012 Overview: blood clot in right leg Leiomyoma of uterus, unspecified 06/18/2005 09/22/2012 Irregular menstrual cycle 06/18/20052012 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 09/22/2012 documented as of this encounter (statuses as of 04/03/2022) [facility] of Past illness Narrative* Problem Noted Date Resolved Date Embolism and thrombosis of unspecified site 06/1709/22/2012 Overview: blood clot in right leg Leiomyoma of uterus, unspecified 06/18/2005 09/22/2012 Irregular menstrual cycle 06/18/20052012 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 09/22/2012 documented as of this encounter (statuses as of 07/22/2022) [place] [id number] History of Past illness Narrative* Problem Noted Date Diagnosed Date Resolved Date Embolism and thrombosis of unspecified site 07/12/2006 09/22/2012 Overview: blood clot in right leg Leiomyoma of uterus, unspecified 06/18/2005 09/22/2012 Irregular menstrual cycle 06/18/2005 Iron deficiency anemia secon alesia to blood loss (chronic) 06/18/2005 09/22/2012 documented as of this encounter (statuses as of 03/20/2023) [place] [id number] History of Past illness Narrative* Problem Noted Date Diagnosed Date Resolved Date Embolism and thrombosis of unspecified site 07/12/2006 09/22/2012 Overview: blood clot in right leg Leiomyoma of uterus, unspecified 06/18/2005 09/22/2012 Irregular menstrual cycle 06/18/2005 Iron deficiency anemia secon alesia to blood loss (chronic) 06/18/2005 09/22/2012 documented as of this encounter (statuses as of 04/14/2023) [place] [id number] History of Past illness Narrative* Problem Noted Date Diagnosed Date Resolved Date Embolism and thrombosis of unspecified site 07/12/2006 09/22/2012 Overview: blood clot in right leg Leiomyoma of uterus, unspecified 06/18/2005 09/22/2012 Irregular menstrual cycle 06/18/2005 Iron deficiency anemia secon alesia to blood loss (chronic) 06/18/2005 09/22/2012 documented as of this encounter (statuses as of 04/14/2023) [facility] of Past illness Narrative* Problem Noted Date Diagnosed Date Resolved Date Embolism and thrombosis of unspecified site 07/12/2006 09/22/2012 Overview: blood clot in right leg Leiomyoma of uterus, unspecified 06/18/2005 09/22/2012 Irregular menstrual cycle 06/18/2005 Iron deficiency anemia michi dumas to blood loss (chronic) 06/18/2005 09/22/2012 documented as of this encounter (statuses as of 04/16/2023) [facility] noteNo assessment information availableWUniversity Hospitals St[facility] Work Phone: evaluation note* Diagnosis Encounter for screening for malignant neoplasm of colon- Primary Special screening for malignant neoplasms, colon Family history of colon cancer Family history of malignant neoplasm of gastrointestinal tract Tortuous colon Volvulus documented in this encounter [facility] note* Diagnosis Onset Date Resolution Status Atherosclerotic heart diseas e of sioux coronary artery without angina pectoris chronic Essential hypertension chron ic [facility] Work Phone: evaluation note* Diagnosis Family history of colon cancer- Primary Family history of malignant neoplasm of gastrointestinal tract documented in this encounter [facility] note* Diagnosis Encounter for gynecological examination (general) (routine) without abnormal findings- Primary Encounter for screening mammogram for breast cancer Obesity, Class I, BMI 30-34.9 Obesity, unspecified documented in this encounter [facility] note* Diagnosis Encounter for gynecological examination (general) (routine) without abnormal findings Encounter for screening mammogram for breast cancer documented in this encounter [facility] note* Diagnosis Encounter for gynecological examination (general) (routine) without abnormal findings- Primary Encounter for screening mammogram for breast cancer documented in this encounter [facility] note* Diagnosis Encounter for screening mammogram for breast cancer documented in this encounter [facility] note* Diagnosis Onset Date Resolution Status 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 Work Phone: Evaluation note* Diagnosis Encounter for screening mammogram for malignant neoplasm of breast- Primary Other screening mammogram documented in this encounter [facility] note* Diagnosis Encounter for gynecological examination (general) (routine) without abnormal findings- Primary Encounter for screening for human papillomavirus (HPV) Special screening examination for human papillomavirus (HPV) Pap smear for cervical cancer screening Screening for malignant neoplasm of the cervix Encounter for screening mammogram for breast cancer Pelvic pain in female Unspecified symptom associated with female genital organs documented in this encounter [facility] note* Diagnosis Encounter for screening mammogram for malignant neoplasm of breast Other screening mammogram documented in this encounter [facility] note* Diagnosis Pelvic pain in female- Primary Unspecified symptom associated with female genital organs Fibroids, subserous Subserous leiomyoma of uterus documented in this encounter [facility] for referral (narrative)* Outpatient Procedure (Routine) - Closed Specialty Diagnoses / Procedures Referred By Иван christine Referred To Contact [facility] Diagnoses Family history of colon cancer Procedures COLONOSCOPY SCREENING COLONOSCOPY SCREENING COLONOSCOPY FLX DX W/COLLJ SPEC WHEN PFRMD Joelle Casas MD [address] [place] [address] [facility] [address] [place] [id number] Referral ID Status Reason Start Date Expiration Date V isits Requested Visits Authorized [id number] Closed Auto-Generate d Referral 03/08/2022 03/08/2023 1 1 [facility] for referral (narrative)* Diagnostic Procedure Only (Routine) - Pending Review Specialty Diagnoses / Procedures Referred By Иван christine Referred To Contact [facility] Diagnoses Encounter for screening mammogram for breast cancer Procedures ROSIE SCREENING W NICOLLE SCREENING DIGITAL BREAST TOMOSYNTHESIS BI SCREENING MAMMOGRAPHY BI 2-VIEW BREAST INC CAD Franci Metcalf MD [address] [place] [address] [facility] [address] [place] [phone] Referral ID Status Reason Start Date Expiration Date Visits Requested Visits Authorized [id number] Pending Review Auto-Generat ed Referral 2 05/01/2023 1 1 [facility] for referral (narrative)* Diagnostic Procedure Only (Routine) - Closed Specialty Diagnoses / Procedures Referred By Иван christine Referred To Contact [facility] Diagnoses Encounter for gynecological examination (general) (routine) without abnormal findings Encounter for screening mammogram for breast cancer Procedures ROSIE SCREENING SCREENING MAMMOGRAPHY BI 2-VIEW BREAST INC CAD Franci Metcalf MD [address] [place] [address] [facility] [address] [place] [address] Referral ID Status Reason Start Date Expiration Date V isits Requested Visits Authorized [id number] Closed Auto-Generate d Referral 04/01/2022 05/15/2022 1 1 [facility] for referral (narrative)* Diagnostic Procedure Only (Routine) - Pending Review Specialty Diagnoses / Procedures Referred By Иван christine Referred To Contact [facility] Diagnoses Encounter for gynecological examination (general) (routine) without abnormal findings Encounter for screening mammogram for breast cancer Procedures ROSIE SCREENING SCREENING MAMMOGRAPHY BI 2-VIEW BREAST INC CAD Franci Metcalf MD [address] [place] [address] [facility] [place] [address] Referral ID Status Reason Start Date Expiration Date Visits Requested Visits Authorized [id number] Pending Review Auto-Generat ed Referral 3 05/12/2024 1 1 [facility] for referral (narrative)* Diagnostic Procedure Only (Routine) - Authorized Specialty Diagnoses / Procedures Referred By Иван christine Referred To Contact [facility] Diagnoses Encounter for screening mammogram for malignant neoplasm of breast Procedures ROSIE SCREENING W NICOLLE SCREENING DIGITAL BREAST TOMOSYNTHESIS BI SCREENING MAMMOGRAPHY BI 2-VIEW BREAST INC CAD Wes Argueta, MANUELA.BELT FIXER [address] [place] [address] [facility] [address] [place] [address] Referral ID Status Reason Start Date Expiration Date Visits Requested Visits Authorized [id number] Authorized Auto-Generat ed Referral 05/27/2025 1 1 [facility] Diagnostic Procedure Only (Routine) - Authorized Specialty Diagnoses / Procedures Referred By Contac t Referred To Contact [facility] Diagnoses Pelvic pain in female Procedures PELVIC US WHI US PELVIC NONOBSTETRIC REAL-TIME IMAGE COMPLETE Franci Metcalf MD [address] [place] [address] [address] Referral ID Status Reason Start Date Expiration Date Visits Requested Visits Authorized [id number] Authorized Auto-Generat ed Referral 05/28/2024 05/28/2025 1 1 * Diagnostic Procedure Only (Routine) - Authorized Specialty Diagnoses / Procedures Referred By Antoniaac t Referred To Contact [facility] Diagnoses Encounter for gynecological examination (general) (routine) without abnormal findings Encounter for screening mammogram for breast cancer Procedures ROSIE SCREENING W NICOLLE SCREENING DIGITAL BREAST TOMOSYNTHESIS BI SCREENING MAMMOGRAPHY BI 2-VIEW BREAST INC CAD Franci Metcalf MD [address] [place] [address] [facility] [address] [place] [address] Referral ID Status Reason Start Date Expiration Date Visits Requested Visits Authorized [id number] Authorized Auto-Generat ed Referral 05/28/2024 06/27/2025 1 1 [facility] ([facility]arrative)No reason for referral information availableWUniversity Hospitals St. [facility] Work Phone: Reason for visit Narrative* Diagnostic Procedure Only (Routine) - Closed Specialty Diagnoses / Procedures Referred By Contac t Referred To Contact [facility] Diagnoses Encounter for gynecological examination (general) (routine) without abnormal findings Encounter for screening mammogram for breast cancer Procedures ROSIE SCREENING SCREENING MAMMOGRAPHY BI 2-VIEW BREAST INC CAD Franci Metcalf MD [address] [place] [address] [facility] [address] [place] [place] [id number] Referral ID Status Reason Start Date Expiration Date V isits Requested Visits Authorized [id number] Closed Auto-Generate d Referral 04/01/2022 05/15/2022 1 1 [facility] for visit Narrative* Diagnostic Procedure Only (Routine) - Closed Specialty Diagnoses / Procedures Referred By Иван t Referred To Contact [facility] Diagnoses Encounter for screening mammogram for breast cancer Procedures ROSIE SCREENING W NICOLLE SCREENING DIGITAL BREAST TOMOSYNTHESIS BI SCREENING MAMMOGRAPHY BI 2-VIEW BREAST INC CAD Franci Metcalf MD [address] [place] [address] [facility] [address] [place] [phone] Referral ID Status Reason Start Date Expiration Date V isits Requested Visits Authorized [id number] Closed Auto-Generate d Referral 04/01/2022 05/01/2023 1 0 [facility] for visit Narrative* Diagnostic Procedure Only (Routine) - Closed Specialty Diagnoses / Procedures Referred By Иван t Referred To Contact [facility] Diagnoses Encounter for screening mammogram for malignant neoplasm of breast Procedures ROSIE SCREENING W NICOLLE SCREENING DIGITAL BREAST TOMOSYNTHESIS BI SCREENING MAMMOGRAPHY BI 2-VIEW BREAST INC CAD Wes Argueta, MANUELA.BELT FIXER [address] [place] [address] [facility] [address] [place] [address] Referral ID Status Reason Start Date Expiration Date V isits Requested Visits Authorized [id number] Closed Auto-Generate d Referral 04/30/2024 05/27/2025 1 1 [facility] for visit Narrative* Diagnostic Procedure Only (Routine) - Closed Specialty Diagnoses / Procedures Referred By Иван christine Referred To Contact [facility] Diagnoses Pelvic pain in female Procedures PELVIC US WHI US PELVIC NONOBSTETRIC REAL-TIME IMAGE COMPLETE Franci Metcalf MD [address] [place] [address] [facility] [address] [place] [address] Referral ID Status Reason Start Date Expiration Date V isits Requested Visits Authorized [id number] Closed Auto-Generate d Referral 05/28/2024 05/28/2025 1 1 [facility] Chief Complaint and Reason for Visit Chief Complaint 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, CP - R/O PE PAIN- COPY PCP Chief Complaint NONDISP FX MED RT RI NG FIN,CONTUS RT HAND Chief Complaint 10 MO F/U NONDISP FX MED RT RING FIN,CONTUS RT HAND Reason for Visit Atherosclerotic hear t disease of sioux coronary artery without angina pectoris Essential hypertension [...] 2DRS, SABI AND 2 ORDERS chest pain Reason for Visit Atherosclerotic hear t disease of [place] coronary artery without angina pectoris Essential hypertension Hyperlipidemia Chief Complaint 1 Y FU S/O- 2DRS, SABI AND 2 ORDERS chest pain S/O- COPY PCP Reason for Visit Atherosclerotic hear t disease of sioux coronary artery without angina pectoris Essential hypertension Hyperlipidemia Chief Complaint 1 Y FU S/O- 2DRS, SABI AND 2 ORDERS chest pain S/O- COPY PCP ABDOMINAL PAIN Reason for Visit Atherosclerotic hear t disease of si[place] coronary artery without angina pectoris Essential hypertension Hyperlipidemia Chief Complaint chest pain S/O- COPY PCP ABDOMINAL PAIN Chief Complaint S/O- COPY PCP ABDOMINAL PAIN S/O- PAIN- COPY PCP 6 M FU LT LEG PAIN Reason for Visit History of DVT (deep vein thrombosis) Atherosclerotic heart disease of sioux coronary artery without angina pectoris Essential hypertension Hyperlipidemia Chief Complaint Admit Date PAIN- COPY PCP May 25, 2024 1 0:03am Amb Documentation May 31, 2024 3 :55pm [facility] USE OF ANTICOAGULANT June 28, 2024 8:55am Reason for Visit Admit Date History of DVT (deep vein thrombosis) Fe bruary 2024 8:55am Chief Complaint Admit Date 6 M FU September 11, 2024 10: 53am HTHN, HLD October 12, 2024 7:10a m PAIN- COPY PCP October 29, 2024 1:41 pm Amb Documentation October 30, 2024 3:06 pm Reason for Visit Admit Date Atherosclerotic heart diseas e of [place] coronary artery without angina pectoris September 11, 2024 10:53am Essential hypertension September 11, 2024 10:53am Hyperlipidemia September 11, 2024 10: 53am Chief Complaint Admit Date PAIN- COPY PCP October 29, 2024 1:41 pm Amb Documentation October 30, 2024 3:06 pm Pain January 18, 2025 3:10pm Family History No Family History Records Found [...] Date/ Time Advance Directives No December 14 8:54am Living Will No July 17, 2020 12:40pm Power of Job Checker No July 17 12:40pm Advance Directive Response Recorded Date/ Time Advance Directives No December 14 016 7:54am Living Will No July 17, 2020 11:40am Power of Job Checker No July 17 11:40am Advance Directive Response Recorded Date/ Time Advance Directives No December 14 016 7:54am Living Will No May 07 2 023 2:33am Power of Job Checker No May 07, 2023 2:33am Advance Directive Response Recorded Date/ Time Advance Directives No December 14 016 8:54am Living Will No May 07, 2 023 3:33am Power of Job Checker No May 07, 2023 3:33am Advance Directive Response Recorded Date/ Time Advance Directives No December 14 016 8:54am Advance Directive Response Recorded Date/ Time Living Will No May 07, 2 023 3:33am Do you have a Healthcare Power of Job Checker? No May 07, 2023 3:33am Advance Directives No December 14 016 8:54am Summary Purpose Additional Source Comments [...] or prosecute any alcohol or drug abuse patient.[facility] Hospital[facility] the event this information is protected by the Federal Confidentiality of Alcohol and Drug Abuse Patient Records regulations: The Federal rules restrict any use of the information to criminally investigate or prosecute any alcohol or drug abuse patient.[facility] HospitalIn the event this information is protected by the Federal Confidentiality of Alcohol and Drug Abuse Patient Records regulations: The Federal rules restrict any use of the information to criminally investigate or prosecute any alcohol or drug abuse patient.[facility] Hospital[facility] the event this information is protected by the Federal Confidentiality of Alcohol and Drug Abuse Patient Records regulations: The Federal rules restrict any use of the information to criminally investigate or prosecute any alcohol or drug abuse patient.[facility] HospitalIn the event this information is protected by the Federal Confidentiality of Alcohol and Drug Abuse Patient Records regulations: The Federal rules restrict any use of the information to criminally investigate or prosecute any alcohol or drug abuse patient.[facility] HospitalIn the event this information is protected by the Federal Confidentiality of Alcohol and Drug Abuse Patient Records regulations: The Federal rules restrict any use of the information to criminally investigate or prosecute any alcohol or drug abuse patient.[facility] Hospital[facility] the event this information is protected by the Federal Confidentiality of Alcohol and Drug Abuse Patient Records regulations: The Federal rules restrict any use of the information to criminally investigate or prosecute any alcohol or drug abuse patient.[facility] Hospital[facility] the event this information is protected by the Federal Confidentiality of Alcohol and Drug Abuse Patient Records regulations: The Federal rules restrict any use of the information to criminally investigate or prosecute any alcohol or drug abuse patient.[facility] HospitalIn the event this information is protected by the Federal Confidentiality of Alcohol and Drug Abuse Patient Records regulations: The Federal rules restrict any use of the information to criminally investigate or prosecute any alcohol or drug abuse patient.[facility] HospitalIn the event this information is protected by the Federal Confidentiality of Alcohol and Drug Abuse Patient Records regulations: The Federal rules restrict any use of the information to criminally investigate or prosecute any alcohol or drug abuse patient.[facility] HospitalIn the event this information is protected by the Federal Confidentiality of Alcohol and Drug Abuse Patient Records regulations: The Federal rules restrict any use of the information to criminally investigate or prosecute any alcohol or drug abuse patient.[facility] Hospital[facility] the event this information is protected by the Federal Confidentiality of Alcohol and Drug Abuse Patient Records regulations: The Federal rules restrict any use of the information to criminally investigate or prosecute any alcohol or drug abuse patient.[facility] HospitalIn the event this information is protected by the Federal Confidentiality of Alcohol and Drug Abuse Patient Records regulations: The Federal rules restrict any use of the information to criminally investigate or prosecute any alcohol or drug abuse patient.[facility] Reason for Visit (unrecogniz ed section and content) Reason Comments Consult colonoscopy Specialty Diagnoses / Procedures Referred By Contac t Referred To Contact General Surgery / GENERAL SURGERY Diagnoses COLONOSCOPY RECALL LETTER Procedures NEW DDI PATIENT Self Diane Reynoso PA-C [address] [place] [address] Referral ID Status Reason Start Date Expiration Date Visits Re quested Visits Authorized [id number] Closed 03/08/2022 05/15/2022 1 1 Reason Comments 03/25 COLON LODI Reason Comments Yearly Exam Specialty Diagnoses / Procedures Referred By Contac t Referred To Contact FINISHER OPERATOR Diagnoses annual Procedures [facility] ANNUAL PATIENT Self Franci Metcalf MD [address] [place] [address] Referral ID Status Reason Start Date Expiration Date Visits Re quested Visits Authorized [id number] Closed 04/01/2022 05/15/2022 1 1 Reason Comments Results Specialty Diagnoses / Procedures Referred By Contac t Referred To Contact FINISHER OPERATOR Diagnoses Encounter for gynecological examination (general) (routine) without abnormal findings Annual exam Procedures WELLNESS EXAMS EST 40-64 YRS EST [facility] ANNUAL PATIENT Self Franci Metcalf MD [address] [place] [address] Referral ID Status Reason Start Date Expiration Date Visits Re quested Visits Authorized [id number] Closed 03/28/2023 05/15/2023 1 1 Reason Comments Orders Reason Comments Yearly Exam With Mammogram Care Teams (unrecognized sec tion and content) Student Admissions Clerk Relationship Specialty Start Date End Date Brett Leon [address] [facility] [address] [place] [address] PCP - General 08/13/03 Student Admissions Clerk Relationship Specialty Start Date End Date Brett Leon [address] [facility] [address] [place] [address] PCP - General 08/13/03 Student Admissions Clerk Relationship Specialty Start Date End Date Brett Leon [address] [facility] [address] [place] [address] PCP - General 08/13/03 Student Admissions Clerk Relationship Specialty Start Date End Date Brett Leon [address] [facility] [address] [place] [address] PCP - General 08/13/03 Team Status: Active [...] Schmidt MD Attending Provider, Referring Provider Active Student Admissions Clerk Relationship Specialty Start Date End Date Brett Leoner [address] [facility] [address] [place] [address] PCP - General 08/13/03 Team Status: Inactive [...] MD Attending Provider, Referring Provide r Active Student Admissions Clerk Relationship Specialty Start Date End Date MartitaBrett [address] [facility] [address] [place] [address] PCP - General 08/13/03 Student Admissions Clerk Relationship Specialty Start Date End Date Brett Leon [address] [facility] [address] [place] [address] PCP - General 08/13/03 Student Admissions Clerk Relationship Specialty Start Date End Date [address]itaBrett [address] [place] [address] PCP - General 08/13/03 Student Admissions Clerk Relationship Specialty Start Date End Date Brett Leon [address] [place] [address] PCP - General 08/13/03 Team Status: Inactive Member Role Status Dates Dr. Brett Leon MD Primary Care Provider, Referrin g Provider Active Lashawn Dahl EGG CASER, EGG CASER-C Attending Provider Active Team Status: Inactive Member Role Status Dates Dr. Brett Leon MD Primary Care Provider Active Lashawn Dahl EGG CASER, EGG CASER-C Attending Provider, Referring P rovider Active Dr. [...] MD Primary Care Provider Active Lashawn Dahl EGG CASER, EGG CASER-C Attending Provider, Referring P rovider Active Team Status: Inactive Member Role Status Dates Dr. Brett Leon MD Primary Care Provider Active Lashawn Dahl EGG CASER, EGG CASER-C Attending Provider, Referring P rovider Active Student Admissions Clerk Relationship Specialty Start Date End Date Brett Leon [address] [address] [place] [address] PCP - General 08/13/03 Student Admissions Clerk Relationship Specialty Start Date End Date Brett Leon [address] [place], [place] [id number] PCP - General 08/13/03 Student Admissions Clerk Relationship Specialty Start Date End Date Martita Brett Keysha [address] [facility] [address] [place] [address] PCP - General 08/13/03 Team Status: Active [...] July 27, 2024 End: July 27, 2024 Team Status: Active Member Role Status Dates Pam Dickinson MD Primary Care Provider Active Team Status: Inactive Member Role Status Dates Dr. Brett Leon MD Primary Care Provider Active Start: September 11, 2024 End: September 11, 2024 Dr. Brett Leon MD Referring Provider Active Start: September 11, 2024 End: September 11, 2024 Dr. Keith Mccray MD Attending Provider Active S tart: September 11, 2024 End: September 11, 2024 Team Status: Active Member Role Status Dates Dr. Keith Mccray MD Attending Provider Active S tart: October 12, 2024 Dr. Keith Mccray MD Referring Provider Active S tart: October 12, 2024 Pam Dickinson MD Primary Care Provider Active St art: October 12, 2024 Team Status: Inactive Member Role Status Dates Pam Dickinson MD Primary Care Provider Active St art: October 29, 2024 End: October 29, 2024 Dr. Sonia Schmidt MD Attending Provider Active Start: October 29, 2024 End: October 29, 2024 Dr. Sonia Schmidt MD Referring Provider Active Start: October 29, 2024 End: October 29, 2024 Team Status: Active Member Role Status Dates Pam Dickinson MD Primary Care Provider Active St art: October 30, 2024 Lashawn Dahl EGG CASER, EGG CASER-C Attending Provider Active Start: October 30, 2024 Team Status: Active Member Role/Relationship Status Dates Pam Dickinson MD Primary care physician Active Team Status: Inactive Member Role/Relationship Status Dates Pam Dickinson MD Primary care physician Active S tart: October 29, 2024 End: October 29, 2024 Dr. Sonia Schmidt MD Attending physician Active Start: October 29, 2024 End: October 29, 2024 Dr. Sonia Schmidt MD Referring Provider Active Start: October 29, 2024 End: October 29, 2024 Team Status: Active Member Role/Relationship Status Ximena Dickinson MD Primary care physician Active S tart: October 30, 2024 Lashawn Dahl NP, EGG CASER-C Attending physician Active Start: October 30, 2024 Team Status: Inactive Member Role/Relationship Status Dates Pam Dickinson MD Primary care physician Active S tart: January 18, 2025 End: January 18, 2025 Dr. Sonia Schmidt MD Attending physician Active Start: January 18, 2025 End: January 18, 2025 Dr. Sonia Schmidt MD Referring Provider Active Start: January 18, 2025 End: January 18, 2025 INFORMATION SOURCE (unrecogn ized section and content) DATE CREATED AUTHOR 03/27/2022 [facility] DATE CREATED AUTHOR AUTHOR'S ORGANIZ ATION 06/06/2024 [facility] DATE CREATED AUTHOR AUTHOR'S ORGANIZ ATION 03/21/2025 [facility] FOR RECORDS PERTAINING TO PATIENTS WHO [...] BE BASED ON THE PRIMARY CLINICAL RECORDS. [employer] provides no warranty or guarantee of the accuracy or completeness of information in this document.
== END | disposition home or self-care (01) ==
LOC: OPBD 13:50
PROVIDERS: PCP Family Medicine; Referring Provider Family Medicine; Visit Provider Family Medicine
DX: M06.9 Rheumatoid arthritis, unspecified (principal)
CPT/HCPCS: 77080

== ENCOUNTER → 2025-04-08 | Outpatient (CLI) | payer OTHER, SELFPAY ==
--- NOTE | 2025-04-08 09:00 | RAD_ITS ---
PROCEDURE: INJ/ASP EDWARD JT SHOULD/HIP/KNEE 04/08/2025 REASON FOR EXAM: PAIN IN RIGHT HIP TECHNIQUE: Procedure Code: RADINJ/ASP MJ Modality: DX Procedure: INJ/ASP EDWARD JT SHOULD/HIP/KNEE. Right hip injection. The procedure as well as the benefits and possible complications including infection and bleeding were explained to the patient. Informed consent was obtained. The patient was in the supine position. The overlying skin was prepped and draped in the usual sterile fashion. Following local anesthetic application and under direct fluoroscopic guidance, a 22 gauge spinal needle was placed into the right hip joint. 2 cc of Isovue-300 was injected for confirmation. Following this, 80 mg of Kenalog and 5 cc of 1% lidocaine was injected COMPARISON: Prior examination of the pelvis dated March 19, 2025. FINDINGS: As per physician order. Successful right hip arthrogram. RAD/Inj/Asp Edward Jt Should/Hip/Knee IMPRESSION: Successful right hip arthrogram. The patient tolerated the procedure well. No immediate complication noted. Reading Location: [place] [address]
[2025-04-08] MEDS: Lidocaine 2% (5ml sdv) 5 ML VIAL.MPF INFILT (09:10)
[2025-04-08] MEDS: Lidocaine 1% (5 ml sdv) 5 ML Vial INFILT (09:14)
== END | disposition home or self-care (01) ==
LOC: RAD 08:44
PROVIDERS: PCP Family Medicine; Referring Provider Family Medicine; Visit Provider Family Medicine
DX: M25.551 Pain in right hip (principal)
CPT/HCPCS: 20610; 77002

== ENCOUNTER → 2025-04-19 | Outpatient (CLI) | payer OTHER, SELFPAY ==
[2025-04-19 17:52] LABS: Hematocrit 37.8 % (37-47); Hemoglobin 12.8 g/dL (12.0-15.0); Immature Granulocytes Count 0.020 X10^3/uL (0.0-0.0); Mean Corp Hgb Conc 33.9 g/dL (32-36); Mean Corpuscular Volume 90.6 fL (81-99); Mean Platelet Vol. 9.8 fl (6.2-12.0); NRBC Flagged by Analyzer 0 % (0-5); Platelet Count 317 K/mm3 (150-450); RBC Distribution Width CV 12.6 % (11.6-14.6); RBC Distribution Width SD 41.5 fl (35.1-43.9); Red Blood Count 4.17 M/mm3 (4.2-5.4); White Blood Count 6.9 K/mm3 (4.4-11.0)
[2025-04-19 17:59] LABS: AST(SGOT) 31 U/L (<=31); Alanine Aminotransfer ALT/SGPT 24 U/L (<=34); Albumin, Serum 3.8 g/dL (3.4-4.8); Alkaline Phosphatase 100 U/L (35-104); Anion Gap 11 (5-15); BUN 17 mg/dL (4-19); BUN/Creat Ratio 23.7 RATIO (10-20); Calcium,Total 9.2 mg/dL (7.6-11.0); Carbon Dioxide 27.1 mmol/L (21.0-32.0); Chloride 103 mmol/L (98-108); Globulin 2.6 g/dL (2.2-4.2); Glucose 89 mg/dL (70-99); Potassium 3.6 mmol/L (3.3-5.1)
== END | disposition home or self-care (01) ==
LOC: MTLAB 15:19
PROVIDERS: PCP Family Medicine; Referring Provider Internal Medicine Rheumatology; Visit Provider Internal Medicine Rheumatology
DX: M06.4 Inflammatory polyarthropathy (principal); I10 Essential (primary) hypertension; Z79.899 Other long term (current) drug therapy
CPT/HCPCS: 36415; 80053; 85025